=== PATIENT | female | born 1970 | race African-American/Black ===

== ENCOUNTER 2019-06-22 13:27 | Emergency (ER) | payer BC, SELFPAY ==
--- NOTE | 2019-06-22 13:33 | ED.LOWEXIN ---
HPI - Extremity Injury (Lower) General Chief Complaint: Recheck/Abnormal Lab/Rx Stated Complaint: post op complications Time Seen by Provider: 06/22/19 13:30 Source: patient and RN notes reviewed Mode of arrival: EMS Limitations: language barrier (Non-verba;) History of Present Illness HPI Narrative: Pt is a 48 y/o female presenting to the ED c/o bleeding from stump. EMS report they received a call from the pt's halfway residence stating the pt's stump post a right above knee amputation had uncontrolled bleeding. EMS state the halfway is unaware of who or where the pt had the surgery or how long ago it was. HPI is limited due to pt being non-verbal. All information provided by EMS. Onset (ago): unknown Place: home Other symptoms: none Related Data Allergies Allergy/AdvReac Type Severity Reaction Status Date / Time No Known Allergies Allergy Verified 06/22/19 13:41 Review of Systems Review of Systems: Narrative: ROS is limited due to pt being non-verbal. All systems reviewed & are unremarkable except as noted in HPI and below Hematologic/Lymphatic: Hematologic/Lymphatic: Reports other (Bleeding from RLE stump) PMFSH Past Medical History Medical History No significant past medical history Surgical History Surgical History History of right above knee amputation Social History Social History Smoking status: Unknown if ever smoked Gender identity (if verbalized by the patient): Female Exam Const: General: no acute distress, alert and ill appearing (Chronically) Nutritional Appearance: well nourished HENMT: Mouth: Yes lip normal Eyes: Conjunctivae: conjunctivae normal Resp: Effort & Inspection: normal respiratory effort Auscultation: clear to auscultation bilaterally Cardio: Rate: regular rate Rhythm: regular rhythm Skin: General skin exam: normal color Other: Warm; Dry; Healing surgical wound to rt above knee amputation with 2 small areas of wound dehiscence with minimal serous drainage ? no active bleeding Neuro: General: moves all extremities Speech: Abnormal speech present (Non-verbal) Extrem: General: full ROM Psych: Mental Status: mental status grossly normal Course Vital Signs Vital signs: Vital Signs Temperature 36.3 C L 06/22/19 13:35 Pulse Rate 107 H 06/22/19 13:35 Respiratory Rate 18 06/22/19 13:35 Blood Pressure 168/100 H 06/22/19 13:35 Pulse Oximetry 100 06/22/19 13:35 Temperature 36.3 C L 06/22/19 13:35 Pulse Rate 107 H 06/22/19 13:35 Respiratory Rate 18 06/22/19 13:35 Blood Pressure 168/100 H 06/22/19 13:35 Pulse Oximetry 100 06/22/19 13:35 MDM - Extremity Injury (Lower) MDM Narrative Medical decision making narrative: Sent from halfway for bleeding wound. No bleeding on arrival. Her surgeon is located at [facility]. Medical Records Attestation: I reviewed the patient's medical records. Lab Data Attestation: I reviewed the patient's lab results. Discharge Plan Discharge Clinical Impression: Dehiscence of wound Patient Disposition: [place] Alf/Asst Living Condition: Stable Instructions: Antibiotic Form, Wound Dehiscence (ED) Follow-up/Referrals: Chinyere Keller MD [Primary Care Provider] -
[2019-06-22 13:35] VITALS: BP 168/100; PULSE 107; RESP 18; TEMP 36.3; O2SAT 100
--- NOTE | 2019-06-22 15:52 | PC.NURSE ---
[facility] declined return trip to [facility]-way [facility] accepted return to [facility]-way ETA 1hr / Trip #[id number]
[2019-06-22 17:14] VITALS: BP 178/93; PULSE 88; RESP 18; O2SAT 100
--- NOTE | 2019-06-22 17:14 | PC.NURSE ---
[facility].
== END 2019-06-22 17:16 ==
PROVIDERS: Emergency Provider Emergency Medicine; PCP Family Medicine
DX: T87.81 Dehiscence of amputation stump (principal); Z89.611 Acquired absence of right leg above knee
CPT/HCPCS: 99281

== ENCOUNTER 2021-08-26 21:17 | Emergency (ER) | payer BC, SELFPAY ==
--- NOTE | ~2021-08-26 | CT_ITS ---
EXAMINATION: CT brain wo con INDICATION: Patient found unresponsive, altered mental status COMPARISON: None TECHNIQUE: Standard unenhanced head CT. The dose-length product (DLP) was 920.82 mGy-cm. The mA was a djusted according to patient size. Iterative reconstruction technique was employed. FINDINGS: There is a large area of encephalomalacia in the left frontal lobe. Smaller areas of enceph alomalacia are seen in the right periventricular frontal lobe as well as in the inferior frontal lobe s. No suspicious mass or intracranial hemorrhage are identified. The ventricles are normal. There is no abnormal mass effect or midline shift. The nolen-white matter differentiation is normal. The basal cisterns are patent. The orbits are normal. The paranasal sinuses, mastoids and calvarium are normal. IMPRESSION: 1. Areas of prior infarction without acute intracranial abnormality. Reviewed, dictated and finalized at location F.
[2021-08-26 21:20] VITALS: BP 153/101; PULSE 107; RESP 26; TEMP 36.1; O2SAT 100
[2021-08-26 21:28] VITALS: RESP 26
--- NOTE | 2021-08-26 21:29 | ECG_ITS ---
Measurements Intervals [place] Rate: 106 P: 71 CT: 152 QRS: 17 QRSD: 134 T: 140 QT: 372 QTc: 496 Interpretive Statements SINUS TACHYCARDIA POSSIBLE LEFT ATRIAL ENLARGEMENT [-0.1mV P-WAVE IN V1/V2] INTRAVENTRICULAR CONDUCTION DELAY(INCOMPLETE LEFT BUNDLE BRANCH BLOCK) ABNORMAL ECG NO PREVIOUS ECG AVAILABLE FOR COMPARISON Electronically Signed On 08-27-2021 15:04:16 CDT by Angel Winkler M.D.
--- NOTE | 2021-08-26 21:30 | ED.AMS ---
HPI - Altered Mental Status General Chief Complaint: Altered Mental Status Stated Complaint: OD Time Seen by Provider: 08/26/21 21:29 Source: EMS Mode of arrival: EMS Limitations: altered mental status History of Present Illness HPI narrative: Patient is a 50-year-old female brought in by EMS due to altered mental status, decreased responsiveness. According to EMS patient went out for a smoke accompanied by custodial staff member, was brought back and few moments later she was found unresponsive. When EMS arrived patient was unresponsive with pinpoint pupils, was given Narcan 2 mg IV, which reversed her symptoms, patient now alert awake and oriented x2 which is her baseline. EMS states that the nurse who was taking care of the patient told them that patient was not given any medication after she went out for smoke, but patient disputes this, told EMS that the particular nurse did give her medication. Possible patient was given the wrong medication since EMS states that the patient has not been on any opioids or pain medication, nurse was being defensive and not fully cooperative when they arrived. Patient is alert and oriented x2 upon arrival to the emergency room and has no complaints at this time. Related Data Home Medications Medication Instructions Recorded Confirmed Calcium-Vitamin D 600 mg PO DAILY 08/26/21 08/26/21 Lasix 40 mg PO DAILY 08/26/21 08/26/21 Lipitor 80 mg PO HS 08/26/21 08/26/21 Tylenol 650 mg PO PRN 08/26/21 08/26/21 Vitamin D2 50,000 unit PO WEEKLY 08/26/21 08/26/21 aspirin 81 mg PO DAILY 08/26/21 08/26/21 benzonatate 200 mg PO PRN 08/26/21 08/26/21 clonidine 0.2 mg PO TID 08/26/21 08/26/21 ferrous sulfate 325 mg PO EVERY OTHER DAY 08/26/21 08/26/21 ipratropium-albuterol 0.5 mg INHALATION PRN 08/26/21 08/26/21 isosorbide mononitrate 30 mg PO DAILY 08/26/21 08/26/21 labetalol 200 mg PO BID 08/26/21 08/26/21 losartan-hydrochlorothiazide 100 mg PO DAILY 08/26/21 08/26/21 nifedipine 60 mg PO HS 08/26/21 08/26/21 phenytoin 200 mg PO DAILY 08/26/21 08/26/21 Allergies Allergy/AdvReac Type Severity Reaction Status Date / Time No Known Allergies Allergy Verified 08/26/21 21:34 Review of Systems Review of Systems: All systems reviewed & are unremarkable except as noted in HPI and below Constitutional: Constitutional: Denies body ache(s), Denies chills, Denies excessive sweating, Denies fatigue, Denies fever(s), Denies headache(s), Denies lethargy, Denies malaise, Denies weakness and Denies weight loss Eyes: Eyes: Denies blurry vision, Denies change in vision and Denies loss of vision ENT: Denies dizziness, Denies ear discharge, Denies headache(s), Denies lip swelling, Denies epistaxis, Denies nasal congestion, Denies neck pain, Denies throat swelling and Denies tongue swelling Cardiovascular: Cardiovascular: Denies chest pain, Denies chest pain at rest, Denies chest pain with activity, Denies diaphoresis, Denies rapid heart rate, Denies edema, Denies irregular heart rhythm, Denies lightheadedness, Denies palpitations, Denies dyspnea and Denies dyspnea on exertion Respiratory: Respiratory: Denies chest congestion, Denies cough, Denies hemoptysis, Denies dyspnea and Denies dyspnea on exertion Gastrointestinal: Gastrointestinal: Denies abdominal pain, Denies melena, Denies hematochezia, Denies diarrhea, Denies nausea, Denies vomiting and Denies hematemesis Musculoskeletal: Musculoskeletal: Denies abnormal gait, Denies deformity, Denies joint swelling, Denies limited range of motion, Denies neck pain and Denies numbness Neurologic: Denies Abnormal speech present, Denies dizziness, Denies headache(s), Denies focal weakness, Denies loss of vision, Denies numbness, Denies Other visual disturbances, Denies Sensory deficit (Neuro) and Denies weakness Psychiatric: Psychiatric: Denies confusion, Denies depression, Denies auditory hallucinations, Denies homicidal ideation and Denies suicidal ideation Endocrine: Endocrine: Kar
[2021-08-26 21:41] LABS: Basophils Absolute Auto 0.1 K/mm3 (0.0-0.1); Basophils Percent Auto 0.5 % (0.2-1.2); Eosinophils Absolute Auto 0.3 K/mm3 (0-0.3); Eosinophils Percent Auto 3.3 % (0-4.4); Hemoglobin 10.3 g/dL (12.0-15.0); Immature Granulocyte Absolute 0.06 K/mm3 (0.00-0.031); Immature Granulocyte Percent A 0.6 % (0-0.5); Lymphocytes Absolute Auto 2.76 K/mm3 (0.9-3.2); Lymphocytes Percent Auto 27.8 % (18.3-44.2); Mean Corpuscular HGB Conc 31.2 g/dl (32-36); Mean Corpuscular Hemoglobin 27.8 pg (26-34); Mean Corpuscular Volume 88.9 fl (80-100); Mean Platelet Volume 10.6 fl (7.4-10.4); Monocytes Absolute Auto 0.7 K/mm3 (0.1-0.6); Monocytes Percent Auto 7.3 % (2.6-8.5); Neutrophils Percent Auto 60.5 % (45.5-73.1); Platelet Count Result 229 k/mm3 (150-375); Red Blood Count 3.71 M/mm3 (4.2-5.4); Red Cell Distribution Width 16.3 % (11.5-14.5); White Blood Count 9.9 K/mm3 (4.5-10.0)
[2021-08-26 21:55] LABS: Alanine Aminotransferase 18 U/L (4-35); Albumin Level 3.7 g/dL (3.5-5.1); Alkaline Phosphatase 110 U/L (38-126); Anion Gap 6 mmol/L (8-16); Aspartate Amino Transferase 31 U/L (14-36); Bilirubin,Total 0.2 mg/dL (0.2-1.3); Blood Urea Nitrogen 32 mg/dL (7-17); Calcium 8.4 mg/dL (8.4-10.2); Carbon Dioxide 27 mmol/L (22-30); Chloride 105 mmol/L (98-107); Estimated Glomerular Filt Rate 40; Glucose 124 mg/dL (65-110); Potassium 3.9 mmol/L (3.4-5.0); Sodium 138 mmol/L (137-145)
[2021-08-26] MEDS: SODIUM CHLORIDE 0.9% IV 1,000 ML 999 ML IV CONT (21:58)
[2021-08-26 22:10] VITALS: BP 175/91; PULSE 100; RESP 22; O2SAT 100
[2021-08-26 22:16] VITALS: BP 174/100; PULSE 108; RESP 25; O2SAT 98
[2021-08-26 22:17] VITALS: BP 150/101; PULSE 106; RESP 20; O2SAT 100
[2021-08-26 22:50] LABS: Add Urine Microscopic? YES; Appearance Urine Clear (Clear); Bacteria Urine 3+ /hpf; Bilirubin Urine Negative (Negative); Blood Urine Negative (Negative); Color Urine Yellow (Yellow); Glucose Urine UA Negative (Negative); Ketones Urine Negative (Negative); Leukocyte Esterase Ur Negative LEU/UL (Negative); Mucus Urine Rare /lpf; Nitrate Urine Positive (Negative); Protein Urine 2+ mg/dL (Negative); Specific Grav Ur 1.017 (1.001-1.035); Squamous Epithelial Cell Urine Occasional /hpf (Few); Urobilinogen Urine Negative mg/dL (<2.0); WBC Urine 0-3 /hpf
[2021-08-26 22:52] LABS: Amphetamine Screen Urine Negative (Negative); Barbiturate Screen Urine Negative (Negative); Benzodiazepines Screen Urine Negative (Negative); Cannabinoid Screen Urine Negative (Negative); Cocaine Screen Urine Negative (Negative); Methadone Screen Urine Negative (Negative); Opiate Screen Urine Negative (Negative); Phencyclidine Screen Urine Negative (Negative)
[2021-08-27 01:11] VITALS: PULSE 111; RESP 18
[2021-08-27 01:15] VITALS: PULSE 114; RESP 25
[2021-08-27 01:42] VITALS: BP 164/97; PULSE 108; RESP 16; O2SAT 95
--- NOTE | 2021-08-27 02:11 | PC.NURSE ---
Pt had episode of anxiety with hyperventilation. Pt provided an emesis bag that she breathed into and was coached with deep calming breaths. Pt tolerated well. Pt HR had increase but now decreased to normal. Oxygen maintained through episode.
[2021-08-27 02:15] VITALS: PULSE 104; RESP 16; O2SAT 93
[2021-08-27 04:00] VITALS: BP 160/97; PULSE 108; RESP 16; O2SAT 96
[2021-08-27 05:55] VITALS: BP 154/89; PULSE 110; RESP 18; O2SAT 97
--- NOTE | 2021-08-27 05:55 | PC.NURSE ---
Pts bedding change. Pt was incontinent of urine. Pt resting comfortably no needs at this time. Waiting for EMS estimated time of 0730.
--- NOTE | 2021-08-27 06:55 | PC.NURSE ---
Pt resting comfortably. Pt watching tv. Pt waiting for EMS transport.
== END 2021-08-27 05:00 ==
PROVIDERS: Emergency Provider Emergency Medicine; PCP Internal Medicine
DX: R41.82 Altered mental status, unspecified (principal); I10 Essential (primary) hypertension; E11.9 Type 2 diabetes mellitus without complications; Z86.73 Personal history of transient ischemic attack (TIA), and cerebral infarction without residual deficits; Z89.511 Acquired absence of right leg below knee; F17.200 Nicotine dependence, unspecified, uncomplicated; R00.0 Tachycardia, unspecified; R94.31 Abnormal electrocardiogram [ECG] [EKG]; Z79.82 Long term (current) use of aspirin
CPT/HCPCS: 36415; 70450; 80053; 80307; 81001; 85025; 93005; 96360; 96361; 99284; J7030

== ENCOUNTER 2021-10-30 06:38 | Inpatient (IN) | payer BC, SELFPAY ==
[2021-10-30] VITALS (41 sets, daily range): BP systolic 139–214; BP diastolic 78–113; PULSE 78–112; RESP 14–35; TEMP 36.2–36.6; O2SAT 93–100; BMI 66.1
--- NOTE | ~2021-10-30 | XR_ITS ---
EXAMINATION: XR chest 1V portable INDICATION: Respiratory distress TECHNIQUE: Portable AP chest at 0806 hours COMPARISON: None available FINDINGS: There are diffuse opacities throughout all lung zones relative sparing of the left lung ape x. Small pleural effusions are suggested. There is no pneumothorax. Cardiomegaly is noted. IMPRESSION: 1. Diffuse lung disease, with relative sparing of the left lung apex consistent with pneumonia and/or pulmonary edema. 2. Cardiomegaly. 3. Small pleural effusions. Reviewed, dictated and finalized at location A.
--- NOTE | 2021-10-30 06:42 | ECG_ITS ---
Measurements Intervals [place] Rate: 111 P: 63 FL: 136 QRS: 3 QRSD: 129 T: 149 QT: 352 QTc: 479 Interpretive Statements SINUS TACHYCARDIA POSSIBLE LEFT ATRIAL ENLARGEMENT [-0.1mV P WAVE IN V1/V2] LEFT VENTRICULAR HYPERTROPHY AND ST-T CHANGE [VOLTAGE CRITERIA PLUS ST/T ABNORMALITY] INCOMPLETE LEFT BUNDLE BRANCH BLOCK COMPARED TO ECG 08/26/2021 21:36:55 NO DIFFERENCE Electronically Signed On 10-31-2021 7:00:48 CDT by Angel Winkler M.D.
--- NOTE | 2021-10-30 06:44 | ED.SOB ---
HPI - SOB/Dyspnea General Chief Complaint: Shortness of Breath/Dyspnea <Mary Bauer MD - Last Filed: 10/30/21 07:14> Stated Complaint: Resp Distress <Mary Bauer MD - Last Filed: 10/30/21 07:14> Time Seen by Provider: 10/30/21 06:47 <Mary Bauer MD - Last Filed: 10/30/21 07:14> History of Present Illness HPI Narrative: Patient is a 51-year-old female with a history of COPD, acid reflux with esophagitis, chronic kidney disease, anemia, hypertension, congestive heart failure, presenting to the emergency department in respiratory failure on CPAP. Patient awakened dyspneic this morning, the time of EMS arrival she was hypoxic, and full on respiratory distress and failure, placed on CPAP and given a DuoNeb treatment in route. At the time of arrival, patient is fatigued appearing, awake, alert, currently protecting her airway. History is limited secondary to acuity of condition. <Mary Bauer MD - Last Filed: 10/30/21 07:14> Related Data Home Medications: Home Medications Medication Instructions Recorded Confirmed acetaminophen 325 mg tablet 325 mg PO Q6H PRN Pain (Scale 08/26/21 10/30/21 (Tylenol) Score 1-3) aspirin 81 mg chewable tablet 81 mg PO DAILY 08/26/21 10/30/21 (Aspirin Childrens) atorvastatin 80 mg tablet (Lipitor) 80 mg PO HS 08/26/21 10/30/21 benzonatate 200 mg capsule 200 mg PO TID PRN Cough 08/26/21 10/30/21 calcium carb-vit D3-minerals 600 2 tablet PO DAILY 08/26/21 10/30/21 mg calcium-400 unit tablet clonidine HCl 0.2 mg tablet 0.2 mg PO TID 08/26/21 10/30/21 ergocalciferol (vitamin D2) 1,250 50,000 unit PO WEEKLY 08/26/21 10/30/21 mcg (50,000 unit) capsule (Vitamin D2) ferrous sulfate 325 mg (65 mg 325 mg PO EVERY OTHER DAY 08/26/21 10/30/21 iron) tablet furosemide 40 mg tablet (Lasix) 40 mg PO DAILY 08/26/21 10/30/21 ipratropium 0.5 mg-albuterol 3 mg 0.5 mg inhalation BID PRN 08/26/21 10/30/21 (2.5 mg base)/3 mL nebulization Shortness Of Breath Or Wheezing soln isosorbide mononitrate 30 mg 30 mg PO DAILY 08/26/21 10/30/21 tablet,extended release 24 hr labetalol 200 mg tablet 200 mg PO Q12H 08/26/21 10/30/21 losartan 100 1 tablet PO DAILY 08/26/21 10/30/21 mg-hydrochlorothiazide 12.5 mg tablet nifedipine 60 mg tablet,extended 60 mg PO HS 08/26/21 10/30/21 release phenytoin 100 mg/4 mL oral 200 mg PO DAILY 08/26/21 10/30/21 suspension escitalopram oxalate 10 mg tablet 1 tablet PO DAILY 10/30/21 10/30/21 phenytoin 100 mg/4 mL oral 200 mg PO TID 10/30/21 10/30/21 suspension potassium chloride 10 mEq 10 meq PO DAILY 10/30/21 10/30/21 capsule,extended release spironolactone 25 mg tablet 1 tablet PO DAILY 10/30/21 10/30/21 <Mary Bauer MD - Last Filed: 10/30/21 07:14> Allergies/Adverse Reactions: Allergies Allergy/AdvReac Type Severity Reaction Status Date / Time No Known Allergies Allergy Verified 09/21/21 14:37 <Mary Bauer MD - Last Filed: 10/30/21 07:14> Review of Systems Review of Systems: Unable to be obtained secondary to acuity of condition <Mary Bauer MD - Last Filed: 10/30/21 07:14> [facility] Past Medical History Medical History: Medical History (Updated 10/30/21 @ 16:15 by Sanket Henning MD) Asthma-COPD overlap syndrome Cerebrovascular accident Congestive heart failure Gastroesophageal reflux disease Hyperlipidemia Hypertension Intellectual disability Iron deficiency anemia Vitamin D deficiency <Mary Bauer MD - Last Filed: 10/30/21 07:14> Surgical History Surgical History: Surgical History History of right above knee amputation <Mary Bauer MD - Last Filed: 10/30/21 07:14> Family History Family History: Family History Father Congestive heart failure Hypertension Mother Congestive heart failure Hypertension <Ka
[2021-10-30 06:53] LABS: Glucose Point of Care 157 mg/dl (65-105)
[2021-10-30] MEDS: IPRATROPIUM BR 0.02% INH SOLN 0.5 MG/2.5 ML VIAL 2 MG INHALATION (06:57)
[2021-10-30] MEDS: ALBUTEROL SULFATE NEB 2.5 MG/3 ML INH 20 MG INHALATION (06:57)
[2021-10-30] MEDS: methylPREDNISolone SOD SUCC 125 MG VIAL IV PUSH (07:07)
[2021-10-30] MEDS: MAGNESIUM SULF 2 GM/WATER 50ML 2 GM/50 ML BAG IVPB (07:07)
[2021-10-30] MEDS: SODIUM CHLORIDE 0.9% IV 500 ML 999 ML IV CONT (07:08)
[2021-10-30 07:21] LABS: Fractional Inspired Oxygen 80 %; HCO3 ABG 29.5 mEq/l (22.0-26.0); Oxygen Content ABG 15.1 %vol (16.0-22.0); Oxygen Saturation ABG 98.9 % (95.0-100.0); Oxyhemoglobin 97.7 % THb (90.0-100.0); PCO2 ABG 48.7 mmHg (35.0-45.0); PO2 ABG 148.3 mmHg (80.0-100.0); PO2 FiO2 Ratio Arterial Blood 1.85 %; Total Hemoglobin 10.8 g/dL (12.0-18.0)
[2021-10-30 07:22] LABS: Device BIPAP; Modified Allen's Test Pass; Site Drawn LEFT RADIAL
[2021-10-30 07:23] LABS: Expiratory Pressure 8 cmH2O; Inspiratory Pressure 16 cmH2O
[2021-10-30 07:23] LABS: Lactic Acid Reflex 1.1 mmol/L (0.7-2.0)
[2021-10-30 07:24] LABS: Alanine Aminotransferase 29 U/L (6-35); Albumin Level 3.9 g/dL (3.5-5.1); Alkaline Phosphatase 140 U/L (38-126); Anion Gap 6 mmol/L (8-16); Aspartate Amino Transferase 34 U/L (14-36); Bilirubin,Total 0.3 mg/dL (0.2-1.3); Blood Urea Nitrogen 28 mg/dL (7-17); Calcium 8.6 mg/dL (8.4-10.2); Carbon Dioxide 30 mmol/L (22-30); Chloride 107 mmol/L (98-107); Estimated Glomerular Filt Rate 48; Glucose 114 mg/dL (65-110); Potassium 4.3 mmol/L (3.4-5.0); Sodium 143 mmol/L (137-145)
[2021-10-30 07:33] LABS: Basophils Percent Auto 0.3 % (0.2-1.2); Eosinophils Absolute Auto 0.1 K/mm3 (0-0.3); Eosinophils Percent Auto 1.2 % (0-4.4); Immature Granulocyte Absolute 0.05 K/mm3 (0.00-0.031); Immature Granulocyte Percent A 0.5 % (0-0.5); Lymphocytes Absolute Auto 1.14 K/mm3 (0.9-3.2); Lymphocytes Percent Auto 11.1 % (18.3-44.2); Mean Corpuscular HGB Conc 30.3 g/dl (32-36); Mean Corpuscular Hemoglobin 27.2 pg (26-34); Mean Corpuscular Volume 89.9 fl (80-100); Mean Platelet Volume 11.3 fl (7.4-10.4); Monocytes Absolute Auto 0.5 K/mm3 (0.1-0.6); Monocytes Percent Auto 5.2 % (2.6-8.5); Neutrophils Absolute Auto 8.4 K/mm3 (1.3-6.7); Neutrophils Percent Auto 81.7 % (45.5-73.1); Platelet Count Result 228 k/mm3 (150-375); Red Blood Count 3.67 M/mm3 (4.2-5.4); Red Cell Distribution Width 17.2 % (11.5-14.5); White Blood Count 10.3 K/mm3 (4.5-10.0)
[2021-10-30 07:43] LABS: NT Pro B Type Natriuretic Pept 8600 pg/mL (5-100)
[2021-10-30 07:52] LABS: SARS-CoV-2 RNA PCR Negative
[2021-10-30 08:02] LABS: INR 1.2; Prothrombin Time 15.1 Seconds (11.1-14.7)
[2021-10-30 08:03] LABS: Partial Thromboplastin Time 32.6 SECONDS (22.3-36.8)
[2021-10-30] MEDS: NITROGLYCERIN OINTMENT 1 INCH DOSE 2 INCH TRANSDERM (08:39)
[2021-10-30] MEDS: FUROSEMIDE INJ 40 MG/4 ML VIAL IV PUSH ×2 (08:40→20:28)
[2021-10-30 08:42] LABS: Appearance Urine Clear (Clear); Bilirubin Urine Negative (Negative); Blood Urine Trace-lysed (Negative); Color Urine Yellow (Yellow); Glucose Urine UA Negative (Negative); Ketones Urine Negative (Negative); Leukocyte Esterase Ur Negative LEU/UL (Negative); Nitrate Urine Positive (Negative); Protein Urine 3+ mg/dL (Negative); Specific Grav Ur 1.025 (1.001-1.035)
[2021-10-30 08:47] LABS: Bacteria Urine 1+ /hpf; Mucus Urine Rare /lpf; Squamous Epithelial Cell Urine Occasional /hpf (Few); WBC Urine 0-3 /hpf
[2021-10-30 08:56] LABS: Add Urine Microscopic? YES
[2021-10-30 09:07] LABS: Influenza A QL RT-PCR Negative (Negative); Influenza B QL RT-PCR Negative (Negative)
[2021-10-30] MEDS: hydrALAZINE HCL 20 MG/ML VIAL 10 MG IV PUSH (09:59)
[2021-10-30] MEDS: ENOXAPARIN 100 MG/ML SYRINGE SUB-Q ×2 (11:00→20:26)
[2021-10-30] MEDS: ENOXAPARIN 60 MG/0.6 ML SYRINGE 55 MG SUB-Q ×2 (11:00→20:27)
--- NOTE | 2021-10-30 12:38 | ADMGEN ---
This patient, Mirela Preston, was admitted to IMU Room 231-01 at 1237. Patient/family oriented to hospital policies and general routines including ID bracelet, bed and alarms, visiting hours, pain management, procedures, bathroom and other care routines, personal items, smoking policy, room service/diet, and visiting hours. Information on how to activate the Rapid Response Team has been discussed. Patient/Family are encouraged to report perceived risks to care and to ask questions if they do not understand what they are told or what they should do.
--- NOTE | 2021-10-30 13:00 | PM.IMHP ---
H&P: HPI History of Present Illness Date/Time: 10/30/21 13:00 Chief Complaint: Shortness of breath. Narrative: This is a 51-year-old female with reported history of stroke, hypertension, diabetes, chronic kidney disease, anemia, congestive heart failure, asthma/COPD overlap, and chronic respiratory failure on 2 L nasal cannula who presented to the emergency department via EMS from [facility] with complaints of shortness of breath. She has underlying intellectual disability and can not provide some history however some of the following is supplemented via a review of her electronic medical records as well as discussions with her aunt, was also her power of personal injury attorney. She was in her usual state of health when she went to bed last night. She was wakened from sleep this morning with shortness of breath and staff had initially put her on 2 L nasal cannula though unfortunately she continued to become increasingly short of breath and emergency services were contacted. On EMS arrival her SpO2 was 70% on room air and she was placed on a CPAP in given a DuoNeb. Chest x-ray done on arrival showed diffuse lung disease with relative sparing of the left apex consistent with pneumonia and/or pulmonary edema and she is being admitted in this setting. ProBNP was elevated 8600. Influenza A and B and SARS-CoV-2 by PCR were all negative. She was transitioned to BiPAP briefly which has since been removed for her to eat lunch. At the time my evaluation she is resting and watching television. She continues to feel somewhat short of breath though that does not seem necessarily unusual. She is not complaining of any pain. No fever, cough, chest pain, pleuritic pain, nausea, vomiting, or diarrhea. Review of Systems Review of Systems: 12 systems were reviewed and are negative. [facility] Past Medical History Medical History (Updated 10/30/21 @ 15:55 by Julita Rosas PA-C) Asthma-COPD overlap syndrome Cerebrovascular accident Congestive heart failure Gastroesophageal reflux disease Hyperlipidemia Hypertension Intellectual disability Iron deficiency anemia Vitamin D deficiency Surgical History Surgical History History of right above knee amputation Family History Family History Father Congestive heart failure Hypertension Mother Congestive heart failure Hypertension Social History Social History (Updated 10/30/21 @ 15:41 by Julita Rosas PA-C) Social History: Surrogate decision maker: Laxmi Marrero, aunt. Code status: Full code. Smoking packs per day: 1 Smoking cigarettes per day: 20.0 Years smoked: 20 Smoking pack-years: 20.00 Smoking status: Former smoker Alcohol intake: never Substance use: never Additional living arrangements comments: Resident at [facility]. Additional occupation/education comments: Disabled. Spiritual care concerns: No Meds Home Medications and Allergies Home Medications Medication Instructions Recorded Confirmed Type acetaminophen 325 mg tablet 325 mg PO Q6H PRN Pain (Scale 08/26/21 10/30/21 History (Tylenol) Score 1-3) aspirin 81 mg chewable tablet 81 mg PO DAILY 08/26/21 10/30/21 History (Aspirin Childrens) atorvastatin 80 mg tablet (Lipitor) 80 mg PO HS 08/26/21 10/30/21 History benzonatate 200 mg capsule 200 mg PO TID PRN Cough 08/26/21 10/30/21 History calcium carb-vit D3-minerals 600 2 tablet PO DAILY 08/26/21 10/30/21 History mg calcium-400 unit tablet clonidine HCl 0.2 mg tablet 0.2 mg PO TID 08/26/21 10/30/21 History ergocalciferol (vitamin D2) 1,250 50,000 unit PO WEEKLY 08/26/21 10/30/21 History mcg (50,000 unit) capsule (Vitamin D2) ferrous sulfate 325 mg (65 mg 325 mg PO EVERY OTHER DAY 08/26/21 10/30/21 History iron) tablet furosemide 40 mg tablet (Lasix) 40 mg PO DAILY 08/26/21 10/30/21
[2021-10-30 17:09] LABS: Hemoglobin A1C 5.7 % (<5.7)
[2021-10-30] MEDS: cloNIDine HCL 0.2 MG TABLET PO (17:50)
[2021-10-30 18:43] LABS: Phenytoin Dilantin 12 ug/mL (10-20)
[2021-10-30 18:59] LABS: Thyroid Stimulating Hormone Reflex 0.884 uIU/mL (0.465-4.68)
[2021-10-30] MEDS: ALBUTEROL SULFATE NEB 2.5 MG/3 ML INH 5 MG INHALATION (19:11)
[2021-10-30] MEDS: LABETALOL HCL 100 MG TABLET 200 MG PO (20:26)
[2021-10-30] MEDS: NIFEdipine 30 MG TAB.ER.24 60 MG PO (20:26)
[2021-10-30] MEDS: ATORVASTATIN 40 MG TABLET 80 MG PO (20:26)
--- NOTE | 2021-10-30 23:54 | PCRTNOTE ---
U/A to perform apnea link, pt in distress, tachypneic, when off BIPAP
[2021-10-31] VITALS (28 sets, daily range): BP systolic 126–155; BP diastolic 81–92; PULSE 81–98; RESP 18–28; TEMP 36.1–36.9; O2SAT 97–100
[2021-10-31] MEDS: ALBUTEROL SULFATE NEB 2.5 MG/3 ML INH 5 MG INHALATION ×4 (02:54→20:02)
[2021-10-31 05:35] LABS: Hematocrit 32.5 % (37.0-47.0); Hemoglobin 9.4 g/dL (12.0-15.0); Mean Corpuscular HGB Conc 28.9 g/dl (32-36); Mean Corpuscular Hemoglobin 27.2 pg (26-34); Mean Corpuscular Volume 93.9 fl (80-100); Mean Platelet Volume 11.4 fl (7.4-10.4); Platelet Count Result 185 k/mm3 (150-375); Red Blood Count 3.46 M/mm3 (4.2-5.4); Red Cell Distribution Width 17.3 % (11.5-14.5); White Blood Count 9.2 K/mm3 (4.5-10.0)
[2021-10-31 05:45] LABS: Anion Gap 5 mmol/L (8-16); Blood Urea Nitrogen 37 mg/dL (7-17); Calcium 8.1 mg/dL (8.4-10.2); Carbon Dioxide 32 mmol/L (22-30); Chloride 103 mmol/L (98-107); Estimated CRCL calculation 48 ml/min; Estimated Glomerular Filt Rate 36; Glucose 96 mg/dL (65-110); Magnesium 2.4 mg/dL (1.6-2.3); Potassium 4.2 mmol/L (3.4-5.0); Sodium 140 mmol/L (137-145)
[2021-10-31] MEDS: ASPIRIN 81 MG CHEWABLE TABLET PO (09:31)
[2021-10-31] MEDS: ISOSORBIDE MONONITRATE 30 MG TAB.ER.24H PO (09:32)
[2021-10-31] MEDS: POTASSIUM CHLORIDE 10 MEQ TABLET.ER PO (09:32)
[2021-10-31] MEDS: ESCITALOPRAM OXALATE 10 MG TABLET PO (09:32)
[2021-10-31] MEDS: hydroCHLOROthiazide 12.5 MG CAPSULE PO (09:32)
[2021-10-31] MEDS: predniSONE 20 MG TABLET 40 MG PO (09:33)
--- NOTE | 2021-10-31 09:33 | PM.CNCAR ---
Assessment and Plan Assessment and plan (1) Acute exacerbation of congestive heart failure: Code(s): I50.9 - Heart failure, unspecified Status: Acute Plan This is a 51-year-old black female who presents with severe hypoxemia. In that setting she has a elevated troponin level the troponins are flat and there is no chest pain event nor any new changes in her electrocardiogram. Her incomplete left bundle branch block is a chronic finding. She has not responded very well to 40 mg q.12 of Lasix I am going to give her 80 mg this morning. The patient's substrate is unknown to us she obviously is being treated with a very aggressive antihypertensive regimen. We will obtain an echocardiogram when the vp legal affairs is R back got tomorrow and leave further recommendations. I do not anticipate recommending catheterization to investigate this elevated troponin given her massive obesity and lack of ischemic symptoms. Angel Winkler MD [facility] History of Present Illness History of Present Illness Consult date/time: 10/31/21 09:33 Reason For Visit: COPD/CHF/hypoxia/NSTEMiI Narrative: This is a 51-year-old woman who I am seeing at the request of the hospitalist because of findings consistent with congestive heart failure and elevated troponin level. The patient is incapable of providing any history to me she is a lady that is institutionalized apparently with significant cognitive deficit. She was brought here yesterday from the her residence where she resides at the [facility] because of hypoxemia. Apparently she was found to be in respiratory distress had oxygen saturation in the 70s and was brought to the emergency room for further evaluation. She denies having any chest pain yesterday or since the admission to the hospital. She had an electrocardiogram done in the emergency room which showed sinus tachycardia with an incomplete left bundle branch block. The tracing looks no different than prior tracing in her chart here. The patient's troponin levels are significantly elevated but are flat at 1.4-1.5. In this setting she is being seen in consultation. She has severe hypertension and is on an aggressive multi-drug blood pressure regimen. She according to the chart is known to have history of congestive heart failure the details of which are unknown she does not receive any of her care at [facility]. She was placed on a BiPAP noninvasive ventilator yesterday and admitted to the IMU. She stabilized with this and is now on 4 L of nasal cannula oxygen. The patient is able to answer questions by nodding her head in the affirmative or negative but not able to provide any other history. She is a previous amputee of the right lower extremity above the knee the nurses indicate the family said that was done in the recent years because of a gangrenous right lower extremity. We have no idea where that procedure was done or any evaluation that might have occurred at that time. This lady is massively obese with a BMI of 66 and that is with the absence of a right lower extremity. Chest x-ray on admission showed diffuse congestion sparing the left upper lung field. Her medical regimen for her hypertension includes clonidine, isosorbide, labetalol, losartan, and nifedipine as well as spironolactone. Review of Systems Review of Systems: ROS unobtainable: Yes unobtainable due to mental status PMFSH Past Medical History Medical History (Updated 10/30/21 @ 16:15 by Sanket Henning MD) Asthma-COPD overlap syndrome Cerebrovascular accident Congestive heart failure Gastroesophageal reflux disease Hyperlipidemia Hypertension Intellectual disability Iron deficiency anemia Vitamin D deficiency Surgical History Surgical History History of right above knee amputation Family History Family History Father Treyti
[2021-10-31] MEDS: cloNIDine HCL 0.2 MG TABLET PO ×3 (09:34→18:21)
[2021-10-31] MEDS: SPIRONOLACTONE 25 MG TABLET PO (09:35)
[2021-10-31] MEDS: ENOXAPARIN 100 MG/ML SYRINGE SUB-Q ×2 (09:35→21:22)
[2021-10-31] MEDS: FERROUS SULFATE 324 MG TABLET PO (09:35)
[2021-10-31] MEDS: ENOXAPARIN 60 MG/0.6 ML SYRINGE 55 MG SUB-Q ×2 (09:35→21:23)
[2021-10-31] MEDS: LABETALOL HCL 100 MG TABLET 200 MG PO ×2 (09:36→21:23)
[2021-10-31] MEDS: FUROSEMIDE INJ 40 MG/4 ML VIAL IV PUSH ×3 (09:37→21:22)
--- NOTE | 2021-10-31 11:43 | PC.NURSE ---
Called Dr. Romano with 5 beat run of V-tach. No new orders at this time.
[2021-10-31] MEDS: LOSARTAN POTASSIUM 100 MG TABLET PO (12:53)
--- NOTE | 2021-10-31 13:18 | PC.NURSE ---
Patient was witnessed putting multiple forks full of food into her mouth at one time, then coughing while trying to swallow everything. Patient healthcare insurance sales agent has been advised to sit with patient while she eats and remind her to slow down and take one bite at a time.
--- NOTE | 2021-10-31 16:05 | PM.IMPN ---
Progress Note: A&P Assessment and Plan (1) Acute and chronic respiratory failure: Code(s): J96.20 - Acute and chronic respiratory failure, unspecified whether with hypoxia or hypercapnia Status: Acute Assessment and Plan: Patient's SpO2 was reportedly 70% on room air on EMS arrival this morning. She was placed on CPAP, subsequent BiPAP, and she is now on high-flow nasal cannula. She is awake, alert, and oriented and has just finished her lunch. Hypoxia today is likely due to pulmonary edema in addition to mild COPD exacerbation. Pneumonia seems unlikely. Continue to wean oxygen as tolerated. I suspect that she has chronic respiratory failure related to her asthma/COPD overlap syndrome and probable underlying obstructive sleep apnea and obesity hypoventilation syndrome. Apnea link ordered for tonight. 10/31/2021 Interval history: morbidly obese female with BMI of 65 presented with shortness of breath secondary to multifactorial congestive heart failure being treated with Lasix IV, COPD being treated steroid and bronchodilator, hypoventilation due to morbid obesity, and history of chronic respiratory failure on 2 L nasal cannula, patient was placed BiPAP briefly, patient clinical symptoms have improved, currently patient on nasal cannula requiring 6 L of oxygen, patient also has elevated tropes patient seen by upper cutter did not suspect acute coronary syndrome or rupture of the plaque rather type 2 myocardial infarction secondary to hypoxia. patient remains clinically stable will have PT OT evaluate the patient and further recommendation to follow. (2) Acute exacerbation of congestive heart failure: Code(s): I50.9 - Heart failure, unspecified Status: Acute Assessment and Plan: Type unknown, echocardiogram pending. History seems consistent with flash pulmonary edema. Continue IV diuresis with Lasix 40 mg b.i.d. with close monitoring of I/O, daily weights, and renal function. (3) Acute non-ST elevation myocardial infarction (NSTEMI): Code(s): I21.4 - Non-ST elevation (NSTEMI) myocardial infarction Status: Acute Assessment and Plan: She is not having any chest pain whatsoever. EKG was reviewed and shows some nonspecific T-wave changes and evidence of LVH. Likely these are elevated in the setting of hypertensive urgency, hypoxia, and congestive heart failure. She was started on enoxaparin 1 milligram/kilogram b.i.d. in the emergency department and we will continue with that for now. Echocardiogram has been ordered for further evaluation. Dr. Winkler was consulted by the ED physician and his input is appreciated. (4) Asthma-COPD overlap syndrome: Code(s): J44.9 - Chronic obstructive pulmonary disease, unspecified Status: Acute Assessment and Plan: Probable mild COPD exacerbation. She was given magnesium and Solu-Medrol in the emergency department. Continue scheduled updrafts at this time. Will start a short course of prednisone tomorrow morning. No indication for antibiotics at this time. (5) Chronic kidney disease: Code(s): N18.9 - Chronic kidney disease, unspecified Status: Acute Assessment and Plan: Creatinine is stable on review of previous labs and this will be monitored closely while diuresing. (6) Hypertensive urgency: Code(s): I16.0 - Hypertensive urgency Status: Acute Assessment and Plan: Blood pressure was as high as 214/108 in the emergency department, this may very well have precipitated her flash pulmonary edema. She was started on nitro paste in the ER and her blood pressures have improved. It looks like she was also given hydralazine. I expect her blood pressures to continue to improve with diuresis thus will discontinue nitroglycerin paste an resume her antihypertensives. Continue to monitor closely. Subjective Date/time seen: 10/31/21 16:05 This is a 51-year-old female with reported history of stroke,
[2021-10-31] MEDS: NIFEdipine 30 MG TAB.ER.24 60 MG PO (21:23)
[2021-10-31] MEDS: ATORVASTATIN 40 MG TABLET 80 MG PO (21:24)
[2021-11-01] VITALS (21 sets, daily range): BP systolic 127–173; BP diastolic 63–90; PULSE 77–97; RESP 18–24; TEMP 36.4–37; O2SAT 91–100
[2021-11-01] MEDS: ALBUTEROL SULFATE NEB 2.5 MG/3 ML INH 5 MG INHALATION ×3 (02:18→21:21)
--- NOTE | 2021-11-01 02:42 | PCRCNOTE ---
ApneaLink: Patient still tachypneic and requiring a high oxygen level to maintain stability. [facility] is holding ApneaLink for tonight until patient gets closer to her baseline. Need to clarify if the patient is already on CPAP at night because she states she wears a mask when she sleeps. Is there a need for an ApneaLink if the patient is already diagnosed with CHACE and on CPAP? Clarification needed.
[2021-11-01] MEDS: IPRATROPIUM BR 0.02% INH SOLN 0.5 MG/2.5 ML VIAL (08:22)
[2021-11-01] MEDS: ENOXAPARIN 60 MG/0.6 ML SYRINGE 55 MG SUB-Q ×2 (08:41→20:43)
[2021-11-01] MEDS: ISOSORBIDE MONONITRATE 30 MG TAB.ER.24H PO (08:41)
[2021-11-01] MEDS: cloNIDine HCL 0.2 MG TABLET PO ×3 (08:41→17:15)
[2021-11-01] MEDS: LABETALOL HCL 100 MG TABLET 200 MG PO ×2 (08:41→20:44)
[2021-11-01] MEDS: hydroCHLOROthiazide 12.5 MG CAPSULE PO (08:41)
[2021-11-01] MEDS: FUROSEMIDE INJ 40 MG/4 ML VIAL IV PUSH ×2 (08:41→20:42)
[2021-11-01] MEDS: SPIRONOLACTONE 25 MG TABLET PO (08:42)
[2021-11-01] MEDS: POTASSIUM CHLORIDE 10 MEQ TABLET.ER PO (08:42)
[2021-11-01] MEDS: predniSONE 20 MG TABLET 40 MG PO (08:42)
[2021-11-01] MEDS: ESCITALOPRAM OXALATE 10 MG TABLET PO (08:42)
[2021-11-01] MEDS: ASPIRIN 81 MG CHEWABLE TABLET PO (08:42)
[2021-11-01] MEDS: ENOXAPARIN 100 MG/ML SYRINGE SUB-Q ×2 (08:42→20:43)
--- NOTE | 2021-11-01 09:38 | PCSTNOTE ---
Please refer to the Bedside Swallow Evaluation in the EMR. Please note, silent aspiration cannot be ruled out at bedside.
[2021-11-01] MEDS: LOSARTAN POTASSIUM 100 MG TABLET PO (10:01)
[2021-11-01] MEDS: PERFLUTREN LIPID MICROSPHERES 1.5 ML VIAL DILUTED TO 10 ML TOTAL VOLUME IV PUSH (10:06)
--- NOTE | 2021-11-01 10:07 | IVDEFINITY ---
Prior to administration of IV Definity the patient was educated on the risks and benefits of the imaging enhancing agent including potential adverse side effects. The patient verbalized understanding. Allergies were verified. No exclusion criteria were identified and at least one of the following inclusion criteria were met: 1) physician request, 2) patient technically difficult to image (per the [place] [employer] guidelines of two or more segments not discernable within the apical view), or 3) questionable left ventricular function. ?
--- NOTE | 2021-11-01 10:29 | PCOTNOTE ---
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 Spoke with MD Dr. Romano, who is agreeable to discharge without evaluation due to patient being at baseline level. Discharging OT evaluation at this time. Care coordination updated.
--- NOTE | 2021-11-01 10:33 | PCPTNOTE ---
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 Spoke with MD Dr. Romano, who is agreeable to discharge without evaluation due to patient being at baseline level. Discharging OT evaluation at this time. Care coordination updated.
--- NOTE | 2021-11-01 10:38 | PCCARD ---
Bubble study not available at time of echo. Pt informed we may be back for additional images per industrial welder request. Elmo
--- NOTE | 2021-11-01 11:18 | PM.PNCARD ---
Progress Note: A&P Assessment and Plan (1) Acute exacerbation of congestive heart failure: Code(s): I50.9 - Heart failure, unspecified Status: Acute Assessment and Plan: Presented with hypoxia and signs of CHF. She is being diuresed. Improving. Continue IV furosemide for now. (2) Elevated troponin: Code(s): R77.8 - Other specified abnormalities of plasma proteins Status: Acute Assessment and Plan: Elevated but essentially flat. EKG showing sinus tachycardia with incomplete left bundle branch block. She is not capable of giving any history of chest pain but does deny chest pain today when asked. No plans to pursue an ischemic evaluation at this point. Subjective Date/time seen: 11/01/21 11:18 Cardiology follow up for CHF, elevated troponin Breathing is better today. She denies any chest pain. Review of Systems Review of Systems: ROS unobtainable: Yes unobtainable due to mental status Exam Const: General: no acute distress Nutritional Appearance: obese HENMT: Mouth: Yes moist mucous membranes Eyes: Sclera: sclerae normal Neck: Neck: supple Resp: Auscultation: rhonchi (anteriorally. Unable to assess posterior lung daniels ) Cardio: Rate: regular rate Rhythm: regular rhythm Heart sounds: no murmurs GI: Auscultation: normal bowel sounds Skin: General skin exam: normal color Neuro: Cognition (Neuro): abnormal cognition Extrem: Right lower extremity: lower leg (AKA ) Psych: Mental Status: mental status grossly abnormal Objective Data Vital Signs Vital Signs: Vital Signs - 24 hr 10/31/21 12:00 10/31/21 12:00 10/31/21 12:00 Temperature 36.8 C Pulse Rate 83 86 Respiratory Rate 24 H Blood Pressure 126/83 Pulse Oximetry 100 100 Oxygen Delivery High Flow Nasal Cannula Oxygen Flow Rate 6 Fraction of Inspired Oxygen 10/31/21 13:47 10/31/21 13:56 10/31/21 14:00 Temperature Pulse Rate 92 88 91 Respiratory Rate 28 H Blood Pressure Pulse Oximetry Oxygen Delivery Oxygen Flow Rate Fraction of Inspired Oxygen 10/31/21 16:00 10/31/21 16:00 10/31/21 16:00 Temperature 36.9 C Pulse Rate 88 87 Respiratory Rate 24 H Blood Pressure 155/92 H Pulse Oximetry 100 100 Oxygen Delivery High Flow Nasal Cannula Oxygen Flow Rate 6 Fraction of Inspired Oxygen 10/31/21 18:00 10/31/21 20:00 10/31/21 20:04 Temperature 36.6 C Pulse Rate 93 90 90 Respiratory Rate 18 24 H Blood Pressure 138/90 Pulse Oximetry 97 99 Oxygen Delivery High Flow Nasal Cannula Oxygen Flow Rate 5 Fraction of Inspired Oxygen 10/31/21 20:04 10/31/21 20:15 10/31/21 21:23 Temperature Pulse Rate 90 90 88 Respiratory Rate 24 H 24 H Blood Pressure Pulse Oximetry Oxygen Delivery Oxygen Flow Rate Fraction of Inspired Oxygen 10/31/21 20:00 10/31/21 20:00 10/31/21 22:00 Temperature Pulse Rate 92 89 Respiratory Rate Blood Pressure Pulse Oximetry 100 Oxygen Delivery High Flow Nasal Cannula Oxygen Flow Rate 5 Fraction of Inspired Oxygen 10/31/21 23:58 11/01/21 00:00 11/01/21 00:00 Temperature 36.7 C Pulse Rate 81 82 Respiratory Rate 18 Blood Pressure 137/89 Pulse Oximetry 100 100 Oxygen Delivery BiPAP Oxygen Flow Rate Fraction of Inspired Oxygen 50 10/31/21 23:40 11/01/21 02:00 11/01/21 02:22 Temperature Pulse Rate 82 77 80 Respiratory Rate 22 H 22 H Blood Pressure Pulse Oximetry 97 100 Oxygen Delivery BiPAP BiPAP Oxygen Flow Rate Fraction of Inspired Oxygen 11/01/21 02:22 11/01/21 02:42 11/01/21 04:00 Temperature 36.5 C Pulse Rate 80 80 82 Respiratory Rate 22 H 22 H 20 Blood Pressure 155/89 H Pulse Oximetry 95 Oxygen Delivery Oxygen Flow Rate Fraction of Inspired Oxygen 11/01/21 04:00 11/01/21 04:00 11/01/21 05:30 Temperature Pulse Rate 84 88 Respiratory Rate Blood Pressure Pulse
--- NOTE | 2021-11-01 15:37 | PM.IMPN ---
Progress Note: A&P Assessment and Plan (1) Acute and chronic respiratory failure: Code(s): J96.20 - Acute and chronic respiratory failure, unspecified whether with hypoxia or hypercapnia Status: Acute Assessment and Plan: Patient's SpO2 was reportedly 70% on room air on EMS arrival this morning. She was placed on CPAP, subsequent BiPAP, and she is now on high-flow nasal cannula. She is awake, alert, and oriented and has just finished her lunch. Hypoxia today is likely due to pulmonary edema in addition to mild COPD exacerbation. Pneumonia seems unlikely. Continue to wean oxygen as tolerated. I suspect that she has chronic respiratory failure related to her asthma/COPD overlap syndrome and probable underlying obstructive sleep apnea and obesity hypoventilation syndrome. Apnea link ordered for tonight. 10/31/2021 Interval history: morbidly obese female with BMI of 65 presented with shortness of breath secondary to multifactorial congestive heart failure being treated with Lasix IV, COPD being treated steroid and bronchodilator, hypoventilation due to morbid obesity, and history of chronic respiratory failure on 2 L nasal cannula, patient was placed BiPAP briefly, patient clinical symptoms have improved, currently patient on nasal cannula requiring 6 L of oxygen, patient also has elevated tropes patient seen by counseling psychologist did not suspect acute coronary syndrome or rupture of the plaque rather type 2 myocardial infarction secondary to hypoxia. patient remains clinically stable will have PT OT evaluate the patient and further recommendation to follow. 11/01/2021 Interval history: morbidly obese female with BMI of 65 presented with shortness of breath secondary to multifactorial congestive heart failure being treated with Lasix IV, COPD being treated steroid and bronchodilator, hypoventilation due to morbid obesity, and history of chronic respiratory failure on 2 L nasal cannula, patient was placed BiPAP briefly, patient clinical symptoms have improved, currently patient on nasal cannula was requiring 6 L of oxygen, and today requiring 5L will wean patient off high flow oxygen, patient also has elevated tropes patient seen by counseling psychologist did not suspect acute coronary syndrome or rupture of the plaque rather type 2 myocardial infarction secondary to hypoxia. patient remains clinically stable, patient was seen PT OT to evaluate, the patient is bed bound and at her baseline for ADL, and further recommendation to follow. family present in the room and gave updates, (2) Acute exacerbation of congestive heart failure: Code(s): I50.9 - Heart failure, unspecified Status: Acute Assessment and Plan: Type unknown, echocardiogram pending. History seems consistent with flash pulmonary edema. Continue IV diuresis with Lasix 40 mg b.i.d. with close monitoring of I/O, daily weights, and renal function. (3) Acute non-ST elevation myocardial infarction (NSTEMI): Code(s): I21.4 - Non-ST elevation (NSTEMI) myocardial infarction Status: Acute Assessment and Plan: She is not having any chest pain whatsoever. EKG was reviewed and shows some nonspecific T-wave changes and evidence of LVH. Likely these are elevated in the setting of hypertensive urgency, hypoxia, and congestive heart failure. She was started on enoxaparin 1 milligram/kilogram b.i.d. in the emergency department and we will continue with that for now. Echocardiogram has been ordered for further evaluation. Dr. Winkler was consulted by the ED physician and his input is appreciated. (4) Asthma-COPD overlap syndrome: Code(s): J44.9 - Chronic obstructive pulmonary disease, unspecified Status: Acute Assessment and Plan: Probable mild COPD exacerbation. She was given magnesium and Solu-Medrol in the emergency department. Continue scheduled updrafts at this time. Will start a short course of prednisone tomorrow morning. No indication f
--- NOTE | 2021-11-01 15:59 | ECHO_ITS ---
Patient Info Name: Mirela Preston Age: 51 years : 1970 Gender: Female Ht: 60 in Wt: 338 lbs BSA: 2.67 m2 HR: 90 bpm BP: 155 / 89 mmHg Heart Rhythm: Sinus Rhythm Exam Date: 11/01/2021 9:57 AM Exam Location: [facility] Patient Status: Inpatient Admit Date: 10/30/2021 Staff Ordering Physician: Julita Rosas PA-C [employer] Specialist: Juan Francisco Prasad RDCS, RT Attending Provider: April Maurice DO Exam Type: CA echo dop color flow w con Study Info Complete two-dimensional, color flow and Doppler transthoracic echocardiogram is performed with contrast to opacify the left ventricle and to improve the deliniation of the left ventricle endocardial borders. Summary 1. Technically difficult examination requiring definity contrast injection to visualize the heart. 2. Left ventricular hypertrophy with moderate left ventricular dilation and significant systolic dysfunction. 3. Mild right ventricular enlargement. 4. Biatrial dilation. 5. Trivial amount of mitral regurgitation. Left Ventricle Left ventricular chamber dimension is moderately enlarged. Left ventricular systolic function is severely reduced, estimated at 25-30%. There is moderate concentric increased left ventricular wall thickness. The left ventricular diastolic function is grade I diastolic dysfunction. Right Ventricle Right ventricular chamber dimension is mildly enlarged. Left Atria Left atrial chamber dimension is moderately enlarged. Right Atria Right atrial chamber dimension is mildly enlarged. Aortic Valve The aortic valve is normal. Pulmonic Valve The pulmonic valve is not well visualized. Mitral Valve The mitral valve has normal leaflets. There is trace mitral valve regurgitation. Tricuspid Valve The tricuspid valve leaflets are not well visualized. There is mild tricuspid valve regurgitation. Pericardium/Pleural The pericardium appears normal. Aorta The aortic root size at the sinus of Valsalva is normal. Left Ventricular Outflow Tract Name Value Normal LVOT 2D LVOT Diameter 2.23 cm LVOT Doppler LVOT Peak Gradient 2 mmHg LVOT Mean Gradient 1 mmHg LVOT VTI 10.31 cm LVOT VTI/AV VTI Ratio 0.49 LVOT Stroke Volume 40.12 ml LVOT CO 3.68 l/min LVOT CI 1.38 L/min/m2 Mitral Valve Name Value Normal MV Doppler MV Peak Gradient 1 mmHg MV Mean Gradient 0 mmHg MV Decel Duval 514.17 cm/s2 MV PHT 0 s MV Area (PHT) 4.11 cm2 4.00-5.00 MV Area (Cont Eq VTI) 5.36 cm2 MV Regurgitation Doppler
[2021-11-01] MEDS: ACETAMINOPHEN 325 MG TABLET PO (20:41)
[2021-11-01] MEDS: ATORVASTATIN 40 MG TABLET 80 MG PO (20:43)
[2021-11-01] MEDS: NIFEdipine 30 MG TAB.ER.24 60 MG PO (20:45)
[2021-11-01] MEDS: HYDROcodone/acetaminophen (*CRX) 5-325 MG TABLET 1 TAB PO (22:03)
[2021-11-02 05:00] VITALS: BP 162/74; PULSE 102; RESP 20; TEMP 36.6; O2SAT 94
[2021-11-02] MEDS: hydroCHLOROthiazide 12.5 MG CAPSULE PO (09:25)
[2021-11-02] MEDS: ASPIRIN 81 MG CHEWABLE TABLET PO (09:26)
[2021-11-02] MEDS: ISOSORBIDE MONONITRATE 30 MG TAB.ER.24H PO (09:26)
[2021-11-02] MEDS: FERROUS SULFATE 324 MG TABLET PO (09:27)
[2021-11-02] MEDS: ESCITALOPRAM OXALATE 10 MG TABLET PO (09:28)
[2021-11-02] MEDS: predniSONE 20 MG TABLET 40 MG PO (09:28)
[2021-11-02] MEDS: SPIRONOLACTONE 25 MG TABLET PO (09:29)
[2021-11-02] MEDS: POTASSIUM CHLORIDE 10 MEQ TABLET.ER PO (09:29)
[2021-11-02 09:30] VITALS: PULSE 92
[2021-11-02] MEDS: cloNIDine HCL 0.2 MG TABLET PO ×2 (09:30→12:14)
[2021-11-02] MEDS: LABETALOL HCL 100 MG TABLET 200 MG PO (09:30)
[2021-11-02] MEDS: LOSARTAN POTASSIUM 100 MG TABLET PO (09:33)
--- NOTE | 2021-11-02 09:34 | PM.PNCARD ---
Progress Note: A&P Assessment and Plan (1) Acute exacerbation of congestive heart failure: Code(s): I50.9 - Heart failure, unspecified Status: Acute Assessment and Plan: Presented with hypoxia and signs of CHF. She has been diuresed and has improved. Now on room air. Resume home dose of furosemide. Plan per hospitalist is for discharge today. (2) Elevated troponin: Code(s): R77.8 - Other specified abnormalities of plasma proteins Status: Acute Assessment and Plan: Elevated but essentially flat. EKG showing sinus tachycardia with incomplete left bundle branch block. She is not capable of giving any history of chest pain but does deny chest pain today when asked. Probably related to hypoxia and hytertension. No plans to pursue an ischemic evaluation at this point. Subjective Date/time seen: 11/02/21 09:34 Cardiology follow up for CHF, elevated troponin No major changes. She states she is feeling better. No chest pain or shortness of breath. Review of Systems Review of Systems: ROS unobtainable: Yes unobtainable due to mental status Exam Const: General: no acute distress Nutritional Appearance: obese Other: Lying in bed sitting upright. HENMT: Mouth: Yes moist mucous membranes Eyes: Sclera: sclerae normal Neck: Neck: supple Other: Carotid pulses are intact. Impossible to assess venous distention given her body habitus. Resp: Auscultation: rhonchi (anteriorally. Unable to assess posterior lung daniels ) Cardio: Rate: regular rate Rhythm: regular rhythm Heart sounds: no murmurs GI: Auscultation: normal bowel sounds Skin: General skin exam: normal color Neuro: Cognition (Neuro): abnormal cognition Other: Patient is alert and responsive but otherwise not able to provide history Extrem: Right lower extremity: lower leg (AKA ) Other: Status post right AKA. No significant edema on the left leg reduced pulses in the left foot Psych: Mental Status: mental status grossly abnormal Objective Data Vital Signs Vital Signs: Vital Signs - 24 hr 11/01/21 10:00 11/01/21 12:00 11/01/21 12:00 Temperature Pulse Rate 94 88 Respiratory Rate Blood Pressure Pulse Oximetry 95 Oxygen Delivery High Flow Nasal Cannula Oxygen Flow Rate 2 Fraction of Inspired Oxygen 11/01/21 12:00 11/01/21 14:00 11/01/21 14:57 Temperature 36.9 C Pulse Rate 88 87 Respiratory Rate 22 H Blood Pressure 127/63 Pulse Oximetry 98 99 Oxygen Delivery High Flow Nasal Cannula Oxygen Flow Rate 5 Fraction of Inspired Oxygen 11/01/21 16:00 11/01/21 17:01 11/01/21 20:00 Temperature 37.0 C 36.6 C Pulse Rate 89 97 Respiratory Rate 24 H 20 Blood Pressure 151/81 H 160/90 H Pulse Oximetry 96 93 91 Oxygen Delivery Room Air Oxygen Flow Rate Fraction of Inspired Oxygen 11/01/21 20:44 11/01/21 20:00 11/01/21 21:21 Temperature Pulse Rate 88 88 81 Respiratory Rate 20 22 H Blood Pressure Pulse Oximetry 96 Oxygen Delivery Nasal Cannula Oxygen Flow Rate 2 Fraction of Inspired Oxygen 11/01/21 21:27 11/01/21 21:28 11/01/21 21:53 Temperature Pulse Rate 81 83 88 Respiratory Rate 18 Blood Pressure 173/68 H Pulse Oximetry 96 99 Oxygen Delivery High Flow Nasal Cannula Oxygen Flow Rate 2 Fraction of Inspired Oxygen 11/01/21 22:45 11/01/21 23:45 11/02/21 04:54 Temperature Pulse Rate Respiratory Rate Blood Pressure Pulse Oximetry 93 93 Oxygen Delivery Room Air Room Air Oxygen Flow Rate Fraction of Inspired Oxygen 11/01/21 22:45 11/02/21 05:00 Temperature 36.6 C Pulse Rate 102 H Respiratory Rate 20 Blood Pressure 162/74 H Pulse Oximetry 94 94 Oxygen Delivery Oxygen Flow Rate Fraction of Inspired Oxygen 21 Intake/Output Intake/Output: Intake & Output 10/30/21 10/31/21 11/01/21 11/02/21 23:59 23:59 23:59 23:59 Intake Total 1830 1780 1480 150 Outp
[2021-11-02] MEDS: FUROSEMIDE INJ 40 MG/4 ML VIAL IV PUSH (09:36)
[2021-11-02] MEDS: ENOXAPARIN 40 MG/0.4 ML SYRINGE SUB-Q (11:16)
[2021-11-02 11:41] LABS: EDCOVIDSCREEN Negative (Negative)
[2021-11-02 12:00] VITALS: BP 186/92; PULSE 85; RESP 20; TEMP 37; O2SAT 99
--- NOTE | 2021-11-02 12:19 | PM.DS ---
DS: Admitting Diagnosis Discharge Date 11/02/2021 Admitting Diagnosis shortness of breath DS: Discharge Diagnosis Discharge Diagnosis (1) Acute and chronic respiratory failure: Code(s): J96.20 - Acute and chronic respiratory failure, unspecified whether with hypoxia or hypercapnia Status: Acute Assessment and Plan: Patient's SpO2 was reportedly 70% on room air on EMS arrival this morning. She was placed on CPAP, subsequent BiPAP, and she is now on high-flow nasal cannula. She is awake, alert, and oriented and has just finished her lunch. Hypoxia today is likely due to pulmonary edema in addition to mild COPD exacerbation. Pneumonia seems unlikely. Continue to wean oxygen as tolerated. I suspect that she has chronic respiratory failure related to her asthma/COPD overlap syndrome and probable underlying obstructive sleep apnea and obesity hypoventilation syndrome. Apnea link ordered for tonight. 10/31/2021 Interval history: morbidly obese female with BMI of 65 presented with shortness of breath secondary to multifactorial congestive heart failure being treated with Lasix IV, COPD being treated steroid and bronchodilator, hypoventilation due to morbid obesity, and history of chronic respiratory failure on 2 L nasal cannula, patient was placed BiPAP briefly, patient clinical symptoms have improved, currently patient on nasal cannula requiring 6 L of oxygen, patient also has elevated tropes patient seen by catalyst recovery operator did not suspect acute coronary syndrome or rupture of the plaque rather type 2 myocardial infarction secondary to hypoxia. patient remains clinically stable will have PT OT evaluate the patient and further recommendation to follow. 11/01/2021 Interval history: morbidly obese female with BMI of 65 presented with shortness of breath secondary to multifactorial congestive heart failure being treated with Lasix IV, COPD being treated steroid and bronchodilator, hypoventilation due to morbid obesity, and history of chronic respiratory failure on 2 L nasal cannula, patient was placed BiPAP briefly, patient clinical symptoms have improved, currently patient on nasal cannula was requiring 6 L of oxygen, and today requiring 5L will wean patient off high flow oxygen, patient also has elevated tropes patient seen by catalyst recovery operator did not suspect acute coronary syndrome or rupture of the plaque rather type 2 myocardial infarction secondary to hypoxia. patient remains clinically stable, patient was seen PT OT to evaluate, the patient is bed bound and at her baseline for ADL, and further recommendation to follow. family present in the room and gave updates, (2) Acute exacerbation of congestive heart failure: Code(s): I50.9 - Heart failure, unspecified Status: Acute Assessment and Plan: Type unknown, echocardiogram pending. History seems consistent with flash pulmonary edema. Continue IV diuresis with Lasix 40 mg b.i.d. with close monitoring of I/O, daily weights, and renal function. (3) Acute non-ST elevation myocardial infarction (NSTEMI): Code(s): I21.4 - Non-ST elevation (NSTEMI) myocardial infarction Status: Acute Assessment and Plan: She is not having any chest pain whatsoever. EKG was reviewed and shows some nonspecific T-wave changes and evidence of LVH. Likely these are elevated in the setting of hypertensive urgency, hypoxia, and congestive heart failure. She was started on enoxaparin 1 milligram/kilogram b.i.d. in the emergency department and we will continue with that for now. Echocardiogram has been ordered for further evaluation. Dr. Winkler was consulted by the ED physician and his input is appreciated. (4) Asthma-COPD overlap syndrome: Code(s): J44.9 - Chronic obstructive pulmonary disease, unspecified Status: Acute Assessment and Plan: Probable mild COPD exacerbation. She was given magnesium and Solu-Medrol in the emergency department. Continue sched
[2021-11-02] MEDS: ALBUTEROL SULFATE NEB 2.5 MG/3 ML INH 5 MG INHALATION (14:05)
[2021-11-02 14:06] VITALS: PULSE 90; RESP 12
== END 2021-11-02 14:30 | DRG 194 ==
LOC: ANHED 10:35 → ANHIMU 11:57
PROVIDERS: Emergency Medicine; Physician Assistant; Admitting Provider Student in an Organized Health Care Education/Training Program; Emergency Provider Emergency Medicine; PCP Internal Medicine; Visit Provider Family Medicine
DX: I13.0 Hypertensive heart and chronic kidney disease with heart failure and stage 1 through stage 4 chronic kidney disease, or unspecified chronic kidney disease (principal); I50.23 Acute on chronic systolic (congestive) heart failure; N18.9 Chronic kidney disease, unspecified; I16.0 Hypertensive urgency; Z87.891 Personal history of nicotine dependence; E78.5 Hyperlipidemia, unspecified; K21.9 Gastro-esophageal reflux disease without esophagitis; E55.9 Vitamin D deficiency, unspecified; Z86.73 Personal history of transient ischemic attack (TIA), and cerebral infarction without residual deficits; Z79.899 Other long term (current) drug therapy; R77.8 Other specified abnormalities of plasma proteins; Z82.49 Family history of ischemic heart disease and other diseases of the circulatory system; Z79.82 Long term (current) use of aspirin; E66.01 Morbid (severe) obesity due to excess calories; Z68.44 Body mass index [BMI] 60.0-69.9, adult; J44.1 Chronic obstructive pulmonary disease with (acute) exacerbation; I21.A1 Myocardial infarction type 2; J96.21 Acute and chronic respiratory failure with hypoxia
CPT/HCPCS: 36415; 36600; 51702; 71045; 80048; 80053; 80185; 81001; 82805; 82948; 83036; 83605; 83735; 83880; 84443; 84484; 85025; 85027; 85610; 85730; 87040; 87426; 87502; 92610; 93005; 94002; 94003; 94640; 94762; 96361; 96365; 96367; 96372; 96375; 99285; A9270; C8929; C9803; G0379; J0360; J0456; J0696; J1650; J1940; J2930; J3475; J7040; J7512; Q9957; U0003; U0005

== ENCOUNTER 2021-11-22 15:07 | Inpatient (IN) | payer BC, SELFPAY ==
[2021-11-22] VITALS (78 sets, daily range): BP systolic 141–206; BP diastolic 83–143; PULSE 89–115; RESP 11–42; TEMP 36.6–38.4; O2SAT 95–100
--- NOTE | ~2021-11-22 | XR_ITS ---
EXAMINATION: XR chest 2V DATE: 11/26/2021 15:25 INDICATION: Shortness of breath. TECHNIQUE: Frontal and lateral views of the chest were obtained. COMPARISON: Chest single view 11/24/2021 FINDINGS: Sensitivity is decreased by obesity. There are airspace opacities in left lower lobe. There is elevation of right hemidiaphragm. No pleural effusion or pneumothorax. Cardiomegaly is noted. IMPRESSION: 1. Left lower lobe airspace opacities, consistent with atelectasis versus pneumonia. 2. Persistent elevation of right hemidiaphragm. 3. Cardiomegaly. Reviewed, dictated and finalized at location A. IMPRESSION: 1. Left lower lobe airspace opacities, consistent with atelectasis versus pneum onia. 2. Persistent elevation of right hemidiaphragm. 3. Cardiomegaly.
--- NOTE | ~2021-11-22 | XR_ITS ---
EXAMINATION: XR chest 1V portable DATE: 11/24/2021 06:08 INDICATION: Congestive heart failure TECHNIQUE: frontal view of the chest was obtained. COMPARISON: Chest radiograph dated 11/22/2021 FINDINGS: Similar extent but significant decrease in density of diffuse bilateral airspace opacities relatively sparing the apices. No pneumothorax or definitive pleural effusion. Cardiomegaly. IMPRESSION: 1. Decrease in diffuse bilateral lung disease which given the relatively short interval would favor c ongestive heart failure and pulmonary edema over pneumonia. 2. Cardiomegaly. Reviewed, dictated and finalized at location A. IMPRESSION: 1. Decrease in diffuse bilateral lung disease which given the relatively short interval would favor congestive heart failure and pulmonary edema over pneumoni a. 2. Cardiomegaly.
--- NOTE | ~2021-11-22 | XR_ITS ---
EXAMINATION: XR chest 1V portable Exam Date/Time: 11/22/2021 15:55 CDT HISTORY: SOB. HX HTN, CHF, COPD Comparison: 10/30/2021. RESULT: Lines, tubes, and devices: None. Lungs and pleura: Diffuse patchy bilateral airspace disease, more pronounced on the right. Cardiomediastinal silhouette: Stable cardiomegaly. Other: No acute osseous or upper abdominal finding. IMPRESSION: Findings likely reflect heart failure. Pulmonary infection not excluded. Reviewed, dictated and finalized at location K.
--- NOTE | ~2021-11-22 | US_ITS ---
US abdomen limited INDICATION: Elevated liver function tests. PROCEDURE: Realtime right upper abdominal ultrasound. COMPARISON: No prior studies for comparison. FINDINGS: The pancreas is normal without focal mass or pancreatic ductal dilation. Liver echotexture is normal without focal mass or intrahepatic biliary dilatation. There is normal directional flow i n the portal vein. There are gallstones. Gallbladder is contracted. Common bile duct measures 3.5 mm. No sonographic M urphy's sign. IMPRESSION: 1: Cholelithiasis. Reviewed, dictated and finalized at location A. IMPRESSION: 1: Cholelithiasis.
--- NOTE | 2021-11-22 15:11 | ECG_ITS ---
Measurements Intervals [place] [facility] Rate: 116 P: 57 WY: 162 QRS: -15 QRSD: 126 T: 116 QT: 342 QTc: 476 Interpretive Statements SINUS TACHYCARDIA LEFT ATRIAL ENLARGEMENT INCOMPLETE LEFT BUNDLE BRANCH BLOCK BORDERLINE R WAVE PROGRESSION, ANTERIOR LEADS LEFT VENTRICULAR HYPERTROPHY AND ST-T CHANGE ABNORMAL ECG Electronically Signed On 11-22-2021 18:48:43 CDT by Yasir Thomas D.O.
--- NOTE | 2021-11-22 15:28 | ED.SOB ---
HPI - SOB/Dyspnea General Chief Complaint: Shortness of Breath/Dyspnea Stated Complaint: resp distress Time Seen by Provider: 11/22/21 15:20 Source: patient and EMS Mode of arrival: EMS Limitations: no limitations History of Present Illness HPI Narrative: 51 years old -[place] female, morbidly obese brought to the emergency room by ambulance from shelter because of audible wheezing started around 2 PM today basically 1-1/2-hour prior to arrival to the emergency room. Patient vomited once this morning at 8:30 AM after eating. Did not show any respiratory symptoms at that time. Patient was in our emergency room 2 to 3 weeks ago with a similar symptom and diagnosis of CHF and COPD. Patient on chronic 2 L oxygen by nasal cannula, full code. Related Data Home Medications Medication Instructions Recorded Confirmed acetaminophen 325 mg tablet 325 mg PO Q6H PRN Pain (Scale 08/26/21 10/30/21 (Tylenol) Score 1-3) aspirin 81 mg chewable tablet 81 mg PO DAILY 08/26/21 10/30/21 (Aspirin Childrens) atorvastatin 80 mg tablet (Lipitor) 80 mg PO HS 08/26/21 10/30/21 benzonatate 200 mg capsule 200 mg PO TID PRN Cough 08/26/21 10/30/21 calcium carb-vit D3-minerals 600 2 tablet PO DAILY 08/26/21 10/30/21 mg calcium-400 unit tablet clonidine HCl 0.2 mg tablet 0.2 mg PO TID 08/26/21 10/30/21 ergocalciferol (vitamin D2) 1,250 50,000 unit PO WEEKLY 08/26/21 10/30/21 mcg (50,000 unit) capsule (Vitamin D2) ferrous sulfate 325 mg (65 mg 325 mg PO EVERY OTHER DAY 08/26/21 10/30/21 iron) tablet furosemide 40 mg tablet (Lasix) 40 mg PO DAILY 08/26/21 10/30/21 ipratropium 0.5 mg-albuterol 3 mg 0.5 mg inhalation BID PRN 08/26/21 10/30/21 (2.5 mg base)/3 mL nebulization Shortness Of Breath Or Wheezing soln isosorbide mononitrate 30 mg 30 mg PO DAILY 08/26/21 10/30/21 tablet,extended release 24 hr labetalol 200 mg tablet 200 mg PO Q12H 08/26/21 10/30/21 losartan 100 1 tablet PO DAILY 08/26/21 10/30/21 mg-hydrochlorothiazide 12.5 mg tablet nifedipine 60 mg tablet,extended 60 mg PO HS 08/26/21 10/30/21 release phenytoin 100 mg/4 mL oral 200 mg PO DAILY 08/26/21 10/30/21 suspension escitalopram oxalate 10 mg tablet 1 tablet PO DAILY 10/30/21 10/30/21 phenytoin 100 mg/4 mL oral 200 mg PO QPM 10/30/21 10/30/21 suspension potassium chloride 10 mEq 10 meq PO DAILY 10/30/21 10/30/21 capsule,extended release spironolactone 25 mg tablet 1 tablet PO DAILY 10/30/21 10/30/21 Allergies Allergy/AdvReac Type Severity Reaction Status Date / Time No Known Allergies Allergy Verified 11/22/21 16:08 Review of Systems Review of Systems: All systems reviewed & are unremarkable except as noted in HPI and below PMFSH Past Medical History Medical History Asthma-COPD overlap syndrome Cerebrovascular accident Congestive heart failure Gastroesophageal reflux disease Hyperlipidemia Hypertension Intellectual disability Iron deficiency anemia Vitamin D deficiency Surgical History Surgical History History of right above knee amputation Family History Family History Father Congestive heart failure Hypertension Mother Congestive heart failure Hypertension Social History Social History Social History: Surrogate decision maker: Laxmi Marrero, aunt. Code status: Full code. Smoking packs per day: 1 Smoking cigarettes per day: 20.0 Years smoked: 20 Smoking pack-years: 20.00 Smoking status: Former smoker Alcohol intake: never Substance use: never Additional living arrangements comments: Resident at [facility]. Additional occupation/education comments: Disabled. Spiritual care concerns: No Exam Narrative: General appearance: Well-developed, well-jose
[2021-11-22 15:32] LABS: Basophils Absolute Auto 0.1 K/mm3 (0.0-0.1); Basophils Percent Auto 0.5 % (0.2-1.2); Eosinophils Absolute Auto 0.1 K/mm3 (0-0.3); Eosinophils Percent Auto 0.5 % (0-4.4); Hematocrit 36.1 % (37.0-47.0); Hemoglobin 10.5 g/dL (12.0-15.0); Immature Granulocyte Absolute 0.08 K/mm3 (0.00-0.031); Immature Granulocyte Percent A 0.6 % (0-0.5); Lymphocytes Absolute Auto 2.52 K/mm3 (0.9-3.2); Mean Corpuscular HGB Conc 29.1 g/dl (32-36); Mean Corpuscular Hemoglobin 27.2 pg (26-34); Mean Corpuscular Volume 93.5 fl (80-100); Monocytes Absolute Auto 1.1 K/mm3 (0.1-0.6); Monocytes Percent Auto 8.1 % (2.6-8.5); Neutrophils Absolute Auto 9.5 K/mm3 (1.3-6.7); Neutrophils Percent Auto 71.3 % (45.5-73.1); Nucleated Red Blood Cells Perc 0.3 % (0.0-0.2); Platelet Count Result 251 k/mm3 (150-375); Red Blood Count 3.86 M/mm3 (4.2-5.4); Red Cell Distribution Width 17.8 % (11.5-14.5); White Blood Count 13.3 K/mm3 (4.5-10.0)
[2021-11-22 15:33] LABS: Alveolar/Arterial O2 Gradient 155.6 mmHg; Base Excess ABG 4.2 mEq/l (+/-2.0); Fractional Inspired Oxygen 40 %; HCO3 ABG 28.7 mEq/l (22.0-26.0); Oxygen Content ABG 15.3 %vol (16.0-22.0); Oxygen Saturation ABG 96.2 % (95.0-100.0); Oxyhemoglobin 94.1 % THb (90.0-100.0); PCO2 ABG 42.9 mmHg (35.0-45.0); PO2 ABG 80.3 mmHg (80.0-100.0); PO2 FiO2 Ratio Arterial Blood 2.01 %; Total Hemoglobin 11.5 g/dL (12.0-18.0); pH ABG 7.444 (7.350-7.450)
[2021-11-22 15:34] LABS: Device NON-INVASIVE VENT; Modified Allen's Test Pass; Site Drawn RIGHT RADIAL
[2021-11-22 15:35] LABS: Non-Invasive Expiratory Pressure 6 CMH2O; Non-Invasive Inspiratory Pressure 12 CMH2O; Non-Invasive Vent Rate 16 /MIN
[2021-11-22 15:41] LABS: Lactic Acid Reflex 1.1 mmol/L (0.7-2.0)
[2021-11-22 15:43] LABS: Alanine Aminotransferase 36 U/L (6-35); Albumin Level 4.2 g/dL (3.5-5.1); Alkaline Phosphatase 136 U/L (38-126); Anion Gap 6 mmol/L (8-16); Aspartate Amino Transferase 47 U/L (14-36); Bilirubin,Total 0.4 mg/dL (0.2-1.3); Blood Urea Nitrogen 33 mg/dL (7-17); Calcium 8.7 mg/dL (8.4-10.2); Carbon Dioxide 28 mmol/L (22-30); Chloride 111 mmol/L (98-107); Estimated CRCL calculation 51 ml/min; Estimated Glomerular Filt Rate 36; Glucose 120 mg/dL (65-110); Potassium 4.2 mmol/L (3.4-5.0); Sodium 145 mmol/L (137-145)
[2021-11-22 15:46] LABS: Anisocytosis 1+ (NORMAL); Hypochromasia 1+ (NORMAL); Platelet Estimate Adequate (Adequate)
[2021-11-22 15:47] LABS: INR 1.3; Prothrombin Time 15.2 Seconds (11.1-14.7)
[2021-11-22 15:48] LABS: Partial Thromboplastin Time 30.8 SECONDS (22.3-36.8)
[2021-11-22 16:03] LABS: NT Pro B Type Natriuretic Pept 14500 pg/mL (5-100)
[2021-11-22] MEDS: FUROSEMIDE INJ 100 MG/10 ML VIAL 80 MG IV PUSH (16:44)
[2021-11-22] MEDS: NITROGLYCERIN OINTMENT 1 INCH DOSE TRANSDERM ×2 (16:45→17:54)
[2021-11-22] MEDS: FUROSEMIDE INJ 40 MG/4 ML VIAL IV PUSH (17:54)
--- NOTE | 2021-11-22 19:15 | PM.IMHP ---
H&P: HPI History of Present Illness Date/Time: 11/22/21 19:15 <Julita Rosas PA-C - Last Filed: 11/22/21 23:58> Chief Complaint: Shortness of breath. <Julita Rosas PA-C - Last Filed: 11/22/21 23:58> Narrative: This is a 51-year-old female with history of stroke, hypertension, diabetes, chronic kidney disease, anemia, congestive heart failure, asthma/COPD overlap, and chronic respiratory failure on 2 L nasal cannula who presented to the emergency department via EMS from [facility] for evaluation of shortness of breath. At the time my evaluation she is on BiPAP and has difficulties communicating through the mask and as such some of the following is obtained via a review of her electronic medical records. She is known to myself and the hospitalist service from an admission on 10/30/2021 in which she was treated for acute respiratory failure related to congestive heart failure exacerbation from suspected flash pulmonary edema after presenting with similar symptoms. She apparently was in her usual state of health when she woke this morning and she had breakfast though had 1 episode of emesis thereafter. According to staff at her facility, there were no concerns for aspiration at that time. When staff members were getting her ready for lunch, they noticed that she seemed to be short of breath and she had audible wheezing. She seem to be in quite a bit of respiratory distress on arrival to the ER and she was immediately started on BiPAP though her ABG looked pretty good. Her proBNP was markedly elevated, twice that of what it was last month when she was admitted to the hospital, and her blood pressures have been as high as 206/132. Chest x-ray today showed findings consistent with congestive heart failure and she is being admitted in this setting. At the time my evaluation she is resting comfortably on the BiPAP and does not appear in distress. She denies recent cold and flu symptoms, chest pain, pleuritic pain, abdominal pain, and current nausea. <Julita Rosas PA-C - Last Filed: 11/22/21 23:58> Review of Systems Review of Systems: Review of systems was attempted but is quite limited as she is having difficulties speaking through the BiPAP mask. She did deny those things as listed in HPI. Some question she did not answer. <Julita Rosas PA-C - Last Filed: 11/22/21 23:58> [facility] Past Medical History Medical History: Medical History (Updated 11/27/21 @ 13:04 by Pete Gould DO) Asthma-COPD overlap syndrome Cerebrovascular accident Congestive heart failure Echocardiogram in October 2021 showed left ventricular hypertrophy with moderate left ventricular dilation and significant systolic dysfunction with an EF estimated 25 to 30%, grade 1 diastolic dysfunction, and mild right ventricular enlargement with biatrial dilation. Gastroesophageal reflux disease Hyperlipidemia Hypertension Intellectual disability Iron deficiency anemia Vitamin D deficiency <Julita Rosas PA-C - Last Filed: 11/22/21 23:58> Surgical History Surgical History: Surgical History History of right above knee amputation <Julita Rosas PA-C - Last Filed: 11/22/21 23:58> Family History Family History: Family History Father Congestive heart failure Hypertension Mother Congestive heart failure Hypertension <Julita Rosas PA-C - Last Filed: 11/22/21 23:58> Social History Social History: Social History Social History: Surrogate decision maker: Laxmi Marrero, aunt. Code status: Full code. Smoking packs per day: 1 Smoking cigarettes per day: 20.0 Years smoked: 20 Smoking pack-years: 20.00 Smoking status: Former smoker Alcohol intake: unknown Substance use: unknown Substance use type:
[2021-11-22 19:19] LABS: SARS-CoV-2 RNA PCR Negative
[2021-11-22 20:45] LABS: Alveolar/Arterial O2 Gradient 83.5 mmHg; Base Excess ABG 3.4 mEq/l (+/-2.0); Fractional Inspired Oxygen 32 %; HCO3 ABG 28.2 mEq/l (22.0-26.0); Oxygen Content ABG 15.3 %vol (16.0-22.0); Oxygen Saturation ABG 97.3 % (95.0-100.0); Oxyhemoglobin 95.3 % THb (90.0-100.0); PCO2 ABG 43.8 mmHg (35.0-45.0); PO2 ABG 93.4 mmHg (80.0-100.0); PO2 FiO2 Ratio Arterial Blood 2.92 %; Total Hemoglobin 11.3 g/dL (12.0-18.0); pH ABG 7.427 (7.350-7.450)
[2021-11-22 20:46] LABS: Modified Allen's Test Pass; Site Drawn RIGHT RADIAL
[2021-11-22 20:47] LABS: Device NON-INVASIVE VENT; Non-Invasive Expiratory Pressure 6 CMH2O; Non-Invasive Inspiratory Pressure 12 CMH2O; Non-Invasive Vent Rate 18 /MIN
--- NOTE | 2021-11-22 23:21 | ADMGEN ---
This patient, Mirela Preston, was admitted to IMU Room 203-01. Patient/family oriented to hospital policies and general routines including ID bracelet, bed and alarms, visiting hours, pain management, procedures, bathroom and other care routines, personal items, smoking policy, room service/diet, and visiting hours. Information on how to activate the Rapid Response Team has been discussed. Patient/Family are encouraged to report perceived risks to care and to ask questions if they do not understand what they are told or what they should do.
[2021-11-23] VITALS (19 sets, daily range): BP systolic 103–146; BP diastolic 55–84; PULSE 73–105; RESP 19–42; TEMP 36.2–36.7; O2SAT 92–100; BMI 53.8
[2021-11-23 01:21] LABS: Troponin I 0.947 ng/mL (0.000-0.034)
[2021-11-23] MEDS: NITROGLYCERIN OINTMENT 1 INCH DOSE TRANSDERM ×3 (01:57→17:03)
[2021-11-23 03:12] LABS: Appearance Urine Clear (Clear); Bilirubin Urine Negative (Negative); Blood Urine 2+ (Negative); Color Urine Yellow (Yellow); Glucose Urine UA Negative (Negative); Ketones Urine Negative (Negative); Leukocyte Esterase Ur Negative LEU/UL (Negative); Nitrate Urine Negative (Negative); Protein Urine 3+ mg/dL (Negative); Specific Grav Ur 1.025 (1.001-1.035); Urobilinogen Urine 0.2 mg/dL (<2.0)
[2021-11-23 03:17] LABS: Bacteria Urine Trace /hpf; Mucus Urine Rare /lpf; Squamous Epithelial Cell Urine Rare /hpf (Few); WBC Urine 0-3 /hpf
[2021-11-23 03:26] LABS: Add Urine Microscopic? YES
[2021-11-23 05:00] LABS: Basophils Absolute Auto 0.1 K/mm3 (0.0-0.1); Basophils Percent Auto 0.6 % (0.2-1.2); Eosinophils Absolute Auto 0.1 K/mm3 (0-0.3); Eosinophils Percent Auto 1.1 % (0-4.4); Hematocrit 32.2 % (37.0-47.0); Hemoglobin 9.4 g/dL (12.0-15.0); Immature Granulocyte Absolute 0.09 K/mm3 (0.00-0.031); Immature Granulocyte Percent A 0.8 % (0-0.5); Lymphocytes Absolute Auto 1.73 K/mm3 (0.9-3.2); Lymphocytes Percent Auto 16.1 % (18.3-44.2); Mean Corpuscular HGB Conc 29.2 g/dl (32-36); Mean Corpuscular Hemoglobin 26.7 pg (26-34); Mean Corpuscular Volume 91.5 fl (80-100); Mean Platelet Volume 11.2 fl (7.4-10.4); Monocytes Absolute Auto 0.9 K/mm3 (0.1-0.6); Monocytes Percent Auto 8.5 % (2.6-8.5); Neutrophils Absolute Auto 7.9 K/mm3 (1.3-6.7); Neutrophils Percent Auto 72.9 % (45.5-73.1); Platelet Count Result 198 k/mm3 (150-375); Red Blood Count 3.52 M/mm3 (4.2-5.4); Red Cell Distribution Width 17.5 % (11.5-14.5); White Blood Count 10.8 K/mm3 (4.5-10.0)
[2021-11-23 05:16] LABS: Alanine Aminotransferase 43 U/L (6-35); Albumin Level 3.8 g/dL (3.5-5.1); Alkaline Phosphatase 113 U/L (38-126); Anion Gap 6 mmol/L (8-16); Aspartate Amino Transferase 49 U/L (14-36); Bilirubin,Total 0.4 mg/dL (0.2-1.3); Blood Urea Nitrogen 39 mg/dL (7-17); CRP 7.4 mg/dL (<1.0); Calcium 8.2 mg/dL (8.4-10.2); Carbon Dioxide 30 mmol/L (22-30); Chloride 110 mmol/L (98-107); Estimated CRCL calculation 49 ml/min; Estimated Glomerular Filt Rate 34; Glucose 122 mg/dL (65-110); Potassium 3.7 mmol/L (3.4-5.0); Sodium 146 mmol/L (137-145)
[2021-11-23] MEDS: SPIRONOLACTONE 25 MG TABLET PO (09:10)
[2021-11-23] MEDS: ISOSORBIDE MONONITRATE 30 MG TAB.ER.24H PO (09:11)
[2021-11-23] MEDS: POTASSIUM CHLORIDE 10 MEQ TABLET.ER PO (09:11)
[2021-11-23] MEDS: LOSARTAN POTASSIUM 100 MG TABLET PO (09:11)
[2021-11-23] MEDS: hydroCHLOROthiazide 12.5 MG CAPSULE PO (09:11)
[2021-11-23] MEDS: cloNIDine HCL 0.2 MG TABLET PO ×3 (09:11→17:03)
[2021-11-23] MEDS: ESCITALOPRAM OXALATE 10 MG TABLET PO (09:11)
[2021-11-23] MEDS: ENOXAPARIN 40 MG/0.4 ML SYRINGE SUB-Q (09:11)
[2021-11-23] MEDS: ASPIRIN 81 MG CHEWABLE TABLET PO (09:11)
[2021-11-23] MEDS: LABETALOL HCL 100 MG TABLET 200 MG PO ×2 (09:11→21:11)
[2021-11-23] MEDS: FUROSEMIDE INJ 40 MG/4 ML VIAL IV PUSH ×2 (09:12→21:11)
[2021-11-23] MEDS: FERROUS SULFATE 324 MG TABLET PO (09:12)
--- NOTE | 2021-11-23 11:13 | PM.IMPN ---
Progress Note: A&P Assessment and Plan (1) Acute exacerbation of congestive heart failure: Code(s): I50.9 - Heart failure, unspecified Status: Acute Assessment and Plan: Acute on chronic systolic congestive heart failure exacerbation likely precipitated by flash pulmonary edema from hypertensive urgency. Continue furosemide IV for diuresis with Lasix 40 mg b.i.d. and BiPAP as needed. Nitroglycerin paste was placed in the ER. Continue spironolactone, beta-josé, and ARB. Continue to monitor urine output. She has a catheter in place Repeat chest x-ray in the morning (2) Elevated troponin: Code(s): R77.8 - Other specified abnormalities of plasma proteins Status: Acute Assessment and Plan: Troponins are once again elevated but have remained flat and trending downwards. She is denying chest pain at this time. Likely due [place] [id number] (3) Hypertensive urgency: Code(s): I16.0 - Hypertensive urgency Status: Acute Assessment and Plan: Blood pressures have improved significantly with nitropaste and furosemide. Continue antihypertensives and monitor closely. (4) Pulmonary infiltrates: Code(s): R91.8 - Other nonspecific abnormal finding of lung field Status: Acute Assessment and Plan: Most likely related to pulmonary edema. Due to elevated white blood cell count started on azithromycin and ceftriaxone for possible pneumonia which is continued. She also had a spike of fever 11/22/2021. Pancultured continue to follow cultures (5) Chronic kidney disease: Code(s): N18.9 - Chronic kidney disease, unspecified Status: Acute Assessment and Plan: Creatinine is stable on review of previous labs and will be monitored while diuresing. (6) Asthma-COPD overlap syndrome: Code(s): J44.9 - Chronic obstructive pulmonary disease, unspecified Status: Acute Assessment and Plan: No significant wheezing RA exacerbation Continue bronchodilators as ordered (7) Acute and chronic respiratory failure with hypoxia: Code(s): J96.21 - Acute and chronic respiratory failure with hypoxia Status: Acute Assessment and Plan: On home oxygen 2 L via nasal cannula. Acute Secondary to flash pulmonary edema. Continue BiPAP as needed, wean oxygen as tolerated. Will keep BiPAP p.r.n. for now Continue to monitor oxygen saturation Subjective Date/time seen: 11/23/21 11:13 Interval history: HPI:This is a 51-year-old female with history of stroke, hypertension, diabetes, chronic kidney disease, anemia, congestive heart failure, asthma/COPD overlap, and chronic respiratory failure on 2 L nasal cannula who presented to the emergency department via EMS from [facility] for evaluation of shortness of breath. At the time my evaluation she is on BiPAP and has difficulties communicating through the mask and as such some of the following is obtained via a review of her electronic medical records. She is known to myself and the hospitalist service from an admission on 10/30/2021 in which she was treated for acute respiratory failure related to congestive heart failure exacerbation from suspected flash pulmonary edema after presenting with similar symptoms. She apparently was in her usual state of health when she woke this morning and she had breakfast though had 1 episode of emesis thereafter. According to staff at her facility, there were no concerns for aspiration at that time. When staff members were getting her ready for lunch, they noticed that she seemed to be short of breath and she had audible wheezing. She seem to be in quite a bit of respiratory distress on arrival to the ER and she was immediately started on BiPAP though her ABG looked pretty good. Her proBNP was markedly elevated, twice that of what it was last month when she was admitted to the hospital, and her blood pressures have been as high
[2021-11-23] MEDS: NIFEdipine 30 MG TAB.ER.24 60 MG PO (21:11)
[2021-11-23] MEDS: ATORVASTATIN 40 MG TABLET 80 MG PO (21:11)
[2021-11-24] VITALS (20 sets, daily range): BP systolic 124–156; BP diastolic 62–87; PULSE 74–99; RESP 20–26; TEMP 36.1–36.8; O2SAT 20–100
[2021-11-24] MEDS: NITROGLYCERIN OINTMENT 1 INCH DOSE TRANSDERM ×2 (00:48→06:12)
[2021-11-24 05:11] LABS: Basophils Absolute Auto 0.1 K/mm3 (0.0-0.1); Basophils Percent Auto 0.5 % (0.2-1.2); Eosinophils Absolute Auto 0.4 K/mm3 (0-0.3); Eosinophils Percent Auto 4.3 % (0-4.4); Hematocrit 33.7 % (37.0-47.0); Hemoglobin 10.3 g/dL (12.0-15.0); Immature Granulocyte Absolute 0.06 K/mm3 (0.00-0.031); Immature Granulocyte Percent A 0.6 % (0-0.5); Lymphocytes Absolute Auto 2.13 K/mm3 (0.9-3.2); Lymphocytes Percent Auto 23.1 % (18.3-44.2); Mean Corpuscular HGB Conc 30.6 g/dl (32-36); Mean Corpuscular Volume 88.2 fl (80-100); Mean Platelet Volume 10.3 fl (7.4-10.4); Monocytes Absolute Auto 0.7 K/mm3 (0.1-0.6); Monocytes Percent Auto 7.7 % (2.6-8.5); Neutrophils Absolute Auto 5.9 K/mm3 (1.3-6.7); Neutrophils Percent Auto 63.8 % (45.5-73.1); Platelet Count Result 217 k/mm3 (150-375); Red Blood Count 3.82 M/mm3 (4.2-5.4); Red Cell Distribution Width 17.4 % (11.5-14.5); White Blood Count 9.2 K/mm3 (4.5-10.0)
[2021-11-24 05:30] LABS: Alanine Aminotransferase 88 U/L (6-35); Albumin Level 3.6 g/dL (3.5-5.1); Alkaline Phosphatase 111 U/L (38-126); Anion Gap 6 mmol/L (8-16); Aspartate Amino Transferase 67 U/L (14-36); Bilirubin,Total 0.4 mg/dL (0.2-1.3); Blood Urea Nitrogen 42 mg/dL (7-17); Calcium 8.5 mg/dL (8.4-10.2); Carbon Dioxide 32 mmol/L (22-30); Chloride 102 mmol/L (98-107); Estimated CRCL calculation 46 ml/min; Estimated Glomerular Filt Rate 32; Glucose 99 mg/dL (65-110); Magnesium 1.9 mg/dL (1.6-2.3); Potassium 3.6 mmol/L (3.4-5.0); Sodium 140 mmol/L (137-145)
--- NOTE | 2021-11-24 07:54 | PM.IMPN ---
Progress Note: A&P Assessment and Plan (1) Acute exacerbation of congestive heart failure: Code(s): I50.9 - Heart failure, unspecified Status: Acute Assessment and Plan: Acute on chronic systolic congestive heart failure exacerbation likely precipitated by flash pulmonary edema from hypertensive urgency. Continue furosemide IV for diuresis with Lasix 40 mg b.i.d. and BiPAP as needed. Nitroglycerin paste was placed in the ER. Continue spironolactone, beta-josé, and ARB. Continue to monitor urine output. She has a catheter in place 11/24: Repeat chest x-ray shows improvement, pneumonia less likely, will check procalcitonin, if this is negative, discontinue antibiotics and monitor symptoms off antibiotics, will consult Cardiology. Heart failure appears clinically improved in addition chest x-ray, however, creatinine, BUN as well as LFTs are elevated from yesterday suggesting hypoperfusion versus fluid congestion due to continued heart failure, will decrease diuresis dose today and reassess fluid status and symptoms tomorrow. (2) Elevated troponin: Code(s): R77.8 - Other specified abnormalities of plasma proteins Status: Acute Assessment and Plan: Troponins are once again elevated but have remained flat and trending downwards. She is denying chest pain at this time. Likely due [place] [address] 11/24: Consult cardiology, suspect elevated troponin secondary to heart failure exacerbation as opposed to NSTEMI, continue to monitor telemetry. Recheck troponin today. Will discontinue nitropaste today and assess symptoms. (3) Hypertensive urgency: Code(s): I16.0 - Hypertensive urgency Status: Acute Assessment and Plan: Blood pressures have improved significantly with nitropaste and furosemide. Continue antihypertensives and monitor closely. (4) Pulmonary infiltrates: Code(s): R91.8 - Other nonspecific abnormal finding of lung field Status: Acute Assessment and Plan: Most likely related to pulmonary edema. Due to elevated white blood cell count started on azithromycin and ceftriaxone for possible pneumonia which is continued. She also had a spike of fever 11/22/2021. Pancultured continue to follow cultures 11/24: Unsure if patient had pneumonia, chest x-ray improved rapidly as well as symptoms with diuresis, will check procalcitonin, Continue antibiotics for now since patient did have fevers although unsure if patient had pneumonia, Legionella and pneumococcal ab pending (5) Chronic kidney disease: Code(s): N18.9 - Chronic kidney disease, unspecified Status: Acute Assessment and Plan: Creatinine is stable on review of previous labs and will be monitored while diuresing. 11/24: Creatinine and BUN elevated a bit today, will decrease diuretic dose and recheck tomorrow (6) Asthma-COPD overlap syndrome: Code(s): J44.9 - Chronic obstructive pulmonary disease, unspecified Status: Acute Assessment and Plan: No significant wheezing Continue bronchodilators as ordered 11/24: Continue breathing treatments, no steroids were started, continue to monitor off steroids, suspect most of symptoms are secondary to heart failure exacerbation (7) Acute and chronic respiratory failure with hypoxia: Code(s): J96.21 - Acute and chronic respiratory failure with hypoxia Status: Acute Assessment and Plan: likely secondary to flash pulmonary edema upon admission, significantly improved, was able to be weaned off BiPAP during the day, still using nocturnally 11/24: will check ApneaLink tonight Subjective Date/time seen: 11/24/21 07:54 Interval history: Patient is sitting up watching TV, on 2 L nasal cannula. No complaints. No overnight events noted.? No chest pain or shortness of breath.? No nausea, vomiting or diarrhea.? No fevers or chills. Review of Systems Review of Systems:
[2021-11-24 08:56] LABS: Troponin I 0.342 ng/mL (0.000-0.034)
[2021-11-24] MEDS: POTASSIUM CHLORIDE 10 MEQ TABLET.ER PO (09:12)
[2021-11-24] MEDS: hydroCHLOROthiazide 12.5 MG CAPSULE PO (09:12)
[2021-11-24] MEDS: cloNIDine HCL 0.2 MG TABLET PO ×3 (09:12→17:38)
[2021-11-24] MEDS: ASPIRIN 81 MG CHEWABLE TABLET PO (09:12)
[2021-11-24] MEDS: ESCITALOPRAM OXALATE 10 MG TABLET PO (09:13)
[2021-11-24] MEDS: SPIRONOLACTONE 25 MG TABLET PO (09:13)
[2021-11-24] MEDS: LABETALOL HCL 100 MG TABLET 200 MG PO (09:13)
[2021-11-24] MEDS: ISOSORBIDE MONONITRATE 30 MG TAB.ER.24H PO (09:13)
[2021-11-24] MEDS: LOSARTAN POTASSIUM 100 MG TABLET PO (09:13)
[2021-11-24] MEDS: ENOXAPARIN 40 MG/0.4 ML SYRINGE SUB-Q (09:14)
[2021-11-24 09:16] LABS: Procalcitonin 0.4 ng/mL
--- NOTE | 2021-11-24 10:59 | PM.CNCAR ---
Assessment and Plan Assessment and plan (1) Acute and chronic respiratory failure with hypoxia: Code(s): J96.21 - Acute and chronic respiratory failure with hypoxia Status: Acute Plan This is a 51-year-old lady with longstanding hypertension massive obesity and a previous high amputee. She enters the hospital with recurrent shortness of breath. Recent echocardiogram demonstrates significant left ventricular systolic dysfunction. Agree with diuresis I am also going to transition her beta-josé to carvedilol and her losartan to Entresto given the findings of her recent echocardiogram. We will follow her with you during this hospitalization once again as I mentioned during last recent consult I do not plan to recommend invasive evaluation in this situation. Angel Winkler MD [facility] History of Present Illness History of Present Illness Consult date/time: 11/24/21 10:59 Consult reason: shortness of breath Reason For Visit: CHF, acute respiratory failure, elevated troponin, Narrative: This is a 51-year-old woman I am seeing this morning at the request of the hospitalist for assistance with evaluation and management of dyspnea and with evidence of decompensated congestive heart failure. The patient is known to me from a recent admission here a couple of weeks ago where she came in with some shortness of breath. Patient was unknown to me prior to that occurrence and had evidence of some mild up pulmonary congestion and she has responded well to diuresis. She has also history of longstanding severe hypertension and is a group home resident at the [facility]. She was discharged after a couple of days in the hospital feeling better with diuresis. Echocardiogram at that time demonstrated left ventricular enlargement with a ejection fraction of about 25-30%. She had some in notes in the chart that she had a history of congestive heart failure with cardiology follow-up elsewhere but we have no records of or information about that. The patient states today that she does not see a vp corporate development elsewhere at this time. She can not remember having previous cardiac evaluations performed. She feels better this morning with less problematic shortness of breath she has a hard time and answering further questions about the onset of the recurrent dyspnea. He says she not having any chest pain. Her medical regimen at this time consists of aspirin, atorvastatin, clonidine 0.2 mg t.i.d., furosemide 40 mg daily, isosorbide 30 mg daily, labetalol 200 mg q.12 hours, losartan 100 mg daily, nifedipine 60 mg daily and spironolactone. Her laboratory data shows a creatinine of 1.8 which is at her baseline from recent hospitalization. 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 There is no right lower extremity edema. Review of Systems Review of Systems: ROS unobtainable: Yes unobtainable due to mental status PMFSH Past Medical History Medical History (Updated 11/22/21 @ 23:52 by Julita Rosas PA-C) Asthma-COPD overlap syndrome Cerebrovascular accident Congestive heart failure Echocardiogram in October 2021 showed left ventricular hypertrophy with moderate left ventricular dilation and significant systolic dysfunction with an EF estimated 25 to 30%, grade 1 diastolic dysfunction, and mild right ventricular enlargement with biatrial dilation. Gastroesophageal reflux disease Hyperlipidemia Hypertension Intellectual disability Iron deficiency anemia Vitamin D deficiency Surgical History Surgical History History of right above knee amputation Family History Family History Father Congestive heart failure Hypertension Mother Congestive heart failure Hypertension Social History Social History (Reviewed 11/22/21 @ 17:3
[2021-11-24] MEDS: FUROSEMIDE INJ 40 MG/4 ML VIAL IV PUSH (11:33)
[2021-11-24] MEDS: SACUBITRIL/VALSARTAN 49-51 MG TABLET 1 TABLET PO (20:23)
[2021-11-24] MEDS: NIFEdipine 30 MG TAB.ER.24 60 MG PO (20:23)
[2021-11-24] MEDS: carvediloL 25 MG TABLET PO (20:23)
[2021-11-24] MEDS: ATORVASTATIN 40 MG TABLET 80 MG PO (23:16)
[2021-11-25] VITALS (16 sets, daily range): BP systolic 109–145; BP diastolic 46–80; PULSE 80–96; RESP 18–26; TEMP 36.1–36.7; O2SAT 96–100
[2021-11-25 05:04] LABS: Basophils Percent Auto 0.4 % (0.2-1.2); Eosinophils Absolute Auto 0.5 K/mm3 (0-0.3); Eosinophils Percent Auto 4.7 % (0-4.4); Hematocrit 34.1 % (37.0-47.0); Hemoglobin 10.2 g/dL (12.0-15.0); Immature Granulocyte Absolute 0.05 K/mm3 (0.00-0.031); Immature Granulocyte Percent A 0.5 % (0-0.5); Lymphocytes Absolute Auto 2.02 K/mm3 (0.9-3.2); Lymphocytes Percent Auto 21.2 % (18.3-44.2); Mean Corpuscular HGB Conc 29.9 g/dl (32-36); Mean Corpuscular Hemoglobin 26.6 pg (26-34); Mean Platelet Volume 10.9 fl (7.4-10.4); Monocytes Absolute Auto 0.9 K/mm3 (0.1-0.6); Monocytes Percent Auto 8.9 % (2.6-8.5); Neutrophils Absolute Auto 6.1 K/mm3 (1.3-6.7); Neutrophils Percent Auto 64.3 % (45.5-73.1); Platelet Count Result 236 k/mm3 (150-375); Red Blood Count 3.83 M/mm3 (4.2-5.4); White Blood Count 9.5 K/mm3 (4.5-10.0)
[2021-11-25 05:21] LABS: Alanine Aminotransferase 90 U/L (6-35); Albumin Level 3.5 g/dL (3.5-5.1); Alkaline Phosphatase 118 U/L (38-126); Anion Gap 4 mmol/L (8-16); Aspartate Amino Transferase 54 U/L (14-36); Bilirubin,Total 0.2 mg/dL (0.2-1.3); Blood Urea Nitrogen 38 mg/dL (7-17); Calcium 8.6 mg/dL (8.4-10.2); Carbon Dioxide 33 mmol/L (22-30); Chloride 101 mmol/L (98-107); Estimated CRCL calculation 51 ml/min; Estimated Glomerular Filt Rate 36; Glucose 105 mg/dL (65-110); Potassium 3.8 mmol/L (3.4-5.0); Sodium 138 mmol/L (137-145)
--- NOTE | 2021-11-25 05:42 | PCRCNOTE ---
PT UNCOMPLIANT WITH BIPAP. PT WAS ON 32% BIPAP FROM START OF STUDY UNTIL 29. PT WAS PLACED ON 2L NC (28% FI02) VIA RN AT 29. PT WAS ON 2L NC FROM [id number]. RT PLACED PT BACK ON 32% BIPAP AT 144 AND PT WORE 32% FROM [id number]. PT WAS PLACED BACK ON 2L NC (28% FI02) VIA RN AT 329. STUDY MAY NEED TO BE REPEATED ON 11/25 WITH NASAL CANNULA ONLY DUE TO PT BEING UNCOMPLIANT WITH BIPAP USAGE.
[2021-11-25] MEDS: SACUBITRIL/VALSARTAN 49-51 MG TABLET 1 TABLET PO ×2 (09:11→20:08)
[2021-11-25] MEDS: POTASSIUM CHLORIDE 10 MEQ TABLET.ER PO (09:11)
[2021-11-25] MEDS: ASPIRIN 81 MG CHEWABLE TABLET PO (09:12)
[2021-11-25] MEDS: ISOSORBIDE MONONITRATE 30 MG TAB.ER.24H PO (09:12)
[2021-11-25] MEDS: carvediloL 25 MG TABLET PO ×2 (09:13→20:08)
[2021-11-25] MEDS: SPIRONOLACTONE 25 MG TABLET PO (09:13)
[2021-11-25] MEDS: ENOXAPARIN 40 MG/0.4 ML SYRINGE SUB-Q (09:13)
[2021-11-25] MEDS: cloNIDine HCL 0.2 MG TABLET PO ×3 (09:13→17:21)
[2021-11-25] MEDS: ESCITALOPRAM OXALATE 10 MG TABLET PO (09:13)
[2021-11-25] MEDS: FUROSEMIDE INJ 40 MG/4 ML VIAL IV PUSH (09:13)
[2021-11-25] MEDS: FERROUS SULFATE 324 MG TABLET PO (09:14)
[2021-11-25] MEDS: hydroCHLOROthiazide 12.5 MG CAPSULE PO (09:14)
--- NOTE | 2021-11-25 09:47 | PM.PNCARD ---
Progress Note: A&P Assessment and Plan (1) Acute and chronic respiratory failure with hypoxia: Code(s): J96.21 - Acute and chronic respiratory failure with hypoxia Status: Acute Assessment and Plan: Significant LV dysfunction with EF 25 - 30% by recent echo. Continue diuresis with IV furosemide GDMT with Entresto, coreg, sprionolactone Can consider SGLT2 inhibitor but would be cautious given risk for perineal infections Invasive ischemic evaluation not recommended OK to transfer from IMU Will continue to follow with you Subjective Date/time seen: 11/25/21 09:47 cardiology follow-up for CHF No acute events overnight. Does not have any complaints of chest pain, shortness of breath. Moving out of IMU today. Review of Systems Review of Systems: ROS unobtainable: Yes unobtainable due to mental status Exam Const: Other: Morbidly obese black female supine in bed. Comfortable, no distress. HENMT: Mouth: Yes moist mucous membranes Eyes: Sclera: sclerae normal Pupils: Equal, round and reactive pupils present Neck: Neck: supple Other: Unable to assess JVD given her body habitus. Resp: Effort & Inspection: normal respiratory effort Auscultation: clear to auscultation bilaterally and diminished lung sounds Cardio: Rate: regular rate Rhythm: regular rhythm Heart sounds: Other heart sounds present (distant heart sounds ) GI: Auscultation: normal bowel sounds Skin: Other: warm and dry Neuro: Cranial nerves: Yes Equal, round and reactive pupils present Other: Responsive and alert Extrem: Other: No edema in the remaining lower extremity Objective Data Vital Signs Vital Signs: Vital Signs - 24 hr 11/24/21 10:00 11/24/21 12:00 11/24/21 12:00 Temperature 36.1 C L Pulse Rate 90 92 87 Respiratory Rate 20 Blood Pressure 144/84 H Pulse Oximetry 20 L Oxygen Delivery Oxygen Flow Rate Fraction of Inspired Oxygen 11/24/21 14:00 11/24/21 16:00 11/24/21 16:00 Temperature 36.3 C L Pulse Rate 85 87 89 Respiratory Rate 24 H Blood Pressure 156/85 H Pulse Oximetry 100 Oxygen Delivery Oxygen Flow Rate Fraction of Inspired Oxygen 11/24/21 18:54 11/24/21 19:53 11/24/21 20:23 Temperature 36.4 C Pulse Rate 86 94 74 Respiratory Rate 22 H Blood Pressure 145/71 H Pulse Oximetry 100 Oxygen Delivery Oxygen Flow Rate Fraction of Inspired Oxygen 11/24/21 20:00 11/24/21 20:00 11/24/21 21:35 Temperature Pulse Rate 98 74 99 Respiratory Rate 22 H Blood Pressure Pulse Oximetry 100 Oxygen Delivery Nasal Cannula Oxygen Flow Rate 2 Fraction of Inspired Oxygen 32 11/24/21 22:52 11/24/21 22:53 11/24/21 23:48 Temperature 36.6 C Pulse Rate 87 85 Respiratory Rate 26 H 20 Blood Pressure 132/78 Pulse Oximetry 100 100 100 Oxygen Delivery BiPAP BiPAP Oxygen Flow Rate Fraction of Inspired Oxygen 32 11/25/21 00:00 11/25/21 00:00 11/25/21 01:46 Temperature Pulse Rate 89 85 84 Respiratory Rate 20 24 H Blood Pressure Pulse Oximetry 100 100 Oxygen Delivery Nasal Cannula BiPAP Oxygen Flow Rate 2 Fraction of Inspired Oxygen 32 11/25/21 02:00 11/25/21 04:00 11/25/21 04:00 Temperature 36.7 C Pulse Rate 90 80 96 Respiratory Rate 18 Blood Pressure 138/66 Pulse Oximetry 96 Oxygen Delivery Oxygen Flow Rate Fraction of Inspired Oxygen 11/25/21 04:00 11/25/21 06:00 11/25/21 07:54 Temperature 36.1 C L Pulse Rate 80 85 84 Respiratory Rate 18 24 H Blood Pressure 145/80 H Pulse Oximetry 96 100 Oxygen Delivery Nasal Cannula Oxygen Flow Rate 2 Fraction of Inspired Oxygen 32 11/25/21 09:13 Temperature Pulse Rate 88 Respiratory Rate Blood Pressure Pulse Oximetry Oxygen Delivery Oxygen Flow Rate Fraction of Inspired Oxygen Intake/Output Intake/Output: Intake & Output 11/22/21 11/23/21 11/24/21 11/25/21 23:59 23:59 23:59 23:5
--- NOTE | 2021-11-25 09:55 | PM.IMPN ---
Progress Note: A&P Assessment and Plan (1) Acute exacerbation of congestive heart failure: Code(s): I50.9 - Heart failure, unspecified Status: Acute Assessment and Plan: Acute on chronic systolic congestive heart failure exacerbation likely precipitated by flash pulmonary edema from hypertensive urgency. Continue furosemide IV for diuresis with Lasix 40 mg b.i.d. and BiPAP as needed. Nitroglycerin paste was placed in the ER. Continue spironolactone, beta-josé, and ARB. Continue to monitor urine output. She has a catheter in place 11/24: Repeat chest x-ray shows improvement, pneumonia less likely, will check procalcitonin, if this is negative, discontinue antibiotics and monitor symptoms off antibiotics, will consult Cardiology. Heart failure appears clinically improved in addition chest x-ray, however, creatinine, BUN as well as LFTs are elevated from yesterday suggesting hypoperfusion versus fluid congestion due to continued heart failure, will decrease diuresis dose today and reassess fluid status and symptoms tomorrow. 11/25: Creatinine improved, symptoms about the same or slightly better than yesterday, will put patient back on home oral diuresis, LFTs improving, but slowly, will check hepatitis panel and liver ultrasound (2) Elevated troponin: Code(s): R77.8 - Other specified abnormalities of plasma proteins Status: Acute Assessment and Plan: Troponins are once again elevated but have remained flat and trending downwards. She is denying chest pain at this time. Likely due to [place] [id number] 11/24: Consult cardiology, suspect elevated troponin secondary to heart failure exacerbation as opposed to NSTEMI, continue to monitor telemetry. Recheck troponin today. Will discontinue nitropaste today and assess symptoms. 11/25: Asymptomatic off nitro paste, troponin improved, Cardiology recommended carvedilol and Entresto (3) Hypertensive urgency: Code(s): I16.0 - Hypertensive urgency Status: Acute Assessment and Plan: Blood pressures have improved significantly with nitropaste and furosemide. Continue antihypertensives and monitor closely. (4) Pulmonary infiltrates: Code(s): R91.8 - Other nonspecific abnormal finding of lung field Status: Acute Assessment and Plan: Most likely related to pulmonary edema. Due to elevated white blood cell count started on azithromycin and ceftriaxone for possible pneumonia which is continued. She also had a spike of fever 11/22/2021. Pancultured continue to follow cultures 11/24: Unsure if patient had pneumonia, chest x-ray improved rapidly as well as symptoms with diuresis, will check procalcitonin, Continue antibiotics for now since patient did have fevers although unsure if patient had pneumonia, Legionella and pneumococcal ab pending 11/25: Procalcitonin was low, antibodies still pending, will discontinue antibiotics tomorrow after a 5 day course (5) Chronic kidney disease: Code(s): N18.9 - Chronic kidney disease, unspecified Status: Acute Assessment and Plan: Creatinine is stable on review of previous labs and will be monitored while diuresing. 11/24: Creatinine and BUN elevated a bit today, will decrease diuretic dose and recheck tomorrow 11/25: Creatinine BUN decreased today, symptoms remained stable, will transition to oral diuresis (6) Asthma-COPD overlap syndrome: Code(s): J44.9 - Chronic obstructive pulmonary disease, unspecified Status: Acute Assessment and Plan: No significant wheezing Continue bronchodilators as ordered 11/24: Continue breathing treatments, no steroids were started, continue to monitor off steroids, suspect most of symptoms are secondary to heart failure exacerbation 11/25: Continue current management, symptoms stable (7) Acute and chronic respiratory failure with hypoxia: Code(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
[2021-11-25 10:56] LABS: Hepatitis B Surface Antigen Negative (Negative)
[2021-11-25 11:01] LABS: HAV RESULT Negative (Negative); Hepatitis B Core IgM Result Negative (Negative)
[2021-11-25 11:13] LABS: Hepatitis C Virus Antibody Negative (Negative)
--- NOTE | 2021-11-25 17:55 | PC.NURSE ---
pt transferred to room 306 via bed accompanied by staff-O2 at 2l/nc- report given to Germania RN- belongings sent with pt - BiPAP machine sent with pt
--- NOTE | 2021-11-25 18:16 | ADMGEN ---
This patient, Mirela Preston, was admitted to [facility] Surg Room 306-01 from IMU at 1740. Patient/family oriented to hospital policies and general routines including ID bracelet, bed and alarms, visiting hours, pain management, procedures, bathroom and other care routines, personal items, smoking policy, room service/diet, and visiting hours. Information on how to activate the Rapid Response Team has been discussed. Patient/Family are encouraged to report perceived risks to care and to ask questions if they do not understand what they are told or what they should do.
[2021-11-25] MEDS: NIFEdipine 30 MG TAB.ER.24 60 MG PO (20:08)
[2021-11-25] MEDS: ATORVASTATIN 40 MG TABLET 80 MG PO (20:08)
[2021-11-25 22:39] LABS: Pneumococcal Antigen Urine Not Detected (Not Detected)
[2021-11-26] VITALS (8 sets, daily range): BP systolic 117–135; BP diastolic 71; PULSE 74–90; RESP 16–18; TEMP 36.1–36.3; O2SAT 96–100
[2021-11-26 06:26] LABS: Basophils Percent Auto 0.5 % (0.2-1.2); Eosinophils Absolute Auto 0.4 K/mm3 (0-0.3); Eosinophils Percent Auto 5.1 % (0-4.4); Hematocrit 33.2 % (37.0-47.0); Hemoglobin 10.4 g/dL (12.0-15.0); Immature Granulocyte Absolute 0.04 K/mm3 (0.00-0.031); Immature Granulocyte Percent A 0.5 % (0-0.5); Lymphocytes Absolute Auto 2.11 K/mm3 (0.9-3.2); Lymphocytes Percent Auto 25.4 % (18.3-44.2); Mean Corpuscular HGB Conc 31.3 g/dl (32-36); Mean Corpuscular Hemoglobin 27.4 pg (26-34); Mean Corpuscular Volume 87.6 fl (80-100); Monocytes Absolute Auto 0.8 K/mm3 (0.1-0.6); Monocytes Percent Auto 10.1 % (2.6-8.5); Neutrophils Absolute Auto 4.9 K/mm3 (1.3-6.7); Neutrophils Percent Auto 58.4 % (45.5-73.1); Platelet Count Result 241 k/mm3 (150-375); Red Blood Count 3.79 M/mm3 (4.2-5.4); Red Cell Distribution Width 16.7 % (11.5-14.5); White Blood Count 8.3 K/mm3 (4.5-10.0)
[2021-11-26 06:44] LABS: Alanine Aminotransferase 63 U/L (6-35); Albumin Level 3.4 g/dL (3.5-5.1); Alkaline Phosphatase 111 U/L (38-126); Anion Gap 5 mmol/L (8-16); Aspartate Amino Transferase 35 U/L (14-36); Bilirubin,Total 0.3 mg/dL (0.2-1.3); Blood Urea Nitrogen 38 mg/dL (7-17); Calcium 8.6 mg/dL (8.4-10.2); Carbon Dioxide 31 mmol/L (22-30); Chloride 102 mmol/L (98-107); Estimated CRCL calculation 61 ml/min; Estimated Glomerular Filt Rate 45; Glucose 99 mg/dL (65-110); Potassium 3.9 mmol/L (3.4-5.0); Sodium 138 mmol/L (137-145)
--- NOTE | 2021-11-26 08:09 | PM.PNCARD ---
Progress Note: A&P Assessment and Plan (1) Acute and chronic respiratory failure with hypoxia: Code(s): J96.21 - Acute and chronic respiratory failure with hypoxia Status: Acute Assessment and Plan: Significant LV dysfunction with EF 25 - 30% by recent echo. Continue diuresis with IV furosemide GDMT with Entresto, coreg, sprionolactone Can consider SGLT2 inhibitor but would be cautious given risk for perineal infections Invasive ischemic evaluation not recommended Will follow on an as needed basis. Please do not hesitate to call with any questions. Subjective Date/time seen: 11/26/21 08:09 Cardiology follow up for CHF No acute events overnight. Feels fine this morning with no complaints. Denies shortness of breath. Review of Systems Review of Systems: ROS unobtainable: Yes unobtainable due to mental status Exam Const: Other: Morbidly obese black female supine in bed. Comfortable, no distress. HENMT: Mouth: Yes moist mucous membranes Eyes: Sclera: sclerae normal Pupils: Equal, round and reactive pupils present Neck: Neck: supple Other: Unable to assess JVD given her body habitus. Resp: Effort & Inspection: normal respiratory effort Auscultation: clear to auscultation bilaterally and diminished lung sounds Other: Breath sounds are markedly diminished in both lung daniels because of the obesity I do not hear any obvious wheezing or rales at this time Cardio: Rate: regular rate Rhythm: regular rhythm Heart sounds: Other heart sounds present (distant heart sounds ) Other: First and second heart sounds are normal but distant because of her size no audible murmur or gallop at this time GI: Auscultation: normal bowel sounds Skin: Other: warm and dry Neuro: Cranial nerves: Yes Equal, round and reactive pupils present Other: Responsive and alert Extrem: Other: No edema in the remaining lower extremity Objective Data Vital Signs Vital Signs: Vital Signs - 24 hr 11/25/21 09:13 11/25/21 08:50 11/25/21 08:50 Temperature Pulse Rate 88 87 Respiratory Rate Blood Pressure Pulse Oximetry 98 Oxygen Delivery Nasal Cannula Oxygen Flow Rate 2 11/25/21 10:00 11/25/21 11:57 11/25/21 12:00 Temperature 36.3 C L Pulse Rate 85 80 88 Respiratory Rate 26 H Blood Pressure 138/66 Pulse Oximetry 100 Oxygen Delivery Oxygen Flow Rate 11/25/21 16:00 11/25/21 20:08 11/25/21 20:00 Temperature 36.2 C L Pulse Rate 85 85 Respiratory Rate 24 H Blood Pressure 109/46 L Pulse Oximetry 99 98 Oxygen Delivery Nasal Cannula Oxygen Flow Rate 2 11/25/21 22:00 11/25/21 23:09 Temperature 36.1 C L Pulse Rate 92 Respiratory Rate 20 Blood Pressure 115/67 Pulse Oximetry 100 98 Oxygen Delivery Nasal Cannula Oxygen Flow Rate 2 Intake/Output Intake/Output: Intake & Output 11/23/21 11/24/21 11/25/21 11/26/21 23:59 23:59 23:59 23:59 Intake Total 2790 2090 1900 250 Output Total 1450 2100 2100 800 Balance 3368 -95 -200 -264 Meds/Results Medications: Active Medications Generic Name Dose Route Start Last Admin Trade Name Freq PRN Reason Stop Dose Admin Albuterol 2.5 mg 11/23/21 00:11 Albuterol Sulfate Neb 2.5 Mg/0.5 Ml Inh INHALATION BID PRN Shortness Of Breath Or Wheezing Aspirin 81 mg 11/23/21 08:00 11/25/21 09:12 Aspirin 81 Mg Chewable Tablet PO 81 mg DAILY@0800 TYRELL Administration Atorvastatin Calcium 80 mg 11/23/21 21:00 11/25/21 20:08 Atorvastatin 40 Mg Tablet PO 80 mg HS TYRELL Administration Calcium Carbonate 1,000 mg 11/23/21 09:00 11/25/21 09:12 Calcium/Vitamin D 500 Mg Tablet PO 1,000 mg QAM TYRELL Administration Carvedilol 25 mg 11/24/21 21:00 11/25/21 20:08 Carvedilol 25 Mg Tablet PO 25 mg Q12HR TYRELL Administration Clonidine HCl 0.2 mg 11/23/21 09:00 11/25/21 17:21 Clonidine Hcl 0.2 Mg Tablet PO 0.2 mg TID TYRELL Administration Enoxapari
[2021-11-26] MEDS: SPIRONOLACTONE 25 MG TABLET PO (09:23)
[2021-11-26] MEDS: ENOXAPARIN 40 MG/0.4 ML SYRINGE SUB-Q (09:23)
[2021-11-26] MEDS: carvediloL 25 MG TABLET PO ×2 (09:23→20:44)
[2021-11-26] MEDS: ASPIRIN 81 MG CHEWABLE TABLET PO (09:23)
[2021-11-26] MEDS: cloNIDine HCL 0.2 MG TABLET PO ×3 (09:23→16:59)
[2021-11-26] MEDS: POTASSIUM CHLORIDE 10 MEQ TABLET.ER PO (09:23)
[2021-11-26] MEDS: SACUBITRIL/VALSARTAN 49-51 MG TABLET 1 TABLET PO ×2 (09:24→20:44)
[2021-11-26] MEDS: TOLNAFTATE 1% POWDER 45 GM BTL 1 APPLIC TOPICAL (09:24)
[2021-11-26] MEDS: FUROSEMIDE INJ 40 MG/4 ML VIAL IV PUSH (09:24)
[2021-11-26] MEDS: ISOSORBIDE MONONITRATE 30 MG TAB.ER.24H PO (09:24)
[2021-11-26] MEDS: ESCITALOPRAM OXALATE 10 MG TABLET PO (09:24)
[2021-11-26] MEDS: hydroCHLOROthiazide 12.5 MG CAPSULE PO (09:24)
--- NOTE | 2021-11-26 14:44 | PM.IMPN ---
Progress Note: A&P Assessment and Plan (1) Acute exacerbation of congestive heart failure: Code(s): I50.9 - Heart failure, unspecified Status: Acute Assessment and Plan: Acute on chronic systolic congestive heart failure exacerbation likely precipitated by flash pulmonary edema from hypertensive urgency. Continue furosemide IV for diuresis with Lasix 40 mg b.i.d. and BiPAP as needed. Nitroglycerin paste was placed in the ER. Continue spironolactone, beta-josé, and ARB. Continue to monitor urine output. She has a catheter in place 11/24: Repeat chest x-ray shows improvement, pneumonia less likely, will check procalcitonin, if this is negative, discontinue antibiotics and monitor symptoms off antibiotics, will consult Cardiology. Heart failure appears clinically improved in addition chest x-ray, however, creatinine, BUN as well as LFTs are elevated from yesterday suggesting hypoperfusion versus fluid congestion due to continued heart failure, will decrease diuresis dose today and reassess fluid status and symptoms tomorrow. 11/25: Creatinine improved, symptoms about the same or slightly better than yesterday, will put patient back on home oral diuresis, LFTs improving, but slowly, will check hepatitis panel and liver ultrasound 11/26: Check BNP and chest x-ray, consult gen surgery for cholelithiasis with elevated LFTs noted on US yesterday, hepatitis panel pending, LFTs improving (2) Elevated troponin: Code(s): R77.8 - Other specified abnormalities of plasma proteins Status: Acute Assessment and Plan: Troponins are once again elevated but have remained flat and trending downwards. She is denying chest pain at this time. Likely due to [place] [id number] 11/24: Consult cardiology, suspect elevated troponin secondary to heart failure exacerbation as opposed to NSTEMI, continue to monitor telemetry. Recheck troponin today. Will discontinue nitropaste today and assess symptoms. 11/25: Asymptomatic off nitro paste, troponin improved, Cardiology recommended carvedilol and Entresto (3) Hypertensive urgency: Code(s): I16.0 - Hypertensive urgency Status: Acute Assessment and Plan: Blood pressures have improved significantly with nitropaste and furosemide. Continue antihypertensives and monitor closely. (4) Pulmonary infiltrates: Code(s): R91.8 - Other nonspecific abnormal finding of lung field Status: Acute Assessment and Plan: Most likely related to pulmonary edema. Due to elevated white blood cell count started on azithromycin and ceftriaxone for possible pneumonia which is continued. She also had a spike of fever 11/22/2021. Pancultured continue to follow cultures 11/24: Unsure if patient had pneumonia, chest x-ray improved rapidly as well as symptoms with diuresis, will check procalcitonin, Continue antibiotics for now since patient did have fevers although unsure if patient had pneumonia, Legionella and pneumococcal ab pending 11/25: Procalcitonin was low, antibodies still pending, will discontinue antibiotics tomorrow after a 5 day course 11/26: abx d/c today (5) Chronic kidney disease: Code(s): N18.9 - Chronic kidney disease, unspecified Status: Acute Assessment and Plan: Creatinine is stable on review of previous labs and will be monitored while diuresing. 11/24: Creatinine and BUN elevated a bit today, will decrease diuretic dose and recheck tomorrow 11/25: Creatinine BUN decreased today, symptoms remained stable, will transition to oral diuresis 11/26: creat improved with decreased diuresis, recheck tomorrow (6) Asthma-COPD overlap syndrome: Code(s): J44.9 - Chronic obstructive pulmonary disease, unspecified Status: Acute Assessment and Plan: No significant wheezing Continue bronchodilators as ordered 11/24: Continue breathing treatments, no steroids were started, continue to m
[2021-11-26 17:07] LABS: NT Pro B Type Natriuretic Pept 1560 pg/mL (5-100)
[2021-11-26] MEDS: ATORVASTATIN 40 MG TABLET 80 MG PO (20:44)
[2021-11-26] MEDS: NIFEdipine 30 MG TAB.ER.24 60 MG PO (20:44)
[2021-11-27] VITALS (7 sets, daily range): BP systolic 90–141; BP diastolic 66–73; PULSE 75–89; RESP 16–20; TEMP 35.6–36.1; O2SAT 95–100
[2021-11-27 04:02] LABS: Legionella pneumophila Ag Ur Not Detected (Not Detected)
[2021-11-27 06:23] LABS: Basophils Absolute Auto 0.1 K/mm3 (0.0-0.1); Basophils Percent Auto 0.7 % (0.2-1.2); Eosinophils Absolute Auto 0.4 K/mm3 (0-0.3); Eosinophils Percent Auto 5.5 % (0-4.4); Hematocrit 36.6 % (37.0-47.0); Hemoglobin 10.8 g/dL (12.0-15.0); Immature Granulocyte Absolute 0.02 K/mm3 (0.00-0.031); Immature Granulocyte Percent A 0.3 % (0-0.5); Lymphocytes Absolute Auto 2.12 K/mm3 (0.9-3.2); Lymphocytes Percent Auto 30.8 % (18.3-44.2); Mean Corpuscular HGB Conc 29.5 g/dl (32-36); Mean Corpuscular Hemoglobin 26.5 pg (26-34); Mean Corpuscular Volume 89.7 fl (80-100); Monocytes Absolute Auto 0.7 K/mm3 (0.1-0.6); Monocytes Percent Auto 9.7 % (2.6-8.5); Neutrophils Absolute Auto 3.6 K/mm3 (1.3-6.7); Platelet Count Result 247 k/mm3 (150-375); Red Blood Count 4.08 M/mm3 (4.2-5.4); Red Cell Distribution Width 16.6 % (11.5-14.5); White Blood Count 6.9 K/mm3 (4.5-10.0)
[2021-11-27 06:30] LABS: Alanine Aminotransferase 54 U/L (6-35); Albumin Level 3.7 g/dL (3.5-5.1); Alkaline Phosphatase 127 U/L (38-126); Anion Gap 4 mmol/L (8-16); Aspartate Amino Transferase 31 U/L (14-36); Bilirubin,Total 0.2 mg/dL (0.2-1.3); Blood Urea Nitrogen 32 mg/dL (7-17); Calcium 8.6 mg/dL (8.4-10.2); Carbon Dioxide 34 mmol/L (22-30); Chloride 102 mmol/L (98-107); Estimated CRCL calculation 61 ml/min; Estimated Glomerular Filt Rate 45; Glucose 99 mg/dL (65-110); Potassium 4.1 mmol/L (3.4-5.0); Sodium 140 mmol/L (137-145)
--- NOTE | 2021-11-27 08:20 | PM.DS ---
DS: Admitting Diagnosis Discharge Date November 28, 2021 Admitting Diagnosis shortness of breath DS: Discharge Diagnosis Discharge Diagnosis (1) Acute exacerbation of congestive heart failure: Code(s): I50.9 - Heart failure, unspecified Status: Acute Assessment and Plan: Acute on chronic systolic congestive heart failure exacerbation likely precipitated by flash pulmonary edema from hypertensive urgency. Continue furosemide IV for diuresis with Lasix 40 mg b.i.d. and BiPAP as needed. Nitroglycerin paste was placed in the ER. Continue spironolactone, beta-josé, and ARB. Continue to monitor urine output. She has a catheter in place 11/24: Repeat chest x-ray shows improvement, pneumonia less likely, will check procalcitonin, if this is negative, discontinue antibiotics and monitor symptoms off antibiotics, will consult Cardiology. Heart failure appears clinically improved in addition chest x-ray, however, creatinine, BUN as well as LFTs are elevated from yesterday suggesting hypoperfusion versus fluid congestion due to continued heart failure, will decrease diuresis dose today and reassess fluid status and symptoms tomorrow. 11/25: Creatinine improved, symptoms about the same or slightly better than yesterday, will put patient back on home oral diuresis, LFTs improving, but slowly, will check hepatitis panel and liver ultrasound 11/26: Check BNP and chest x-ray, consult gen surgery for cholelithiasis with elevated LFTs noted on US yesterday, hepatitis panel pending, LFTs improving 11/27: General surgery consult recommended no surgical intervention due to patient's high risk for mortality with congestive heart failure and comorbidities. Patient also was essentially asymptomatic of her cholelithiasis. (2) Elevated troponin: Code(s): R77.8 - Other specified abnormalities of plasma proteins Status: Acute Assessment and Plan: Troponins are once again elevated but have remained flat and trending downwards. She is denying chest pain at this time. Likely due to [place] [id number] 11/24: Consult cardiology, suspect elevated troponin secondary to heart failure exacerbation as opposed to NSTEMI, continue to monitor telemetry. Recheck troponin today. Will discontinue nitropaste today and assess symptoms. 11/25: Asymptomatic off nitro paste, troponin improved, Cardiology recommended carvedilol and Entresto (3) Hypertensive urgency: Code(s): I16.0 - Hypertensive urgency Status: Acute Assessment and Plan: Blood pressures have improved significantly with nitropaste and furosemide. Continue antihypertensives and monitor closely. (4) Pulmonary infiltrates: Code(s): R91.8 - Other nonspecific abnormal finding of lung field Status: Acute Assessment and Plan: Most likely related to pulmonary edema. Due to elevated white blood cell count started on azithromycin and ceftriaxone for possible pneumonia which is continued. She also had a spike of fever 11/22/2021. Pancultured continue to follow cultures 11/24: Unsure if patient had pneumonia, chest x-ray improved rapidly as well as symptoms with diuresis, will check procalcitonin, Continue antibiotics for now since patient did have fevers although unsure if patient had pneumonia, Legionella and pneumococcal ab pending 11/25: Procalcitonin was low, antibodies still pending, will discontinue antibiotics tomorrow after a 5 day course 11/26: abx d/c today (5) Chronic kidney disease: Code(s): N18.9 - Chronic kidney disease, unspecified Status: Acute Assessment and Plan: Creatinine is stable on review of previous labs and will be monitored while diuresing. 11/24: Creatinine and BUN elevated a bit today, will decrease diuretic dose and recheck tomorrow 11/25: Creatinine BUN decreased today, symptoms remained stable, will transition to oral diuresis 11/26: creat improved with decrease
[2021-11-27] MEDS: ASPIRIN 81 MG CHEWABLE TABLET PO (08:32)
[2021-11-27] MEDS: FUROSEMIDE 40 MG TABLET PO (08:32)
[2021-11-27] MEDS: ISOSORBIDE MONONITRATE 30 MG TAB.ER.24H PO (08:32)
[2021-11-27] MEDS: ESCITALOPRAM OXALATE 10 MG TABLET PO (08:32)
[2021-11-27] MEDS: hydroCHLOROthiazide 12.5 MG CAPSULE PO (08:32)
[2021-11-27] MEDS: ENOXAPARIN 40 MG/0.4 ML SYRINGE SUB-Q (08:32)
[2021-11-27] MEDS: POTASSIUM CHLORIDE 10 MEQ TABLET.ER PO (08:32)
[2021-11-27] MEDS: cloNIDine HCL 0.2 MG TABLET PO ×3 (08:32→17:31)
[2021-11-27] MEDS: carvediloL 25 MG TABLET PO ×2 (08:32→20:34)
[2021-11-27] MEDS: SACUBITRIL/VALSARTAN 49-51 MG TABLET 1 TABLET PO ×2 (08:32→20:34)
[2021-11-27] MEDS: SPIRONOLACTONE 25 MG TABLET PO (08:33)
[2021-11-27] MEDS: FERROUS SULFATE 324 MG TABLET PO (08:33)
--- NOTE | 2021-11-27 11:47 | P.PNIM_ITS ---
Progress Note: A&P Assessment and Plan (1) Acute exacerbation of congestive heart failure: Code(s): I50.9 - Heart failure, unspecified Status: Acute Assessment and Plan: Acute on chronic systolic congestive heart failure exacerbation likely precipitated by flash pulmonary edema from hypertensive urgency. Continue furosemide IV for diuresis with Lasix 40 mg b.i.d. and BiPAP as needed. Nitroglycerin paste was placed in the ER. Continue spironolactone, beta-josé, and ARB. Continue to monitor urine output. She has a catheter in place 11/24: Repeat chest x-ray shows improvement, pneumonia less likely, will check procalcitonin, if this is negative, discontinue antibiotics and monitor symptoms off antibiotics, will consult Cardiology. Heart failure appears clinically improved in addition chest x-ray, however, creatinine, BUN as well as LFTs are elevated from yesterday suggesting hypoperfusion versus fluid congestion due to continued heart failure, will decrease diuresis dose today and reassess fluid status and symptoms tomorrow. 11/25: Creatinine improved, symptoms about the same or slightly better than yesterday, will put patient back on home oral diuresis, LFTs improving, but slowly, will check hepatitis panel and liver ultrasound 11/26: Check BNP and chest x-ray, consult gen surgery for cholelithiasis with elevated LFTs noted on US yesterday, hepatitis panel pending, LFTs improving 11/27: surgery c/s pending (2) Elevated troponin: Code(s): R77.8 - Other specified abnormalities of plasma proteins Status: Acute Assessment and Plan: Troponins are once again elevated but have remained flat and trending downwards. She is denying chest pain at this time. Likely due to [place] [address] 11/24: Consult cardiology, suspect elevated troponin secondary to heart failure exacerbation as opposed to NSTEMI, continue to monitor telemetry. Recheck troponin today. Will discontinue nitropaste today and assess symptoms. 11/25: Asymptomatic off nitro paste, troponin improved, Cardiology recommended carvedilol and Entresto (3) Hypertensive urgency: Code(s): I16.0 - Hypertensive urgency Status: Acute Assessment and Plan: Blood pressures have improved significantly with nitropaste and furosemide. Continue antihypertensives and monitor closely. (4) Pulmonary infiltrates: Code(s): R91.8 - Other nonspecific abnormal finding of lung field Status: Acute Assessment and Plan: Most likely related to pulmonary edema. Due to elevated white blood cell count started on azithromycin and ceftriaxone for possible pneumonia which is continued. She also had a spike of fever 11/22/2021. Pancultured continue to follow cultures 11/24: Unsure if patient had pneumonia, chest x-ray improved rapidly as well a s symptoms with diuresis, will check procalcitonin, Continue antibiotics for now since patient did have fevers although unsure if patient had pneumonia, Legionella and pneumococcal ab pending 11/25: Procalcitonin was low, antibodies still pending, will discontinue antibiotics tomorrow after a 5 day course 11/26: abx d/c today (5) Chronic kidney disease: Code(s): N18.9 - Chronic kidney disease, unspecified Status: Acute Assessment and Plan: Creatinine is stable on review of previous labs and will be monitored while diuresing. 11/24: Creatinine and BUN elevated a bit today, will decrease diuretic dose and recheck tomorrow 11/25: Creatinine BUN decreased today, symptoms remained stable, will transition to oral diures
--- NOTE | 2021-11-27 12:55 | PM.CNGS ---
Assessment and Plan Assessment and plan (1) Calculus of gallbladder: Code(s): K80.20 - Calculus of gallbladder without cholecystitis without obstruction Status: Acute Assessment and Plan: I have reviewed the ultrasound and discussed the findings with the patient. This ultrasound was done for elevated liver enzymes and patient has absolutely no abdominal symptoms. This is likely an incidental finding and due to patient's severe comorbidities, I would not recommend surgery unless it was life for . Would recommend continuing to monitor for any symptoms such as pain after eating heavier meals. She may always follow up as an outpatient if she is developing any potential gallbladder symptoms. Any surgical of intervention would be extremely high risk for mortality given patient's congestive heart failure and other comorbidities. (2) Elevated liver transaminase level: Code(s): R74.01 - Elevation of levels of liver transaminase levels Status: Acute (3) Acute and chronic respiratory failure with hypoxia: Code(s): J96.21 - Acute and chronic respiratory failure with hypoxia Status: Acute (4) Acute exacerbation of congestive heart failure: Code(s): I50.9 - Heart failure, unspecified Status: Acute (5) BMI 50.0-59.9, adult: Code(s): Z68.43 - Body mass index [BMI] 50.0-59.9, adult Status: Acute History of Present Illness Consult details Consult date: 11/27/21 Reason for consult: gallstones Requesting physician: April Maurice DO Narrative: This is a 51-year-old woman who I am asked to see for gallstones. She has been hospitalized since 11/22/2021. She presented to the emergency department via EMS with shortness of breath. She was admitted with acute exacerbation of congestive heart failure, elevated troponins, hypertension, pulmonary edema, and chronic kidney disease. She had slightly elevated transaminases on admission. Ultrasound was obtained on 11/26/2021 for the elevated liver enzymes and this showed cholelithiasis with a normal sized common bile duct at 3.5 mm. Patient reports no abdominal pain. She has no intolerance is to any certain types of foods. This was purely an incidental finding. Review of Systems Review of Systems: All systems reviewed & are unremarkable except as noted in HPI and below Constitutional: Constitutional: Denies chills and Denies fever(s) Eyes: Eyes: Denies change in vision ENT: Denies hearing loss, Denies neck pain and Denies sore throat Cardiovascular: Cardiovascular: Denies chest pain and Denies dyspnea Respiratory: Respiratory: Denies cough, Denies dyspnea and Denies wheezing Gastrointestinal: Gastrointestinal: Reports as per HPI, Denies abdominal pain, Denies nausea and Denies vomiting Genitourinary: Genitourinary: Denies hematuria and Denies dysuria Musculoskeletal: Musculoskeletal: Denies arthralgias, Denies joint swelling and Denies neck pain Allergic/Immunologic: Allergic/Immunologic: Denies wheezing [facility] Past Medical History Medical History (Updated 11/27/21 @ 13:04 by Pete Gould, DO) Asthma-COPD overlap syndrome Cerebrovascular accident Congestive heart failure Echocardiogram in October 2021 showed left ventricular hypertrophy with moderate left ventricular dilation and significant systolic dysfunction with an EF estimated 25 to 30%, grade 1 diastolic dysfunction, and mild right ventricular enlargement with biatrial dilation. Gastroesophageal reflux disease Hyperlipidemia Hypertension Intellectual disability Iron deficiency anemia Vitamin D deficiency Surgical History Surgical History History of right above knee amputation Family History Family History Father Congestive heart failure Hypertension Mother Congestive heart failure Hypertension Social History Social History (
[2021-11-27] MEDS: NIFEdipine 30 MG TAB.ER.24 60 MG PO (20:34)
[2021-11-27] MEDS: ATORVASTATIN 40 MG TABLET 80 MG PO (20:34)
[2021-11-28 06:00] VITALS: BP 156/84; PULSE 74; RESP 16; TEMP 36.8; O2SAT 100
[2021-11-28 06:28] LABS: Basophils Percent Auto 0.5 % (0.2-1.2); Eosinophils Absolute Auto 0.3 K/mm3 (0-0.3); Eosinophils Percent Auto 4.4 % (0-4.4); Hematocrit 34.1 % (37.0-47.0); Hemoglobin 10.2 g/dL (12.0-15.0); Immature Granulocyte Absolute 0.03 K/mm3 (0.00-0.031); Immature Granulocyte Percent A 0.4 % (0-0.5); Lymphocytes Absolute Auto 2.12 K/mm3 (0.9-3.2); Lymphocytes Percent Auto 27.7 % (18.3-44.2); Mean Corpuscular HGB Conc 29.9 g/dl (32-36); Mean Corpuscular Hemoglobin 26.6 pg (26-34); Monocytes Absolute Auto 0.7 K/mm3 (0.1-0.6); Monocytes Percent Auto 9.1 % (2.6-8.5); Neutrophils Absolute Auto 4.4 K/mm3 (1.3-6.7); Neutrophils Percent Auto 57.9 % (45.5-73.1); Platelet Count Result 226 k/mm3 (150-375); Red Blood Count 3.83 M/mm3 (4.2-5.4); Red Cell Distribution Width 16.5 % (11.5-14.5); White Blood Count 7.7 K/mm3 (4.5-10.0)
[2021-11-28 06:37] LABS: Alanine Aminotransferase 46 U/L (6-35); Albumin Level 3.7 g/dL (3.5-5.1); Alkaline Phosphatase 133 U/L (38-126); Anion Gap 5 mmol/L (8-16); Aspartate Amino Transferase 30 U/L (14-36); Bilirubin,Total 0.3 mg/dL (0.2-1.3); Blood Urea Nitrogen 27 mg/dL (7-17); Calcium 8.8 mg/dL (8.4-10.2); Carbon Dioxide 36 mmol/L (22-30); Chloride 99 mmol/L (98-107); Estimated CRCL calculation 65 ml/min; Estimated Glomerular Filt Rate 48; Glucose 95 mg/dL (65-110); Potassium 3.8 mmol/L (3.4-5.0); Sodium 140 mmol/L (137-145)
[2021-11-28 08:42] VITALS: PULSE 88
[2021-11-28] MEDS: ESCITALOPRAM OXALATE 10 MG TABLET PO (08:42)
[2021-11-28] MEDS: cloNIDine HCL 0.2 MG TABLET PO ×2 (08:42→11:59)
[2021-11-28] MEDS: ISOSORBIDE MONONITRATE 30 MG TAB.ER.24H PO (08:42)
[2021-11-28] MEDS: carvediloL 25 MG TABLET PO (08:42)
[2021-11-28] MEDS: SPIRONOLACTONE 25 MG TABLET PO (08:42)
[2021-11-28] MEDS: ENOXAPARIN 40 MG/0.4 ML SYRINGE SUB-Q (08:42)
[2021-11-28] MEDS: ASPIRIN 81 MG CHEWABLE TABLET PO (08:42)
[2021-11-28] MEDS: hydroCHLOROthiazide 12.5 MG CAPSULE PO (08:43)
[2021-11-28] MEDS: POTASSIUM CHLORIDE 10 MEQ TABLET.ER PO (08:43)
[2021-11-28] MEDS: FUROSEMIDE 40 MG TABLET PO (08:43)
[2021-11-28] MEDS: SACUBITRIL/VALSARTAN 49-51 MG TABLET 1 TABLET PO (08:43)
[2021-11-28 09:00] VITALS: O2SAT 100
[2021-11-28 09:02] VITALS: O2SAT 96
[2021-11-28 10:43] LABS: EDCOVIDSCREEN Negative (Negative)
--- NOTE | 2021-11-28 11:09 | PC.NURSE ---
call placed to facility- [facility] for report. the nurse receiving report stated that pt did not have a freeman cath in place at senior living and request if i can get it removed before arriving at facility. call placed to provider, provider stated if pt did not have one at facility to go ahead and remove freeman and make sure pt voids prior to leaving hospital.
== END 2021-11-28 14:20 | DRG 194 ==
LOC: ANHED 16:50 → ANHIMU 20:00 → ANH3MEDSUR 11-25 17:45
PROVIDERS: Internal Medicine; Physician Assistant; Admitting Provider Family Medicine; Emergency Provider Emergency Medicine; PCP Internal Medicine; Visit Provider Student in an Organized Health Care Education/Training Program
DX: I13.0 Hypertensive heart and chronic kidney disease with heart failure and stage 1 through stage 4 chronic kidney disease, or unspecified chronic kidney disease (principal); I50.23 Acute on chronic systolic (congestive) heart failure; J96.21 Acute and chronic respiratory failure with hypoxia; I16.0 Hypertensive urgency; E11.22 Type 2 diabetes mellitus with diabetic chronic kidney disease; N18.9 Chronic kidney disease, unspecified; R91.8 Other nonspecific abnormal finding of lung field; J44.9 Chronic obstructive pulmonary disease, unspecified; K21.9 Gastro-esophageal reflux disease without esophagitis; E78.5 Hyperlipidemia, unspecified; D50.9 Iron deficiency anemia, unspecified; E55.9 Vitamin D deficiency, unspecified; E66.01 Morbid (severe) obesity due to excess calories; Z68.43 Body mass index [BMI] 50.0-59.9, adult; Z86.73 Personal history of transient ischemic attack (TIA), and cerebral infarction without residual deficits; Z89.611 Acquired absence of right leg above knee; Z87.891 Personal history of nicotine dependence
CPT/HCPCS: 36415; 36600; 71045; 71046; 76705; 80048; 80053; 80074; 80076; 81001; 82805; 82948; 83605; 83735; 83880; 84145; 84484; 85025; 85610; 85730; 86140; 87040; 87426; 87449; 87899; 93005; 94002; 94003; 94660; 94762; 96374; 99285; A9270; C9803; J0456; J0696; J1650; J1940; U0003; U0005

== ENCOUNTER 2023-04-15 09:41 | Inpatient (IN) | payer BC, SELFPAY ==
[2023-04-15] VITALS (30 sets, daily range): BP systolic 129–199; BP diastolic 82–122; PULSE 65–141; RESP 13–34; TEMP 36.4–38.1; O2SAT 80–100; BMI 47.5
--- NOTE | ~2023-04-15 | XR_ITS ---
XR chest 1V portable 04/23/2023 10:35 Indication: Respiratory failure Procedure: AP portable chest Comparison: Comparison to multiple prior studies sequentially, with oldest reviewed study dated 04/07. Findings: Cardiomegaly. Central line tip near the cavoatrial junction. Bilateral airspace disease may represent edema or pneumonia. No pleural effusion or pneumothorax. Impression: 1: Bilateral airspace disease may represent edema or pneumonia. 2: Cardiomegaly. Reviewed, dictated and finalized at location A. RANCE AND BENEFITS CLERK Impression: 1: Bilateral airspace disease may represent edema or pneumonia. 2: Cardiomegaly.
--- NOTE | ~2023-04-15 | XR_ITS ---
EXAMINATION: XR chest 1V portable 04/30/2023 13:22 INDICATION: Evaluate pulmonary edema. PROCEDURE: AP portable chest COMPARISON: Comparison to multiple prior studies sequentially, with oldest reviewed study dated 04/07. FINDINGS: The lungs are clear. Interval resolution of edema. The cardiomediastinal silhouette is enla rged. There are no pleural effusions. There is no pneumothorax suspected. IMPRESSION: 1: NO ACUTE CARDIOPULMONARY DISEASE. Reviewed, dictated and finalized at location A. BUCKER
--- NOTE | ~2023-04-15 | XR_ITS ---
Portable chest x-ray Comparison: 04/19/2023 Clinical History: Respiratory failure Findings: Endotracheal tube, NG tube, and right IJ line are in place. Stable left lower lobe consoli dation and small left pleural effusion. Cardiomediastinal silhouette is stable. Bones and soft tissu es are unremarkable. Impression: Small left pleural effusion with left lower lobe atelectasis versus pneumonia. Support tubes, as above. Reviewed, dictated and finalized at location . FACTURING RECRUITER Impression: Small left pleural effusion with left lower lobe atelectasis versus pneumonia. Support tubes, as above.
--- NOTE | ~2023-04-15 | XR_ITS ---
EXAMINATION: XR chest 1V portable INDICATION: Increasing shortness of breath TECHNIQUE: Portable AP chest at 1557 hours COMPARISON: 04/23/2023 FINDINGS: A right internal jugular catheter ends with its tip in the proximal right atrium. Cardiomeg shruthi is noted. There are persistent but decreased bilateral interstitial opacities. No pleural effusio n or pneumothorax. IMPRESSION: 1. Cardiomegaly with improving pulmonary edema and/or pneumonia. Reviewed, dictated and finalized at location L. STANT IMPORT MANAGER
--- NOTE | ~2023-04-15 | XR_ITS ---
Portable chest x-ray Comparison: 04/16/2023 Clinical History: Respiratory failure Findings: Endotracheal tube, NG tube, and right IJ line remain in place. There is small to moderate left pleural effusion with probable left lower lobe consolidation. There is mild haziness in the aera melania lungs. Cardiomediastinal silhouette is stable. Bones and soft tissues are unremarkable. Impression: [id number] left pleural effusion with probable left lower lobe atelectasis. Coracoclavicular p neumonia. Mild probable background pulmonary edema pattern. Support tubes, as above. Reviewed, dictated and finalized at location . OWS ADMIN Impression: [id number] left pleural effusion with probable left lower lobe atelectas is. Coracoclavicular pneumonia. Mild probable background pulmonary edema pattern. Support tubes, as above.
--- NOTE | ~2023-04-15 | CT_ITS ---
EXAMINATION: CT brain wo con INDICATION: Seizure COMPARISON: 08/26/2021 TECHNIQUE: Standard unenhanced head CT. The dose-length product (DLP) was 1210.67 mGy-cm. The mA was adjusted according to patient size. Iterative reconstruction technique was employed. FINDINGS: No intracranial hemorrhage, acute infarction, or abnormal mass lesion. Again noted is a lar ge area of encephalomalacia in the left frontal lobe with small areas of encephalomalacia seen in the right periventricular frontal lobe and inferiorly in the frontal lobes. The ventricles are normal. N o abnormal mass effect or midline shift. The basal cisterns are patent. The orbits are normal. There is mild mucosal thickening of the paranasal sinuses. IMPRESSION: 1. Areas of prior infarction without acute intracranial abnormality. Reviewed, dictated and finalized at location F. EM ADMINISTRATION ADVISOR
--- NOTE | ~2023-04-15 | XR_ITS ---
Portable chest x-ray Comparison: 04/18/2023 Clinical History: Respiratory failure Findings: Endotracheal tube, NG tube, and right IJ line are in place. Small left pleural effusion pr esent with left basilar consolidation. Minimal haziness right lung base present. Cardiomediastinal s ilhouette is stable. Bones and soft tissues are unremarkable. Impression: No interval change. Stable support tubes. Small left pleural effusion with left basilar pulmonary edema/atelectasis versus pneumonia. Minimal pulmonary edema versus pneumonia the right lung base. Reviewed, dictated and finalized at location M. CTOR INBOUND SALES Impression: No interval change. Stable support tubes. Small left pleural effusion with left basilar pulmonary edema/atelectasis versu s pneumonia. Minimal pulmonary edema versus pneumonia the right lung base.
--- NOTE | ~2023-04-15 | XR_ITS ---
EXAMINATION: XR abdomen gastric tube insert INDICATION: OG tube placement TECHNIQUE: Portable AP KUB-[id number] at 1010 hours COMPARISON: None available FINDINGS: The OG tube is in the stomach. The bowel gas pattern is nonspecific. There are airspace opa cities of the visualized lung bases. IMPRESSION: 1. OG tube in the stomach. Reviewed, dictated and finalized at location F. HBORHOOD AIDE IMPRESSION: 1. OG tube in the stomach.
--- NOTE | ~2023-04-15 | XR_ITS ---
EXAMINATION: XR chest 1V portable INDICATION: Central line insertion TECHNIQUE: Portable AP chest at 0238 hours COMPARISON: 04/15/2023 FINDINGS: The endotracheal tube ends approximately 8 mm above the deepti. The nasogastric tube is fol lowed as far as the stomach. Its tip is beyond the inferior margin of the radiograph. A right interna l jugular central venous catheter is been inserted which ends with its tip in the proximal right atri um. No pleural effusion or pneumothorax. There are persistent opacities throughout the right lung wit h slight improvement. Airspace opacities in the left mid and lower lung zones are not significantly c hanged. The cardiomediastinal silhouette is stable. IMPRESSION: 1. Right internal jugular central venous catheter ending with its tip in the proximal right atrium. N o pneumothorax. 2. Diffuse lung disease throughout the right lung and in the left mid and lower lung zones with sligh t improvement on the right, consistent with pulmonary edema and/or pneumonia. 3. Endotracheal tube remains within 1 cm of the deepti. Consider repositioning. Reviewed, dictated and finalized at location F. NT CUTTER IMPRESSION: 1. Right internal jugular central venous catheter ending with its tip in the pr oximal right atrium. No pneumothorax. 2. Diffuse lung disease throughout the right lung and in the left mid and lower lung zones with slight improvement on the right, consistent with pulmonary lizeth ma and/or pneumonia. 3. Endotracheal tube remains within 1 cm of the deepti. Consider repositioning.
--- NOTE | ~2023-04-15 | XR_ITS ---
EXAMINATION: XR chest ET placement INDICATION: Respiratory distress TECHNIQUE: Portable AP chest at 1007 hours COMPARISON: 11/26/2021 FINDINGS: The endotracheal tube ends 6 mm above the deepti. There are airspace opacities throughout t he right lung and in the left mid and lower lung zones. No pleural effusion or pneumothorax. The card iomediastinal silhouette is stable. IMPRESSION: 1. Endotracheal tube 6 mm above the deepti. Consider repositioning. 2. Diffuse lung disease throughout the right lung and in the left mid and lower lung zones, consisten t with pulmonary edema Cherise/or pneumonia. Reviewed, dictated and finalized at location F. DEVELOPMENT MANAGER IMPRESSION: 1. Endotracheal tube 6 mm above the deepti. Consider repositioning. 2. Diffuse lung disease throughout the right lung and in the left mid and lower lung zones, consistent with pulmonary edema Cherise/or pneumonia.
--- NOTE | ~2023-04-15 | XR_ITS ---
Portable chest x-ray Comparison: 04/17/2023 Clinical History: Respiratory failure Findings: Endotracheal tube, NG tube, and right IJ line are in satisfactory positions. Small left pl eural effusion present. There is retrocardiac airspace disease, with minimal haziness right lung base . Cardiomediastinal silhouette is stable. Bones and soft tissues are unremarkable. Impression: Small left pleural effusion with left lower lobe atelectasis and/or pneumonia. Correlate clinically. Minimal haziness right lung base, which could reflect additional minimal pulmonary edema versus pneum onia. Reviewed, dictated and finalized at [facility] [place]. RAL ROAD SUPERVISOR Impression: Small left pleural effusion with left lower lobe atelectasis and/or pneumonia. Correlate clinically. Minimal haziness right lung base, which could reflect additional minimal pulmon gene edema versus pneumonia.
--- NOTE | ~2023-04-15 | XR_ITS ---
EXAMINATION: XR chest ET placement INDICATION: Reintubation TECHNIQUE: Portable AP chest at 1143 hours COMPARISON: 0238 hours FINDINGS: The endotracheal tube ends approximately 2.8 cm above the deepti. The nasogastric tube is f ollowed as far as the stomach. Its tip is beyond the inferior margin of the radiograph. A right inter nal jugular central venous catheter ends with its tip in the proximal right atrium. No pleural effusi on or pneumothorax. Airspace opacities throughout the right lung persist but have improved. There are stable airspace opacities of the left mid and lower lung zones. Cardiomegaly is noted. IMPRESSION: 1. Endotracheal tube approximately 2.8 cm above the deepti. 2. Diffuse lung disease with improvement in the right lung, consistent with pulmonary edema and/or pn eumonia. Reviewed, dictated and finalized at location F. HALMIC LENS INSPECTOR IMPRESSION: 1. Endotracheal tube approximately 2.8 cm above the deepti. 2. Diffuse lung disease with improvement in the right lung, consistent with pul monary edema and/or pneumonia.
--- NOTE | ~2023-04-15 | US_ITS ---
EXAMINATION: US renal BI DATE: 04/16/2023 12:16 INDICATION: ARMIN TECHNIQUE: Multiple grayscale and Doppler ultrasound images of the kidneys were obtained. COMPARISON: None. FINDINGS: The right kidney measures 9.8 x 5.0 x 5.9 cm. The left kidney is incompletely visualized, superior po le not seen, and therefore not measured. The kidneys demonstrate increased parenchymal echogenicity. There is no hydronephrosis. The bladder is normal. IMPRESSION: Incomplete visualization of the left kidney. Findings suggestive of medical renal disease. Reviewed, dictated and finalized at location K. SLOT TECHNICIAN IMPRESSION: Incomplete visualization of the left kidney. Findings suggestive of medical lissa al disease.
--- NOTE | 2023-04-15 09:43 | PC.NURSE ---
Pt had active sz during EDP assessment, gave VORB for 5 VERSED, dc'd due to pt not actively seizing at this time. Setting up for intubation at this time.
--- NOTE | 2023-04-15 09:49 | ECG_ITS ---
Measurements Intervals [place] Rate: 120 P: 81 AK: 180 QRS: 22 QRSD: 148 T: 32 QT: 356 QTc: 504 Interpretive Statements SINUS TACHYCARDIA INTRAVENTRICULAR CONDUCTION DELAY Electronically Signed On 04-16-2023 10:20:33 PATTERNMAKER [employer] by Stas Singh M.D.
--- NOTE | 2023-04-15 09:54 | PC.NURSE ---
Nitro paste ordered per EDP Dr Vincent and applied as ordered. 20 Etomidate and 100 ROCC pulled up as requested by EDP Dr Vincent to use IVP on pt for intubation.
--- NOTE | 2023-04-15 09:57 | PC.NURSE ---
Pt given 20 Etomidate, [address] Vincent who is intubating pt.
[2023-04-15] MEDS: NITROGLYCERIN OINTMENT 1 INCH DOSE 0.5 INCH TRANSDERM (09:59)
--- NOTE | 2023-04-15 09:59 | PC.NURSE ---
Pt intubated with +color change, equal breath sounds, 24 at the lips, tube size 8.0
[2023-04-15] MEDS: MIDAZOLAM 100MG/NS 100ML(*CRX) 100 MG/100 ML BAG IV CONT ×2 (10:10→15:00)
[2023-04-15] MEDS: FENTANYL 2,500MCG/NS250ML(*CRX 2,500 MCG/250 ML BAG IV CONT (10:11)
--- NOTE | 2023-04-15 10:17 | ED.SOB ---
HPI - SOB/Dyspnea General Chief Complaint: Shortness of Breath/Dyspnea Stated Complaint: resp distress, COVID+ History of Present Illness HPI Narrative: HPI limited due to patient's acuity of symptoms This is a 52-year-old female, with history of COPD, CHF and recent COVID diagnosis 2 days ago, brought in by EMS for dyspnea. EMS reports they were called to the patient's alf for shortness of breath. On arrival the patient appeared to be in respiratory distress with O2 sats in the low 80s on room air. She was placed on a CPAP with only moderate improvement to the high 80s. Related Data Home Medications Medication Instructions Recorded Confirmed acetaminophen 325 mg tablet 650 mg PO Q6H PRN Pain (Scale 08/26/21 04/15/23 (Tylenol) Score 1-3) aspirin 81 mg chewable tablet 81 mg PO DAILY 08/26/21 04/15/23 (Aspirin Childrens) atorvastatin 80 mg tablet (Lipitor) 80 mg PO HS 08/26/21 04/15/23 benzonatate 200 mg capsule 200 mg PO Q8H PRN Cough 08/26/21 04/15/23 calcium carb-vit D3-minerals 600 2 tablet PO DAILY 08/26/21 04/15/23 mg calcium-400 unit tablet clonidine HCl 0.2 mg tablet 0.2 mg PO TID 08/26/21 04/15/23 ergocalciferol (vitamin D2) 1,250 50,000 unit PO WEEKLY 08/26/21 04/15/23 mcg (50,000 unit) capsule (Vitamin D2) ferrous sulfate 325 mg (65 mg 325 mg PO BID 08/26/21 04/15/23 iron) tablet furosemide 40 mg tablet (Lasix) 40 mg PO DAILY 08/26/21 04/15/23 ipratropium 0.5 mg-albuterol 3 mg 0.5 mg inhalation BID PRN 08/26/21 04/15/23 (2.5 mg base)/3 mL nebulization Shortness Of Breath Or Wheezing soln isosorbide mononitrate 30 mg 30 mg PO DAILY 08/26/21 04/15/23 tablet,extended release 24 hr losartan 100 1 tablet PO DAILY 08/26/21 04/15/23 mg-hydrochlorothiazide 12.5 mg tablet nifedipine 60 mg tablet,extended 60 mg PO HS 08/26/21 04/15/23 release phenytoin 100 mg/4 mL oral 200 mg PO DAILY 08/26/21 04/15/23 suspension escitalopram oxalate 10 mg tablet 1 tablet PO DAILY 10/30/21 04/15/23 phenytoin 100 mg/4 mL oral 200 mg PO QPM 10/30/21 04/15/23 suspension potassium chloride 10 mEq 10 meq PO DAILY 10/30/21 04/15/23 capsule,extended release spironolactone 25 mg tablet 1 tablet PO DAILY 10/30/21 04/15/23 nystatin 100,000 unit/gram topical 1 applic topical PRN PRN Rash 11/22/21 04/15/23 powder labetalol 200 mg tablet 200 mg PO BID 04/15/23 04/15/23 Allergies Allergy/AdvReac Type Severity Reaction Status Date / Time No Known Allergies Allergy Verified 11/22/21 16:08 Review of Systems Review of Systems: Unable to review systems, patient unresponsive [facility] Past Medical History Medical History Asthma-COPD overlap syndrome Cerebrovascular accident Congestive heart failure Echocardiogram in October 2021 showed left ventricular hypertrophy with moderate left ventricular dilation and significant systolic dysfunction with an EF estimated 25 to 30%, grade 1 diastolic dysfunction, and mild right ventricular enlargement with biatrial dilation. Gastroesophageal reflux disease Hyperlipidemia Hypertension Intellectual disability Iron deficiency anemia Vitamin D deficiency Surgical History Surgical History History of right above knee amputation Family History Family History Father Congestive heart failure Hypertension Mother Congestive heart failure Hypertension Social History Social History Social History: Surrogate decision maker: Laxmi Marrero, aunt. Code status: Full code. Smoking packs per day: 1 Smoking cigarettes per day: 20.0 Years smoked: 20 Smoking pack-years: 20.00 Smoking status: Former smoker Alcohol intake: unknown Substance use: unknown Substance use type: does not use Additional living arrangements comment
[2023-04-15 10:19] LABS: Hematocrit 35.6 % (37.0-47.0); Hemoglobin 10.4 g/dL (12.0-15.0); Mean Corpuscular HGB Conc 29.2 g/dl (32-36); Mean Corpuscular Hemoglobin 28.6 pg (26-34); Mean Corpuscular Volume 97.8 fl (80-100); Mean Platelet Volume 12.1 fl (7.4-10.4); Platelet Count Result 249 k/mm3 (150-375); Red Blood Count 3.64 M/mm3 (4.2-5.4); Red Cell Distribution Width 14.7 % (11.5-14.5); White Blood Count 16.8 K/mm3 (4.5-10.0)
[2023-04-15 10:38] LABS: Alanine Aminotransferase 24 U/L (6-35); Albumin Level 4.3 g/dL (3.5-5.1); Alkaline Phosphatase 183 U/L (38-126); Anion Gap 11 mmol/L (8-16); Aspartate Amino Transferase 25 U/L (14-36); Bilirubin,Total 0.4 mg/dL (0.2-1.3); Blood Urea Nitrogen 43 mg/dL (7-17); Carbon Dioxide 22 mmol/L (22-30); Chloride 111 mmol/L (98-107); Estimated Glomerular Filt Rate 18; Glucose 277 mg/dL (65-110); Potassium 5.7 mmol/L (3.4-5.0); Sodium 144 mmol/L (137-145)
[2023-04-15 10:40] LABS: CRP 2.9 mg/dL (<1.0); Lipase 379 U/L (23-300)
[2023-04-15 10:47] LABS: Basophils Absolute Manual 0.33 K/mm3 (0.0-0.1); Basophils Percent Manual 2 % (0-1); Eosinophils Percent Manual 3 % (0-4); Lymphocytes Absolute Manual 7.72 K/mm3 (1.1-4.5); Monocytes Absolute Manual 1.84 K/mm3 (0.1-0.90); Monocytes Percent Manual 11 % (3-9); Neutrophils Percent Manual 38 % (46-73); Platelet Estimate Adequate (Adequate); Schistocytes None Seen (NORMAL); Total Cells Counted 100
[2023-04-15 10:55] LABS: Lactic Acid Reflex 2.3 mmol/L (0.7-2.0)
[2023-04-15 11:00] LABS: NT Pro B Type Natriuretic Pept 6500 pg/mL (19.9-100); Troponin I 0.038 ng/mL (0.000-0.034)
[2023-04-15 11:04] LABS: INR 1.2; Prothrombin Time 16.1 Seconds (11.1-14.7)
[2023-04-15 11:05] LABS: Partial Thromboplastin Time 35.3 SECONDS (22.3-36.8)
[2023-04-15 11:16] LABS: Alveolar/Arterial O2 Gradient 579.7 mmHg; Base Excess ABG -4.6 mEq/l (+/-2.0); Carboxyhemoglobin 0.3 % THb (0-2.0); Fractional Inspired Oxygen 100 %; HCO3 ABG 23.1 mEq/l (22.0-26.0); Methemoglobin ABG 0.3 %THb (0-1.5); Oxygen Content ABG 13.6 %vol (16.0-22.0); Oxygen Saturation ABG 93.2 % (95.0-100.0); Oxyhemoglobin 92.3 % THb (90.0-100.0); PCO2 ABG 55.1 mmHg (35.0-45.0); PO2 ABG 78.2 mmHg (80.0-100.0); PO2 FiO2 Ratio Arterial Blood 0.78 %; Reduced Hemoglobin 7.1 %THb (0-5.0); Total Hemoglobin 10.4 g/dL (12.0-18.0)
[2023-04-15 11:17] LABS: Arterial Blood Gas PEEP 7 cmH2O; Arterial Blood Gas Tidal Volume 450 ml; Arterial Blood Gas Vent Mode CMV; Arterial Blood Gas Ventilator rate 20 /MIN; Device VENTILATOR; Modified Allen's Test Pass; Site Drawn RIGHT RADIAL
[2023-04-15] MEDS: FUROSEMIDE INJ 40 MG/4 ML VIAL IV PUSH (11:49)
[2023-04-15] MEDS: fentaNYL CITRATE INJ (*CRX) 100 MCG/2 ML VIAL (11:49)
[2023-04-15] MEDS: MIDAZOLAM HCL (*CRX) 2 MG/2 ML VIAL (11:49)
[2023-04-15] MEDS: AZITHROMYCIN 500 MG/NS 250 ML 500 MG/250 ML BAG 250 MG IVPB (11:50)
--- NOTE | 2023-04-15 11:51 | PC.NURSE ---
0.5 inch nitro paste removed per VORB EDP Dr Vincent due to BP 133/84 at this time.
--- NOTE | 2023-04-15 12:51 | WPDCNINT ---
Assessment and Plan Assessment and plan (1) Acute and chronic respiratory failure with hypoxia: Code(s): J96.21 - Acute and chronic respiratory failure with hypoxia Status: Acute Assessment and Plan: Acute on chronic multifactorial Respiratory failure secondary to congestive heart failure, COPD, , possible community-acquired pneumonia COVID-19 pneumonia Patient now intubated and sedated and on mechanical ventilation Continue full mechanical ventilation support to prevent hypoxemia/hypercarbia and end organ damage. Chest x-ray reviewed. Chest CT pending ABG reviewed. Increase PEEP to 12. Adjusted the IE ratio to bring the peak pressures down FiO2 decreased to 75% Dexamethasone, bronchodilators, empiric antibiotics for community-acquired pneumonia Patient received a dose of Lasix in the ER. Further diuretics depends on hemodynamics and response (2) Acute exacerbation of congestive heart failure: Code(s): I50.9 - Heart failure, unspecified Status: Acute Assessment and Plan: Most recent echo 10/27 showed EF of 25-30% and diastolic dysfunction Will repeat echo (3) AMS (altered mental status): Qualifiers: Altered mental status type: somnolence Qualified Code(s): R40.0 - Somnolence Code(s): R41.82 - Altered mental status, unspecified Status: Acute Assessment and Plan: Secondary to hypoxia seizure Head CT shows old infarctions Check TSH and ammonia Now sedated and intubated (4) Acute exacerbation of chronic obstructive airways disease: Code(s): J44.1 - Chronic obstructive pulmonary disease with (acute) exacerbation Status: Acute Assessment and Plan: See above (5) Pneumonia: Code(s): J18.9 - Pneumonia, unspecified organism Status: Acute Assessment and Plan: See above (6) COVID-19: Code(s): U07.1 - COVID-19 Status: Acute Assessment and Plan: Tested positive for COVID-19 although respiratory failure appears multifactorial with most likely component of CHF COPD Dexamethasone and remdesivir Isolation (7) Acute on chronic renal failure: Code(s): N17.9 - Acute kidney failure, unspecified; N18.9 - Chronic kidney disease, unspecified Status: Acute Assessment and Plan: Patient appears to have chronic kidney disease and creatinine is now elevated. Multifactorial Check renal ultrasound Check CK and urine electrolytes Will give a small fluid bolus and maintain mean arterial pressure. Monitor urine output electrolytes and creatinine At risk for needing VETERINARY LABORATORY DIAGNOSTICIAN (8) Hyperkalemia: Code(s): E87.5 - Hyperkalemia Status: Acute Assessment and Plan: Secondary to ARMIN, supplemental potassium, Aldactone and acidosis DC potassium and Aldactone Adjusted went to treat for acidosis. repeat BMP ordered Plan DVT prophylaxis -Lovenox Stress ulcer prophylaxis -PPI Nutrition - NPO Code Status - Full Code Total Critical Care Time - 40 minutes Due to a high probability of clinically significant, life threatening deterioration, the patient required my highest level of preparedness to intervene emergently and I personally spent this critical care time directly and personally managing the patient. This critical care time included obtaining a history; examining the patient; pulse oximetry; ordering and review of studies; arranging urgent treatment with development of a management plan; evaluation of patient's response to treatment; frequent reassessment; and discussions with other providers. It was exclusive of separately billable procedures and treating other patients and teaching time. Please see Assessment and Plan section and the rest of the note for further information on patient assessment and treatment Instructional Systems Design Consultant Consult Note Consult date: 04/16/23 Reason for consult: Acute respiratory failure HPI: Mirela Preston is a 52 year old female with past medical history of COPD, CHF and rece
--- NOTE | 2023-04-15 13:22 | PC.NURSE ---
BS 110
[2023-04-15 13:25] LABS: Glucose Point of Care 110 mg/dl (65-105)
[2023-04-15 13:31] LABS: Anion Gap 6 mmol/L (8-16); Blood Urea Nitrogen 45 mg/dL (7-17); Calcium 8.2 mg/dL (8.4-10.2); Carbon Dioxide 23 mmol/L (22-30); Chloride 115 mmol/L (98-107); Creatine Kinase 152 U/L (30-135); Estimated CRCL calculation 30 ml/min; Estimated Glomerular Filt Rate 18; Glucose 131 mg/dL (65-110); Potassium 4.9 mmol/L (3.4-5.0); Sodium 144 mmol/L (137-145)
[2023-04-15 13:39] LABS: Creatinine Urine 96.2 mg/dL
[2023-04-15 13:41] LABS: Reflex Lactic Acid Yes or No Add Lactic
[2023-04-15 13:45] LABS: Alveolar/Arterial O2 Gradient 492.9 mmHg; Arterial Blood Gas Vent Mode CMV; Arterial Blood Gas Ventilator rate 24 /MIN; Base Excess ABG -1.7 mEq/l (+/-2.0); Device VENTILATOR; Fractional Inspired Oxygen 90 %; HCO3 ABG 23.9 mEq/l (22.0-26.0); Modified Allen's Test Pass; Oxygen Content ABG 14.2 %vol (16.0-22.0); Oxygen Saturation ABG 97.5 % (95.0-100.0); Oxyhemoglobin 96.6 % THb (90.0-100.0); PCO2 ABG 44.2 mmHg (35.0-45.0); PO2 ABG 103.5 mmHg (80.0-100.0); PO2 FiO2 Ratio Arterial Blood 1.15 %; Site Drawn RIGHT RADIAL; Total Hemoglobin 10.3 g/dL (12.0-18.0); pH ABG 7.351 (7.350-7.450)
[2023-04-15 13:46] LABS: Arterial Blood Gas PEEP 7 cmH2O; Arterial Blood Gas Tidal Volume 450 ml
[2023-04-15 14:03] LABS: Procalcitonin 0.3 ng/mL
--- NOTE | 2023-04-15 14:14 | ECG_ITS ---
Measurements Intervals [place] Rate: 133 P: 63 VA: 199 QRS: 35 QRSD: 155 T: 73 QT: 335 QTc: 498 Interpretive Statements SINUS TACHYCARDIA, POSSIBLE ATRIAL FLUTTER INTRAVENTRICULAR CONDUCTION DELAY Electronically Signed On 04-16-2023 10:21:48 MAINTENANCE DIRECTOR by Stas Singh M.D.
[2023-04-15 14:47] LABS: Influenza A QL RT-PCR Negative (Negative); Influenza B QL RT-PCR Negative (Negative); RSV RNA, RT-PCR Negative (Negative); SARS-CoV-2 RNA PCR Positive (Negative)
[2023-04-15 14:58] LABS: Lactic Acid 1.2 mmol/L (0.7-2.0)
[2023-04-15] MEDS: FENTANYL 2,500MCG/NS250ML(*CRX 2,500 MCG/250 ML BAG 7.5 MCG IV CONT (15:00)
--- NOTE | 2023-04-15 15:00 | ADMGEN ---
This patient, Mirela Preston, was admitted to Intensive Care Unit-1. Patient/family oriented to hospital policies and general routines including ID bracelet, bed and alarms, visiting hours, pain management, procedures, bathroom and other care routines, personal items, smoking policy, room service/diet, and visiting hours. Information on how to activate the Rapid Response Team has been discussed. Patient/Family are encouraged to report perceived risks to care and to ask questions if they do not understand what they are told or what they should do.
[2023-04-15] MEDS: REMDESIVIR 200 MG/NS 250 ML 200 MG/250 ML BAG 250 MG IVPB (15:27)
--- NOTE | 2023-04-15 16:13 | ADMGEN ---
This patient, Mirela Preston, was admitted to Intensive Care Unit-1 at 1500. Patient/family oriented to hospital policies and general routines including ID bracelet, bed and alarms, visiting hours, pain management, procedures, bathroom and other care routines, personal items, smoking policy, room service/diet, and visiting hours. Information on how to activate the Rapid Response Team has been discussed. Patient/Family are encouraged to report perceived risks to care and to ask questions if they do not understand what they are told or what they should do.
--- NOTE | 2023-04-15 16:52 | PM.IMHP ---
H&P: HPI History of Present Illness Date/Time: 04/15/23 16:52 Chief Complaint: COVID, Respiratory Distress Narrative: 52 y/o F presented here with respiratory distress and COVID+ with PMH of asthma/COPD, CHF, seizures, GERD, HLD, HTN, CAROLYNN, and vitamin D deficiency. Patient presented here from [facility] for hypoxia, low 80's on RA. Patient tested positive for COVID on 04/13. While awaiting EMS, facility provided patient with neb. After arrival, EMS placed patient on CPAP in route to the ED without much improvement, arrived with sat of 80%. Shortly after arrival, patient had seizure that lasted approximately 45 seconds, broke without pharmacological intervention. Patient was then intubated for airway protection and hypoxia. Workup revealed ARMIN of 3.3 (baseline 1.4), BNP 6500, lactate 2.3, and blood gas showed acidosis and hypoxia. CXR showed pulmonary edema v PNA. Review of Systems Review of Systems: ROS unobtainable: Yes unobtainable due to endotracheal tube PMFSH Past Medical History Medical History Asthma-COPD overlap syndrome Cerebrovascular accident Chronic kidney disease Congestive heart failure Echocardiogram in October 2021 showed left ventricular hypertrophy with moderate left ventricular dilation and significant systolic dysfunction with an EF estimated 25 to 30%, grade 1 diastolic dysfunction, and mild right ventricular enlargement with biatrial dilation. Gastroesophageal reflux disease Hyperlipidemia Hypertension Intellectual disability Iron deficiency anemia Seizure Vitamin D deficiency Surgical History Surgical History History of right above knee amputation Family History Family History Father Congestive heart failure Hypertension Mother Congestive heart failure Hypertension Social History Social History Social History: Surrogate decision maker: Laxmi Marrero, aunt. Code status: Full code. Smoking packs per day: 1 Smoking cigarettes per day: 20.0 Years smoked: 20 Smoking pack-years: 20.00 Smoking status: Former smoker Alcohol intake: unknown Substance use: unknown Substance use type: does not use Additional living arrangements comments: Resident at [facility]. Additional occupation/education comments: Disabled. Spiritual care concerns: No Meds Home Medications and Allergies Home Medications Medication Instructions Recorded Confirmed Type acetaminophen 325 mg tablet 650 mg PO Q6H PRN Pain (Scale 08/26/21 04/15/23 History (Tylenol) Score 1-3) aspirin 81 mg chewable tablet 81 mg PO DAILY 08/26/21 04/15/23 History (Aspirin Childrens) atorvastatin 80 mg tablet (Lipitor) 80 mg PO HS 08/26/21 04/15/23 History benzonatate 200 mg capsule 200 mg PO Q8H PRN Cough 08/26/21 04/15/23 History calcium carb-vit D3-minerals 600 2 tablet PO DAILY 08/26/21 04/15/23 History mg calcium-400 unit tablet clonidine HCl 0.2 mg tablet 0.2 mg PO TID 08/26/21 04/15/23 History ergocalciferol (vitamin D2) 1,250 50,000 unit PO WEEKLY 08/26/21 04/15/23 History mcg (50,000 unit) capsule (Vitamin D2) ferrous sulfate 325 mg (65 mg 325 mg PO BID 08/26/21 04/15/23 History iron) tablet furosemide 40 mg tablet (Lasix) 40 mg PO DAILY 08/26/21 04/15/23 History ipratropium 0.5 mg-albuterol 3 mg 0.5 mg inhalation BID PRN 08/26/21 04/15/23 History (2.5 mg base)/3 mL nebulization Shortness Of Breath Or Wheezing soln isosorbide mononitrate 30 mg 30 mg PO DAILY 08/26/21 04/15/23 History tablet,extended release 24 hr losartan 100 1 tablet PO DAILY 08/26/21 04/15/23 History mg-hydrochlorothiazide 12.5 mg tablet nifedipine 60 mg tablet,extended 60 mg PO HS 08/26/21 04/15/23 History release phenytoin 100 mg/4
[2023-04-15] MEDS: DOXYCYCLINE 100 MG/NS 100 ML 100 MG/100 ML BAG IVPB (18:02)
[2023-04-15 18:18] LABS: Glucose Point of Care 76 mg/dl (65-105)
[2023-04-15] MEDS: cefTRIAXone 2 GM/NS 100 ML 2 GM/100 ML BAG IVPB (20:04)
[2023-04-15] MEDS: MINERAL OIL/WHITE PETROLATUM OINTMENT 1 APPLIC EACH EYE (20:04)
[2023-04-15 21:25] LABS: Glucose Point of Care 92 mg/dl (65-105)
[2023-04-15] MEDS: HEPARIN SOD/D5W 100 UNITS/ML 25,000 UNITS/250 ML BAG 10 UNITS IV CONT (22:29)
[2023-04-16] VITALS (34 sets, daily range): BP systolic 108–152; BP diastolic 70–119; PULSE 83–159; RESP 18–35; TEMP 37.4–38.7; O2SAT 95–100
[2023-04-16] MEDS: SODIUM CHLORIDE 0.9% IV 250 ML 999 ML IV CONT (00:05)
--- NOTE | 2023-04-16 00:08 | PC.NURSE ---
The patient was moving around and somewhat thrashing a few of the times I woke her up doing procedures in the room, or giving meds. As such the sedation was increased. Unfortunately she also appears to have moved her BP cuff and we have not been able to obtain consistent BPs since, despite moving the cuff around, trying new cuffs/sizes, and checking different sites. The patient's upper arms are too large for a large BP cuff and the forearms and calf are not giving consistent results (Some read abnormally low, some don't give readings at all.) Throughout the patient has not been hard to arouse and will squeeze hands appropriately. She also has a palpable pulse on radials and posterior tibial. The monitor was then reset, and the most recent BP was 133/101. Due to trouble obtaining BP, it has been decided we would start an arterial line. Both the patients contacts have been called to obtain consent without success. Will try again, but will proceed with emergent consent if necessary.
[2023-04-16] MEDS: MIDAZOLAM HCL (*CRX) 2 MG/2 ML VIAL 4 MG (01:09)
[2023-04-16] MEDS: MIDAZOLAM HCL (*CRX) 10 MG/2 ML VIAL 4 MG IV PUSH (01:42)
[2023-04-16] MEDS: fentaNYL CITRATE INJ (*CRX) 100 MCG/2 ML VIAL 150 MCG IV PUSH (02:17)
[2023-04-16] MEDS: DOXYCYCLINE 100 MG/NS 100 ML 100 MG/100 ML BAG IVPB ×2 (04:33→16:23)
[2023-04-16 04:54] LABS: Basophils Percent Auto 0.2 % (0.2-1.2); Eosinophils Absolute Auto 0.1 K/mm3 (0-0.3); Eosinophils Percent Auto 0.7 % (0-4.4); Hematocrit 23.5 % (37.0-47.0); Hemoglobin 7.1 g/dL (12.0-15.0); Immature Granulocyte Absolute 0.06 K/mm3 (0.00-0.031); Immature Granulocyte Percent A 0.7 % (0-0.5); Lymphocytes Absolute Auto 1.34 K/mm3 (0.9-3.2); Lymphocytes Percent Auto 14.7 % (18.3-44.2); Mean Corpuscular HGB Conc 30.2 g/dl (32-36); Mean Corpuscular Hemoglobin 28.7 pg (26-34); Mean Corpuscular Volume 95.1 fl (80-100); Mean Platelet Volume 10.4 fl (7.4-10.4); Monocytes Absolute Auto 0.6 K/mm3 (0.1-0.6); Monocytes Percent Auto 6.5 % (2.6-8.5); Neutrophils Percent Auto 77.2 % (45.5-73.1); Platelet Count Result 136 k/mm3 (150-375); Red Blood Count 2.47 M/mm3 (4.2-5.4); Red Cell Distribution Width 14.8 % (11.5-14.5); White Blood Count 9.1 K/mm3 (4.5-10.0)
[2023-04-16 05:09] LABS: Alanine Aminotransferase 16 U/L (6-35); Albumin Level 2.8 g/dL (3.5-5.1); Alkaline Phosphatase 113 U/L (38-126); Anion Gap 6 mmol/L (8-16); Aspartate Amino Transferase 26 U/L (14-36); Bilirubin,Total 0.3 mg/dL (0.2-1.3); Blood Urea Nitrogen 42 mg/dL (7-17); Calcium 7.2 mg/dL (8.4-10.2); Carbon Dioxide 20 mmol/L (22-30); Chloride 119 mmol/L (98-107); Estimated CRCL calculation 32 ml/min; Estimated Glomerular Filt Rate 19; Glucose 82 mg/dL (65-110); Magnesium 1.7 mg/dL (1.6-2.3); Partial Thromboplastin Time 62.7 SECONDS (22.3-36.8); Potassium 4.1 mmol/L (3.4-5.0); Sodium 145 mmol/L (137-145)
[2023-04-16] MEDS: HEPARIN SODIUM 5,000 UNITS/ML VIAL 4000 UNITS IV PUSH (05:26)
[2023-04-16 05:34] LABS: Base Excess ABG 1.2 mEq/l (+/-2.0); HCO3 ABG 23.5 mEq/l (22.0-26.0); PCO2 ABG 39.3 mmHg (35.0-45.0); PO2 ABG 126.5 mmHg (80.0-100.0); pH ABG 7.395 (7.350-7.450)
[2023-04-16 05:35] LABS: Oxygen Saturation ABG 98.5 % (95.0-100.0); Total Hemoglobin 10.6 g/dL (12.0-18.0)
[2023-04-16 05:36] LABS: Alveolar/Arterial O2 Gradient 258.1 mmHg; Carboxyhemoglobin 0.2 % THb (0-2.0); Methemoglobin ABG 0.3 %THb (0-1.5); Oxygen Content ABG 14.7 %vol (16.0-22.0); Oxyhemoglobin 97.1 % THb (90.0-100.0)
[2023-04-16 05:37] LABS: Device VENTILATOR; Fractional Inspired Oxygen 60 %; Modified Allen's Test Pass; PO2 FiO2 Ratio Arterial Blood 2.11 %; Reduced Hemoglobin 2.4 %THb (0-5.0); Site Drawn RIGHT RADIAL
[2023-04-16 05:38] LABS: Arterial Blood Gas Ventilator rate 20 /MIN
[2023-04-16 05:39] LABS: Arterial Blood Gas PEEP 7 cmH2O; Arterial Blood Gas Tidal Volume 450 ml; Arterial Blood Gas Vent Mode CMV
--- NOTE | 2023-04-16 05:56 | P.PCNBED_ITS ---
Procedures Central Line Placement Right IJ: Central Line Date: 04/16/23 Central Line Time: 02:20 Consent: I have discussed with the patient and/or surrogate, the non-emergent placement of a central venous catheter, including its clinical necessity/indication and associated potential risks and complications. The patient and/or surrogate understand(s) and acknowledge(s) the need to proceed with central venous catheter insertion as an important element of the patient's clinical management. Time Out Performed: Yes Patient Position: trendelenburg Patient placed on monitor/pulse ox: Yes Central line prep: 2% Chlorhexidine scrub Central line lumen inserted: triple [place]: 15 Length (cm): 15 Post Procedure: sutured in place, good blood return, all ports aspirated, flushed, capped, transparent dressing, hemostatic product, antimicrobial product, securement product and aseptic technique maintained throughout procedure Post procedure x-ray: tip of catheter in good position and no pneumothorax seen Patient tolerated procedure: well and no complications
--- NOTE | 2023-04-16 08:00 | ECG_ITS ---
Measurements Intervals [place] Rate: 106 P: 79 MA: 184 QRS: 8 QRSD: 133 T: 168 QT: 353 QTc: 471 Interpretive Statements SINUS TACHYCARDIA INTRAVENTRICULAR CONDUCTION DELAY [130+ ms QRS DURATION], LATERAL T-WAVE ABNORMALITY, CONSIDER ISCHEMIA ABNORMAL ECG Electronically Signed On 04-17-2023 12:37:53 BRIDGE WORKER by Norris Silverio M.D.
[2023-04-16] MEDS: MINERAL OIL/WHITE PETROLATUM OINTMENT 1 APPLIC EACH EYE ×2 (08:04→20:14)
[2023-04-16] MEDS: ATORVASTATIN 40 MG TABLET 80 MG FEED TUBE (08:07)
[2023-04-16] MEDS: PANTOPRAZOLE SODIUM IV 40 MG VIAL IV PUSH ×2 (08:07→20:12)
[2023-04-16] MEDS: ASPIRIN 81 MG CHEWABLE TABLET FEED TUBE (08:08)
[2023-04-16 08:36] LABS: Glucose Point of Care 91 mg/dl (65-105)
--- NOTE | 2023-04-16 08:43 | PM.IMPN ---
Progress Note: A&P Assessment and Plan (1) Acute and chronic respiratory failure with hypoxia: Code(s): J96.21 - Acute and chronic respiratory failure with hypoxia Status: Acute Assessment and Plan: Intubated and sedated. Will continue with vent support and Covid treatment. Monitor labs and cultures (2) Sepsis: Qualifiers: Sepsis type: sepsis due to unspecified organism Sepsis acute organ dysfunction status: with acute organ dysfunction Severe sepsis acute organ dysfunction type: acute renal failure Acute renal failure type: unspecified Code(s): A41.9 - Sepsis, unspecified organism Status: Acute Assessment and Plan: Meets SIRS criteria - temp 100.6F, tachy, tachypneic, with PNA as source, lactic acidosis, and evidence of organ dysfunction (ARMIN). Lactic 2.3 -> 1.2. Blood cultures drawn and pending. Suspect PNA as source (CAP v COVID). Atb started. Monitor labs and cultures, continue current treatment. (3) Elevated troponin: Code(s): R77.8 - Other specified abnormalities of plasma proteins Status: Acute Assessment and Plan: Suspect this is secondary to CHF exacerbation and ARMIN. Continue to trend troponin. Repeat EKG obtained. (4) COVID-19: Code(s): U07.1 - COVID-19 Status: Acute Assessment and Plan: Symptom onset - unknown tested positive for COVID on - 04/13 complicating comorbidities - COPD/asthma, CHF with current exacerbation intubated and sedated, trend ABGs CXR: diffuse lung disease throughout the right lung and in the left mid and lower lung zones, consistent with pulmonary edema and/or pneumonia. ESR ordered; CRP - 2.9 Continue Remdisivir and sterioids. (5) Pneumonia: Code(s): J18.9 - Pneumonia, unspecified organism Status: Acute Assessment and Plan: started on azithromycin, ceftriaxone, and doxycycline IVPB. Monitor labs and cultures. (6) Acute exacerbation of CHF (congestive heart failure): Qualifiers: Heart failure type: unspecified Qualified Code(s): I50.9 - Heart failure, unspecified Code(s): I50.9 - Heart failure, unspecified Status: Acute Assessment and Plan: Monitor I and O Trial of diuresis, currently has 350 of output. Monitor I&Os. Monitor renal function. Update echo. Previously (11/01/21) showed LV hypertrophy with moderate LV dilation and significant systolic dysfunction, mild RV enlargement, biatrial dilation, trivial MR. (7) AMS (altered mental status): Qualifiers: Altered mental status type: somnolence Qualified Code(s): R40.0 - Somnolence Code(s): R41.82 - Altered mental status, unspecified Status: Acute Assessment and Plan: Suspect secondary to seizure activity. Head CT obtained and showed old infarctions no acute intracranial abnormalities. (8) Seizure: Code(s): R56.9 - Unspecified convulsions Status: Acute Assessment and Plan: Continue phenytoin. Seizure precautions. (9) Acute kidney injury superimposed on CKD: Code(s): N17.9 - Acute kidney failure, unspecified; N18.9 - Chronic kidney disease, unspecified Status: Acute Assessment and Plan: Likely secondary to current infection and CHF exacerbation. Renal ultrasound ordered. Assess CK and urine electrolytes. Monitor labs and I and O. (10) Hyperkalemia: Code(s): E87.5 - Hyperkalemia Status: Acute Assessment and Plan: Suspect this is secondary to ARMIN superimposed on CKD. Will hold potassium and aldactone. Monitor K. (11) Anemia: Code(s): D64.9 - Anemia, unspecified Status: Acute Assessment and Plan: HGB 7.1, monitor closely. transfuse as needed. Plan Plan is to continue with vent support, transfuse blood as need. monitor hgb. Diet: NPO GI Prophylaxis: PPI DVT Prophylaxis: Heparin gtt Lines: pIV Code Status: Full Code, paperwork in chart. Subj
[2023-04-16 09:48] LABS: Hematocrit 30.4 % (37.0-47.0); Mean Corpuscular HGB Conc 29.6 g/dl (32-36); Mean Corpuscular Hemoglobin 29.2 pg (26-34); Mean Corpuscular Volume 98.7 fl (80-100); Mean Platelet Volume 11.7 fl (7.4-10.4); Platelet Count Result 220 k/mm3 (150-375); Red Blood Count 3.08 M/mm3 (4.2-5.4); Red Cell Distribution Width 15.2 % (11.5-14.5); White Blood Count 16.7 K/mm3 (4.5-10.0)
[2023-04-16] MEDS: MIDAZOLAM 100MG/NS 100ML(*CRX) 100 MG/100 ML BAG IV CONT (10:00)
[2023-04-16] MEDS: MAGNESIUM SULF 2 GM/WATER 50ML 2 GM/50 ML BAG IVPB (10:13)
[2023-04-16] MEDS: CALCIUM GLUC 2,000 MG/NS 100ML 2,000 MG/100 ML BAG 100 MG IVPB (10:13)
[2023-04-16] MEDS: BARICITINIB 1 MG TABLET FEED TUBE (10:26)
--- NOTE | 2023-04-16 10:54 | PM.CNCAR ---
Assessment and Plan Assessment and plan (1) Non-ST elevation (NSTEMI) myocardial infarction: Code(s): I21.4 - Non-ST elevation (NSTEMI) myocardial infarction Status: Acute Assessment and Plan: 52-year-old female with CHF with reduced ejection fraction (LVEF 25-30% from 11/01/2022 echo), CKD, COPD/asthma, seizure disorder, morbid obesity. Patient admitted to [facility] on 04/15/2023 with hypoxemic and hypercarbic respiratory failure. EKG shows sinus tachycardia. Troponins elevated which are trending downwards. -continue antiplatelet treatment; anticoagulation with unfractionated heparin. -beta-josé, statin. -repeat echocardiogram with Doppler. -ischemic workup once renal function improves, infection resolves and clinically stable. -management of respiratory failure and COVID-19 infection as per welding robot operator. -monitor electrolytes and renal function. -monitor on telemetry History of Present Illness History of Present Illness Consult date/time: 04/16/23 10:54 Requesting physician: Shon Carroll MD Reason For Visit: Respiratory Failure/COVID Narrative: DATE OF CONSULT: 04/16/2023 REASON FOR CONSULT: Troponin elevation REQUESTING PHYSICIAN:MD Carly CHIEF COMPLAINT: Shortness of breath HPI: 52-year-old female with CHF with reduced ejection fraction (LVEF 25-30% from 11/01/2022 echo), CKD, COPD/asthma, seizure disorder, morbid obesity. Patient admitted to [facility] on 04/15/2023 with shortness of breath. Patient is COVID positive, and was found to be hypoxemic with O2 sats in 80s. Patient apparently had be seizures. She was intubated in the ER and admitted ICU. EKG on presentation on my personal interpretation showed sinus tachycardia, IVCD. Troponins elevated, peak troponin 3.5, which is trending downwards. NTproBNP elevated at 6500. At the time of evaluation, patient was intubated and sedated. On telemetry, she is in sinus tachycardia. Patient is on unfractionated heparin. Echo from 11/01/2022 showed severe LV systolic dysfunction, EF 25-30%. Review of Systems Review of Systems: Review of systems as per HPI, all other review of systems unobtainable as patient is sedated and intubated. She presented with worsening shortness of breath, and was intubated in the ER. She also had seizures. No documented chest pain. [facility] Past Medical History Medical History Asthma-COPD overlap syndrome Cerebrovascular accident Chronic kidney disease Congestive heart failure Echocardiogram in October 2021 showed left ventricular hypertrophy with moderate left ventricular dilation and significant systolic dysfunction with an EF estimated 25 to 30%, grade 1 diastolic dysfunction, and mild right ventricular enlargement with biatrial dilation. Gastroesophageal reflux disease Hyperlipidemia Hypertension Intellectual disability Iron deficiency anemia Seizure Vitamin D deficiency Surgical History Surgical History History of right above knee amputation Family History Family History Father Congestive heart failure Hypertension Mother Congestive heart failure Hypertension Social History Social History Social History: Surrogate decision maker: Laxmi Marrero, aunt. Code status: Full code. Smoking packs per day: 1 Smoking cigarettes per day: 20.0 Years smoked: 20 Smoking pack-years: 20.00 Smoking status: Former smoker Alcohol intake: unknown Substance use: unknown Substance use type: does not use Additional living arrangements comments: Resident at [facility]. Additional occupation/education comments: Disabled. Spiritual care concerns: No Meds Home Medications and Allergies Home Medications Medication Instructions Recorded C
[2023-04-16 10:58] LABS: Partial Thromboplastin Time 97.5 SECONDS (22.3-36.8)
[2023-04-16] MEDS: PROPOFOL IV EMULSION 100 ML 18.3 MG IV CONT ×3 (11:30→22:05)
[2023-04-16] MEDS: MIDAZOLAM HCL (*CRX) 2 MG/2 ML VIAL 4 MG IV PUSH (11:30)
[2023-04-16] MEDS: ROCURONIUM BROMIDE 50 MG/5 ML VIAL IV PUSH (11:30)
--- NOTE | 2023-04-16 11:49 | WPDINTPN ---
Progress Note: A&P Assessment and Plan (1) Acute and chronic respiratory failure with hypoxia: Code(s): J96.21 - Acute and chronic respiratory failure with hypoxia Status: Acute Assessment and Plan: Acute on chronic multifactorial Respiratory failure secondary to congestive heart failure, COPD, possible community-acquired pneumonia COVID-19 pneumonia Patient now intubated and sedated and on mechanical ventilation Continue full mechanical ventilation support to prevent hypoxemia/hypercarbia and end organ damage. Chest x-ray reviewed. Withdraw ET tube by [address] pending ABG reviewed. Increase PEEP to 10. Wean down FiO2 Continue dexamethasone, bronchodilators, empiric antibiotics for community-acquired pneumonia Continue diuretics (2) Acute exacerbation of congestive heart failure: Code(s): I50.9 - Heart failure, unspecified Status: Acute Assessment and Plan: Most recent echo 10/27 showed EF of 25-30% and diastolic dysfunction Repeat echo ordered (3) AMS (altered mental status): Qualifiers: Altered mental status type: somnolence Qualified Code(s): R40.0 - Somnolence Code(s): R41.82 - Altered mental status, unspecified Status: Acute Assessment and Plan: Secondary to hypoxia seizure Head CT shows old infarctions Check TSH and ammonia Now sedated and intubated (4) Acute exacerbation of chronic obstructive airways disease: Code(s): J44.1 - Chronic obstructive pulmonary disease with (acute) exacerbation Status: Acute Assessment and Plan: See above (5) Pneumonia: Code(s): J18.9 - Pneumonia, unspecified organism Status: Acute Assessment and Plan: See above (6) COVID-19: Code(s): U07.1 - COVID-19 Status: Acute Assessment and Plan: Tested positive for COVID-19 although respiratory failure appears multifactorial with most likely component of CHF COPD Continue dexamethasone Patient was also started on Versed and able on admission Isolation (7) Acute on chronic renal failure: Code(s): N17.9 - Acute kidney failure, unspecified; N18.9 - Chronic kidney disease, unspecified Status: Acute Assessment and Plan: Patient appears to have chronic kidney disease and creatinine is now elevated. Multifactorial Check renal ultrasound Unremarkable cK and urine electrolytes Creatinine improved to 3.1 Will give Lasix Monitor urine output electrolytes and creatinine At risk for needing HOT STRIP MILL INSPECTOR (8) Hyperkalemia: Code(s): E87.5 - Hyperkalemia Status: Acute Assessment and Plan: Secondary to ARMIN, supplemental potassium, Aldactone and acidosis Discontinued potassium and Aldactone Potassium level improved (9) Non-ST elevation (NSTEMI) myocardial infarction: Code(s): I21.4 - Non-ST elevation (NSTEMI) myocardial infarction Status: Acute Assessment and Plan: Patient has chronically elevated troponin levels were elevated on last to admission. Patient was evaluated by Cardiology but no ischemic workup was recommended at that time. She does have cardiomyopathy. Troponins again elevated. Patient was started on heparin drip and aspirin. Echo has been ordered. EKG does not show any ST elevation. Patient was evaluated by Cardiology this morning and recommend conservative management at this time which will be continued. Continue statin, beta-josé Plan DVT prophylaxis -Lovenox Stress ulcer prophylaxis -PPI Nutrition -start tube feeds Code Status - Full Code Total Critical Care Time - 40 minutes Due to a high probability of clinically significant, life threatening deterioration, the patient required my highest level of preparedness to intervene emergently and I personally spent this critical care time directly and personally managing the patient. This critical care time included obtaining a history; examining the patient; pulse oximetry; ordering and review of studies;
[2023-04-16 12:03] LABS: Glucose Point of Care 133 mg/dl (65-105)
[2023-04-16] MEDS: FUROSEMIDE INJ 100 MG/10 ML VIAL 80 MG IV PUSH (12:14)
[2023-04-16] MEDS: ACETAMINOPHEN ELIXIR 325 MG/10.15 ML UDC 650 MG (12:14)
--- NOTE | 2023-04-16 12:39 | PC.NURSE ---
Attempted to update family via telephone without success.
--- NOTE | 2023-04-16 14:05 | PC.NURSE ---
Updated daughter, Zena, on plan of care and patient status.
[2023-04-16] MEDS: FENTANYL 2,500MCG/NS250ML(*CRX 2,500 MCG/250 ML BAG 7.5 MCG IV CONT (14:44)
[2023-04-16] MEDS: CENTRAL LINE FLUSH 10 ML IV PUSH ×2 (14:49→20:14)
[2023-04-16 17:04] LABS: Triglycerides 109 mg/dL (<150)
[2023-04-16 17:06] LABS: Partial Thromboplastin Time 87.9 SECONDS (22.3-36.8)
[2023-04-16 17:40] LABS: Ammonia < 9 umol/L (9-30)
[2023-04-16 19:50] LABS: Thyroid Stimulating Hormone Reflex 0.524 uIU/mL (0.465-4.68)
[2023-04-16] MEDS: cefTRIAXone 2 GM/NS 100 ML 2 GM/100 ML BAG IVPB (20:12)
[2023-04-16] MEDS: HEPARIN SOD/D5W 100 UNITS/ML 25,000 UNITS/250 ML BAG 12 UNITS IV CONT (20:13)
[2023-04-16] MEDS: carvediloL 6.25 MG TABLET FEED TUBE (20:13)
[2023-04-17] VITALS (30 sets, daily range): BP systolic 115–151; BP diastolic 57–96; PULSE 77–101; RESP 20–21; TEMP 37.6–38.7; O2SAT 96–100; BMI 48.4
--- NOTE | 2023-04-17 | ECHO_ITS ---
Patient Info Name: Mirela Preston Age: 52 years : 1970 Gender: Female Ht: 70 in Wt: 334 lbs BSA: 2.81 m2 HR: 98 bpm BP: 151 / 88 mmHg Heart Rhythm: Sinus Rhythm Technical Quality: Poor Exam Date: 04/17/2023 1:20 PM Exam Location: Echo Lab Patient Status: Inpatient Admit Date: 04/15/2023 Staff Ordering Physician: Shon Carroll MD Sales Support Technician: Hazel He RDCS Attending Provider: Nash Chiu MD Exam Type: CA echo dop color flow w con Study Info Indications - CHF Complete two-dimensional, color flow and Doppler transthoracic echocardiogram is performed with contrast to opacify the left ventricle and to improve the deliniation of the left ventricle endocardial borders. Contrast/Agitated Saline Contrast/Ag. Saline: Definity Amount: 3.00 ml Administered By: Hazel He RDCS Existing IV Access: Yes IV Access Condition: patent with no signs of infiltration Summary 1. Technically difficult exam because of obesity/definity contrast injected to improve visualization. 2. Left ventricular dilation with severe global systolic dysfunction ejection fraction of 30%. 3. Diastolic noncompliance. 4. Left atrial enlarged. 5. No obvious valve dysfunction although quality of the exam is very challenging. Left Ventricle Left ventricular chamber dimension is moderately enlarged. Left ventricular systolic function is severely reduced, estimated at 25-30%. There is moderate concentric increased left ventricular wall thickness. The left ventricular diastolic function is grade I diastolic dysfunction. Right Ventricle Right ventricular chamber dimension is not well visualized. Left Atria Left atrial chamber dimension is moderately enlarged. Right Atria Right atrial chamber dimension is not well visualized. Aortic Valve The aortic valve is normal. Pulmonic Valve The pulmonic valve is not well visualized. Mitral Valve The mitral valve has normal leaflets. Tricuspid Valve The tricuspid valve leaflets are not well visualized. Pericardium/Pleural The pericardium appears normal. Aorta The aortic root size at the sinus of Valsalva is normal. Left Ventricular Outflow Tract Name Value Normal LVOT 2D LVOT Diameter 2.22 cm LVOT Doppler LVOT Peak Gradient 2 mmHg LVOT Mean Gradient 1 mmHg LVOT VTI 7.80 cm LVOT VTI/AV VTI Ratio 0.39 LVOT Stroke Volume 30.13 ml LVOT CO 2.70 l/min LVOT CI 0.96 L/min/m2 Pulmonic Valve Name Value Normal RVOT Doppler RVOT Peak Gradient 2 mmHg PV Doppler PV Peak Gradient 4 mmHg Mitral Valve
[2023-04-17 00:37] LABS: Glucose Point of Care 108 mg/dl (65-105)
[2023-04-17] MEDS: ACETAMINOPHEN 650 MG SUPPOSITORY RECTAL (03:08)
[2023-04-17] MEDS: PROPOFOL IV EMULSION 100 ML 18.3 MG IV CONT ×5 (03:31→23:15)
[2023-04-17] MEDS: DOXYCYCLINE 100 MG/NS 100 ML 100 MG/100 ML BAG IVPB ×2 (04:52→15:37)
[2023-04-17 05:25] LABS: Alveolar/Arterial O2 Gradient 172.9 mmHg; Base Excess ABG -3.5 mEq/l (+/-2.0); Carboxyhemoglobin 0.3 % THb (0-2.0); Fractional Inspired Oxygen 50 %; Methemoglobin ABG 0.1 %THb (0-1.5); Oxygen Content ABG 18.8 %vol (16.0-22.0); Oxygen Saturation ABG 98.8 % (95.0-100.0); Oxyhemoglobin 97.6 % THb (90.0-100.0); PCO2 ABG 36.4 mmHg (35.0-45.0); PO2 ABG 142.7 mmHg (80.0-100.0); PO2 FiO2 Ratio Arterial Blood 2.85 %; Total Hemoglobin 13.5 g/dL (12.0-18.0)
[2023-04-17 05:26] LABS: Arterial Blood Gas PEEP 10 cmH2O; Arterial Blood Gas Tidal Volume 450 ml; Arterial Blood Gas Vent Mode CMV; Arterial Blood Gas Ventilator rate 20 /MIN; Device VENTILATOR; Modified Allen's Test Pass; Site Drawn RIGHT RADIAL
[2023-04-17 05:37] LABS: Glucose Point of Care 97 mg/dl (65-105)
[2023-04-17] MEDS: CENTRAL LINE FLUSH 10 ML IV PUSH ×3 (06:11→19:49)
[2023-04-17 06:26] LABS: Alanine Aminotransferase 16 U/L (6-35); Albumin Level 3.2 g/dL (3.5-5.1); Alkaline Phosphatase 119 U/L (38-126); Anion Gap 9 mmol/L (8-16); Aspartate Amino Transferase 29 U/L (14-36); Bilirubin,Total 0.3 mg/dL (0.2-1.3); Blood Urea Nitrogen 62 mg/dL (7-17); Calcium 8.9 mg/dL (8.4-10.2); Carbon Dioxide 22 mmol/L (22-30); Chloride 112 mmol/L (98-107); Estimated CRCL calculation 21 ml/min; Estimated Glomerular Filt Rate 12; Glucose 109 mg/dL (65-110); Magnesium 2.3 mg/dL (1.6-2.3); Potassium 4.5 mmol/L (3.4-5.0); Sodium 143 mmol/L (137-145)
[2023-04-17] MEDS: ATORVASTATIN 40 MG TABLET 80 MG FEED TUBE (08:16)
[2023-04-17] MEDS: ASPIRIN 81 MG CHEWABLE TABLET FEED TUBE (08:17)
[2023-04-17] MEDS: carvediloL 6.25 MG TABLET FEED TUBE ×2 (08:17→19:49)
[2023-04-17] MEDS: MINERAL OIL/WHITE PETROLATUM OINTMENT 1 APPLIC EACH EYE ×2 (08:18→19:49)
[2023-04-17] MEDS: PANTOPRAZOLE SODIUM IV 40 MG VIAL IV PUSH ×2 (08:19→19:48)
--- NOTE | 2023-04-17 10:30 | P.CONNP_ITS ---
Assessment and Plan Assessment and plan (1) ARMIN (acute kidney injury): Code(s): N17.9 - Acute kidney failure, unspecified <Alfreda Corral MD - Last Filed: 04/30/23 12:46> Status: Acute <Alfreda Corral MD - Last Filed: 04/30/23 12:46> Assessment and Plan: * suspect ATN due to infection (COVID + pneumonia) and CHF exacerbation * evaluation noted: * renal ultrasound with medical renal disease (incomplete visualization of saul kidney) * CPK okay * UA with blood and protein along with granular casts * urine electrolytes pending * at risk for [employer]/dialysis * follow repeat labs and UOP <Alfreda Corral MD - Last Filed: 04/30/23 12:46> (2) Stage 3a chronic kidney disease: Code(s): N18.31 - Chronic kidney disease, stage 3a <Alfreda Corral MD - Last Filed: 04/30/23 12:46> Status: Chronic <Alfreda Corral MD - Last Filed: 04/30/23 12:46> Assessment and Plan: * creatinine was running around 1.4 - 1.5mg/dl in November 2021 * presumably secondary to hypertension and vascular disease * there may be a component of CKD progression since last admission... <Alfreda Corral MD - Last Filed: 04/30/23 12:46> (3) Acute and chronic respiratory failure with hypoxia: Code(s): J96.21 - Acute and chronic respiratory failure with hypoxia <Alfreda Corral MD - Last Filed: 04/30/23 12:46> Status: Acute <Alfreda Corral MD - Last Filed: 04/30/23 12:46> Assessment and Plan: * due to congestive heart failure, COPD, possible pneumonia, and COVID-19 pneumonia * intubated and on mechanical ventilation * on dexamethasone, bronchodilators, and antibiotics * continue current therapy * ventilator weaning as tolerated <Alfreda Corral MD - Last Filed: 04/30/23 12:46> (4) Pneumonia: Code(s): J18.9 - Pneumonia, unspecified organism <Alfreda Corral MD - Last Filed: 04/30/23 12:46> Status: Acute <Alfreda Corral MD - Last Filed: 04/30/23 12:46> Assessment and Plan: * suggestive by admission imaging * on antibiotics * follow culture data * continue supportive care <Alfreda Corral MD - Last Filed: 04/30/23 12:46> (5) Acute exacerbation of congestive heart failure: Code(s): I50.9 - Heart failure, unspecified <Alfreda Corral MD - Last Filed: 04/30/23 12:46> Status: Acute <Alfreda Corral MD - Last Filed: 04/30/23 12:46> Assessment and Plan: * last echo 10/27 showed EF of 25-30% and diastolic dysfunction * volume overload on presentation * resume diuretics as able <Alfreda Corral MD - Last Filed: 04/30/23 12:46> (6) AMS (altered mental status): Qualifiers: Altered mental status type: somnolence Qualified Code(s): R40.0 - Somnolence <Alfreda Corral MD - Last Filed: 04/30/23 12:46> Code(s): R41.82 - Altered mental status, unspecified <Alfreda Corral MD - Last Filed: 04/30/23 12:46> Status: Acute <Alfreda Corral MD - Last Filed: 04/30/23 12:46> Assessment and Plan: * secondary to seizure likely precipirated by hypoxia * Head CT shows old infarctions * reassess when off ventilator <Alfreda Corral MD - Last Filed: 04/30/23 12:46> (7) COVID-19: Code(s): U07.1 - COVID-19 <Alfreda Corral MD - Last Filed: 04/30/23 12:46> Status: Acute <Alfreda Corral MD - Last Filed: 04/30/23 12:46> Assessment and Plan: * noted COVID-19 positivity in ER * however, respiratory failure appears multifactorial with most likely com
--- NOTE | 2023-04-17 10:30 | PM.CNNEP ---
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 <Alfreda Corral MD - Last Filed: 04/30/23 12:46> (3) Acute and chronic respiratory failure with hypoxia: Code(s): J96.21 - Acute and chronic respiratory failure with hypoxia <Alfreda Corral MD - Last Filed: 04/30/23 12:46> Status: Acute <Alfreda Corral MD - Last Filed: 04/30/23 12:46> Assessment and Plan: due to congestive heart failure, COPD, possible pneumonia, and COVID-19 pneumonia intubated and on mechanical ventilation on dexamethasone, bronchodilators, and antibiotics continue current therapy ventilator weaning as tolerated <Alfreda Corral MD - Last Filed: 04/30/23 12:46> (4) Pneumonia: Code(s): J18.9 - Pneumonia, unspecified organism <Alfreda Corral MD - Last Filed: 04/30/23 12:46> Status: Acute <Alfreda Corral MD - Last Filed: 04/30/23 12:46> Assessment and Plan: suggestive by admission imaging on antibiotics follow culture data continue supportive care <Alfreda Corral MD - Last Filed: 04/30/23 12:46> (5) Acute exacerbation of congestive heart failure: Code(s): I50.9 - Heart failure, unspecified <Alfreda Corral MD - Last Filed: 04/30/23 12:46> Status: Acute <Alfreda Corral MD - Last Filed: 04/30/23 12:46> Assessment and Plan: last echo 10/27 showed EF of 25-30% and diastolic dysfunction volume overload on presentation resume diuretics as able <Alfreda Corral MD - Last Filed: 04/30/23 12:46> (6) AMS (altered mental status): Qualifiers: Altered mental status type: somnolence Qualified Code(s): R40.0 - Somnolence <Alfreda Corral MD - Last Filed: 04/30/23 12:46> Code(s): R41.82 - Altered mental status, unspecified <Alfreda Corral MD - Last Filed: 04/30/23 12:46> Status: Acute <Alfreda Corral MD - Last Filed: 04/30/23 12:46> Assessment and Plan: secondary to seizure likely precipirated by hypoxia Head CT shows old infarctions reassess when off ventilator <Alfreda Corral MD - Last Filed: 04/30/23 12:46> (7) COVID-19: Code(s): U07.1 - COVID-19 <Alfreda Corral MD - Last Filed: 04/30/23 12:46> Status: Acute <Alfreda Corral MD - Last Filed: 04/30/23 12:46> Assessment and Plan: noted COVID-19 positivity in ER however, respiratory failure appears multifactorial with most likely component of CHF COPD on dexamethasone and remdesivir in I=isolation I will continue follow patient with you while she remains hospitalized make further recommendations as needed. Thank you for allowing me to participate in the care of this patient. <Alfreda Corral MD - Last Filed: 04/30/23 12:46> History of Present Illness Reason for Consult Consult date:
--- NOTE | 2023-04-17 11:31 | PM.PNCARD ---
Progress Note: A&P Assessment and Plan (1) Non-ST elevation (NSTEMI) myocardial infarction: Code(s): I21.4 - Non-ST elevation (NSTEMI) myocardial infarction Status: Acute Plan 52-year-old lady with known to have LV systolic dysfunction unfortunately with massive obesity and acute respiratory failure probably related to an infectious cause. She is COVID positive. She is continues to be febrile in the ICU. Troponin rise is indicative of a type 2 infarction in this setting and aggressive supportive care is indicated. As I have dictated in previous notes in this patient there is no plan to bring her for a coronary angiogram. Her massive obesity/body habitus precludes reasonable attempt at angiography. Now she is also dealing with acute kidney injury and an angiogram in the setting of a type 2 infarction is inappropriate even if she was of normal body habitus Angel Winkler MD [facility] Subjective Date/time seen: In date of service: 04/17/23 11:31 Interval history: Follow-up visit in this 52-year-old lady with: Troponin elevation with clinical diagnosis of non ST elevation OR. This is probably a type 2 infarction related to marked hypoxemia and respiratory failure rather than acute coronary plaque rupture. She is known to have LV systolic dysfunction and has been on appropriate medical therapy for that. Patient is currently intubated on ventilator support and has severe acute kidney injury. Patient is intubated sedated on mechanical ventilator support. Exam Const: Other: Massively obese black female right lower extremity high amputee . Sedated on ventilator support HENMT: Mouth: Yes moist mucous membranes Eyes: Sclera: sclerae normal Neck: Other: Unable to assess venous distention given her body habitus Resp: Other: Coarse breath sounds throughout both lung daniels Cardio: Rate: regular rate Rhythm: regular rhythm Other: Very difficult exam given obesity and loud breath sounds GI: GI Palp: Yes Soft to palpation Other: Massively obese/bowel sounds are intact Skin: General skin exam: normal color Neuro: Other: Sedated Extrem: Other: No edema in the left lower extremity, warm and adequately perfused Objective Data Vital Signs Vital Signs: Vital Signs - 24 hr 04/16/23 12:14 04/16/23 12:00 04/16/23 12:00 Temperature 38.7 C H Pulse Rate 119 H 119 H Respiratory Rate 20 20 Blood Pressure Pulse Oximetry Oxygen Delivery Fraction of Inspired Oxygen 04/16/23 12:00 04/16/23 12:00 04/16/23 12:00 Temperature 38.6 C H Pulse Rate 119 H 125 H 120 H Respiratory Rate 20 20 Blood Pressure 125/89 Pulse Oximetry 98 Oxygen Delivery Fraction of Inspired Oxygen 04/16/23 12:00 04/16/23 13:14 04/16/23 13:40 Temperature 38.2 C H Pulse Rate 88 Respiratory Rate Blood Pressure Pulse Oximetry 98 98 Oxygen Delivery Mechanical Ventilation Mechanical Ventilation Fraction of Inspired Oxygen 50 50 04/16/23 14:00 04/16/23 14:44 04/16/23 14:00 Temperature Pulse Rate 87 86 86 Respiratory Rate 20 20 20 Blood Pressure Pulse Oximetry Oxygen Delivery Fraction of Inspired Oxygen 04/16/23 14:00 04/16/23 14:00 04/16/23 16:15 Temperature 37.9 C H Pulse Rate 86 89 86 Respiratory Rate 20 Blood Pressure 109/78 Pulse Oximetry 98 99 Oxygen Delivery Mechanical Ventilation Fraction of Inspired Oxygen 50 04/16/23 16:22 04/16/23 16:22 04/16/23 16:00 Temperature 37.7 C H Pulse Rate 85 85 84 Respiratory Rate 20 20 20 Blood Pressure 121/79 Pulse Oximetry 99 Oxygen Delivery Fraction of Inspired Oxygen 04/16/23 16:00 04/16/23 16:00 04/16/23 16:00 Temperature Pulse Rate 84 84 Respiratory Rate 20 20 Blood Pressure Pulse Oximetry 98 Oxygen Delivery Mechanical Ventilation Fraction of Inspired Oxygen 50 04/16/23 18:00 04/16/23 16:00 04/16/23 18:00 Te
--- NOTE | 2023-04-17 11:44 | WPDINTPN ---
Progress Note: A&P Assessment and Plan (1) Acute and chronic respiratory failure with hypoxia: Code(s): J96.21 - Acute and chronic respiratory failure with hypoxia Status: Acute Assessment and Plan: Acute on chronic multifactorial Respiratory failure secondary to congestive heart failure, COPD, possible community-acquired pneumonia COVID-19 pneumonia Patient now intubated and sedated and on mechanical ventilation Continue full mechanical ventilation support to prevent hypoxemia/hypercarbia and end organ damage. Chest x-ray reviewed. Chest CT was ordered but patient is too big to fit in our CT scanner ABG reviewed. Decrease PEEP to 8 wean down FiO2 Continue dexamethasone, bronchodilators, empiric antibiotics for community-acquired pneumonia (2) Acute exacerbation of congestive heart failure: Code(s): I50.9 - Heart failure, unspecified Status: Acute Assessment and Plan: Most recent echo 10/27 showed EF of 25-30% and diastolic dysfunction Repeat echo ordered (3) AMS (altered mental status): Qualifiers: Altered mental status type: somnolence Qualified Code(s): R40.0 - Somnolence Code(s): R41.82 - Altered mental status, unspecified Status: Acute Assessment and Plan: Secondary to hypoxia seizure Head CT shows old infarctions Normal tSH and ammonia Now sedated and intubated (4) Acute exacerbation of chronic obstructive airways disease: Code(s): J44.1 - Chronic obstructive pulmonary disease with (acute) exacerbation Status: Acute Assessment and Plan: See above (5) Pneumonia: Code(s): J18.9 - Pneumonia, unspecified organism Status: Acute Assessment and Plan: See above (6) COVID-19: Code(s): U07.1 - COVID-19 Status: Acute Assessment and Plan: Tested positive for COVID-19 although respiratory failure appears multifactorial with most likely component of CHF COPD Continue dexamethasone Isolation (7) Acute on chronic renal failure: Code(s): N17.9 - Acute kidney failure, unspecified; N18.9 - Chronic kidney disease, unspecified Status: Acute Assessment and Plan: Patient appears to have chronic kidney disease and creatinine is now elevated. Multifactorial Renal ultrasound showedIncomplete visualization of the left kidney. Findings suggestive of medical renal disease. Unremarkable cK and urine electrolytes Creatinine worsened to 4.8 Hold diuretics Monitor urine output electrolytes and creatinine At risk for needing LEARNING DESIGNER (8) Hyperkalemia: Code(s): E87.5 - Hyperkalemia Status: Acute Assessment and Plan: Secondary to ARMIN, supplemental potassium, Aldactone and acidosis Discontinued potassium and Aldactone Potassium level improved (9) Non-ST elevation (NSTEMI) myocardial infarction: Code(s): I21.4 - Non-ST elevation (NSTEMI) myocardial infarction Status: Acute Assessment and Plan: Patient has chronically elevated troponin levels were elevated on last to admission. Patient was evaluated by Cardiology but no ischemic workup was recommended at that time. She does have cardiomyopathy. Troponins again elevated. Patient was started on heparin drip and aspirin. Echo has been ordered and is pending. EKG does not show any ST elevation. Patient was evaluated by Cardiology this morning and recommend conservative management at this time which will be continued. Continue statin, beta-josé Plan DVT prophylaxis -Lovenox Stress ulcer prophylaxis -PPI Nutrition -continue tube feeds Code Status - Full Code I spoke to patient's SU Mazariegos who is patient's aunt. She told me the patient has been in long term for last 10 years after of her mother. She has had multiple strokes which led to her admission to long term in the 1st place. She has had poorly controlled hypertension. She is aware the patient has COVID. She told me the patient has 2 children which sh
[2023-04-17] MEDS: MIDAZOLAM 100MG/NS 100ML(*CRX) 100 MG/100 ML BAG IV CONT (11:51)
[2023-04-17 12:13] LABS: Glucose Point of Care 120 mg/dl (65-105)
[2023-04-17] MEDS: ALBUMIN HUMAN 25% 25 GM/100 ML 100 ML IVPB ×2 (13:09→18:13)
[2023-04-17] MEDS: PERFLUTREN LIPID MICROSPHERES 1.5 ML VIAL DILUTED TO 10 ML TOTAL VOLUME IV PUSH (13:45)
--- NOTE | 2023-04-17 14:27 | IVDEFINITY ---
Prior to administration of IV Definity the patient was educated on the risks and benefits of the imaging enhancing agent including potential adverse side effects. The patient verbalized understanding. Allergies were verified. No exclusion criteria were identified and at least one of the following inclusion criteria were met: 1) physician request, 2) patient technically difficult to image (per the [place] [employer] guidelines of two or more segments not discernable within the apical view), or 3) questionable left ventricular function. ?
[2023-04-17] MEDS: HEPARIN SOD/D5W 100 UNITS/ML 25,000 UNITS/250 ML BAG 12 UNITS IV CONT (18:10)
[2023-04-17 18:24] LABS: Glucose Point of Care 100 mg/dl (65-105)
[2023-04-17] MEDS: cefTRIAXone 2 GM/NS 100 ML 2 GM/100 ML BAG IVPB (19:50)
[2023-04-18] VITALS (38 sets, daily range): BP systolic 135–152; BP diastolic 64–106; PULSE 76–106; RESP 20–30; TEMP 37.4–38.2; O2SAT 94–100
[2023-04-18] MEDS: FENTANYL 2,500MCG/NS250ML(*CRX 2,500 MCG/250 ML BAG 7.5 MCG IV CONT (00:52)
[2023-04-18] MEDS: ALBUMIN HUMAN 25% 25 GM/100 ML 100 ML IVPB ×2 (00:58→05:32)
[2023-04-18 01:11] LABS: Glucose Point of Care 105 mg/dl (65-105)
[2023-04-18] MEDS: PROPOFOL IV EMULSION 100 ML 18.3 MG IV CONT ×4 (04:35→18:49)
[2023-04-18] MEDS: DOXYCYCLINE 100 MG/NS 100 ML 100 MG/100 ML BAG IVPB ×2 (04:37→16:20)
[2023-04-18 05:51] LABS: Alveolar/Arterial O2 Gradient 120.7 mmHg; Base Excess ABG -4.2 mEq/l (+/-2.0); Carboxyhemoglobin 0.3 % THb (0-2.0); Fractional Inspired Oxygen 40 %; HCO3 ABG 19.8 mEq/l (22.0-26.0); Methemoglobin ABG 0.3 %THb (0-1.5); Oxygen Content ABG 10.1 %vol (16.0-22.0); Oxygen Saturation ABG 98.6 % (95.0-100.0); Oxyhemoglobin 97.1 % THb (90.0-100.0); PCO2 ABG 31.4 mmHg (35.0-45.0); PO2 ABG 128.4 mmHg (80.0-100.0); PO2 FiO2 Ratio Arterial Blood 3.21 %; Reduced Hemoglobin 2.3 %THb (0-5.0); pH ABG 7.417 (7.350-7.450)
[2023-04-18 05:52] LABS: Arterial Blood Gas Vent Mode CMV; Arterial Blood Gas Ventilator rate 20 /MIN; Device VENTILATOR; Modified Allen's Test Unable to perform; Site Drawn RIGHT RADIAL; Total Hemoglobin 7.2 g/dL (12.0-18.0)
[2023-04-18 05:53] LABS: Arterial Blood Gas PEEP 8 cmH2O; Arterial Blood Gas Tidal Volume 450 ml
[2023-04-18 06:01] LABS: Basophils Percent Auto 0.3 % (0.2-1.2); Eosinophils Absolute Auto 0.2 K/mm3 (0-0.3); Hematocrit 21.2 % (37.0-47.0); Immature Granulocyte Absolute 0.06 K/mm3 (0.00-0.031); Immature Granulocyte Percent A 0.9 % (0-0.5); Lymphocytes Absolute Auto 1.75 K/mm3 (0.9-3.2); Lymphocytes Percent Auto 27.3 % (18.3-44.2); Mean Corpuscular HGB Conc 29.7 g/dl (32-36); Mean Corpuscular Hemoglobin 28.6 pg (26-34); Mean Corpuscular Volume 96.4 fl (80-100); Mean Platelet Volume 11.7 fl (7.4-10.4); Monocytes Absolute Auto 0.5 K/mm3 (0.1-0.6); Monocytes Percent Auto 7.2 % (2.6-8.5); Neutrophils Absolute Auto 3.9 K/mm3 (1.3-6.7); Neutrophils Percent Auto 61.3 % (45.5-73.1); Platelet Count Result 134 k/mm3 (150-375); Red Cell Distribution Width 15.4 % (11.5-14.5); White Blood Count 6.4 K/mm3 (4.5-10.0)
[2023-04-18 06:18] LABS: Alanine Aminotransferase 14 U/L (6-35); Albumin Level 3.7 g/dL (3.5-5.1); Alkaline Phosphatase 92 U/L (38-126); Anion Gap 12 mmol/L (8-16); Aspartate Amino Transferase 30 U/L (14-36); Bilirubin,Total 0.3 mg/dL (0.2-1.3); Blood Urea Nitrogen 73 mg/dL (7-17); Calcium 8.9 mg/dL (8.4-10.2); Carbon Dioxide 19 mmol/L (22-30); Chloride 113 mmol/L (98-107); Estimated CRCL calculation 19 ml/min; Estimated Glomerular Filt Rate 10; Glucose 79 mg/dL (65-110); Magnesium 2.3 mg/dL (1.6-2.3); Potassium 4.2 mmol/L (3.4-5.0); Sodium 144 mmol/L (137-145)
[2023-04-18] MEDS: CENTRAL LINE FLUSH 10 ML IV PUSH ×3 (06:21→21:07)
[2023-04-18 06:46] LABS: Hemoglobin 6.3 g/dL (12.0-15.0)
[2023-04-18 06:49] LABS: Triglycerides 180 mg/dL (<150)
[2023-04-18] MEDS: ASPIRIN 81 MG CHEWABLE TABLET FEED TUBE (07:46)
[2023-04-18] MEDS: PANTOPRAZOLE SODIUM IV 40 MG VIAL IV PUSH ×2 (07:46→21:06)
[2023-04-18] MEDS: ATORVASTATIN 40 MG TABLET 80 MG FEED TUBE (07:47)
[2023-04-18] MEDS: carvediloL 6.25 MG TABLET FEED TUBE ×2 (07:48→21:05)
[2023-04-18] MEDS: MINERAL OIL/WHITE PETROLATUM OINTMENT 1 APPLIC EACH EYE ×2 (08:06→21:06)
--- NOTE | 2023-04-18 10:59 | P.PNNP_ITS ---
Progress Note: A&P Assessment and Plan (1) ARMIN (acute kidney injury): Code(s): N17.9 - Acute kidney failure, unspecified Status: Acute Assessment and Plan: * slow rise noted in BUN and creatinine * suspect ATN due to infection (COVID + pneumonia) and CHF exacerbation * evaluation noted: * renal ultrasound with medical renal disease (incomplete visualization of saul kidney) * CPK okay * UA with blood and protein along with granular casts * urine electrolytes never done * responsive to diuretic therapy - use PRN * follow repeat labs and UOP (2) Stage 3a chronic kidney disease: Code(s): N18.31 - Chronic kidney disease, stage 3a Status: Chronic Assessment and Plan: * creatinine was running around 1.4 - 1.5mg/dl in November 2021 * presumably secondary to hypertension and vascular disease as well as CHF * there may be a component of CKD progression since last admission... (3) Acute and chronic respiratory failure with hypoxia: Code(s): J96.21 - Acute and chronic respiratory failure with hypoxia Status: Acute Assessment and Plan: * due to congestive heart failure, COPD, possible pneumonia, and COVID-19 pneumonia * intubated and on mechanical ventilation * continue current therapy - steroids/bronchodilators/antibiotics * weaning when more stable * unable to do CT imaging due to body habitus (4) Pneumonia: Code(s): J18.9 - Pneumonia, unspecified organism Status: Acute Assessment and Plan: * suggestive by admission imaging * on antibiotics * follow culture data * continue supportive care (5) Acute exacerbation of congestive heart failure: Code(s): I50.9 - Heart failure, unspecified Status: Acute Assessment and Plan: * last echo 10/27 showed EF of 25-30% and diastolic dysfunction * volume overload on presentation * diuretics on hold due to #1 -- however, may need to resume * follow volume status closely (6) AMS (altered mental status): Qualifiers: Altered mental status type: somnolence Qualified Code(s): R40.0 - Somnolence Code(s): R41.82 - Altered mental status, unspecified Status: Acute Assessment and Plan: * secondary to seizure likely precipirated by hypoxia * however, based on discussion with family, she appears at baseline * Head CT shows old infarctions * follow mentation (7) Non-ST elevation (NSTEMI) myocardial infarction: Code(s): I21.4 - Non-ST elevation (NSTEMI) myocardial infarction Status: Acute Assessment and Plan: * chronically elevated troponins * Cardiology recommendations noted * known cardiomyopathy by last echo * conservative therapy (8) Anemia: Code(s): D64.9 - Anemia, unspecified Status: Acute Assessment and Plan: * as noted by AM labs * PRBC transfusion per protocol * heparin discontinued * empiric PPI * related to ARMIN, CKD, and acute illness(?) * follow trend of H/H (9) COVID-19: Code(s): U07.1 - COVID-19 Status: Acute Assessment and Plan: * noted COVID-19 positivity in ER * however, respiratory failure appears multifactorial with most likely component of CHF + COPD * on dexamethasone and remdesivir per protocol Will continue to follow. Subjective Date/time seen: 04/18/23 10:09 Interval history: Follow-up for acute kidney injury/acute renal failure on chronic kidney disease. Remains intubated/sedated and on mechanical ventilation; off
--- NOTE | 2023-04-18 10:59 | PM.PNNEP ---
Progress Note: A&P Assessment and Plan (1) ARMIN (acute kidney injury): Code(s): N17.9 - Acute kidney failure, unspecified Status: Acute Assessment and Plan: slow rise noted in BUN and creatinine suspect ATN due to infection (COVID + pneumonia) and CHF exacerbation evaluation noted: renal ultrasound with medical renal disease (incomplete visualization of saul kidney) CPK okay UA with blood and protein along with granular casts urine electrolytes never done responsive to diuretic therapy - use PRN follow repeat labs and UOP (2) Stage 3a chronic kidney disease: Code(s): N18.31 - Chronic kidney disease, stage 3a Status: Chronic Assessment and Plan: creatinine was running around 1.4 - 1.5mg/dl in November 2021 presumably secondary to hypertension and vascular disease as well as CHF there may be a component of CKD progression since last admission... (3) Acute and chronic respiratory failure with hypoxia: Code(s): J96.21 - Acute and chronic respiratory failure with hypoxia Status: Acute Assessment and Plan: due to congestive heart failure, COPD, possible pneumonia, and COVID-19 pneumonia intubated and on mechanical ventilation continue current therapy - steroids/bronchodilators/antibiotics weaning when more stable unable to do CT imaging due to body habitus (4) Pneumonia: Code(s): J18.9 - Pneumonia, unspecified organism Status: Acute Assessment and Plan: suggestive by admission imaging on antibiotics follow culture data continue supportive care (5) Acute exacerbation of congestive heart failure: Code(s): I50.9 - Heart failure, unspecified Status: Acute Assessment and Plan: last echo 10/27 showed EF of 25-30% and diastolic dysfunction volume overload on presentation diuretics on hold due to #1 -- however, may need to resume follow volume status closely (6) AMS (altered mental status): Qualifiers: Altered mental status type: somnolence Qualified Code(s): R40.0 - Somnolence Code(s): R41.82 - Altered mental status, unspecified Status: Acute Assessment and Plan: secondary to seizure likely precipirated by hypoxia however, based on discussion with family, she appears at baseline Head CT shows old infarctions follow mentation (7) Non-ST elevation (NSTEMI) myocardial infarction: Code(s): I21.4 - Non-ST elevation (NSTEMI) myocardial infarction Status: Acute Assessment and Plan: chronically elevated troponins Cardiology recommendations noted known cardiomyopathy by last echo conservative therapy (8) Anemia: Code(s): D64.9 - Anemia, unspecified Status: Acute Assessment and Plan: as noted by AM labs PRBC transfusion per protocol heparin discontinued empiric PPI related to ARMIN, CKD, and acute illness(?) follow trend of H/H (9) COVID-19: Code(s): U07.1 - COVID-19 Status: Acute Assessment and Plan: noted COVID-19 positivity in ER however, respiratory failure appears multifactorial with most likely component of CHF + COPD on dexamethasone and remdesivir per protocol Will continue to follow. Subjective Date/time seen: 04/18/23 10:09 Interval history: Follow-up for acute kidney injury/acute renal failure on chronic kidney disease. Remains intubated/sedated and on mechanical ventilation; off vasopressor support and stable if not better urine output although renal function/creatinine worse; no other issues/events overnight or earlier this morning. Exam Narrative: General: Large female in NAD Heart: normal S1 and S2; no rub Lungs: coarase breath sounds throughout Abdomen: soft, nontender, nondistended, positive bowel sounds Extremities: no cyanosis or clubbing; no edema; s/p right AKA Skin: warm and dry Objective Data Vital Signs Vital Signs: Vital Signs
--- NOTE | 2023-04-18 11:08 | WPDINTPN ---
Progress Note: A&P Assessment and Plan (1) Acute and chronic respiratory failure with hypoxia: Code(s): J96.21 - Acute and chronic respiratory failure with hypoxia Status: Acute Assessment and Plan: Acute on chronic multifactorial Respiratory failure secondary to congestive heart failure, COPD, possible community-acquired pneumonia COVID-19 pneumonia Patient now intubated and sedated and on mechanical ventilation Continue full mechanical ventilation support to prevent hypoxemia/hypercarbia and end organ damage. Chest x-ray reviewed. Chest CT was ordered but patient is too big to fit in our CT scanner ABG reviewed. FiO2 is 40% peep is at 8 Continue dexamethasone, bronchodilators, empiric antibiotics for community-acquired pneumonia Do sedation holiday and evaluate for weaning trial (2) Acute exacerbation of congestive heart failure: Code(s): I50.9 - Heart failure, unspecified Status: Acute Assessment and Plan: Most recent echo 10/27 showed EF of 25-30% and diastolic dysfunction Repeat echo ordered (3) AMS (altered mental status): Qualifiers: Altered mental status type: somnolence Qualified Code(s): R40.0 - Somnolence Code(s): R41.82 - Altered mental status, unspecified Status: Acute Assessment and Plan: Secondary to hypoxia seizure Head CT shows old infarctions Normal tSH and ammonia Now sedated and intubated (4) Acute exacerbation of chronic obstructive airways disease: Code(s): J44.1 - Chronic obstructive pulmonary disease with (acute) exacerbation Status: Acute Assessment and Plan: See above (5) Pneumonia: Code(s): J18.9 - Pneumonia, unspecified organism Status: Acute Assessment and Plan: See above (6) COVID-19: Code(s): U07.1 - COVID-19 Status: Acute Assessment and Plan: Tested positive for COVID-19 although respiratory failure appears multifactorial with most likely component of CHF COPD Continue dexamethasone Isolation (7) Acute on chronic renal failure: Code(s): N17.9 - Acute kidney failure, unspecified; N18.9 - Chronic kidney disease, unspecified Status: Acute Assessment and Plan: Patient appears to have chronic kidney disease and creatinine is now elevated. Multifactorial Renal ultrasound showedIncomplete visualization of the left kidney. Findings suggestive of medical renal disease. Unremarkable cK and urine electrolytes Creatinine worsened to 5.4 Hold diuretics Monitor urine output electrolytes and creatinine At risk for needing CERTIFIED MEDICAL CODER Nephrology consulted (8) Hyperkalemia: Code(s): E87.5 - Hyperkalemia Status: Acute Assessment and Plan: Secondary to ARMIN, supplemental potassium, Aldactone and acidosis Discontinued potassium and Aldactone Potassium level improved (9) Non-ST elevation (NSTEMI) myocardial infarction: Code(s): I21.4 - Non-ST elevation (NSTEMI) myocardial infarction Status: Acute Assessment and Plan: Patient has chronically elevated troponin levels were elevated on last to admission. Patient was evaluated by Cardiology but no ischemic workup was recommended at that time. She does have cardiomyopathy. Troponins again elevated. Patient was started on heparin drip and aspirin. Echo has been ordered and is pending. EKG does not show any ST elevation. Patient was evaluated by Cardiology this morning and recommend conservative management at this time which will be continued. Continue statin, beta-josé Heparin has been discontinued (10) Anemia: Code(s): D64.9 - Anemia, unspecified Status: Acute Assessment and Plan: Patient's hemoglobin has been gradually trending down. It was 6.3 this morning Patient was transfuse 1 unit of PRBC. Heparin was discontinued The no obvious signs of bleeding. Patient is too big to fit in CT scanner to evaluate for any intra-abdominal or retroperitoneal hemorrhage. No
--- NOTE | 2023-04-18 11:18 | PCNFU ---
Nutrition Follow-Up Complete: Increased protein needs related to mechanical ventilation as evidenced by need for full tube feeding goal: Meet estimated protein energy needs Patient is progressing towards goal. We will continue current goal. Pt current nutrition is Nepro at 40 ml/hr. Last recorded weight is 154 kg, stable Bowel Motility:+BM reported 04/16 Labs Reviewed:TG 180,BUN 73, Cr 5.4,GFR 10 Meds Noted:Protonix, Fentanyl, Decadron, Propofol at 20 lpti=682 kcals. Skin:WNL Additional Notes:Patient remains on mechanical vent. Tube feedings continue to at 40 ml/hr. Propofol at 20 mcgs providing an additional 483 kcals. Total Nutrition at this time: 2067 kcals/71 gms protein/639 ml water. Flush 30 ml q 4hours. Recommend adding protein modular of Prosource once daily, providing an additional 20 gms protein. Monitoring meds, tube feeding tolerance, labs, output, weights, plan of care Follow daily in ICU rounds, reassess Monday and Monday
[2023-04-18] MEDS: SODIUM CHLORIDE 0.9% IV 250 ML 30 ML IV CONT (11:22)
[2023-04-18 12:05] LABS: Glucose Point of Care 110 mg/dl (65-105)
[2023-04-18 15:07] LABS: Hematocrit 24.5 % (37.0-47.0); Hemoglobin 7.3 g/dL (12.0-15.0); Mean Corpuscular HGB Conc 29.8 g/dl (32-36); Mean Corpuscular Hemoglobin 28.6 pg (26-34); Mean Corpuscular Volume 96.1 fl (80-100); Mean Platelet Volume 11.6 fl (7.4-10.4); Platelet Count Result 146 k/mm3 (150-375); Red Blood Count 2.55 M/mm3 (4.2-5.4); Red Cell Distribution Width 15.1 % (11.5-14.5); White Blood Count 7.5 K/mm3 (4.5-10.0)
[2023-04-18 16:55] LABS: Glucose Point of Care 101 mg/dl (65-105)
[2023-04-18 18:20] LABS: Glucose Point of Care 100 mg/dl (65-105)
[2023-04-18 18:48] LABS: Hemoglobin 7.3 g/dL (12.0-15.0); Mean Corpuscular HGB Conc 30.4 g/dl (32-36); Mean Corpuscular Hemoglobin 29.1 pg (26-34); Mean Corpuscular Volume 95.6 fl (80-100); Mean Platelet Volume 11.3 fl (7.4-10.4); Platelet Count Result 143 k/mm3 (150-375); Red Blood Count 2.51 M/mm3 (4.2-5.4); Red Cell Distribution Width 15.4 % (11.5-14.5); White Blood Count 7.9 K/mm3 (4.5-10.0)
[2023-04-18] MEDS: cefTRIAXone 2 GM/NS 100 ML 2 GM/100 ML BAG IVPB (21:05)
[2023-04-18 22:06] LABS: Pneumococcal Antigen Urine Not Detected (Not Detected)
[2023-04-19] VITALS (43 sets, daily range): BP systolic 134–155; BP diastolic 75–95; PULSE 82–107; RESP 20–32; TEMP 37.7–38.4; O2SAT 93–99
[2023-04-19] MEDS: PROPOFOL IV EMULSION 100 ML 22.88 MG IV CONT ×4 (00:28→12:30)
[2023-04-19 00:49] LABS: Glucose Point of Care 87 mg/dl (65-105)
[2023-04-19 01:02] LABS: Hematocrit 24.8 % (37.0-47.0); Hemoglobin 7.5 g/dL (12.0-15.0); Mean Corpuscular HGB Conc 30.2 g/dl (32-36); Mean Corpuscular Hemoglobin 29.1 pg (26-34); Mean Corpuscular Volume 96.1 fl (80-100); Mean Platelet Volume 10.8 fl (7.4-10.4); Platelet Count Result 144 k/mm3 (150-375); Red Blood Count 2.58 M/mm3 (4.2-5.4); Red Cell Distribution Width 15.7 % (11.5-14.5); White Blood Count 9.2 K/mm3 (4.5-10.0)
[2023-04-19 03:21] LABS: Legionella pneumophila Ag Ur Not Detected (Not Detected)
[2023-04-19] MEDS: DOXYCYCLINE 100 MG/NS 100 ML 100 MG/100 ML BAG IVPB ×2 (04:16→15:16)
[2023-04-19] MEDS: FENTANYL 2,500MCG/NS250ML(*CRX 2,500 MCG/250 ML BAG 7.5 MCG IV CONT (04:18)
[2023-04-19 05:14] LABS: Alveolar/Arterial O2 Gradient 160.3 mmHg; Base Excess ABG -6.1 mEq/l (+/-2.0); Carboxyhemoglobin 0.5 % THb (0-2.0); Fractional Inspired Oxygen 40 %; HCO3 ABG 19.2 mEq/l (22.0-26.0); Methemoglobin ABG 0.2 %THb (0-1.5); Oxygen Content ABG 12.2 %vol (16.0-22.0); Oxygen Saturation ABG 95.5 % (95.0-100.0); Oxyhemoglobin 93.7 % THb (90.0-100.0); PCO2 ABG 37.1 mmHg (35.0-45.0); PO2 ABG 82.2 mmHg (80.0-100.0); PO2 FiO2 Ratio Arterial Blood 2.05 %; Reduced Hemoglobin 5.6 %THb (0-5.0); Total Hemoglobin 9.2 g/dL (12.0-18.0); pH ABG 7.332 (7.350-7.450)
[2023-04-19 05:15] LABS: Arterial Blood Gas PEEP 8 cmH2O; Arterial Blood Gas Tidal Volume 450 ml; Arterial Blood Gas Vent Mode CMV; Arterial Blood Gas Ventilator rate 20 /MIN; Device VENTILATOR; Modified Allen's Test Pass; Site Drawn RIGHT RADIAL
[2023-04-19 05:55] LABS: Hematocrit 25.2 % (37.0-47.0); Hemoglobin 7.6 g/dL (12.0-15.0); Mean Corpuscular HGB Conc 30.2 g/dl (32-36); Mean Corpuscular Hemoglobin 29.2 pg (26-34); Mean Corpuscular Volume 96.9 fl (80-100); Mean Platelet Volume 11.1 fl (7.4-10.4); Platelet Count Result 148 k/mm3 (150-375); Red Cell Distribution Width 15.3 % (11.5-14.5); White Blood Count 9.5 K/mm3 (4.5-10.0)
[2023-04-19 06:04] LABS: Alanine Aminotransferase 19 U/L (6-35); Albumin Level 3.8 g/dL (3.5-5.1); Alkaline Phosphatase 91 U/L (38-126); Anion Gap 12 mmol/L (8-16); Aspartate Amino Transferase 47 U/L (14-36); Bilirubin,Total 0.3 mg/dL (0.2-1.3); Blood Urea Nitrogen 81 mg/dL (7-17); Calcium 8.9 mg/dL (8.4-10.2); Carbon Dioxide 18 mmol/L (22-30); Chloride 114 mmol/L (98-107); Estimated CRCL calculation 17 ml/min; Estimated Glomerular Filt Rate 9; Glucose 108 mg/dL (65-110); Magnesium 2.2 mg/dL (1.6-2.3); Partial Thromboplastin Time 39.6 SECONDS (22.3-36.8); Potassium 4.6 mmol/L (3.4-5.0); Sodium 144 mmol/L (137-145)
[2023-04-19] MEDS: CENTRAL LINE FLUSH 10 ML IV PUSH ×3 (06:56→21:04)
[2023-04-19] MEDS: ATORVASTATIN 40 MG TABLET 80 MG FEED TUBE (07:48)
[2023-04-19] MEDS: PANTOPRAZOLE SODIUM IV 40 MG VIAL IV PUSH ×2 (07:48→21:02)
[2023-04-19] MEDS: carvediloL 6.25 MG TABLET FEED TUBE ×2 (08:01→21:02)
[2023-04-19] MEDS: ASPIRIN 81 MG CHEWABLE TABLET FEED TUBE (08:02)
--- NOTE | 2023-04-19 09:08 | WPDINTPN ---
Progress Note: A&P Assessment and Plan (1) Acute and chronic respiratory failure with hypoxia: Code(s): J96.21 - Acute and chronic respiratory failure with hypoxia Status: Acute Assessment and Plan: Acute on chronic multifactorial Respiratory failure secondary to congestive heart failure, COPD, possible community-acquired pneumonia COVID-19 pneumonia Patient now intubated and sedated and on mechanical ventilation Continue full mechanical ventilation support to prevent hypoxemia/hypercarbia and end organ damage. Chest x-ray reviewed. Chest CT was ordered but patient is too big to fit in our CT scanner ABG reviewed. FiO2 is 40% peep is at 8 Continue dexamethasone, bronchodilators, empiric antibiotics for community-acquired pneumonia on holding sedation patient became tachypneic and asynchronous with the ventilator. I tried PSV but patient's RSBI was very high and patient was needing pressure support of 20 to get adequate tidal volumes (2) Acute exacerbation of congestive heart failure: Code(s): I50.9 - Heart failure, unspecified Status: Acute Assessment and Plan: Most recent echo 10/27 showed EF of 25-30% and diastolic dysfunction echo Summary ? 1. Technically difficult exam because of obesity/definity contrast injectedto improve visualization. ? 2. Left ventricular dilation with severe global systolic dysfunction ejection fraction of 30%. ? 3. Diastolic noncompliance. ? 4. Left atrial enlarged. ? 5. No obvious valve dysfunction although quality of the exam is very challenging. (3) Sepsis: Qualifiers: Acute renal failure type: unspecified Sepsis acute organ dysfunction status: with acute organ dysfunction Sepsis type: sepsis due to unspecified organism Severe sepsis acute organ dysfunction type: acute renal failure Code(s): A41.9 - Sepsis, unspecified organism Status: Acute Assessment and Plan: patient currently Rocephin and doxycycline for community-acquired pneumonia febrile overnight I will send repeat blood sputum cultures. replace Pastor. Check UA and urine culture from hemodynamically stable (4) AMS (altered mental status): Qualifiers: Altered mental status type: somnolence Qualified Code(s): R40.0 - Somnolence Code(s): R41.82 - Altered mental status, unspecified Status: Acute Assessment and Plan: Secondary to hypoxia seizure Head CT shows old infarctions Normal tSH and ammonia Now sedated and intubated (5) Acute exacerbation of chronic obstructive airways disease: Code(s): J44.1 - Chronic obstructive pulmonary disease with (acute) exacerbation Status: Acute Assessment and Plan: See above (6) Pneumonia: Code(s): J18.9 - Pneumonia, unspecified organism Status: Acute Assessment and Plan: See above (7) COVID-19: Code(s): U07.1 - COVID-19 Status: Acute Assessment and Plan: Tested positive for COVID-19 although respiratory failure appears multifactorial with most likely component of CHF COPD Continue dexamethasone Isolation (8) Acute on chronic renal failure: Code(s): N17.9 - Acute kidney failure, unspecified; N18.9 - Chronic kidney disease, unspecified Status: Acute Assessment and Plan: Patient appears to have chronic kidney disease and creatinine is now elevated. Multifactorial Renal ultrasound showedIncomplete visualization of the left kidney. Findings suggestive of medical renal disease. Unremarkable cK and urine electrolytes Creatinine worsened BUN 81 she still producing decent amount of urine holding diuretics Monitor urine output electrolytes and creatinine At risk for needing PATIENT ATTENDANT Nephrology consulted (9) Hyperkalemia: Code(s): E87.5 - Hyperkalemia Status: Acute Assessment and Plan: Secondary to ARMIN, supplemental potassium, Aldactone and acidosis Discontinued potassium and Aldactone Potassium level improved
[2023-04-19] MEDS: ACETAMINOPHEN 650 MG SUPPOSITORY RECTAL (09:57)
[2023-04-19 10:49] LABS: Add Urine Microscopic? YES; Amorphous Sediment Urine Present; Appearance Urine Turbid (Clear); Bacteria Urine None Seen /hpf; Bilirubin Urine Negative (Negative); Blood Urine 2+ (Negative); Color Urine Yellow (Yellow); Glucose Urine UA Negative (Negative); Granular Casts Urine Present /lpf; Ketones Urine Negative (Negative); Leukocyte Esterase Ur Trace LEU/UL (Negative); Need Manual Microscopic Reviewed; Nitrate Urine Negative (Negative); Non Pathogenic Casts >20; Protein Urine 3+ mg/dL (Negative); Specific Grav Ur 1.013 (1.001-1.035); Squamous Epithelial Cell Urine Moderate /hpf (Few); Urobilinogen Urine 0.2 mg/dL (<2.0)
--- NOTE | 2023-04-19 10:49 | PCFNICU ---
ICU Rounding Note: Pt current nutrition is Nepro at 40 ml/hr. Last recorded weight is 154 kg, up from 153.1 kg on admit. Bowel Motility:+Bm reported 04/19 Labs Reviewed:GFR 9, BUN 81,Cr 5.9, Hct 25.2,Hgb 7.6 Meds Noted:Propofol 25 ztez=262 kcals,Precedex, Protonix Skin: WNL Additional Notes:Patient remains on mechanical vent and tube feedings of Nepro at 40 ml/hr and tolerating. Total Nutrition with propofol infusion: 1827 kcals/71 gms protein/639 ml water. Flush 30 ml q 4 hours. Agree with diet orders at this time. Following daily in ICU rounds. Monitoring meds, tube feeding tolerance, labs, output, weights, plan of care and reassessing every Monday and Monday.
--- NOTE | 2023-04-19 12:02 | PM.PNNEP ---
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 (3) Acute and chronic respiratory failure with hypoxia: Code(s): J96.21 - Acute and chronic respiratory failure with hypoxia Status: Acute Assessment and Plan: due to congestive heart failure, COPD, possible pneumonia, and COVID-19 pneumonia intubated and on mechanical ventilation continue current therapy - steroids/bronchodilators/antibiotics weaning when more stable unable to do CT imaging due to body habitus (4) Pneumonia: Code(s): J18.9 - Pneumonia, unspecified organism Status: Acute Assessment and Plan: suggestive by admission imaging on antibiotics follow culture data continue supportive care (5) Acute exacerbation of congestive heart failure: Code(s): I50.9 - Heart failure, unspecified Status: Acute Assessment and Plan: last echo 10/27 showed EF of 25-30% and diastolic dysfunction most recent echo with EF ~ 30% as well volume overload on presentation diuretics on hold due to #1 -- however, may need to resume given CXR findings follow volume status closely (6) AMS (altered mental status): Qualifiers: Altered mental status type: somnolence Qualified Code(s): R40.0 - Somnolence Code(s): R41.82 - Altered mental status, unspecified Status: Acute Assessment and Plan: secondary to seizure likely precipirated by hypoxia however, based on discussion with family, she appears at baseline Head CT shows old infarctions reassess mentation onec off ventilator (7) Non-ST elevation (NSTEMI) myocardial infarction: Code(s): I21.4 - Non-ST elevation (NSTEMI) myocardial infarction Status: Acute Assessment and Plan: chronically elevated troponins Cardiology recommendations noted known cardiomyopathy by last and recent echo conservative therapy (8) Anemia: Code(s): D64.9 - Anemia, unspecified Status: Acute Assessment and Plan: PRBC transfusion per protocol heparin discontinued empiric PPI related to ARMIN, CKD, and acute illness(?) follow trend of H/H consider empiric ANA use (9) COVID-19: Code(s): U07.1 - COVID-19 Status: Acute Assessment and Plan: noted COVID-19 positivity in ER however, respiratory failure appears multifactorial with most likely component of CHF + COPD on dexamethasone and remdesivir per protocol Will continue to follow. Subjective Date/time seen: 04/19/23 12:02 Interval history: Follow-up for acute kidney injury/acute renal failure on chronic kidney disease. No real significant change - remains intubated/sedated and on mechanical ventilation; hemodynamially stable off vasopressor therapy; renal function/creatinine a bit worse but with reasonable urine output; febrile since this morning. Exam Narrative: General: Large female intubated/sedated and on mechanical ventilation Heart: normal S1 and S2; no rub Lungs: coarse b
--- NOTE | 2023-04-19 12:02 | P.PNNP_ITS ---
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 (3) Acute and chronic respiratory failure with hypoxia: Code(s): J96.21 - Acute and chronic respiratory failure with hypoxia Status: Acute Assessment and Plan: * due to congestive heart failure, COPD, possible pneumonia, and COVID-19 pneumonia * intubated and on mechanical ventilation * continue current therapy - steroids/bronchodilators/antibiotics * weaning when more stable * unable to do CT imaging due to body habitus (4) Pneumonia: Code(s): J18.9 - Pneumonia, unspecified organism Status: Acute Assessment and Plan: * suggestive by admission imaging * on antibiotics * follow culture data * continue supportive care (5) Acute exacerbation of congestive heart failure: Code(s): I50.9 - Heart failure, unspecified Status: Acute Assessment and Plan: * last echo 10/27 showed EF of 25-30% and diastolic dysfunction * most recent echo with EF ~ 30% as well * volume overload on presentation * diuretics on hold due to #1 -- however, may need to resume given CXR findings * follow volume status closely (6) AMS (altered mental status): Qualifiers: Altered mental status type: somnolence Qualified Code(s): R40.0 - Somnolence Code(s): R41.82 - Altered mental status, unspecified Status: Acute Assessment and Plan: * secondary to seizure likely precipirated by hypoxia * however, based on discussion with family, she appears at baseline * Head CT shows old infarctions * reassess mentation onec off ventilator (7) Non-ST elevation (NSTEMI) myocardial infarction: Code(s): I21.4 - Non-ST elevation (NSTEMI) myocardial infarction Status: Acute Assessment and Plan: * chronically elevated troponins * Cardiology recommendations noted * known cardiomyopathy by last and recent echo * conservative therapy (8) Anemia: Code(s): D64.9 - Anemia, unspecified Status: Acute Assessment and Plan: * PRBC transfusion per protocol * heparin discontinued * empiric PPI * related to ARMIN, CKD, and acute illness(?) * follow trend of H/H * consider empiric ANA use (9) COVID-19: Code(s): U07.1 - COVID-19 Status: Acute Assessment and Plan: * noted COVID-19 positivity in ER * however, respiratory failure appears multifactorial with most likely component of CHF + COPD * on dexamethasone and remdesivir per protocol Will continue to follow. Subjective Date/time seen: 04/19/23
[2023-04-19 12:10] LABS: Glucose Point of Care 133 mg/dl (65-105)
[2023-04-19] MEDS: ACETAMINOPHEN ELIXIR 325 MG/10.15 ML UDC 650 MG FEED TUBE ×2 (15:15→21:03)
[2023-04-19] MEDS: MINERAL OIL/WHITE PETROLATUM OINTMENT 1 APPLIC EACH EYE ×2 (15:28→21:02)
[2023-04-19] MEDS: CENTRAL LINE FLUSH 20 ML IV PUSH (15:29)
[2023-04-19] MEDS: PROPOFOL IV EMULSION 100 ML 27.45 MG IV CONT ×3 (16:15→22:17)
[2023-04-19 18:07] LABS: Glucose Point of Care 101 mg/dl (65-105)
--- NOTE | 2023-04-19 18:24 | PC.NURSE ---
Preliminary report called from OR. Pt received 2 units of PRBCs. Will continue to monitor
[2023-04-19] MEDS: cefTRIAXone 2 GM/NS 100 ML 2 GM/100 ML BAG IVPB (21:02)
[2023-04-20] VITALS (29 sets, daily range): BP systolic 112–146; BP diastolic 71–106; PULSE 74–89; RESP 20–24; TEMP 37.1–38.4; O2SAT 94–100
[2023-04-20 00:19] LABS: Glucose Point of Care 104 mg/dl (65-105)
[2023-04-20] MEDS: PROPOFOL IV EMULSION 100 ML 27.45 MG IV CONT (01:58)
[2023-04-20 04:42] LABS: Alveolar/Arterial O2 Gradient 84.6 mmHg; Base Excess ABG -6.3 mEq/l (+/-2.0); Carboxyhemoglobin 0.3 % THb (0-2.0); Fractional Inspired Oxygen 30 %; HCO3 ABG 18.2 mEq/l (22.0-26.0); Methemoglobin ABG 0.1 %THb (0-1.5); Oxygen Content ABG 11.1 %vol (16.0-22.0); Oxygen Saturation ABG 96.9 % (95.0-100.0); Oxyhemoglobin 95.3 % THb (90.0-100.0); PCO2 ABG 32.2 mmHg (35.0-45.0); PO2 ABG 91.5 mmHg (80.0-100.0); PO2 FiO2 Ratio Arterial Blood 3.05 %; Reduced Hemoglobin 4.3 %THb (0-5.0); Total Hemoglobin 8.2 g/dL (12.0-18.0); pH ABG 7.371 (7.350-7.450)
[2023-04-20 04:44] LABS: Arterial Blood Gas PEEP 8 cmH2O; Arterial Blood Gas Tidal Volume 450 ml; Arterial Blood Gas Vent Mode CMV; Arterial Blood Gas Ventilator rate 20 /MIN; Device VENTILATOR; Modified Allen's Test Pass; Site Drawn RIGHT RADIAL
[2023-04-20] MEDS: CENTRAL LINE FLUSH 10 ML IV PUSH ×3 (05:27→20:12)
[2023-04-20] MEDS: PROPOFOL IV EMULSION 100 ML 22.88 MG IV CONT (05:36)
[2023-04-20 05:51] LABS: Hemoglobin 7.6 g/dL (12.0-15.0); Mean Corpuscular HGB Conc 30.4 g/dl (32-36); Mean Corpuscular Hemoglobin 29.3 pg (26-34); Mean Corpuscular Volume 96.5 fl (80-100); Mean Platelet Volume 11.1 fl (7.4-10.4); Platelet Count Result 151 k/mm3 (150-375); Red Blood Count 2.59 M/mm3 (4.2-5.4); Red Cell Distribution Width 15.2 % (11.5-14.5)
[2023-04-20 06:25] LABS: Alanine Aminotransferase 22 U/L (6-35); Albumin Level 3.5 g/dL (3.5-5.1); Alkaline Phosphatase 91 U/L (38-126); Anion Gap 13 mmol/L (8-16); Aspartate Amino Transferase 51 U/L (14-36); Bilirubin,Total 0.3 mg/dL (0.2-1.3); Blood Urea Nitrogen 94 mg/dL (7-17); Calcium 8.9 mg/dL (8.4-10.2); Carbon Dioxide 18 mmol/L (22-30); Chloride 115 mmol/L (98-107); Estimated CRCL calculation 17 ml/min; Estimated Glomerular Filt Rate 9; Glucose 99 mg/dL (65-110); Magnesium 2.4 mg/dL (1.6-2.3); Potassium 4.4 mmol/L (3.4-5.0); Sodium 146 mmol/L (137-145)
[2023-04-20] MEDS: ASPIRIN 81 MG CHEWABLE TABLET FEED TUBE (07:59)
[2023-04-20] MEDS: carvediloL 6.25 MG TABLET FEED TUBE ×2 (07:59→20:11)
[2023-04-20] MEDS: ATORVASTATIN 40 MG TABLET 80 MG FEED TUBE (08:00)
[2023-04-20] MEDS: PANTOPRAZOLE SODIUM IV 40 MG VIAL IV PUSH ×2 (08:02→20:11)
[2023-04-20] MEDS: MINERAL OIL/WHITE PETROLATUM OINTMENT 1 APPLIC EACH EYE ×2 (08:26→20:12)
[2023-04-20 10:16] LABS: Triglycerides 234 mg/dL (<150)
[2023-04-20] MEDS: dexmedeTOMIDine 400 MCG/100 ML 400 MCG/100 ML BAG 7.7 MCG IV CONT (10:28)
[2023-04-20] MEDS: PROPOFOL IV EMULSION 100 ML 13.73 MG IV CONT (10:32)
[2023-04-20] MEDS: TOLNAFTATE 1% POWDER 45 GM BTL 1 APPLIC TOPICAL ×2 (10:41→20:12)
--- NOTE | 2023-04-20 10:51 | PCFNICU ---
ICU Rounding Note: Pt current nutrition is Nepro at 40 ml/hr. Last recorded weight is 153.7 kg, stable Bowel Motility:+BM reported 04/19 Labs Reviewed:Cr 6.0,BUN 94, GFR 9, NA 146 Meds Noted:Decadron,Precedex, Coreg, Protonix Skin: WNL Additional Notes: Patient remains on mechanical vent and tube feedings Nepro at 40 ml/hr. tube feedings are being tolerating per nursing. Flush 30 ml q 4 hours. Will monitor Na level for possible increased needs in water flush, up 146 today. Propofol is on hold. Renal Labs elevated, nephrology has been consulted. Agree with diet orders. Following daily in ICU rounds. Monitoring meds, tube feeding tolerance, labs, output, weights, plan of care every Monday and Monday.
--- NOTE | 2023-04-20 11:17 | P.CDI_ITS ---
CDI Query Clarification Request Documented history of CHF. CHF noted in the assessment and plan. Elevated BNP on 04/15/23 lab work. Pulmonary edema noted on the 04/16/23 chest xray. Lasix and Entresto listed as home medications. Acute on chronic multifactorial Respiratory failure secondary to congestive heart failure, COPD, possible community-acquired pneumonia COVID-19 pneumonia Please specify type and acuity of heart failure if known. * Acute * Chronic * Acute on Chronic * Unknown * Systolic * Diastolic * Combined Systolic and Diastolic * Unknown <Sue Ryan RN - Last Filed: 04/20/23 11:22> Clarified Diagnosis Clarified Diagnosis: Acute on chronic systolic congestive Heart failure <Shon Carroll MD - Last Filed: 04/20/23 12:21> Provider Comments Acute on chronic systolic congestive Heart failure <Shon Carroll MD - Last Filed: 04/20/23 12:21>
--- NOTE | 2023-04-20 11:48 | P.PNNP_ITS ---
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 (3) Acute and chronic respiratory failure with hypoxia: Code(s): J96.21 - Acute and chronic respiratory failure with hypoxia Status: Acute Assessment and Plan: * due to congestive heart failure, COPD, possible pneumonia, and COVID-19 pneumonia * intubated and on mechanical ventilation * continue current therapy - steroids/bronchodilators/antibiotics * weaning when more stable * unable to do CT imaging due to body habitus (4) Pneumonia: Code(s): J18.9 - Pneumonia, unspecified organism Status: Acute Assessment and Plan: * suggestive by admission imaging * on antibiotics * follow culture data * continue supportive care (5) Acute exacerbation of congestive heart failure: Code(s): I50.9 - Heart failure, unspecified Status: Acute Assessment and Plan: * last echo 10/27 showed EF of 25-30% and diastolic dysfunction * most recent echo with EF ~ 30% as well * volume overload on presentation * diuretics on hold due to #1 -- however, may need to resume given CXR findings * follow volume status closely (6) AMS (altered mental status): Qualifiers: Altered mental status type: somnolence Qualified Code(s): R40.0 - Somnolence Code(s): R41.82 - Altered mental status, unspecified Status: Acute Assessment and Plan: * secondary to seizure likely precipirated by hypoxia * however, based on discussion with family, she appears at baseline * Head CT shows old infarctions * reassess mentation onec off ventilator (7) Non-ST elevation (NSTEMI) myocardial infarction: Code(s): I21.4 - Non-ST elevation (NSTEMI) myocardial infarction Status: Acute Assessment and Plan: * chronically elevated troponins * Cardiology recommendations noted * known cardiomyopathy by last and recent echo * conservative therapy (8) Anemia: Code(s): D64.9 - Anemia, unspecified Status: Acute Assessment and Plan: * PRBC transfusion per protocol * heparin discontinued * empiric PPI * related to ARMIN, CKD, and acute illness(?) * follow trend of H/H * consider empiric ANA use (9) COVID-19: Code(s): U07.1 - COVID-19 Status: Acute Assessment and Plan: * noted COVID-19 positivity in ER * however, respiratory failure appears multifactorial with most likely component of CHF + COPD * on dexamethasone per protocol Will continue to follow. Subjective Date/time seen: 04/20/23 1
--- NOTE | 2023-04-20 11:48 | PM.PNNEP ---
Progress Note: A&P Assessment and Plan (1) ARMIN (acute kidney injury): Code(s): N17.9 - Acute kidney failure, unspecified Status: Acute Assessment and Plan: continue to fluctuate but making urine suspect ATN due to infection (COVID + pneumonia) and CHF exacerbation evaluation noted: renal ultrasound with medical renal disease (incomplete visualization of left kidney) CPK okay UA with blood and protein along with granular casts urine electrolytes never done remains at risk for SPECIMEN PROCESSOR/dialysis elevated BUN maybe partly related to steroid use possible peak/plateau of creatinine today (?) follow repeat labs and UOP (2) Stage 3a chronic kidney disease: Code(s): N18.31 - Chronic kidney disease, stage 3a Status: Chronic Assessment and Plan: creatinine was running around 1.4 - 1.5mg/dl in November 2021 presumably secondary to hypertension and vascular disease as well as CHF there may be a component of CKD progression since last admission... (3) Acute and chronic respiratory failure with hypoxia: Code(s): J96.21 - Acute and chronic respiratory failure with hypoxia Status: Acute Assessment and Plan: due to congestive heart failure, COPD, possible pneumonia, and COVID-19 pneumonia intubated and on mechanical ventilation continue current therapy - steroids/bronchodilators/antibiotics weaning when more stable unable to do CT imaging due to body habitus (4) Pneumonia: Code(s): J18.9 - Pneumonia, unspecified organism Status: Acute Assessment and Plan: suggestive by admission imaging on antibiotics follow culture data continue supportive care (5) Acute exacerbation of congestive heart failure: Code(s): I50.9 - Heart failure, unspecified Status: Acute Assessment and Plan: last echo 10/27 showed EF of 25-30% and diastolic dysfunction most recent echo with EF ~ 30% as well volume overload on presentation diuretics on hold due to #1 -- however, may need to resume given CXR findings follow volume status closely (6) AMS (altered mental status): Qualifiers: Altered mental status type: somnolence Qualified Code(s): R40.0 - Somnolence Code(s): R41.82 - Altered mental status, unspecified Status: Acute Assessment and Plan: secondary to seizure likely precipirated by hypoxia however, based on discussion with family, she appears at baseline Head CT shows old infarctions reassess mentation onec off ventilator (7) Non-ST elevation (NSTEMI) myocardial infarction: Code(s): I21.4 - Non-ST elevation (NSTEMI) myocardial infarction Status: Acute Assessment and Plan: chronically elevated troponins Cardiology recommendations noted known cardiomyopathy by last and recent echo conservative therapy (8) Anemia: Code(s): D64.9 - Anemia, unspecified Status: Acute Assessment and Plan: PRBC transfusion per protocol heparin discontinued empiric PPI related to ARMIN, CKD, and acute illness(?) follow trend of H/H consider empiric ANA use (9) COVID-19: Code(s): U07.1 - COVID-19 Status: Acute Assessment and Plan: noted COVID-19 positivity in ER however, respiratory failure appears multifactorial with most likely component of CHF + COPD on dexamethasone per protocol Will continue to follow. Subjective Date/time seen: 04/20/23 11:48 Interval history: Follow-up for acute kidney injury/acute renal failure on chronic kidney disease. Continues to make reasonable urine output although BUN/creatinine remains elevated; remains intubated/sedated and on mechanical ventilation; fevers overnight but afebrile since midnight/this AM; no other significan change. Exam Narrative: General: Large female intubated/sedated and on mechanical ventilation Heart: normal S1 and S2; no rub Lungs: coarse breath sounds
--- NOTE | 2023-04-20 12:21 | WPDINTPN ---
Progress Note: A&P Assessment and Plan (1) Acute and chronic respiratory failure with hypoxia: Code(s): J96.21 - Acute and chronic respiratory failure with hypoxia Status: Acute Assessment and Plan: Acute on chronic multifactorial Respiratory failure secondary to congestive heart failure, COPD, possible community-acquired pneumonia COVID-19 pneumonia Patient now intubated and sedated and on mechanical ventilation Continue full mechanical ventilation support to prevent hypoxemia/hypercarbia and end organ damage. Chest x-ray reviewed. Chest CT was ordered but patient is too big to fit in our CT scanner ABG reviewed. FiO2 is 30% peep is at 8 Continue dexamethasone, bronchodilators, empiric antibiotics for community-acquired pneumonia Sedation holiday was performed and patient was placed on PSV trial but patient quickly became tachypneic with low tidal volume with abdominal breathing and asynchrony with the ventilator. Patient had to be sedated and placed back on CMV. Will start patient on Precedex infusion and trial again to rule out anxiety component (2) Acute exacerbation of congestive heart failure: Code(s): I50.9 - Heart failure, unspecified Status: Acute Assessment and Plan: Most recent echo 10/27 showed EF of 25-30% and diastolic dysfunction echo Summary ? 1. Technically difficult exam because of obesity/definity contrast injectedto improve visualization. ? 2. Left ventricular dilation with severe global systolic dysfunction ejection fraction of 30%. ? 3. Diastolic noncompliance. ? 4. Left atrial enlarged. ? 5. No obvious valve dysfunction although quality of the exam is very challenging. (3) Sepsis: Qualifiers: Sepsis type: sepsis due to unspecified organism Sepsis acute organ dysfunction status: with acute organ dysfunction Severe sepsis acute organ dysfunction type: acute renal failure Acute renal failure type: unspecified Code(s): A41.9 - Sepsis, unspecified organism Status: Acute Assessment and Plan: patient currently Rocephin and doxycycline for community-acquired pneumonia febrile overnight 04/19 repeat blood sputum cultures. r Pastor replaced UA suggestive of UTI. Urine culture pending hemodynamically stable (4) AMS (altered mental status): Qualifiers: Altered mental status type: somnolence Qualified Code(s): R40.0 - Somnolence Code(s): R41.82 - Altered mental status, unspecified Status: Acute Assessment and Plan: Secondary to hypoxia seizure Head CT shows old infarctions Normal tSH and ammonia Now sedated and intubated. Follows commands intermittently on sedation holiday (5) Acute exacerbation of chronic obstructive airways disease: Code(s): J44.1 - Chronic obstructive pulmonary disease with (acute) exacerbation Status: Acute Assessment and Plan: See above (6) Pneumonia: Code(s): J18.9 - Pneumonia, unspecified organism Status: Acute Assessment and Plan: See above (7) COVID-19: Code(s): U07.1 - COVID-19 Status: Acute Assessment and Plan: Tested positive for COVID-19 although respiratory failure appears multifactorial with most likely component of CHF COPD Continue dexamethasone Isolation (8) Acute on chronic renal failure: Code(s): N17.9 - Acute kidney failure, unspecified; N18.9 - Chronic kidney disease, unspecified Status: Acute Assessment and Plan: Patient appears to have chronic kidney disease and creatinine is now elevated. Multifactorial Renal ultrasound showedIncomplete visualization of the left kidney. Findings suggestive of medical renal disease. Unremarkable cK and urine electrolytes Creatinine and BUN further increased but patient still producing decent amount of urine holding diuretics Monitor urine output electrolytes and creatinine. No indication for emergent dialysis at this time At risk for needing REGIONAL RECRUITER Nephrology
[2023-04-20 14:06] LABS: Glucose Point of Care 115 mg/dl (65-105)
[2023-04-20] MEDS: ACETAMINOPHEN ELIXIR 325 MG/10.15 ML UDC 650 MG FEED TUBE ×2 (17:10→23:32)
[2023-04-20] MEDS: dexmedeTOMIDine 400 MCG/100 ML 400 MCG/100 ML BAG 11.55 MCG IV CONT (19:08)
[2023-04-20 19:13] LABS: Glucose Point of Care 117 mg/dl (65-105)
[2023-04-20] MEDS: cefTRIAXone 2 GM/NS 100 ML 2 GM/100 ML BAG IVPB (20:04)
[2023-04-20 23:42] LABS: Glucose Point of Care 110 mg/dl (65-105)
[2023-04-21] VITALS (32 sets, daily range): BP systolic 148–167; BP diastolic 86–110; PULSE 75–107; RESP 21–33; TEMP 37.7–38.7; O2SAT 93–99
[2023-04-21] MEDS: dexmedeTOMIDine 400 MCG/100 ML 400 MCG/100 ML BAG 11.55 MCG IV CONT (03:49)
[2023-04-21] MEDS: ACETAMINOPHEN ELIXIR 325 MG/10.15 ML UDC 650 MG FEED TUBE (03:49)
[2023-04-21 05:33] LABS: Alveolar/Arterial O2 Gradient 97.8 mmHg; Base Excess ABG -6.3 mEq/l (+/-2.0); Carboxyhemoglobin 0.3 % THb (0-2.0); Fractional Inspired Oxygen 30 %; HCO3 ABG 18.7 mEq/l (22.0-26.0); Methemoglobin ABG 0.1 %THb (0-1.5); Oxygen Content ABG 16.5 %vol (16.0-22.0); Oxygen Saturation ABG 94.2 % (95.0-100.0); Oxyhemoglobin 93.5 % THb (90.0-100.0); PCO2 ABG 35.6 mmHg (35.0-45.0); PO2 ABG 74.3 mmHg (80.0-100.0); PO2 FiO2 Ratio Arterial Blood 2.48 %; Reduced Hemoglobin 6.1 %THb (0-5.0); Total Hemoglobin 12.5 g/dL (12.0-18.0); pH ABG 7.338 (7.350-7.450)
[2023-04-21] MEDS: CENTRAL LINE FLUSH 10 ML IV PUSH ×3 (06:03→20:28)
[2023-04-21 06:18] LABS: Basophils Percent Auto 0.4 % (0.2-1.2); Eosinophils Absolute Auto 0.3 K/mm3 (0-0.3); Eosinophils Percent Auto 3.5 % (0-4.4); Hematocrit 26.1 % (37.0-47.0); Hemoglobin 7.9 g/dL (12.0-15.0); Immature Granulocyte Absolute 0.08 K/mm3 (0.00-0.031); Lymphocytes Absolute Auto 1.92 K/mm3 (0.9-3.2); Lymphocytes Percent Auto 24.3 % (18.3-44.2); Mean Corpuscular HGB Conc 30.3 g/dl (32-36); Mean Corpuscular Hemoglobin 28.9 pg (26-34); Mean Corpuscular Volume 95.6 fl (80-100); Mean Platelet Volume 11.2 fl (7.4-10.4); Monocytes Absolute Auto 0.7 K/mm3 (0.1-0.6); Monocytes Percent Auto 9.2 % (2.6-8.5); Neutrophils Absolute Auto 4.9 K/mm3 (1.3-6.7); Neutrophils Percent Auto 61.6 % (45.5-73.1); Platelet Count Result 163 k/mm3 (150-375); Red Blood Count 2.73 M/mm3 (4.2-5.4); Red Cell Distribution Width 15.1 % (11.5-14.5); White Blood Count 7.9 K/mm3 (4.5-10.0)
[2023-04-21 06:28] LABS: Arterial Blood Gas PEEP 8 cmH2O; Arterial Blood Gas Vent Mode CMV; Arterial Blood Gas Ventilator rate 20 /MIN; Device VENTILATOR; Modified Allen's Test Pass; Site Drawn LEFT RADIAL
[2023-04-21 06:29] LABS: Arterial Blood Gas Tidal Volume 450 ml
[2023-04-21 06:32] LABS: Alanine Aminotransferase 23 U/L (6-35); Albumin Level 3.7 g/dL (3.5-5.1); Alkaline Phosphatase 88 U/L (38-126); Anion Gap 12 mmol/L (8-16); Aspartate Amino Transferase 43 U/L (14-36); Bilirubin,Total 0.3 mg/dL (0.2-1.3); Blood Urea Nitrogen 95 mg/dL (7-17); Carbon Dioxide 19 mmol/L (22-30); Chloride 116 mmol/L (98-107); Estimated CRCL calculation 17 ml/min; Estimated Glomerular Filt Rate 9; Glucose 136 mg/dL (65-110); Potassium 4.9 mmol/L (3.4-5.0); Sodium 147 mmol/L (137-145)
--- NOTE | 2023-04-21 09:00 | PM.PNNEP ---
Progress Note: A&P Assessment and Plan (1) ARMIN (acute kidney injury): Code(s): N17.9 - Acute kidney failure, unspecified Status: Acute Assessment and Plan: slight improvement noted (decrease in creatinine and BUN stable) suspect ATN due to infection (COVID + pneumonia) and CHF exacerbation evaluation noted: renal ultrasound with medical renal disease (incomplete visualization of left kidney) CPK okay UA with blood and protein along with granular casts urine electrolytes never done remains at risk for CHIN STRAP SEWER/dialysis elevated BUN maybe partly related to steroid use possible peak/plateau with creatinine of 6.0mg/dl (on 04/20) follow repeat labs and UOP (2) Stage 3a chronic kidney disease: Code(s): N18.31 - Chronic kidney disease, stage 3a Status: Chronic Assessment and Plan: creatinine was running around 1.4 - 1.5mg/dl in November 2021 presumably secondary to hypertension and vascular disease as well as CHF there may be a component of CKD progression since last admission... (3) Acute and chronic respiratory failure with hypoxia: Code(s): J96.21 - Acute and chronic respiratory failure with hypoxia Status: Acute Assessment and Plan: due to congestive heart failure, COPD, possible pneumonia, and COVID-19 pneumonia intubated and on mechanical ventilation continue current therapy - steroids/bronchodilators/antibiotics weaning when more stable unable to do CT imaging due to body habitus (4) Pneumonia: Code(s): J18.9 - Pneumonia, unspecified organism Status: Acute Assessment and Plan: suggestive by admission imaging on antibiotics follow culture data continue supportive care (5) Acute exacerbation of congestive heart failure: Code(s): I50.9 - Heart failure, unspecified Status: Acute Assessment and Plan: last echo 10/27 showed EF of 25-30% and diastolic dysfunction most recent echo with EF ~ 30% as well volume overload on presentation diuretics on hold due to #1 -- however, may need to resume given CXR findings follow volume status closely (6) AMS (altered mental status): Qualifiers: Altered mental status type: somnolence Qualified Code(s): R40.0 - Somnolence Code(s): R41.82 - Altered mental status, unspecified Status: Acute Assessment and Plan: secondary to seizure likely precipirated by hypoxia however, based on discussion with family, she appears at baseline Head CT shows old infarctions reassess mentation onec off ventilator (7) Non-ST elevation (NSTEMI) myocardial infarction: Code(s): I21.4 - Non-ST elevation (NSTEMI) myocardial infarction Status: Acute Assessment and Plan: chronically elevated troponins Cardiology recommendations noted known cardiomyopathy by last and recent echo conservative therapy (8) Anemia: Code(s): D64.9 - Anemia, unspecified Status: Acute Assessment and Plan: stable if not improving PRBC transfusion per protocol empiric PPI related to ARMIN, CKD, and acute illness(?) follow trend of H/H consider empiric ANA use if H/H drops firther (9) COVID-19: Code(s): U07.1 - COVID-19 Status: Acute Assessment and Plan: noted COVID-19 positivity in ER however, respiratory failure appears multifactorial with most likely component of CHF + COPD on dexamethasone per protocol Will continue to follow. Subjective Date/time seen: 04/21/23 09:00 Interval history: Follow-up for acute kidney injury/acute renal failure on chronic kidney disease. Slight improvement in creatinine by AM labs in association with increased in urine output noted; remains hemodynamically stable without the need for vasopressor therapy; continue to remain on ventilator support; febrile in the last 24 hours. Exam Narrative: General: Large female intubated/sedated and on me
--- NOTE | 2023-04-21 09:00 | P.PNNP_ITS ---
Progress Note: A&P Assessment and Plan (1) ARMIN (acute kidney injury): Code(s): N17.9 - Acute kidney failure, unspecified Status: Acute Assessment and Plan: * slight improvement noted (decrease in creatinine and BUN stable) * suspect ATN due to infection (COVID + pneumonia) and CHF exacerbation * evaluation noted: * renal ultrasound with medical renal disease (incomplete visualization of left kidney) * CPK okay * UA with blood and protein along with granular casts * urine electrolytes never done * remains at risk for RADIOLOGY TECH/dialysis * elevated BUN maybe partly related to steroid use * possible peak/plateau with creatinine of 6.0mg/dl (on 04/20) * follow repeat labs and UOP (2) Stage 3a chronic kidney disease: Code(s): N18.31 - Chronic kidney disease, stage 3a Status: Chronic Assessment and Plan: * creatinine was running around 1.4 - 1.5mg/dl in November 2021 * presumably secondary to hypertension and vascular disease as well as CHF * there may be a component of CKD progression since last admission... (3) Acute and chronic respiratory failure with hypoxia: Code(s): J96.21 - Acute and chronic respiratory failure with hypoxia Status: Acute Assessment and Plan: * due to congestive heart failure, COPD, possible pneumonia, and COVID-19 pneumonia * intubated and on mechanical ventilation * continue current therapy - steroids/bronchodilators/antibiotics * weaning when more stable * unable to do CT imaging due to body habitus (4) Pneumonia: Code(s): J18.9 - Pneumonia, unspecified organism Status: Acute Assessment and Plan: * suggestive by admission imaging * on antibiotics * follow culture data * continue supportive care (5) Acute exacerbation of congestive heart failure: Code(s): I50.9 - Heart failure, unspecified Status: Acute Assessment and Plan: * last echo 10/27 showed EF of 25-30% and diastolic dysfunction * most recent echo with EF ~ 30% as well * volume overload on presentation * diuretics on hold due to #1 -- however, may need to resume given CXR findings * follow volume status closely (6) AMS (altered mental status): Qualifiers: Altered mental status type: somnolence Qualified Code(s): R40.0 - Somnolence Code(s): R41.82 - Altered mental status, unspecified Status: Acute Assessment and Plan: * secondary to seizure likely precipirated by hypoxia * however, based on discussion with family, she appears at baseline * Head CT shows old infarctions * reassess mentation onec off ventilator (7) Non-ST elevation (NSTEMI) myocardial infarction: Code(s): I21.4 - Non-ST elevation (NSTEMI) myocardial infarction Status: Acute Assessment and Plan: * chronically elevated troponins * Cardiology recommendations noted * known cardiomyopathy by last and recent echo * conservative therapy (8) Anemia: Code(s): D64.9 - Anemia, unspecified Status: Acute Assessment and Plan: * stable if not improving * PRBC transfusion per protocol * empiric PPI * related to ARMIN, CKD, and acute illness(?) * follow trend of H/H * consider empiric ANA use if H/H drops firther (9) COVID-19: Code(s): U07.1 - COVID-19 Status: Acute Assessment and Plan: * noted COVID-19 positivity in ER * however, respiratory failure appears multifactorial with most likely component of CHF + COPD * on dexamethasone per protocol Will continue to follow.
[2023-04-21] MEDS: MINERAL OIL/WHITE PETROLATUM OINTMENT 1 APPLIC EACH EYE ×2 (09:40→20:23)
[2023-04-21] MEDS: ATORVASTATIN 40 MG TABLET 80 MG FEED TUBE (09:40)
[2023-04-21] MEDS: TOLNAFTATE 1% POWDER 45 GM BTL 1 APPLIC TOPICAL ×2 (09:40→20:28)
[2023-04-21] MEDS: ASPIRIN 81 MG CHEWABLE TABLET FEED TUBE (09:40)
[2023-04-21] MEDS: carvediloL 6.25 MG TABLET FEED TUBE (09:40)
[2023-04-21] MEDS: PANTOPRAZOLE SODIUM IV 40 MG VIAL IV PUSH ×2 (09:40→20:23)
--- NOTE | 2023-04-21 10:04 | WPDINTPN ---
Progress Note: A&P Assessment and Plan (1) Acute and chronic respiratory failure with hypoxia: Code(s): J96.21 - Acute and chronic respiratory failure with hypoxia Status: Acute Assessment and Plan: Acute on chronic multifactorial Respiratory failure secondary to congestive heart failure, COPD, possible community-acquired pneumonia COVID-19 pneumonia Patient now intubated and sedated and on mechanical ventilation Continue full mechanical ventilation support to prevent hypoxemia/hypercarbia and end organ damage. Chest x-ray reviewed. Chest CT was ordered but patient is too big to fit in our CT scanner ABG reviewed. FiO2 is 30% peep is at 8 Continue dexamethasone, bronchodilators, empiric antibiotics for community-acquired pneumonia 04/21 Sedation holiday was performed and patient was placed on PSV trial but patient quickly became tachypneic with low tidal volume with abdominal breathing and asynchrony with the ventilator. Pressure support during chauhan to 02/12 to get adequate tidal volume. Will continue as tolerated. Continue Precedex infusion (2) Acute exacerbation of congestive heart failure: Code(s): I50.9 - Heart failure, unspecified Status: Acute Assessment and Plan: Most recent echo 10/27 showed EF of 25-30% and diastolic dysfunction echo Summary ? 1. Technically difficult exam because of obesity/definity contrast injectedto improve visualization. ? 2. Left ventricular dilation with severe global systolic dysfunction ejection fraction of 30%. ? 3. Diastolic noncompliance. ? 4. Left atrial enlarged. ? 5. No obvious valve dysfunction although quality of the exam is very challenging. (3) Sepsis: Qualifiers: Sepsis type: sepsis due to unspecified organism Sepsis acute organ dysfunction status: with acute organ dysfunction Severe sepsis acute organ dysfunction type: acute renal failure Acute renal failure type: unspecified Code(s): A41.9 - Sepsis, unspecified organism Status: Acute Assessment and Plan: patient currently Rocephin and doxycycline for community-acquired pneumonia Continues to have fever but her WBC is normal 04/19 repeat blood urine sputum cultures have been negative. Pastor was replaced and UA suggestive of UTI. Hemodynamically stable (4) AMS (altered mental status): Qualifiers: Altered mental status type: somnolence Qualified Code(s): R40.0 - Somnolence Code(s): R41.82 - Altered mental status, unspecified Status: Acute Assessment and Plan: Secondary to hypoxia seizure Head CT shows old infarctions Normal tSH and ammonia Now sedated and intubated. Follows commands intermittently on Precedex (5) Acute exacerbation of chronic obstructive airways disease: Code(s): J44.1 - Chronic obstructive pulmonary disease with (acute) exacerbation Status: Acute Assessment and Plan: See above (6) Pneumonia: Code(s): J18.9 - Pneumonia, unspecified organism Status: Acute Assessment and Plan: See above (7) COVID-19: Code(s): U07.1 - COVID-19 Status: Acute Assessment and Plan: Tested positive for COVID-19 although respiratory failure appears multifactorial with most likely component of CHF COPD Continue dexamethasone Isolation (8) Acute on chronic renal failure: Code(s): N17.9 - Acute kidney failure, unspecified; N18.9 - Chronic kidney disease, unspecified Status: Acute Assessment and Plan: Patient appears to have chronic kidney disease and creatinine is now elevated. Multifactorial Renal ultrasound showedIncomplete visualization of the left kidney. Findings suggestive of medical renal disease. Unremarkable cK and urine electrolytes Creatinine appears to be marginally better and BUN stable. Urine output improved Monitor urine output electrolytes and creatinine. No indication for emergent dialysis at this time At risk for needing PROPERTIES SUPERVISOR Nephrology following
--- NOTE | 2023-04-21 10:45 | PCNFU ---
Nutrition Follow-Up Complete: Increased protein needs related to mechanical ventilation as evidenced by need for full tube feeding Goal: Meet estimated protein energy needs Patient will continue current goal. Pt current nutrition is Nepro at 40 ml/hr Last recorded weight is 153.6 kg, stable Bowel Motility:+Bm reported 04/21 Labs Reviewed:Glu 136, BUN 95, Cr 5.8, Na 147, Hct 26.1,Hgb 7.9 Meds Noted:Precedex, Protonix, Decadron. Skin: WNL Additional Notes: Patient remains on mechanical vent. Tube feedings are being tolerated of Nepro at 40 ml/hr. Total nutrition at this time 1584 kcals/71 gms protein/639 ml water. Meeting 94% kcal needs at 11 kcal/kg and 77% protein needs at 0.6-0.8 gm/kg. Patient renal labs remain elevated,no dialysis noted at this time. Flush increased to 150 ml q 4 hours, Na up to 147 today. Agree with diet orders. Monitoring meds, tube feeding tolerance, labs, output, weights, plan of care Follow daily in ICU rounds, reassess Monday and Monday
[2023-04-21 10:58] LABS: Alveolar/Arterial O2 Gradient 96.5 mmHg; Base Excess ABG -7.1 mEq/l (+/-2.0); Device VENTILATOR; Fractional Inspired Oxygen 30 %; HCO3 ABG 18.1 mEq/l (22.0-26.0); Modified Allen's Test Pass; Oxygen Content ABG 11.9 %vol (16.0-22.0); Oxygen Saturation ABG 94.6 % (95.0-100.0); Oxyhemoglobin 93.3 % THb (90.0-100.0); PCO2 ABG 34.8 mmHg (35.0-45.0); PO2 ABG 76.5 mmHg (80.0-100.0); PO2 FiO2 Ratio Arterial Blood 2.55 %; Site Drawn LEFT RADIAL; pH ABG 7.333 (7.350-7.450)
[2023-04-21 10:59] LABS: Arterial Blood Gas PEEP 8 cmH2O; Arterial Blood Gas Pressure Support 5 cmH2O; Arterial Blood Gas Vent Mode SPONTANEOUS
[2023-04-21] MEDS: racEPINEPHrine 2.25% NEBU SOLN 0.5 ML VIAL.NEB INHALATION (11:18)
[2023-04-21] MEDS: methylPREDNISolone SOD SUCC 125 MG VIAL 40 MG IV PUSH ×2 (11:25→17:32)
[2023-04-21 12:01] LABS: Glucose Point of Care 142 mg/dl (65-105)
[2023-04-21] MEDS: LABETALOL HCL INJ 100 MG/20 ML VIAL 20 MG IV PUSH ×2 (14:17→18:47)
--- NOTE | 2023-04-21 15:36 | PM.IMPN ---
Progress Note: A&P Assessment and Plan (1) Acute and chronic respiratory failure with hypoxia: Code(s): J96.21 - Acute and chronic respiratory failure with hypoxia Status: Acute Assessment and Plan: Acute on chronic multifactorial Respiratory failure secondary to congestive heart failure, COPD, possible community-acquired pneumonia COVID-19 pneumonia Patient intubated and sedated and on mechanical ventilation Chest x-ray reviewed. Chest CT was ordered but patient is too big to fit in our CT scanner Continue dexamethasone, bronchodilators, empiric antibiotics for community-acquired pneumonia 04/21 extubated to BiPAP per plastic block boiler reliner (2) Acute exacerbation of congestive heart failure: Code(s): I50.9 - Heart failure, unspecified Status: Acute Assessment and Plan: Most recent echo 10/27 showed EF of 25-30% and diastolic dysfunction echo Summary ? 1. Technically difficult exam because of obesity/definity contrast injectedto improve visualization. ? 2. Left ventricular dilation with severe global systolic dysfunction ejection fraction of 30%. ? 3. Diastolic noncompliance. ? 4. Left atrial enlarged. ? 5. No obvious valve dysfunction although quality of the exam is very challenging. (3) Sepsis: Qualifiers: Sepsis type: sepsis due to unspecified organism Sepsis acute organ dysfunction status: with acute organ dysfunction Severe sepsis acute organ dysfunction type: acute renal failure Acute renal failure type: unspecified Code(s): A41.9 - Sepsis, unspecified organism Status: Acute Assessment and Plan: patient currently Rocephin and doxycycline for community-acquired pneumonia Continues to have fever but her WBC is normal 04/19 repeat blood urine sputum cultures have been negative. Pastor was replaced and UA suggestive of UTI. Hemodynamically stable (4) AMS (altered mental status): Qualifiers: Altered mental status type: somnolence Qualified Code(s): R40.0 - Somnolence Code(s): R41.82 - Altered mental status, unspecified Status: Acute Assessment and Plan: Secondary to hypoxia seizure Head CT shows old infarctions Normal tSH and ammonia Remains on Precedex drip (5) Acute exacerbation of chronic obstructive airways disease: Code(s): J44.1 - Chronic obstructive pulmonary disease with (acute) exacerbation Status: Acute Assessment and Plan: See above (6) Pneumonia: Code(s): J18.9 - Pneumonia, unspecified organism Status: Acute Assessment and Plan: See above (7) COVID-19: Code(s): U07.1 - COVID-19 Status: Acute Assessment and Plan: Tested positive for COVID-19 although respiratory failure appears multifactorial with most likely component of CHF COPD Continue dexamethasone Isolation (8) Acute on chronic renal failure: Code(s): N17.9 - Acute kidney failure, unspecified; N18.9 - Chronic kidney disease, unspecified Status: Acute Assessment and Plan: Patient appears to have chronic kidney disease and creatinine is now elevated. Multifactorial Renal ultrasound showedIncomplete visualization of the left kidney. Findings suggestive of medical renal disease. Unremarkable cK and urine electrolytes Creatinine appears to be marginally better and BUN stable. Urine output improved Monitor urine output electrolytes and creatinine. No indication for emergent dialysis at this time At risk for needing INSPECTING MACHINE ADJUSTER Nephrology following and discussed with nephrology (9) Hyperkalemia: Code(s): E87.5 - Hyperkalemia Status: Acute Assessment and Plan: Secondary to ARMIN, supplemental potassium, Aldactone and acidosis Discontinued potassium and Aldactone Potassium level improved (10) Non-ST elevation (NSTEMI) myocardial infarction: Code(s): I21.4 - Non-ST elevation (NSTEMI) myocardial infarction Status: Acute Assessment and Plan: Patient has chronically
[2023-04-21 18:25] LABS: Glucose Point of Care 96 mg/dl (65-105)
[2023-04-21] MEDS: cefTRIAXone 2 GM/NS 100 ML 2 GM/100 ML BAG IVPB (20:27)
[2023-04-21] MEDS: PHENYTOIN SODIUM INJ 100 MG/2 ML VIAL (*BKC) 200 MG IV PUSH (21:27)
[2023-04-22] VITALS (23 sets, daily range): BP systolic 135–178; BP diastolic 96–138; PULSE 64–120; RESP 17–73; TEMP 36.8–37.5; O2SAT 96–100
[2023-04-22] MEDS: methylPREDNISolone SOD SUCC 125 MG VIAL 40 MG IV PUSH ×2 (01:06→06:07)
[2023-04-22 01:29] LABS: Glucose Point of Care 83 mg/dl (65-105)
[2023-04-22 06:10] LABS: Basophils Percent Auto 0.3 % (0.2-1.2); Eosinophils Absolute Auto 0.2 K/mm3 (0-0.3); Hematocrit 28.1 % (37.0-47.0); Hemoglobin 8.3 g/dL (12.0-15.0); Immature Granulocyte Absolute 0.16 K/mm3 (0.00-0.031); Immature Granulocyte Percent A 1.7 % (0-0.5); Lymphocytes Absolute Auto 1.76 K/mm3 (0.9-3.2); Lymphocytes Percent Auto 18.5 % (18.3-44.2); Mean Corpuscular HGB Conc 29.5 g/dl (32-36); Mean Corpuscular Hemoglobin 28.4 pg (26-34); Mean Corpuscular Volume 96.2 fl (80-100); Mean Platelet Volume 10.5 fl (7.4-10.4); Monocytes Absolute Auto 0.8 K/mm3 (0.1-0.6); Monocytes Percent Auto 8.5 % (2.6-8.5); Neutrophils Absolute Auto 6.6 K/mm3 (1.3-6.7); Platelet Count Result 196 k/mm3 (150-375); Red Blood Count 2.92 M/mm3 (4.2-5.4); Red Cell Distribution Width 14.7 % (11.5-14.5); White Blood Count 9.5 K/mm3 (4.5-10.0)
[2023-04-22] MEDS: CENTRAL LINE FLUSH 10 ML IV PUSH ×3 (06:15→22:43)
[2023-04-22 06:21] LABS: Alanine Aminotransferase 26 U/L (6-35); Albumin Level 3.8 g/dL (3.5-5.1); Alkaline Phosphatase 87 U/L (38-126); Anion Gap 11 mmol/L (8-16); Aspartate Amino Transferase 40 U/L (14-36); Bilirubin,Total 0.4 mg/dL (0.2-1.3); Blood Urea Nitrogen 100 mg/dL (7-17); Calcium 9.5 mg/dL (8.4-10.2); Carbon Dioxide 20 mmol/L (22-30); Chloride 117 mmol/L (98-107); Estimated CRCL calculation 20 ml/min; Estimated Glomerular Filt Rate 11; Glucose 95 mg/dL (65-110); Potassium 5.9 mmol/L (3.4-5.0); Sodium 148 mmol/L (137-145)
[2023-04-22 07:41] LABS: Hypochromasia 1+ (NORMAL); Platelet Estimate Adequate (Adequate); Schistocytes None Seen (NORMAL)
[2023-04-22] MEDS: PANTOPRAZOLE SODIUM IV 40 MG VIAL IV PUSH ×2 (08:25→22:42)
--- NOTE | 2023-04-22 09:17 | P.PNNP_ITS ---
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 (3) Acute and chronic respiratory failure with hypoxia: Code(s): J96.21 - Acute and chronic respiratory failure with hypoxia Status: Acute Assessment and Plan: * improving * due to congestive heart failure, COPD, possible pneumonia, and COVID-19 pneumonia * extubated on 04/21 * continue current therapy - steroids/bronchodilators/antibiotics * not opposed to trial of IV diuretics to maintain respiratory status * unable to do CT imaging due to body habitus (4) Pneumonia: Code(s): J18.9 - Pneumonia, unspecified organism Status: Acute Assessment and Plan: * suggestive by admission imaging * on antibiotics * follow culture data * continue supportive care (5) Acute exacerbation of congestive heart failure: Code(s): I50.9 - Heart failure, unspecified Status: Acute Assessment and Plan: * last echo 10/27 showed EF of 25-30% and diastolic dysfunction * most recent echo with EF ~ 30% as well * volume overload on presentation * diuretics initially on hold -- consider trial to help respiratory status * follow volume status closely (6) AMS (altered mental status): Qualifiers: Altered mental status type: somnolence Qualified Code(s): R40.0 - Somnolence Code(s): R41.82 - Altered mental status, unspecified Status: Acute Assessment and Plan: * secondary to seizure likely precipirated by hypoxia * however, based on discussion with family, she appears at baseline currently * Head CT shows on admission with old infarctions * follow trend (7) Non-ST elevation (NSTEMI) myocardial infarction: Code(s): I21.4 - Non-ST elevation (NSTEMI) myocardial infarction Status: Acute Assessment and Plan: * chronically elevated troponins * Cardiology recommendations noted * known cardiomyopathy by last and recent echo * conservative therapy (8) Anemia: Code(s): D64.9 - Anemia, unspecified Status: Acute Assessment and Plan: * stable if not improving * PRBC transfusion per protocol * empiric PPI * related to ARMIN, CKD, and acute illness(?) * follow trend of H/H * consider empiric ANA use if H/H drops firther (9) COVID-19: Code(s): U07.1 - COVID-19 Status: Acute Assessment and Plan: * noted COVID-19 positivity in ER * however, respiratory failure appears multifactorial with most likely comp
--- NOTE | 2023-04-22 09:17 | PM.PNNEP ---
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 (3) Acute and chronic respiratory failure with hypoxia: Code(s): J96.21 - Acute and chronic respiratory failure with hypoxia Status: Acute Assessment and Plan: improving due to congestive heart failure, COPD, possible pneumonia, and COVID-19 pneumonia extubated on 04/21 continue current therapy - steroids/bronchodilators/antibiotics not opposed to trial of IV diuretics to maintain respiratory status unable to do CT imaging due to body habitus (4) Pneumonia: Code(s): J18.9 - Pneumonia, unspecified organism Status: Acute Assessment and Plan: suggestive by admission imaging on antibiotics follow culture data continue supportive care (5) Acute exacerbation of congestive heart failure: Code(s): I50.9 - Heart failure, unspecified Status: Acute Assessment and Plan: last echo 10/27 showed EF of 25-30% and diastolic dysfunction most recent echo with EF ~ 30% as well volume overload on presentation diuretics initially on hold -- consider trial to help respiratory status follow volume status closely (6) AMS (altered mental status): Qualifiers: Altered mental status type: somnolence Qualified Code(s): R40.0 - Somnolence Code(s): R41.82 - Altered mental status, unspecified Status: Acute Assessment and Plan: secondary to seizure likely precipirated by hypoxia however, based on discussion with family, she appears at baseline currently Head CT shows on admission with old infarctions follow trend (7) Non-ST elevation (NSTEMI) myocardial infarction: Code(s): I21.4 - Non-ST elevation (NSTEMI) myocardial infarction Status: Acute Assessment and Plan: chronically elevated troponins Cardiology recommendations noted known cardiomyopathy by last and recent echo conservative therapy (8) Anemia: Code(s): D64.9 - Anemia, unspecified Status: Acute Assessment and Plan: stable if not improving PRBC transfusion per protocol empiric PPI related to ARMIN, CKD, and acute illness(?) follow trend of H/H consider empiric ANA use if H/H drops firther (9) COVID-19: Code(s): U07.1 - COVID-19 Status: Acute Assessment and Plan: noted COVID-19 positivity in ER however, respiratory failure appears multifactorial with most likely component of CHF + COPD on dexamethasone per protocol Will continue to follow. Subjective Date/time seen: 04/22/23 09:05 Interval history: Follow-up for acute kidney injury/acute renal failure on chronic kidney disease. Extubated yesterday after weaning trial but had issues with stridor and respiratory distress that improved with racemic epinephrine + solumedrol and use of BiPAP; on nasal canula at the time of my visit but seems a bit tachypneic so may need
[2023-04-22] MEDS: TOLNAFTATE 1% POWDER 45 GM BTL 1 APPLIC TOPICAL ×2 (09:30→22:43)
--- NOTE | 2023-04-22 09:35 | PC.NURSE ---
Patient restless, tachycardic and tachypneic. RT switched patient to BiPaP, Precedex gtt restarted per Dr. Carroll.
[2023-04-22] MEDS: FUROSEMIDE INJ 100 MG/10 ML VIAL 80 MG IV PUSH (09:41)
[2023-04-22] MEDS: DEXTROSE 5% IN WATER 500 ML 100 ML IV CONT (09:45)
[2023-04-22] MEDS: PHENYTOIN SODIUM INJ 100 MG/2 ML VIAL (*BKC) 200 MG IV PUSH ×2 (09:50→22:42)
[2023-04-22] MEDS: DEXTROSE 50% 25 GM/50 ML SYRINGE IV PUSH (10:04)
[2023-04-22] MEDS: INSULIN HUMAN REGULAR (*BKC) 100 UNITS/ML 10 UNITS IV PUSH (10:04)
[2023-04-22] MEDS: ALTEPLASE 2 MG VIAL (CATHFLO) IV PUSH (10:11)
[2023-04-22] MEDS: LABETALOL HCL INJ 100 MG/20 ML VIAL 20 MG IV PUSH (10:14)
[2023-04-22] MEDS: dexmedeTOMIDine 400 MCG/100 ML 400 MCG/100 ML BAG 11.55 MCG IV CONT ×2 (10:42→18:00)
--- NOTE | 2023-04-22 12:19 | WPDINTPN ---
Progress Note: A&P Assessment and Plan (1) Acute and chronic respiratory failure with hypoxia: Code(s): J96.21 - Acute and chronic respiratory failure with hypoxia Status: Acute Assessment and Plan: Acute on chronic multifactorial Respiratory failure secondary to congestive heart failure, COPD, possible community-acquired pneumonia COVID-19 pneumonia Patient now intubated and sedated and on mechanical ventilation Continue full mechanical ventilation support to prevent hypoxemia/hypercarbia and end organ damage. Chest x-ray reviewed. Chest CT was ordered but patient is too big to fit in our CT scanner ABG reviewed. FiO2 is 30% peep is at 8 Continue dexamethasone, bronchodilators, empiric antibiotics for community-acquired pneumonia 04/21 patient was extubated after weaning trial. She had stridor and was given racemic epi and Solu-Medrol. She later need BiPAP due to increased work of breathing and desaturation. She was taken off for few hours in the evening and then was later replaced on BiPAP at night 04/22 she was weaned off from BiPAP to nasal cannula this morning but later after few hours had to be placed back on due to tachypnea, wheeze work of breathing and desaturation. Continue BiPAP as needed and at night. Diuretics. She remains at risk of requiring re-intubation. Continue monitor closely. (2) Acute exacerbation of congestive heart failure: Code(s): I50.9 - Heart failure, unspecified Status: Acute Assessment and Plan: Most recent echo 10/27 showed EF of 25-30% and diastolic dysfunction echo Summary ? 1. Technically difficult exam because of obesity/definity contrast injectedto improve visualization. ? 2. Left ventricular dilation with severe global systolic dysfunction ejection fraction of 30%. ? 3. Diastolic noncompliance. ? 4. Left atrial enlarged. ? 5. No obvious valve dysfunction although quality of the exam is very challenging. (3) Sepsis: Qualifiers: Acute renal failure type: unspecified Sepsis acute organ dysfunction status: with acute organ dysfunction Sepsis type: sepsis due to unspecified organism Severe sepsis acute organ dysfunction type: acute renal failure Code(s): A41.9 - Sepsis, unspecified organism Status: Acute Assessment and Plan: patient currently Rocephin and doxycycline for community-acquired pneumonia Continues to have fever but her WBC is normal 04/19 repeat blood urine sputum cultures have been negative. Pastor was replaced and UA suggestive of UTI. Hemodynamically stable (4) AMS (altered mental status): Qualifiers: Altered mental status type: somnolence Qualified Code(s): R40.0 - Somnolence Code(s): R41.82 - Altered mental status, unspecified Status: Acute Assessment and Plan: Secondary to hypoxia seizure Head CT shows old infarctions Normal tSH and ammonia Now awake and partially oriented. P is to be close to baseline (5) Acute exacerbation of chronic obstructive airways disease: Code(s): J44.1 - Chronic obstructive pulmonary disease with (acute) exacerbation Status: Acute Assessment and Plan: See above (6) Pneumonia: Code(s): J18.9 - Pneumonia, unspecified organism Status: Acute Assessment and Plan: See above (7) COVID-19: Code(s): U07.1 - COVID-19 Status: Acute Assessment and Plan: Tested positive for COVID-19 although respiratory failure appears multifactorial with most likely component of CHF COPD Continue dexamethasone Isolation (8) Acute on chronic renal failure: Code(s): N17.9 - Acute kidney failure, unspecified; N18.9 - Chronic kidney disease, unspecified Status: Acute Assessment and Plan: Patient appears to have chronic kidney disease and creatinine is now elevated. Multifactorial Renal ultrasound showedIncomplete visualization of the left kidney. Findings suggestive of medical renal disease. Unremarka
--- NOTE | 2023-04-22 13:36 | PCSTNOTE ---
Order received for bedside swallowing evaluation. Patient on bipap and unable to be evaluated. Consulted with MD and nurse. Will remain on list for evaluation tomorrow.
[2023-04-22] MEDS: cefTRIAXone 2 GM/NS 100 ML 2 GM/100 ML BAG IVPB (22:41)
[2023-04-22] MEDS: MINERAL OIL/WHITE PETROLATUM OINTMENT 1 APPLIC EACH EYE (22:42)
[2023-04-22 22:54] LABS: Glucose Point of Care 79 mg/dl (65-105)
[2023-04-22 22:54] LABS: Glucose Point of Care 153 mg/dl (65-105)
[2023-04-22 23:27] LABS: Glucose Point of Care 89 mg/dl (65-105)
[2023-04-23] VITALS (26 sets, daily range): BP systolic 134–169; BP diastolic 91–117; PULSE 64–78; RESP 14–23; TEMP 36.9–37.6; O2SAT 99–100
[2023-04-23] MEDS: dexmedeTOMIDine 400 MCG/100 ML 400 MCG/100 ML BAG 11.55 MCG IV CONT ×2 (02:01→10:10)
[2023-04-23 06:06] LABS: Basophils Percent Auto 0.5 % (0.2-1.2); Eosinophils Absolute Auto 0.4 K/mm3 (0-0.3); Eosinophils Percent Auto 4.9 % (0-4.4); Hematocrit 28.7 % (37.0-47.0); Hemoglobin 8.5 g/dL (12.0-15.0); Immature Granulocyte Absolute 0.08 K/mm3 (0.00-0.031); Lymphocytes Absolute Auto 1.73 K/mm3 (0.9-3.2); Mean Corpuscular HGB Conc 29.6 g/dl (32-36); Mean Corpuscular Hemoglobin 28.6 pg (26-34); Mean Corpuscular Volume 96.6 fl (80-100); Mean Platelet Volume 11.2 fl (7.4-10.4); Monocytes Absolute Auto 0.7 K/mm3 (0.1-0.6); Neutrophils Absolute Auto 5.3 K/mm3 (1.3-6.7); Neutrophils Percent Auto 64.6 % (45.5-73.1); Platelet Count Result 207 k/mm3 (150-375); Red Blood Count 2.97 M/mm3 (4.2-5.4); Red Cell Distribution Width 14.2 % (11.5-14.5); White Blood Count 8.2 K/mm3 (4.5-10.0)
[2023-04-23 06:16] LABS: Alanine Aminotransferase 24 U/L (6-35); Albumin Level 3.7 g/dL (3.5-5.1); Alkaline Phosphatase 90 U/L (38-126); Anion Gap 12 mmol/L (8-16); Aspartate Amino Transferase 31 U/L (14-36); Bilirubin,Total 0.3 mg/dL (0.2-1.3); Blood Urea Nitrogen 110 mg/dL (7-17); Calcium 9.7 mg/dL (8.4-10.2); Carbon Dioxide 19 mmol/L (22-30); Chloride 116 mmol/L (98-107); Estimated CRCL calculation 18 ml/min; Estimated Glomerular Filt Rate 10; Glucose 117 mg/dL (65-110); Potassium 5.6 mmol/L (3.4-5.0); Sodium 147 mmol/L (137-145)
[2023-04-23] MEDS: CENTRAL LINE FLUSH 10 ML IV PUSH ×3 (06:53→20:45)
[2023-04-23] MEDS: cloNIDine HCL 0.1 MG TABLET PO ×3 (08:54→17:45)
[2023-04-23] MEDS: PANTOPRAZOLE SODIUM IV 40 MG VIAL IV PUSH ×2 (08:54→20:43)
[2023-04-23] MEDS: SODIUM BICARBONATE TAB 650 MG TABLET PO ×2 (08:54→17:45)
[2023-04-23] MEDS: ATORVASTATIN 40 MG TABLET 80 MG FEED TUBE (08:54)
[2023-04-23] MEDS: ASPIRIN 81 MG CHEWABLE TABLET FEED TUBE (08:54)
[2023-04-23] MEDS: carvediloL 6.25 MG TABLET FEED TUBE ×2 (08:55→20:43)
[2023-04-23] MEDS: PHENYTOIN SODIUM INJ 100 MG/2 ML VIAL (*BKC) 200 MG IV PUSH ×2 (08:56→20:55)
[2023-04-23] MEDS: TOLNAFTATE 1% POWDER 45 GM BTL 1 APPLIC TOPICAL ×2 (08:57→20:45)
[2023-04-23] MEDS: MINERAL OIL/WHITE PETROLATUM OINTMENT 1 APPLIC EACH EYE ×2 (09:20→20:44)
--- NOTE | 2023-04-23 10:03 | WPDINTPN ---
Progress Note: A&P Assessment and Plan (1) Acute and chronic respiratory failure with hypoxia: Code(s): J96.21 - Acute and chronic respiratory failure with hypoxia Status: Acute Assessment and Plan: Acute on chronic multifactorial Respiratory failure secondary to congestive heart failure, COPD, possible community-acquired pneumonia COVID-19 pneumonia Patient now intubated and sedated and on mechanical ventilation Continue full mechanical ventilation support to prevent hypoxemia/hypercarbia and end organ damage. Chest x-ray reviewed. Chest CT was ordered but patient is too big to fit in our CT scanner ABG reviewed. FiO2 is 30% peep is at 8 Continue dexamethasone, bronchodilators, empiric antibiotics for community-acquired pneumonia 04/21 patient was extubated after weaning trial. She had stridor and was given racemic epi and Solu-Medrol. She later need BiPAP due to increased work of breathing and desaturation. She was taken off for few hours in the evening and then was later replaced on BiPAP at night 04/22 she was weaned off from BiPAP to nasal cannula this morning but later after few hours had to be placed back on due to tachypnea, wheeze work of breathing and desaturation. Continue BiPAP as needed and at night. Diuretics. She remains at risk of requiring re-intubation. Continue monitor closely. 04/23 on BiPAP overnight. I will transition her back to nasal cannula 2 L this morning. She is doing well at this time. Continue monitor closely. Use BiPAP on p.r.n. basis and at night to transition her. She is morbidly obese which makes it difficult. (2) Acute exacerbation of congestive heart failure: Code(s): I50.9 - Heart failure, unspecified Status: Acute Assessment and Plan: Most recent echo 10/27 showed EF of 25-30% and diastolic dysfunction echo Summary ? 1. Technically difficult exam because of obesity/definity contrast injectedto improve visualization. ? 2. Left ventricular dilation with severe global systolic dysfunction ejection fraction of 30%. ? 3. Diastolic noncompliance. ? 4. Left atrial enlarged. ? 5. No obvious valve dysfunction although quality of the exam is very challenging. (3) Sepsis: Qualifiers: Sepsis type: sepsis due to unspecified organism Sepsis acute organ dysfunction status: with acute organ dysfunction Severe sepsis acute organ dysfunction type: acute renal failure Acute renal failure type: unspecified Code(s): A41.9 - Sepsis, unspecified organism Status: Acute Assessment and Plan: patient currently Rocephin and doxycycline for community-acquired pneumonia Continues to have fever but her WBC is normal / repeat blood urine sputum cultures have been negative. Pastor was replaced and UA suggestive of UTI. Hemodynamically stable (4) AMS (altered mental status): Qualifiers: Altered mental status type: somnolence Qualified Code(s): R40.0 - Somnolence Code(s): R41.82 - Altered mental status, unspecified Status: Acute Assessment and Plan: Secondary to hypoxia seizure Head CT shows old infarctions Normal tSH and ammonia Now awake and partially oriented. After discussion with patient's family appears that patient had speaks few words at long term and is not oriented baseline. Her mental status now appears close to her baseline (5) Acute exacerbation of chronic obstructive airways disease: Code(s): J44.1 - Chronic obstructive pulmonary disease with (acute) exacerbation Status: Acute Assessment and Plan: See above (6) Pneumonia: Code(s): J18.9 - Pneumonia, unspecified organism Status: Acute Assessment and Plan: See above (7) COVID-19: Code(s): U07.1 - COVID-19 Status: Acute Assessment and Plan: Tested positive for COVID-19 although respiratory failure appears multifactorial with most likely component of CHF COPD Continue dexamethasone Isolation (
--- NOTE | 2023-04-23 11:31 | PCSTNOTE ---
Bedside swallowing evaluation completed. Patient seen in ICU with head of bed elevated to achieve upright positioning in bed, with assistance of RN. Patient awake and attentive responding to yes/no questions inconsistently. No verbal communication initiated by patient. Modified oral peripheral examination reveals oral mechanism to be structurally within normal limits. Apparent bilateral labial and lingual weakness, unable to fully assess as patient is not following verbal commands completely or consistently. Trials of thin liquid (water) by spoon within functional limits. Trials of water by straw followed by coughing, throat clearing, and wet gurgly vocal quality indicating possible aspiration. Trials of mildly thickened liquids by spoon and cup and pureed consistency by spoon within normal limits other than mild generalized weakness and delay. No signs of aspiration with mildly thickened or pureed consistency. Solid consistency not trialed due to patient unable to follow directions for safety for choking risk with solids. Recommendations: pureed diet with mildly thickened liquids. Swallowing precaution recommendations include: no straws, position patient upright when eating or drinking, no thin liquids or water. Patient was unable to feed self during this evaluation, so staff assistance will be required when eating or drinking. Monitor patient closely for any signs of aspiration including coughing during or after eating or drinking. Please note that silent aspiration cannot be ruled out at bedside and can be evaluated with a modified barium swallow study. No further speech therapy is recommended for this patient. Thank you for this referral.
[2023-04-23] MEDS: SODIUM ZIRCONIUM CYCLOSILICATE 10 GM POWD.PACK PO ×2 (12:11→17:45)
[2023-04-23] MEDS: LABETALOL HCL INJ 100 MG/20 ML VIAL 20 MG IV PUSH ×2 (12:11→17:46)
[2023-04-23 12:48] LABS: Glucose Point of Care 130 mg/dl (65-105)
--- NOTE | 2023-04-23 13:45 | PM.PNNEP ---
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 (3) Hyperkalemia: Code(s): E87.5 - Hyperkalemia Status: Acute Assessment and Plan: presumably due to ARMIN, entresto, spironolactone, and K+ supplements on lokelaz on sodium bicarbonate as well (4) Acute and chronic respiratory failure with hypoxia: Code(s): J96.21 - Acute and chronic respiratory failure with hypoxia Status: Acute Assessment and Plan: resolving/improving due to congestive heart failure, COPD, possible pneumonia, and COVID-19 pneumonia extubated on 04/21 continue current therapy - steroids/bronchodilators/antibiotics not opposed to trial of IV diuretics to maintain respiratory status unable to do CT imaging due to body habitus (5) Hypernatremia: Code(s): E87.0 - Hyperosmolality and hypernatremia Status: Acute Assessment and Plan: due to free water deficit given issues with CHF, PRN runs of D5W IVFs follow repeat sodium levels (6) Pneumonia: Code(s): J18.9 - Pneumonia, unspecified organism Status: Acute Assessment and Plan: suggestive by admission imaging on antibiotics follow culture data continue supportive care (7) Acute exacerbation of congestive heart failure: Code(s): I50.9 - Heart failure, unspecified Status: Acute Assessment and Plan: last echo 10/27 showed EF of 25-30% and diastolic dysfunction most recent echo with EF ~ 30% as well volume overload on presentation diuretics initially on hold -- consider trial to help respiratory status follow volume status closely (8) AMS (altered mental status): Qualifiers: Altered mental status type: somnolence Qualified Code(s): R40.0 - Somnolence Code(s): R41.82 - Altered mental status, unspecified Status: Acute Assessment and Plan: secondary to seizure likely precipirated by hypoxia however, based on discussion with family, she appears at baseline currently Head CT shows on admission with old infarctions follow trend (9) Anemia: Code(s): D64.9 - Anemia, unspecified Status: Acute Assessment and Plan: stable if not improving PRBC transfusion per protocol empiric PPI related to ARMIN, CKD, and acute illness(?) follow trend of H/H consider empiric ANA use if H/H drops firther (10) COVID-19: Code(s): U07.1 - COVID-19 Status: Acute Assessment and Plan: noted COVID-19 positivity in ER however, respiratory failure appears multifactorial with most likely component of CHF + COPD on dexamethasone per protocol Will continue to follow. Subjective Date/time seen: 04/23/23 13:45 Interval history: Follow-up for acute kidney injury/acute renal failure on chronic kidney disease. Respiratory status remains relatively stable -- has required on/off BiPAP since extubat
--- NOTE | 2023-04-23 13:45 | P.PNNP_ITS ---
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 (3) Hyperkalemia: Code(s): E87.5 - Hyperkalemia Status: Acute Assessment and Plan: * presumably due to ARMIN, entresto, spironolactone, and K+ supplements * on lokelma * on sodium bicarbonate as well (4) Acute and chronic respiratory failure with hypoxia: Code(s): J96.21 - Acute and chronic respiratory failure with hypoxia Status: Acute Assessment and Plan: * resolving/improving * due to congestive heart failure, COPD, possible pneumonia, and COVID-19 pneumonia * extubated on 04/21 * continue current therapy - steroids/bronchodilators/antibiotics * not opposed to trial of IV diuretics to maintain respiratory status * unable to do CT imaging due to body habitus (5) Hypernatremia: Code(s): E87.0 - Hyperosmolality and hypernatremia Status: Acute Assessment and Plan: * due to free water deficit * given issues with CHF, PRN runs of D5W IVFs * follow repeat sodium levels (6) Pneumonia: Code(s): J18.9 - Pneumonia, unspecified organism Status: Acute Assessment and Plan: * suggestive by admission imaging * on antibiotics * follow culture data * continue supportive care (7) Acute exacerbation of congestive heart failure: Code(s): I50.9 - Heart failure, unspecified Status: Acute Assessment and Plan: * last echo 10/27 showed EF of 25-30% and diastolic dysfunction * most recent echo with EF ~ 30% as well * volume overload on presentation * diuretics initially on hold -- consider trial to help respiratory status * follow volume status closely (8) AMS (altered mental status): Qualifiers: Altered mental status type: somnolence Qualified Code(s): R40.0 - Somnolence Code(s): R41.82 - Altered mental status, unspecified Status: Acute Assessment and Plan: * secondary to seizure likely precipirated by hypoxia * however, based on discussion with family, she appears at baseline currently * Head CT shows on admission with old infarctions * follow trend (9) Anemia: Code(s): D64.9 - Anemia, unspecified Status: Acute Assessment and Plan: * stable if not improving * PRBC transfusion per protocol * empiric PPI * related to ARMIN, CKD, and acute illness(?) * follow trend of H/H * consider empiric ANA use if H/H drops firther (10) COVID-19: Code(s): U07.1
[2023-04-23 18:03] LABS: Glucose Point of Care 84 mg/dl (65-105)
[2023-04-23 18:03] LABS: Glucose Point of Care 68 mg/dl (65-105)
[2023-04-23] MEDS: cefTRIAXone 2 GM/NS 100 ML 2 GM/100 ML BAG IVPB (20:37)
[2023-04-23 23:47] LABS: Glucose Point of Care 75 mg/dl (65-105)
[2023-04-23 23:47] LABS: Glucose Point of Care 66 mg/dl (65-105)
[2023-04-24] VITALS (15 sets, daily range): BP systolic 131–147; BP diastolic 67–120; PULSE 64–88; RESP 16–21; TEMP 36.1–37.2; O2SAT 100
[2023-04-24 05:48] LABS: Alanine Aminotransferase 26 U/L (6-35); Albumin Level 3.7 g/dL (3.5-5.1); Alkaline Phosphatase 105 U/L (38-126); Anion Gap 12 mmol/L (8-16); Aspartate Amino Transferase 30 U/L (14-36); Bilirubin,Total 0.4 mg/dL (0.2-1.3); Blood Urea Nitrogen 108 mg/dL (7-17); Calcium 8.9 mg/dL (8.4-10.2); Carbon Dioxide 19 mmol/L (22-30); Chloride 118 mmol/L (98-107); Estimated CRCL calculation 19 ml/min; Estimated Glomerular Filt Rate 11; Glucose 89 mg/dL (65-110); Potassium 4.2 mmol/L (3.4-5.0); Sodium 149 mmol/L (137-145)
[2023-04-24 06:09] LABS: Hematocrit 28.5 % (37.0-47.0); Hemoglobin 8.6 g/dL (12.0-15.0); Mean Corpuscular HGB Conc 30.2 g/dl (32-36); Mean Corpuscular Hemoglobin 28.8 pg (26-34); Mean Corpuscular Volume 95.3 fl (80-100); Mean Platelet Volume 10.4 fl (7.4-10.4); Platelet Count Result 212 k/mm3 (150-375); Red Blood Count 2.99 M/mm3 (4.2-5.4); Red Cell Distribution Width 14.2 % (11.5-14.5); White Blood Count 10.3 K/mm3 (4.5-10.0)
[2023-04-24] MEDS: CENTRAL LINE FLUSH 10 ML IV PUSH ×3 (06:09→20:41)
[2023-04-24] MEDS: carvediloL 6.25 MG TABLET FEED TUBE ×2 (08:44→20:41)
[2023-04-24] MEDS: ASPIRIN 81 MG CHEWABLE TABLET FEED TUBE (08:44)
[2023-04-24] MEDS: SODIUM BICARBONATE TAB 650 MG TABLET 1300 MG PO ×2 (08:44→17:52)
[2023-04-24] MEDS: PANTOPRAZOLE SODIUM IV 40 MG VIAL IV PUSH ×2 (08:45→20:40)
[2023-04-24] MEDS: ATORVASTATIN 40 MG TABLET 80 MG FEED TUBE (08:45)
[2023-04-24] MEDS: cloNIDine HCL 0.1 MG TABLET PO ×3 (08:45→17:52)
[2023-04-24] MEDS: DEXTROSE 5% IN WATER 500 ML 100 ML IV CONT (09:02)
[2023-04-24] MEDS: TOLNAFTATE 1% POWDER 45 GM BTL 1 APPLIC TOPICAL (09:05)
--- NOTE | 2023-04-24 09:59 | PC.NURSE ---
This patient, Mirela Preston, was transferred to room 201 on 04/24/23 at 0950 via bed without issue. Personal belongings sent with patient. Report given to ANTELMO Javier. Appropriate documentation sent with patient.
--- NOTE | 2023-04-24 10:04 | PC.NURSE ---
[facility] updated on transfer. Informed that pt can now have visitors.
--- NOTE | 2023-04-24 10:18 | PCNFU ---
Nutrition Follow-Up Complete: Increased protein needs related to mechanical ventilation as evidenced by need for full tube feeding - Resolved Meet estimated protein energy needs - Extubated, able to meet needs PO Goal: Pt current nutrition is regular, Puree diet. Mildly thickened liquids Nutrition recommendation: Ensure Compact BID Last recorded weight is 148 kg. Bowel Motility: Last BM +1 04/22/23 Labs Reviewed: Hgb 8.6, Hct 28.5, Na 149, GFR 11, BUN 108, Cre 5.2 Meds Noted: Rocephin, dexamethasone, dilantin, protonix Skin: R AKA present Additional Notes: Pt was extubated and moved to IMU. Seen by speech, cleared for puree diet with mildly thickened liquids. RN reported good swallowing with no choking or coughing. Monitoring meds, tube feeding tolerance, labs, output, weights, plan of care Following every 5 days
--- NOTE | 2023-04-24 10:19 | WPDINTPN ---
Progress Note: A&P Assessment and Plan (1) Acute and chronic respiratory failure with hypoxia: Code(s): J96.21 - Acute and chronic respiratory failure with hypoxia Status: Acute Assessment and Plan: Acute on chronic multifactorial Respiratory failure secondary to congestive heart failure, COPD, possible community-acquired pneumonia COVID-19 pneumonia Patient now intubated and sedated and on mechanical ventilation Continue full mechanical ventilation support to prevent hypoxemia/hypercarbia and end organ damage. Chest x-ray reviewed. Chest CT was ordered but patient is too big to fit in our CT scanner ABG reviewed. FiO2 is 30% peep is at 8 Continue dexamethasone, bronchodilators, empiric antibiotics for community-acquired pneumonia 04/21 patient was extubated after weaning trial. She had stridor and was given racemic epi and Solu-Medrol. She later need BiPAP due to increased work of breathing and desaturation. She was taken off for few hours in the evening and then was later replaced on BiPAP at night 04/22 she was weaned off from BiPAP to nasal cannula this morning but later after few hours had to be placed back on due to tachypnea, wheeze work of breathing and desaturation. Continue BiPAP as needed and at night. Diuretics. She remains at risk of requiring re-intubation. Continue monitor closely. 04/23 on BiPAP overnight. I will transition her back to nasal cannula 2 L this morning. She is doing well at this time. Continue monitor closely. Use BiPAP on p.r.n. basis and at night to transition her. She is morbidly obese which makes it difficult. 04/24 wore BiPAP overnight and is on nasal cannula 2 L this morning and no respiratory distress maintaining a saturation. Will order continue incentive spirometry (2) Acute exacerbation of congestive heart failure: Code(s): I50.9 - Heart failure, unspecified Status: Acute Assessment and Plan: Most recent echo 10/27 showed EF of 25-30% and diastolic dysfunction echo Summary ? 1. Technically difficult exam because of obesity/definity contrast injectedto improve visualization. ? 2. Left ventricular dilation with severe global systolic dysfunction ejection fraction of 30%. ? 3. Diastolic noncompliance. ? 4. Left atrial enlarged. ? 5. No obvious valve dysfunction although quality of the exam is very challenging. (3) Sepsis: Qualifiers: Sepsis type: sepsis due to unspecified organism Sepsis acute organ dysfunction status: with acute organ dysfunction Severe sepsis acute organ dysfunction type: acute renal failure Acute renal failure type: unspecified Code(s): A41.9 - Sepsis, unspecified organism Status: Acute Assessment and Plan: patient currently Rocephin and doxycycline for community-acquired pneumonia Continues to have fever but her WBC is normal 04/19 repeat blood urine sputum cultures have been negative. Pastor was replaced and UA suggestive of UTI. Hemodynamically stable (4) AMS (altered mental status): Qualifiers: Altered mental status type: somnolence Qualified Code(s): R40.0 - Somnolence Code(s): R41.82 - Altered mental status, unspecified Status: Acute Assessment and Plan: Secondary to hypoxia seizure Head CT shows old infarctions Normal tSH and ammonia Now awake and partially oriented. After discussion with patient's family appears that patient had speaks few words at [facility] and is not oriented baseline. Her mental status now appears close to her baseline (5) Acute exacerbation of chronic obstructive airways disease: Code(s): J44.1 - Chronic obstructive pulmonary disease with (acute) exacerbation Status: Acute Assessment and Plan: See above (6) Pneumonia: Code(s): J18.9 - Pneumonia, unspecified organism Status: Acute Assessment and Plan: See above (7) COVID-19: Code(s): U07.1 - COVID-19 Status: Acute Assessment and P
[2023-04-24] MEDS: PHENYTOIN SODIUM INJ 100 MG/2 ML VIAL (*BKC) 200 MG IV PUSH ×2 (10:27→21:31)
--- NOTE | 2023-04-24 10:45 | P.PNNP_ITS ---
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 (3) Hyperkalemia: Code(s): E87.5 - Hyperkalemia Status: Acute Assessment and Plan: * improving * presumably due to ARMIN, entresto, spironolactone, and K+ supplements * on lokelma * on sodium bicarbonate as well (4) Hypernatremia: Code(s): E87.0 - Hyperosmolality and hypernatremia Status: Acute Assessment and Plan: * due to free water deficit * given issues with CHF, PRN runs of D5W IVFs * follow repeat sodium levels (5) Acute and chronic respiratory failure with hypoxia: Code(s): J96.21 - Acute and chronic respiratory failure with hypoxia Status: Acute Assessment and Plan: * resolving/improving * due to congestive heart failure, COPD, possible pneumonia, and COVID-19 pneumonia * extubated on 04/21 * PRN IV diuretics to maintain respiratory status * unable to do CT imaging due to body habitus (6) Pneumonia: Code(s): J18.9 - Pneumonia, unspecified organism Status: Acute Assessment and Plan: * suggestive by admission imaging * on antibiotics * follow culture data * continue supportive care (7) Acute exacerbation of congestive heart failure: Code(s): I50.9 - Heart failure, unspecified Status: Acute Assessment and Plan: * last echo 10/27 showed EF of 25-30% and diastolic dysfunction * most recent echo with EF ~ 30% as well * diuretics PRN * follow volume status closely (8) AMS (altered mental status): Qualifiers: Altered mental status type: somnolence Qualified Code(s): R40.0 - Somnolence Code(s): R41.82 - Altered mental status, unspecified Status: Acute Assessment and Plan: * secondary to seizure likely precipirated by hypoxia * however, based on discussion with family, she appears at baseline currently * Head CT shows on admission with old infarctions * follow trend (9) Anemia: Code(s): D64.9 - Anemia, unspecified Status: Acute Assessment and Plan: * stable if not improving * PRBC transfusion per protocol * empiric PPI * related to ARMIN, CKD, and acute illness(?) * follow trend of H/H * consider empiric ANA use if H/H drops firther (10) COVID-19: Code(s): U07.1 - COVID-19 Status: Acute Assessment and Plan: * noted COVID-19 positivity in ER * however, respiratory failure appears multifactorial with most likely component of CHF + COPD * on dexamethasone per protocol Will continue to follow
--- NOTE | 2023-04-24 10:45 | PM.PNNEP ---
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 (3) Hyperkalemia: Code(s): E87.5 - Hyperkalemia Status: Acute Assessment and Plan: improving presumably due to ARMIN, entresto, spironolactone, and K+ supplements on lokelnj on sodium bicarbonate as well (4) Hypernatremia: Code(s): E87.0 - Hyperosmolality and hypernatremia Status: Acute Assessment and Plan: due to free water deficit given issues with CHF, PRN runs of D5W IVFs follow repeat sodium levels (5) Acute and chronic respiratory failure with hypoxia: Code(s): J96.21 - Acute and chronic respiratory failure with hypoxia Status: Acute Assessment and Plan: resolving/improving due to congestive heart failure, COPD, possible pneumonia, and COVID-19 pneumonia extubated on 04/21 PRN IV diuretics to maintain respiratory status unable to do CT imaging due to body habitus (6) Pneumonia: Code(s): J18.9 - Pneumonia, unspecified organism Status: Acute Assessment and Plan: suggestive by admission imaging on antibiotics follow culture data continue supportive care (7) Acute exacerbation of congestive heart failure: Code(s): I50.9 - Heart failure, unspecified Status: Acute Assessment and Plan: last echo 10/27 showed EF of 25-30% and diastolic dysfunction most recent echo with EF ~ 30% as well diuretics PRN follow volume status closely (8) AMS (altered mental status): Qualifiers: Altered mental status type: somnolence Qualified Code(s): R40.0 - Somnolence Code(s): R41.82 - Altered mental status, unspecified Status: Acute Assessment and Plan: secondary to seizure likely precipirated by hypoxia however, based on discussion with family, she appears at baseline currently Head CT shows on admission with old infarctions follow trend (9) Anemia: Code(s): D64.9 - Anemia, unspecified Status: Acute Assessment and Plan: stable if not improving PRBC transfusion per protocol empiric PPI related to ARMIN, CKD, and acute illness(?) follow trend of H/H consider empiric ANA use if H/H drops firther (10) COVID-19: Code(s): U07.1 - COVID-19 Status: Acute Assessment and Plan: noted COVID-19 positivity in ER however, respiratory failure appears multifactorial with most likely component of CHF + COPD on dexamethasone per protocol Will continue to follow. Subjective Date/time seen: 04/24/23 10:45 Interval history: Follow-up for acute kidney injury/acute renal failure on chronic kidney disease. Transferred out of the ICU this morning; respiratory status remains stable on nasal cannula and use of BiPAP at night; renal function continues to improve with ongoing therapy and use of PRN diuretics; mentation seems at baseline; no apparent distress noted. Exam Narrative: General: Large female on NAD Heart: normal S1 and S2; no r
--- NOTE | 2023-04-24 12:14 | PC.NURSE ---
Called Dr. Corral, reported pt's potassium level, orders to hold lokelma
[2023-04-24 12:40] LABS: Glucose Point of Care 186 mg/dl (65-105)
--- NOTE | 2023-04-24 15:00 | PM.IMPN ---
Progress Note: A&P Assessment and Plan (1) Acute and chronic respiratory failure with hypoxia: Code(s): J96.21 - Acute and chronic respiratory failure with hypoxia Status: Acute Assessment and Plan: Acute on chronic multifactorial Respiratory failure secondary to congestive heart failure, COPD, possible community-acquired pneumonia COVID-19 pneumonia Patient was intubated and sedated and on mechanical ventilation Chest x-ray reviewed. Chest CT was ordered but patient is too big to fit in our CT scanner ABG reviewed. FiO2 is 30% peep is at 8 Continue dexamethasone, bronchodilators, empiric antibiotics for community-acquired pneumonia 04/21 patient extubated after weaning trial. She had stridor and was given racemic epi and Solu-Medrol. She later need BiPAP due to increased work of breathing and desaturation. She was taken off for few hours in the evening and then was later replaced on BiPAP at night 04/22 she was weaned off from BiPAP to nasal cannula this morning but later after few hours had to be placed back on due to tachypnea, wheeze work of breathing and desaturation. Continue BiPAP as needed and at night. Diuretics. She remains at risk of requiring re-intubation. Continue monitor closely. 04/23 on BiPAP overnight. Transitioned back to nasal cannula 2 L Continue monitor closely. Use BiPAP on p.r.n. basis and at night to transition her. She is morbidly obese which makes it difficult. 04/24 wore BiPAP overnight and is on nasal cannula 2 L this morning and no respiratory distress maintaining a saturation. On r continue incentive spirometry (2) Acute exacerbation of congestive heart failure: Code(s): I50.9 - Heart failure, unspecified Status: Acute Assessment and Plan: Most recent echo 10/27 showed EF of 25-30% and diastolic dysfunction echo Summary ? 1. Technically difficult exam because of obesity/definity contrast injectedto improve visualization. ? 2. Left ventricular dilation with severe global systolic dysfunction ejection fraction of 30%. ? 3. Diastolic noncompliance. ? 4. Left atrial enlarged. ? 5. No obvious valve dysfunction although quality of the exam is very challenging. (3) Sepsis: Qualifiers: Sepsis type: sepsis due to unspecified organism Sepsis acute organ dysfunction status: with acute organ dysfunction Severe sepsis acute organ dysfunction type: acute renal failure Acute renal failure type: unspecified Code(s): A41.9 - Sepsis, unspecified organism Status: Acute Assessment and Plan: patient currently Rocephin and doxycycline for community-acquired pneumonia repeat blood urine sputum cultures have been negative. Pastor was replaced and UA suggestive of UTI. Hemodynamically stable. 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 After discussion with patient's family appears that patient had speaks few words at [facility] and is not oriented baseline. Her mental status now appears close to her baseline (5) Acute exacerbation of chronic obstructive airways disease: Code(s): J44.1 - Chronic obstructive pulmonary disease with (acute) exacerbation Status: Acute Assessment and Plan: See above (6) Pneumonia: Code(s): J18.9 - Pneumonia, unspecified organism Status: Acute Assessment and Plan: See above (7) COVID-19: Code(s): U07.1 - COVID-19 Status: Acute Assessment and Plan: Tested positive for COVID-19 although respiratory failure appears multifactorial with most likely component of CHF COPD Continue dexamethasone Isolation (8) Acute on chronic re
[2023-04-24 17:08] LABS: Glucose Point of Care 94 mg/dl (65-105)
[2023-04-24 20:19] LABS: Glucose Point of Care 140 mg/dl (65-105)
[2023-04-24] MEDS: cefTRIAXone 2 GM/NS 100 ML 2 GM/100 ML BAG IVPB (20:42)
[2023-04-25] VITALS (21 sets, daily range): BP systolic 140–184; BP diastolic 76–94; PULSE 71–99; RESP 16–20; TEMP 35.7–36.4; O2SAT 96–100
[2023-04-25 03:47] LABS: Basophils Percent Auto 0.5 % (0.2-1.2); Eosinophils Absolute Auto 0.4 K/mm3 (0-0.3); Eosinophils Percent Auto 4.4 % (0-4.4); Hematocrit 27.4 % (37.0-47.0); Hemoglobin 8.1 g/dL (12.0-15.0); Immature Granulocyte Absolute 0.09 K/mm3 (0.00-0.031); Immature Granulocyte Percent A 1.1 % (0-0.5); Lymphocytes Absolute Auto 2.04 K/mm3 (0.9-3.2); Lymphocytes Percent Auto 25.5 % (18.3-44.2); Mean Corpuscular HGB Conc 29.6 g/dl (32-36); Mean Corpuscular Hemoglobin 28.3 pg (26-34); Mean Corpuscular Volume 95.8 fl (80-100); Mean Platelet Volume 10.8 fl (7.4-10.4); Monocytes Absolute Auto 0.6 K/mm3 (0.1-0.6); Monocytes Percent Auto 7.9 % (2.6-8.5); Neutrophils Absolute Auto 4.8 K/mm3 (1.3-6.7); Neutrophils Percent Auto 60.6 % (45.5-73.1); Platelet Count Result 208 k/mm3 (150-375); Red Blood Count 2.86 M/mm3 (4.2-5.4); Red Cell Distribution Width 14.1 % (11.5-14.5)
[2023-04-25 03:57] LABS: Potassium 4.2 mmol/L (3.4-5.0)
[2023-04-25 03:59] LABS: Alanine Aminotransferase 24 U/L (6-35); Albumin Level 3.5 g/dL (3.5-5.1); Alkaline Phosphatase 98 U/L (38-126); Anion Gap 11 mmol/L (8-16); Aspartate Amino Transferase 28 U/L (14-36); Bilirubin,Total 0.3 mg/dL (0.2-1.3); Blood Urea Nitrogen 104 mg/dL (7-17); Calcium 8.2 mg/dL (8.4-10.2); Carbon Dioxide 20 mmol/L (22-30); Chloride 117 mmol/L (98-107); Estimated CRCL calculation 23 ml/min; Estimated Glomerular Filt Rate 13; Glucose 87 mg/dL (65-110); Magnesium 2.4 mg/dL (1.6-2.3); Sodium 148 mmol/L (137-145)
[2023-04-25 04:11] LABS: Hypochromasia 2+ (NORMAL); Ovalocytes 1+ (NORMAL); Platelet Estimate Adequate (Adequate); Stomatocytes 1+ (NORMAL)
[2023-04-25 04:12] LABS: Schistocytes None Seen (NORMAL)
[2023-04-25 04:28] LABS: Alveolar/Arterial O2 Gradient 30.3 mmHg; Fractional Inspired Oxygen 30 %; HCO3 ABG 21.7 mEq/l (22.0-26.0); Oxygen Content ABG 13.3 %vol (16.0-22.0); Oxygen Saturation ABG 98.1 % (95.0-100.0); Oxyhemoglobin 96.7 % THb (90.0-100.0); PCO2 ABG 47.6 mmHg (35.0-45.0); PO2 ABG 127.7 mmHg (80.0-100.0); PO2 FiO2 Ratio Arterial Blood 4.26 %; Total Hemoglobin 9.6 g/dL (12.0-18.0)
[2023-04-25 04:29] LABS: pH ABG 7.277 (7.350-7.450)
[2023-04-25 04:30] LABS: Device NON-INVASIVE VENT; Modified Allen's Test Pass; Non-Invasive Expiratory Pressure 8 CMH2O; Non-Invasive Inspiratory Pressure 16 CMH2O; Non-Invasive Vent Rate 4 /MIN; Site Drawn RIGHT RADIAL
[2023-04-25] MEDS: CENTRAL LINE FLUSH 10 ML IV PUSH ×3 (05:53→20:34)
[2023-04-25] MEDS: ASPIRIN 81 MG CHEWABLE TABLET FEED TUBE (08:34)
[2023-04-25] MEDS: carvediloL 6.25 MG TABLET FEED TUBE ×2 (08:35→20:34)
[2023-04-25] MEDS: ATORVASTATIN 40 MG TABLET 80 MG FEED TUBE (08:35)
[2023-04-25] MEDS: cloNIDine HCL 0.1 MG TABLET PO ×3 (08:36→18:03)
[2023-04-25] MEDS: PANTOPRAZOLE SODIUM IV 40 MG VIAL IV PUSH ×2 (08:36→20:34)
[2023-04-25] MEDS: SODIUM BICARBONATE TAB 650 MG TABLET 1300 MG PO ×2 (08:37→18:04)
[2023-04-25] MEDS: PHENYTOIN SODIUM INJ 100 MG/2 ML VIAL (*BKC) 200 MG IV PUSH (08:37)
[2023-04-25] MEDS: TOLNAFTATE 1% POWDER 45 GM BTL 1 APPLIC TOPICAL ×2 (08:38→20:34)
[2023-04-25 09:07] LABS: Glucose Point of Care 99 mg/dl (65-105)
--- NOTE | 2023-04-25 09:08 | PM.PNNEP ---
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 (3) Hypernatremia: Code(s): E87.0 - Hyperosmolality and hypernatremia Status: Acute Assessment and Plan: due to free water deficit given issues with CHF, PRN runs of D5W IVFs to compensate follow repeat sodium levels (4) Acute and chronic respiratory failure with hypoxia: Code(s): J96.21 - Acute and chronic respiratory failure with hypoxia Status: Acute Assessment and Plan: resolving/improving due to congestive heart failure, COPD, possible pneumonia, and COVID-19 pneumonia extubated on 04/21 PRN IV diuretics to maintain respiratory status unable to do CT imaging due to body habitus (5) Pneumonia: Code(s): J18.9 - Pneumonia, unspecified organism Status: Acute Assessment and Plan: suggestive by admission imaging completed course of antibiotics culture data noted continue supportive care (6) Acute exacerbation of congestive heart failure: Code(s): I50.9 - Heart failure, unspecified Status: Acute Assessment and Plan: last echo 10/27 showed EF of 25-30% and diastolic dysfunction most recent echo with EF ~ 30% as well diuretics PRN follow volume status closely (7) AMS (altered mental status): Qualifiers: Altered mental status type: somnolence Qualified Code(s): R40.0 - Somnolence Code(s): R41.82 - Altered mental status, unspecified Status: Acute Assessment and Plan: secondary to seizure likely precipirated by hypoxia however, based on discussion with family, she appears at baseline currently Head CT shows on admission with old infarctions follow trend (8) Anemia: Code(s): D64.9 - Anemia, unspecified Status: Acute Assessment and Plan: stable if not improving PRBC transfusion per protocol empiric PPI related to ARMIN, CKD, and acute illness(?) follow trend of H/H consider empiric ANA use if H/H drops firther (9) COVID-19: Code(s): U07.1 - COVID-19 Status: Acute Assessment and Plan: noted COVID-19 positivity in ER however, respiratory failure appears multifactorial with most likely component of CHF + COPD on dexamethasone per protocol Will continue to follow. Subjective Date/time seen: 04/25/23 09:08 Interval history: Follow-up for acute kidney injury/acute renal failure on chronic kidney disease. Renal function continues to improve with supportive therapy with good urine output noted; respiratory status/breathing appears relatively stable as well (fluctuates between BiPAP and nasal cannula); no acute issues/events overnight or earlier this AM. Exam Narrative: General: Large female on NAD Heart: normal S1 and S2; no rub Lungs: coarse breath sounds Abdomen: soft, nontender, nondistended, positive bowel sounds Extremities: no cyanosis or clubbing; trace edema; s/p right AKA Skin: no nodules Objective Data Vital Signs
--- NOTE | 2023-04-25 09:08 | P.PNNP_ITS ---
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 (3) Hypernatremia: Code(s): E87.0 - Hyperosmolality and hypernatremia Status: Acute Assessment and Plan: * due to free water deficit * given issues with CHF, PRN runs of D5W IVFs to compensate * follow repeat sodium levels (4) Acute and chronic respiratory failure with hypoxia: Code(s): J96.21 - Acute and chronic respiratory failure with hypoxia Status: Acute Assessment and Plan: * resolving/improving * due to congestive heart failure, COPD, possible pneumonia, and COVID-19 pn eumonia * extubated on 04/21 * PRN IV diuretics to maintain respiratory status * unable to do CT imaging due to body habitus (5) Pneumonia: Code(s): J18.9 - Pneumonia, unspecified organism Status: Acute Assessment and Plan: * suggestive by admission imaging * completed course of antibiotics * culture data noted * continue supportive care (6) Acute exacerbation of congestive heart failure: Code(s): I50.9 - Heart failure, unspecified Status: Acute Assessment and Plan: * last echo 10/27 showed EF of 25-30% and diastolic dysfunction * most recent echo with EF ~ 30% as well * diuretics PRN * follow volume status closely (7) AMS (altered mental status): Qualifiers: Altered mental status type: somnolence Qualified Code(s): R40.0 - Somnolence Code(s): R41.82 - Altered mental status, unspecified Status: Acute Assessment and Plan: * secondary to seizure likely precipirated by hypoxia * however, based on discussion with family, she appears at baseline currently * Head CT shows on admission with old infarctions * follow trend (8) Anemia: Code(s): D64.9 - Anemia, unspecified Status: Acute Assessment and Plan: * stable if not improving * PRBC transfusion per protocol * empiric PPI * related to ARMIN, CKD, and acute illness(?) * follow trend of H/H * consider empiric ANA use if H/H drops firther (9) COVID-19: Code(s): U07.1 - COVID-19 Status: Acute Assessment and Plan: * noted COVID-19 positivity in ER * however, respiratory failure appears multifactorial with most likely component of CHF + COPD * on dexamethasone per protocol Will continue to follow. Subjective Date/time seen: 04/25/23 09:08 Interval history: Follow-up for acute kidney injury/acute renal failure on chronic kidney disease. Renal function continues to improve with supportive
[2023-04-25 10:20] LABS: Alveolar/Arterial O2 Gradient < 0.0 mmHg; Base Excess ABG -4.4 mEq/l (+/-2.0); Oxyhemoglobin 96.7 % THb (90.0-100.0); PCO2 ABG 46.4 mmHg (35.0-45.0); PO2 ABG 121.8 mmHg (80.0-100.0); PO2 FiO2 Ratio Arterial Blood 6.09 %; Total Hemoglobin 9.4 g/dL (12.0-18.0)
[2023-04-25 10:21] LABS: Device NASAL CANNULA; Fractional Inspired Oxygen 28 %; Modified Allen's Test Pass; Site Drawn RIGHT RADIAL; pH ABG 7.293 (7.350-7.450)
[2023-04-25 13:20] LABS: Glucose Point of Care 109 mg/dl (65-105)
[2023-04-25] MEDS: DEXTROSE 5% IN WATER 500 ML 100 ML IV CONT (14:05)
--- NOTE | 2023-04-25 16:11 | P.PNIM_ITS ---
Progress Note: A&P Assessment and Plan (1) Acute and chronic respiratory failure with hypoxia: Code(s): J96.21 - Acute and chronic respiratory failure with hypoxia Status: Acute Assessment and Plan: Acute on chronic multifactorial Respiratory failure secondary to congestive heart failure, COPD, possible community-acquired pneumonia COVID-19 pneumonia Patient was intubated and sedated and on mechanical ventilation Chest x-ray reviewed. Chest CT was ordered but patient is too big to fit in our CT scanner ABG reviewed. FiO2 is 30% peep is at 8 Continue dexamethasone, bronchodilators, empiric antibiotics for community- acquired pneumonia 04/21 patient extubated after weaning trial. She had stridor and was given racemic epi and Solu-Medrol. She later need BiPAP due to increased work of breathing and desaturation. She was taken off for few hours in the evening and then was later replaced on BiPAP at night 04/22 she was weaned off from BiPAP to nasal cannula this morning but later after few hours had to be placed back on due to tachypnea, wheeze work of breathing and desaturation. Continue BiPAP as needed and at night. Diuretics. She remains at risk of requiring re-intubation. Continue monitor closely. 04/23 on BiPAP overnight. Transitioned back to nasal cannula 2 L Continue monitor closely. Use BiPAP on p.r.n. basis and at night to transition her. She is morbidly obese which makes it difficult. 04/24 wore BiPAP overnight and is on nasal cannula 2 L this morning and no respiratory distress maintaining a saturation. On r continue incentive spirometry (2) Acute exacerbation of congestive heart failure: Code(s): I50.9 - Heart failure, unspecified Status: Acute Assessment and Plan: Most recent echo 10/27 showed EF of 25-30% and diastolic dysfunction echo Summary ? 1. Technically difficult exam because of obesity/definity contrast injectedto improve visualization. ? 2. Left ventricular dilation with severe global systolic dysfunction ejection fraction of 30%. ? 3. Diastolic noncompliance. ? 4. Left atrial enlarged. ? 5. No obvious valve dysfunction although quality of the exam is very challenging. (3) Sepsis: Qualifiers: Sepsis type: sepsis due to unspecified organism Sepsis acute organ dysfunction status: with acute organ dysfunction Severe sepsis acute organ dysfunction type: acute renal failure Acute renal failure type: unspecified Code(s): A41.9 - Sepsis, unspecified organism Status: Acute Assessment and Plan: patient currently Rocephin and doxycycline for community-acquired pneumonia repeat blood urine sputum cultures have been negative. Pastor was replaced and UA suggestive of UTI. Hemodynamically stable. 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 After discussion with patient's family appe ars that patient had speaks few words at long-term and is not oriented baseline. Her mental status now appears close to her baseline (5) Acute exacerbation of chronic obstructive airways disease: Code(s): J44.1 - Chronic obstructive pulmonary disease with (acute) exacerbation Status: Acute Assessment and Plan: See above (6) Pneumonia: Code(s): J18.9 - Pneumonia, unspecified organism Status: A
--- NOTE | 2023-04-25 16:27 | PC.NURSE ---
Spoke with patients Delilah BLUE, and updated her on patients status.
[2023-04-25] MEDS: PHENYTOIN SODIUM 100 MG EXTENDED RELEASE CAP 200 MG PO (18:03)
[2023-04-25 18:10] LABS: Glucose Point of Care 144 mg/dl (65-105)
[2023-04-25 21:36] LABS: Glucose Point of Care 107 mg/dl (65-105)
[2023-04-26] VITALS (27 sets, daily range): BP systolic 127–163; BP diastolic 66–89; PULSE 69–87; RESP 12–20; TEMP 36–36.5; O2SAT 98–100
[2023-04-26 00:21] LABS: Glucose Point of Care 88 mg/dl (65-105)
[2023-04-26] MEDS: DEXTROSE 5% 1,000 ML 1,000 ML 100 ML IVPB (00:24)
[2023-04-26] MEDS: DEXTROSE 10% 1,000 ML 100 ML IV CONT (04:39)
[2023-04-26] MEDS: CENTRAL LINE FLUSH 10 ML IV PUSH ×3 (04:39→21:14)
[2023-04-26 04:57] LABS: Basophils Percent Auto 0.5 % (0.2-1.2); Eosinophils Absolute Auto 0.4 K/mm3 (0-0.3); Eosinophils Percent Auto 5.2 % (0-4.4); Hematocrit 26.9 % (37.0-47.0); Immature Granulocyte Absolute 0.04 K/mm3 (0.00-0.031); Immature Granulocyte Percent A 0.5 % (0-0.5); Lymphocytes Absolute Auto 1.93 K/mm3 (0.9-3.2); Lymphocytes Percent Auto 26.2 % (18.3-44.2); Mean Corpuscular HGB Conc 29.7 g/dl (32-36); Mean Corpuscular Hemoglobin 28.9 pg (26-34); Mean Corpuscular Volume 97.1 fl (80-100); Mean Platelet Volume 10.9 fl (7.4-10.4); Monocytes Absolute Auto 0.5 K/mm3 (0.1-0.6); Monocytes Percent Auto 7.3 % (2.6-8.5); Neutrophils Absolute Auto 4.4 K/mm3 (1.3-6.7); Neutrophils Percent Auto 60.3 % (45.5-73.1); Platelet Count Result 195 k/mm3 (150-375); Red Blood Count 2.77 M/mm3 (4.2-5.4); Red Cell Distribution Width 13.8 % (11.5-14.5); White Blood Count 7.4 K/mm3 (4.5-10.0)
[2023-04-26 05:16] LABS: Alveolar/Arterial O2 Gradient 32.6 mmHg; Fractional Inspired Oxygen 30 %; HCO3 ABG 23.9 mEq/l (22.0-26.0); Oxygen Content ABG 12.5 %vol (16.0-22.0); Oxygen Saturation ABG 97.8 % (95.0-100.0); Oxyhemoglobin 96.6 % THb (90.0-100.0); PCO2 ABG 52.6 mmHg (35.0-45.0); PO2 ABG 119.5 mmHg (80.0-100.0); PO2 FiO2 Ratio Arterial Blood 3.98 %
[2023-04-26 05:17] LABS: Device NON-INVASIVE VENT; Modified Allen's Test Unable to perform; Site Drawn RIGHT RADIAL; pH ABG 7.275 (7.350-7.450)
[2023-04-26 05:18] LABS: Non-Invasive Inspiratory Pressure 16 CMH2O; Non-Invasive Vent Rate 4 /MIN
[2023-04-26 05:19] LABS: Non-Invasive Expiratory Pressure 8 CMH2O
[2023-04-26 05:26] LABS: Alanine Aminotransferase 23 U/L (6-35); Albumin Level 3.4 g/dL (3.5-5.1); Alkaline Phosphatase 92 U/L (38-126); Anion Gap 9 mmol/L (8-16); Aspartate Amino Transferase 29 U/L (14-36); Bilirubin,Total 0.3 mg/dL (0.2-1.3); Blood Urea Nitrogen 90 mg/dL (7-17); Carbon Dioxide 22 mmol/L (22-30); Chloride 113 mmol/L (98-107); Estimated CRCL calculation 23 ml/min; Estimated Glomerular Filt Rate 13; Glucose 91 mg/dL (65-110); Magnesium 2.4 mg/dL (1.6-2.3); Potassium 4.1 mmol/L (3.4-5.0); Sodium 144 mmol/L (137-145)
[2023-04-26 07:13] LABS: Glucose Point of Care 128 mg/dl (65-105)
--- NOTE | 2023-04-26 07:48 | PM.IMPN ---
Progress Note: A&P Assessment and Plan (1) Non-ST elevation (NSTEMI) myocardial infarction: Code(s): I21.4 - Non-ST elevation (NSTEMI) myocardial infarction Status: Acute (2) Anemia: Code(s): D64.9 - Anemia, unspecified Status: Acute (3) Sepsis: Qualifiers: Sepsis type: sepsis due to unspecified organism Sepsis acute organ dysfunction status: with acute organ dysfunction Severe sepsis acute organ dysfunction type: acute renal failure Acute renal failure type: unspecified Code(s): A41.9 - Sepsis, unspecified organism Status: Acute (4) Acute kidney injury superimposed on CKD: Code(s): N17.9 - Acute kidney failure, unspecified; N18.9 - Chronic kidney disease, unspecified Status: Acute (5) Seizure: Code(s): R56.9 - Unspecified convulsions Status: Acute Plan 52F w/ PMH asthma/COPD, HFpEF, seizures, GERD, HLD, HTN, CAROLYNN, vit D def presented with respiratory distress. Admitted for acute hypoxic hypercapnic respiratory failure on 04/15/23 This patient was admitted with acute hypoxic hypercapnic respiratory failure due to a number of possible causes. She has been treated for COVID and bacterial pneumonia and CHF. She continues to require BIPAP and remains hypercapnic. Consult pulmonology to assist with supervisor intermediates management. Have restarted scheduled duonebs today. ARMIN on CKD - nephrology to manage. Pt making acceptable urine. She may need dialysis in the near term, however her kidney function is stabilized now. Anemia is stable. Restert home dose iron. Reduce dose of protonix to qday Full code. Pt is guarded in IMU. SCD and protonix for prophylaxis. Subjective Date/time seen: 04/26/23 07:48 Interval history: patient is unwilling to participate with exam this morning. she opens her eyes then quickly closes them. she keeps her eyelids taut when I attempt to examine her pupils. Review of Systems Review of Systems: ROS unobtainable: Yes unobtainable due to mental status Exam Narrative: exam limited due to lack of participation Const: General: no acute distress Other: morbidly obese Resp: Auscultation: no crackles Cardio: Rate: regular rate Rhythm: regular rhythm Heart sounds: no gallops, no murmurs and no rubs Extrem: General: no edema Objective Data Vital Signs Vital Signs: Vital Signs - 24 hr 04/25/23 08:06 04/25/23 08:25 04/25/23 08:35 Temperature 97.6 F Pulse Rate 72 78 Respiratory Rate 18 Blood Pressure 184/86 H Pulse Oximetry 100 100 Oxygen Delivery Nasal Cannula Oxygen Flow Rate 2 Fraction of Inspired Oxygen 04/25/23 08:00 04/25/23 12:00 04/25/23 08:00 Temperature Pulse Rate 81 Respiratory Rate Blood Pressure Pulse Oximetry 100 100 Oxygen Delivery BiPAP Nasal Cannula Oxygen Flow Rate 1 Fraction of Inspired Oxygen 04/25/23 10:00 04/25/23 11:34 04/25/23 16:00 Temperature 96.9 F L 96.3 F L Pulse Rate 79 79 74 Respiratory Rate 20 20 Blood Pressure 153/94 H 150/80 H Pulse Oximetry 100 96 Oxygen Delivery Oxygen Flow Rate Fraction of Inspired Oxygen 04/25/23 16:00 04/25/23 12:00 04/25/23 14:00 Temperature Pulse Rate 78 80 Respiratory Rate Blood Pressure Pulse Oximetry 96 Oxygen Delivery Nasal Cannula Oxygen Flow Rate 1 Fraction of Inspired Oxygen 04/25/23 16:00 04/25/23 18:00 04/25/23 20:34 Temperature Pulse Rate 72 74 78 Respiratory Rate Blood Pressure Pulse Oximetry Oxygen Delivery Oxygen Flow Rate Fraction of Inspired Oxygen 04/25/23 20:00 04/25/23 20:00 04/25/23 20:00 Temperature 97.6 F Pulse Rate 82 77 Respiratory Rate 20 Blood Pressure 140/76 Pulse Oximetry 100 100 Oxygen Delivery Nasal Cannula Oxygen Flow Rate 1 Fraction of Inspired Oxygen 04/25/23 22:00 04/26/23 00:00 04/26/23 00:00 Temperature Pulse Rate 79 87 Respiratory Rate Blood Pressure
[2023-04-26] MEDS: ATORVASTATIN 40 MG TABLET 80 MG FEED TUBE (10:18)
[2023-04-26] MEDS: SODIUM BICARBONATE TAB 650 MG TABLET 1300 MG PO ×2 (10:18→17:39)
[2023-04-26] MEDS: cloNIDine HCL 0.1 MG TABLET PO ×3 (10:18→17:39)
[2023-04-26] MEDS: FERROUS SULFATE 325 MG TABLET DR PO ×2 (10:18→17:39)
[2023-04-26] MEDS: carvediloL 6.25 MG TABLET FEED TUBE ×2 (10:18→21:14)
[2023-04-26] MEDS: TOLNAFTATE 1% POWDER 45 GM BTL 1 APPLIC TOPICAL ×2 (10:19→21:14)
[2023-04-26] MEDS: PHENYTOIN SODIUM 100 MG EXTENDED RELEASE CAP 200 MG PO ×2 (10:19→17:39)
[2023-04-26] MEDS: ASPIRIN 81 MG CHEWABLE TABLET FEED TUBE (10:19)
[2023-04-26] MEDS: PANTOPRAZOLE 40 MG TABLET PO (10:19)
[2023-04-26] MEDS: ALBUTEROL SULFATE NEB 2.5 MG/3 ML INH INHALATION ×2 (10:56→20:11)
[2023-04-26] MEDS: IPRATROPIUM BR 0.02% INH SOLN 0.5 MG/2.5 ML VIAL INHALATION ×2 (10:57→20:11)
[2023-04-26 11:57] LABS: Glucose Point of Care 127 mg/dl (65-105)
--- NOTE | 2023-04-26 13:34 | PM.CNPUL ---
Assessment and Plan Assessment and plan (1) Acute and chronic respiratory failure with hypoxia: Code(s): J96.21 - Acute and chronic respiratory failure with hypoxia Status: Acute Assessment and Plan: She was intubated for multiple days due to acute on chronic hypercapnic hypoxemic respiratory failure tolerating extubation. She has COPD, only medications listed for this are nebulized albuterol and ipratropium. She lives in a facility, not clear is she uses additional medications for this condition. She is intellectually delayed, may have difficulty using inhalers. Using nebulized medications would be more effective. I would continue her short acting bronchodilators, wean O2, not adding additional imeds at thsi point. She needs to continue using PAP at night, with plans to discharge on this to her facility. (2) COVID-19: Code(s): U07.1 - COVID-19 Status: Acute Assessment and Plan: treated with dexamethasone, (3) Asthma-COPD overlap syndrome: Code(s): J44.9 - Chronic obstructive pulmonary disease, unspecified Status: Acute Assessment and Plan: History of Present Illness History of Present Illness Consult date: 04/26/23 Requesting physician: Haydee Sylvester MD Chief complaint: Respiratory Failure/COVID Narrative: NEW: Mirela Preston is a 52-year-old female with a history of stroke, COPD, CHF with preserved ejection fraction, seizure disorder, hypertension and iron deficiency anemia; admitted 11 days ago with acute hypoxemic respiratory failure and COVID. Decompensated congestive heart failure also contributed to her respiratory failure. She was intubated, Her initial chest x-ray 04/15/23 showed diffuse lung disease in the right lung and the mid and lower lungs on the left consistent with pneumonia or possibly pulmonary edema. Her her initial blood gas showed pH 7.24, pCO2 55, pO2 78 saturation 93% after intubation on CMV mode. The respiratory acidosis was quickly corrected by the ventilator, she was extubated. She is restarting her albuterol on ipratropium nebulized today. Her acute kidney injury is improving. She is restarting several of her home medications. She was too large for CT scan. She was treated with dexamethasone, bronchodilators and empiric antibiotics. She was extubated on 04/21 and then following day weaned off BiPAP to nasal cannula but had return to BiPAP due to increased work of breathing. She is using BiPAP at night now on 2 L of oxygen during the day. date 04/1504/26/23 pH 7.24 7.395 7.338 7.333 7.277 7.293 7.275 pCO2 55.1 39.3 35.6 34.8 47.6 46.4 52.6 pO2 78.2 126.5 74.3 76.5 127.7 121.8 119.5 HCO3 23.1 23.5 18.7 18.1 21.7 22 23.9 sat 93.2% 98.5% 94.2% 94.6% 98.1% 98% 97.8% O2 delivery vent vent vent vent vent bipap O2 rate IPAP EPAP 04/15/23 CXR: Endotracheal tube 6 mm above the deepti. Consider repositioning. Diffuse lung disease throughout the right lung and in the left mid and lower lung zones, consistent with pulmonary edema +/- r pneumonia. repeat CXR is improved 04/23/23 Bilateral airspace disease may represent edema or pneumonia. Cardiomegaly. Review of Systems Review of Systems: All systems reviewed & are unremarkable except as noted in HPI and below PMFSH Past Medical History Medical History Asthma-COPD overlap syndrome Cerebrovascular accident Chronic kidney disease Congestive heart failure Echocardiogram in October 2021 showed left ventricular hypertrophy with moderate left ventricular dilation and significant systolic dysfunction with an EF estimated 25 to 30%, grade 1 diastolic dysfunction, and mild right ventric
--- NOTE | 2023-04-26 13:47 | PM.PNNEP ---
Progress Note: A&P Assessment and Plan (1) ARMIN (acute kidney injury): Code(s): N17.9 - Acute kidney failure, unspecified Status: Acute Assessment and Plan: slow improvement noted suspect ATN due to infection (COVID + pneumonia) and CHF exacerbation evaluation noted: renal ultrasound with medical renal disease (incomplete visualization of saul kidney) CPK okay UA with blood and protein along with granular casts urine electrolytes never done responsive to diuretic therapy - use PRN follow repeat labs and UOP (2) Stage 3a chronic kidney disease: Code(s): N18.31 - Chronic kidney disease, stage 3a Status: Chronic Assessment and Plan: creatinine was running around 1.4 - 1.5mg/dl in November 2021 presumably secondary to hypertension and vascular disease as well as CHF there may be a component of CKD progression since last admission... (3) Acute and chronic respiratory failure with hypoxia: Code(s): J96.21 - Acute and chronic respiratory failure with hypoxia Status: Acute Assessment and Plan: resolving extubated BiPAP use PRN due to congestive heart failure, COPD, possible pneumonia, and COVID-19 pneumonia Pulmonary following continue current therapy (4) Pneumonia: Code(s): J18.9 - Pneumonia, unspecified organism Status: Acute Assessment and Plan: suggestive by admission imaging completed course of antibiotics culture data noted continue supportive care (5) Acute exacerbation of congestive heart failure: Code(s): I50.9 - Heart failure, unspecified Status: Acute Assessment and Plan: last echo 10/27 showed EF of 25-30% and diastolic dysfunction volume overload on presentation aggressive diuresis when in ICU resume diuretics as able/PRN (6) AMS (altered mental status): Qualifiers: Altered mental status type: somnolence Qualified Code(s): R40.0 - Somnolence Code(s): R41.82 - Altered mental status, unspecified Status: Acute Assessment and Plan: secondary to seizure likely precipirated by hypoxia however, based on discussion with family, she appears at baseline Head CT shows old infarctions follow mentation (7) COVID-19: Code(s): U07.1 - COVID-19 Status: Acute Assessment and Plan: noted COVID-19 positivity in ER however, respiratory failure appears multifactorial with most likely component of CHF COPD s/p dexamethasone and remdesivir Will continue to follow. Subjective Date/time seen: 04/26/23 13:47 Interval history: Follow-up on acute kidney injury/acute renal failure on chronic kidney disease. Respiratory status seems relatively stable at the time of my visit; has been using BiPAP therapy intermittently; renal function continues to slowly improve with good urine output noted without diuretic therapy; no issues overnight or earlier this morning. Exam Narrative: General: Large female in NAD Heart: normal S1 and S2; no rub Lungs: coarase breath sounds throughout Abdomen: soft, nontender, nondistended, positive bowel sounds Extremities: no cyanosis or clubbing; no edema; s/p right AKA Skin: warm and dry Objective Data Vital Signs Vital Signs: Vital Signs Temp Pulse Resp BP Pulse Ox O2 Del Method O2 Flow Rate 04/26/23 12:00 99 Room Air 04/26/23 11:27 97.0 F L 72 18 163/89 H 99 04/26/23 11:08 74 20 04/26/23 10:58 99 Room Air 04/26/23 10:49 79 20 04/26/23 10:18 81 04/26/23 07:56 96.8 F L 69 12 154/82 H 100 04/26/23 06:16 97.3 F L 76 20 143/75 H 100 04/26/23 05:55 71 04/26/23 05:38 70 15 98 BiPAP 04/26/23 04:00 99 BiPAP 04/26/23 04:00 71 04/26/23 02:45 74 16 99 BiPAP 04/26/23 02:00 75 04/25/23 23:35 78 16 98 BiPAP 04/26/23 00:00 97.1 F L 80 20 139/66 100 04/26/23
--- NOTE | 2023-04-26 13:47 | P.PNNP_ITS ---
Progress Note: A&P Assessment and Plan (1) ARMIN (acute kidney injury): Code(s): N17.9 - Acute kidney failure, unspecified Status: Acute Assessment and Plan: * slow improvement noted * suspect ATN due to infection (COVID + pneumonia) and CHF exacerbation * evaluation noted: * renal ultrasound with medical renal disease (incomplete visualization of saul kidney) * CPK okay * UA with blood and protein along with granular casts * urine electrolytes never done * responsive to diuretic therapy - use PRN * follow repeat labs and UOP (2) Stage 3a chronic kidney disease: Code(s): N18.31 - Chronic kidney disease, stage 3a Status: Chronic Assessment and Plan: * creatinine was running around 1.4 - 1.5mg/dl in November 2021 * presumably secondary to hypertension and vascular disease as well as CHF * there may be a component of CKD progression since last admission... (3) Acute and chronic respiratory failure with hypoxia: Code(s): J96.21 - Acute and chronic respiratory failure with hypoxia Status: Acute Assessment and Plan: * resolving * extubated * BiPAP use PRN * due to congestive heart failure, COPD, possible pneumonia, and COVID-19 pneumonia * Pulmonary following * continue current therapy (4) Pneumonia: Code(s): J18.9 - Pneumonia, unspecified organism Status: Acute Assessment and Plan: * suggestive by admission imaging * completed course of antibiotics * culture data noted * continue supportive care (5) Acute exacerbation of congestive heart failure: Code(s): I50.9 - Heart failure, unspecified Status: Acute Assessment and Plan: * last echo 10/27 showed EF of 25-30% and diastolic dysfunction * volume overload on presentation * aggressive diuresis when in ICU * resume diuretics as able/PRN (6) AMS (altered mental status): Qualifiers: Altered mental status type: somnolence Qualified Code(s): R40.0 - Somnolence Code(s): R41.82 - Altered mental status, unspecified Status: Acute Assessment and Plan: * secondary to seizure likely precipirated by hypoxia * however, based on discussion with family, she appears at baseline * Head CT shows old infarctions * follow mentation (7) COVID-19: Code(s): U07.1 - COVID-19 Status: Acute Assessment and Plan: * noted COVID-19 positivity in ER * however, respiratory failure appears multifactorial with most likely component of CHF COPD * s/p dexamethasone and remdesivir Will continue to follow. Subjective Date/time seen: 04/26/23 13:47 Interval history: Follow-up on acute kidney injury/acute renal failure on chronic kidney disease. Respiratory status seems relatively stable at the time of my visit; has been using BiPAP therapy intermittently; renal function continues to slowly improve with good urine output noted without diuretic therapy; no issues overnight or earlier this morning. Exam Narrative: General: Large female in NAD Heart: normal S1 and S2; no rub Lungs: coarase breath sounds throughout Abdomen: soft, nontender, nondistended, positive bowel sounds Extremities: no cyanosis or clubbing; no edema; s/p right AKA Skin: warm and dry Objective Data Vital Signs Vital Signs: Vital Signs Temp Pulse Resp BP Pulse Ox O2 Del Method
[2023-04-26 16:32] LABS: Glucose Point of Care 221 mg/dl (65-105)
[2023-04-26 21:09] LABS: Glucose Point of Care 115 mg/dl (65-105)
[2023-04-27] VITALS (18 sets, daily range): BP systolic 146–159; BP diastolic 80–106; PULSE 77–99; RESP 16–24; TEMP 36.1–37.3; O2SAT 96–100
--- NOTE | 2023-04-27 03:59 | PCRCNOTE ---
0200 tx on 04/27/2023 was not given due to pt being on apnea link study overnight
[2023-04-27] MEDS: CENTRAL LINE FLUSH 10 ML IV PUSH ×3 (05:17→22:00)
[2023-04-27 06:05] LABS: Basophils Percent Auto 0.5 % (0.2-1.2); Eosinophils Absolute Auto 0.3 K/mm3 (0-0.3); Eosinophils Percent Auto 4.2 % (0-4.4); Hematocrit 26.5 % (37.0-47.0); Hemoglobin 7.9 g/dL (12.0-15.0); Immature Granulocyte Absolute 0.04 K/mm3 (0.00-0.031); Immature Granulocyte Percent A 0.5 % (0-0.5); Lymphocytes Absolute Auto 1.49 K/mm3 (0.9-3.2); Lymphocytes Percent Auto 18.5 % (18.3-44.2); Mean Corpuscular HGB Conc 29.8 g/dl (32-36); Mean Corpuscular Hemoglobin 28.4 pg (26-34); Mean Corpuscular Volume 95.3 fl (80-100); Mean Platelet Volume 10.6 fl (7.4-10.4); Monocytes Absolute Auto 0.6 K/mm3 (0.1-0.6); Neutrophils Absolute Auto 5.6 K/mm3 (1.3-6.7); Neutrophils Percent Auto 69.3 % (45.5-73.1); Platelet Count Result 197 k/mm3 (150-375); Red Blood Count 2.78 M/mm3 (4.2-5.4); Red Cell Distribution Width 13.7 % (11.5-14.5)
[2023-04-27 06:18] LABS: Alanine Aminotransferase 24 U/L (6-35); Albumin Level 3.4 g/dL (3.5-5.1); Alkaline Phosphatase 100 U/L (38-126); Anion Gap 8 mmol/L (8-16); Aspartate Amino Transferase 26 U/L (14-36); Bilirubin,Total 0.3 mg/dL (0.2-1.3); Blood Urea Nitrogen 78 mg/dL (7-17); Calcium 7.6 mg/dL (8.4-10.2); Carbon Dioxide 23 mmol/L (22-30); Chloride 112 mmol/L (98-107); Estimated CRCL calculation 26 ml/min; Estimated Glomerular Filt Rate 16; Glucose 98 mg/dL (65-110); Magnesium 2.2 mg/dL (1.6-2.3); Potassium 4.2 mmol/L (3.4-5.0); Sodium 143 mmol/L (137-145)
[2023-04-27] MEDS: IPRATROPIUM BR 0.02% INH SOLN 0.5 MG/2.5 ML VIAL INHALATION ×3 (07:51→20:37)
[2023-04-27] MEDS: ALBUTEROL SULFATE NEB 2.5 MG/3 ML INH INHALATION ×3 (07:51→20:37)
[2023-04-27] MEDS: carvediloL 6.25 MG TABLET FEED TUBE ×2 (08:23→20:37)
[2023-04-27] MEDS: PHENYTOIN SODIUM 100 MG EXTENDED RELEASE CAP 200 MG PO ×2 (08:23→17:12)
[2023-04-27] MEDS: ATORVASTATIN 40 MG TABLET 80 MG FEED TUBE (08:23)
[2023-04-27] MEDS: cloNIDine HCL 0.1 MG TABLET PO ×3 (08:24→17:13)
[2023-04-27] MEDS: TOLNAFTATE 1% POWDER 45 GM BTL 1 APPLIC TOPICAL ×2 (08:24→22:00)
[2023-04-27] MEDS: ASPIRIN 81 MG CHEWABLE TABLET FEED TUBE (08:24)
[2023-04-27] MEDS: FERROUS SULFATE 325 MG TABLET DR PO ×2 (08:24→17:13)
[2023-04-27] MEDS: PANTOPRAZOLE 40 MG TABLET PO (08:24)
[2023-04-27 08:26] LABS: Glucose Point of Care 119 mg/dl (65-105)
[2023-04-27] MEDS: SODIUM BICARBONATE TAB 650 MG TABLET 1300 MG PO (08:29)
--- NOTE | 2023-04-27 09:14 | PCNFU ---
Nutrition Follow-Up Complete: Increased protein needs related to mechanical ventilation as evidenced by need for full tube feeding Goal:Meet estimated protein energy needs Pt progressing towards goal. Continue with same goal Pt current nutrition is Pureed, mildly thick liquids, Ensure compact BID in place, also receiving nutrition ice cream cups. N utrition recommendation: Continue with current plan of care. Last recorded weight is 146 kg. Bowel Motility: +BM 04/24 Labs Reviewed: Hgb:7.9, HCT:26.5, Alb:3.4, GFR:16, BUN:78, Cr:3.7 Meds Noted: Protonix Skin: R AKA, no skin issues noted Additional Notes: Pt continues on a pureed diet, mildly thick liquids, intake is good overall at 50-100% of meals. Supplements in place. Continue to encourage po intake of meals and supplements. Monitoring intake, labs, output, weights, plan of care Follow up in 5 days.
--- NOTE | 2023-04-27 11:32 | PM.IMPN ---
Progress Note: A&P Assessment and Plan (1) Anemia: Code(s): D64.9 - Anemia, unspecified Status: Acute (2) Sepsis: Qualifiers: Sepsis type: sepsis due to unspecified organism Sepsis acute organ dysfunction status: with acute organ dysfunction Severe sepsis acute organ dysfunction type: acute renal failure Acute renal failure type: unspecified Code(s): A41.9 - Sepsis, unspecified organism Status: Acute (3) Acute kidney injury superimposed on CKD: Code(s): N17.9 - Acute kidney failure, unspecified; N18.9 - Chronic kidney disease, unspecified Status: Acute (4) COVID-19: Code(s): U07.1 - COVID-19 Status: Acute (5) Pneumonia: Code(s): J18.9 - Pneumonia, unspecified organism Status: Acute Plan fortunately the patient is now off of BIPAP. continue nebs for now and appreciate pulmonology recs. we appreciate their assistance. she is now back to her baseline mental status and usual condition. d/c TLC, order PT/OT and begin d/c planning back to care home. creatinine slightly improved. cont to appreciate nephrology recs. full code lovenox for DVT prophylaxis Subjective Date/time seen: 04/27/23 11:32 Interval history: naoe. pt follows commands, appears to nod along with conversation, and shakes her head when i ask if there is any symptoms. she appears content. Review of Systems Review of Systems: All systems reviewed & are unremarkable except as noted in HPI and below Exam Const: General: comfortable and no acute distress Other: non verbal Eyes: Pupils: Equal, round and reactive pupils present Neck: Neck: supple Resp: Effort & Inspection: normal respiratory effort Auscultation: clear to auscultation bilaterally, no crackles, no rales and no rhonchi Cardio: Rate: regular rate Rhythm: regular rhythm Heart sounds: no gallops, no murmurs and no rubs GI: GI Palp: Yes Soft to palpation and No Tenderness to palpation present (GI) Extrem: General: no edema Objective Data Vital Signs Vital Signs: Vital Signs - 24 hr 04/26/23 12:00 04/26/23 16:19 04/26/23 16:00 Temperature 97.7 F Pulse Rate 78 Respiratory Rate 18 Blood Pressure 147/84 H Pulse Oximetry 99 100 Oxygen Delivery Room Air Room Air 04/26/23 12:00 04/26/23 14:00 04/26/23 16:00 Temperature Pulse Rate 77 80 80 Respiratory Rate Blood Pressure Pulse Oximetry Oxygen Delivery 04/26/23 18:00 04/26/23 19:52 04/26/23 20:11 Temperature 97 F L Pulse Rate 80 79 87 Respiratory Rate 20 20 Blood Pressure 137/73 Pulse Oximetry 100 Oxygen Delivery 04/26/23 20:14 04/26/23 20:20 04/26/23 21:14 Temperature Pulse Rate 75 85 Respiratory Rate 20 Blood Pressure Pulse Oximetry 98 Oxygen Delivery Room Air 04/26/23 20:00 04/26/23 20:00 04/26/23 23:53 Temperature 97.4 F L Pulse Rate 86 78 Respiratory Rate 20 Blood Pressure 127/85 Pulse Oximetry 99 98 Oxygen Delivery Room Air 04/27/23 00:00 04/27/23 00:00 04/27/23 03:35 Temperature Pulse Rate 87 Respiratory Rate Blood Pressure Pulse Oximetry 98 98 Oxygen Delivery Room Air Room Air 04/27/23 04:00 04/27/23 04:00 04/27/23 07:53 Temperature 96.9 F L Pulse Rate 92 77 Respiratory Rate 18 Blood Pressure 150/83 H Pulse Oximetry 100 Oxygen Delivery Room Air 04/27/23 07:53 04/27/23 07:53 04/27/23 08:03 Temperature Pulse Rate 87 87 80 Respiratory Rate 22 H 22 H Blood Pressure Pulse Oximetry 97 Oxygen Delivery Room Air 04/27/23 08:23 04/27/23 08:00 04/27/23 08:00 Temperature 97.7 F Pulse Rate 93 89 Respiratory Rate 16 Blood Pressure 146/80 H Pulse Oximetry 97 100 Oxygen Delivery Room Air 04/27/23 08:00 04/27/23 10:00 Temperature Pulse Rate 77 95 Respiratory Rate Blood Pressure Pulse Oximetry Oxygen Delivery Intake/Output Intake/Output: Intake & Output
[2023-04-27 11:39] LABS: Glucose Point of Care 119 mg/dl (65-105)
--- NOTE | 2023-04-27 14:11 | PC.NURSE ---
Updated Delilah HORTON, on patient condition
--- NOTE | 2023-04-27 15:24 | P.PNNP_ITS ---
Progress Note: A&P Assessment and Plan (1) ARMIN (acute kidney injury): Code(s): N17.9 - Acute kidney failure, unspecified Status: Acute Assessment and Plan: * the patient has ARMIN. * suspect ATN due to infection (COVID + pneumonia) and CHF exacerbation * evaluation noted: * renal ultrasound with medical renal disease (incomplete visualization of saul kidney) * CPK okay * UA with blood and protein along with granular casts * urine electrolytes never done * Urine output is doing pretty well. * She is not on a routine diuretic. * Creatinine improved to 3.7. * Will check another creatinine tomorrow (2) Stage 3a chronic kidney disease: Code(s): N18.31 - Chronic kidney disease, stage 3a Status: Chronic Assessment and Plan: * creatinine was running around 1.4 - 1.5mg/dl in November 2021 * presumably secondary to hypertension and vascular disease as well as CHF * there may be a component of CKD progression since last admission... (3) Acute and chronic respiratory failure with hypoxia: Code(s): J96.21 - Acute and chronic respiratory failure with hypoxia Status: Acute Assessment and Plan: * resolving * extubated * BiPAP use PRN * due to congestive heart failure, COPD, possible pneumonia, and COVID-19 pneumonia * on room air * breathing comfortably. (4) Pneumonia: Code(s): J18.9 - Pneumonia, unspecified organism Status: Acute Assessment and Plan: * suggestive by admission imaging * completed course of antibiotics (5) Acute exacerbation of congestive heart failure: Code(s): I50.9 - Heart failure, unspecified Status: Acute Assessment and Plan: * last echo 10/27 showed EF of 25-30% and diastolic dysfunction * volume overload on presentation * Latest chest x-ray on the did show some fluid still. * Intake/ output is negative. * Check a chest x-ray today * Will reassess tomorrow. (6) AMS (altered mental status): Qualifiers: Altered mental status type: somnolence Qualified Code(s): R40.0 - Somnolence Code(s): R41.82 - Altered mental status, unspecified Status: Acute Assessment and Plan: * secondary to seizure likely precipirated by hypoxia * however, based on discussion with family, she appears at baseline * Head CT shows old infarctions * follow mentation (7) COVID-19: Code(s): U07.1 - COVID-19 Status: Acute Assessment and Plan: * noted COVID-19 positivity in ER * however, respiratory failure appears multifactorial with most likely component of CHF COPD * s/p dexamethasone and remdesivir * off isolation Subjective Date/time seen: 04/27/23 15:24 Interval history: Mirela is feeling better. Nods her head yes or no. She has no shortness of breath. No pain. Breathing okay. Exam Narrative: General: Large female in NAD Heart: normal S1 and S2; no rub Or gallop Lungs: coarase breath sounds throughout Abdomen: soft, nontender, nondistended, positive bowel sounds Extremities: no cyanosis or clubbing; no edema; s/p right AKA Skin: no rash Objective Data Vital Signs Vital Signs: Vital Signs - 24 hr 04/26/23 16:19 04/26/23 16:00 04/26/23 16:00 Temperature 97.7 F Pulse Rate 78 80 Respiratory Rate 18 Blood Pressure 147/84 H
--- NOTE | 2023-04-27 15:24 | PM.PNNEP ---
Progress Note: A&P Assessment and Plan (1) ARMIN (acute kidney injury): Code(s): N17.9 - Acute kidney failure, unspecified Status: Acute Assessment and Plan: the patient has ARMIN. suspect ATN due to infection (COVID + pneumonia) and CHF exacerbation evaluation noted: renal ultrasound with medical renal disease (incomplete visualization of saul kidney) CPK okay UA with blood and protein along with granular casts urine electrolytes never done Urine output is doing pretty well. She is not on a routine diuretic. Creatinine improved to 3.7. Will check another creatinine tomorrow (2) Stage 3a chronic kidney disease: Code(s): N18.31 - Chronic kidney disease, stage 3a Status: Chronic Assessment and Plan: creatinine was running around 1.4 - 1.5mg/dl in November 2021 presumably secondary to hypertension and vascular disease as well as CHF there may be a component of CKD progression since last admission... (3) Acute and chronic respiratory failure with hypoxia: Code(s): J96.21 - Acute and chronic respiratory failure with hypoxia Status: Acute Assessment and Plan: resolving extubated BiPAP use PRN due to congestive heart failure, COPD, possible pneumonia, and COVID-19 pneumonia on room air breathing comfortably. (4) Pneumonia: Code(s): J18.9 - Pneumonia, unspecified organism Status: Acute Assessment and Plan: suggestive by admission imaging completed course of antibiotics (5) Acute exacerbation of congestive heart failure: Code(s): I50.9 - Heart failure, unspecified Status: Acute Assessment and Plan: last echo 10/27 showed EF of 25-30% and diastolic dysfunction volume overload on presentation Latest chest x-ray on the did show some fluid still. Intake/ output is negative. Check a chest x-ray today Will reassess tomorrow. (6) AMS (altered mental status): Qualifiers: Altered mental status type: somnolence Qualified Code(s): R40.0 - Somnolence Code(s): R41.82 - Altered mental status, unspecified Status: Acute Assessment and Plan: secondary to seizure likely precipirated by hypoxia however, based on discussion with family, she appears at baseline Head CT shows old infarctions follow mentation (7) COVID-19: Code(s): U07.1 - COVID-19 Status: Acute Assessment and Plan: noted COVID-19 positivity in ER however, respiratory failure appears multifactorial with most likely component of CHF COPD s/p dexamethasone and remdesivir off isolation Subjective Date/time seen: 04/27/23 15:24 Interval history: Mirela is feeling better. Nods her head yes or no. She has no shortness of breath. No pain. Breathing okay. Exam Narrative: General: Large female in NAD Heart: normal S1 and S2; no rub Or gallop Lungs: coarase breath sounds throughout Abdomen: soft, nontender, nondistended, positive bowel sounds Extremities: no cyanosis or clubbing; no edema; s/p right AKA Skin: no rash Objective Data Vital Signs Vital Signs: Vital Signs - 24 hr 04/26/23 16:19 04/26/23 16:00 04/26/23 16:00 Temperature 97.7 F Pulse Rate 78 80 Respiratory Rate 18 Blood Pressure 147/84 H Pulse Oximetry 100 Oxygen Delivery Room Air 04/26/23 18:00 04/26/23 19:52 04/26/23 20:11 Temperature 97 F L Pulse Rate 80 79 87 Respiratory Rate 20 20 Blood Pressure 137/73 Pulse Oximetry 100 Oxygen Delivery 04/26/23 20:14 04/26/23 20:20 04/26/23 21:14 Temperature Pulse Rate 75 85 Respiratory Rate 20 Blood Pressure Pulse Oximetry 98 Oxygen Delivery Room Air 04/26/23 20:00 04/26/23 20:00 04/26/23 23:53 Temperature 97.4 F L Pulse Rate 86 78 Respiratory Rate 20 Blood Pressure 127/85 Pulse Oximetry 99 98 Oxygen Delivery Room Air 04/27/23 00:00 12
[2023-04-27 16:45] LABS: Glucose Point of Care 159 mg/dl (65-105)
[2023-04-27] MEDS: CENTRAL LINE FLUSH 20 ML IV PUSH (21:00)
[2023-04-27 21:33] LABS: Glucose Point of Care 106 mg/dl (65-105)
[2023-04-28] VITALS (25 sets, daily range): BP systolic 136–156; BP diastolic 72–103; PULSE 84–114; RESP 16–24; TEMP 35.6–36.4; O2SAT 92–100
[2023-04-28] MEDS: IPRATROPIUM BR 0.02% INH SOLN 0.5 MG/2.5 ML VIAL INHALATION ×4 (02:30→21:30)
[2023-04-28] MEDS: ALBUTEROL SULFATE NEB 2.5 MG/3 ML INH INHALATION ×4 (02:31→21:30)
[2023-04-28] MEDS: CENTRAL LINE FLUSH 10 ML IV PUSH (05:20)
[2023-04-28 05:31] LABS: Basophils Percent Auto 0.4 % (0.2-1.2); Eosinophils Absolute Auto 0.4 K/mm3 (0-0.3); Eosinophils Percent Auto 3.7 % (0-4.4); Hematocrit 29.4 % (37.0-47.0); Hemoglobin 8.8 g/dL (12.0-15.0); Immature Granulocyte Absolute 0.05 K/mm3 (0.00-0.031); Immature Granulocyte Percent A 0.5 % (0-0.5); Lymphocytes Absolute Auto 1.71 K/mm3 (0.9-3.2); Mean Corpuscular HGB Conc 29.9 g/dl (32-36); Mean Corpuscular Hemoglobin 28.1 pg (26-34); Mean Corpuscular Volume 93.9 fl (80-100); Mean Platelet Volume 10.7 fl (7.4-10.4); Monocytes Absolute Auto 0.6 K/mm3 (0.1-0.6); Monocytes Percent Auto 6.5 % (2.6-8.5); Neutrophils Absolute Auto 6.7 K/mm3 (1.3-6.7); Neutrophils Percent Auto 70.9 % (45.5-73.1); Platelet Count Result 200 k/mm3 (150-375); Red Blood Count 3.13 M/mm3 (4.2-5.4); White Blood Count 9.5 K/mm3 (4.5-10.0)
[2023-04-28 05:49] LABS: Albumin Level 3.6 g/dL (3.5-5.1); Anion Gap 9 mmol/L (8-16); Blood Urea Nitrogen 66 mg/dL (7-17); Calcium 8.4 mg/dL (8.4-10.2); Carbon Dioxide 22 mmol/L (22-30); Chloride 112 mmol/L (98-107); Estimated CRCL calculation 28 ml/min; Estimated Glomerular Filt Rate 17; Glucose 96 mg/dL (65-110); Magnesium 2.1 mg/dL (1.6-2.3); Phosphorus 4.1 mg/dL (2.5-4.5); Potassium 4.2 mmol/L (3.4-5.0); Sodium 143 mmol/L (137-145)
[2023-04-28 07:44] LABS: Glucose Point of Care 113 mg/dl (65-105)
[2023-04-28] MEDS: ENOXAPARIN 30 MG/0.3 ML SYRINGE SUB-Q (09:04)
[2023-04-28] MEDS: FERROUS SULFATE 325 MG TABLET DR PO ×2 (09:04→16:44)
[2023-04-28] MEDS: PHENYTOIN SODIUM 100 MG EXTENDED RELEASE CAP 200 MG PO ×2 (09:04→16:44)
[2023-04-28] MEDS: cloNIDine HCL 0.1 MG TABLET PO ×3 (09:04→16:44)
[2023-04-28] MEDS: PANTOPRAZOLE 40 MG TABLET PO (09:04)
[2023-04-28] MEDS: carvediloL 6.25 MG TABLET FEED TUBE ×2 (09:05→21:12)
[2023-04-28] MEDS: ASPIRIN 81 MG CHEWABLE TABLET FEED TUBE (09:05)
[2023-04-28] MEDS: ATORVASTATIN 40 MG TABLET 80 MG FEED TUBE (09:05)
[2023-04-28] MEDS: TOLNAFTATE 1% POWDER 45 GM BTL 1 APPLIC TOPICAL ×2 (09:06→21:12)
[2023-04-28] MEDS: ONDANSETRON INJ 4 MG/2 ML VIAL IV PUSH (09:30)
--- NOTE | 2023-04-28 13:01 | P.PNNP_ITS ---
Progress Note: A&P Assessment and Plan (1) ARMIN (acute kidney injury): Code(s): N17.9 - Acute kidney failure, unspecified Status: Acute Assessment and Plan: * the patient has ARMIN. * suspect ATN due to infection (COVID + pneumonia) and CHF exacerbation * evaluation noted: * renal ultrasound with medical renal disease (incomplete visualization of saul kidney) * CPK okay * UA with blood and protein along with granular casts * urine electrolytes never done * Urine output 2775 in the last 24hours. * She is not on a routine diuretic. * Volume status looks okay * electrolytes okay * Creatinine improved to 3.4 * Will check another creatinine tomorrow (2) Stage 3a chronic kidney disease: Code(s): N18.31 - Chronic kidney disease, stage 3a Status: Chronic Assessment and Plan: * creatinine was running around 1.4 - 1.5mg/dl in November 2021 * presumably secondary to hypertension and vascular disease as well as CHF * there may be a component of CKD progression since last admission... (3) Acute and chronic respiratory failure with hypoxia: Code(s): J96.21 - Acute and chronic respiratory failure with hypoxia Status: Acute Assessment and Plan: * on room air * breathing comfortably. (4) Pneumonia: Code(s): J18.9 - Pneumonia, unspecified organism Status: Acute Assessment and Plan: * suggestive by admission imaging * completed course of antibiotics (5) Acute exacerbation of congestive heart failure: Code(s): I50.9 - Heart failure, unspecified Status: Acute Assessment and Plan: * last echo 10/27 showed EF of 25-30% and diastolic dysfunction * volume overload on presentation * Latest chest x-ray on the did show some fluid still. * Intake/ output is negative. * chest x-ray is better * for will follow along (6) AMS (altered mental status): Qualifiers: Altered mental status type: somnolence Qualified Code(s): R40.0 - Somnolence Code(s): R41.82 - Altered mental status, unspecified Status: Acute Assessment and Plan: * secondary to seizure likely precipirated by hypoxia * however, based on discussion with family, she appears at baseline * Head CT shows old infarctions * follow mentation (7) COVID-19: Code(s): U07.1 - COVID-19 Status: Acute Assessment and Plan: * off isolation Subjective Date/time seen: 04/28/23 13:01 Interval history: alert. Feels okay. Exam Narrative: General: Large female in NAD Heart: normal S1 and S2; no rub or gallop Lungs: breath sounds fairly clear anteriorly Abdomen: soft, nontender, nondistended, positive bowel sounds Extremities: no cyanosis or clubbing; no edema; s/p right AKA Skin: no rash Or subcu nodule Objective Data Vital Signs Vital Signs: Vital Signs - 24 hr 04/27/23 13:58 04/27/23 14:07 04/27/23 14:00 Temperature Pulse Rate 93 86 93 Respiratory Rate 20 20 Blood Pressure Pulse Oximetry Oxygen Delivery 04/27/23 16:00 04/27/23 16:00 04/27/23 18:00 Temperature 97.1 F L Pulse Rate 88 91 92 Respiratory Rate 20 Blood Pressure 154/94 H Pulse Oximetry 99 Oxygen Delivery
--- NOTE | 2023-04-28 13:01 | PM.PNNEP ---
Progress Note: A&P Assessment and Plan (1) ARMIN (acute kidney injury): Code(s): N17.9 - Acute kidney failure, unspecified Status: Acute Assessment and Plan: the patient has ARMIN. suspect ATN due to infection (COVID + pneumonia) and CHF exacerbation evaluation noted: renal ultrasound with medical renal disease (incomplete visualization of saul kidney) CPK okay UA with blood and protein along with granular casts urine electrolytes never done Urine output 2775 in the last 24hours. She is not on a routine diuretic. Volume status looks okay electrolytes okay Creatinine improved to 3.4 Will check another creatinine tomorrow (2) Stage 3a chronic kidney disease: Code(s): N18.31 - Chronic kidney disease, stage 3a Status: Chronic Assessment and Plan: creatinine was running around 1.4 - 1.5mg/dl in November 2021 presumably secondary to hypertension and vascular disease as well as CHF there may be a component of CKD progression since last admission... (3) Acute and chronic respiratory failure with hypoxia: Code(s): J96.21 - Acute and chronic respiratory failure with hypoxia Status: Acute Assessment and Plan: on room air breathing comfortably. (4) Pneumonia: Code(s): J18.9 - Pneumonia, unspecified organism Status: Acute Assessment and Plan: suggestive by admission imaging completed course of antibiotics (5) Acute exacerbation of congestive heart failure: Code(s): I50.9 - Heart failure, unspecified Status: Acute Assessment and Plan: last echo 10/27 showed EF of 25-30% and diastolic dysfunction volume overload on presentation Latest chest x-ray on the did show some fluid still. Intake/ output is negative. chest x-ray is better for will follow along (6) AMS (altered mental status): Qualifiers: Altered mental status type: somnolence Qualified Code(s): R40.0 - Somnolence Code(s): R41.82 - Altered mental status, unspecified Status: Acute Assessment and Plan: secondary to seizure likely precipirated by hypoxia however, based on discussion with family, she appears at baseline Head CT shows old infarctions follow mentation (7) COVID-19: Code(s): U07.1 - COVID-19 Status: Acute Assessment and Plan: off isolation Subjective Date/time seen: 04/28/23 13:01 Interval history: alert. Feels okay. Exam Narrative: General: Large female in NAD Heart: normal S1 and S2; no rub or gallop Lungs: breath sounds fairly clear anteriorly Abdomen: soft, nontender, nondistended, positive bowel sounds Extremities: no cyanosis or clubbing; no edema; s/p right AKA Skin: no rash Or subcu nodule Objective Data Vital Signs Vital Signs: Vital Signs - 24 hr 04/27/23 13:58 04/27/23 14:07 04/27/23 14:00 Temperature Pulse Rate 93 86 93 Respiratory Rate 20 20 Blood Pressure Pulse Oximetry Oxygen Delivery 04/27/23 16:00 04/27/23 16:00 04/27/23 18:00 Temperature 97.1 F L Pulse Rate 88 91 92 Respiratory Rate 20 Blood Pressure 154/94 H Pulse Oximetry 99 Oxygen Delivery 04/27/23 20:00 04/27/23 20:37 04/27/23 20:37 Temperature 99.2 F Pulse Rate 88 80 82 Respiratory Rate 24 H 20 Blood Pressure 159/87 H Pulse Oximetry 96 Oxygen Delivery 04/27/23 20:44 04/27/23 20:00 04/27/23 22:00 Temperature Pulse Rate 96 90 Respiratory Rate Blood Pressure Pulse Oximetry 97 Oxygen Delivery Room Air 04/28/23 00:00 04/28/23 00:00 04/28/23 02:00 Temperature 97.6 F Pulse Rate 108 H 85 103 H Respiratory Rate 22 H Blood Pressure 136/72 Pulse Oximetry 97 Oxygen Delivery 04/28/23 02:31 04/28/23 02:43 04/28/23 04:00 Temperature 97.6 F Pulse Rate 86 84 97 Respiratory Rate 20 20 24 H Blood Pressure 147/84 H Pulse Oximetry 94
[2023-04-28 13:04] LABS: Glucose Point of Care 121 mg/dl (65-105)
[2023-04-28 16:40] LABS: Glucose Point of Care 115 mg/dl (65-105)
--- NOTE | 2023-04-28 18:30 | PM.IMPN ---
Progress Note: A&P Assessment and Plan (1) Stage 3a chronic kidney disease: Code(s): N18.31 - Chronic kidney disease, stage 3a Status: Chronic (2) Pulmonary edema: Qualifiers: Chronicity: acute Qualified Code(s): J81.0 - Acute pulmonary edema Code(s): J81.1 - Chronic pulmonary edema Status: Acute Plan 52 y/o F presented here with respiratory distress and COVID+ with PMH of asthma/COPD, CHF, seizures, GERD, HLD, HTN, CAROLYNN, and vitamin D deficiency. Patient presented here from [facility] for hypoxia, low 80's on RA. Patient tested positive for COVID on 04/13. While awaiting EMS, facility provided patient with neb. After arrival, EMS placed patient on CPAP in route to the ED without much improvement, arrived with sat of 80%. Shortly after arrival, patient had seizure that lasted approximately 45 seconds, broke without pharmacological intervention. Patient was then intubated for airway protection and hypoxia. Workup revealed ARMIN of 3.3 (baseline 1.4), BNP 6500, lactate 2.3, and blood gas showed acidosis and hypoxia. CXR showed pulmonary edema v PNA. She has since been extubated and treated successfully for COPD, CAP, covid 19 pneumonia and acute CHF. She is on RA. She had altered mental status but is back to baseline which is for the most part non verbal. She does talk here and there. Pt had elevated troponins as high as 3.5 which have now downtrended. Dx with NSTEMI. Cardiology recommended conservative mgmt as she has a large body habitus precludes reasonable attempt at angiography + she has advanced kidney and recent ARMIN. Baseline sCR below 2 and was in 6's due to ARMIN this admission. sCR has since trended down. ARMIN was likely due to ATN and CHF. nephrology following. continue to trend. If sCR continues to stabilize and nephrology recommend no further acute mgmt, pt could go back to her [facility]. full code thanh Subjective Date/time seen: 04/28/23 18:30 Interval history: NAOE. pt is without complaints. this morning she had nausea but that has resolved s/p zofran administration Review of Systems Review of Systems: All systems reviewed & are unremarkable except as noted in HPI and below (subjective) Exam Const: General: comfortable and no acute distress Eyes: Pupils: Equal, round and reactive pupils present Neck: Neck: supple Resp: Effort & Inspection: normal respiratory effort Auscultation: clear to auscultation bilaterally Cardio: Rate: regular rate Rhythm: regular rhythm GI: GI Palp: Yes Soft to palpation Extrem: General: no edema Objective Data Vital Signs Vital Signs: Vital Signs - 24 hr 04/27/23 20:00 04/27/23 20:37 04/27/23 20:37 Temperature 99.2 F Pulse Rate 88 80 82 Respiratory Rate 24 H 20 Blood Pressure 159/87 H Pulse Oximetry 96 Oxygen Delivery 04/27/23 20:44 04/27/23 20:00 04/27/23 22:00 Temperature Pulse Rate 96 90 Respiratory Rate Blood Pressure Pulse Oximetry 97 Oxygen Delivery Room Air 04/28/23 00:00 04/28/23 00:00 04/28/23 02:00 Temperature 97.6 F Pulse Rate 108 H 85 103 H Respiratory Rate 22 H Blood Pressure 136/72 Pulse Oximetry 97 Oxygen Delivery 04/28/23 02:31 04/28/23 02:43 04/28/23 04:00 Temperature 97.6 F Pulse Rate 86 84 97 Respiratory Rate 20 20 24 H Blood Pressure 147/84 H Pulse Oximetry 94 Oxygen Delivery 04/28/23 04:00 04/28/23 05:48 04/28/23 07:09 Temperature Pulse Rate 106 H 107 H 105 H Respiratory Rate 18 Blood Pressure Pulse Oximetry Oxygen Delivery 04/28/23 07:11 04/28/23 07:19 04/28/23 07:50 Temperature 97.3 F L Pulse Rate 106 H 113 H Respiratory Rate 18 18 Blood Pressure 155/82 H Pulse Oximetry 98 99 Oxygen Delivery Room Air 04/28/23 09:05 04/28/23 08:00 04/28/23 08:00 Temperature Pulse Rate 112 H 108 H Respiratory Rate Blood Pressure Pulse Oximetry 97 Oxygen Deliv
--- NOTE | 2023-04-28 19:51 | PC.NURSE ---
This patient, Mirela Preston, was transferred to [[id number] ] on 04/28/23 at 1920. Personal belongings sent with patient. Report given to [Qi RODRIGES ]. Appropriate documentation sent with patient.
--- NOTE | 2023-04-28 22:07 | PM.PNPUL ---
Progress Note: A&P Assessment and Plan (1) Acute and chronic respiratory failure with hypoxia: Code(s): J96.21 - Acute and chronic respiratory failure with hypoxia Status: Acute (2) COVID-19: Code(s): U07.1 - COVID-19 Status: Acute (3) Asthma-COPD overlap syndrome: Code(s): J44.9 - Chronic obstructive pulmonary disease, unspecified Status: Acute Plan She was intubated for multiple days due to acute on chronic hypercapnic hypoxemic respiratory failure tolerating extubation.? She has asthma-COPD overlap, only medications listed for this are nebulized albuterol and ipratropium.? She lives in a facility, not clear is she uses additional medications for this condition. She is intellectually delayed, may have difficulty using inhalers. Using nebulized medications would be more effective. I would continue her short acting bronchodilators, wean O2, not adding additional Medications at this point. Shei s still recovery from acute on chronic kidney failure, decompensated heart failure with preserved ejection fraction; she needs to continue using PAP at night, needs to be discharged to home on BiPAP. Subjective Date/time seen: 04/28/23 22:07 Interval history: ESTABLISHED: Mirela Preston is a 52-year-old female with a history of stroke, COPD, CHF with preserved ejection fraction, seizure disorder, hypertension and iron deficiency anemia; admitted 11 days ago with acute hypoxemic respiratory failure and COVID.? Decompensated congestive heart failure also contributed to her respiratory failure. She was intubated, Her initial chest x-ray 04/15/23 showed diffuse lung disease in the right lung and the mid and lower lungs on the left consistent with pneumonia or possibly pulmonary edema.? Her her initial blood gas showed pH 7.24, pCO2 55, pO2 78 saturation 93% after intubation on CMV mode.? The respiratory acidosis was quickly corrected by the ventilator, she was extubated. ? She is restarting her albuterol on ipratropium nebulized today.? Her acute kidney injury is improving.? She is restarting several of her home medications.? She was too large for CT scan.? She was treated with dexamethasone, bronchodilators and empiric antibiotics.? She was extubated on 04/21 and then following day weaned off BiPAP to nasal cannula but had return to BiPAP due to increased work of breathing.? She is using BiPAP at night now on 2 L of oxygen during the day. 05/29/22 No new complaints. She is on 30% and sturatin is 97%. Review of Systems Review of Systems: All systems reviewed & are unremarkable except as noted in HPI and below Exam Narrative: GEN: Alert, not in distress. 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; no clubbing, cyanosis, or edema in other extremities PSYCH: sparse speech due to stroke with expressive aphasia Objective Data Vital Signs Vital Signs: Vital Signs - 24 hr 04/28/23 00:00 04/28/23 00:00 04/28/23 02:00 Temperature 36.4 C Pulse Rate 108 H 85 103 H Respiratory Rate 22 H Blood Pressure 136/72 Pulse Oximetry 97 Oxygen Delivery 04/28/23 02:31 04/28/23 02:43 04/28/23 04:00 Temperature 36.4 C Pulse Rate 86 84 97 Respiratory Rate 20 20 24 H Blood Pressure 147/84 H Pulse Oximetry 94 Oxygen Delivery 04/28/23 04:00 04/28/23 05:48 04/28/23 07:09 Temperature Pulse Rate 106 H 107 H 105 H Respiratory Rate 18 Blood Pressure Pulse Oximetry Oxygen Delivery 04/28/23 07:11 04/28/23 07:19 04/28/23 07:50 Temperature 36.3 C L Pulse Rate 106 H 113 H Respiratory Rate 18 18 Blood Pressure 155/82 H Pulse Oximetry 98 99 Oxygen Delivery Room
[2023-04-28 22:16] LABS: Glucose Point of Care 106 mg/dl (65-105)
[2023-04-29] VITALS (18 sets, daily range): BP systolic 104–157; BP diastolic 48–92; PULSE 88–107; RESP 16–20; TEMP 35.9–36.4; O2SAT 91–100
[2023-04-29 05:52] LABS: Basophils Percent Auto 0.5 % (0.2-1.2); Eosinophils Absolute Auto 0.3 K/mm3 (0-0.3); Eosinophils Percent Auto 3.8 % (0-4.4); Hematocrit 30.1 % (37.0-47.0); Hemoglobin 8.9 g/dL (12.0-15.0); Immature Granulocyte Absolute 0.03 K/mm3 (0.00-0.031); Immature Granulocyte Percent A 0.4 % (0-0.5); Lymphocytes Absolute Auto 1.69 K/mm3 (0.9-3.2); Lymphocytes Percent Auto 23.1 % (18.3-44.2); Mean Corpuscular HGB Conc 29.6 g/dl (32-36); Mean Corpuscular Hemoglobin 28.2 pg (26-34); Mean Corpuscular Volume 95.3 fl (80-100); Mean Platelet Volume 10.9 fl (7.4-10.4); Monocytes Absolute Auto 0.6 K/mm3 (0.1-0.6); Monocytes Percent Auto 7.8 % (2.6-8.5); Neutrophils Absolute Auto 4.7 K/mm3 (1.3-6.7); Neutrophils Percent Auto 64.4 % (45.5-73.1); Platelet Count Result 196 k/mm3 (150-375); Red Blood Count 3.16 M/mm3 (4.2-5.4); Red Cell Distribution Width 14.1 % (11.5-14.5); White Blood Count 7.3 K/mm3 (4.5-10.0)
[2023-04-29 05:59] LABS: Albumin Level 3.7 g/dL (3.5-5.1); Anion Gap 9 mmol/L (8-16); Blood Urea Nitrogen 59 mg/dL (7-17); Calcium 8.8 mg/dL (8.4-10.2); Carbon Dioxide 25 mmol/L (22-30); Chloride 111 mmol/L (98-107); Estimated CRCL calculation 26 ml/min; Estimated Glomerular Filt Rate 16; Glucose 101 mg/dL (65-110); Phosphorus 4.6 mg/dL (2.5-4.5); Potassium 4.4 mmol/L (3.4-5.0); Sodium 145 mmol/L (137-145)
[2023-04-29] MEDS: IPRATROPIUM BR 0.02% INH SOLN 0.5 MG/2.5 ML VIAL INHALATION ×3 (07:30→21:15)
[2023-04-29] MEDS: ALBUTEROL SULFATE NEB 2.5 MG/3 ML INH INHALATION ×3 (07:31→21:15)
[2023-04-29 08:01] LABS: Glucose Point of Care 100 mg/dl (65-105)
[2023-04-29] MEDS: ASPIRIN 81 MG CHEWABLE TABLET FEED TUBE (08:28)
[2023-04-29] MEDS: FERROUS SULFATE 325 MG TABLET DR PO ×2 (08:29→16:55)
[2023-04-29] MEDS: ATORVASTATIN 40 MG TABLET 80 MG FEED TUBE (08:29)
[2023-04-29] MEDS: PHENYTOIN SODIUM 100 MG EXTENDED RELEASE CAP 200 MG PO ×2 (08:29→16:55)
[2023-04-29] MEDS: PANTOPRAZOLE 40 MG TABLET PO (08:29)
[2023-04-29] MEDS: cloNIDine HCL 0.1 MG TABLET PO ×3 (08:29→16:55)
[2023-04-29] MEDS: carvediloL 6.25 MG TABLET FEED TUBE ×2 (08:29→21:34)
[2023-04-29 08:30] LABS: Anisocytosis 1+ (NORMAL); Hypochromasia 1+ (NORMAL); Platelet Estimate Adequate (Adequate); Schistocytes None Seen (NORMAL)
[2023-04-29] MEDS: ENOXAPARIN 30 MG/0.3 ML SYRINGE SUB-Q (08:30)
[2023-04-29] MEDS: TOLNAFTATE 1% POWDER 45 GM BTL 1 APPLIC TOPICAL ×2 (08:30→21:34)
[2023-04-29 08:47] LABS: Creatine Kinase 106 U/L (30-135)
[2023-04-29 09:01] LABS: Erythrocyte Sedimentation Rate > 140 mm/hr (0-20)
[2023-04-29 09:14] LABS: Complement C3 136 mg/dL (88-165)
--- NOTE | 2023-04-29 09:32 | P.PNNP_ITS ---
Progress Note: A&P Assessment and Plan (1) ARMIN (acute kidney injury): Code(s): N17.9 - Acute kidney failure, unspecified Status: Acute Assessment and Plan: * the patient has ARMIN. * suspect ATN due to infection (COVID + pneumonia) and CHF exacerbation * evaluation noted: * renal ultrasound with medical renal disease (incomplete visualization of saul kidney) * CPK okay * UA with blood and protein along with granular casts * urine electrolytes never done * Urine output 1400 in the last 24hours. * She is not on a routine diuretic nor IV fluids. * Volume status looks okay: Not much swelling and chest x-ray improved. * electrolytes okay * Creatinine massiel a bit to 3.7. * Reviewing, urinalysis does show little bit of blood. He has never had blood in her urine before she says. Will repeat the urinalysis, check serology and immunofixation, as well as urine electrolytes. * Her CK is normal. * Will check another creatinine tomorrow (2) Stage 3a chronic kidney disease: Code(s): N18.31 - Chronic kidney disease, stage 3a Status: Chronic Assessment and Plan: * creatinine was running around 1.4 - 1.5mg/dl in November 2021 * presumably secondary to hypertension and vascular disease as well as CHF * there may be a component of CKD progression since last admission... (3) Acute and chronic respiratory failure with hypoxia: Code(s): J96.21 - Acute and chronic respiratory failure with hypoxia Status: Acute Assessment and Plan: * on room air * breathing comfortably. (4) Pneumonia: Code(s): J18.9 - Pneumonia, unspecified organism Status: Acute Assessment and Plan: * Chest x-ray improved. * completed course of antibiotics (5) Acute exacerbation of congestive heart failure: Code(s): I50.9 - Heart failure, unspecified Status: Acute Assessment and Plan: * last echo 10/27 showed EF of 25-30% and diastolic dysfunction * volume overload on presentation * Latest chest x-ray is improved. * Intake/ output is negative. * for will follow along (6) AMS (altered mental status): Qualifiers: Altered mental status type: somnolence Qualified Code(s): R40.0 - Somnolence Code(s): R41.82 - Altered mental status, unspecified Status: Acute Assessment and Plan: * secondary to seizure likely precipirated by hypoxia * however, based on discussion with family, she appears at baseline * Head CT shows old infarctions * follow mentation (7) COVID-19: Code(s): U07.1 - COVID-19 Status: Acute Assessment and Plan: * off isolation Subjective Date/time seen: 04/29/23 09:32 Interval history: Patient is alert. She is just finishing her breakfast. She has no chest pain or shortness of breath. She says that she never had blood in the urine in the past that she knows of. Exam Narrative: General: Large female in NAD Heart: normal S1 and S2; no rub Lungs: breath sounds fairly clear anteriorly Abdomen: soft, nontender, nondistended, positive bowel sounds Extremities: no edema; s/p right AKA Skin: no rash Objective Data Vital Signs Vital Signs: Vital Signs - 24 hr 04/28/23 10:00 04/28/23 12:19 04/28/23 12:00 Temperature 97.1 F L Pulse Rate 112 H 91 114 H Respiratory Rate 20 Blood Pressure 14
--- NOTE | 2023-04-29 09:32 | PM.PNNEP ---
Progress Note: A&P Assessment and Plan (1) ARMIN (acute kidney injury): Code(s): N17.9 - Acute kidney failure, unspecified Status: Acute Assessment and Plan: the patient has ARMIN. suspect ATN due to infection (COVID + pneumonia) and CHF exacerbation evaluation noted: renal ultrasound with medical renal disease (incomplete visualization of saul kidney) CPK okay UA with blood and protein along with granular casts urine electrolytes never done Urine output 1400 in the last 24hours. She is not on a routine diuretic nor IV fluids. Volume status looks okay: Not much swelling and chest x-ray improved. electrolytes okay Creatinine massiel a bit to 3.7. Reviewing, urinalysis does show little bit of blood. He has never had blood in her urine before she says. Will repeat the urinalysis, check serology and immunofixation, as well as urine electrolytes. Her CK is normal. Will check another creatinine tomorrow (2) Stage 3a chronic kidney disease: Code(s): N18.31 - Chronic kidney disease, stage 3a Status: Chronic Assessment and Plan: creatinine was running around 1.4 - 1.5mg/dl in November 2021 presumably secondary to hypertension and vascular disease as well as CHF there may be a component of CKD progression since last admission... (3) Acute and chronic respiratory failure with hypoxia: Code(s): J96.21 - Acute and chronic respiratory failure with hypoxia Status: Acute Assessment and Plan: on room air breathing comfortably. (4) Pneumonia: Code(s): J18.9 - Pneumonia, unspecified organism Status: Acute Assessment and Plan: Chest x-ray improved. completed course of antibiotics (5) Acute exacerbation of congestive heart failure: Code(s): I50.9 - Heart failure, unspecified Status: Acute Assessment and Plan: last echo 10/27 showed EF of 25-30% and diastolic dysfunction volume overload on presentation Latest chest x-ray is improved. Intake/ output is negative. for will follow along (6) AMS (altered mental status): Qualifiers: Altered mental status type: somnolence Qualified Code(s): R40.0 - Somnolence Code(s): R41.82 - Altered mental status, unspecified Status: Acute Assessment and Plan: secondary to seizure likely precipirated by hypoxia however, based on discussion with family, she appears at baseline Head CT shows old infarctions follow mentation (7) COVID-19: Code(s): U07.1 - COVID-19 Status: Acute Assessment and Plan: off isolation Subjective Date/time seen: 04/29/23 09:32 Interval history: Patient is alert. She is just finishing her breakfast. She has no chest pain or shortness of breath. She says that she never had blood in the urine in the past that she knows of. Exam Narrative: General: Large female in NAD Heart: normal S1 and S2; no rub Lungs: breath sounds fairly clear anteriorly Abdomen: soft, nontender, nondistended, positive bowel sounds Extremities: no edema; s/p right AKA Skin: no rash Objective Data Vital Signs Vital Signs: Vital Signs - 24 hr 04/28/23 10:00 04/28/23 12:19 04/28/23 12:00 Temperature 97.1 F L Pulse Rate 112 H 91 114 H Respiratory Rate 20 Blood Pressure 144/77 H Pulse Oximetry 99 Oxygen Delivery Oxygen Flow Rate Fraction of Inspired Oxygen 04/28/23 14:03 04/28/23 14:00 04/28/23 14:13 Temperature Pulse Rate 112 H 104 H 108 H Respiratory Rate 20 22 H Blood Pressure Pulse Oximetry Oxygen Delivery Oxygen Flow Rate Fraction of Inspired Oxygen 04/28/23 16:03 04/28/23 16:00 04/28/23 18:00 Temperature 97.1 F L Pulse Rate 104 H 103 H 93 Respiratory Rate 22 H Blood Pressure 147/103 H Pulse Oximetry 92 Oxygen Delivery Oxygen Flow Rate Fraction of Inspired Oxygen 04/28/23 20:00 04/08
[2023-04-29 11:39] LABS: Creatinine Urine 102.6 mg/dL; Sodium Urine Random 71 meq/L; Urea Random Urine 634 MG/DL
[2023-04-29 11:43] LABS: Appearance Urine Cloudy (Clear); Bacteria Urine 4+ /hpf; Bilirubin Urine Negative (Negative); Blood Urine 3+ (Negative); Color Urine Yellow (Yellow); Glucose Urine UA Negative (Negative); Ketones Urine Negative (Negative); Leukocyte Esterase Ur 1+ LEU/UL (NEGATIVE); Need Manual Microscopic Reviewed; Nitrate Urine Negative (Negative); Non Pathogenic Casts >20; Protein Urine 3+ mg/dL (Negative); RBC Urine 21-50 /hpf (0-2); Specific Grav Ur 1.016 (1.001-1.035); Squamous Epithelial Cell Urine Occasional /hpf (Few); Urobilinogen Urine 0.2 mg/dL (<2.0); WBC Urine 21-50 /hpf (0-3); pH Urine 5.5 (5.0-9.0)
[2023-04-29 11:50] LABS: Add Urine Microscopic? YES
[2023-04-29 11:57] LABS: Total Protein Urine Random 597 mg/dL; Ur Ttl Prot Creatinine Ratio 5.82 mg/mg (0-0.20)
[2023-04-29 12:02] LABS: Glucose Point of Care 122 mg/dl (65-105)
--- NOTE | 2023-04-29 12:24 | PM.IMPN ---
Progress Note: A&P Assessment and Plan (1) Stage 3a chronic kidney disease: Code(s): N18.31 - Chronic kidney disease, stage 3a Status: Chronic Assessment and Plan: Stable on current medications, will continue with current treatment. (2) Pulmonary edema: Qualifiers: Chronicity: acute Qualified Code(s): J81.0 - Acute pulmonary edema Code(s): J81.1 - Chronic pulmonary edema Status: Acute Assessment and Plan: X-ray shows much improvement. Patient is clinically better. Plan is to continue current treatment monitor [place] Plan 52 y/o F presented here with respiratory distress and COVID+ with PMH of asthma/COPD, CHF, seizures, GERD, HLD, HTN, CAROLYNN, and vitamin D deficiency. Patient presented here from [facility] for hypoxia, low 80's on RA. Patient tested positive for COVID on 04/13. While awaiting EMS, facility provided patient with neb. After arrival, EMS placed patient on CPAP in route to the ED without much improvement, arrived with sat of 80%. Shortly after arrival, patient had seizure that lasted approximately 45 seconds, broke without pharmacological intervention. Patient was then intubated for airway protection and hypoxia. Workup revealed ARMIN of 3.3 (baseline 1.4), BNP 6500, lactate 2.3, and blood gas showed acidosis and hypoxia. CXR showed pulmonary edema v PNA. She has since been extubated and treated successfully for COPD, CAP, covid 19 pneumonia and acute CHF. She is on RA. She had altered mental status but is back to baseline which is for the most part non verbal. She does talk here and there. Pt had elevated troponins as high as 3.5 which have now downtrended. Dx with NSTEMI. Cardiology recommended conservative mgmt as she has a large body habitus precludes reasonable attempt at angiography + she has advanced kidney and recent ARMIN. Baseline sCR below 2 and was in 6's due to ARMIN this admission. sCR has since trended down. ARMIN was likely due to ATN and CHF. nephrology following. continue to trend. If sCR continues to stabilize and nephrology recommend no further acute mgmt, pt could go back to her usual living at [facility]. full code lovenox 04/28/2023 Patient is feeling much better now. Plan is to continue current treatment, monitor closely and if stays okay possible discharge home in the morning. Subjective Date/time seen: 04/29/23 12:24 Interval history: Patient was seen during the morning rounds today. Patient is quite awake and alert. Feeling slightly better. Decreased shortness of breath. No chest pain. No abdominal pain, nausea, no vomiting. Mood stable. Review of Systems Review of Systems: All systems reviewed & are unremarkable except as noted in HPI and below (subjective) ROS unobtainable: Yes unobtainable due to endotracheal tube, unobtainable due to medical condition and unobtainable due to mental status Exam Narrative: exam limited due to lack of participation Const: General: comfortable and no acute distress Other: non verbal Eyes: Pupils: Equal, round and reactive pupils present Neck: Neck: supple Resp: Effort & Inspection: normal respiratory effort Auscultation: clear to auscultation bilaterally, no crackles, no rales and no rhonchi Cardio: Rate: regular rate Rhythm: regular rhythm Heart sounds: no gallops, no murmurs and no rubs Neuro: Cranial nerves: Yes Equal, round and reactive pupils present Extrem: General: no edema Objective Data Vital Signs Vital Signs: Vital Signs - 24 hr 04/28/23 14:03 04/28/23 14:00 04/28/23 14:13 Temperature Pulse Rate 112 H 104 H 108 H Respiratory Rate 20 22 H Blood Pressure Pulse Oximetry Oxygen Delivery Oxygen Flow Rate Fraction of Inspired Oxygen 04/28/23 16:03 04/28/23 16:00 04/28/23 18:00 Temperature 36.2 C L Pulse Rate 104 H 103 H 93 Respiratory Rate 22 H Blood Pressure 147/103 H Pulse Oximetry 92 Oxygen Delivery Oxyge
[2023-04-29 17:10] LABS: Glucose Point of Care 105 mg/dl (65-105)
[2023-04-29 20:30] LABS: Glucose Point of Care 159 mg/dl (65-105)
[2023-04-30] VITALS (13 sets, daily range): BP systolic 150–173; BP diastolic 81–95; PULSE 80–101; RESP 18–20; TEMP 36.1–36.4; O2SAT 96–100
[2023-04-30] MEDS: ALBUTEROL SULFATE NEB 2.5 MG/3 ML INH INHALATION ×2 (02:47→14:05)
[2023-04-30] MEDS: IPRATROPIUM BR 0.02% INH SOLN 0.5 MG/2.5 ML VIAL INHALATION ×2 (02:47→14:06)
[2023-04-30 06:13] LABS: Albumin Level 3.6 g/dL (3.5-5.1); Anion Gap 11 mmol/L (8-16); Blood Urea Nitrogen 64 mg/dL (7-17); Calcium 8.7 mg/dL (8.4-10.2); Carbon Dioxide 22 mmol/L (22-30); Chloride 109 mmol/L (98-107); Estimated CRCL calculation 26 ml/min; Estimated Glomerular Filt Rate 16; Glucose 95 mg/dL (65-110); Phosphorus 4.6 mg/dL (2.5-4.5); Potassium 4.8 mmol/L (3.4-5.0); Sodium 142 mmol/L (137-145)
[2023-04-30] MEDS: carvediloL 6.25 MG TABLET FEED TUBE (08:12)
[2023-04-30] MEDS: ENOXAPARIN 30 MG/0.3 ML SYRINGE SUB-Q (08:12)
[2023-04-30] MEDS: cloNIDine HCL 0.1 MG TABLET PO ×3 (08:12→17:21)
[2023-04-30] MEDS: ASPIRIN 81 MG CHEWABLE TABLET FEED TUBE (08:12)
[2023-04-30] MEDS: PANTOPRAZOLE 40 MG TABLET PO (08:12)
[2023-04-30] MEDS: TOLNAFTATE 1% POWDER 45 GM BTL 1 APPLIC TOPICAL (08:12)
[2023-04-30] MEDS: FERROUS SULFATE 325 MG TABLET DR PO ×2 (08:12→17:21)
[2023-04-30] MEDS: PHENYTOIN SODIUM 100 MG EXTENDED RELEASE CAP 200 MG PO ×2 (08:12→17:21)
[2023-04-30] MEDS: ATORVASTATIN 40 MG TABLET 80 MG FEED TUBE (08:12)
[2023-04-30 08:43] LABS: Glucose Point of Care 109 mg/dl (65-105)
[2023-04-30 11:14] LABS: Alveolar/Arterial O2 Gradient 41.8 mmHg; Base Excess ABG 0.2 mEq/l (+/-2.0); Device NASAL CANNULA; Fractional Inspired Oxygen 28 %; HCO3 ABG 26.2 mEq/l (22.0-26.0); Modified Allen's Test Pass; Oxygen Content ABG 12.7 %vol (16.0-22.0); Oxygen Saturation ABG 97.2 % (95.0-100.0); Oxyhemoglobin 95.8 % THb (90.0-100.0); PCO2 ABG 48.8 mmHg (35.0-45.0); PO2 ABG 100.3 mmHg (80.0-100.0); PO2 FiO2 Ratio Arterial Blood 3.58 %; Site Drawn RIGHT RADIAL; Total Hemoglobin 9.3 g/dL (12.0-18.0); pH ABG 7.347 (7.350-7.450)
--- NOTE | 2023-04-30 11:42 | P.PNNP_ITS ---
Progress Note: A&P Assessment and Plan (1) ARMIN (acute kidney injury): Code(s): N17.9 - Acute kidney failure, unspecified Status: Acute Assessment and Plan: * the patient has ARMIN. * suspect ATN due to infection (COVID + pneumonia) and CHF exacerbation * evaluation noted: * renal ultrasound with medical renal disease (incomplete visualization of saul kidney) * CPK okay * UA with blood and protein along with granular casts * urine electrolytes never done * Urine output 775 yesterday. * She is not on a routine diuretic nor IV fluids. * Volume status looks okay: Not much swelling and chest x-ray improved. * electrolytes okay * Creatinine Stable at 3.7. * Repeat urinalysis still shows blood and white cells. Urine culture has been negative. No peripheral eosinophilia nor rash. Will see what her serology shows. * Check another renal panel in the morning (2) Stage 3a chronic kidney disease: Code(s): N18.31 - Chronic kidney disease, stage 3a Status: Chronic Assessment and Plan: * creatinine was running around 1.4 - 1.5mg/dl in November 2021 * presumably secondary to hypertension and vascular disease as well as CHF * there may be a component of CKD progression since last admission... (3) Acute and chronic respiratory failure with hypoxia: Code(s): J96.21 - Acute and chronic respiratory failure with hypoxia Status: Acute Assessment and Plan: * on room air * breathing comfortably it seems but is not responding. * Blood gas shows pCO2 is borderline high. * Will have nurse put the CPAP mask back (4) Pneumonia: Code(s): J18.9 - Pneumonia, unspecified organism Status: Acute Assessment and Plan: * Chest x-ray improved. * completed course of antibiotics (5) Acute exacerbation of congestive heart failure: Code(s): I50.9 - Heart failure, unspecified Status: Acute Assessment and Plan: * last echo 10/27 showed EF of 25-30% and diastolic dysfunction * volume overload on presentation * Latest chest x-ray is improved. * urine output a little bit down yesterday. 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 She would not wake up. I talked with nursing and they said that she was awake earlier and was eating breakfast. Will check a blood gas and see what that shows. Exam Narrative: General: Large female in NAD Heart: normal S1 and S2; no rub Lungs: breath sounds fairly clear anteriorly Abdomen: bowel sounds positive nontender Extremities: no edema; s/p right AKA Skin: no rash or subcu nodules Objective Data Vital Signs Vital Signs: Vital Signs - 24 hr 04/29/23 13:21 04/29/23 12:00 04/29/23 13:35
--- NOTE | 2023-04-30 11:42 | PM.PNNEP ---
Progress Note: A&P Assessment and Plan (1) ARMIN (acute kidney injury): Code(s): N17.9 - Acute kidney failure, unspecified Status: Acute Assessment and Plan: the patient has ARMIN. suspect ATN due to infection (COVID + pneumonia) and CHF exacerbation evaluation noted: renal ultrasound with medical renal disease (incomplete visualization of saul kidney) CPK okay UA with blood and protein along with granular casts urine electrolytes never done Urine output 775 yesterday. She is not on a routine diuretic nor IV fluids. Volume status looks okay: Not much swelling and chest x-ray improved. electrolytes okay Creatinine Stable at 3.7. Repeat urinalysis still shows blood and white cells. Urine culture has been negative. No peripheral eosinophilia nor rash. Will see what her serology shows. Check another renal panel in the morning (2) Stage 3a chronic kidney disease: Code(s): N18.31 - Chronic kidney disease, stage 3a Status: Chronic Assessment and Plan: creatinine was running around 1.4 - 1.5mg/dl in November 2021 presumably secondary to hypertension and vascular disease as well as CHF there may be a component of CKD progression since last admission... (3) Acute and chronic respiratory failure with hypoxia: Code(s): J96.21 - Acute and chronic respiratory failure with hypoxia Status: Acute Assessment and Plan: on room air breathing comfortably it seems but is not responding. Blood gas shows pCO2 is borderline high. Will have nurse put the CPAP mask back (4) Pneumonia: Code(s): J18.9 - Pneumonia, unspecified organism Status: Acute Assessment and Plan: Chest x-ray improved. completed course of antibiotics (5) Acute exacerbation of congestive heart failure: Code(s): I50.9 - Heart failure, unspecified Status: Acute Assessment and Plan: last echo 10/27 showed EF of 25-30% and diastolic dysfunction volume overload on presentation Latest chest x-ray is improved. urine output a little bit down yesterday. Creatinine is stable P watch 1 more day (6) AMS (altered mental status): Qualifiers: Altered mental status type: somnolence Qualified Code(s): R40.0 - Somnolence Code(s): R41.82 - Altered mental status, unspecified Status: Acute Assessment and Plan: secondary to seizure likely precipirated by hypoxia however, based on discussion with family, she appears at baseline Head CT shows old infarctions follow mentation will check 24hour urine creatinine (7) COVID-19: Code(s): U07.1 - COVID-19 Status: Acute Assessment and Plan: off isolation Subjective Date/time seen: 04/30/23 11:42 Interval history: Patient is sleepy. She would not wake up. I talked with nursing and they said that she was awake earlier and was eating breakfast. Will check a blood gas and see what that shows. Exam Narrative: General: Large female in NAD Heart: normal S1 and S2; no rub Lungs: breath sounds fairly clear anteriorly Abdomen: bowel sounds positive nontender Extremities: no edema; s/p right AKA Skin: no rash or subcu nodules Objective Data Vital Signs Vital Signs: Vital Signs - 24 hr 04/29/23 13:21 04/29/23 12:00 04/29/23 13:35 Temperature Pulse Rate 94 100 96 Respiratory Rate 20 20 Blood Pressure Pulse Oximetry Oxygen Delivery Oxygen Flow Rate Fraction of Inspired Oxygen 04/29/23 14:00 04/29/23 16:00 04/29/23 21:00 Temperature 96.6 F L 97.6 F Pulse Rate 93 97 100 Respiratory Rate 16 19 Blood Pressure 148/92 H 144/86 H Pulse Oximetry 100 100 Oxygen Delivery Oxygen Flow Rate Fraction of Inspired Oxygen 04/29/23 21:15 04/29/23 21:18 04/29/23 21:28 Temperature Pulse Rate 92 89 Respiratory Rate 20 20 Blood Pressure Pulse Oximetry 97
[2023-04-30 12:02] LABS: Glucose Point of Care 107 mg/dl (65-105)
--- NOTE | 2023-04-30 14:50 | PM.DS ---
DS: Admitting Diagnosis Discharge Date 04/30/23 Admitting Diagnosis COVID, ARDS DS: Discharge Diagnosis Discharge Diagnosis (1) ARMIN (acute kidney injury): Code(s): N17.9 - Acute kidney failure, unspecified Status: Acute (2) Stage 3a chronic kidney disease: Code(s): N18.31 - Chronic kidney disease, stage 3a Status: Chronic (3) Hypernatremia: Code(s): E87.0 - Hyperosmolality and hypernatremia Status: Acute (4) Acute and chronic respiratory failure with hypoxia: Code(s): J96.21 - Acute and chronic respiratory failure with hypoxia Status: Acute (5) Pneumonia: Code(s): J18.9 - Pneumonia, unspecified organism Status: Acute (6) Acute exacerbation of congestive heart failure: Code(s): I50.9 - Heart failure, unspecified Status: Acute (7) AMS (altered mental status): Qualifiers: Altered mental status type: somnolence Qualified Code(s): R40.0 - Somnolence Code(s): R41.82 - Altered mental status, unspecified Status: Acute (8) Anemia: Code(s): D64.9 - Anemia, unspecified Status: Acute (9) COVID-19: Code(s): U07.1 - COVID-19 Status: Acute DS: Summary Hospital Course Hospital Course: 52 y/o F presented here with respiratory distress and COVID+ with PMH of asthma/COPD, CHF, seizures, GERD, HLD, HTN, CAROLYNN, and vitamin D deficiency. Patient presented here from [facility] for hypoxia, low 80's on RA. Patient tested positive for COVID on 04/13. While awaiting EMS, facility provided patient with neb. After arrival, EMS placed patient on CPAP in route to the ED without much improvement, arrived with sat of 80%. Shortly after arrival, patient had seizure that lasted approximately 45 seconds, broke without pharmacological intervention. Patient was then intubated for airway protection and hypoxia. Workup revealed ARMIN of 3.3 (baseline 1.4), BNP 6500, lactate 2.3, and blood gas showed acidosis and hypoxia. CXR showed pulmonary edema v PNA.Patient was started on IV antibiotics and they were finished on 04/24/2023. She has since been extubated and treated successfully for COPD, CAP, covid 19 pneumonia and acute CHF. She is on RA. She had altered mental status but is back to baseline which is for the most part non verbal. She does talk here and there. Pt had elevated troponins as high as 3.5 which have now downtrended. Dx with NSTEMI. Cardiology recommended conservative mgmt as she has a large body habitus precludes reasonable attempt at angiography + she has advanced kidney and recent ARMIN. patient had labs done in the summer of 2021 which revealed a kidney function a between 1.5 and 2.5. Earlier this month patients creatinine jumped between 3 and 6. Patient has been seen by Nephrology and they have done a complete workup on the patient. Is believe that patient may be at her new baseline. It is still advised that she follow-up with nephrology as an outpatient. ARMIN was likely due to ATN and CHF. Patient has stabilized and nephrology management as an outpatient is what is recommended. she is medically cleared for discharge at this time. Time Spent with Patient Time attestation: Total time spent providing and/or coordinating discharge services: Exam Narrative: GENERAL: Comfortable, no acute distress, morbid obesity HENMT: moist mucous membranes EYES: EOM intact b/l NECK: no lymphadenopathy RESPIRATORY: wet sounding but at baseline CARDIO: RRR GI: soft, nontender, bowel sounds present SKIN: no rashes EXTREMITIES: no edema; Right leg amputation DS: Data Data Completed and Pending Labs on day of discharge: Labs from last 24 hours 04/30/23 04/30/23 04/30/23 11:45 10:51 08:30 Puncture Site Right radial ABG pH 7.347 L ABG pCO2 48.8 H ABG pO2 100.3 H ABG PO2/FiO2 Ratio 3.58 ABG HCO3 26.2 H ABG O2 Saturation 97.2 ABG O2 Content 12.7 L ABG Base Excess 0.2 A-a Gradien
[2023-04-30 17:12] LABS: Glucose Point of Care 94 mg/dl (65-105)
[2023-05-02 21:49] LABS: ANCA Screen Negative (Negative)
[2023-05-02 23:26] LABS: Kappa\\Lambda Light Chains 1.89 (0.26-1.65)
[2023-05-03 17:09] LABS: Anti Glomerular Basement Memb <1.0 AI (<1.0)
[2023-05-03 20:01] LABS: Complement Total CH50 >60 U/mL (31-60)
[2023-05-09 23:08] LABS: Albumin 58 %; Creat 24 Hr 1.16 g/24 h (0.50-2.15); Pro/Creat Ratio 3643 mg/g creat (<150); Pro/Creat Ratio mg/mg 3.643 (<0.150); Protein,total, 24 Hr Ur 4230 mg/24 h (<150)
== END 2023-04-30 18:05 | DRG 720 ==
LOC: ANHED 09:47 → ANHICU 14:05 → ANHIMU 04-24 09:46 → ANH2MED 04-28 19:15
PROVIDERS: General Practice; Internal Medicine; Internal Medicine Nephrology; Admitting Provider Internal Medicine; Emergency Provider Preventive Medicine Aerospace Medicine; PCP Internal Medicine; Visit Provider Internal Medicine Critical Care Medicine
DX: A41.89 Other specified sepsis (principal); J96.21 Acute and chronic respiratory failure with hypoxia; U07.1 COVID-19; K21.9 Gastro-esophageal reflux disease without esophagitis; R65.20 Severe sepsis without septic shock; J18.9 Pneumonia, unspecified organism; J12.82 Pneumonia due to coronavirus disease 2019; E55.9 Vitamin D deficiency, unspecified; E78.5 Hyperlipidemia, unspecified; G40.909 Epilepsy, unspecified, not intractable, without status epilepticus; J44.89 Other specified chronic obstructive pulmonary disease; F79 Unspecified intellectual disabilities; E87.5 Hyperkalemia; I13.0 Hypertensive heart and chronic kidney disease with heart failure and stage 1 through stage 4 chronic kidney disease, or unspecified chronic kidney disease; I21.A1 Myocardial infarction type 2; E66.01 Morbid (severe) obesity due to excess calories; I50.23 Acute on chronic systolic (congestive) heart failure; I43 Cardiomyopathy in diseases classified elsewhere; N17.9 Acute kidney failure, unspecified; N18.31 Chronic kidney disease, stage 3a; D50.9 Iron deficiency anemia, unspecified; Z86.73 Personal history of transient ischemic attack (TIA), and cerebral infarction without residual deficits; Z87.891 Personal history of nicotine dependence; Z68.42 Body mass index [BMI] 45.0-49.9, adult; Z89.611 Acquired absence of right leg above knee
CPT/HCPCS: 31500; 36415; 36430; 36600; 70450; 71045; 76775; 80048; 80053; 80069; 80186; 81001; 82140; 82375; 82550; 82570; 82805; 82948; 83050; 83520; 83605; 83690; 83735; 83880; 83883; 84145; 84156; 84300; 84443; 84478; 84484; 84540; 85025; 85027; 85610; 85652; 85730; 86036; 86038; 86140; 86160; 86162; 86225; 86334; 86335; 86850; 86900; 86901; 86923; 87040; 87070; 87086; 87088; 87205; 87449; 87637; 87899; 92610; 93005; 94002; 94003; 94640; 94762; 96365; 96366; 96367; 96368; 96375; 99285; A9270; C1751; C8929; C9113; G0378; G0379; J0248; J0456; J0613; J0696; J1100; J1165; J1644; J1650; J1815; J1940; J2250; J2405; J2704; J2930; J2997; J3010; J3475; J7030; J7050; J7060; J7070; P9016; P9047; Q9957

== ENCOUNTER 2023-05-17 08:04 | Inpatient (IN) | payer BC, SELFPAY ==
[2023-05-17] VITALS (69 sets, daily range): BP systolic 114–225; BP diastolic 73–136; PULSE 95–140; RESP 16–45; TEMP 36.2–37.6; O2SAT 92–100; BMI 50.1
--- NOTE | ~2023-05-17 | XR_ITS ---
EXAMINATION: XR chest 1V portable INDICATION: CHF exacerbation TECHNIQUE: Portable AP chest at 0510 hours COMPARISON: 05/20/2023 FINDINGS: Cardiomegaly is noted. A mild diffuse interstitial pattern persists but has improved. No pl eural effusion or pneumothorax. Left basilar airspace opacities persist without significant change. IMPRESSION: 1. Cardiomegaly with improving pulmonary edema. 2. Stable left basilar airspace opacity, consistent with atelectasis versus pneumonia. Reviewed, dictated and finalized at location F. TECHNICIAN IMPRESSION: 1. Cardiomegaly with improving pulmonary edema. 2. Stable left basilar airspace opacity, consistent with atelectasis versus pne umonia.
--- NOTE | ~2023-05-17 | XR_ITS ---
Portable chest x-ray Comparison: 05/21/2023 Clinical History: CHF Findings: There is minimal basilar haziness. Cardiomediastinal silhouette is stable. Bones and soft tissues are unremarkable. Impression: Probable minimal bibasilar pulmonary edema. Reviewed, dictated and finalized at [facility]. ECT MANAGEMENT PROFESSOR Impression: Probable minimal bibasilar pulmonary edema.
--- NOTE | ~2023-05-17 | XR_ITS ---
Portable chest x-ray Comparison: 04/30/2023 Clinical History: Respiratory distress Findings: There is extensive hazy pulmonary disease, more confluent consolidation at the left lung b ase. Cardiomediastinal silhouette is stable. Bones and soft tissues are unremarkable. Impression: Extensive hazy pulmonary disease with more confluent consolidation left lung base. Correlate for adva nced pulmonary edema versus infection. Reviewed, dictated and finalized at [facility]. FINISHER Impression: Extensive hazy pulmonary disease with more confluent consolidation left lung ba se. Correlate for advanced pulmonary edema versus infection.
--- NOTE | ~2023-05-17 | XR_ITS ---
Portable chest x-ray Comparison: 05/17/2023 Clinical History: CHF Findings: There is probable mild bibasilar pulmonary edema, with more confluent consolidation left l mary base. Cardiomediastinal silhouette is stable. Bones and soft tissues are unremarkable. Impression: Stable bibasilar pulmonary disease, worst at the left lung base. Correlate for pulmonary edema/atelec tasis versus infection. Reviewed, dictated and finalized at location . GER DATABASE Impression: Stable bibasilar pulmonary disease, worst at the left lung base. Correlate for pulmonary edema/atelectasis versus infection.
--- NOTE | ~2023-05-17 | XR_ITS ---
Portable chest x-ray Comparison: 05/18/2023 Clinical History: CHF Findings: There is probable left lower lobe airspace consolidation. Right lung clear. There are mini mal central congestive changes. Cardiomediastinal silhouette is stable. Bones and soft tissues are u nremarkable. Impression: Probable left lower lobe atelectasis versus pneumonia. Minimal central congestive change. Reviewed, dictated and finalized at location . DARY APPRENTICE Impression: Probable left lower lobe atelectasis versus pneumonia. Minimal central congestive change.
--- NOTE | ~2023-05-17 | XR_ITS ---
EXAMINATION: XR chest 1V portable INDICATION: CHF exacerbation TECHNIQUE: Portable AP chest at 0534 hours COMPARISON: 05/19/2023 FINDINGS: There is a mild, diffuse interstitial pattern. Left basilar airspace opacities are unchange d. The cardiomediastinal silhouette is stable. No pleural effusion or pneumothorax. IMPRESSION: 1. Mild diffuse lung disease, consistent with pneumonia and/or pulmonary edema. 2. Stable left basilar airspace opacities, consistent with atelectasis versus pneumonia. Reviewed, dictated and finalized at location [facility]. ERY ASSOCIATE IMPRESSION: 1. Mild diffuse lung disease, consistent with pneumonia and/or pulmonary edema. 2. Stable left basilar airspace opacities, consistent with atelectasis versus p neumonia.
--- NOTE | 2023-05-17 08:14 | ECG_ITS ---
Measurements Intervals [place] Rate: 111 P: 63 W[place]: 175 QRS: 5 QRSD: 133 T: 200 QT: 351 QTc: 478 Interpretive Statements SINUS TACHYCARDIA POSSIBLE LEFT ATRIAL ENLARGEMENT INTRAVENTRICULAR CONDUCTION DELAY DELAYED PRECORDIAL R/S TRANSITION LEFT VENTRICULAR HYPERTROPHY AND ST-T CHANGE BORDERLINE ST-T WAVE ABNORMALITY- INFERIOR LEADS BASELINE WANDER- I, II, III, AVR, AVL, AVF ABNORMAL ECG COMPARED TO ECG 04/16/2023 12:33:45 LEFT VENTRICULAR HYPERTROPHY NOW PRESENT Electronically Signed On 05-17-2023 8:27:10 [employer] by Yasir Thomas D.O.
[2023-05-17 08:40] LABS: Alveolar/Arterial O2 Gradient 221.7 mmHg; Base Excess ABG -4.5 mEq/l (+/-2.0); Carboxyhemoglobin 0.2 % THb (0-2.0); Device NON-INVASIVE VENT; Fractional Inspired Oxygen 100 %; HCO3 ABG 20.9 mEq/l (22.0-26.0); Methemoglobin ABG 0.3 %THb (0-1.5); Modified Allen's Test Pass; Non-Invasive Expiratory Pressure 7 CMH2O; Non-Invasive Inspiratory Pressure 14 CMH2O; Non-Invasive Vent Rate 18 /MIN; Oxygen Content ABG 13.5 %vol (16.0-22.0); Oxygen Saturation ABG 99.8 % (95.0-100.0); Oxyhemoglobin 98.6 % THb (90.0-100.0); PCO2 ABG 39.3 mmHg (35.0-45.0); PO2 FiO2 Ratio Arterial Blood 4.52 %; Reduced Hemoglobin 0.9 %THb (0-5.0); Site Drawn RIGHT RADIAL; Total Hemoglobin 8.8 g/dL (12.0-18.0); pH ABG 7.343 (7.350-7.450)
[2023-05-17 08:45] LABS: Basophils Percent Auto 0.4 % (0.2-1.2); Eosinophils Absolute Auto 0.3 K/mm3 (0-0.3); Eosinophils Percent Auto 2.5 % (0-4.4); Hematocrit 25.1 % (37.0-47.0); Hemoglobin 7.4 g/dL (12.0-15.0); Immature Granulocyte Absolute 0.06 K/mm3 (0.00-0.031); Immature Granulocyte Percent A 0.5 % (0-0.5); Lymphocytes Absolute Auto 1.74 K/mm3 (0.9-3.2); Lymphocytes Percent Auto 15.9 % (18.3-44.2); Mean Corpuscular HGB Conc 29.5 g/dl (32-36); Mean Corpuscular Hemoglobin 28.9 pg (26-34); Mean Platelet Volume 10.9 fl (7.4-10.4); Monocytes Absolute Auto 0.5 K/mm3 (0.1-0.6); Monocytes Percent Auto 4.4 % (2.6-8.5); Neutrophils Absolute Auto 8.3 K/mm3 (1.3-6.7); Neutrophils Percent Auto 76.3 % (45.5-73.1); Platelet Count Result 188 k/mm3 (150-375); Red Blood Count 2.56 M/mm3 (4.2-5.4); Red Cell Distribution Width 15.6 % (11.5-14.5); White Blood Count 10.9 K/mm3 (4.5-10.0)
[2023-05-17 08:51] LABS: INR 1.2; Prothrombin Time 16.1 Seconds (11.1-14.7)
[2023-05-17 08:52] LABS: Partial Thromboplastin Time 30.1 SECONDS (22.3-36.8)
[2023-05-17 08:54] LABS: Alanine Aminotransferase 24 U/L (6-35); Albumin Level 3.5 g/dL (3.5-5.1); Alkaline Phosphatase 111 U/L (38-126); Anion Gap 8 mmol/L (8-16); Aspartate Amino Transferase 29 U/L (14-36); Bilirubin,Total 0.5 mg/dL (0.2-1.3); Blood Urea Nitrogen 54 mg/dL (7-17); Calcium 8.4 mg/dL (8.4-10.2); Carbon Dioxide 22 mmol/L (22-30); Chloride 113 mmol/L (98-107); Estimated CRCL calculation 28 ml/min; Estimated Glomerular Filt Rate 17; Glucose 121 mg/dL (65-110); Potassium 4.8 mmol/L (3.4-5.0); Sodium 143 mmol/L (137-145)
[2023-05-17 09:01] LABS: Anisocytosis 1+ (NORMAL); Platelet Estimate Adequate (Adequate); Schistocytes None Seen (NORMAL)
[2023-05-17 09:03] LABS: Lactic Acid Reflex 0.7 mmol/L (0.7-2.0)
[2023-05-17 09:19] LABS: NT Pro B Type Natriuretic Pept 17600 pg/mL (19.9-100)
[2023-05-17 09:29] LABS: Influenza A QL RT-PCR Negative (Negative); Influenza B QL RT-PCR Negative (Negative); RSV RNA, RT-PCR Negative (Negative); SARS-CoV-2 RNA PCR Negative (Negative)
[2023-05-17] MEDS: hydrALAZINE HCL 20 MG/ML VIAL 10 MG IV PUSH (09:56)
--- NOTE | 2023-05-17 10:46 | PC.NURSE ---
Patient found pulling at mask. Patient appears anxious. Patient tachycardic and tachypneic. EDP made aware. VORB for 0.5 mg ativan IVP.
[2023-05-17] MEDS: LORazepam INJ (*CRX) 2 MG/ML VIAL 0.5 MG IM (10:51)
--- NOTE | 2023-05-17 11:01 | PC.NURSE ---
pt showing increased in WOB, RR between 30-40. edp at bedside, nno at this time
--- NOTE | 2023-05-17 11:02 | ED.SOB ---
HPI - SOB/Dyspnea General Chief Complaint: Shortness of Breath/Dyspnea Stated Complaint: resp distress Time Seen by Provider: 05/17/23 08:13 Source: patient and EMS Mode of arrival: EMS Limitations: no limitations History of Present Illness HPI Narrative: 52-year-old with a history of hypertension, COPD on home oxygen, morbid obesity, CKD stage IIIB, status post a KI on the right with brought in from custodial with complaints of severe shortness of breath which started this morning upon EMS arrival patient was tachypneic with a respiratory rate of 40 in she was phoned in moderate respiratory distress he was placed on CPAP and was later transferred to the ER. Upon arrival patient states she is feeling slightly better. She denied any chest pain , cough or fever or chills. She was given IV Solu-Medrol 125 mg and lidocaine enroute to the hospital MD elicited complaint: shortness of breath Pertinent past history: COPD, congestive heart failure and other (CKD) Onset (ago): hour(s) (1) Timing: constant Severity: severe Exacerbating factors: nothing Relieving factors: oxygen Known history of: COPD and congestive heart failure Associated symptoms: denies other symptoms Related Data Home Medications Medication Instructions Recorded Confirmed acetaminophen 325 mg tablet 650 mg PO Q6H PRN Pain (Scale 08/26/21 04/15/23 (Tylenol) Score 1-3) aspirin 81 mg chewable tablet 81 mg PO DAILY 08/26/21 04/15/23 (Aspirin Childrens) atorvastatin 80 mg tablet (Lipitor) 80 mg PO HS 08/26/21 04/15/23 benzonatate 200 mg capsule 200 mg PO Q8H PRN Cough 08/26/21 04/15/23 calcium carb-vit D3-minerals 600 2 tablet PO DAILY 08/26/21 04/15/23 mg calcium-400 unit tablet clonidine HCl 0.2 mg tablet 0.2 mg PO TID 08/26/21 04/15/23 ergocalciferol (vitamin D2) 1,250 50,000 unit PO WEEKLY 08/26/21 04/15/23 mcg (50,000 unit) capsule (Vitamin D2) ferrous sulfate 325 mg (65 mg 325 mg PO BID 08/26/21 04/15/23 iron) tablet furosemide 40 mg tablet (Lasix) 40 mg PO DAILY 08/26/21 04/15/23 ipratropium 0.5 mg-albuterol 3 mg 0.5 mg inhalation BID PRN 08/26/21 04/15/23 (2.5 mg base)/3 mL nebulization Shortness Of Breath Or Wheezing soln isosorbide mononitrate 30 mg 30 mg PO DAILY 08/26/21 04/15/23 tablet,extended release 24 hr nifedipine 60 mg tablet,extended 60 mg PO HS 08/26/21 04/15/23 release phenytoin 100 mg/4 mL oral 200 mg PO DAILY 08/26/21 04/15/23 suspension escitalopram oxalate 10 mg tablet 1 tablet PO DAILY 10/30/21 04/15/23 phenytoin 100 mg/4 mL oral 200 mg PO QPM 10/30/21 04/15/23 suspension spironolactone 25 mg tablet 1 tablet PO DAILY 10/30/21 04/15/23 nystatin 100,000 unit/gram topical 1 applic topical PRN PRN Rash 11/22/21 04/15/23 powder labetalol 200 mg tablet 200 mg PO BID 04/15/23 04/15/23 Allergies Allergy/AdvReac Type Severity Reaction Status Date / Time No Known Allergies Allergy Verified 11/22/21 16:08 Review of Systems Review of Systems: All systems reviewed & are unremarkable except as noted in HPI and below Constitutional: Constitutional: Reports no additional constitutional complaints Eyes: Eyes: Reports no additional eye complaints ENT: Reports system reviewed and no additional complaints, except as documented Cardiovascular: Cardiovascular: Reports no additional cardiovascular complaints Respiratory: Respiratory: Reports as per HPI Gastrointestinal: Gastrointestinal: Reports no additional gastrointestinal complaints Integumentary/Breasts: Skin/Breast: Reports system reviewed and no additional complaints, except as docu Neurologic: Reports system reviewed and no additional complaints, except as documented Psychiatric: Psychiatric: Reports no additional psychiatric complaints Endocrine: Endocrine: Reports no additional endocrine complaints PMFSH Past Medical History Medical History Asthma-COPD overlap syndrome Cerebrovascular accident
[2023-05-17] MEDS: FUROSEMIDE INJ 100 MG/10 ML VIAL 80 MG IV PUSH (11:15)
--- NOTE | 2023-05-17 13:09 | WPDCNINT ---
Assessment and Plan Assessment and plan (1) Acute and chronic respiratory failure with hypoxia: Code(s): J96.21 - Acute and chronic respiratory failure with hypoxia Status: Acute Assessment and Plan: Patient presented with shortness of breath from a [place] [facility] along with tachycardia and tachypnea and hypertension -chest x-ray: Extensive hazy pulmonary disease with more confluent consolidation left lung base. Correlate for advanced pulmonary edema versus infection -patient did receive Solu-Medrol 125 mg x1 by EMS -placed on BiPAP in the ER, ABGs were acceptable -wean FiO2 to maintain O2 sats > 90% -will give patient small dose of Ativan to calm her nerves as she states she is anxious -also discussed with the patient that if her respiratory status worsens she may require intubation and mechanical ventilation to which she is agreeable (2) Pneumonia: Code(s): J18.9 - Pneumonia, unspecified organism Status: Acute Assessment and Plan: Chest x-ray as above, could be be related to pneumonia versus pulmonary edema -started patient on ceftriaxone and vancomycin (3) Acute exacerbation of CHF (congestive heart failure): Qualifiers: Heart failure type: diastolic Qualified Code(s): I50.33 - Acute on chronic diastolic (congestive) heart failure Code(s): I50.9 - Heart failure, unspecified Status: Acute Assessment and Plan: Chest x-ray shows possible pulmonary edema versus [place] [address] on admission -patient received Lasix 80 mg IV x1 in the ER, responding well with almost 750 mL in urine so far -may have to repeat Lasix again today 04/17/2023 Echocardiogram: LV dilatation with severe global systolic dysfunction, EF 30%, grade 1 diastolic dysfunction, no obvious valvular dysfunction although the quality of exam was very challenging, RVSP 21 mmHg. Patient is on multiple medications at home her heart failure including carvedilol, Lasix, isosorbide mononitrate, Entresto, spironolactone patient currently NPO due to being on BiPAP, tachypneic and in respiratory distress, will restart once able to take p.o. (4) CKD (chronic kidney disease) stage 3, GFR 30-59 ml/min: Qualifiers: Chronic kidney disease stage 3 subtype: stage 3a (GFR 45-59) Qualified Code(s): N18.31 - Chronic kidney disease, stage 3a Code(s): N18.30 - Chronic kidney disease, stage 3 unspecified Status: Acute Assessment and Plan: Patient has history of chronic kidney disease stage 3 -was recently in the hospital in April 2023 -will consult Nephrology -continue diuresis -monitor urine output, renal function electrolytes (5) Hypertensive urgency: Code(s): I16.0 - Hypertensive urgency Status: Acute Assessment and Plan: Patient with blood pressures of 211/121, patient on multiple medications at home including labetalol, carvedilol, clonidine, furosemide, spironolactone, Imdur, nifedipine -have ordered p.r.n. metoprolol IV and p.r.n. hydralazine IV -continues to have elevated blood pressures, start nitro glycerin infusion given patient has heart failure (6) Elevated troponin: Code(s): R77.8 - Other specified abnormalities of plasma proteins Status: Acute Assessment and Plan: troponin was positive at 1.030, likely related to ischemic demand secondary to respiratory failure -will repeat troponin -cardiology has been consult (7) Seizure: Code(s): R56.9 - Unspecified convulsions Status: Acute Assessment and Plan: Patient on [facility]in at [place] [facility] -will switch to IV phenytoin 200 mg IV q.12 hours (discussed with pharmacy) Plan DVT prophylaxis: Heparin SQ Stress ulcer prophylaxis: Protonix IV Nutrition: NPO for now Code Status: Full code Critical Care Time Spent: 51 minutes Due to a high probability of clinically significant, life threatening deterioration, the patient required my highest level of p
[2023-05-17] MEDS: hydrALAZINE HCL 20 MG/ML VIAL IV PUSH (13:14)
[2023-05-17] MEDS: METOPROLOL TARTRATE INJ 5 MG/5 ML VIAL IV PUSH (13:14)
[2023-05-17] MEDS: cefTRIAXone 2 GM/NS 100 ML 2 GM/100 ML BAG IVPB (13:19)
[2023-05-17] MEDS: LORazepam INJ (*CRX) 2 MG/ML VIAL 1 MG IV PUSH (13:24)
[2023-05-17] MEDS: BUDESONIDE RESPULE NEB 0.5 MG/2 ML AMP INHALATION ×2 (13:39→21:01)
[2023-05-17] MEDS: VANCOMYCIN 1,250 MG/NS 250 ML 1,250 MG/250 ML BAG 166.67 MG IVPB ×2 (13:59→15:28)
--- NOTE | 2023-05-17 14:00 | PM.CNNEP ---
Assessment and Plan Assessment and plan (1) ARMIN (acute kidney injury): Code(s): N17.9 - Acute kidney failure, unspecified Status: Acute Assessment and Plan: noted on previous hospitalization here at [place] in April 2022 discharged with a creatinine of 3.7mg/dl suspected etiology was ATN due to infection (COVID + pneumonia) and CHF exacerbation evaluation during April 2023 admission noted: renal ultrasound with medical renal disease (incomplete visualization of saul kidney) CPK okay UA with blood and protein along with?granular casts urine electrolytes never done no peripheral eosinophilia or rash serologies (GISELA, ANCA, dsDNA-Ab, antiGBM-ab, complements, and serm/urine immunofixation) were all negative it would seems that her renal function has still not recovered based on admission labs or perhaps she has a new baseline creatinine she 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 follow trend of repeat labs and UOP (2) Stage 3a chronic kidney disease: Code(s): N18.31 - Chronic kidney disease, stage 3a Status: Chronic Assessment and Plan: creatinine was running around 1.4 - 1.5mg/dl in November 2021 presumably secondary to hypertension and vascular disease as well as CHF there may be a component of CKD progression on top of ARMIN/ARF from last hospital admission (3) Acute and chronic respiratory failure with hypoxia: Code(s): J96.21 - Acute and chronic respiratory failure with hypoxia Status: Acute Assessment and Plan: suspect due to combination of pneumonia and CHF admission CXR noted BIPAP support initiated diuresis as tolerated antibiotics -- follow culture data follow ABGs remains at risk for intubation and mechanical ventilation (4) Pneumonia: Code(s): J18.9 - Pneumonia, unspecified organism Status: Acute Assessment and Plan: as suggested by admission CXR on antibiotic therapy follow culture data (5) Acute exacerbation of CHF (congestive heart failure): Qualifiers: Heart failure type: diastolic Qualified Code(s): I50.33 - Acute on chronic diastolic (congestive) heart failure Code(s): I50.9 - Heart failure, unspecified Status: Acute Assessment and Plan: evidence of pulmonary edema on admission CXR elevated proBNP as well continue IV diuretics as long as she is responsive previous echo noted (on 04/17/23): LV dilatation with severe global systolic dysfunction, EF 30%, grade 1 diastolic dysfunction, no obvious valvular dysfunction although the quality of exam was very challenging, RVSP 21 mmHg. was on medical management with carvedilol, Lasix, isosorbide mononitrate, Entresto, spironolactone resume this when able (6) Hypertensive urgency: Code(s): I16.0 - Hypertensive urgency Status: Acute Assessment and Plan: systolic BP > 200s on admission going to be started on nitroglycerin gtt resume home/oral medications when able follow trend of hemodynamics (7) Elevated troponin: Code(s): R77.8 - Other specified abnormalities of plasma proteins Status: Acute Assessment and Plan: suspect due to demand ischemia from acute respiratory failure follow trend of troponins Cardiology consulted Discussed case with Dr. Mai. I will continue follow the patient with you while she remains hospitalized and make further recommendations as deemed necessary. Thank you for allowing me participate in care of this patient. History of Present Illness Reason for Consult Consult date: 05/18/23 Reason for consult: acute renal failure (on chronic kidney disease) Chief Complaint Chief complaint: respiratory distress,chf History of Present Illness Narrative: The patient is a 52-year-old female with a past medical history as outlined below who presented to [facility] Emergency room yesterday with complaints of shortness of breat
--- NOTE | 2023-05-17 14:00 | P.CONNP_ITS ---
Assessment and Plan Assessment and plan (1) ARMIN (acute kidney injury): Code(s): N17.9 - Acute kidney failure, unspecified Status: Acute Assessment and Plan: * noted on previous hospitalization here at [place] in April 2022 * discharged with a creatinine of 3.7mg/dl * suspected etiology was ATN due to infection (COVID + pneumonia) and CHF exacerbation * evaluation during April 2023 admission noted: * renal ultrasound with medical renal disease (incomplete visualization of saul kidney) * CPK okay * UA with blood and protein along with?granular casts * urine electrolytes never done * no peripheral eosinophilia or rash * serologies (GISELA, ANCA, dsDNA-Ab, antiGBM-ab, complements, and serm/urine immunofixation) were all negative * it would seems that her renal function has still not recovered based on a dmission labs or perhaps she has a new baseline creatinine * she remains at 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/dialysis * follow trend of repeat labs and UOP (2) Stage 3a chronic kidney disease: Code(s): N18.31 - Chronic kidney disease, stage 3a Status: Chronic Assessment and Plan: * creatinine was running around 1.4 - 1.5mg/dl in November 2021 * presumably secondary to hypertension and vascular disease as well as CHF * there may be a component of CKD progression on top of ARMIN/ARF from last hospital admission (3) Acute and chronic respiratory failure with hypoxia: Code(s): J96.21 - Acute and chronic respiratory failure with hypoxia Status: Acute Assessment and Plan: * suspect due to combination of pneumonia and CHF * admission CXR noted * BIPAP support initiated * diuresis as tolerated * antibiotics -- follow culture data * follow ABGs * remains at risk for intubation and mechanical ventilation (4) Pneumonia: Code(s): J18.9 - Pneumonia, unspecified organism Status: Acute Assessment and Plan: * as suggested by admission CXR * on antibiotic therapy * follow culture data (5) Acute exacerbation of CHF (congestive heart failure): Qualifiers: Heart failure type: diastolic Qualified Code(s): I50.33 - Acute on chronic diastolic (congestive) heart failure Code(s): I50.9 - Heart failure, unspecified Status: Acute Assessment and Plan: * evidence of pulmonary edema on admission CXR * elevated proBNP as well * continue IV diuretics as long as she is responsive * previous echo noted (on 04/17/23): * LV dilatation with severe global systolic dysfunction, EF 30%, grade 1 diastolic dysfunction, no obvious valvular dysfunction although the quality of exam was very challenging, RVSP 21 mmHg. * was on medical management with carvedilol, Lasix, isosorbide mononitrate, Entresto, spironolactone * resume this when able (6) Hypertensive urgency: Code(s): I16.0 - Hypertensive urgency Status: Acute Assessment and Plan: * systolic BP > 200s on admission * going to be started on nitroglycerin gtt * resume home/oral medications when able * follow trend of hemodynamics (7) Elevated troponin: Code(s): R77.8 - Other specified abnormalities of plasma proteins Status: Acute Assessment and Plan: * suspect due to demand ischemia from acute respiratory failure * follow trend of troponins * Cardiology consulted Discussed case with Dr. Mai. I will continue follow the patient with you while she remains hospitalized and make further recommendations as deemed necessary. Thank you for edytain
[2023-05-17 14:16] LABS: Appearance Urine Clear (Clear); Bacteria Urine Rare /hpf; Bilirubin Urine Negative (Negative); Blood Urine Negative (Negative); Color Urine Yellow (Yellow); Glucose Urine UA Negative (Negative); Ketones Urine Negative (Negative); Leukocyte Esterase Ur Trace LEU/UL (Negative); Nitrate Urine Negative (Negative); Non Pathogenic Casts 0-2; Protein Urine 2+ mg/dL (Negative); RBC Urine 0-2 /hpf (0-2); Specific Grav Ur 1.007 (1.001-1.035); Squamous Epithelial Cell Urine None seen /hpf (Few); Urobilinogen Urine 0.2 mg/dL (<2.0); WBC Urine 0-5 /hpf
[2023-05-17] MEDS: PANTOPRAZOLE SODIUM IV 40 MG VIAL IV PUSH (14:17)
[2023-05-17] MEDS: NITROGLYCERIN/D5W 200 MCG/ML 50 MG/250 ML BTL IV CONT (14:18)
[2023-05-17 14:28] LABS: Add Urine Microscopic? YES
[2023-05-17 14:29] LABS: Troponin I 0.822 ng/mL (0.000-0.034)
[2023-05-17] MEDS: cloNIDine 0.2 MG/24 HR PATCH 1 PATCH TRANSDERM (14:55)
--- NOTE | 2023-05-17 14:57 | PM.CNPUL ---
Assessment and Plan Assessment and plan (1) Acute and chronic respiratory failure with hypoxia: Code(s): J96.21 - Acute and chronic respiratory failure with hypoxia Status: Acute Assessment and Plan: This 52-year-old female with a history of morbid obesity, documented history of congestive heart failure with low EF in the range of 25-30% during recent hospitalization, presented with 1 day history of increasing shortness of breath. On initial chest x-ray there is evidence of bilateral infiltrates with pulmonary edema distribution and question of left lower lobe infiltrate which could be due to pneumonia. On physical exam she has crackles and no evidence of wheezing, patient is currently on BiPAP support with the last blood gases showing correction of hypercapnic respiratory acidosis. I suspect the patient has hypoxemic respiratory failure related to congestive heart failure rather than COPD exacerbation. As stated there has been no pulmonary function testing available, and has been only a short-acting bronchodilators for airway obstruction. Plan: I agree with current management that includes BiPAP support, short-acting bronchodilators and antibiotics to cover possible healthcare associated pneumonia. I would continue with current antibiotic regimen. Ordered MRSA screen. (2) Pulmonary infiltrates: Code(s): R91.8 - Other nonspecific abnormal finding of lung field Status: Acute (3) Congestive heart failure: Code(s): I50.9 - Heart failure, unspecified Status: Acute (4) Hypertension: Code(s): I10 - Essential (primary) hypertension Status: Acute (5) BMI 50.0-59.9, adult: Code(s): Z68.43 - Body mass index [BMI] 50.0-59.9, adult Status: Acute (6) Obstructive apnea: Code(s): G47.33 - Obstructive sleep apnea (adult) (pediatric) Status: Acute History of Present Illness History of Present Illness Consult date: 05/17/23 Chief complaint: respiratory distress,chf Narrative: The patient, a 52-year-old female presented to the Emergency Department (ED) on 05/17/2023. The patient carries a diagnosis of COPD, morbid obesity stage IIIB chronic kidney disease, history of congestive heart failure with EF in the range of 25-30%, hypertension hyperlipidemia anemia history of seizures and intellectual disability. The patient was brought into the emergency room with a 1 day history of progressively increasing shortness of breath. I was asked to see the patient regarding possible COPD exacerbation. The patient is currently in intensive care unit receiving BiPAP support, 14/7 respiratory rate 18 and FiO2 of 40%. Patient appears drowsy opening eyes to verbal commands. Upon evaluation in the emergency room she was found to have a pH of 7.34, pCO2 39.3 and PO2 of 450 while on BiPAP support. Pro type not clear it peptide was significantly elevated at 17 1000. Test for influenza, RSV and COVID 2 PCR returned negative. Patient was treated with IV for resting might and IV Solu-Medrol. Approximately 1 month ago the patient was admitted to the hospital with high low oxygen. During that hospitalization she got intubated and was diagnosed with a congestive heart failure an EF in the range of 25-30%. Patient carries a diagnosis of COPD but no previous pulmonary function testing is available. It is unclear whether the airway dysfunction is related to asthma or COPD. She had been on on just short-acting bronchodilators for her airway obstruction. Review of Systems Review of Systems: All systems reviewed & are unremarkable except as noted in HPI and below (HPI and below) PMFSH Past Medical History Medical History Asthma-COPD overlap syndrome Cerebrovascular accident Chronic kidney disease Congestive heart failure Echocardiogram in October 2021 showed left ventricular hypertrophy with moderate left ventricular dilation and significant sys
[2023-05-17 15:43] LABS: MRSA (PCR) NOT DETECTED (NOT DETECTE)
[2023-05-17] MEDS: IPRATROPIUM BR 0.02% INH SOLN 0.5 MG/2.5 ML VIAL INHALATION ×2 (16:43→21:01)
[2023-05-17] MEDS: ALBUTEROL SULFATE NEB 2.5 MG/3 ML INH INHALATION ×2 (16:43→21:01)
[2023-05-17] MEDS: PHENYTOIN SODIUM INJ 100 MG/2 ML VIAL (*BKC) 200 MG IV PUSH (21:13)
[2023-05-17] MEDS: HEPARIN SODIUM 5,000 UNITS/ML VIAL 5000 UNITS SUB-Q (21:13)
[2023-05-18] VITALS (71 sets, daily range): BP systolic 120–197; BP diastolic 57–98; PULSE 85–122; RESP 12–24; TEMP 36.6–37.8; O2SAT 97–100
[2023-05-18] MEDS: IPRATROPIUM BR 0.02% INH SOLN 0.5 MG/2.5 ML VIAL INHALATION ×7 (00:19→23:36)
[2023-05-18] MEDS: ALBUTEROL SULFATE NEB 2.5 MG/3 ML INH INHALATION ×7 (00:19→23:35)
[2023-05-18] MEDS: NITROGLYCERIN/D5W 200 MCG/ML 50 MG/250 ML BTL 34.5 MG IV CONT (00:26)
[2023-05-18 05:04] LABS: Basophils Absolute Auto 0.1 K/mm3 (0.0-0.1); Basophils Percent Auto 0.6 % (0.2-1.2); Eosinophils Absolute Auto 0.2 K/mm3 (0-0.3); Eosinophils Percent Auto 1.7 % (0-4.4); Immature Granulocyte Absolute 0.23 K/mm3 (0.00-0.031); Immature Granulocyte Percent A 2.2 % (0-0.5); Lymphocytes Absolute Auto 2.05 K/mm3 (0.9-3.2); Mean Corpuscular HGB Conc 29.6 g/dl (32-36); Mean Corpuscular Hemoglobin 29.1 pg (26-34); Mean Corpuscular Volume 98.3 fl (80-100); Mean Platelet Volume 10.7 fl (7.4-10.4); Monocytes Absolute Auto 0.6 K/mm3 (0.1-0.6); Monocytes Percent Auto 5.9 % (2.6-8.5); Neutrophils Absolute Auto 7.2 K/mm3 (1.3-6.7); Neutrophils Percent Auto 69.6 % (45.5-73.1); Platelet Count Result 167 k/mm3 (150-375); Red Blood Count 2.34 M/mm3 (4.2-5.4); Red Cell Distribution Width 15.6 % (11.5-14.5); White Blood Count 10.3 K/mm3 (4.5-10.0)
[2023-05-18 05:17] LABS: Lactic Acid Reflex 0.9 mmol/L (0.7-2.0)
[2023-05-18 05:20] LABS: Alanine Aminotransferase 19 U/L (6-35); Albumin Level 3.1 g/dL (3.5-5.1); Alkaline Phosphatase 98 U/L (38-126); Anion Gap 7 mmol/L (8-16); Aspartate Amino Transferase 22 U/L (14-36); Bilirubin,Total 0.3 mg/dL (0.2-1.3); Blood Urea Nitrogen 53 mg/dL (7-17); Calcium 8.5 mg/dL (8.4-10.2); Carbon Dioxide 23 mmol/L (22-30); Chloride 113 mmol/L (98-107); Estimated CRCL calculation 26 ml/min; Estimated Glomerular Filt Rate 16; Glucose 87 mg/dL (65-110); Magnesium 1.7 mg/dL (1.6-2.3); Phosphorus 5.1 mg/dL (2.5-4.5); Potassium 4.2 mmol/L (3.4-5.0); Sodium 143 mmol/L (137-145)
[2023-05-18 05:27] LABS: Hemoglobin 6.8 g/dL (12.0-15.0)
[2023-05-18 05:28] LABS: Anisocytosis 1+ (NORMAL); Hypochromasia 1+ (NORMAL); Macrocytosis 1+ (NORMAL); Platelet Estimate Adequate (Adequate); Schistocytes None Seen (NORMAL)
[2023-05-18 05:50] LABS: Alveolar/Arterial O2 Gradient 57.4 mmHg; Base Excess ABG -3.6 mEq/l (+/-2.0); Carboxyhemoglobin 0.3 % THb (0-2.0); Fractional Inspired Oxygen 30 %; HCO3 ABG 21.6 mEq/l (22.0-26.0); Methemoglobin ABG 0.4 %THb (0-1.5); Oxygen Content ABG 10.2 %vol (16.0-22.0); Oxygen Saturation ABG 97.9 % (95.0-100.0); Oxyhemoglobin 96.1 % THb (90.0-100.0); PCO2 ABG 39.3 mmHg (35.0-45.0); PO2 ABG 110.3 mmHg (80.0-100.0); PO2 FiO2 Ratio Arterial Blood 3.68 %; Reduced Hemoglobin 3.2 %THb (0-5.0); pH ABG 7.358 (7.350-7.450)
[2023-05-18 05:51] LABS: Device NON-INVASIVE VENT; Modified Allen's Test Pass; Non-Invasive Expiratory Pressure 7 CMH2O; Non-Invasive Inspiratory Pressure 14 CMH2O; Non-Invasive Vent Rate 18 /MIN; Site Drawn RIGHT RADIAL; Total Hemoglobin 7.4 g/dL (12.0-18.0)
[2023-05-18] MEDS: BUDESONIDE RESPULE NEB 0.5 MG/2 ML AMP INHALATION ×2 (07:40→20:39)
--- NOTE | 2023-05-18 08:04 | WPDINTPN ---
Progress Note: A&P Assessment and Plan (1) Acute and chronic respiratory failure with hypoxia: Code(s): J96.21 - Acute and chronic respiratory failure with hypoxia Status: Acute Assessment and Plan: Patient presented with shortness of breath from a [place] [facility] along with tachycardia and tachypnea and hypertension. Likely related to CHF, pulmonary edema -chest x-ray with small: Stable bibasilar pulmonary disease, worst at the left lung base. 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 [id number] on admission -patient received Lasix 80 mg IV x1 in the ER, -responding well to diuresis -continue Lasix b.i.d. 04/17/2023 Echocardiogram: LV dilatation with severe global systolic dysfunction, EF 30%, grade 1 diastolic dysfunction, no obvious valvular dysfunction although the quality of exam was very challenging, RVSP 21 mmHg. Patient is on multiple medications at home her heart failure including carvedilol, Lasix, isosorbide mononitrate, Entresto, spironolactone patient currently NPO due to being on BiPAP, tachypneic and in respiratory distress, will restart once able to take p.o. (4) CKD (chronic kidney disease) stage 3, GFR 30-59 ml/min: Qualifiers: Chronic kidney disease stage 3 subtype: stage 3a (GFR 45-59) Qualified Code(s): N18.31 - Chronic kidney disease, stage 3a Code(s): N18.30 - Chronic kidney disease, stage 3 unspecified Status: Acute Assessment and Plan: Patient has history of chronic kidney disease stage 3 -was recently in the hospital in April 2023 -will discuss with Nephrology -continue diuresis -monitor urine output, renal function electrolytes (5) Hypertensive urgency: Code(s): I16.0 - Hypertensive urgency Status: Acute Assessment and Plan: Patient with blood pressures of 211/121, patient on multiple medications at home including labetalol, carvedilol, clonidine, furosemide, spironolactone, Imdur, nifedipine -continue scheduled IV metoprolol -continue p.r.n. hydralazine IV -continue nitroglycerin infusion (6) Elevated troponin: Code(s): R77.8 - Other specified abnormalities of plasma proteins Status: Acute Assessment and Plan: troponin was positive at 1.030, likely related to ischemic demand secondary to respiratory failure -repeat troponin was 0.822 -cardiology has been consult (7) Seizure: Code(s): R56.9 - Unspecified convulsions Status: Acute Assessment and Plan: [facility] [place] [facility] - phenytoin 200 mg IV q.12 hours (discussed with pharmacy) (8) Anemia: Code(s): D64.9 - Anemia, unspecified Status: Acute Assessment and Plan: 05/18Patient dropped her hemoglobin 6.8 this morning will transfuse 1 unit of packed RBCs -heparin subQ was discontinued -will obtain iron panel, folic acid and vitamin B12 -no evidence of bleeding. -patient was anemic in April 2023 and was transfused P
[2023-05-18] MEDS: SODIUM CHLORIDE 0.9% IV 250 ML 30 ML IV CONT (09:09)
[2023-05-18] MEDS: NITROGLYCERIN/D5W 200 MCG/ML 50 MG/250 ML BTL 31.5 MG IV CONT (09:11)
[2023-05-18] MEDS: METOPROLOL TARTRATE INJ 5 MG/5 ML VIAL IV PUSH ×3 (09:13→20:25)
[2023-05-18] MEDS: FUROSEMIDE INJ 40 MG/4 ML VIAL IV PUSH ×2 (09:13→17:23)
[2023-05-18] MEDS: PANTOPRAZOLE SODIUM IV 40 MG VIAL IV PUSH ×2 (09:13→20:25)
[2023-05-18] MEDS: PHENYTOIN SODIUM INJ 100 MG/2 ML VIAL (*BKC) 200 MG IV PUSH ×2 (09:14→20:26)
[2023-05-18] MEDS: cefTRIAXone 2 GM/NS 100 ML 2 GM/100 ML BAG IVPB (09:14)
--- NOTE | 2023-05-18 11:26 | PM.CNCAR ---
Assessment and Plan Assessment and plan (1) Acute exacerbation of CHF (congestive heart failure): Qualifiers: Heart failure type: diastolic Qualified Code(s): I50.33 - Acute on chronic diastolic (congestive) heart failure Code(s): I50.9 - Heart failure, unspecified Status: Acute Assessment and Plan: Has HFrEF. Echocardiogram 10/2021 showed LVEF 25-30%. Most recent echocardiogram 04/2023 shows LVEF 25-30%, grade 1 diastolic dysfunction. Has not had ischemic evaluation as her massive obesity has precluded reasonable attempt at angiography, along with significant renal dysfunction. Agree with IV Lasix 40mg BID. Monitor strict I/Os. Currently NPO as she is on BIPAP, therefore, cannot receive oral meds. Once she can start taking oral medications again, resume Coreg, Entresto, Aldactone. Needs close outpatient Cardiology follow up. (2) Acute and chronic respiratory failure with hypoxia: Code(s): J96.21 - Acute and chronic respiratory failure with hypoxia Status: Acute Assessment and Plan: On BIPAP. Treatment of CHF as noted above with IV Lasix. (3) Hypertensive urgency: Code(s): I16.0 - Hypertensive urgency Status: Acute Assessment and Plan: Continue NTG drip for now. Once she can start taking oral medications again, resume Coreg, Entresto, Aldactone. She is on Clonidine at home, which is not an ideal medication for long-term management for hypertension. (4) Non-ST elevation (NSTEMI) myocardial infarction: Code(s): I21.4 - Non-ST elevation (NSTEMI) myocardial infarction Status: Acute Assessment and Plan: Troponin of 1.030, 0.822. Likely due to demand ischemia. (5) CKD (chronic kidney disease) stage 3, GFR 30-59 ml/min: Qualifiers: Chronic kidney disease stage 3 subtype: stage 3a (GFR 45-59) Qualified Code(s): N18.31 - Chronic kidney disease, stage 3a Code(s): N18.30 - Chronic kidney disease, stage 3 unspecified Status: Acute Assessment and Plan: Nephrology has been consulted. (6) Anemia: Code(s): D64.9 - Anemia, unspecified Status: Acute Assessment and Plan: Hgb 6.8 this morning, getting blood transfusion. History of Present Illness History of Present Illness Consult date/time: 05/18/23 11:26 Requesting physician: Freddie Mai MD Consult reason: hypertension and congestive heart failure Reason For Visit: respiratory distress,chf Narrative: We are consulted for CHF exacerbation, hypertensive urgency. This is a 52 year old female with heart failure with reduced ejection fraction, morbid obesity, COPD on home oxygen, CKD, GERD, hypertension, hyperlipidemia, anemia, history of seizures, intellectual disability who presented [facility] ED [facility]. Admitted to ICU for acute on chronic hypoxic respiratory failure requiring BIPAP. Noted to be hypertensive on arrival with BP of 211/121mmHg. Has been started on NTG drip. Started on IV Lasix for volume overload. Patient states she is feeling better this morning. Remains on NTG drip. Review of Systems Review of Systems: All systems reviewed & are unremarkable except as noted in HPI and below (HPI) PMFSH Past Medical History Medical History Asthma-COPD overlap syndrome Cerebrovascular accident Chronic kidney disease Congestive heart failure Echocardiogram in October 2021 showed left ventricular hypertrophy with moderate left ventricular dilation and significant systolic dysfunction with an EF estimated 25 to 30%, grade 1 diastolic dysfunction, and mild right ventricular enlargement with biatrial dilation. Gastroesophageal reflux disease Hyperlipidemia Hypertension Intellectual disability Iron deficiency anemia Seizure Vitamin D deficiency Surgical History Surgical History History of right above knee ampu
[2023-05-18] MEDS: AZITHROMYCIN 500 MG/NS 250 ML 500 MG/250 ML BAG 250 MG IVPB (11:59)
--- NOTE | 2023-05-18 12:40 | PM.PNNEP ---
Progress Note: A&P Assessment and Plan (1) ARMIN (acute kidney injury): Code(s): N17.9 - Acute kidney failure, unspecified Status: Acute Assessment and Plan: noted on previous hospitalization here at [facility] [place] in April 2023 discharged with a creatinine of 3.7mg/dl suspected etiology was ATN due to infection (COVID + pneumonia) and CHF exacerbation evaluation during April 2023 admission noted: renal ultrasound with medical renal disease (incomplete visualization of saul kidney) CPK okay UA with blood and protein along with?granular casts urine electrolytes never done no peripheral eosinophilia or rash serologies (GISELA, ANCA, dsDNA-Ab, antiGBM-ab, complements, and serm/urine immunofixation) were all negative it would seems that her renal function has still not recovered based on admission labs or perhaps she has a new baseline creatinine 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 follow trend of repeat labs and UOP (2) Stage 3a chronic kidney disease: Code(s): N18.31 - Chronic kidney disease, stage 3a Status: Chronic Assessment and Plan: creatinine was running around 1.4 - 1.5mg/dl in November 2021 presumably secondary to hypertension and vascular disease as well as CHF there may be a component of CKD progression on top of ARMIN/ARF from last hospital admission (3) Acute and chronic respiratory failure with hypoxia: Code(s): J96.21 - Acute and chronic respiratory failure with hypoxia Status: Acute Assessment and Plan: mild improvement noted suspect due to combination of pneumonia and CHF admission CXR noted BIPAP support initiated diuresis as tolerated antibiotics -- follow culture data follow ABGs Pulmonary following remains at risk for intubation and mechanical ventilation (4) Anemia: Code(s): D64.9 - Anemia, unspecified Status: Acute Assessment and Plan: as noted by labs (on 05/18) PRBC transfusion per protocol follow-up on anemia studies consider empiric Epogen given ARMIN/CKD follow trend of H/H (5) Pneumonia: Code(s): J18.9 - Pneumonia, unspecified organism Status: Acute Assessment and Plan: as suggested by admission CXR on antibiotic therapy follow culture data (6) Acute exacerbation of CHF (congestive heart failure): Qualifiers: Heart failure type: diastolic Qualified Code(s): I50.33 - Acute on chronic diastolic (congestive) heart failure Code(s): I50.9 - Heart failure, unspecified Status: Acute Assessment and Plan: evidence of pulmonary edema on admission CXR elevated proBNP as well continue IV diuretics as long as she is responsive previous echo noted (on 04/17/23): LV dilatation with severe global systolic dysfunction, EF 30%, grade 1 diastolic dysfunction, no obvious valvular dysfunction although the quality of exam was very challenging, RVSP 21 mmHg. was on medical management with carvedilol, Lasix, isosorbide mononitrate, Entresto, spironolactone resume this when able (7) Hypertensive urgency: Code(s): I16.0 - Hypertensive urgency Status: Acute Assessment and Plan: systolic BP > 200s on admission on nitroglycerin gtt resume home/oral medications when able follow trend of hemodynamics (8) Elevated troponin: Code(s): R77.8 - Other specified abnormalities of plasma proteins Status: Acute Assessment and Plan: suspect due to demand ischemia from acute respiratory failure follow trend of troponins Cardiology following Discussed case with Dr. Mai. Will continue to follow. Subjective Date/time seen: 05/18/23 12:40 Interval history: Follow-up for acute kidney injury/acute renal failure on chronic kidney disease versus chronic kidney disease. She remains on BiPAP support along with nitroglycerin gtt; BP is better but remains elevated; low H/H noted this AM with PRBC transfusion
--- NOTE | 2023-05-18 12:40 | P.PNNP_ITS ---
Progress Note: A&P Assessment and Plan (1) ARMIN (acute kidney injury): Code(s): N17.9 - Acute kidney failure, unspecified Status: Acute Assessment and Plan: * noted on previous hospitalization here at [facility] in April 2023 * discharged with a creatinine of 3.7mg/dl * suspected etiology was ATN due to infection (COVID + pneumonia) and CHF exacerbation * evaluation during April 2023 admission noted: * renal ultrasound with medical renal disease (incomplete visualization of saul kidney) * CPK okay * UA with blood and protein along with?granular casts * urine electrolytes never done * no peripheral eosinophilia or rash * serologies (GISELA, ANCA, dsDNA-Ab, antiGBM-ab, complements, and serm/urine immunofixation) were all negative * it would seems that her renal function has still not recovered based on [facility] labs or perhaps she has a new baseline creatinine * 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 * follow trend of repeat labs and UOP (2) Stage 3a chronic kidney disease: Code(s): N18.31 - Chronic kidney disease, stage 3a Status: Chronic Assessment and Plan: * creatinine was running around 1.4 - 1.5mg/dl in November 2021 * presumably secondary to hypertension and vascular disease as well as CHF * there may be a component of CKD progression on top of ARMIN/ARF from last hospital admission (3) Acute and chronic respiratory failure with hypoxia: Code(s): J96.21 - Acute and chronic respiratory failure with hypoxia Status: Acute Assessment and Plan: * mild improvement noted * suspect due to combination of pneumonia and CHF * admission CXR noted * BIPAP support initiated * diuresis as tolerated * antibiotics -- follow culture data * follow ABGs * Pulmonary following * remains at risk for intubation and mechanical ventilation (4) Anemia: Code(s): D64.9 - Anemia, unspecified Status: Acute Assessment and Plan: * as noted by labs (on 05/18) * PRBC transfusion per protocol * follow-up on anemia studies * consider empiric Epogen given ARMIN/CKD * follow trend of H/H (5) Pneumonia: Code(s): J18.9 - Pneumonia, unspecified organism Status: Acute Assessment and Plan: * as suggested by admission CXR * on antibiotic therapy * follow culture data (6) Acute exacerbation of CHF (congestive heart failure): Qualifiers: Heart failure type: diastolic Qualified Code(s): I50.33 - Acute on roller skater elmo diastolic (congestive) heart failure Code(s): I50.9 - Heart failure, unspecified Status: Acute Assessment and Plan: * evidence of pulmonary edema on admission CXR * elevated proBNP as well * continue IV diuretics as long as she is responsive * previous echo noted (on 04/17/23): * LV dilatation with severe global systolic dysfunction, EF 30%, grade 1 diastolic dysfunction, no obvious valvular dysfunction although the quality of exam was very challenging, RVSP 21 mmHg. * was on medical management with carvedilol, Lasix, isosorbide mononitrate, Entresto, spironolactone * resume this when able (7) Hypertensive urgency: Code(s): I16.0 - Hypertensive urgency Status: Acute Assessment and Plan: * systolic BP > 200s on admission * on nitroglycerin gtt * resume home/oral medications when able * follow trend of hemodynamics (8) Elevated troponin: Code(s): R77.8 - Other specified abnormalities of plasma proteins Status: Acute Assessment and Plan:
--- NOTE | 2023-05-18 12:45 | PM.PNPUL ---
Progress Note: A&P Assessment and Plan (1) Acute exacerbation of CHF (congestive heart failure): Qualifiers: Heart failure type: diastolic Qualified Code(s): I50.33 - Acute on chronic diastolic (congestive) heart failure Code(s): I50.9 - Heart failure, unspecified Status: Acute (2) Pneumonia: Code(s): J18.9 - Pneumonia, unspecified organism Status: Acute (3) Acute and chronic respiratory failure with hypoxia: Code(s): J96.21 - Acute and chronic respiratory failure with hypoxia Status: Acute Assessment and Plan: This 52-year-old female with a history of morbid obesity, documented history of congestive heart failure with low EF in the range of 25-30% during recent hospitalization, presented with 1 day history of increasing shortness of breath. On initial chest x-ray there was evidence of bilateral infiltrates with pulmonary edema distribution and question of left lower lobe infiltrate which could be due to pneumonia. On physical exam she had crackles and no evidence of wheezing. Patient has been on BiPAP support since admission to the intensive care unit. There seems to be improvement of her respiratory status, with blood gases showing lower FiO2 at 30%, adequate oxygenation and lower PCO2. Also the total minute ventilation as measured by BiPAP is less today. Chest x-ray showed more or less unchanged infiltrate although the possibility exists that these infiltrates are vegetable sorter on today's CXR. Patient has been on antibiotics for pneumonia. Plan: Agree with antibiotic coverage. Continue with BiPAP support, monitor arterial blood gases. Await MRSA screen. (4) Pulmonary infiltrates: Code(s): R91.8 - Other nonspecific abnormal finding of lung field Status: Acute Subjective Date/time seen: 05/18/23 12:45 Interval history: Patient remains on BiPAP support. FiO2 significantly lower since yesterday. Patient appears more awake cooperative while on BiPAP support. Has been on antibiotics for possible lower respiratory tract infection. Has been hemodynamically stable. Creatinine elevated. Better gas exchange while on BiPAP. Review of Systems Review of Systems: All systems reviewed & are unremarkable except as noted in HPI and below (HPI and below) Exam Narrative: GENERAL APPEARANCE: Well developed, well nourished, morbidly obese currently receiving BiPAP support to the intensive care unit, more cooperative today SKIN: Inspection of the skin reveals no rashes, ulcerations or petechiae. HEENT: Sclerae anicteric and conjunctivae pink and moist. Extraocular movements were intact and pupils were equal, round. NECK: Supple. There was no thyroid enlargement, and no tenderness, or masses were felt. LUNGS: Crackles at left lateral chest, upper chest anteriorly with clear sounds no evidence of wheezing CARDIAC: There was a regular rate and rhythm without any murmurs, gallops, rubs. ABDOMEN: Soft and nontender. EXTREMITIES: No cyanosis, clubbing or edema. Above knee amputation right lower extremity NEUROLOGIC: Patient alert, answering questions appropriately. Moving all extremities. Objective Data Vital Signs Vital Signs: Vital Signs - 24 hr 05/17/23 13:14 05/17/23 13:03 05/17/23 13:40 Temperature Pulse Rate 109 H 106 H 103 H Respiratory Rate 28 H 26 H Blood Pressure Pulse Oximetry 99 Oxygen Delivery BiPAP Oxygen Flow Rate Fraction of Inspired Oxygen 05/17/23 13:40 05/17/23 14:18 05/17/23 13:51 Temperature Pulse Rate 103 H 111 H 106 H Respiratory Rate 26 H Blood Pressure 184/103 H Pulse Oximetry 99 Oxygen Delivery BiPAP Oxygen Flow Rate Fraction of Inspired Oxygen 05/17/23 14:31 05/17/23 14:50 05/17/23 15:00 Temperature Pulse Rate 105 H 103 H 107 H Respiratory Rate Blood Pressure 181/89 H 186/92 H 188/95 H Pulse Oximetry Oxygen Delivery Oxygen Flow Rate Fraction of Inspired Oxygen
[2023-05-18 13:58] LABS: IFOB Positive Control Positive; Immunochemical Fecal Occult Bl Negative (N)
--- NOTE | 2023-05-18 14:32 | PM.IMHP ---
H&P: HPI History of Present Illness Date/Time: 05/18/23 14:32 Chief Complaint: SOB Narrative: 52 y/o F presented here with respiratory distress with PMH of asthma/COPD, CHF, seizures, GERD, HLD, HTN, CAROLYNN, and vitamin D deficiency. Pt is a patient of [facility] Pt is no Bipap in ICU, poor historian states she feels tired Pt was severely SOB on admission and BP were high on admission Chest x-ray:?Extensive hazy pulmonary disease with more confluent consolidation left lung base. Correlate for advanced pulmonary edema versus infection pro BNP is high Pt admitted for CHF exacerbation and Pneumonia, HTN urgency, NSTEMI, Acute on chronic kidney disease and severe anemia Hb found to be low pt receiving blood Pt seen by ICU MD, cardiology MD, pulmology MD and nephrology MD Review of Systems Review of Systems: Severe SOB and tiredness on admission all other systems are reviewed and negative apart from those in HPI PMFSH Past Medical History Medical History Asthma-COPD overlap syndrome Cerebrovascular accident Chronic kidney disease Congestive heart failure Echocardiogram in October 2021 showed left ventricular hypertrophy with moderate left ventricular dilation and significant systolic dysfunction with an EF estimated 25 to 30%, grade 1 diastolic dysfunction, and mild right ventricular enlargement with biatrial dilation. Gastroesophageal reflux disease Hyperlipidemia Hypertension Intellectual disability Iron deficiency anemia Seizure Vitamin D deficiency Surgical History Surgical History History of right above knee amputation Family History Family History Father Congestive heart failure Hypertension Mother Congestive heart failure Hypertension Social History Social History Social History: Surrogate decision maker: Laxmi Marrero, aunt. Code status: Full code. Smoking packs per day: 1 Smoking cigarettes per day: 20.0 Years smoked: 20 Smoking pack-years: 20.00 Smoking status: Unknown if ever smoked Alcohol intake: unknown Substance use: unknown Substance use type: does not use Do You Feel Safe in your Home?: Yes Lack of Transportation: No Lack of Food: Never True Current Housing: I Have Housing Concerned About Future Housing: No Difficulty Paying Gas/Electric Bills: No Difficulty Paying for Meds: No Currently Unemployed: No Education: High School Diploma/GED Difficulty w/ Childcare or Family Care: No Additional living arrangements comments: Resident at [facility] [place]. Additional occupation/education comments: Disabled. Spiritual care concerns: No Meds Home Medications and Allergies Home Medications Medication Instructions Recorded Confirmed Type acetaminophen 325 mg tablet 650 mg PO Q6H PRN Pain (Scale 08/26/21 05/17/23 History (Tylenol) Score 1-3) aspirin 81 mg chewable tablet 81 mg PO DAILY 08/26/21 05/17/23 History (Aspirin Childrens) atorvastatin 80 mg tablet (Lipitor) 80 mg PO HS 08/26/21 05/17/23 History benzonatate 200 mg capsule 200 mg PO Q8H PRN Cough 08/26/21 05/17/23 History calcium carb-vit D3-minerals 600 2 tablet PO DAILY 08/26/21 05/17/23 History mg calcium-400 unit tablet clonidine HCl 0.2 mg tablet 0.2 mg PO TID 08/26/21 05/17/23 History ergocalciferol (vitamin D2) 1,250 50,000 unit PO WEEKLY 08/26/21 05/17/23 History mcg (50,000 unit) capsule (Vitamin D2) ferrous sulfate 325 mg (65 mg 325 mg PO BID 08/26/21 05/17/23 History iron) tablet ipratropium 0.5 mg-albuterol 3 mg 0.5 mg inhalation BID PRN 08/26/21 05/17/23 History (2.5 mg base)/3 mL nebulization Shortness Of Breath Or Wheezing soln isosorbide mononitrate 30 mg 30 mg PO DAILY
[2023-05-18] MEDS: NITROGLYCERIN/D5W 200 MCG/ML 50 MG/250 ML BTL 39 MG IV CONT (15:15)
[2023-05-18] MEDS: hydrALAZINE HCL 20 MG/ML VIAL IV PUSH ×2 (17:23→23:13)
--- NOTE | 2023-05-18 22:00 | PC.NURSE ---
Pastor from [facility] stil in place and irritating to patient. Switched out for temp Pastor 16g.
[2023-05-18] MEDS: NITROGLYCERIN/D5W 200 MCG/ML 50 MG/250 ML BTL 43.5 MG IV CONT (23:10)
[2023-05-19] VITALS (45 sets, daily range): BP systolic 132–189; BP diastolic 69–88; PULSE 80–901; RESP 15–26; TEMP 37.2–37.7; O2SAT 94–100
[2023-05-19] MEDS: ENALAPRILAT 1.25 MG/ML VIAL IV PUSH (01:13)
[2023-05-19] MEDS: METOPROLOL TARTRATE INJ 5 MG/5 ML VIAL IV PUSH (02:36)
[2023-05-19] MEDS: VANCOMYCIN 1,500 MG/NS 500 ML 1,500 MG/500 ML BAG 250 MG IVPB (02:36)
[2023-05-19 04:22] LABS: Hematocrit 25.7 % (37.0-47.0); Hemoglobin 7.6 g/dL (12.0-15.0); Mean Corpuscular HGB Conc 29.6 g/dl (32-36); Mean Corpuscular Hemoglobin 29.5 pg (26-34); Mean Corpuscular Volume 99.6 fl (80-100); Mean Platelet Volume 10.6 fl (7.4-10.4); Platelet Count Result 151 k/mm3 (150-375); Red Blood Count 2.58 M/mm3 (4.2-5.4); Red Cell Distribution Width 16.2 % (11.5-14.5); White Blood Count 10.7 K/mm3 (4.5-10.0)
[2023-05-19 04:34] LABS: Alanine Aminotransferase 19 U/L (6-35); Albumin Level 3.2 g/dL (3.5-5.1); Alkaline Phosphatase 98 U/L (38-126); Anion Gap 11 mmol/L (8-16); Aspartate Amino Transferase 21 U/L (14-36); Bilirubin,Total 0.4 mg/dL (0.2-1.3); Blood Urea Nitrogen 50 mg/dL (7-17); Calcium 8.2 mg/dL (8.4-10.2); Carbon Dioxide 21 mmol/L (22-30); Chloride 111 mmol/L (98-107); Estimated CRCL calculation 30 ml/min; Estimated Glomerular Filt Rate 19; Glucose 104 mg/dL (65-110); Magnesium 1.5 mg/dL (1.6-2.3); Phosphorus 4.1 mg/dL (2.5-4.5); Potassium 3.8 mmol/L (3.4-5.0); Sodium 143 mmol/L (137-145)
[2023-05-19 04:45] LABS: Base Excess ABG -2.9 mEq/l (+/-2.0); Fractional Inspired Oxygen 30 %; HCO3 ABG 21.1 mEq/l (22.0-26.0); Oxygen Content ABG 15.3 %vol (16.0-22.0); Oxygen Saturation ABG 98.9 % (95.0-100.0); Oxyhemoglobin 97.1 % THb (90.0-100.0); PCO2 ABG 34.2 mmHg (35.0-45.0); PO2 ABG 144.7 mmHg (80.0-100.0); PO2 FiO2 Ratio Arterial Blood 4.82 %; pH ABG 7.409 (7.350-7.450)
[2023-05-19 04:46] LABS: Device BIPAP; Expiratory Pressure 7 cmH2O; Modified Allen's Test Pass; Site Drawn RIGHT RADIAL
[2023-05-19 04:47] LABS: Inspiratory Pressure 14 cmH2O
[2023-05-19] MEDS: NITROGLYCERIN/D5W 200 MCG/ML 50 MG/250 ML BTL 45 MG IV CONT ×2 (04:59→10:40)
--- NOTE | 2023-05-19 08:41 | WPDINTPN ---
Progress Note: A&P Assessment and Plan (1) Acute and chronic respiratory failure with hypoxia: Code(s): J96.21 - Acute and chronic respiratory failure with hypoxia Status: Acute Assessment and Plan: Patient presented with shortness of breath from a [facility] along with tachycardia and tachypnea and hypertension. Likely related to CHF, pulmonary edema -chest x-ray with small: Probable left lower lobe atelectasis versus pneumonia.Minimal central congestive rolon -patient remains on BiPAP 14/7, 30% and tolerated -wean FiO2 to maintain O2 sats > 90% -continue bronchodilators -also discussed with the patient that if her respiratory status worsens she may require intubation and mechanical ventilation to which she is agreeable -currently on 2 L nasal cannula with adequate O2 sats -continue diuresis -patient needs to wear BiPAP at night and during the day while asleep -appreciate renal case manager evaluation and recommendations (2) Pneumonia: Code(s): J18.9 - Pneumonia, unspecified organism Status: Acute Assessment and Plan: Chest x-ray as above, could be be related to pneumonia versus pulmonary edema -started patient on ceftriaxone and vancomycin (05/17) (3) Acute exacerbation of CHF (congestive heart failure): Qualifiers: Heart failure type: diastolic Qualified Code(s): I50.33 - Acute on chronic diastolic (congestive) heart failure Code(s): I50.9 - Heart failure, unspecified Status: Acute Assessment and Plan: Chest x-ray shows possible pulmonary edema versus [place] [address] [place] admission -patient received Lasix 80 mg IV x1 in the ER, -responding well to diuresis -continue Lasix b.i.d. 04/17/2023 Echocardiogram: LV dilatation with severe global systolic dysfunction, EF 30%, grade 1 diastolic dysfunction, no obvious valvular dysfunction although the quality of exam was very challenging, RVSP 21 mmHg. Patient is on multiple medications at home her heart failure including carvedilol, Lasix, isosorbide mononitrate, Entresto, spironolactone patient currently NPO due to being on BiPAP, tachypneic and in respiratory distress, will restart once able to take p.o. (4) CKD (chronic kidney disease) stage 3, GFR 30-59 ml/min: Qualifiers: Chronic kidney disease stage 3 subtype: stage 3a (GFR 45-59) Qualified Code(s): N18.31 - Chronic kidney disease, stage 3a Code(s): N18.30 - Chronic kidney disease, stage 3 unspecified Status: Acute Assessment and Plan: Patient has history of chronic kidney disease stage 3 -was recently in the hospital in April 2023 -appreciate nephrology evaluation and recommendations -continue diuresis -creatinine trending down -monitor urine output, renal function electrolytes (5) Hypertensive urgency: Code(s): I16.0 - Hypertensive urgency Status: Acute Assessment and Plan: Patient with blood pressures of 211/121, patient on multiple medications at home including labetalol, carvedilol, clonidine, furosemide, spironolactone, Imdur, nifedipine -will start her home meds -p.r.n. IV metoprolol -continue p.r.n. hydralazine IV -wean nitroglycerin infusion once home meds are started (6) Elevated troponin: Code(s): R77.8 - Other specified abnormalities of plasma proteins Status: Acute Assessment and Plan: troponin was positive at 1.030, likely related to ischemic demand secondary to respiratory failure -repeat troponin was 0.822 -appreciate cardiology evaluation recommendation (7) Seizure: Code(s): R56.9 - Unspecified convulsions Status: Acute Assessment and Plan: Patient on phenytoin at [facility] - phenytoin 200 mg IV q.12 hours (discussed with pharmacy) (8) Anemia: Code(s): D64.9 - Anemia, unspecified Status: Acute Assessment and Plan: 05/18: Patient dropped her hemoglobin 6.8 this morning will transfuse 1 unit of packed RB
[2023-05-19] MEDS: MAGNESIUM SULF 2 GM/WATER 50ML 2 GM/50 ML BAG IVPB (08:43)
[2023-05-19] MEDS: AZITHROMYCIN 500 MG/NS 250 ML 500 MG/250 ML BAG 250 MG IVPB (08:43)
[2023-05-19] MEDS: cefTRIAXone 2 GM/NS 100 ML 2 GM/100 ML BAG IVPB (08:44)
[2023-05-19] MEDS: LABETALOL HCL 100 MG TABLET 200 MG PO ×2 (08:44→17:04)
[2023-05-19] MEDS: FUROSEMIDE INJ 40 MG/4 ML VIAL IV PUSH ×2 (08:45→17:04)
[2023-05-19] MEDS: PANTOPRAZOLE SODIUM IV 40 MG VIAL IV PUSH ×2 (08:45→21:25)
[2023-05-19] MEDS: PHENYTOIN SODIUM INJ 100 MG/2 ML VIAL (*BKC) 200 MG IV PUSH ×2 (08:45→21:25)
[2023-05-19] MEDS: ASPIRIN 81 MG CHEWABLE TABLET PO (08:45)
[2023-05-19] MEDS: ESCITALOPRAM OXALATE 10 MG TABLET PO (08:45)
[2023-05-19] MEDS: ISOSORBIDE MONONITRATE 30 MG TAB.ER.24H PO (08:47)
[2023-05-19] MEDS: carvediloL 25 MG TABLET PO ×2 (08:47→21:26)
[2023-05-19 09:13] LABS: Iron 36 ug/dL (37-170)
[2023-05-19 09:23] LABS: Percent Iron Saturation 23 % (20-50)
[2023-05-19] MEDS: ALBUTEROL SULFATE NEB 2.5 MG/3 ML INH INHALATION ×6 (09:29→23:23)
[2023-05-19] MEDS: IPRATROPIUM BR 0.02% INH SOLN 0.5 MG/2.5 ML VIAL INHALATION ×6 (09:29→23:23)
[2023-05-19] MEDS: BUDESONIDE RESPULE NEB 0.5 MG/2 ML AMP INHALATION ×2 (09:34→20:30)
--- NOTE | 2023-05-19 10:07 | PM.PNPUL ---
Progress Note: A&P Assessment and Plan (1) Acute exacerbation of CHF (congestive heart failure): Qualifiers: Heart failure type: diastolic Qualified Code(s): I50.33 - Acute on chronic diastolic (congestive) heart failure Code(s): I50.9 - Heart failure, unspecified Status: Acute (2) Pneumonia: Code(s): J18.9 - Pneumonia, unspecified organism Status: Acute (3) Acute and chronic respiratory failure with hypoxia: Code(s): J96.21 - Acute and chronic respiratory failure with hypoxia Status: Acute Assessment and Plan: This 52-year-old female with a history of morbid obesity, documented history of congestive heart failure with low EF in the range of 25-30% during recent hospitalization, presented with 1 day history of increasing shortness of breath. On initial chest x-ray there was evidence of bilateral infiltrates with pulmonary edema distribution and question of left lower lobe infiltrate which could be due to pneumonia. On physical exam she had crackles and no evidence of wheezing. Patient has been on BiPAP support since admission to the intensive care unit. There seems to be improvement of her respiratory status, with blood gases showing lower FiO2 at 30%, adequate oxygenation and lower PCO2. Further improvement of blood gases on today's measurement noted. She is no longer hypercapnic, currently on nasal cannula. Chest x-ray showed significant clearing of bilateral infiltrates. No clear-cut evidence of consolidation in left lung base that would be due to pneumonia. Patient is still on antibiotics. Plan: There has been a notable improvement in the patient's respiratory status and gas exchange. It's recommended to proceed with BiPAP support during the night, using the same settings, and as needed during the day. If the MRSA screening results are negative, it might be necessary to stop vancomycin. (4) Pulmonary infiltrates: Code(s): R91.8 - Other nonspecific abnormal finding of lung field Status: Acute Subjective Date/time seen: 05/19/23 10:07 Interval history: Patient doing better. Currently on nasal cannula. Used BiPAP support last night. He has no new respiratory symptoms. She still on antibiotics ceftriaxone and vancomycin. Clearing of infiltrates noted on chest x-ray. Review of Systems Review of Systems: All systems reviewed & are unremarkable except as noted in HPI and below (HPI and below) Exam Narrative: GENERAL APPEARANCE: Well developed, well nourished, morbidly obese currently sitting up in bed while on supplemental oxygen via nasal cannula SKIN: Inspection of the skin reveals no rashes, ulcerations or petechiae. HEENT: Sclerae anicteric and conjunctivae pink and moist. Extraocular movements were intact and pupils were equal, round. NECK: Supple. There was no thyroid enlargement, and no tenderness, or masses were felt. LUNGS: Few crackles at bases posteriorly, no wheezing CARDIAC: There was a regular rate and rhythm without any murmurs, gallops, rubs. ABDOMEN: Soft and nontender. EXTREMITIES: No cyanosis, clubbing or edema. Above knee amputation right lower extremity NEUROLOGIC: Patient alert, answering questions appropriately. Moving all extremities. Objective Data Vital Signs Vital Signs: Vital Signs - 24 hr 05/18/23 10:22 05/18/23 11:21 05/18/23 11:22 Temperature 36.7 C 36.6 C Pulse Rate 98 97 98 Respiratory Rate 15 17 Blood Pressure 160/98 H 168/93 H 168/93 H Pulse Oximetry 100 100 Oxygen Delivery Oxygen Flow Rate Fraction of Inspired Oxygen 05/18/23 10:54 05/18/23 10:56 05/18/23 11:12 Temperature Pulse Rate 96 99 93 Respiratory Rate 20 19 22 H Blood Pressure Pulse Oximetry 100 Oxygen Delivery BiPAP Oxygen Flow Rate Fraction of Inspired Oxygen 05/18/23 11:50 05/18/23 12:00 05/18/23 12:00 Temperature 36.6 C Pulse Rate 96 97 106 H Respiratory Rate 21 H 21 H Blood Pressure 157/90
[2023-05-19 10:15] LABS: Folic Acid 5.6 ng/mL (2.76->20)
--- NOTE | 2023-05-19 11:56 | P.PNNP_ITS ---
Progress Note: A&P Assessment and Plan (1) ARMIN (acute kidney injury): Code(s): N17.9 - Acute kidney failure, unspecified Status: Acute Assessment and Plan: * noted on previous hospitalization here at [place] in April 2023 * discharged with a creatinine of 3.7mg/dl * suspected etiology was ATN due to infection (COVID + pneumonia) and CHF exacerbation * evaluation during April 2023 admission noted: * renal ultrasound with medical renal disease (incomplete visualization of saul kidney) * CPK okay * UA with blood and protein along with?granular casts * urine electrolytes never done * no peripheral eosinophilia or rash * serologies (GISELA, ANCA, dsDNA-Ab, antiGBM-ab, complements, and serm/urine immunofixation) were all negative * her creatinine is stable. * It is unclear if this is a new baseline or if this is just persistent acute kidney injury. * labs all unremarkable as above. (2) Stage 3a chronic kidney disease: Code(s): N18.31 - Chronic kidney disease, stage 3a Status: Chronic Assessment and Plan: * creatinine was running around 1.4 - 1.5mg/dl in November 2021 * presumably secondary to hypertension and vascular disease as well as CHF * there may be a component of CKD progression on top of ARMIN/ARF from last hospital admission (3) Acute and chronic respiratory failure with hypoxia: Code(s): J96.21 - Acute and chronic respiratory failure with hypoxia Status: Acute Assessment and Plan: * This is better. * She is now on only 2L of oxygen per nasal cannula. * Blood gases show no CO2 retention. * Pulmonary following (4) Anemia: Code(s): D64.9 - Anemia, unspecified Status: Acute Assessment and Plan: * as noted by labs (on 05/18) * PRBC transfusion per protocol * hemoglobin is 7.6 today. * The patient is on antibiotics so reason not to give iron. * Will check a reticulocyte count and give some Epogen (5) Pneumonia: Code(s): J18.9 - Pneumonia, unspecified organism Status: Acute Assessment and Plan: * as suggested by admission CXR * on antibiotic therapy * follow culture data (6) Acute exacerbation of CHF (congestive heart failure): Qualifiers: Heart failure type: diastolic Qualified Code(s): I50.33 - Acute on chronic diastolic (congestive) heart failure Code(s): I50.9 - Heart failure, unspecified Status: Acute Assessment and Plan: * evidence of pulmonary edema on admission CXR * elevated proBNP as well * continue IV diuretics as long as she is responsive * previous echo noted (on 04/17/23): * LV dilatation with severe global systolic dysfunction, EF 30%, grade 1 diastolic dysfunction, no obvious valvular dysfunction although the quality of exam was very challenging, RVSP 21 mmHg. * was on medical management with carvedilol, Lasix, isosorbide mononitrate, Entresto, spironolactone * resume this when able (7) Hypertensive urgency: Code(s): I16.0 - Hypertensive urgency Status: Acute Assessment and Plan: * systolic BP > 200s on admission * on nitroglycerin gtt * resume home/oral medications when able * bp in the 160s. * on carv 25 bid, clon patch 0.1, labetalol 200 bid. nifed 60 qhs. * will inc nifed to 90. * check phenytoin level in am (8) Elevated troponin: Code(s): R77.8 - Other specified abnormalities of plasma proteins Status: Acute Assessment and Plan: * suspect due to demand ischemia fr
--- NOTE | 2023-05-19 11:56 | PM.PNNEP ---
Progress Note: A&P Assessment and Plan (1) ARMIN (acute kidney injury): Code(s): N17.9 - Acute kidney failure, unspecified Status: Acute Assessment and Plan: noted on previous hospitalization here at [place] in April 2023 discharged with a creatinine of 3.7mg/dl suspected etiology was ATN due to infection (COVID + pneumonia) and CHF exacerbation evaluation during April 2023 admission noted: renal ultrasound with medical renal disease (incomplete visualization of saul kidney) CPK okay UA with blood and protein along with?granular casts urine electrolytes never done no peripheral eosinophilia or rash serologies (GISELA, ANCA, dsDNA-Ab, antiGBM-ab, complements, and serm/urine immunofixation) were all negative her creatinine is stable. It is unclear if this is a new baseline or if this is just persistent acute kidney injury. labs all unremarkable as above. (2) Stage 3a chronic kidney disease: Code(s): N18.31 - Chronic kidney disease, stage 3a Status: Chronic Assessment and Plan: creatinine was running around 1.4 - 1.5mg/dl in November 2021 presumably secondary to hypertension and vascular disease as well as CHF there may be a component of CKD progression on top of ARMIN/ARF from last hospital admission (3) Acute and chronic respiratory failure with hypoxia: Code(s): J96.21 - Acute and chronic respiratory failure with hypoxia Status: Acute Assessment and Plan: This is better. She is now on only 2L of oxygen per nasal cannula. Blood gases show no CO2 retention. Pulmonary following (4) Anemia: Code(s): D64.9 - Anemia, unspecified Status: Acute Assessment and Plan: as noted by labs (on 05/18) PRBC transfusion per protocol hemoglobin is 7.6 today. The patient is on antibiotics so reason not to give iron. Will check a reticulocyte count and give some Epogen (5) Pneumonia: Code(s): J18.9 - Pneumonia, unspecified organism Status: Acute Assessment and Plan: as suggested by admission CXR on antibiotic therapy follow culture data (6) Acute exacerbation of CHF (congestive heart failure): Qualifiers: Heart failure type: diastolic Qualified Code(s): I50.33 - Acute on chronic diastolic (congestive) heart failure Code(s): I50.9 - Heart failure, unspecified Status: Acute Assessment and Plan: evidence of pulmonary edema on admission CXR elevated proBNP as well continue IV diuretics as long as she is responsive previous echo noted (on 04/17/23): LV dilatation with severe global systolic dysfunction, EF 30%, grade 1 diastolic dysfunction, no obvious valvular dysfunction although the quality of exam was very challenging, RVSP 21 mmHg. was on medical management with carvedilol, Lasix, isosorbide mononitrate, Entresto, spironolactone resume this when able (7) Hypertensive urgency: Code(s): I16.0 - Hypertensive urgency Status: Acute Assessment and Plan: systolic BP > 200s on admission on nitroglycerin gtt resume home/oral medications when able bp in the 160s. on carv 25 bid, clon patch 0.1, labetalol 200 bid. nifed 60 qhs. will inc nifed to 90. check phenytoin level in am (8) Elevated troponin: Code(s): R77.8 - Other specified abnormalities of plasma proteins Status: Acute Assessment and Plan: suspect due to demand ischemia from acute respiratory failure follow trend of troponins Cardiology following Discussed case with Dr. Mai. Will continue to follow. Subjective Date/time seen: 05/19/23 11:56 Interval history: Jessica is still in the ICU. She is lying in semi-Perez's position eating some lunch. No chest pain or shortness of breath. She is in good spirits. Her aunt is in the room. Exam Narrative: General: Large female on BiPAP therapy Hear
[2023-05-19] MEDS: NIFEdipine 30 MG TAB.ER.24 90 MG PO (12:45)
[2023-05-19] MEDS: EPOETIN ALFA-EPBX 10,000 UNITS/ML VIAL 10000 UNITS SUB-Q (14:42)
[2023-05-19] MEDS: cloNIDine HCL 0.2 MG TABLET PO (17:04)
[2023-05-19] MEDS: ATORVASTATIN 40 MG TABLET 80 MG PO (21:25)
[2023-05-20] VITALS (27 sets, daily range): BP systolic 125–165; BP diastolic 74–96; PULSE 73–93; RESP 15–22; TEMP 36.6–37.4; O2SAT 97–100
[2023-05-20] MEDS: hydrALAZINE HCL 20 MG/ML VIAL IV PUSH (04:46)
[2023-05-20] MEDS: ALBUTEROL SULFATE NEB 2.5 MG/3 ML INH INHALATION ×6 (05:03→23:35)
[2023-05-20] MEDS: IPRATROPIUM BR 0.02% INH SOLN 0.5 MG/2.5 ML VIAL INHALATION ×6 (05:03→23:35)
[2023-05-20 07:18] LABS: Basophils Absolute Auto 0.1 K/mm3 (0.0-0.1); Basophils Percent Auto 0.6 % (0.2-1.2); Eosinophils Absolute Auto 0.3 K/mm3 (0-0.3); Eosinophils Percent Auto 2.9 % (0-4.4); Hematocrit 27.4 % (37.0-47.0); Hemoglobin 8.3 g/dL (12.0-15.0); Immature Granulocyte Absolute 0.11 K/mm3 (0.00-0.031); Immature Granulocyte Percent A 1.2 % (0-0.5); Immature Reticulocyte Fraction 26.7 % (3.0-15.9); Lymphocytes Absolute Auto 1.46 K/mm3 (0.9-3.2); Lymphocytes Percent Auto 16.3 % (18.3-44.2); Mean Corpuscular HGB Conc 30.3 g/dl (32-36); Mean Corpuscular Hemoglobin 28.9 pg (26-34); Mean Corpuscular Volume 95.5 fl (80-100); Mean Platelet Volume 10.5 fl (7.4-10.4); Monocytes Absolute Auto 0.6 K/mm3 (0.1-0.6); Monocytes Percent Auto 6.4 % (2.6-8.5); Neutrophils Absolute Auto 6.5 K/mm3 (1.3-6.7); Neutrophils Percent Auto 72.6 % (45.5-73.1); Platelet Count Result 150 k/mm3 (150-375); Red Blood Count 2.87 M/mm3 (4.2-5.4); Red Cell Distribution Width 15.7 % (11.5-14.5); Reticulocyte Hemoglobin Conten 30.8 pg (28.2-35.7); Reticulocyte Percent 3.21 % (0.7-4.3); Reticulocytes Absolute 0.09 M/mm3 (0.02-0.1)
[2023-05-20 07:29] LABS: Alanine Aminotransferase 28 U/L (6-35); Albumin Level 3.6 g/dL (3.5-5.1); Alkaline Phosphatase 100 U/L (38-126); Anion Gap 8 mmol/L (8-16); Aspartate Amino Transferase 28 U/L (14-36); Bilirubin,Total 0.3 mg/dL (0.2-1.3); Blood Urea Nitrogen 50 mg/dL (7-17); Calcium 8.3 mg/dL (8.4-10.2); Carbon Dioxide 25 mmol/L (22-30); Chloride 108 mmol/L (98-107); Estimated CRCL calculation 26 ml/min; Estimated Glomerular Filt Rate 17; Glucose 100 mg/dL (65-110); Magnesium 1.8 mg/dL (1.6-2.3); Phenytoin Dilantin 8 ug/mL (10-20); Phosphorus 5.4 mg/dL (2.5-4.5); Sodium 141 mmol/L (137-145)
[2023-05-20] MEDS: BUDESONIDE RESPULE NEB 0.5 MG/2 ML AMP INHALATION ×2 (07:52→19:53)
[2023-05-20] MEDS: FUROSEMIDE INJ 40 MG/4 ML VIAL IV PUSH ×2 (08:30→17:13)
[2023-05-20] MEDS: PHENYTOIN SODIUM INJ 100 MG/2 ML VIAL (*BKC) 200 MG IV PUSH ×2 (08:30→20:01)
[2023-05-20] MEDS: AZITHROMYCIN 500 MG/NS 250 ML 500 MG/250 ML BAG 250 MG IVPB (08:30)
[2023-05-20] MEDS: cefTRIAXone 2 GM/NS 100 ML 2 GM/100 ML BAG IVPB (08:30)
[2023-05-20] MEDS: ISOSORBIDE MONONITRATE 30 MG TAB.ER.24H PO (08:31)
[2023-05-20] MEDS: NIFEdipine 30 MG TAB.ER.24 90 MG PO (08:31)
[2023-05-20] MEDS: ESCITALOPRAM OXALATE 10 MG TABLET PO (08:31)
[2023-05-20] MEDS: PANTOPRAZOLE SODIUM IV 40 MG VIAL IV PUSH ×2 (08:31→20:00)
[2023-05-20] MEDS: LABETALOL HCL 100 MG TABLET 200 MG PO ×2 (08:31→17:13)
[2023-05-20] MEDS: cloNIDine HCL 0.2 MG TABLET PO ×3 (08:31→17:13)
[2023-05-20] MEDS: ASPIRIN 81 MG CHEWABLE TABLET PO (08:31)
[2023-05-20] MEDS: carvediloL 25 MG TABLET PO ×2 (08:31→20:01)
--- NOTE | 2023-05-20 10:08 | P.PNNP_ITS ---
Progress Note: A&P Assessment and Plan (1) ARMIN (acute kidney injury): Code(s): N17.9 - Acute kidney failure, unspecified Status: Acute Assessment and Plan: * noted on previous hospitalization here at [place] in April 2023 * discharged with a creatinine of 3.7mg/dl * suspected etiology was ATN due to infection (COVID + pneumonia) and CHF exacerbation * evaluation during April 2023 admission noted: * renal ultrasound with medical renal disease (incomplete visualization of saul kidney) * CPK okay * UA with blood and protein along with?granular casts * urine electrolytes never done * no peripheral eosinophilia or rash * serologies (GISELA, ANCA, dsDNA-Ab, antiGBM-ab, complements, and serm/urine immunofixation) were all negative * echo showed EF of only 30%. No pulmonary hypertension. * her creatinine is stable. * It is unclear if this is a new baseline or if this is just persistent acute kidney injury. * labs all unremarkable as above. * It would be very difficult to do a kidney biopsy Because of her body habitus. the risk would probably outweigh the benefit. * Will continue control the controllable issues. Include heart failure, blood pressure control, protein diet, weight loss,. (2) Stage 3a chronic kidney disease: Code(s): N18.31 - Chronic kidney disease, stage 3a Status: Chronic Assessment and Plan: * creatinine was running around 1.4 - 1.5mg/dl in November 2021 * presumably secondary to hypertension and vascular disease as well as CHF * there may be a component of CKD progression on top of ARMIN/ARF from last hospital admission (3) Acute and chronic respiratory failure with hypoxia: Code(s): J96.21 - Acute and chronic respiratory failure with hypoxia Status: Acute Assessment and Plan: * This is better. * She is now on only 2L of oxygen per nasal cannula. * Blood gases show no CO2 retention. * Pulmonary following (4) Anemia: Code(s): D64.9 - Anemia, unspecified Status: Acute Assessment and Plan: * as noted by labs (on 05/18) * PRBC transfusion per protocol * hemoglobin is 7.6 today. * The patient is on antibiotics so reason not to give iron. * Will check a reticulocyte count and give some Epogen (5) Pneumonia: Code(s): J18.9 - Pneumonia, unspecified organism Status: Acute Assessment and Plan: * as suggested by admission CXR * on antibiotic therapy * follow culture data (6) Acute exacerbation of CHF (congestive heart failure): Qualifiers: Heart failure type: diastolic Qualified Code(s): I50.33 - Acute on chronic diastolic (congestive) heart failure Code(s): I50.9 - Heart failure, unspecified Status: Acute Assessment and Plan: * evidence of pulmonary edema on admission CXR * elevated proBNP as well * continue IV diuretics as long as she is responsive * previous echo noted (on 04/17/23): * LV dilatation with severe global systolic dysfunction, EF 30%, grade 1 diastolic dysfunction, no obvious valvular dysfunction although the quality of exam was very challenging, RVSP 21 mmHg. * was on medical management with carvedilol, Lasix, isosorbide mononitrate, Entresto, spironolactone * resume this when able (7) Hypertensive urgency: Code(s): I16.0 - Hypertensive urgency Status: Acute Assessment and Plan: * systolic BP > 200s on admission * on nitroglycerin gtt * resume home/oral medications when able * bp in the 160s. * o
--- NOTE | 2023-05-20 10:08 | PM.PNNEP ---
Progress Note: A&P Assessment and Plan (1) ARMIN (acute kidney injury): Code(s): N17.9 - Acute kidney failure, unspecified Status: Acute Assessment and Plan: noted on previous hospitalization here at [place] in April 2023 discharged with a creatinine of 3.7mg/dl suspected etiology was ATN due to infection (COVID + pneumonia) and CHF exacerbation evaluation during April 2023 admission noted: renal ultrasound with medical renal disease (incomplete visualization of saul kidney) CPK okay UA with blood and protein along with?granular casts urine electrolytes never done no peripheral eosinophilia or rash serologies (GISELA, ANCA, dsDNA-Ab, antiGBM-ab, complements, and serm/urine immunofixation) were all negative echo showed EF of only 30%. No pulmonary hypertension. her creatinine is stable. It is unclear if this is a new baseline or if this is just persistent acute kidney injury. labs all unremarkable as above. It would be very difficult to do a kidney biopsy Because of her body habitus. the risk would probably outweigh the benefit. Will continue control the controllable issues. Include heart failure, blood pressure control, protein diet, weight loss,. (2) Stage 3a chronic kidney disease: Code(s): N18.31 - Chronic kidney disease, stage 3a Status: Chronic Assessment and Plan: creatinine was running around 1.4 - 1.5mg/dl in November 2021 presumably secondary to hypertension and vascular disease as well as CHF there may be a component of CKD progression on top of ARMIN/ARF from last hospital admission (3) Acute and chronic respiratory failure with hypoxia: Code(s): J96.21 - Acute and chronic respiratory failure with hypoxia Status: Acute Assessment and Plan: This is better. She is now on only 2L of oxygen per nasal cannula. Blood gases show no CO2 retention. Pulmonary following (4) Anemia: Code(s): D64.9 - Anemia, unspecified Status: Acute Assessment and Plan: as noted by labs (on 05/18) PRBC transfusion per protocol hemoglobin is 7.6 today. The patient is on antibiotics so reason not to give iron. Will check a reticulocyte count and give some Epogen (5) Pneumonia: Code(s): J18.9 - Pneumonia, unspecified organism Status: Acute Assessment and Plan: as suggested by admission CXR on antibiotic therapy follow culture data (6) Acute exacerbation of CHF (congestive heart failure): Qualifiers: Heart failure type: diastolic Qualified Code(s): I50.33 - Acute on chronic diastolic (congestive) heart failure Code(s): I50.9 - Heart failure, unspecified Status: Acute Assessment and Plan: evidence of pulmonary edema on admission CXR elevated proBNP as well continue IV diuretics as long as she is responsive previous echo noted (on 04/17/23): LV dilatation with severe global systolic dysfunction, EF 30%, grade 1 diastolic dysfunction, no obvious valvular dysfunction although the quality of exam was very challenging, RVSP 21 mmHg. was on medical management with carvedilol, Lasix, isosorbide mononitrate, Entresto, spironolactone resume this when able (7) Hypertensive urgency: Code(s): I16.0 - Hypertensive urgency Status: Acute Assessment and Plan: systolic BP > 200s on admission on nitroglycerin gtt resume home/oral medications when able bp in the 160s. on carv 25 bid, clon patch 0.1, labetalol 200 bid. nifed 90 daily Nifedipine increased to 90mg. Phenytoin level is 8. May need a give a higher dose of nifedipine if this does not work. (8) Elevated troponin: Code(s): R77.8 - Other specified abnormalities of plasma proteins Status: Acute Assessment and Plan: suspect due to demand ischemia from acute respiratory failure follow trend of troponins Cardiology following Discussed case with
[2023-05-20 13:25] LABS: Vancomycin Trough 21.4 ug/mL (10.0-20.0)
--- NOTE | 2023-05-20 15:15 | PM.IMPN ---
Progress Note: A&P Assessment and Plan (1) Acute and chronic respiratory failure with hypoxia: Code(s): J96.21 - Acute and chronic respiratory failure with hypoxia Status: Acute Assessment and Plan: Patient presented with shortness of breath from a halfway along with tachycardia and tachypnea and hypertension. Likely related to CHF, pulmonary edema -chest x-ray with small: Probable left lower lobe atelectasis versus pneumonia.Minimal central congestive rolon -patient remains on BiPAP 14/7, 30% and tolerated -wean FiO2 to maintain O2 sats > 90% -continue bronchodilators -also discussed with the patient that if her respiratory status worsens she may require intubation and mechanical ventilation to which she is agreeable -currently on 2 L nasal cannula with adequate O2 sats -continue diuresis -patient needs to wear BiPAP at night and during the day while asleep -appreciate public health program manager evaluation and recommendations (2) Pneumonia: Code(s): J18.9 - Pneumonia, unspecified organism Status: Acute Assessment and Plan: Chest x-ray as above, could be be related to pneumonia versus pulmonary edema -started patient on ceftriaxone and vancomycin (05/17) (3) Acute exacerbation of CHF (congestive heart failure): Qualifiers: Heart failure type: diastolic Qualified Code(s): I50.33 - Acute on chronic diastolic (congestive) heart failure Code(s): I50.9 - Heart failure, unspecified Status: Acute Assessment and Plan: Chest x-ray shows possible pulmonary edema versus [place] [address] on admission -patient received Lasix 80 mg IV x1 in the ER, -responding well to diuresis -continue Lasix b.i.d. 04/17/2023 Echocardiogram: LV dilatation with severe global systolic dysfunction, EF 30%, grade 1 diastolic dysfunction, no obvious valvular dysfunction although the quality of exam was very challenging, RVSP 21 mmHg. Patient is on multiple medications at home her heart failure including carvedilol, Lasix, isosorbide mononitrate, Entresto, spironolactone patient currently NPO due to being on BiPAP, tachypneic and in respiratory distress, will restart once able to take p.o. (4) CKD (chronic kidney disease) stage 3, GFR 30-59 ml/min: Qualifiers: Chronic kidney disease stage 3 subtype: stage 3a (GFR 45-59) Qualified Code(s): N18.31 - Chronic kidney disease, stage 3a Code(s): N18.30 - Chronic kidney disease, stage 3 unspecified Status: Acute Assessment and Plan: Patient has history of chronic kidney disease stage 3 -was recently in the hospital in April 2023 -appreciate nephrology evaluation and recommendations -continue diuresis -creatinine trending down -monitor urine output, renal function electrolytes (5) Hypertensive urgency: Code(s): I16.0 - Hypertensive urgency Status: Acute Assessment and Plan: Patient with blood pressures of 211/121, patient on multiple medications at home including labetalol, carvedilol, clonidine, furosemide, spironolactone, Imdur, nifedipine -will start her home meds -p.r.n. IV metoprolol -continue p.r.n. hydralazine IV -wean nitroglycerin infusion once home meds are started (6) Elevated troponin: Code(s): R77.8 - Other specified abnormalities of plasma proteins Status: Acute Assessment and Plan: troponin was positive at 1.030, likely related to ischemic demand secondary to respiratory failure -repeat troponin was 0.822 -appreciate cardiology evaluation recommendation (7) Seizure: Code(s): R56.9 - Unspecified convulsions Status: Acute Assessment and Plan: Patient on phenytoin at halfway - phenytoin 200 mg IV q.12 hours (discussed with pharmacy) (8) Anemia: Code(s): D64.9 - Anemia, unspecified Status: Acute Assessment and Plan: 05/18: Patient dropped her hemoglobin 6.8 this morning will transfuse 1 unit of packed RB
--- NOTE | 2023-05-20 16:07 | PCOTNOTE ---
OT evaluation orders received. [facility] is a [facility] resident who is w/c bound at her baseline. She receives total care for ADLs. She is at her baseline at this time. Discharging OT orders. Attempted to contact provider, but he did not answer.
[2023-05-20] MEDS: HEPARIN SODIUM 5,000 UNITS/ML VIAL 5000 UNITS SUB-Q (20:00)
[2023-05-20] MEDS: ATORVASTATIN 40 MG TABLET 80 MG PO (20:01)
[2023-05-21] VITALS (21 sets, daily range): BP systolic 112–146; BP diastolic 71–92; PULSE 70–85; RESP 13–25; TEMP 36.2–37.1; O2SAT 97–100
[2023-05-21 04:37] LABS: Basophils Absolute Auto 0.1 K/mm3 (0.0-0.1); Basophils Percent Auto 0.8 % (0.2-1.2); Eosinophils Absolute Auto 0.3 K/mm3 (0-0.3); Eosinophils Percent Auto 3.7 % (0-4.4); Hematocrit 26.9 % (37.0-47.0); Hemoglobin 8.1 g/dL (12.0-15.0); Immature Granulocyte Absolute 0.07 K/mm3 (0.00-0.031); Immature Granulocyte Percent A 0.8 % (0-0.5); Lymphocytes Absolute Auto 2.03 K/mm3 (0.9-3.2); Lymphocytes Percent Auto 23.4 % (18.3-44.2); Mean Corpuscular HGB Conc 30.1 g/dl (32-36); Mean Corpuscular Hemoglobin 29.1 pg (26-34); Mean Corpuscular Volume 96.8 fl (80-100); Mean Platelet Volume 10.6 fl (7.4-10.4); Monocytes Absolute Auto 0.7 K/mm3 (0.1-0.6); Monocytes Percent Auto 8.1 % (2.6-8.5); Neutrophils Absolute Auto 5.5 K/mm3 (1.3-6.7); Neutrophils Percent Auto 63.2 % (45.5-73.1); Platelet Count Result 154 k/mm3 (150-375); Red Blood Count 2.78 M/mm3 (4.2-5.4); Red Cell Distribution Width 15.2 % (11.5-14.5); White Blood Count 8.7 K/mm3 (4.5-10.0)
[2023-05-21 04:46] LABS: Alanine Aminotransferase 29 U/L (6-35); Albumin Level 3.4 g/dL (3.5-5.1); Alkaline Phosphatase 98 U/L (38-126); Anion Gap 8 mmol/L (8-16); Aspartate Amino Transferase 23 U/L (14-36); Bilirubin,Total 0.2 mg/dL (0.2-1.3); Blood Urea Nitrogen 53 mg/dL (7-17); Carbon Dioxide 24 mmol/L (22-30); Chloride 106 mmol/L (98-107); Estimated CRCL calculation 28 ml/min; Estimated Glomerular Filt Rate 18; Glucose 94 mg/dL (65-110); Magnesium 1.8 mg/dL (1.6-2.3); Phosphorus 5.8 mg/dL (2.5-4.5); Potassium 4.1 mmol/L (3.4-5.0); Sodium 138 mmol/L (137-145)
[2023-05-21] MEDS: ALBUTEROL SULFATE NEB 2.5 MG/3 ML INH INHALATION ×6 (05:03→23:19)
[2023-05-21] MEDS: IPRATROPIUM BR 0.02% INH SOLN 0.5 MG/2.5 ML VIAL INHALATION ×6 (05:04→23:20)
[2023-05-21] MEDS: VANCOMYCIN 1,250 MG/NS 250 ML 1,250 MG/250 ML BAG 166.67 MG IVPB (05:30)
[2023-05-21] MEDS: BUDESONIDE RESPULE NEB 0.5 MG/2 ML AMP INHALATION ×2 (07:50→19:24)
[2023-05-21] MEDS: NIFEdipine 30 MG TAB.ER.24 90 MG PO (08:39)
[2023-05-21] MEDS: LABETALOL HCL 100 MG TABLET 200 MG PO ×2 (08:40→17:06)
[2023-05-21] MEDS: ESCITALOPRAM OXALATE 10 MG TABLET PO (08:40)
[2023-05-21] MEDS: carvediloL 25 MG TABLET PO ×2 (08:40→21:17)
[2023-05-21] MEDS: ISOSORBIDE MONONITRATE 30 MG TAB.ER.24H PO (08:41)
[2023-05-21] MEDS: ASPIRIN 81 MG CHEWABLE TABLET PO (08:41)
[2023-05-21] MEDS: cloNIDine HCL 0.2 MG TABLET PO ×2 (08:41→17:06)
[2023-05-21] MEDS: HEPARIN SODIUM 5,000 UNITS/ML VIAL 5000 UNITS SUB-Q ×2 (08:41→21:17)
--- NOTE | 2023-05-21 08:55 | PCPTNOTE ---
05/21/23 MW PT - spoke with patient. Patient transferred phil [facility] at [facility]. Patient at baseline. No PT services indicated.
--- NOTE | 2023-05-21 09:03 | PM.IMPN ---
Progress Note: A&P Assessment and Plan (1) Acute and chronic respiratory failure with hypoxia: Code(s): J96.21 - Acute and chronic respiratory failure with hypoxia Status: Acute Assessment and Plan: Patient presented with [facility] from a [facility] along with tachycardia and tachypnea and hypertension. Likely related to CHF, pulmonary edema -chest x-ray with small: Probable left lower lobe atelectasis versus pneumonia.Minimal central congestive rolon -patient remains on BiPAP 14/7, 30% and tolerated -wean FiO2 to maintain O2 sats > 90% -continue bronchodilators -also discussed with the patient that if her respiratory status worsens she may require intubation and mechanical ventilation to which she is agreeable -currently on 2 L nasal cannula with adequate O2 sats -continue diuresis -patient needs to wear BiPAP at night and during the day while asleep -appreciate resource director evaluation and recommendations (2) Pneumonia: Code(s): J18.9 - Pneumonia, unspecified organism Status: Acute Assessment and Plan: Chest x-ray as above, could be be related to pneumonia versus pulmonary edema -started patient on ceftriaxone and vancomycin (05/17) (3) Acute exacerbation of CHF (congestive heart failure): Qualifiers: Heart failure type: diastolic Qualified Code(s): I50.33 - Acute on chronic diastolic (congestive) heart failure Code(s): I50.9 - Heart failure, unspecified Status: Acute Assessment and Plan: Chest x-ray shows possible pulmonary edema versus [place] [address] on admission -patient received Lasix 80 mg IV x1 in the ER, -responding well to diuresis -continue Lasix b.i.d. 04/17/2023 Echocardiogram: LV dilatation with severe global systolic dysfunction, EF 30%, grade 1 diastolic dysfunction, no obvious valvular dysfunction although the quality of exam was very challenging, RVSP 21 mmHg. Patient is on multiple medications at home her heart failure including carvedilol, Lasix, isosorbide mononitrate, Entresto, spironolactone patient currently NPO due to being on BiPAP, tachypneic and in respiratory distress, will restart once able to take p.o. (4) CKD (chronic kidney disease) stage 3, GFR 30-59 ml/min: Qualifiers: Chronic kidney disease stage 3 subtype: stage 3a (GFR 45-59) Qualified Code(s): N18.31 - Chronic kidney disease, stage 3a Code(s): N18.30 - Chronic kidney disease, stage 3 unspecified Status: Acute Assessment and Plan: Patient has history of chronic kidney disease stage 3 -was recently in the hospital in April 2023 -appreciate nephrology evaluation and recommendations -continue diuresis -creatinine trending down -monitor urine output, renal function electrolytes (5) Hypertensive urgency: Code(s): I16.0 - Hypertensive urgency Status: Acute Assessment and Plan: Patient with blood pressures of 211/121, patient on multiple medications at home including labetalol, carvedilol, clonidine, furosemide, spironolactone, Imdur, nifedipine -will start her home meds -p.r.n. IV metoprolol -continue p.r.n. hydralazine IV -wean nitroglycerin infusion once home meds are started (6) Elevated troponin: Code(s): R77.8 - Other specified abnormalities of plasma proteins Status: Acute Assessment and Plan: troponin was positive at 1.030, likely related to ischemic demand secondary to respiratory failure -repeat troponin was 0.822 -appreciate cardiology evaluation recommendation (7) Seizure: Code(s): R56.9 - Unspecified convulsions Status: Acute Assessment and Plan: [facility] on [facility]toin at [facility] - phenytoin 200 mg IV q.12 hours (discussed with pharmacy) (8) Anemia: Code(s): D64.9 - Anemia, unspecified Status: Acute Assessment and Plan: 05/18: Patient dropped her hemoglobin 6.8 this morning will transfuse 1 unit of packed RB
--- NOTE | 2023-05-21 09:27 | P.PNNP_ITS ---
Progress Note: A&P Assessment and Plan (1) ARMIN (acute kidney injury): Code(s): N17.9 - Acute kidney failure, unspecified Status: Acute Assessment and Plan: * noted on previous hospitalization here at [facility] in April 2023 * discharged with a creatinine of 3.7mg/dl * suspected etiology was ATN due to infection (COVID + pneumonia) and CHF exacerbation * evaluation during April 2023 admission noted: * renal ultrasound with medical renal disease (incomplete visualization of saul kidney) * CPK okay * UA with blood and protein along with?granular casts * urine electrolytes never done * no peripheral eosinophilia or rash * serologies (GISELA, ANCA, dsDNA-Ab, antiGBM-ab, complements, and serm/urine immunofixation) were all negative * echo showed EF of only 30%. No pulmonary hypertension. * her creatinine is slightly higher today. * She is still getting IV Lasix. * Will change to p.o. * recheck a creatinine in the morning (2) Stage 3a chronic kidney disease: Code(s): N18.31 - Chronic kidney disease, stage 3a Status: Chronic Assessment and Plan: * creatinine was running around 1.4 - 1.5mg/dl in November 2021 * presumably secondary to hypertension and vascular disease as well as CHF * there may be a component of CKD progression on top of ARMIN/ARF from last hospital admission (3) Acute and chronic respiratory failure with hypoxia: Code(s): J96.21 - Acute and chronic respiratory failure with hypoxia Status: Acute Assessment and Plan: * This is better. * She is now on only 2L of oxygen per nasal cannula. * O2 sats 98% * Blood gases have shown no CO2 retention. * Pulmonary following (4) Anemia: Code(s): D64.9 - Anemia, unspecified Status: Acute Assessment and Plan: * as noted by labs (on 05/18) * PRBC transfusion per protocol * hemoglobin is 8.1 today. * The patient is on antibiotics so reason not to give iron. * reticulocyte count 3.2 * continue Epogen * she may need this as an outpatient (5) Pneumonia: Code(s): J18.9 - Pneumonia, unspecified organism Status: Acute Assessment and Plan: * as suggested by admission CXR * on antibiotic therapy * follow culture data (6) Acute exacerbation of CHF (congestive heart failure): Qualifiers: Heart failure type: diastolic Qualified Code(s): I50.33 - Acute on chronic diastolic (congestive) heart failure Code(s): I50.9 - Heart failure, unspecified Status: Acute Assessment and Plan: * evidence of pulmonary edema on admission CXR * elevated proBNP as well * continue IV diuretics as long as she is responsive * previous echo noted (on 04/17/23): * LV dilatation with severe global systolic dysfunction, EF 30%, grade 1 diastolic dysfunction, no obvious valvular dysfunction although the quality of exam was very challenging, RVSP 21 mmHg. * was on medical management with carvedilol, Lasix, isosorbide mononitrate, Entresto, spironolactone * resume this when able (7) Hypertensive urgency: Code(s): I16.0 - Hypertensive urgency Status: Acute Assessment and Plan: * systolic BP > 200s on admission * on nitroglycerin gtt * resume home/oral medications when able * bp in the 160s. * on carv 25 bid, clon patch 0.1, labetalol 200 bid. nifed 90 daily * Nifedipine increased to 90mg. * Phenytoin level is 8. * her blood pressure is doing well on 90mg a day of nifedipine (8) Elevated tro
--- NOTE | 2023-05-21 09:27 | PM.PNNEP ---
Progress Note: A&P Assessment and Plan (1) ARMIN (acute kidney injury): Code(s): N17.9 - Acute kidney failure, unspecified Status: Acute Assessment and Plan: noted on previous hospitalization here at [facility] in April 2023 discharged with a creatinine of 3.7mg/dl suspected etiology was ATN due to infection (COVID + pneumonia) and CHF exacerbation evaluation during April 2023 admission noted: renal ultrasound with medical renal disease (incomplete visualization of saul kidney) CPK okay UA with blood and protein along with?granular casts urine electrolytes never done no peripheral eosinophilia or rash serologies (GISELA, ANCA, dsDNA-Ab, antiGBM-ab, complements, and serm/urine immunofixation) were all negative echo showed EF of only 30%. No pulmonary hypertension. her creatinine is slightly higher today. She is still getting IV Lasix. Will change to p.o. recheck a creatinine in the morning (2) Stage 3a chronic kidney disease: Code(s): N18.31 - Chronic kidney disease, stage 3a Status: Chronic Assessment and Plan: creatinine was running around 1.4 - 1.5mg/dl in November 2021 presumably secondary to hypertension and vascular disease as well as CHF there may be a component of CKD progression on top of ARMIN/ARF from last hospital admission (3) Acute and chronic respiratory failure with hypoxia: Code(s): J96.21 - Acute and chronic respiratory failure with hypoxia Status: Acute Assessment and Plan: This is better. She is now on only 2L of oxygen per nasal cannula. O2 sats 98% Blood gases have shown no CO2 retention. Pulmonary following (4) Anemia: Code(s): D64.9 - Anemia, unspecified Status: Acute Assessment and Plan: as noted by labs (on 05/18) PRBC transfusion per protocol hemoglobin is 8.1 today. The patient is on antibiotics so reason not to give iron. reticulocyte count 3.2 continue Epogen she may need this as an outpatient (5) Pneumonia: Code(s): J18.9 - Pneumonia, unspecified organism Status: Acute Assessment and Plan: as suggested by admission CXR on antibiotic therapy follow culture data (6) Acute exacerbation of CHF (congestive heart failure): Qualifiers: Heart failure type: diastolic Qualified Code(s): I50.33 - Acute on chronic diastolic (congestive) heart failure Code(s): I50.9 - Heart failure, unspecified Status: Acute Assessment and Plan: evidence of pulmonary edema on admission CXR elevated proBNP as well continue IV diuretics as long as she is responsive previous echo noted (on 04/17/23): LV dilatation with severe global systolic dysfunction, EF 30%, grade 1 diastolic dysfunction, no obvious valvular dysfunction although the quality of exam was very challenging, RVSP 21 mmHg. was on medical management with carvedilol, Lasix, isosorbide mononitrate, Entresto, spironolactone resume this when able (7) Hypertensive urgency: Code(s): I16.0 - Hypertensive urgency Status: Acute Assessment and Plan: systolic BP > 200s on admission on nitroglycerin gtt resume home/oral medications when able bp in the 160s. on carv 25 bid, clon patch 0.1, labetalol 200 bid. nifed 90 daily Nifedipine increased to 90mg. Phenytoin level is 8. her blood pressure is doing well on 90mg a day of nifedipine (8) Elevated troponin: Code(s): R77.8 - Other specified abnormalities of plasma proteins Status: Acute Assessment and Plan: suspect due to demand ischemia from acute respiratory failure follow trend of troponins Cardiology following Discussed case with Dr. Mai. Subjective Date/time seen: 05/21/23 09:27 Interval history: patient is alert. Smiling and in good spirits. Denies shortness of breath. Exam Narrative: General: Large Americ
[2023-05-21] MEDS: CEFDINIR 300 MG CAPSULE PO (09:31)
[2023-05-21] MEDS: PANTOPRAZOLE 40 MG TABLET PO (09:31)
[2023-05-21] MEDS: FUROSEMIDE 40 MG TABLET PO ×2 (09:31→17:06)
[2023-05-21] MEDS: AZITHROMYCIN 250 MG TABLET 500 MG PO (09:31)
[2023-05-21] MEDS: ATORVASTATIN 40 MG TABLET 80 MG PO (21:17)
[2023-05-22] VITALS (9 sets, daily range): BP systolic 128; BP diastolic 98; PULSE 73–78; RESP 19–21; TEMP 36.5; O2SAT 97–100
[2023-05-22] MEDS: ALBUTEROL SULFATE NEB 2.5 MG/3 ML INH INHALATION ×3 (03:15→12:05)
[2023-05-22] MEDS: IPRATROPIUM BR 0.02% INH SOLN 0.5 MG/2.5 ML VIAL INHALATION ×3 (03:15→12:05)
[2023-05-22] MEDS: BUDESONIDE RESPULE NEB 0.5 MG/2 ML AMP INHALATION (07:49)
[2023-05-22 08:28] LABS: Basophils Absolute Auto 0.1 K/mm3 (0.0-0.1); Basophils Percent Auto 0.6 % (0.2-1.2); Eosinophils Absolute Auto 0.3 K/mm3 (0-0.3); Eosinophils Percent Auto 3.6 % (0-4.4); Hematocrit 26.9 % (37.0-47.0); Hemoglobin 7.9 g/dL (12.0-15.0); Immature Granulocyte Absolute 0.08 K/mm3 (0.00-0.031); Lymphocytes Absolute Auto 1.78 K/mm3 (0.9-3.2); Lymphocytes Percent Auto 22.4 % (18.3-44.2); Mean Corpuscular HGB Conc 29.4 g/dl (32-36); Mean Corpuscular Hemoglobin 28.5 pg (26-34); Mean Corpuscular Volume 97.1 fl (80-100); Mean Platelet Volume 11.2 fl (7.4-10.4); Monocytes Absolute Auto 0.7 K/mm3 (0.1-0.6); Monocytes Percent Auto 8.7 % (2.6-8.5); Neutrophils Absolute Auto 5.1 K/mm3 (1.3-6.7); Neutrophils Percent Auto 63.7 % (45.5-73.1); Platelet Count Result 162 k/mm3 (150-375); Red Blood Count 2.77 M/mm3 (4.2-5.4); Red Cell Distribution Width 15.2 % (11.5-14.5)
[2023-05-22] MEDS: LABETALOL HCL 100 MG TABLET 200 MG PO ×2 (08:39→17:16)
[2023-05-22] MEDS: NIFEdipine 30 MG TAB.ER.24 90 MG PO (08:39)
[2023-05-22] MEDS: PANTOPRAZOLE 40 MG TABLET PO (08:40)
[2023-05-22] MEDS: carvediloL 25 MG TABLET PO (08:40)
[2023-05-22] MEDS: HEPARIN SODIUM 5,000 UNITS/ML VIAL 5000 UNITS SUB-Q (08:40)
[2023-05-22] MEDS: AZITHROMYCIN 250 MG TABLET 500 MG PO (08:40)
[2023-05-22] MEDS: ISOSORBIDE MONONITRATE 30 MG TAB.ER.24H PO (08:40)
[2023-05-22] MEDS: FUROSEMIDE 40 MG TABLET PO ×2 (08:40→17:16)
[2023-05-22] MEDS: ESCITALOPRAM OXALATE 10 MG TABLET PO (08:40)
[2023-05-22] MEDS: ASPIRIN 81 MG CHEWABLE TABLET PO (08:40)
[2023-05-22] MEDS: cloNIDine HCL 0.2 MG TABLET PO ×3 (08:40→17:16)
[2023-05-22] MEDS: CEFDINIR 300 MG CAPSULE PO (08:40)
[2023-05-22] MEDS: ERGOCALCIFEROL 50,000 UNITS CAPSULE 50000 UNITS PO (08:43)
[2023-05-22] MEDS: EPOETIN ALFA-EPBX 10,000 UNITS/ML VIAL 10000 UNITS SUB-Q (08:43)
[2023-05-22 09:01] LABS: Alanine Aminotransferase 25 U/L (6-35); Albumin Level 3.1 g/dL (3.5-5.1); Alkaline Phosphatase 101 U/L (38-126); Anion Gap 9 mmol/L (8-16); Aspartate Amino Transferase 19 U/L (14-36); Bilirubin,Total 0.2 mg/dL (0.2-1.3); Blood Urea Nitrogen 55 mg/dL (7-17); Calcium 7.9 mg/dL (8.4-10.2); Carbon Dioxide 22 mmol/L (22-30); Chloride 104 mmol/L (98-107); Estimated CRCL calculation 29 ml/min; Estimated Glomerular Filt Rate 19; Glucose 89 mg/dL (65-110); Magnesium 1.7 mg/dL (1.6-2.3); Phosphorus 6.4 mg/dL (2.5-4.5); Potassium 4.4 mmol/L (3.4-5.0); Sodium 135 mmol/L (137-145)
--- NOTE | 2023-05-22 09:15 | PM.PNPUL ---
Progress Note: A&P Assessment and Plan (1) Acute exacerbation of CHF (congestive heart failure): Qualifiers: Heart failure type: diastolic Qualified Code(s): I50.33 - Acute on chronic diastolic (congestive) heart failure Code(s): I50.9 - Heart failure, unspecified Status: Acute (2) Pneumonia: Code(s): J18.9 - Pneumonia, unspecified organism Status: Acute (3) Acute and chronic respiratory failure with hypoxia: Code(s): J96.21 - Acute and chronic respiratory failure with hypoxia Status: Acute Assessment and Plan: A 52-year-old female patient, with a medical history of morbid obesity, diabetes mellitus, chronic kidney disease, cognitive impairment, and documented congestive heart failure with a low ejection fraction (EF) in the range of 25-30% from a recent hospitalization, presented with a one-day history of escalating dyspnea. Initial chest radiography revealed bilateral infiltrates suggestive of pulmonary edema and a potential left lower lobe infiltrate, possibly indicative of pneumonia. Physical examination revealed crackles, with no signs of wheezing. The patient has been on BiPAP support since her admission to the ICU. Her respiratory status has significantly improved following treatment for congestive heart failure, with BiPAP support at night and as needed during the day. The patient is currently in a medical-surgical barr, utilizing supplemental oxygen during the day and BiPAP support at night. On physical examination, she continues to exhibit a few crackles at the bases, particularly in the left lower lobe. Chest imaging studies have demonstrated significant resolution of the bilateral pulmonary edema. The patient has also been treated with antibiotics for a potential left lower lobe pneumonia. A review of her previous laboratory data indicated no persistent hypercapnia, as evidenced by a non-chronically elevated total bicarbonate level. Elevated pCO2 levels noted during acute hospitalizations are likely related to pulmonary edema. Her most recent blood gases showed no evidence of daytime hypercapnia. The patient was discharged on BiPAP support during her previous hospitalization three weeks ago. She resides in a usp, and it is uncertain whether she is adhering to her BiPAP support. There is no previous sleep study. Given her morbid obesity, there is a possibility she may have sleep-disordered breathing. The management plan includes the continuation of BiPAP support and supplemental oxygen as ordered. An ApneaLink test will be conducted prior to her discharge home. . (4) Pulmonary infiltrates: Code(s): R91.8 - Other nonspecific abnormal finding of lung field Status: Acute Subjective Date/time seen: 05/22/23 09:15 Interval history: Patient transferred to medical-surgical brar. Currently on supplemental oxygen via nasal cannula. Reportedly using BiPAP support at night. She has no new respiratory symptoms. Patient is a poor historian probably related to her intellectual disability. Upon questioning she stated she is doing better. Review of Systems Review of Systems: All systems reviewed & are unremarkable except as noted in HPI and below Exam Narrative: GENERAL APPEARANCE: Well developed, well nourished, morbidly obese currently sitting up in bed while on supplemental oxygen via nasal cannula SKIN: Inspection of the skin reveals no rashes, ulcerations or petechiae. HEENT: Sclerae anicteric and conjunctivae pink and moist. Extraocular movements were intact and pupils were equal, round. NECK: Supple. There was no thyroid enlargement, and no tenderness, or masses were felt. LUNGS: Few crackles at bases posteriorly, no wheezing CARDIAC: There was a regular rate and rhythm without any murmurs, gallops, rubs. ABDOMEN: Soft and nontender. EXTREMITIES: No cyanosis, clubbing or edema. Above knee amputation right lower extremity NEUROLOGIC: Patient alert, ans
--- NOTE | 2023-05-22 10:16 | P.PNNP_ITS ---
Progress Note: A&P Assessment and Plan (1) ARMIN (acute kidney injury): Code(s): N17.9 - Acute kidney failure, unspecified Status: Acute Assessment and Plan: * noted on previous hospitalization here at [facility] in April 2023 * discharged with a creatinine of 3.7mg/dl * suspected etiology was ATN due to infection (COVID + pneumonia) and CHF exacerbation * evaluation during April 2023 admission noted: * renal ultrasound with medical renal disease (incomplete visualization of left kidney) * CPK okay * UA with blood and protein along with?granular casts * urine electrolytes never done * no peripheral eosinophilia or rash * serologies (GISELA, ANCA, dsDNA-Ab, antiGBM-ab, complements, and serm/urine immunofixation) were all negative * echo showed EF of only 30% with no pulmonary hypertension * creatinine a tad better today * on oral diuretic therapy * follow trend of repeat labs and UOP (2) Stage 3a chronic kidney disease: Code(s): N18.31 - Chronic kidney disease, stage 3a Status: Chronic Assessment and Plan: * creatinine was running around 1.4 - 1.5mg/dl in November 2021 * presumably secondary to hypertension and vascular disease as well as CHF * there may be a component of CKD progression on top of ARMIN/ARF from last hospital admission (3) Acute and chronic respiratory failure with hypoxia: Code(s): J96.21 - Acute and chronic respiratory failure with hypoxia Status: Acute Assessment and Plan: * clinical improvement noted * on 2L supplemental oxygen + BiPAP at night * Pulmonary following * continue supportive therapy (4) Anemia: Code(s): D64.9 - Anemia, unspecified Status: Acute Assessment and Plan: * as noted by labs (on 05/18) * PRBC transfusion per protocol * H/H relatively stable * on Epogen * she may need this as an outpatient (5) Pneumonia: Code(s): J18.9 - Pneumonia, unspecified organism Status: Acute Assessment and Plan: * as suggested by admission CXR * on antibiotic therapy * follow culture data (6) Acute exacerbation of CHF (congestive heart failure): Qualifiers: Heart failure type: diastolic Qualified Code(s): I50.33 - Acute on chronic diastolic (congestive) heart failure Code(s): I50.9 - Heart failure, unspecified Status: Acute Assessment and Plan: * evidence of pulmonary edema on admission CXR * elevated proBNP as well * switched to oral diuretics * previous echo noted (on 04/17/23): * LV dilatation with severe global systolic dysfunction, EF 30%, grade 1 diastolic dysfunction, no obvious valvular dysfunction although the quality of exam was very challenging, RVSP 21 mmHg. * was on medical management with carvedilol, Lasix, isosorbide mononitrate, Entresto, spironolactone * resume this when able (7) Hypertensive urgency: Code(s): I16.0 - Hypertensive urgency Status: Acute Assessment and Plan: * systolic BP > 200s on admission * was on nitroglycerin gtt * continue current BP medication regimen * systolic BP in the 120 - 130s * follow trend of hemodynamics (8) Elevated troponin: Code(s): R77.8 - Other specified abnormalities of plasma proteins Status: Acute Assessment and Plan: * suspect due to demand ischemia from acute respiratory failure * follow trend of troponins * Cardiology recommendations noted Will continue to follow. Subjective Date/time seen: 0
--- NOTE | 2023-05-22 10:16 | PM.PNNEP ---
Progress Note: A&P Assessment and Plan (1) ARMIN (acute kidney injury): Code(s): N17.9 - Acute kidney failure, unspecified Status: Acute Assessment and Plan: noted on previous hospitalization here at [facility] in April 2023 discharged with a creatinine of 3.7mg/dl suspected etiology was ATN due to infection (COVID + pneumonia) and CHF exacerbation evaluation during April 2023 admission noted: renal ultrasound with medical renal disease (incomplete visualization of left kidney) CPK okay UA with blood and protein along with?granular casts urine electrolytes never done no peripheral eosinophilia or rash serologies (GISELA, ANCA, dsDNA-Ab, antiGBM-ab, complements, and serm/urine immunofixation) were all negative echo showed EF of only 30% with no pulmonary hypertension creatinine a tad better today on oral diuretic therapy follow trend of repeat labs and UOP (2) Stage 3a chronic kidney disease: Code(s): N18.31 - Chronic kidney disease, stage 3a Status: Chronic Assessment and Plan: creatinine was running around 1.4 - 1.5mg/dl in November 2021 presumably secondary to hypertension and vascular disease as well as CHF there may be a component of CKD progression on top of ARMIN/ARF from last hospital admission (3) Acute and chronic respiratory failure with hypoxia: Code(s): J96.21 - Acute and chronic respiratory failure with hypoxia Status: Acute Assessment and Plan: clinical improvement noted on 2L supplemental oxygen + BiPAP at night Pulmonary following continue supportive therapy (4) Anemia: Code(s): D64.9 - Anemia, unspecified Status: Acute Assessment and Plan: as noted by labs (on 05/18) PRBC transfusion per protocol H/H relatively stable on Epogen she may need this as an outpatient (5) Pneumonia: Code(s): J18.9 - Pneumonia, unspecified organism Status: Acute Assessment and Plan: as suggested by admission CXR on antibiotic therapy follow culture data (6) Acute exacerbation of CHF (congestive heart failure): Qualifiers: Heart failure type: diastolic Qualified Code(s): I50.33 - Acute on chronic diastolic (congestive) heart failure Code(s): I50.9 - Heart failure, unspecified Status: Acute Assessment and Plan: evidence of pulmonary edema on admission CXR elevated proBNP as well switched to oral diuretics previous echo noted (on 12/11/23): LV dilatation with severe global systolic dysfunction, EF 30%, grade 1 diastolic dysfunction, no obvious valvular dysfunction although the quality of exam was very challenging, RVSP 21 mmHg. was on medical management with carvedilol, Lasix, isosorbide mononitrate, Entresto, spironolactone resume this when able (7) Hypertensive urgency: Code(s): I16.0 - Hypertensive urgency Status: Acute Assessment and Plan: systolic BP > 200s on admission was on nitroglycerin gtt continue current BP medication regimen systolic BP in the 120 - 130s follow trend of hemodynamics (8) Elevated troponin: Code(s): R77.8 - Other specified abnormalities of plasma proteins Status: Acute Assessment and Plan: suspect due to demand ischemia from acute respiratory failure follow trend of troponins Cardiology recommendations noted Will continue to follow. Subjective Date/time seen: 05/22/23 10:16 Interval history: Follow-up for acute kidney injury/acute renal failure on chronic kidney disease versus chronic kidney disease. Chart reviewed since last seen -- out of ICU with significant improvement in breathing/respiratory status; using BiPAP therapy at night and supplemental oxygen during the day; no apparent distress noted/voiced at the time of my visit. Exam Narrative: General: Large female in NAD Heart: normal S1 and S2; no rub Lungs: breath sounds clear bilate
--- NOTE | 2023-05-22 12:17 | PM.DS ---
DS: Admitting Diagnosis Discharge Date 05/22/2023 Admitting Diagnosis Shortness of breath DS: Discharge Diagnosis Discharge Diagnosis (1) Acute and chronic respiratory failure with hypoxia: Code(s): J96.21 - Acute and chronic respiratory failure with hypoxia Status: Acute (2) Pneumonia: Code(s): J18.9 - Pneumonia, unspecified organism Status: Acute (3) Acute exacerbation of CHF (congestive heart failure): Qualifiers: Heart failure type: diastolic Qualified Code(s): I50.33 - Acute on chronic diastolic (congestive) heart failure Code(s): I50.9 - Heart failure, unspecified Status: Acute (4) CKD (chronic kidney disease) stage 3, GFR 30-59 ml/min: Qualifiers: Chronic kidney disease stage 3 subtype: stage 3a (GFR 45-59) Qualified Code(s): N18.31 - Chronic kidney disease, stage 3a Code(s): N18.30 - Chronic kidney disease, stage 3 unspecified Status: Acute (5) Hypertensive urgency: Code(s): I16.0 - Hypertensive urgency Status: Acute (6) Elevated troponin: Code(s): R77.8 - Other specified abnormalities of plasma proteins Status: Acute (7) Seizure: Code(s): R56.9 - Unspecified convulsions Status: Acute (8) Anemia: Code(s): D64.9 - Anemia, unspecified Status: Acute DS: Summary Hospital Course Hospital Course: 52-year-old female with history of hypertension COPD and home oxygen morbid obesity CKD stage IIIB 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 Upon EMS arrival patient was tachypneic and rate of 40 and in moderate respiratory distress was placed on CPAP was transferred to the ER.? She received IV Solu-Medrol in route to the hospital.? She has underlying history of congestive heart failure and CK she was switched to BiPAP in the ER.? Receive some Ativan for anxiety thyroid evaluation showed mild leukocytosis of 10.9 anemia of 7.4 creatinine of 3.4 acted was normal.? [place] 14879 troponin was elevated at 1.03 influenza RSV and COVID is negative.? ABG 7.34/39/452/20.? EKG with tachycardia with nonspecific ST-T changes.? She was admitted to the ICU.? Pulmonary and Cardiology and Nephrology consultation was obtained.? She has systolic dysfunction with EF of 25-30% and also diagnosis COPD chest x-ray with evidence of bilateral infiltrates with pulmonary edema and questionable left lower lobe infiltrate.? She had been on a BiPAP at night and p.r.n. during daytime.? She was also hypertensive and was placed on nitroglycerin drip in the ICU has resumed her home doses of medications.? Elevated troponin on admission was related to demand ischemia from respiratory failure.? Cardiology had followed the patient.? She also received transfusion during the hospital stay H&H currently stable.? On ceftriaxone and azithromycin Lasix 40 b.i.d. along with vancomycin.? Blood culture negative to date MRSA swab is negative Chest x-ray with mild diffuse lung disease consistent with pneumonia or pulmonary edema.? Stable left basilar airspace opacity consistent with atelectasis versus pneumonia.? Antibiotics were switched to oral.? Vancomycin IV to discontinue as MRSA swab is negative Need BiPAP at night at discharge and p.r.n. during daytime function stable on oral Lasix now. This was reiterated with nursing facility prior to the discharge Time Spent with Patient Time attestation: Total time spent providing and/or coordinating discharge services: 45 minutes Exam Narrative: General: Patient awake and conversant not in acute distress HEENT:? Pupils equal and reactive, on nasal cannula Neck:? Thick and short Respiratory:? Coarse breath sounds bilaterally, decreased at bases, no wheezing Cardiac:? S1-S2 is normal, sinus tachycardia Abdomen:? Soft, nondistended, nontender, morbidly obese, hypoactive bowel sounds Extremities:? Right leg above-knee amputation, stump looks good without any evidence o
[2023-05-22] MEDS: IPRATROPIUM 0.5 MG/ALBUTEROL SULFATE 2.5 MG AMPUL.NEB 3 ML INHALATION (16:49)
== END 2023-05-22 19:05 | DRG 139 ==
LOC: ANHED 11:40 → ANHICU 12:09 → ANH3MEDSUR 05-21 18:39
PROVIDERS: Family Medicine; Internal Medicine; Internal Medicine Nephrology; Admitting Provider Student in an Organized Health Care Education/Training Program; Emergency Provider Family Medicine; PCP Internal Medicine; Visit Provider Internal Medicine
DX: J18.9 Pneumonia, unspecified organism (principal); Z28.21 Immunization not carried out because of patient refusal; Z20.822 Contact with and (suspected) exposure to COVID-19; I13.0 Hypertensive heart and chronic kidney disease with heart failure and stage 1 through stage 4 chronic kidney disease, or unspecified chronic kidney disease; N18.32 Chronic kidney disease, stage 3b; I50.33 Acute on chronic diastolic (congestive) heart failure; Z99.81 Dependence on supplemental oxygen; E66.01 Morbid (severe) obesity due to excess calories; Z68.43 Body mass index [BMI] 50.0-59.9, adult; Z89.611 Acquired absence of right leg above knee; K21.9 Gastro-esophageal reflux disease without esophagitis; E78.5 Hyperlipidemia, unspecified; F79 Unspecified intellectual disabilities; D63.1 Anemia in chronic kidney disease; E55.9 Vitamin D deficiency, unspecified; Z86.73 Personal history of transient ischemic attack (TIA), and cerebral infarction without residual deficits; J96.21 Acute and chronic respiratory failure with hypoxia; I16.0 Hypertensive urgency; R56.9 Unspecified convulsions; N17.9 Acute kidney failure, unspecified; I21.A1 Myocardial infarction type 2; J44.0 Chronic obstructive pulmonary disease with (acute) lower respiratory infection
CPT/HCPCS: 36415; 36430; 36600; 71045; 80053; 80185; 80202; 81001; 82274; 82375; 82607; 82746; 82805; 83050; 83540; 83550; 83605; 83735; 83880; 84100; 84484; 85025; 85027; 85046; 85610; 85730; 86850; 86900; 86901; 86923; 87040; 87081; 87637; 87641; 93005; 94002; 94003; 94640; 96372; 96374; 99285; A9270; C9113; J0360; J0456; J0696; J1165; J1644; J1940; J2060; J2305; J3370; J3475; J7050; P9016; Q5105

== ENCOUNTER 2023-05-27 07:37 | Inpatient (IN) | payer BC, SELFPAY ==
[2023-05-27] VITALS (57 sets, daily range): BP systolic 126–190; BP diastolic 71–119; PULSE 76–138; RESP 16–36; TEMP 36.1–37.5; O2SAT 90–100; BMI 55.0
--- NOTE | ~2023-05-27 | XR_ITS ---
Portable chest x-ray Comparison: 05/28/2023 Clinical History: Tube placement Findings: Endotracheal tube, NG tube, and right-sided central venous line are in satisfactory positi ons. There is retrocardiac consolidation with mild right basilar haziness. Cardiomediastinal silhoue tte is stable. Bones and soft tissues are unremarkable. Impression: Bibasilar airspace disease, left worse than right. Correlate for pulmonary edema/atelectasis versus p neumonia. Support tubes, as above. Reviewed, dictated and finalized at location . OR TREASURY ANALYST Impression: Bibasilar airspace disease, left worse than right. Correlate for pulmonary eli a/atelectasis versus pneumonia. Support tubes, as above.
--- NOTE | ~2023-05-27 | US_ITS ---
US arterial ankle brachial ind INDICATION: Evaluate lower extremity ankle-brachial index TECHNIQUE: Segmental pressures and plethysmographic and Doppler waveforms of the brachial and lower e xtremity arteries were obtained. COMPARISON: None. FINDINGS: Right and left brachial artery pressures of 125 mm Hg and 143 mm Hg, respectively, are concordant (no rmal difference <= 30 mmHg). The left ankle-brachial index (DOUG) is 0.34 (normal >= 0.9-1.0). The right great toe-brachial index ( TBI) is 0.34 (normal >= 0.60). The right ankle and toe brachial indices are not evaluated. IMPRESSION: 1. Diminished left ankle and toe brachial indices consistent with severe peripheral arterial disease. Reviewed, dictated and finalized at location L. SE COORDINATOR IMPRESSION: 1. Diminished left ankle and toe brachial indices consistent with severe periph eral arterial disease.
--- NOTE | ~2023-05-27 | XR_ITS ---
Portable chest x-ray Comparison: 05/30/2023 Clinical History: Tube placement Findings: Endotracheal tube, NG tube, and right IJ line are in satisfactory positions. There is retr ocardiac consolidation. Cardiomediastinal silhouette is stable. Bones and soft tissues are unremarka ble. Impression: Support tubes, as above. Retrocardiac consolidation could reflect atelectasis/edema versus left lower lobe pneumonia. Correlat e clinically. Reviewed, dictated and finalized at location . GER BASKETBALL Impression: Support tubes, as above. Retrocardiac consolidation could reflect atelectasis/edema versus left lower lo be pneumonia. Correlate clinically.
--- NOTE | ~2023-05-27 | XR_ITS ---
Portable chest x-ray Comparison: 05/31/2023 Clinical History: Pulmonary edema Findings: Endotracheal tube, NG tube, and right IJ line are in place. There is hazy bibasilar airspa ce disease and probable small left pleural effusion. Cardiomediastinal silhouette is stable. Bones a nd soft tissues are unremarkable. Impression: Probable hazy bibasilar pulmonary edema pattern, with small left pleural effusion. Correlate clinical ly for pneumonia. Support tubes, as above. Reviewed, dictated and finalized at location . HIC DESIGN ASSISTANT Impression: Probable hazy bibasilar pulmonary edema pattern, with small left pleural effusi on. Correlate clinically for pneumonia. Support tubes, as above.
--- NOTE | ~2023-05-27 | XR_ITS ---
EXAMINATION: XR chest ET placement Exam Date/Time: 05/27/2023 13:35 DUMPER BULK SYSTEM HISTORY: intubation Comparison: Same date at 8:53 AM. RESULT: Lines, tubes, and devices: Endotracheal tube terminates at the deepti. Subdiaphragmatic NG tube. Lungs and pleura: Worsening diffuse bilateral airspace disease, with sparing of the left upper lobe. Dense opacity now silhouettes the left hemidiaphragm shadow. Cardiomediastinal silhouette: Stable. Other: No acute osseous or upper abdominal finding. IMPRESSION: Endotracheal tube terminates at the deepti, consider retracting 4 cm. Worsening diffuse bilateral airspace disease, likely representing worsening edema and worsening left basilar atelectasis/consolidation. Infection is not excluded. Reviewed, dictated and finalized at location K. ER BULK SYSTEM IMPRESSION: Endotracheal tube terminates at the deepti, consider retracting 4 cm. Worsening diffuse bilateral airspace disease, likely representing worsening lizeth ma and worsening left basilar atelectasis/consolidation. Infection is not exclu ded.
--- NOTE | ~2023-05-27 | XR_ITS ---
EXAM: XR abdomen gastric tube insert DATE: 05/27/2023 13:43 HISTORY: og tube insertion . COMPARISON: 04/15/2023. FINDINGS: Worsening bibasilar pulmonary opacities. NG tube tip and side port project over the stomac h. No dilated bowel detected. IMPRESSION: NG tube, in good position. Reviewed, dictated and finalized at location K. TIVE SPECIALIST IMPRESSION: NG tube, in good position.
--- NOTE | ~2023-05-27 | XR_ITS ---
XR chest 1V portable DATE: 05/27/2023 09:00 INDICATION: Dyspnea TECHNIQUE: Portable upright AP chest on 06/01 2023 at 0853 COMPARISON: 05/22/2023 portable AP chest FINDINGS: There is extensive diffuse bilateral pulmonary infiltrate and pulmonary vascular prominence , suggesting pulmonary edema. Pneumonia is not excluded. Cardiac magnet. Aortic arch calcification. Small pleural effusions may be present. No pneumothorax. IMPRESSION: Cardiomegaly, extensive bilateral pulmonary infiltrates, suggesting congestive heart fail ure, pulmonary edema, increased in severity since 05/22/2023 Reviewed, dictated and finalized at location A. BAG CURER IMPRESSION: Cardiomegaly, extensive bilateral pulmonary infiltrates, suggesting congestive heart failure, pulmonary edema, increased in severity since 05/22/19 24
--- NOTE | ~2023-05-27 | XR_ITS ---
Portable chest x-ray Comparison: 05/29/2023 Clinical History: Intubation Findings: Endotracheal tube, NG tube, and right IJ line are in satisfactory positions. Probable smal l left pleural effusion with mild bibasilar haziness. Cardiomediastinal silhouette is stable. Bones and soft tissues are unremarkable. Impression: Probable small left pleural effusion with bibasilar airspace disease, left worse than right. Correlat e for bibasilar pulmonary edema/atelectasis versus pneumonia. Support tubes, as above. Reviewed, dictated and finalized at location . OSOPHY FACULTY Impression: Probable small left pleural effusion with bibasilar airspace disease, left wors e than right. Correlate for bibasilar pulmonary edema/atelectasis versus pneumo carly. Support tubes, as above.
--- NOTE | ~2023-05-27 | XR_ITS ---
XR chest 1V portable DATE: 05/28/2023 05:44 INDICATION: Intubation TECHNIQUE: Portable AP chest on 05/28/2023 at 0523 hours COMPARISON: 05/27/2023 portable AP chest at 1422 hours FINDINGS: Diffuse bilateral pulmonary infiltrates, moderately improved since 05/27/2023. Cardiomegaly. Aortic arch calcification. ET tube in satisfactory position 2.5 cm above deepti. NG tube in stomach. Right internal jugular central venous catheter tip overlies the upper right atrium. No pneumothorax. IMPRESSION: Moderate improvement of bilateral pulmonary infiltrates since 05/27/2023 Reviewed, dictated and finalized at location A. BAG PARTS CUTTER IMPRESSION: Moderate improvement of bilateral pulmonary infiltrates since 2023
--- NOTE | ~2023-05-27 | XR_ITS ---
XR chest 1V portable 06/03/2023 05:59 Indication: Shortness of breath Procedure: AP portable chest Comparison: Comparison to multiple prior studies sequentially, with oldest reviewed study dated 05/29. Findings: Right IJ central line tip in the SVC. Cardiomegaly. Mild interstitial edema unchanged. No s ignificant effusion. No pneumothorax. No acute osseous abnormality. Impression: 1: Cardiomegaly with stable mild interstitial edema. Reviewed, dictated and finalized at location A. CLE WASHER Impression: 1: Cardiomegaly with stable mild interstitial edema.
--- NOTE | ~2023-05-27 | XR_ITS ---
EXAMINATION: XR chest port-a-cath/central Exam Date/Time: 05/27/2023 14:20 HOUSEKEEPING SUPERVISOR HOTEL HISTORY: central line placement Comparison: Same date at 1:20 PM. RESULT: Lines, tubes, and devices: New right IJ central line terminating in the distal SVC. The endotracheal tube has been retracted now terminating 3.2 cm above the deepti. Subdiaphragmatic NG tube. Lungs and pleura: Slight interval improvement in the diffuse pulmonary opacities. Slightly decreased left basilar atelectasis/consolidation. Cardiomediastinal silhouette: Stable. Other: No acute osseous or upper abdominal finding. IMPRESSION: New right IJ central line which appears to be in good position terminating in the distal SVC. Interval endotracheal tube retraction, now in good position. Slight interval improvement in the diffuse bilateral pulmonary edema. Very slight improved aeration o f the left lung base. Reviewed, dictated and finalized at location K. EKEEPING SUPERVISOR HOTEL IMPRESSION: New right IJ central line which appears to be in good position terminating in t he distal SVC. Interval endotracheal tube retraction, now in good position. Slight interval improvement in the diffuse bilateral pulmonary edema. Very slig ht improved aeration of the left lung base.
--- NOTE | 2023-05-27 07:56 | ECG_ITS ---
Measurements Intervals [place] Rate: 103 P: 94 VA: 189 QRS: 33 QRSD: 136 T: 175 QT: 370 QTc: 485 Interpretive Statements SINUS TACHYCARDIA INTRAVENTRICULAR CONDUCTION DELAY DELAYED PRECORDIAL R/S TRANSITION VOLTAGE CRITERIA FOR LVH BORDERLINE ST-T WAVE ABNORMALITY- INF/HIGH LAT LEADS BASELINE WANDER- I, II, II, AVR, AVL, AVF, V6 BORDERLINE ECG COMPARED TO ECG 05/17/2023 08:24:01 NO SIGNIFICANT CHANGES Electronically Signed On 05-27-2023 8:28:17 HAND GLOVE CLEANER by Yasir Thomas D.O.
[2023-05-27 08:16] LABS: Alveolar/Arterial O2 Gradient 96.5 mmHg; Base Excess ABG -0.5 mEq/l (+/-2.0); Fractional Inspired Oxygen 30 %; HCO3 ABG 25.4 mEq/l (22.0-26.0); Oxygen Saturation ABG 90.4 % (95.0-100.0); Oxyhemoglobin 89.6 % THb (90.0-100.0); PCO2 ABG 47.3 mmHg (35.0-45.0); PO2 ABG 61.8 mmHg (80.0-100.0); PO2 FiO2 Ratio Arterial Blood 2.06 %; Total Hemoglobin 9.5 g/dL (12.0-18.0); pH ABG 7.347 (7.350-7.450)
[2023-05-27 08:17] LABS: Device NON-INVASIVE VENT; Modified Allen's Test Pass; Site Drawn LEFT RADIAL
[2023-05-27 08:18] LABS: Non-Invasive Vent Rate 4 /MIN
[2023-05-27 08:19] LABS: Non-Invasive Expiratory Pressure 7 CMH2O; Non-Invasive Inspiratory Pressure 12 CMH2O
[2023-05-27 08:55] LABS: Basophils Absolute Auto 0.1 K/mm3 (0.0-0.1); Basophils Percent Auto 0.6 % (0.2-1.2); Eosinophils Absolute Auto 0.2 K/mm3 (0-0.3); Eosinophils Percent Auto 2.4 % (0-4.4); Hematocrit 30.5 % (37.0-47.0); Hemoglobin 8.9 g/dL (12.0-15.0); Immature Granulocyte Absolute 0.08 K/mm3 (0.00-0.031); Immature Granulocyte Percent A 0.8 % (0-0.5); Lymphocytes Percent Auto 12.7 % (18.3-44.2); Mean Corpuscular HGB Conc 29.2 g/dl (32-36); Mean Corpuscular Hemoglobin 28.7 pg (26-34); Mean Corpuscular Volume 98.4 fl (80-100); Mean Platelet Volume 10.5 fl (7.4-10.4); Monocytes Absolute Auto 0.4 K/mm3 (0.1-0.6); Monocytes Percent Auto 4.7 % (2.6-8.5); Neutrophils Absolute Auto 7.4 K/mm3 (1.3-6.7); Neutrophils Percent Auto 78.8 % (45.5-73.1); Platelet Count Result 215 k/mm3 (150-375); Red Cell Distribution Width 15.8 % (11.5-14.5); White Blood Count 9.4 K/mm3 (4.5-10.0)
[2023-05-27 09:07] LABS: Alanine Aminotransferase 21 U/L (6-35); Albumin Level 3.8 g/dL (3.5-5.1); Alkaline Phosphatase 122 U/L (38-126); Anion Gap 10 mmol/L (8-16); Aspartate Amino Transferase 21 U/L (14-36); Bilirubin,Total 0.4 mg/dL (0.2-1.3); Blood Urea Nitrogen 48 mg/dL (7-17); Calcium 8.8 mg/dL (8.4-10.2); Carbon Dioxide 24 mmol/L (22-30); Chloride 112 mmol/L (98-107); Estimated CRCL calculation 30 ml/min; Estimated Glomerular Filt Rate 19; Glucose 116 mg/dL (65-110); Magnesium 1.9 mg/dL (1.6-2.3); Potassium 4.6 mmol/L (3.4-5.0); Sodium 146 mmol/L (137-145)
[2023-05-27 09:08] LABS: Lactic Acid Reflex 1.2 mmol/L (0.7-2.0)
[2023-05-27 09:10] LABS: Platelet Estimate Adequate (Adequate)
[2023-05-27 09:11] LABS: Anisocytosis 1+ (NORMAL); Hypochromasia 1+ (NORMAL); Ovalocytes 1+ (NORMAL); Schistocytes None Seen (NORMAL)
[2023-05-27] MEDS: FUROSEMIDE INJ 40 MG/4 ML VIAL IV PUSH ×3 (09:12→21:22)
[2023-05-27 09:20] LABS: NT Pro B Type Natriuretic Pept 15200 pg/mL (19.9-100); Troponin I 0.048 ng/mL (0.000-0.034)
[2023-05-27 09:27] LABS: Influenza A QL RT-PCR Negative (Negative); Influenza B QL RT-PCR Negative (Negative); RSV RNA, RT-PCR Negative (Negative); SARS-CoV-2 RNA PCR Negative (Negative)
--- NOTE | 2023-05-27 10:55 | ED.SOB ---
HPI - SOB/Dyspnea General Chief Complaint: Shortness of Breath/Dyspnea Stated Complaint: RESP DISTRESS History of Present Illness HPI Narrative: Patient with recent admission here requiring intubation for CHF exacerbation Presents here with difficulty breathing, per EMS when they arrived she was saturating 70, they tried non-rebreather and got her up to the 80s, and then put her on CPAP which point she immediately improved with respiration and oxygen 97%. Related Data Home Medications Medication Instructions Recorded Confirmed acetaminophen 325 mg tablet 650 mg PO Q6H PRN Pain (Scale 08/26/21 05/17/23 (Tylenol) Score 1-3) aspirin 81 mg chewable tablet 81 mg PO DAILY 08/26/21 05/17/23 (Aspirin Childrens) atorvastatin 80 mg tablet (Lipitor) 80 mg PO HS 08/26/21 05/17/23 benzonatate 200 mg capsule 200 mg PO Q8H PRN Cough 08/26/21 05/17/23 calcium carb-vit D3-minerals 600 2 tablet PO DAILY 08/26/21 05/17/23 mg calcium-400 unit tablet clonidine HCl 0.2 mg tablet 0.2 mg PO TID 08/26/21 05/17/23 ergocalciferol (vitamin D2) 1,250 50,000 unit PO WEEKLY 08/26/21 05/17/23 mcg (50,000 unit) capsule (Vitamin D2) ferrous sulfate 325 mg (65 mg 325 mg PO BID 08/26/21 05/17/23 iron) tablet isosorbide mononitrate 30 mg 30 mg PO DAILY 08/26/21 05/17/23 tablet,extended release 24 hr phenytoin 100 mg/4 mL oral 200 mg PO DAILY 08/26/21 05/17/23 suspension escitalopram oxalate 10 mg tablet 1 tablet PO DAILY 10/30/21 05/17/23 phenytoin 100 mg/4 mL oral 200 mg PO QPM 10/30/21 05/17/23 suspension spironolactone 25 mg tablet 1 tablet PO DAILY 10/30/21 05/17/23 labetalol 200 mg tablet 200 mg PO BID 04/15/23 05/17/23 Allergies Allergy/AdvReac Type Severity Reaction Status Date / Time No Known Allergies Allergy Verified 11/22/21 16:08 Review of Systems Review of Systems: CONST: No fever. HEENT: No sore throat C/V: No chest pain RESP: short of breath GI: No abdominal pain : No dysuria. M/S: No joint pain. SKIN: No rash. NEURO: [No headache or focal numbness or weakness] PSYCH: [No depression] [facility] Past Medical History Medical History Asthma-COPD overlap syndrome Cerebrovascular accident Chronic kidney disease Congestive heart failure Echocardiogram in October 2021 showed left ventricular hypertrophy with moderate left ventricular dilation and significant systolic dysfunction with an EF estimated 25 to 30%, grade 1 diastolic dysfunction, and mild right ventricular enlargement with biatrial dilation. Gastroesophageal reflux disease Hyperlipidemia Hypertension Intellectual disability Iron deficiency anemia Seizure Vitamin D deficiency Surgical History Surgical History History of right above knee amputation Family History Family History Father Congestive heart failure Hypertension Mother Congestive heart failure Hypertension Social History Social History Social History: Surrogate decision maker: Laxmi Marrero, aunt. Code status: Full code. Smoking packs per day: 1 Smoking cigarettes per day: 20.0 Years smoked: 20 Smoking pack-years: 20.00 Smoking status: Unknown if ever smoked Alcohol intake: unknown Substance use: unknown Substance use type: does not use Do You Feel Safe in your Home?: Yes Lack of Transportation: No Lack of Food: Never True Current Housing: I Have Housing Concerned About Future Housing: No Difficulty Paying Gas/Electric Bills: No Difficulty Paying for Meds: No Currently Unemployed: No Education: High School Diploma/GED Difficulty w/ Childcare or Family Care: No Additional living arrangements comments: Resident at [facility] [place]. Additional occupation/education comments: Disabled.
--- NOTE | 2023-05-27 11:01 | ADMGEN ---
This patient, Mirela Preston, was admitted to Intensive Care Unit-2. Patient/family oriented to hospital policies and general routines including ID bracelet, bed and alarms, visiting hours, pain management, procedures, bathroom and other care routines, personal items, smoking policy, room service/diet, and visiting hours. Information on how to activate the Rapid Response Team has been discussed. Patient/Family are encouraged to report perceived risks to care and to ask questions if they do not understand what they are told or what they should do.
--- NOTE | 2023-05-27 12:46 | PC.NURSE ---
1230: Pt on bipap with RR 40, HR 131, pt grunting attempting to pull bipap mask off. Charge Nurse, ANTELMO Walsh, and RT Randi made aware. Dr. Carroll, and VANITA Yi notified. 1240:Dr. Carroll and VANITA Yi at bedside. Pt transferred to ICU via bed on bipap.
[2023-05-27] MEDS: MIDAZOLAM HCL (*CRX) 2 MG/2 ML VIAL 4 MG IV PUSH (13:16)
[2023-05-27] MEDS: ETOMIDATE 20 MG/10 ML AMPUL IV PUSH (13:16)
[2023-05-27] MEDS: ROCURONIUM BROMIDE 50 MG/5 ML VIAL IV PUSH ×2 (13:17→14:10)
--- NOTE | 2023-05-27 13:17 | WPDCNINT ---
Assessment and Plan Assessment and plan (1) Acute and chronic respiratory failure with hypoxia: Code(s): J96.21 - Acute and chronic respiratory failure with hypoxia Status: Acute Assessment and Plan: Chest x-ray on presentation IMPRESSION: Cardiomegaly, extensive bilateral pulmonary infiltrates, suggesting congestive heart failure, pulmonary edema, increased in severity since 05/22/2023? WBC normal afebrile. Respiratory secretions clear watery during intubation patient initially improved with BiPAP in the ER but later deteriorated on the floor Intubated now emergently in ICU and placed on mechanical ventilation Vent settings reviewed Will repeat chest x-ray and check ABG Lasix IV Check procalcitonin PCR for influenza RSV and COVID were negative (2) Acute exacerbation of CHF (congestive heart failure): Code(s): I50.9 - Heart failure, unspecified Status: Acute Assessment and Plan: Most recent echocardiogram in April 2023 Summary ? 1. Technically difficult exam because of obesity/definity contrast injected to improve visualization. ? 2. Left ventricular dilation with severe global systolic dysfunction ejection fraction of 30%. ? 3. Diastolic noncompliance. ? 4. Left atrial enlarged. ? 5. No obvious valve dysfunction although quality of the exam is very challenging. Patient will be given Lasix volume overload (3) CKD (chronic kidney disease) stage 3, GFR 30-59 ml/min: Qualifiers: Chronic kidney disease stage 3 subtype: stage 3a (GFR 45-59) Qualified Code(s): N18.31 - Chronic kidney disease, stage 3a Code(s): N18.30 - Chronic kidney disease, stage 3 unspecified Status: Acute Assessment and Plan: Patient has chronic kidney disease with recent acute kidney injury which was managed medically and did not require hemodialysis. She was discharged with creatinine 3.2 which is stable Patient does appear to be volume overloaded and will be given diuretics. Nephrology will be reconsulted On past admission patient has seen at risk of requiring RESTAURANT HOURLY TEAM MEMBER but improved with medical therapy Monitor urine output electrolytes and creatinine (4) Asthma-COPD overlap syndrome: Code(s): J44.9 - Chronic obstructive pulmonary disease, unspecified Status: Acute Assessment and Plan: Bronchodilators (5) Pulmonary edema: Code(s): J81.1 - Chronic pulmonary edema Status: Acute Assessment and Plan: See above (6) Elevated troponin: Code(s): R77.8 - Other specified abnormalities of plasma proteins Status: Acute Assessment and Plan: Patient has always had mildly elevated troponin level and has been evaluated by Cardiology in the past. Recent echo reviewed Continue serial troponin Continue aspirin and statin Beta-josé if blood pressure allows (7) Hypertension: Code(s): I10 - Essential (primary) hypertension Status: Acute Assessment and Plan: Blood pressure medications on hold at this time since patient is now intubated and sedated Depending on her blood pressure do start antihypertensive medication (8) Seizure: Code(s): R56.9 - Unspecified convulsions Status: Acute Assessment and Plan: Continue phenytoin (9) Venous insufficiency: Code(s): I87.2 - Venous insufficiency (chronic) (peripheral) Status: Acute Assessment and Plan: Patient has poor IV access and is going to need multiple IV infusions. Central venous catheter placed after obtaining consent from patient's art and POA Plan DVT prophylaxis -Lovenox Stress ulcer prophylaxis -Protonix Nutrition - npo Code Status - Full Code Total Critical Care Time - 60 minutes Due to a high probability of clinically significant, life threatening deterioration, the patient required my highest level of preparedness to intervene emergently and I personally spent this critical care time directly and personally managing the patient. Th
--- NOTE | 2023-05-27 13:25 | PC.NURSE ---
Addendum entered by Corinne Gayle RN 05/27/23 13:53: This patient, Mirela Preston, was transferred to ICU2 on 05/27/23 at 1258. Personal belongings sent with patient. Report given to ANTELMO Garcia. Appropriate documentation sent with patient. Original Note: This patient, Mirela Preston, was transferred to ICU2 on 05/27/23 at 1325. Personal belongings sent with patient. Report given to ANTELMO Garcia. Appropriate documentation sent with patient.
--- NOTE | 2023-05-27 13:25 | PM.IMHP ---
H&P: HPI History of Present Illness Date/Time: 05/27/23 13:25 Chief Complaint: SOB Narrative: 52 y/o F presents here with shortness of breath with PMH of asthma/COPD, CVA, CKD, CHF (last EF 25-30%), GERD, HTN, HLD, intellectual disability, seizures, and vitamin D deficiency. Patient presents here with shortness of breath and hypoxia from [facility] EMS. At EMS arrival to the facility patient's O2 saturation was 70%. Trialed on NRB with only modest increase in O2 sat to 80%. Subsequently placed on CPAP with immediate improvement in sat to 97%. Upon arrival to the ED US demonstrated b lines and CXR showed cardiomegaly, extensive bilateral pulmonary infiltrates, suggested of CHF, pulmonary edema, increased in severity since 05/22/2023. The patient had two recent admissions for similar presentations on 04/15-04/30 and 05/17-05/22. Admission in Apr, patient required intubation. Additional workup showed no leukocytosis stable anemia with hemoglobin 8.9, hypernatremia with sodium of 146, stable CKD with creatinine of 3.2, blood glucose 116, troponin 0.048, BNP 87301 (reduced compared to prior - 55855) and viral PCR negative. Per ED report, patient improving on BiPAP and respiratory effort reduced. Shortly after arrival to IMU, patient became acutely distressed i.e. grunting, accessory muscle use, and tachypnea secondary to bedside staff adjusting patient in the bed/settling her in. Patient then transferred to the ICU due to high risk for intubation. Patient intubated shortly thereafter by dry goods clerk and central line being placed. Review of Systems Review of Systems: All systems reviewed & are unremarkable except as noted in HPI and below [facility] Past Medical History Medical History (Updated 05/27/23 @ 15:41 by Kassidy Mora APRN) Asthma-COPD overlap syndrome Cerebrovascular accident Chronic kidney disease Congestive heart failure Echocardiogram in Apr showed left ventricular dilation with severe global systolic dysfunction with EF of 30%, diastolic noncompliance, left atrial enlarged, no obvious valve dysfunction however somewhat limited due to technically difficult exam due to body habitus. Gastroesophageal reflux disease Hyperlipidemia Hypertension Intellectual disability Iron deficiency anemia Seizure Vitamin D deficiency Surgical History Surgical History History of right above knee amputation Family History Family History Father Congestive heart failure Hypertension Mother Congestive heart failure Hypertension Social History Social History Social History: Surrogate decision maker: Laxmi Marrero, aunt. Code status: Full code. Smoking packs per day: 1 Smoking cigarettes per day: 20.0 Years smoked: 20 Smoking pack-years: 20.00 Smoking status: Unknown if ever smoked Alcohol intake: unknown Substance use: unknown Substance use type: does not use Do You Feel Safe in your Home?: Yes Lack of Transportation: No Lack of Food: Never True Current Housing: I Have Housing Concerned About Future Housing: No Difficulty Paying Gas/Electric Bills: No Difficulty Paying for Meds: No Currently Unemployed: No Education: High School Diploma/GED Difficulty w/ Childcare or Family Care: No Additional living arrangements comments: Resident at [facility] [place]. Additional occupation/education comments: Disabled. Spiritual care concerns: No Meds Home Medications and Allergies Home Medications Medication Instructions Recorded Confirmed Type acetaminophen 325 mg tablet 650 mg PO Q6H PRN Pain (Scale 08/26/21 05/27/23 History (Tylenol) Score 1-3) aspirin 81 mg chewable tablet 81 mg PO DAILY 08/26/21 05/27/23 History (Aspirin Childrens) atorvastatin 80 mg tabl
[2023-05-27 13:33] LABS: Triglycerides 143 mg/dL (<150)
[2023-05-27] MEDS: PROPOFOL IV EMULSION 100 ML 24.3 MG IV CONT (13:36)
[2023-05-27] MEDS: fentaNYL CITRATE INJ (*CRX) 100 MCG/2 ML VIAL 50 MCG IV PUSH ×4 (13:43→18:16)
[2023-05-27] MEDS: LABETALOL HCL INJ 100 MG/20 ML VIAL 20 MG IV PUSH ×2 (13:44→23:19)
--- NOTE | 2023-05-27 13:50 | PC.NURSE ---
This patient, Mirela Preston, was received from [[id number]] on 05/27/23 at 1258. Radha Norwood RN received bedside report from Corinne Knox RN. Dr. Carroll at bedside upon patient's arrival to the ICU and decision was made to intubate the patient due to respiratory distress.
--- NOTE | 2023-05-27 14:31 | WPDPROCEDUR ---
Procedures Intubation Intubation Date: 05/27/23 Intubation Time: 13:15 Consent: Verbal consent was obtained from the patient was in respiratory distress and respiratory failure she was agreeable to intubation in case of failure of BiPAP therapy which happened on transferred to ICU and patient was intubated A pre-procedural Time-Out was completed immediately before starting the procedure and confirmed: Patient Identification, Site, Procedure, Patient Position and the Availability of Requisite Equipment: Yes Sedative: etomidate Mg given: 20 Paralytic: rocuronium Mg given: 50 Laryngoscope: fiber optic video scope Assist device used: fiber optic device ET tube size: 7.5 Tube secured depth (cm): 25 Tube secured location: lips Tube placement confirmation: visualized tube passing through cords, equal breath sounds bilaterally, no breath sounds over epigastrium and confirmation by capnometry Patient tolerated procedure: well Intubation complications: none Additional comments: ETT withdrawn by 2 cm after review of chest x-ray
--- NOTE | 2023-05-27 14:32 | WPDPROCEDUR ---
Procedures Central Line Placement Right IJ: Central Line Date: 05/27/23 Central Line Time: 14:00 Discussed w/ the patient/family/POA,the placement of a central venous catheter, including its clinical necessity/indication & associated potential risks, benifits and alternatives.: Yes The patient/family/POA understand(s) and acknowledge(s) the need to proceed with central venous catheter insertion as an important element of the patient's clinical management.: Yes Consent: I have discussed with the patient's POA, the non-emergent placement of a central venous catheter, including its clinical necessity/indication and associated potential risks and complications. The patient's POA understand(s) and acknowledge(s) the need to proceed with central venous catheter insertion as an important element of the patient's clinical management. Time Out Performed: Yes Patient Position: supine Patient placed on monitor/pulse ox: Yes Provider Prep: mask, sterile gown, sterile gloves, Max. sterile barrier precautions, cap and hand hygiene with conventional soap/water or alcohol based hand rub Central line prep: Povidone-Iodine 1% Sterile US Technique with sterile gel/sterile probe covers: Yes Central line lumen inserted: triple Length (cm): 16 Depth of Insertion (cm): 16 Post Procedure: sutured in place, good blood return, all ports aspirated, flushed, capped, transparent dressing and aseptic technique maintained throughout procedure Post procedure x-ray: tip of catheter in good position Patient tolerated procedure: well Complications: none
[2023-05-27 14:40] LABS: Alveolar/Arterial O2 Gradient 357.7 mmHg; Base Excess ABG -3.6 mEq/l (+/-2.0); Carboxyhemoglobin 0.3 % THb (0-2.0); Fractional Inspired Oxygen 80 %; HCO3 ABG 21.5 mEq/l (22.0-26.0); Methemoglobin ABG 0.3 %THb (0-1.5); Oxygen Content ABG 13.3 %vol (16.0-22.0); Oxygen Saturation ABG 99.1 % (95.0-100.0); Oxyhemoglobin 97.6 % THb (90.0-100.0); PCO2 ABG 38.5 mmHg (35.0-45.0); PO2 ABG 172.3 mmHg (80.0-100.0); PO2 FiO2 Ratio Arterial Blood 2.15 %; Reduced Hemoglobin 1.8 %THb (0-5.0); Total Hemoglobin 9.4 g/dL (12.0-18.0); pH ABG 7.364 (7.350-7.450)
[2023-05-27 14:42] LABS: Device VENTILATOR; Modified Allen's Test Pass; Site Drawn RIGHT RADIAL
[2023-05-27 14:43] LABS: Arterial Blood Gas PEEP 10 cmH2O; Arterial Blood Gas Tidal Volume 400 ml; Arterial Blood Gas Vent Mode CMV; Arterial Blood Gas Ventilator rate 24 /MIN
[2023-05-27] MEDS: ASPIRIN 325 MG TABLET PO (14:58)
[2023-05-27] MEDS: PANTOPRAZOLE SODIUM IV 40 MG VIAL IV PUSH (14:58)
[2023-05-27] MEDS: ENOXAPARIN 40 MG/0.4 ML SYRINGE SUB-Q (14:58)
[2023-05-27 15:33] LABS: Procalcitonin 0.2 ng/mL
[2023-05-27] MEDS: PROPOFOL IV EMULSION 100 ML 48.6 MG IV CONT ×2 (15:45→18:11)
[2023-05-27 16:06] LABS: Troponin I 0.106 ng/mL (0.000-0.034)
[2023-05-27 17:34] LABS: Sodium Urine Random 77 meq/L
[2023-05-27 17:43] LABS: Appearance Urine Cloudy (Clear); Bacteria Urine 1+ /hpf; Bilirubin Urine Negative (Negative); Blood Urine 2+ (Negative); Color Urine Yellow (Yellow); Glucose Urine UA Negative (Negative); Hyaline Casts Urine Present /lpf; Ketones Urine Negative (Negative); Leukocyte Esterase Ur Trace LEU/UL (Negative); Nitrate Urine Positive (Negative); Non Pathogenic Casts >20; Protein Urine 3+ mg/dL (Negative); Specific Grav Ur 1.014 (1.001-1.035); Squamous Epithelial Cell Urine Few /hpf (Few); Urobilinogen Urine 0.2 mg/dL (<2.0); WBC Urine 21-50 /hpf; pH Urine 6.5 (5.0-9.0)
[2023-05-27 17:44] LABS: Add Urine Microscopic? YES
[2023-05-27] MEDS: DEXTROSE 50% 25 GM/50 ML SYRINGE IV PUSH (18:12)
[2023-05-27 18:15] LABS: Glucose Point of Care 57 mg/dl (65-105)
[2023-05-27 18:37] LABS: Glucose Point of Care 99 mg/dl (65-105)
--- NOTE | 2023-05-27 18:39 | PC.NURSE ---
Chronic freeman changed out on 05/27/23 at 1830 per Kassidy SOLE ROUNDING MACHINE OPERATOR order.
[2023-05-27 19:47] LABS: Glucose Point of Care 82 mg/dl (65-105)
[2023-05-27] MEDS: TOLNAFTATE 1% POWDER 45 GM BTL 1 APPLIC TOPICAL (20:26)
[2023-05-27] MEDS: MINERAL OIL/WHITE PETROLATUM OINTMENT 1 APPLIC EACH EYE (20:27)
[2023-05-27] MEDS: PROPOFOL IV EMULSION 100 ML 44.58 MG IV CONT (20:49)
[2023-05-27] MEDS: CENTRAL LINE FLUSH 10 ML IV PUSH (21:22)
[2023-05-27 21:37] LABS: Troponin I 0.156 ng/mL (0.000-0.034)
[2023-05-27 21:41] LABS: Glucose Point of Care 84 mg/dl (65-105)
[2023-05-27] MEDS: PROPOFOL IV EMULSION 100 ML 40.12 MG IV CONT (22:54)
[2023-05-28] VITALS (47 sets, daily range): BP systolic 134–175; BP diastolic 59–86; PULSE 73–93; RESP 20–24; TEMP 37.3–37.9; O2SAT 82–100
[2023-05-28 00:28] LABS: Glucose Point of Care 75 mg/dl (65-105)
[2023-05-28 01:24] LABS: Glucose Point of Care 80 mg/dl (65-105)
[2023-05-28] MEDS: hydrALAZINE HCL 20 MG/ML VIAL IV PUSH (01:26)
[2023-05-28] MEDS: PROPOFOL IV EMULSION 100 ML 44.58 MG IV CONT ×10 (01:45→22:52)
[2023-05-28] MEDS: LABETALOL HCL INJ 100 MG/20 ML VIAL 20 MG IV PUSH ×2 (03:06→06:25)
[2023-05-28] MEDS: fentaNYL CITRATE INJ (*CRX) 100 MCG/2 ML VIAL 50 MCG IV PUSH ×2 (03:07→23:34)
[2023-05-28 04:36] LABS: Alveolar/Arterial O2 Gradient 206.8 mmHg; Base Excess ABG -0.4 mEq/l (+/-2.0); Carboxyhemoglobin 0.2 % THb (0-2.0); Fractional Inspired Oxygen 50 %; Methemoglobin ABG 0.3 %THb (0-1.5); Oxygen Content ABG 12.5 %vol (16.0-22.0); Oxygen Saturation ABG 98.4 % (95.0-100.0); Oxyhemoglobin 96.8 % THb (90.0-100.0); PO2 ABG 112.6 mmHg (80.0-100.0); PO2 FiO2 Ratio Arterial Blood 2.25 %; Reduced Hemoglobin 2.7 %THb (0-5.0); pH ABG 7.462 (7.350-7.450)
[2023-05-28 04:38] LABS: Device VENTILATOR; Modified Allen's Test Pass; Site Drawn RIGHT RADIAL
[2023-05-28 04:39] LABS: Arterial Blood Gas PEEP 10 cmH2O; Arterial Blood Gas Tidal Volume 400 ml; Arterial Blood Gas Vent Mode CMV; Arterial Blood Gas Ventilator rate 24 /MIN
[2023-05-28] MEDS: CENTRAL LINE FLUSH 10 ML IV PUSH ×3 (06:01→21:18)
[2023-05-28 06:15] LABS: Hematocrit 26.9 % (37.0-47.0); Mean Corpuscular HGB Conc 29.7 g/dl (32-36); Mean Corpuscular Hemoglobin 29.2 pg (26-34); Mean Corpuscular Volume 98.2 fl (80-100); Mean Platelet Volume 10.5 fl (7.4-10.4); Platelet Count Result 180 k/mm3 (150-375); Red Blood Count 2.74 M/mm3 (4.2-5.4); Red Cell Distribution Width 15.8 % (11.5-14.5); White Blood Count 7.8 K/mm3 (4.5-10.0)
[2023-05-28 06:21] LABS: Glucose Point of Care 94 mg/dl (65-105)
[2023-05-28 06:32] LABS: Alanine Aminotransferase 16 U/L (6-35); Albumin Level 3.2 g/dL (3.5-5.1); Alkaline Phosphatase 108 U/L (38-126); Anion Gap 10 mmol/L (8-16); Aspartate Amino Transferase 20 U/L (14-36); Bilirubin,Total 0.3 mg/dL (0.2-1.3); Blood Urea Nitrogen 51 mg/dL (7-17); Calcium 8.5 mg/dL (8.4-10.2); Carbon Dioxide 23 mmol/L (22-30); Chloride 111 mmol/L (98-107); Estimated CRCL calculation 23 ml/min; Estimated Glomerular Filt Rate 15; Glucose 98 mg/dL (65-110); Magnesium 1.8 mg/dL (1.6-2.3); Potassium 3.9 mmol/L (3.4-5.0); Sodium 144 mmol/L (137-145)
--- NOTE | 2023-05-28 08:19 | WPDINTPN ---
Progress Note: A&P Assessment and Plan (1) Acute and chronic respiratory failure with hypoxia: Code(s): J96.21 - Acute and chronic respiratory failure with hypoxia Status: Acute Assessment and Plan: Chest x-ray on presentation IMPRESSION: Cardiomegaly, extensive bilateral pulmonary infiltrates, suggesting congestive heart failure, pulmonary edema, increased in severity since 05/22/2023? WBC normal afebrile. Respiratory secretions clear watery during intubation and procalcitonin level was low patient initially improved with BiPAP in the ER but later deteriorated on the floor Intubated now emergently in ICU and placed on mechanical ventilation ABG, chest x-ray and vent settings reviewed Decrease rate to 20. Continue to wean FiO2 I will continue Lasix IV and increase the dose to 80 mg. May need infusion. PCR for influenza RSV and COVID were negative (2) Acute exacerbation of CHF (congestive heart failure): Qualifiers: Heart failure type: unspecified Qualified Code(s): I50.9 - Heart failure, unspecified Code(s): I50.9 - Heart failure, unspecified Status: Acute Assessment and Plan: Most recent echocardiogram in April 2023 Summary ? 1. Technically difficult exam because of obesity/definity contrast injected to improve visualization. ? 2. Left ventricular dilation with severe global systolic dysfunction ejection fraction of 30%. ? 3. Diastolic noncompliance. ? 4. Left atrial enlarged. ? 5. No obvious valve dysfunction although quality of the exam is very challenging. Continue Lasix for volume overload (3) CKD (chronic kidney disease) stage 3, GFR 30-59 ml/min: Qualifiers: Chronic kidney disease stage 3 subtype: stage 3a (GFR 45-59) Qualified Code(s): N18.31 - Chronic kidney disease, stage 3a Code(s): N18.30 - Chronic kidney disease, stage 3 unspecified Status: Acute Assessment and Plan: Patient has chronic kidney disease with recent acute kidney injury which was managed medically and did not require hemodialysis. She was discharged with creatinine 3.2 which is stable Patient does appear to be volume overloaded and is being given diuretics. Nephrology consult On past admission patient has seen at risk of requiring QUALITY LIAISON but improved with medical therapy Monitor urine output electrolytes and creatinine (4) Asthma-COPD overlap syndrome: Code(s): J44.9 - Chronic obstructive pulmonary disease, unspecified Status: Acute Assessment and Plan: Bronchodilators (5) Pulmonary edema: Code(s): J81.1 - Chronic pulmonary edema Status: Acute Assessment and Plan: See above (6) Elevated troponin: Code(s): R77.8 - Other specified abnormalities of plasma proteins Status: Acute Assessment and Plan: Patient has always had mildly elevated troponin level and has been evaluated by Cardiology in the past. Recent echo reviewed Continue serial troponin Continue aspirin and statin Resume beta-josé (7) Hypertension: Qualifiers: Hypertension type: unspecified Qualified Code(s): I10 - Essential (primary) hypertension Code(s): I10 - Essential (primary) hypertension Status: Acute Assessment and Plan: Resume Coreg and clonidine at a lower dose (8) Seizure: Code(s): R56.9 - Unspecified convulsions Status: Acute Assessment and Plan: Continue phenytoin Plan DVT prophylaxis -Lovenox Stress ulcer prophylaxis -Protonix Nutrition -continue tube feeds Code Status - Full Code Total Critical Care Time - 30 minutes Due to a high probability of clinically significant, life threatening deterioration, the patient required my highest level of preparedness to intervene emergently and I personally spent this critical care time directly and personally managing the patient. This critical care time included obtaining a history; examining the patient; pulse oximetry; ordering and r
[2023-05-28] MEDS: FUROSEMIDE INJ 100 MG/10 ML VIAL 80 MG IV PUSH ×2 (08:27→17:23)
[2023-05-28] MEDS: carvediloL 6.25 MG TABLET PO ×2 (08:28→21:17)
[2023-05-28] MEDS: cloNIDine HCL 0.1 MG TABLET PO ×3 (08:28→21:17)
[2023-05-28] MEDS: ENOXAPARIN 40 MG/0.4 ML SYRINGE SUB-Q (08:29)
[2023-05-28] MEDS: PANTOPRAZOLE SODIUM IV 40 MG VIAL IV PUSH (08:29)
[2023-05-28] MEDS: ATORVASTATIN 40 MG TABLET 80 MG PO (08:29)
[2023-05-28] MEDS: ASPIRIN 325 MG TABLET PO (08:29)
[2023-05-28] MEDS: MINERAL OIL/WHITE PETROLATUM OINTMENT 1 APPLIC EACH EYE ×2 (08:30→21:17)
[2023-05-28] MEDS: TOLNAFTATE 1% POWDER 45 GM BTL 1 APPLIC TOPICAL ×2 (08:31→21:17)
--- NOTE | 2023-05-28 09:07 | PM.IMPN ---
Progress Note: A&P Assessment and Plan (1) Venous insufficiency: Code(s): I87.2 - Venous insufficiency (chronic) (peripheral) Status: Acute (2) CKD (chronic kidney disease) stage 3, GFR 30-59 ml/min: Qualifiers: Chronic kidney disease stage 3 subtype: stage 3a (GFR 45-59) Qualified Code(s): N18.31 - Chronic kidney disease, stage 3a Code(s): N18.30 - Chronic kidney disease, stage 3 unspecified Status: Acute (3) Acute exacerbation of chronic obstructive pulmonary disease: Code(s): J44.1 - Chronic obstructive pulmonary disease with (acute) exacerbation Status: Acute (4) Obstructive apnea: Code(s): G47.33 - Obstructive sleep apnea (adult) (pediatric) Status: Acute (5) Hypernatremia: Code(s): E87.0 - Hyperosmolality and hypernatremia Status: Acute (6) Electrolyte abnormality: Code(s): E87.8 - Other disorders of electrolyte and fluid balance, not elsewhere classified Status: Acute (7) Non-ST elevation (NSTEMI) myocardial infarction: Code(s): I21.4 - Non-ST elevation (NSTEMI) myocardial infarction Status: Acute (8) Acute kidney injury superimposed on CKD: Code(s): N17.9 - Acute kidney failure, unspecified; N18.9 - Chronic kidney disease, unspecified Status: Acute (9) Acute exacerbation of CHF (congestive heart failure): Qualifiers: Heart failure type: unspecified Qualified Code(s): I50.9 - Heart failure, unspecified Code(s): I50.9 - Heart failure, unspecified Status: Acute (10) ARMIN (acute kidney injury): Code(s): N17.9 - Acute kidney failure, unspecified Status: Acute (11) Acute exacerbation of congestive heart failure: Code(s): I50.9 - Heart failure, unspecified Status: Acute (12) Acute non-ST elevation myocardial infarction (NSTEMI): Code(s): I21.4 - Non-ST elevation (NSTEMI) myocardial infarction Status: Acute Plan (1) Acute and chronic respiratory failure with hypoxia: ?Code(s): J96.21 - Acute and chronic respiratory failure with hypoxia ?Status:?Acute ?Assessment and Plan: Due to multiple factors, including acute heart failure, COPD, Chest x-ray on presentation IMPRESSION: Cardiomegaly, extensive bilateral pulmonary infiltrates, suggesting congestive heart failure, pulmonary edema, increased in severity since 05/22/2023? WBC normal afebrile.? Respiratory secretions clear watery during intubation and procalcitonin level was low ?patient initially improved with BiPAP in the ER but later deteriorated on the floor Intubated now emergently in ICU and placed on mechanical ventilation Management per senior advocate continue Lasix IV and increase the dose to 80 mg.? PCR for influenza RSV and COVID were negative (2) Acute exacerbation of CHF (congestive heart failure): ?Qualifiers: ?Heart failure type:?unspecified? Qualified Code(s):?I50.9 - Heart failure, unspecified ?Code(s): I50.9 - Heart failure, unspecified ?Status:?Acute ?Assessment and Plan: Most recent echocardiogram in April 2023 Left ventricular dilation with severe global systolic dysfunction ejection fraction of 30%. ?. No obvious valve dysfunction although quality of the exam is very challenging. Continue Lasix for volume overload (3) CKD (chronic kidney disease) stage 3, GFR 30-59 ml/min: ?Qualifiers: ? volume overloaded and is being given diuretics.? Nephrology consult On past admission patient has seen at risk of requiring PEOPLESOFT FUNCTIONAL ANALYST but improved with medical therapy Monitor urine output electrolytes and creatinine (4) Asthma-COPD overlap syndrome: ?Code(s): J44.9 - Chronic obstructive pulmonary disease, unspecified ?Status:?Acute ?Assessment and Plan: Bronchodilators (5) Pulmonary edema: ?Code(s): J81.1 - Chronic pulmonary edema ?Status:?Acute ?Assessment and Plan: See above (6) Elevated troponin: ?Cod
[2023-05-28 11:44] LABS: Glucose Point of Care 93 mg/dl (65-105)
--- NOTE | 2023-05-28 12:05 | P.CONNP_ITS ---
Assessment and Plan Assessment and plan (1) ARMIN (acute kidney injury): Code(s): N17.9 - Acute kidney failure, unspecified Status: Acute Assessment and Plan: * noted on previous hospitalization here at [facility] in April 2022 * discharged with a creatinine of 3.7mg/dl * suspected etiology was ATN due to infection (COVID + pneumonia) and CHF exacerbation * evaluation during April 2023 admission noted: * renal ultrasound with medical renal disease (incomplete visualization of left kidney) * CPK okay * UA with blood and protein along with?granular casts * urine electrolytes never done * no peripheral eosinophilia or rash * serologies (GISELA, ANCA, dsDNA-Ab, antiGBM-ab, complements, and serm/urine immunofixation) were all negative * during hospitalization 2 weeks ago (early May 2023), creatinine was still elevated (no evidence of renal recovery * admission creatinine was 3.4mg/dl (on 05/17/23) * discharge creatinine was 3.2mg/dl -- possible new baseline? * it would seems that her renal function has still not recovered based on admission labs or perhaps she has a new baseline creatinine * once again, she remains at risk for BUSINESS LINE MANAGER/dialysis * however, on previous hospitalizations, she responded to medical therapy... * follow trend of repeat labs and UOP (2) Stage 3a chronic kidney disease: Code(s): N18.31 - Chronic kidney disease, stage 3a Status: Chronic Assessment and Plan: * creatinine was running around 1.4 - 1.5mg/dl in November 2021 * presumably secondary to hypertension and vascular disease as well as CHF * suspect component of CKD progression on top of ARIMN/ARF from last hospital admissions (3) Acute and chronic respiratory failure with hypoxia: Code(s): J96.21 - Acute and chronic respiratory failure with hypoxia Status: Acute Assessment and Plan: * felt to be secondary to volume overload from CHF and pulmonary edema * complicated by asthma and COPD * initially responded to BIPAP in ER * however, deteriorated on the floor requiring intubation and mechanical venti lation (on 05/27/23) * continue IV diuretics - titrate dosage * consider continuous infusion/gtt * if unresponsive to diuretic therapy, may need BUSINESS LINE MANAGER/dialysis to optimize volume status * ventilator weaning once more stable (4) Acute exacerbation of CHF (congestive heart failure): Qualifiers: Heart failure type: unspecified Qualified Code(s): I50.9 - Heart failure, unspecified Code(s): I50.9 - Heart failure, unspecified Status: Acute Assessment and Plan: * known cardiomyomathy * last Echo with EF of 30% * continue diuresis * follow I/Os, CXR/respiratory status, and daily weights * unclear trigger for decompensation... (5) Hypertension: Qualifiers: Hypertension type: unspecified Qualified Code(s): I10 - Essential (primary) hypertension Code(s): I10 - Essential (primary) hypertension Status: Acute Assessment and Plan: * reasonable control at this time * follow trend of hemodynamics (6) Anemia: Qualifiers: Anemia type: due to chronic kidney disease Chronic kidney disease stage: stage 3 (moderate) Code(s): D64.9 - Anemia, unspecified Status: Chronic Assessment and Plan: * presumably due to CKD and recurrent hospitalizations/acute illness * follow trend of H/H * consider empiric Epogen Discussed case with Dr. Carroll. I will continue follow the patient with you while she remains hospitalized and
--- NOTE | 2023-05-28 12:05 | PM.CNNEP ---
Assessment and Plan Assessment and plan (1) ARMIN (acute kidney injury): Code(s): N17.9 - Acute kidney failure, unspecified Status: Acute Assessment and Plan: noted on previous hospitalization here at [facility] in April 2022 discharged with a creatinine of 3.7mg/dl suspected etiology was ATN due to infection (COVID + pneumonia) and CHF exacerbation evaluation during April 2023 admission noted: renal ultrasound with medical renal disease (incomplete visualization of left kidney) CPK okay UA with blood and protein along with?granular casts urine electrolytes never done no peripheral eosinophilia or rash serologies (GISELA, ANCA, dsDNA-Ab, antiGBM-ab, complements, and serm/urine immunofixation) were all negative during hospitalization 2 weeks ago (early May 2023), creatinine was still elevated (no evidence of renal recovery admission creatinine was 3.4mg/dl (on 05/17/23) discharge creatinine was 3.2mg/dl -- possible new baseline? it would seems that her renal function has still not recovered based on admission labs or perhaps she has a new baseline creatinine once again, she remains at risk for HEMP FIBER TAKER OFF/dialysis however, on previous hospitalizations, she responded to medical therapy... follow trend of repeat labs and UOP (2) Stage 3a chronic kidney disease: Code(s): N18.31 - Chronic kidney disease, stage 3a Status: Chronic Assessment and Plan: creatinine was running around 1.4 - 1.5mg/dl in November 2021 presumably secondary to hypertension and vascular disease as well as CHF suspect component of CKD progression on top of ARMIN/ARF from last hospital admissions (3) Acute and chronic respiratory failure with hypoxia: Code(s): J96.21 - Acute and chronic respiratory failure with hypoxia Status: Acute Assessment and Plan: felt to be secondary to volume overload from CHF and pulmonary edema complicated by asthma and COPD initially responded to BIPAP in ER however, deteriorated on the floor requiring intubation and mechanical ventilation (on 05/27/23) continue IV diuretics - titrate dosage consider continuous infusion/gtt if unresponsive to diuretic therapy, may need HEMP FIBER TAKER OFF/dialysis to optimize volume status ventilator weaning once more stable (4) Acute exacerbation of CHF (congestive heart failure): Qualifiers: Heart failure type: unspecified Qualified Code(s): I50.9 - Heart failure, unspecified Code(s): I50.9 - Heart failure, unspecified Status: Acute Assessment and Plan: known cardiomyomathy last Echo with EF of 30% continue diuresis follow I/Os, CXR/respiratory status, and daily weights unclear trigger for decompensation... (5) Hypertension: Qualifiers: Hypertension type: unspecified Qualified Code(s): I10 - Essential (primary) hypertension Code(s): I10 - Essential (primary) hypertension Status: Acute Assessment and Plan: reasonable control at this time follow trend of hemodynamics (6) Anemia: Qualifiers: Anemia type: due to chronic kidney disease Chronic kidney disease stage: stage 3 (moderate) Code(s): D64.9 - Anemia, unspecified Status: Chronic Assessment and Plan: presumably due to CKD and recurrent hospitalizations/acute illness follow trend of H/H consider empiric Epogen Discussed case with Dr. Carroll. I will continue follow the patient with you while she remains hospitalized and make further recommendations as needed. Thank you for allowing me to participate in the care of this patient. History of Present Illness Reason for Consult Consult date: 05/28/23 Reason for consult: chronic renal failure Chief Complaint Chief complaint: CHF Exac History of Present Illness Narrative: All of the information that I have obtained is from review of the electronic medical record, discussion with the physician/nurses involved in the pat
[2023-05-28 17:21] LABS: Glucose Point of Care 100 mg/dl (65-105)
[2023-05-28 23:33] LABS: Glucose Point of Care 119 mg/dl (65-105)
[2023-05-29] VITALS (27 sets, daily range): BP systolic 135–177; BP diastolic 57–106; PULSE 65–86; RESP 20–21; TEMP 36.9–38.1; O2SAT 96–99; BMI 55.9
[2023-05-29] MEDS: PROPOFOL IV EMULSION 100 ML 44.58 MG IV CONT ×10 (02:28→23:31)
[2023-05-29 05:03] LABS: Hematocrit 25.5 % (37.0-47.0); Hemoglobin 7.7 g/dL (12.0-15.0); Mean Corpuscular HGB Conc 30.2 g/dl (32-36); Mean Corpuscular Hemoglobin 29.4 pg (26-34); Mean Corpuscular Volume 97.3 fl (80-100); Mean Platelet Volume 10.4 fl (7.4-10.4); Platelet Count Result 160 k/mm3 (150-375); Red Blood Count 2.62 M/mm3 (4.2-5.4); White Blood Count 5.8 K/mm3 (4.5-10.0)
[2023-05-29] MEDS: CENTRAL LINE FLUSH 10 ML IV PUSH ×3 (05:08→21:30)
[2023-05-29] MEDS: cloNIDine HCL 0.1 MG TABLET PO ×3 (05:08→21:28)
[2023-05-29 05:16] LABS: Alanine Aminotransferase 15 U/L (6-35); Albumin Level 3.3 g/dL (3.5-5.1); Alkaline Phosphatase 102 U/L (38-126); Anion Gap 11 mmol/L (8-16); Aspartate Amino Transferase 19 U/L (14-36); Bilirubin,Total 0.2 mg/dL (0.2-1.3); Blood Urea Nitrogen 54 mg/dL (7-17); Calcium 8.4 mg/dL (8.4-10.2); Carbon Dioxide 24 mmol/L (22-30); Chloride 108 mmol/L (98-107); Estimated CRCL calculation 21 ml/min; Estimated Glomerular Filt Rate 13; Glucose 106 mg/dL (65-110); Magnesium 1.9 mg/dL (1.6-2.3); Potassium 3.9 mmol/L (3.4-5.0); Sodium 143 mmol/L (137-145)
[2023-05-29 05:25] LABS: Alveolar/Arterial O2 Gradient 66.3 mmHg; Base Excess ABG -2.5 mEq/l (+/-2.0); Carboxyhemoglobin 0.3 % THb (0-2.0); Fractional Inspired Oxygen 30 %; HCO3 ABG 22.4 mEq/l (22.0-26.0); Methemoglobin ABG 0.1 %THb (0-1.5); Oxygen Content ABG 14.9 %vol (16.0-22.0); Oxygen Saturation ABG 97.5 % (95.0-100.0); Oxyhemoglobin 96.3 % THb (90.0-100.0); PCO2 ABG 39.4 mmHg (35.0-45.0); PO2 ABG 101.3 mmHg (80.0-100.0); PO2 FiO2 Ratio Arterial Blood 3.38 %; Reduced Hemoglobin 3.3 %THb (0-5.0); Total Hemoglobin 10.9 g/dL (12.0-18.0); pH ABG 7.373 (7.350-7.450)
[2023-05-29 05:27] LABS: Device VENTILATOR; Modified Allen's Test Pass; Site Drawn RIGHT RADIAL
[2023-05-29 05:28] LABS: Arterial Blood Gas PEEP 10 cmH2O; Arterial Blood Gas Tidal Volume 400 ml; Arterial Blood Gas Vent Mode CMV; Arterial Blood Gas Ventilator rate 20 /MIN
[2023-05-29 05:46] LABS: Hepatitis B Surface Antigen Negative (Negative)
[2023-05-29 06:04] LABS: Hepatitis B Surface Anti Res Negative
[2023-05-29] MEDS: MINERAL OIL/WHITE PETROLATUM OINTMENT 1 APPLIC EACH EYE ×2 (08:21→21:29)
[2023-05-29] MEDS: ATORVASTATIN 40 MG TABLET 80 MG PO (08:21)
[2023-05-29] MEDS: ASPIRIN 325 MG TABLET PO (08:21)
[2023-05-29] MEDS: PANTOPRAZOLE SODIUM IV 40 MG VIAL IV PUSH (08:21)
[2023-05-29] MEDS: FUROSEMIDE INJ 100 MG/10 ML VIAL 80 MG IV PUSH ×2 (08:21→16:29)
[2023-05-29] MEDS: ENOXAPARIN 40 MG/0.4 ML SYRINGE SUB-Q (08:22)
[2023-05-29] MEDS: carvediloL 6.25 MG TABLET PO ×2 (08:22→21:29)
[2023-05-29] MEDS: TOLNAFTATE 1% POWDER 45 GM BTL 1 APPLIC TOPICAL ×2 (08:22→21:29)
--- NOTE | 2023-05-29 09:08 | PM.IMPN ---
Progress Note: A&P Assessment and Plan (1) Venous insufficiency: Code(s): I87.2 - Venous insufficiency (chronic) (peripheral) Status: Acute (2) CKD (chronic kidney disease) stage 3, GFR 30-59 ml/min: Qualifiers: Chronic kidney disease stage 3 subtype: stage 3a (GFR 45-59) Qualified Code(s): N18.31 - Chronic kidney disease, stage 3a Code(s): N18.30 - Chronic kidney disease, stage 3 unspecified Status: Acute (3) Acute exacerbation of chronic obstructive pulmonary disease: Code(s): J44.1 - Chronic obstructive pulmonary disease with (acute) exacerbation Status: Acute (4) Obstructive apnea: Code(s): G47.33 - Obstructive sleep apnea (adult) (pediatric) Status: Acute (5) Hypernatremia: Code(s): E87.0 - Hyperosmolality and hypernatremia Status: Acute (6) Electrolyte abnormality: Code(s): E87.8 - Other disorders of electrolyte and fluid balance, not elsewhere classified Status: Acute (7) Non-ST elevation (NSTEMI) myocardial infarction: Code(s): I21.4 - Non-ST elevation (NSTEMI) myocardial infarction Status: Acute (8) Acute kidney injury superimposed on CKD: Code(s): N17.9 - Acute kidney failure, unspecified; N18.9 - Chronic kidney disease, unspecified Status: Acute (9) Acute exacerbation of CHF (congestive heart failure): Qualifiers: Heart failure type: unspecified Qualified Code(s): I50.9 - Heart failure, unspecified Code(s): I50.9 - Heart failure, unspecified Status: Acute (10) ARMIN (acute kidney injury): Code(s): N17.9 - Acute kidney failure, unspecified Status: Acute (11) Acute non-ST elevation myocardial infarction (NSTEMI): Code(s): I21.4 - Non-ST elevation (NSTEMI) myocardial infarction Status: Acute Plan (1) Acute and chronic respiratory failure with hypoxia: ?Code(s): J96.21 - Acute and chronic respiratory failure with hypoxia ?Status:?Acute ?Assessment and Plan: Due to multiple factors, including acute heart failure, COPD, Chest x-ray on presentation IMPRESSION: Cardiomegaly, extensive bilateral pulmonary infiltrates, suggesting congestive heart failure, pulmonary edema, increased in severity since 05/22/2023? WBC normal afebrile.? Respiratory secretions clear watery during intubation and procalcitonin level was low ?patient initially improved with BiPAP in the ER but later deteriorated on the floor Intubated now emergently in ICU and placed on mechanical ventilation Management per sales recruiting coordinator continue Lasix IV and increase the dose to 80 mg.? PCR for influenza RSV and COVID were negative (2) Acute exacerbation of CHF (congestive heart failure): ?Qualifiers: ?Heart failure type:?unspecified? Qualified Code(s):?I50.9 - Heart failure, unspecified ?Code(s): I50.9 - Heart failure, unspecified ?Status:?Acute ?Assessment and Plan: Most recent echocardiogram in April 2023 Left ventricular dilation with severe global systolic dysfunction ejection fraction of 30%. ?. No obvious valve dysfunction although quality of the exam is very challenging. Received lasix for volume overload (3) CKD (chronic kidney disease) stage 3, GFR 30-59 ml/min: ?Qualifiers: ? volume overloaded and is being given diuretics.? Nephrology consult On past admission patient has seen at risk of requiring WOOD MILLING MACHINE HAND but improved with medical therapy Monitor urine output electrolytes and creatinine (4) Asthma-COPD overlap syndrome: ?Code(s): J44.9 - Chronic obstructive pulmonary disease, unspecified ?Status:?Acute ?Assessment and Plan: Bronchodilators (5) Pulmonary edema: ?Code(s): J81.1 - Chronic pulmonary edema ?Status:?Acute ?Assessment and Plan: See above (6) Elevated troponin: ?Code(s): R77.8 - Other specified abnormalities of plasma proteins ?Status:?Acute ?Assessment and Plan: Continue seria
--- NOTE | 2023-05-29 10:56 | WPDINTPN ---
Progress Note: A&P Assessment and Plan (1) Acute and chronic respiratory failure with hypoxia: Code(s): J96.21 - Acute and chronic respiratory failure with hypoxia Status: Acute Assessment and Plan: Chest x-ray on presentation IMPRESSION: Cardiomegaly, extensive bilateral pulmonary infiltrates, suggesting congestive heart failure, pulmonary edema, increased in severity since 05/22/2023? WBC normal afebrile. Respiratory secretions clear watery during intubation and procalcitonin level was low patient initially improved with BiPAP in the ER but later deteriorated on the floor Intubated now emergently in ICU and placed on mechanical ventilation ABG, chest x-ray and vent settings reviewed Decrease rate to 20. Currently at 30% fiO2. Will decrease PEEP from 10-8 I will continue Lasix IV PCR for influenza RSV and COVID were negative (2) Acute exacerbation of CHF (congestive heart failure): Qualifiers: Heart failure type: unspecified Qualified Code(s): I50.9 - Heart failure, unspecified Code(s): I50.9 - Heart failure, unspecified Status: Acute Assessment and Plan: Most recent echocardiogram in April 2023 Summary ? 1. Technically difficult exam because of obesity/definity contrast injected to improve visualization. ? 2. Left ventricular dilation with severe global systolic dysfunction ejection fraction of 30%. ? 3. Diastolic noncompliance. ? 4. Left atrial enlarged. ? 5. No obvious valve dysfunction although quality of the exam is very challenging. Continue Lasix for volume overload (3) CKD (chronic kidney disease) stage 3, GFR 30-59 ml/min: Qualifiers: Chronic kidney disease stage 3 subtype: stage 3a (GFR 45-59) Qualified Code(s): N18.31 - Chronic kidney disease, stage 3a Code(s): N18.30 - Chronic kidney disease, stage 3 unspecified Status: Acute Assessment and Plan: Patient has chronic kidney disease with recent acute kidney injury which was managed medically and did not require hemodialysis. She was discharged with creatinine 3.2 which was stable on presentation Patient does appear to be volume overloaded and has been started on diuretics. Nephrology consulted She has responded to diuretics and is producing urine On past admission patient has seen at risk of requiring CONVEYOR LINE BAKERY WORKER but improved with medical therapy but remains at risk in case renal function worsens or urine output decreases Continue to monitor urine output electrolytes and creatinine (4) Asthma-COPD overlap syndrome: Code(s): J44.9 - Chronic obstructive pulmonary disease, unspecified Status: Acute Assessment and Plan: Bronchodilators (5) Pulmonary edema: Code(s): J81.1 - Chronic pulmonary edema Status: Acute Assessment and Plan: See above (6) Elevated troponin: Code(s): R77.8 - Other specified abnormalities of plasma proteins Status: Acute Assessment and Plan: Patient has always had mildly elevated troponin level and has been evaluated by Cardiology in the past. Recent echo reviewed Continue serial troponin Continue aspirin and statin Resume beta-josé (7) Hypertension: Qualifiers: Hypertension type: unspecified Qualified Code(s): I10 - Essential (primary) hypertension Code(s): I10 - Essential (primary) hypertension Status: Acute Assessment and Plan: Continue coreg and clonidine at a lower dose (8) Seizure: Code(s): R56.9 - Unspecified convulsions Status: Acute Assessment and Plan: Continue phenytoin Plan DVT prophylaxis -Lovenox Stress ulcer prophylaxis -Protonix Nutrition -continue tube feeds Code Status - Full Code Total Critical Care Time - 30 minutes Due to a high probability of clinically significant, life threatening deterioration, the patient required my highest level of preparedness to intervene emergently and I personally spent this critical care time direct
--- NOTE | 2023-05-29 11:28 | PCDIET ---
Tube feedings recommendation: Decrease rate to 25 ml/hr of Nepro and add Prosource BID. Total Nutrition including Propofol: 2327 kcals/85 gms protein/400 ml water. Flush 30 ml q 4 hours.
[2023-05-29 11:40] LABS: Glucose Point of Care 100 mg/dl (65-105)
--- NOTE | 2023-05-29 12:40 | P.PNNP_ITS ---
Progress Note: A&P Assessment and Plan (1) ARMIN (acute kidney injury): Code(s): N17.9 - Acute kidney failure, unspecified Status: Acute Assessment and Plan: * noted on previous hospitalization here at [place] in April 2022 * discharged with a creatinine of 3.7mg/dl at that time * suspected etiology was ATN due to infection (COVID + pneumonia) and CHF exacerbation * evaluation during April 2023 admission noted: * renal ultrasound with medical renal disease (incomplete visualization of left kidney) * CPK okay * UA with blood and protein along with?granular casts * urine electrolytes never done * no peripheral eosinophilia or rash * serologies (GISELA, ANCA, dsDNA-Ab, antiGBM-ab, complements, and serm/urine immunofixation) were all negative * during hospitalization 2 weeks ago (early May 2023), creatinine was still elevated (no evidence of renal recovery) * admission creatinine was 3.4mg/dl (on 05/17/23) * discharge creatinine was 3.2mg/dl -- possible new baseline? * it would seems that her renal function has still not recovered based on admission labs or perhaps she has a new baseline creatinine * once again, she remains at risk for PAYABLE MANAGER/dialysis * however, on previous hospitalizations, she responded to medical therapy... * follow trend of repeat labs and UOP (2) Stage 3a chronic kidney disease: Code(s): N18.31 - Chronic kidney disease, stage 3a Status: Chronic Assessment and Plan: * creatinine was running around 1.4 - 1.5mg/dl in November 2021 * presumably secondary to hypertension and vascular disease as well as CHF * suspect component of CKD progression on top of ARMIN/ARF from last hospital ad [facility] (3) Acute and chronic respiratory failure with hypoxia: Code(s): J96.21 - Acute and chronic respiratory failure with hypoxia Status: Acute Assessment and Plan: * felt to be secondary to volume overload from CHF and pulmonary edema * complicated by asthma and COPD * initially responded to BIPAP in ER * however, deteriorated on the floor requiring intubation and mechanical ventilation (on 05/27/23) * continue IV diuretics - titrate dosage * consider continuous infusion/gtt if necessary * if unresponsive to diuretic therapy, may need PAYABLE MANAGER/dialysis to optimize volume status * ventilator weaning once more stable (4) Acute exacerbation of CHF (congestive heart failure): Qualifiers: Heart failure type: unspecified Qualified Code(s): I50.9 - Heart failure, unspecified Code(s): I50.9 - Heart failure, unspecified Status: Acute Assessment and Plan: * known cardiomyomathy * last Echo with EF of 30% * continue diuresis * follow I/Os, CXR/respiratory status, and daily weights * unclear trigger for decompensation... (5) Hypertension: Qualifiers: Hypertension type: unspecified Qualified Code(s): I10 - Essential (primary) hypertension Code(s): I10 - Essential (primary) hypertension Status: Acute Assessment and Plan: * reasonable control at this time * follow trend of hemodynamics (6) Anemia: Qualifiers: Anemia type: due to chronic kidney disease Chronic kidney disease stage: stage 3 (moderate) Code(s): D64.9 - Anemia, unspecified Status: Chronic Assessment and Plan: * presumably due to CKD and recurrent hospitalizations/acute illness * follow trend of H/H * consider empiric Epogen Will continue to follow. Subjective Date/time seen: 05/29/23 12:40
--- NOTE | 2023-05-29 12:40 | PM.PNNEP ---
Progress Note: A&P Assessment and Plan (1) ARMIN (acute kidney injury): Code(s): N17.9 - Acute kidney failure, unspecified Status: Acute Assessment and Plan: noted on previous hospitalization here at [facility] in April 2022 discharged with a creatinine of 3.7mg/dl at that time suspected etiology was ATN due to infection (COVID + pneumonia) and CHF exacerbation evaluation during April 2023 admission noted: renal ultrasound with medical renal disease (incomplete visualization of left kidney) CPK okay UA with blood and protein along with?granular casts urine electrolytes never done no peripheral eosinophilia or rash serologies (GISELA, ANCA, dsDNA-Ab, antiGBM-ab, complements, and serm/urine immunofixation) were all negative during hospitalization 2 weeks ago (early May 2023), creatinine was still elevated (no evidence of renal recovery) admission creatinine was 3.4mg/dl (on 05/17/23) discharge creatinine was 3.2mg/dl -- possible new baseline? it would seems that her renal function has still not recovered based on admission labs or perhaps she has a new baseline creatinine once again, she remains at risk for COKE OVEN MASON/dialysis however, on previous hospitalizations, she responded to medical therapy... follow trend of repeat labs and UOP (2) Stage 3a chronic kidney disease: Code(s): N18.31 - Chronic kidney disease, stage 3a Status: Chronic Assessment and Plan: creatinine was running around 1.4 - 1.5mg/dl in November 2021 presumably secondary to hypertension and vascular disease as well as CHF suspect component of CKD progression on top of ARMIN/ARF from last hospital admissions (3) Acute and chronic respiratory failure with hypoxia: Code(s): J96.21 - Acute and chronic respiratory failure with hypoxia Status: Acute Assessment and Plan: felt to be secondary to volume overload from CHF and pulmonary edema complicated by asthma and COPD initially responded to BIPAP in ER however, deteriorated on the floor requiring intubation and mechanical ventilation (on 05/27/23) continue IV diuretics - titrate dosage consider continuous infusion/gtt if necessary if unresponsive to diuretic therapy, may need COKE OV[employer] MASON/dialysis to optimize volume status ventilator weaning once more stable (4) Acute exacerbation of CHF (congestive heart failure): Qualifiers: Heart failure type: unspecified Qualified Code(s): I50.9 - Heart failure, unspecified Code(s): I50.9 - Heart failure, unspecified Status: Acute Assessment and Plan: known cardiomyomathy last Echo with EF of 30% continue diuresis follow I/Os, CXR/respiratory status, and daily weights unclear trigger for decompensation... (5) Hypertension: Qualifiers: Hypertension type: unspecified Qualified Code(s): I10 - Essential (primary) hypertension Code(s): I10 - Essential (primary) hypertension Status: Acute Assessment and Plan: reasonable control at this time follow trend of hemodynamics (6) Anemia: Qualifiers: Anemia type: due to chronic kidney disease Chronic kidney disease stage: stage 3 (moderate) Code(s): D64.9 - Anemia, unspecified Status: Chronic Assessment and Plan: presumably due to CKD and recurrent hospitalizations/acute illness follow trend of H/H consider empiric Epogen Will continue to follow. Subjective Date/time seen: 05/29/23 12:40 Interval history: Follow-up for acute kidney injury/acute renal failure on chronic kidney disease versus chronic kidney disease. Remains intuibated/sedated and on mechanical ventilation; stable hemodynamics and reasonable urine output with IV diuretic therapy (albeit at the expense of rising creatinine/worsening renal function); no other acute issues/events overnight or earlier this morning. Exam Narrative: General: Large female intubated/
[2023-05-29 17:14] LABS: Glucose Point of Care 100 mg/dl (65-105)
[2023-05-29 20:24] LABS: Triglycerides 265 mg/dL (<150)
[2023-05-30] VITALS (39 sets, daily range): BP systolic 126–175; BP diastolic 49–86; PULSE 66–85; RESP 19–24; TEMP 36.8–37.6; O2SAT 96–100
[2023-05-30 00:28] LABS: Glucose Point of Care 106 mg/dl (65-105)
[2023-05-30] MEDS: PROPOFOL IV EMULSION 100 ML 44.58 MG IV CONT ×4 (01:41→08:57)
[2023-05-30 05:36] LABS: Alveolar/Arterial O2 Gradient 67.2 mmHg; Base Excess ABG -1.2 mEq/l (+/-2.0); Carboxyhemoglobin 0.6 % THb (0-2.0); Fractional Inspired Oxygen 30 %; HCO3 ABG 24.2 mEq/l (22.0-26.0); Methemoglobin ABG 0.3 %THb (0-1.5); Oxygen Content ABG 19.5 %vol (16.0-22.0); Oxygen Saturation ABG 97.1 % (95.0-100.0); Oxyhemoglobin 95.8 % THb (90.0-100.0); PO2 ABG 96.2 mmHg (80.0-100.0); PO2 FiO2 Ratio Arterial Blood 3.21 %; Reduced Hemoglobin 3.3 %THb (0-5.0); Total Hemoglobin 14.4 g/dL (12.0-18.0); pH ABG 7.368 (7.350-7.450)
[2023-05-30 05:37] LABS: Device VENTILATOR; Modified Allen's Test Pass; Site Drawn RIGHT RADIAL
[2023-05-30 05:38] LABS: Arterial Blood Gas PEEP 8 cmH2O; Arterial Blood Gas Tidal Volume 400 ml; Arterial Blood Gas Vent Mode CMV; Arterial Blood Gas Ventilator rate 20 /MIN
[2023-05-30 05:42] LABS: Hematocrit 26.1 % (37.0-47.0); Hemoglobin 7.6 g/dL (12.0-15.0); Mean Corpuscular HGB Conc 29.1 g/dl (32-36); Mean Corpuscular Hemoglobin 28.8 pg (26-34); Mean Corpuscular Volume 98.9 fl (80-100); Mean Platelet Volume 10.5 fl (7.4-10.4); Platelet Count Result 151 k/mm3 (150-375); Red Blood Count 2.64 M/mm3 (4.2-5.4); Red Cell Distribution Width 15.9 % (11.5-14.5); White Blood Count 5.6 K/mm3 (4.5-10.0)
[2023-05-30 06:00] LABS: Alanine Aminotransferase 15 U/L (6-35); Albumin Level 3.4 g/dL (3.5-5.1); Alkaline Phosphatase 103 U/L (38-126); Anion Gap 13 mmol/L (8-16); Aspartate Amino Transferase 21 U/L (14-36); Bilirubin,Total 0.3 mg/dL (0.2-1.3); Blood Urea Nitrogen 65 mg/dL (7-17); Calcium 8.2 mg/dL (8.4-10.2); Carbon Dioxide 23 mmol/L (22-30); Chloride 106 mmol/L (98-107); Estimated CRCL calculation 21 ml/min; Estimated Glomerular Filt Rate 13; Glucose 92 mg/dL (65-110); Magnesium 1.9 mg/dL (1.6-2.3); Sodium 142 mmol/L (137-145)
[2023-05-30] MEDS: CENTRAL LINE FLUSH 10 ML IV PUSH ×3 (06:00→21:07)
[2023-05-30] MEDS: cloNIDine HCL 0.1 MG TABLET PO ×3 (06:00→21:06)
[2023-05-30 06:23] LABS: Glucose Point of Care 83 mg/dl (65-105)
[2023-05-30] MEDS: BUMETANIDE INJ 1 MG/4 ML VIAL IV PUSH ×2 (08:33→16:16)
[2023-05-30] MEDS: ENOXAPARIN 40 MG/0.4 ML SYRINGE SUB-Q (08:33)
[2023-05-30] MEDS: ATORVASTATIN 40 MG TABLET 80 MG PO (08:33)
[2023-05-30] MEDS: ASPIRIN 325 MG TABLET PO (08:33)
[2023-05-30] MEDS: carvediloL 6.25 MG TABLET PO ×2 (08:34→21:06)
[2023-05-30] MEDS: MINERAL OIL/WHITE PETROLATUM OINTMENT 1 APPLIC EACH EYE ×2 (08:34→21:07)
[2023-05-30] MEDS: PANTOPRAZOLE SODIUM IV 40 MG VIAL IV PUSH (08:34)
[2023-05-30] MEDS: TOLNAFTATE 1% POWDER 45 GM BTL 1 APPLIC TOPICAL ×2 (08:34→21:07)
[2023-05-30] MEDS: dexmedeTOMIDine 400 MCG/100 ML 400 MCG/100 ML BAG 7.24 MCG IV CONT (08:34)
--- NOTE | 2023-05-30 08:34 | WPDINTPN ---
Progress Note: A&P Assessment and Plan (1) Acute and chronic respiratory failure with hypoxia: Code(s): J96.21 - Acute and chronic respiratory failure with hypoxia Status: Acute Assessment and Plan: 05/27: Presented the ED with shortness of breath, requiring intubation secondary to CHF exacerbation -WBC normal, afebrile. Respiratory secretions clear watery during intubation and procalcitonin level was low -currently on CMV mode of ventilation, peep of 8 in 30% FiO2 -ABG, chest x-ray and vent settings reviewed -will switch Lasix to Bumex -continue bronchodilators -PCR for influenza RSV and COVID were negative -sedated with propofol, will switch to Precedex infusion, once patient is more awake will place a breathing trial and evaluate for extubation (2) Acute exacerbation of CHF (congestive heart failure): Qualifiers: Heart failure type: unspecified Qualified Code(s): I50.9 - Heart failure, unspecified Code(s): I50.9 - Heart failure, unspecified Status: Acute Assessment and Plan: Most recent echocardiogram in April 2023 Summary ? 1. Technically difficult exam because of obesity/definity contrast injected to improve visualization. ? 2. Left ventricular dilation with severe global systolic dysfunction ejection fraction of 30%. ? 3. Diastolic noncompliance. ? 4. Left atrial enlarged. ? 5. No obvious valve dysfunction although quality of the exam is very challenging. Continue diuresis for volume overload (3) CKD (chronic kidney disease) stage 3, GFR 30-59 ml/min: Qualifiers: Chronic kidney disease stage 3 subtype: stage 3a (GFR 45-59) Qualified Code(s): N18.31 - Chronic kidney disease, stage 3a Code(s): N18.30 - Chronic kidney disease, stage 3 unspecified Status: Acute Assessment and Plan: Patient has chronic kidney disease with recent acute kidney injury which was managed medically and did not require hemodialysis. She was discharged with creatinine 3.2 which was stable on presentation Patient does appear to be volume overloaded and has been started on diuretics. She has responded to diuretics and making urine On past admission patient has seen at risk of requiring BUSINESS OFFICE ASSISTANT but improved with medical therapy but remains at risk in case renal function worsens or urine output decreases Continue to monitor urine output electrolytes and creatinine -nephrology following (4) Asthma-COPD overlap syndrome: Code(s): J44.9 - Chronic obstructive pulmonary disease, unspecified Status: Acute Assessment and Plan: Bronchodilators (5) Pulmonary edema: Code(s): J81.1 - Chronic pulmonary edema Status: Acute Assessment and Plan: See above (6) Elevated troponin: Code(s): R77.8 - Other specified abnormalities of plasma proteins Status: Acute Assessment and Plan: Patient has always had mildly elevated troponin level and has been evaluated by Cardiology in the past. Recent echo reviewed Continue serial troponin Continue aspirin and statin Resume beta-josé (7) Hypertension: Qualifiers: Hypertension type: unspecified Qualified Code(s): I10 - Essential (primary) hypertension Code(s): I10 - Essential (primary) hypertension Status: Acute Assessment and Plan: Continue coreg and clonidine at a lower dose (8) Seizure: Code(s): R56.9 - Unspecified convulsions Status: Acute Assessment and Plan: Continue phenytoin Plan DVT prophylaxis -Lovenox Stress ulcer prophylaxis -Protonix Nutrition -continue tube feeds Code Status - Full Code Total Critical Care Time - 34 minutes Due to a high probability of clinically significant, life threatening deterioration, the patient required my highest level of preparedness to intervene emergently and I personally spent this critical care time directly and personally managing the patient. This critical care time included obt
[2023-05-30] MEDS: MEROPENEM 500 MG in SODIUM CHLORIDE 0.9% IV 100 ML 200 ML IVPB ×2 (09:53→21:07)
--- NOTE | 2023-05-30 10:35 | PM.PNNEP ---
Progress Note: A&P Assessment and Plan (1) ARMIN (acute kidney injury): Code(s): N17.9 - Acute kidney failure, unspecified Status: Acute Assessment and Plan: noted on previous hospitalization here at [place] in April 2022 discharged with a creatinine of 3.7mg/dl at that time suspected etiology was ATN due to infection (COVID + pneumonia) and CHF exacerbation evaluation during April 2023 admission noted: renal ultrasound with medical renal disease (incomplete visualization of left kidney) CPK okay UA with blood and protein along with?granular casts urine electrolytes never done no peripheral eosinophilia or rash serologies (GISELA, ANCA, dsDNA-Ab, antiGBM-ab, complements, and serm/urine immunofixation) were all negative during hospitalization 2 weeks ago (early May 2023), creatinine was still elevated (no evidence of renal recovery) admission creatinine was 3.4mg/dl (on 05/17/23) discharge creatinine was 3.2mg/dl -- possible new baseline? it would seems that her renal function has still not recovered based on admission labs or perhaps she has a new baseline creatinine once again, she remains at risk for INCOME AUDITOR/dialysis however, on previous hospitalizations, she responded to medical therapy... follow trend of repeat labs and UOP (2) Stage 3a chronic kidney disease: Code(s): N18.31 - Chronic kidney disease, stage 3a Status: Chronic Assessment and Plan: creatinine was running around 1.4 - 1.5mg/dl in November 2021 presumably secondary to hypertension and vascular disease as well as CHF suspect component of CKD progression on top of ARMIN/ARF from last hospital admissions (3) Acute and chronic respiratory failure with hypoxia: Code(s): J96.21 - Acute and chronic respiratory failure with hypoxia Status: Acute Assessment and Plan: felt to be secondary to volume overload from CHF and pulmonary edema complicated by asthma and COPD initially responded to BIPAP in ER however, deteriorated on the floor requiring intubation and mechanical ventilation (on 05/27/23) continue IV diuretics - seems reasonable to try bumex instead of lasix (due to longer half-life) consider continuous infusion/gtt if necessary if unresponsive to diuretic therapy, may need INCOME AUDITOR/dialysis to optimize volume status ventilator weaning once more stable (4) Acute exacerbation of CHF (congestive heart failure): Qualifiers: Heart failure type: unspecified Qualified Code(s): I50.9 - Heart failure, unspecified Code(s): I50.9 - Heart failure, unspecified Status: Acute Assessment and Plan: known cardiomyomathy last Echo with EF of 30% continue diuresis follow I/Os, CXR/respiratory status, and daily weights unclear trigger for decompensation...dietary indiscretion? (5) Hypertension: Qualifiers: Hypertension type: unspecified Qualified Code(s): I10 - Essential (primary) hypertension Code(s): I10 - Essential (primary) hypertension Status: Acute Assessment and Plan: reasonable control at this time follow trend of hemodynamics (6) Urinary tract infection: Code(s): N39.0 - Urinary tract infection, site not specified Status: Acute Assessment and Plan: admission UA suggestive culture results noted - E.coli on antibiotics (7) Anemia: Qualifiers: Anemia type: due to chronic kidney disease Chronic kidney disease stage: stage 3 (moderate) Code(s): D64.9 - Anemia, unspecified Status: Chronic Assessment and Plan: presumably due to CKD and recurrent hospitalizations/acute illness follow trend of H/H consider empiric Epogen Discussed case with Dr. Mai. Will continue to follow. Subjective Date/time seen: 05/30/23 10:35 Interval history: Follow-up for acute kidney injury/acute renal failure on chronic kidney disease versus chronic kidney disease.
--- NOTE | 2023-05-30 10:35 | P.PNNP_ITS ---
Progress Note: A&P Assessment and Plan (1) ARMIN (acute kidney injury): Code(s): N17.9 - Acute kidney failure, unspecified Status: Acute Assessment and Plan: * noted on previous hospitalization here at [facility] in April 2022 * discharged with a creatinine of 3.7mg/dl at that time * suspected etiology was ATN due to infection (COVID + pneumonia) and CHF exacerbation * evaluation during April 2023 admission noted: * renal ultrasound with medical renal disease (incomplete visualization of left kidney) * CPK okay * UA with blood and protein along with?granular casts * urine electrolytes never done * no peripheral eosinophilia or rash * serologies (GISELA, ANCA, dsDNA-Ab, antiGBM-ab, complements, and serm/urine immunofixation) were all negative * during hospitalization 2 weeks ago (early May 2023), creatinine was still elevated (no evidence of renal recovery) * admission creatinine was 3.4mg/dl (on 05/17/23) * discharge creatinine was 3.2mg/dl -- possible new baseline? * it would seems that her renal function has still not recovered based on admission labs or perhaps she has a new baseline creatinine * once again, she remains at risk for WIRE WINDING MACHINE TENDER/dialysis * however, on previous hospitalizations, she responded to medical therapy... * follow trend of repeat labs and UOP (2) Stage 3a chronic kidney disease: Code(s): N18.31 - Chronic kidney disease, stage 3a Status: Chronic Assessment and Plan: * creatinine was running around 1.4 - 1.5mg/dl in November 2021 * presumably secondary to hypertension and vascular disease as well as CHF * suspect component of CKD progression on top of ARMIN/ARF from last hospital a dmissions (3) Acute and chronic respiratory failure with hypoxia: Code(s): J96.21 - Acute and chronic respiratory failure with hypoxia Status: Acute Assessment and Plan: * felt to be secondary to volume overload from CHF and pulmonary edema * complicated by asthma and COPD * initially responded to BIPAP in ER * however, deteriorated on the floor requiring intubation and mechanical ventilation (on 05/27/23) * continue IV diuretics - seems reasonable to try bumex instead of lasix (due to longer half-life) * consider continuous infusion/gtt if necessary * if unresponsive to diuretic therapy, may need WIRE WINDING MACHINE TENDER/dialysis to optimize volume status * ventilator weaning once more stable (4) Acute exacerbation of CHF (congestive heart failure): Qualifiers: Heart failure type: unspecified Qualified Code(s): I50.9 - Heart failure, unspecified Code(s): I50.9 - Heart failure, unspecified Status: Acute Assessment and Plan: * known cardiomyomathy * last Echo with EF of 30% * continue diuresis * follow I/Os, CXR/respiratory status, and daily weights * unclear trigger for decompensation...dietary indiscretion? (5) Hypertension: Qualifiers: Hypertension type: unspecified Qualified Code(s): I10 - Essential (primary) hypertension Code(s): I10 - Essential (primary) hypertension Status: Acute Assessment and Plan: * reasonable control at this time * follow trend of hemodynamics (6) Urinary tract infection: Code(s): N39.0 - Urinary tract infection, site not specified Status: Acute Assessment and Plan: * admission UA suggestive * culture results noted - E.coli * on antibiotics (7) Anemia: Qualifiers: Anemia type: due to chronic kidney disease Chronic kidney disease stage: stage 3 (moderate)
--- NOTE | 2023-05-30 10:38 | PCNFU ---
Nutrition Follow-Up Complete: Inadequate Enteral Nutrition Infusion as related to mechanical ventilation as evidenced by overfeeding. Goal: Meet estimated nutritional needs. patient is progressing towards goal. We will continue current goal. Pt current nutrition is Nepro at 25 ml/hr. Nutrition recommendation: Increasing to 45 ml/hr today. Last recorded weight is 144.8 kg, down from 147.8 kg on admit. Bowel Motility: +Bm reported 05/30 Labs Reviewed:GFR 13, BUN 65, Cr 4.3,Alb 3.4 Meds Noted: Protonix, Lovenox,Precedex, Propofol currently at 15 bpxk=322 kcals with plans to discontinue today. Skin: WNL Additional Notes: Patient remains on mechanical vent. Tube feedings being tolerated of Nepro at 25 ml/hr, plans to increased tube feedings to 45 ml/hr today 2/2 to decreased propofol rate. Protein Modular of Prosource BID ordered for protein needs. Total nutrition: 1942 kcals/120 gm protein/720 ml water. Flush 30 ml q 4 hours. Agree with diet orders. Will monitor weight, labs, skin , tube feeding tolerance, meds every Monday and Monday.
[2023-05-30 10:44] LABS: Glucose Point of Care 105 mg/dl (65-105)
--- NOTE | 2023-05-30 11:11 | P.CDI_ITS ---
CDI Query Clarification Request Documented history of CHF. CHF noted in the assessment and plan. Elevated BNP on 05/27/23 lab work. 05/27/23 chest xray notes CHF, pulmonary edema. Lasix listed as a home medication. Patient receiving Bumex. 04/2023 Echo noted EF 30% Patient presented with shortness of breath, decreased oxygen saturations, requiring supplemental oxygen and intubation for respiratory distress on 05/27/23. Please specify type and acuity of heart failure if known. * Acute * Chronic * Acute on Chronic * Unknown * Systolic * Diastolic * Combined Systolic and Diastolic * Unknown <Sue Ryan RN - Last Filed: 05/30/23 11:19> Clarified Diagnosis Clarified Diagnosis: Acute on chronic diastolic and systolic heart failure <aRdha Pacheco MD - Last Filed: 05/31/23 17:34>
--- NOTE | 2023-05-30 13:50 | PM.IMPN ---
Progress Note: A&P Assessment and Plan (1) Venous insufficiency: Code(s): I87.2 - Venous insufficiency (chronic) (peripheral) Status: Acute (2) CKD (chronic kidney disease) stage 3, GFR 30-59 ml/min: Qualifiers: Chronic kidney disease stage 3 subtype: stage 3a (GFR 45-59) Qualified Code(s): N18.31 - Chronic kidney disease, stage 3a Code(s): N18.30 - Chronic kidney disease, stage 3 unspecified Status: Acute (3) Acute exacerbation of chronic obstructive pulmonary disease: Code(s): J44.1 - Chronic obstructive pulmonary disease with (acute) exacerbation Status: Acute (4) Obstructive apnea: Code(s): G47.33 - Obstructive sleep apnea (adult) (pediatric) Status: Acute (5) Hypernatremia: Code(s): E87.0 - Hyperosmolality and hypernatremia Status: Acute (6) Electrolyte abnormality: Code(s): E87.8 - Other disorders of electrolyte and fluid balance, not elsewhere classified Status: Acute (7) Non-ST elevation (NSTEMI) myocardial infarction: Code(s): I21.4 - Non-ST elevation (NSTEMI) myocardial infarction Status: Acute (8) Acute kidney injury superimposed on CKD: Code(s): N17.9 - Acute kidney failure, unspecified; N18.9 - Chronic kidney disease, unspecified Status: Acute (9) Acute exacerbation of CHF (congestive heart failure): Qualifiers: Heart failure type: unspecified Qualified Code(s): I50.9 - Heart failure, unspecified Code(s): I50.9 - Heart failure, unspecified Status: Acute (10) ARMIN (acute kidney injury): Code(s): N17.9 - Acute kidney failure, unspecified Status: Acute (11) Acute non-ST elevation myocardial infarction (NSTEMI): Code(s): I21.4 - Non-ST elevation (NSTEMI) myocardial infarction Status: Acute Plan (1) Acute and chronic respiratory failure with hypoxia: ?Code(s): J96.21 - Acute and chronic respiratory failure with hypoxia ?Status:?Acute ?Assessment and Plan: Due to multiple factors, including acute heart failure, COPD, Chest x-ray on presentation IMPRESSION: Cardiomegaly, extensive bilateral pulmonary infiltrates, suggesting congestive heart failure, pulmonary edema, increased in severity since 05/22/2023? WBC normal afebrile.? Respiratory secretions clear watery during intubation and procalcitonin level was low ?patient initially improved with BiPAP in the ER but later deteriorated on the floor Intubated now emergently in ICU and placed on mechanical ventilation Management per truss builder continue Lasix IV and increase the dose to 80 mg BID Continue to treat for CHf excerbation (2) Acute exacerbation of CHF (congestive heart failure): ?Qualifiers: ?Heart failure type:?unspecified? Qualified Code(s):?I50.9 - Heart failure, unspecified ?Code(s): I50.9 - Heart failure, unspecified ?Status:?Acute ?Assessment and Plan: Most recent echocardiogram in April 2023 Left ventricular dilation with severe global systolic dysfunction ejection fraction of 30%. ?. No obvious valve dysfunction although quality of the exam is very challenging. Continue to diurese (3) CKD (chronic kidney disease) stage 3, GFR 30-59 ml/min: ?Qualifiers: ? volume overloaded and is being given diuretics.? Nephrology consult On past admission patient has seen at risk of requiring LAND SURVEYING SURVEY WORKER but improved with medical therapy Monitor urine output electrolytes and creatinine (4) Asthma-COPD overlap syndrome: ?Code(s): J44.9 - Chronic obstructive pulmonary disease, unspecified ?Status:?Acute ?Assessment and Plan: Bronchodilators (5) Pulmonary edema: ?Code(s): J81.1 - Chronic pulmonary edema ?Status:?Acute ?Assessment and Plan: See above (6) Elevated troponin: ?Code(s): R77.8 - Other specified abnormalities of plasma proteins ?Status:?Acute ?Assessment and Plan: Continue serial troponin Continu
[2023-05-30] MEDS: PROPOFOL IV EMULSION 100 ML 4.46 MG IV CONT (16:11)
[2023-05-30] MEDS: dexmedeTOMIDine 400 MCG/100 ML 400 MCG/100 ML BAG 21.72 MCG IV CONT (16:12)
[2023-05-30 17:27] LABS: Glucose Point of Care 123 mg/dl (65-105)
[2023-05-30 20:02] LABS: Osmolality, Urine 375 mOsm/kg (50-1200)
[2023-05-30] MEDS: dexmedeTOMIDine 400 MCG/100 ML 400 MCG/100 ML BAG 25.34 MCG IV CONT (20:18)
[2023-05-30] MEDS: hydrALAZINE HCL 20 MG/ML VIAL IV PUSH (23:12)
[2023-05-31] VITALS (31 sets, daily range): BP systolic 137–174; BP diastolic 59–87; PULSE 69–86; RESP 18–25; TEMP 36.7–37.4; O2SAT 96–100
[2023-05-31] MEDS: dexmedeTOMIDine 400 MCG/100 ML 400 MCG/100 ML BAG 25.34 MCG IV CONT ×2 (00:05→03:58)
[2023-05-31 02:29] LABS: Glucose Point of Care 130 mg/dl (65-105)
[2023-05-31 04:48] LABS: Basophils Percent Auto 0.3 % (0.2-1.2); Eosinophils Absolute Auto 0.3 K/mm3 (0-0.3); Eosinophils Percent Auto 4.9 % (0-4.4); Hematocrit 26.5 % (37.0-47.0); Hemoglobin 7.9 g/dL (12.0-15.0); Immature Granulocyte Absolute 0.04 K/mm3 (0.00-0.031); Immature Granulocyte Percent A 0.7 % (0-0.5); Lymphocytes Absolute Auto 1.16 K/mm3 (0.9-3.2); Lymphocytes Percent Auto 19.6 % (18.3-44.2); Mean Corpuscular HGB Conc 29.8 g/dl (32-36); Mean Corpuscular Hemoglobin 28.7 pg (26-34); Mean Corpuscular Volume 96.4 fl (80-100); Mean Platelet Volume 10.6 fl (7.4-10.4); Monocytes Absolute Auto 0.5 K/mm3 (0.1-0.6); Monocytes Percent Auto 7.6 % (2.6-8.5); Neutrophils Percent Auto 66.9 % (45.5-73.1); Platelet Count Result 153 k/mm3 (150-375); Red Blood Count 2.75 M/mm3 (4.2-5.4); Red Cell Distribution Width 15.7 % (11.5-14.5); White Blood Count 5.9 K/mm3 (4.5-10.0)
[2023-05-31 04:58] LABS: Alanine Aminotransferase 24 U/L (6-35); Albumin Level 3.4 g/dL (3.5-5.1); Alkaline Phosphatase 108 U/L (38-126); Anion Gap 11 mmol/L (8-16); Aspartate Amino Transferase 31 U/L (14-36); Bilirubin,Total 0.3 mg/dL (0.2-1.3); Blood Urea Nitrogen 72 mg/dL (7-17); Calcium 8.4 mg/dL (8.4-10.2); Carbon Dioxide 23 mmol/L (22-30); Chloride 109 mmol/L (98-107); Estimated CRCL calculation 22 ml/min; Estimated Glomerular Filt Rate 14; Glucose 131 mg/dL (65-110); Magnesium 2.1 mg/dL (1.6-2.3); Phosphorus 6.7 mg/dL (2.5-4.5); Sodium 143 mmol/L (137-145); Triglycerides 213 mg/dL (<150)
[2023-05-31 05:14] LABS: Alveolar/Arterial O2 Gradient 80.1 mmHg; Base Excess ABG -2.8 mEq/l (+/-2.0); Carboxyhemoglobin 0.2 % THb (0-2.0); Fractional Inspired Oxygen 30 %; HCO3 ABG 21.5 mEq/l (22.0-26.0); Methemoglobin ABG 0.3 %THb (0-1.5); Oxygen Content ABG 13.8 %vol (16.0-22.0); Oxygen Saturation ABG 97.1 % (95.0-100.0); Oxyhemoglobin 95.4 % THb (90.0-100.0); PCO2 ABG 35.4 mmHg (35.0-45.0); PO2 ABG 92.2 mmHg (80.0-100.0); PO2 FiO2 Ratio Arterial Blood 3.07 %; Reduced Hemoglobin 4.1 %THb (0-5.0); Total Hemoglobin 10.2 g/dL (12.0-18.0); pH ABG 7.402 (7.350-7.450)
[2023-05-31 05:15] LABS: Device VENTILATOR; Modified Allen's Test Pass; Site Drawn RIGHT RADIAL
[2023-05-31 05:16] LABS: Arterial Blood Gas Vent Mode CMV; Arterial Blood Gas Ventilator rate 20 /MIN
[2023-05-31 05:17] LABS: Arterial Blood Gas PEEP 8 cmH2O; Arterial Blood Gas Tidal Volume 400 ml
[2023-05-31] MEDS: cloNIDine HCL 0.1 MG TABLET PO (05:59)
[2023-05-31] MEDS: CENTRAL LINE FLUSH 10 ML IV PUSH ×3 (05:59→21:10)
[2023-05-31] MEDS: PANTOPRAZOLE SODIUM IV 40 MG VIAL IV PUSH (07:57)
[2023-05-31] MEDS: ENOXAPARIN 40 MG/0.4 ML SYRINGE SUB-Q (07:57)
[2023-05-31] MEDS: ATORVASTATIN 40 MG TABLET 80 MG PO (07:57)
[2023-05-31] MEDS: ASPIRIN 325 MG TABLET PO (07:57)
[2023-05-31] MEDS: BUMETANIDE INJ 1 MG/4 ML VIAL IV PUSH ×2 (07:57→16:41)
[2023-05-31] MEDS: MINERAL OIL/WHITE PETROLATUM OINTMENT 1 APPLIC EACH EYE ×2 (07:58→21:10)
[2023-05-31] MEDS: TOLNAFTATE 1% POWDER 45 GM BTL 1 APPLIC TOPICAL ×2 (07:59→20:19)
[2023-05-31] MEDS: MEROPENEM 500 MG in SODIUM CHLORIDE 0.9% IV 100 ML 200 ML IVPB ×2 (08:03→21:09)
[2023-05-31] MEDS: SACUBITRIL/VALSARTAN 49-51 MG TABLET 1 TABLET PO ×2 (08:15→16:41)
[2023-05-31] MEDS: carvediloL 12.5 MG TABLET PO ×2 (08:15→20:19)
[2023-05-31] MEDS: dexmedeTOMIDine 400 MCG/100 ML 400 MCG/100 ML BAG 18.1 MCG IV CONT ×3 (08:24→19:09)
--- NOTE | 2023-05-31 08:28 | WPDINTPN ---
Progress Note: A&P Assessment and Plan (1) Acute and chronic respiratory failure with hypoxia: Code(s): J96.21 - Acute and chronic respiratory failure with hypoxia Status: Acute Assessment and Plan: 05/27: Presented the ED with shortness of breath, requiring intubation secondary to CHF exacerbation -WBC normal, afebrile. Respiratory secretions clear watery during intubation and procalcitonin level was low -currently on CMV mode of ventilation, peep of 8 in 30% FiO2 -ABG, chest x-ray and vent settings reviewed -continue diuresed -continue bronchodilators -PCR for influenza RSV and COVID were negative -off propofol -currently on Precedex infusion, will place patient on pressure support ventilation and evaluate for extubation (2) Acute exacerbation of CHF (congestive heart failure): Qualifiers: Heart failure type: combined systolic and diastolic Qualified Code(s): I50.43 - Acute on chronic combined systolic (congestive) and diastolic (congestive) heart failure Code(s): I50.9 - Heart failure, unspecified Status: Acute Assessment and Plan: Acute on chronic diastolic and systolic heart failure Most recent echocardiogram in April 2023 Summary ? 1. Technically difficult exam because of obesity/definity contrast injected to improve visualization. ? 2. Left ventricular dilation with severe global systolic dysfunction ejection fraction of 30%. ? 3. Diastolic noncompliance. ? 4. Left atrial enlarged. ? 5. No obvious valve dysfunction although quality of the exam is very challenging. -Continue diuresis for volume overload -Add Entresto -will increase Coreg (3) CKD (chronic kidney disease) stage 3, GFR 30-59 ml/min: Qualifiers: Chronic kidney disease stage 3 subtype: stage 3a (GFR 45-59) Qualified Code(s): N18.31 - Chronic kidney disease, stage 3a Code(s): N18.30 - Chronic kidney disease, stage 3 unspecified Status: Acute Assessment and Plan: Patient has chronic kidney disease with recent acute kidney injury which was managed medically and did not require hemodialysis. She was discharged with creatinine 3.2 which was stable on presentation Patient does appear to be volume overloaded and has been started on diuretics. She has responded to diuretics and making urine On past admission patient has seen at risk of requiring OXYGEN EQUIPMENT PREPARER but improved with medical therapy but remains at risk in case renal function worsens or urine output decreases Continue to monitor urine output electrolytes and creatinine -nephrology following (4) Asthma-COPD overlap syndrome: Code(s): J44.9 - Chronic obstructive pulmonary disease, unspecified Status: Acute Assessment and Plan: Bronchodilators (5) Pulmonary edema: Code(s): J81.1 - Chronic pulmonary edema Status: Acute Assessment and Plan: See above (6) Elevated troponin: Code(s): R77.8 - Other specified abnormalities of plasma proteins Status: Acute Assessment and Plan: Patient has always had mildly elevated troponin level and has been evaluated by Cardiology in the past. Recent echo reviewed Continue serial troponin Continue aspirin and statin Resume beta-josé (7) Hypertension: Qualifiers: Hypertension type: unspecified Qualified Code(s): I10 - Essential (primary) hypertension Code(s): I10 - Essential (primary) hypertension Status: Acute Assessment and Plan: Increase Coreg, patient started on Entresto, on diuretics -p.r.n. hydralazine and labetalol (8) Seizure: Code(s): R56.9 - Unspecified convulsions Status: Acute Assessment and Plan: Continue phenytoin Plan DVT prophylaxis -Lovenox Stress ulcer prophylaxis -Protonix Nutrition -continue tube feeds Code Status - Full Code Total Critical Care Time - 33 minutes Due to a high probability of clinically significant, life threatening deterioration, the pat
--- NOTE | 2023-05-31 11:36 | PCFNICU ---
ICU Rounding Note: Pt current nutrition is Nepro at 50 ml/hr with Prosource once daily. Last recorded weight is 152 kg, up from 147.8 kg. Bowel Motility: +Bm reported 05/31 Labs Reviewed:TG 213, GFR 14, Cr 4.2,BUN 72, Alb 3.4 Meds Noted:Precedex,Lipitor, Coreg, Protonix Skin:WNL Additional Notes: Patient remains on mechanical vent. Tube feeding of Nepro at 50 ml/hr and tolerating. Protein modular down from BID to once per day. Total Nutrition: 2060 kcals/109 gms protein/800 ml water. Flush 30 ml q 4 hours. Agree with diet orders. Following daily in ICU rounds. Will monitor weight, labs, skin , tube feeding tolerance, meds every Monday and Monday.
[2023-05-31 12:03] LABS: Glucose Point of Care 121 mg/dl (65-105)
[2023-05-31] MEDS: hydrALAZINE HCL 20 MG/ML VIAL IV PUSH (13:19)
[2023-05-31] MEDS: cloNIDine HCL 0.2 MG TABLET PO ×2 (13:19→20:19)
--- NOTE | 2023-05-31 13:20 | P.PNNP_ITS ---
Progress Note: A&P Assessment and Plan (1) ARMIN (acute kidney injury): Code(s): N17.9 - Acute kidney failure, unspecified Status: Acute Assessment and Plan: * noted on previous hospitalization here at [facility] in April 2022 * discharged with a creatinine of 3.7mg/dl at that time * suspected etiology was ATN due to infection (COVID + pneumonia) and CHF exacerbation * evaluation during April 2023 admission noted: * renal ultrasound with medical renal disease (incomplete visualization of left kidney) * CPK okay * UA with blood and protein along with?granular casts * urine electrolytes never done * no peripheral eosinophilia or rash * serologies (GISELA, ANCA, dsDNA-Ab, antiGBM-ab, complements, and serm/urine immunofixation) were all negative * during hospitalization 2 weeks ago (early May 2023), creatinine was still elevated (no evidence of renal recovery) * admission creatinine was 3.4mg/dl (on 05/17/23) * discharge creatinine was 3.2mg/dl -- possible new baseline? * it would seems that her renal function has still not recovered based on admission labs or perhaps she has a new baseline creatinine * once again, she remains at risk for CLINICAL TECHNICIAN/dialysis * however, on previous hospitalizations, she responded to medical therapy... * follow trend of repeat labs and UOP (2) Stage 3a chronic kidney disease: Code(s): N18.31 - Chronic kidney disease, stage 3a Status: Chronic Assessment and Plan: * creatinine was running around 1.4 - 1.5mg/dl in November 2021 * presumably secondary to hypertension and vascular disease as well as CHF * suspect component of CKD progression on top of ARMIN/ARF from last hospital a dmissions (3) Acute and chronic respiratory failure with hypoxia: Code(s): J96.21 - Acute and chronic respiratory failure with hypoxia Status: Acute Assessment and Plan: * felt to be secondary to volume overload from CHF and pulmonary edema * complicated by asthma and COPD * initially responded to BIPAP in ER * however, deteriorated on the floor requiring intubation and mechanical ventilation (on 05/27/23) * continue IV diuretics - on IV bumex instead of lasix (due to longer half-life) * consider continuous infusion/gtt if necessary * if unresponsive to diuretic therapy, may need CLINICAL TECHNICIAN/dialysis to optimize volume status * ventilator weaning once more stable (4) Acute exacerbation of CHF (congestive heart failure): Qualifiers: Heart failure type: combined systolic and diastolic Qualified Code(s): I50.43 - Acute on chronic combined systolic (congestive) and diastolic (congestive) heart failure Code(s): I50.9 - Heart failure, unspecified Status: Acute Assessment and Plan: * known cardiomyomathy * last Echo with EF of 30% * continue diuresis * follow I/Os, CXR/respiratory status, and daily weights * unclear trigger for decompensation...dietary indiscretion? (5) Hypertension: Qualifiers: Hypertension type: unspecified Qualified Code(s): I10 - Essential (primary) hypertension Code(s): I10 - Essential (primary) hypertension Status: Acute Assessment and Plan: * reasonable control at this time * follow trend of hemodynamics (6) Urinary tract infection: Code(s): N39.0 - Urinary tract infection, site not specified Status: Acute Assessment and Plan: * admission UA suggestive * culture results noted - E.coli * on antibiotics (7) Anemia: Qualifiers: Anemia type: due to chronic kidney d
--- NOTE | 2023-05-31 13:20 | PM.PNNEP ---
Progress Note: A&P Assessment and Plan (1) ARMIN (acute kidney injury): Code(s): N17.9 - Acute kidney failure, unspecified Status: Acute Assessment and Plan: noted on previous hospitalization here at [facility] in April 2022 discharged with a creatinine of 3.7mg/dl at that time suspected etiology was ATN due to infection (COVID + pneumonia) and CHF exacerbation evaluation during April 2023 admission noted: renal ultrasound with medical renal disease (incomplete visualization of left kidney) CPK okay UA with blood and protein along with?granular casts urine electrolytes never done no peripheral eosinophilia or rash serologies (GISELA, ANCA, dsDNA-Ab, antiGBM-ab, complements, and serm/urine immunofixation) were all negative during hospitalization 2 weeks ago (early May 2023), creatinine was still elevated (no evidence of renal recovery) admission creatinine was 3.4mg/dl (on 05/17/23) discharge creatinine was 3.2mg/dl -- possible new baseline? it would seems that her renal function has still not recovered based on admission labs or perhaps she has a new baseline creatinine once again, she remains at risk for OYSTER PREPARER/dialysis however, on previous hospitalizations, she responded to medical therapy... follow trend of repeat labs and UOP (2) Stage 3a chronic kidney disease: Code(s): N18.31 - Chronic kidney disease, stage 3a Status: Chronic Assessment and Plan: creatinine was running around 1.4 - 1.5mg/dl in November 2021 presumably secondary to hypertension and vascular disease as well as CHF suspect component of CKD progression on top of ARMIN/ARF from last hospital admissions (3) Acute and chronic respiratory failure with hypoxia: Code(s): J96.21 - Acute and chronic respiratory failure with hypoxia Status: Acute Assessment and Plan: felt to be secondary to volume overload from CHF and pulmonary edema complicated by asthma and COPD initially responded to BIPAP in ER however, deteriorated on the floor requiring intubation and mechanical ventilation (on 05/27/23) continue IV diuretics - on IV bumex instead of lasix (due to longer half-life) consider continuous infusion/gtt if necessary if unresponsive to diuretic therapy, may need OYSTER PREPARER/dialysis to optimize volume status ventilator weaning once more stable (4) Acute exacerbation of CHF (congestive heart failure): Qualifiers: Heart failure type: combined systolic and diastolic Qualified Code(s): I50.43 - Acute on chronic combined systolic (congestive) and diastolic (congestive) heart failure Code(s): I50.9 - Heart failure, unspecified Status: Acute Assessment and Plan: known cardiomyomathy last Echo with EF of 30% continue diuresis follow I/Os, CXR/respiratory status, and daily weights unclear trigger for decompensation...dietary indiscretion? (5) Hypertension: Qualifiers: Hypertension type: unspecified Qualified Code(s): I10 - Essential (primary) hypertension Code(s): I10 - Essential (primary) hypertension Status: Acute Assessment and Plan: reasonable control at this time follow trend of hemodynamics (6) Urinary tract infection: Code(s): N39.0 - Urinary tract infection, site not specified Status: Acute Assessment and Plan: admission UA suggestive culture results noted - E.coli on antibiotics (7) Anemia: Qualifiers: Anemia type: due to chronic kidney disease Chronic kidney disease stage: stage 3 (moderate) Code(s): D64.9 - Anemia, unspecified Status: Chronic Assessment and Plan: presumably due to CKD and recurrent hospitalizations/acute illness follow trend of H/H consider empiric Epogen Will continue to follow. Subjective Date/time seen: 05/31/23 13:20 Interval history: Follow-up for acute kidney injury/acute renal failure on chronic kidney disease versu
[2023-05-31 18:21] LABS: Glucose Point of Care 133 mg/dl (65-105)
[2023-06-01] VITALS (25 sets, daily range): BP systolic 134–154; BP diastolic 70–100; PULSE 70–85; RESP 18–20; TEMP 36.8–37.7; O2SAT 94–100
[2023-06-01 00:12] LABS: Glucose Point of Care 126 mg/dl (65-105)
[2023-06-01] MEDS: dexmedeTOMIDine 400 MCG/100 ML 400 MCG/100 ML BAG 18.1 MCG IV CONT (00:12)
[2023-06-01 05:03] LABS: Alveolar/Arterial O2 Gradient 84.2 mmHg; Base Excess ABG -4.2 mEq/l (+/-2.0); Carboxyhemoglobin 0.3 % THb (0-2.0); Fractional Inspired Oxygen 30 %; HCO3 ABG 20.4 mEq/l (22.0-26.0); Methemoglobin ABG 0.2 %THb (0-1.5); Oxygen Saturation ABG 96.7 % (95.0-100.0); Oxyhemoglobin 94.9 % THb (90.0-100.0); PCO2 ABG 35.3 mmHg (35.0-45.0); PO2 ABG 88.2 mmHg (80.0-100.0); PO2 FiO2 Ratio Arterial Blood 2.94 %; Reduced Hemoglobin 4.6 %THb (0-5.0); Total Hemoglobin 8.9 g/dL (12.0-18.0)
[2023-06-01 05:05] LABS: Device VENTILATOR; Modified Allen's Test Pass; Site Drawn RIGHT RADIAL
[2023-06-01 05:06] LABS: Basophils Percent Auto 0.8 % (0.2-1.2); Eosinophils Absolute Auto 0.3 K/mm3 (0-0.3); Eosinophils Percent Auto 5.4 % (0-4.4); Hematocrit 26.9 % (37.0-47.0); Hemoglobin 7.8 g/dL (12.0-15.0); Immature Granulocyte Absolute 0.02 K/mm3 (0.00-0.031); Immature Granulocyte Percent A 0.4 % (0-0.5); Lymphocytes Percent Auto 20.6 % (18.3-44.2); Mean Corpuscular Hemoglobin 28.3 pg (26-34); Mean Corpuscular Volume 97.5 fl (80-100); Monocytes Absolute Auto 0.4 K/mm3 (0.1-0.6); Monocytes Percent Auto 7.7 % (2.6-8.5); Neutrophils Absolute Auto 3.5 K/mm3 (1.3-6.7); Neutrophils Percent Auto 65.1 % (45.5-73.1); Platelet Count Result 161 k/mm3 (150-375); Red Blood Count 2.76 M/mm3 (4.2-5.4); Red Cell Distribution Width 15.6 % (11.5-14.5); White Blood Count 5.3 K/mm3 (4.5-10.0)
[2023-06-01 05:06] LABS: Arterial Blood Gas PEEP 8 cmH2O; Arterial Blood Gas Tidal Volume 400 ml; Arterial Blood Gas Vent Mode CMV; Arterial Blood Gas Ventilator rate 20 /MIN
[2023-06-01] MEDS: cloNIDine HCL 0.2 MG TABLET PO ×3 (05:11→20:01)
[2023-06-01] MEDS: CENTRAL LINE FLUSH 10 ML IV PUSH ×3 (05:12→20:30)
[2023-06-01] MEDS: dexmedeTOMIDine 400 MCG/100 ML 400 MCG/100 ML BAG 10.86 MCG IV CONT (05:12)
[2023-06-01 05:20] LABS: Alanine Aminotransferase 34 U/L (6-35); Albumin Level 3.3 g/dL (3.5-5.1); Alkaline Phosphatase 102 U/L (38-126); Anion Gap 9 mmol/L (8-16); Aspartate Amino Transferase 34 U/L (14-36); Bilirubin,Total 0.3 mg/dL (0.2-1.3); Blood Urea Nitrogen 76 mg/dL (7-17); Calcium 8.5 mg/dL (8.4-10.2); Carbon Dioxide 25 mmol/L (22-30); Chloride 107 mmol/L (98-107); Estimated CRCL calculation 22 ml/min; Estimated Glomerular Filt Rate 14; Glucose 139 mg/dL (65-110); Magnesium 2.4 mg/dL (1.6-2.3); Phosphorus 6.2 mg/dL (2.5-4.5); Potassium 3.9 mmol/L (3.4-5.0); Sodium 141 mmol/L (137-145)
[2023-06-01] MEDS: SACUBITRIL/VALSARTAN 49-51 MG TABLET 1 TABLET PO ×2 (07:59→17:32)
[2023-06-01] MEDS: LABETALOL HCL 100 MG TABLET 200 MG PO ×2 (07:59→20:00)
[2023-06-01] MEDS: ASPIRIN 325 MG TABLET PO (08:00)
[2023-06-01] MEDS: carvediloL 25 MG TABLET PO ×2 (08:00→20:00)
[2023-06-01] MEDS: ATORVASTATIN 40 MG TABLET 80 MG PO (08:00)
[2023-06-01] MEDS: FUROSEMIDE INJ 40 MG/4 ML VIAL IV PUSH ×3 (08:01→17:32)
[2023-06-01] MEDS: PANTOPRAZOLE SODIUM IV 40 MG VIAL IV PUSH (08:01)
[2023-06-01] MEDS: MEROPENEM 500 MG in SODIUM CHLORIDE 0.9% IV 100 ML 200 ML IVPB ×2 (08:02→20:30)
[2023-06-01] MEDS: ENOXAPARIN 40 MG/0.4 ML SYRINGE SUB-Q (08:03)
[2023-06-01] MEDS: MINERAL OIL/WHITE PETROLATUM OINTMENT 1 APPLIC EACH EYE (08:03)
[2023-06-01] MEDS: ISOSORBIDE MONONITRATE 10 MG TABLET PO ×2 (08:03→17:32)
[2023-06-01] MEDS: EPOETIN ALFA-EPBX 10,000 UNITS/ML VIAL 10000 UNITS SUB-Q (08:03)
[2023-06-01] MEDS: TOLNAFTATE 1% POWDER 45 GM BTL 1 APPLIC TOPICAL (08:04)
--- NOTE | 2023-06-01 09:01 | P.PNNP_ITS ---
Progress Note: A&P Assessment and Plan (1) ARMIN (acute kidney injury): Code(s): N17.9 - Acute kidney failure, unspecified Status: Acute Assessment and Plan: * noted on previous hospitalization here at [facility] in April 2022 * discharged with a creatinine of 3.7mg/dl at that time * suspected etiology was ATN due to infection (COVID + pneumonia) and CHF exacerbation * evaluation during April 2023 admission noted: * renal ultrasound with medical renal disease (incomplete visualization of left kidney) * CPK okay * UA with blood and protein along with?granular casts * urine electrolytes never done * no peripheral eosinophilia or rash * serologies (GISELA, ANCA, dsDNA-Ab, antiGBM-ab, complements, and serm/urine immunofixation) were all negative * during hospitalization 2 weeks ago (early May 2023), creatinine was still elevated (no evidence of renal recovery) * admission creatinine was 3.4mg/dl (on 05/17/23) * discharge creatinine was 3.2mg/dl -- possible new baseline? * it would seems that her renal function has still not recovered based on admission labs or perhaps she has a new baseline creatinine * once again, she remains at risk for PREBOARDER/dialysis * however, on previous hospitalizations, she responded to medical therapy * she appears to be responding to medical therapy once again * follow trend of repeat labs and UOP (2) Stage 3a chronic kidney disease: Code(s): N18.31 - Chronic kidney disease, stage 3a Status: Chronic Assessment and Plan: * creatinine was running around 1.4 - 1.5mg/dl in November 2021 * presumably secondary to hypertension and vascular disease as well as CHF * suspect component of CKD progression on top of ARMIN/ARF from last hospital admissions (3) Acute and chronic respiratory failure with hypoxia: Code(s): J96.21 - Acute and chronic respiratory failure with hypoxia Status: Acute Assessment and Plan: * felt to be secondary to volume overload from CHF and pulmonary edema * complicated by asthma and COPD * initially responded to BIPAP in ER * however, deteriorated on the floor requiring intubation and mechanical ventila tion (on 05/27/23) * continue IV diuretics * continue ventilator weaning (4) Acute exacerbation of CHF (congestive heart failure): Qualifiers: Heart failure type: combined systolic and diastolic Qualified Code(s): I50.43 - Acute on chronic combined systolic (congestive) and diastolic (congestive) heart failure Code(s): I50.9 - Heart failure, unspecified Status: Acute Assessment and Plan: * known cardiomyomathy * last Echo with EF of 30% * continue diuresis * follow I/Os, CXR/respiratory status, and daily weights * unclear trigger for decompensation...dietary indiscretion? * I worry her recurrent admissions for this will continue to push her to the necessity of PREBOARDER/dialysis... (5) Hypertension: Qualifiers: Hypertension type: unspecified Qualified Code(s): I10 - Essential (primary) hypertension Code(s): I10 - Essential (primary) hypertension Status: Acute Assessment and Plan: * reasonable control at this time * follow trend of hemodynamics (6) Urinary tract infection: Code(s): N39.0 - Urinary tract infection, site not specified Status: Acute Assessment and Plan: * admission UA suggestive * culture results noted - E.coli * on antibiotics (7) Anemia: Qualifiers: Anemia type: due to chronic kidney disease Chronic kidney disease
--- NOTE | 2023-06-01 09:01 | PM.PNNEP ---
Progress Note: A&P Assessment and Plan (1) ARMIN (acute kidney injury): Code(s): N17.9 - Acute kidney failure, unspecified Status: Acute Assessment and Plan: noted on previous hospitalization here at [facility] in April 2022 discharged with a creatinine of 3.7mg/dl at that time suspected etiology was ATN due to infection (COVID + pneumonia) and CHF exacerbation evaluation during April 2023 admission noted: renal ultrasound with medical renal disease (incomplete visualization of left kidney) CPK okay UA with blood and protein along with?granular casts urine electrolytes never done no peripheral eosinophilia or rash serologies (GISELA, ANCA, dsDNA-Ab, antiGBM-ab, complements, and serm/urine immunofixation) were all negative during hospitalization 2 weeks ago (early May 2023), creatinine was still elevated (no evidence of renal recovery) admission creatinine was 3.4mg/dl (on 05/17/23) discharge creatinine was 3.2mg/dl -- possible new baseline? it would seems that her renal function has still not recovered based on admission labs or perhaps she has a new baseline creatinine once again, she remains at risk for BUSINESS CENTER REPRESENTATIVE/dialysis however, on previous hospitalizations, she responded to medical therapy she appears to be responding to medical therapy once again follow trend of repeat labs and UOP (2) Stage 3a chronic kidney disease: Code(s): N18.31 - Chronic kidney disease, stage 3a Status: Chronic Assessment and Plan: creatinine was running around 1.4 - 1.5mg/dl in November 2021 presumably secondary to hypertension and vascular disease as well as CHF suspect component of CKD progression on top of ARMIN/ARF from last hospital admissions (3) Acute and chronic respiratory failure with hypoxia: Code(s): J96.21 - Acute and chronic respiratory failure with hypoxia Status: Acute Assessment and Plan: felt to be secondary to volume overload from CHF and pulmonary edema complicated by asthma and COPD initially responded to BIPAP in ER however, deteriorated on the floor requiring intubation and mechanical ventilation (on 05/27/23) continue IV diuretics continue ventilator weaning (4) Acute exacerbation of CHF (congestive heart failure): Qualifiers: Heart failure type: combined systolic and diastolic Qualified Code(s): I50.43 - Acute on chronic combined systolic (congestive) and diastolic (congestive) heart failure Code(s): I50.9 - Heart failure, unspecified Status: Acute Assessment and Plan: known cardiomyomathy last Echo with EF of 30% continue diuresis follow I/Os, CXR/respiratory status, and daily weights unclear trigger for decompensation...dietary indiscretion? I worry her recurrent admissions for this will continue to push her to the necessity of BUSINESS CENTER REPRESENTATIVE/dialysis... (5) Hypertension: Qualifiers: Hypertension type: unspecified Qualified Code(s): I10 - Essential (primary) hypertension Code(s): I10 - Essential (primary) hypertension Status: Acute Assessment and Plan: reasonable control at this time follow trend of hemodynamics (6) Urinary tract infection: Code(s): N39.0 - Urinary tract infection, site not specified Status: Acute Assessment and Plan: admission UA suggestive culture results noted - E.coli on antibiotics (7) Anemia: Qualifiers: Anemia type: due to chronic kidney disease Chronic kidney disease stage: stage 3 (moderate) Code(s): D64.9 - Anemia, unspecified Status: Chronic Assessment and Plan: presumably due to CKD and recurrent hospitalizations/acute illness follow trend of H/H on empiric Epogen Will continue to follow. Subjective Date/time seen: 06/01/23 09:01 Interval history: Follow-up for acute kidney injury/acute renal failure on chronic kidney disease versus chronic kidney disease. Remains int
[2023-06-01 10:17] LABS: Hepatitis B Core Ab Total Nonreactive (Nonreactive)
--- NOTE | 2023-06-01 10:36 | WPDINTPN ---
Progress Note: A&P Assessment and Plan (1) Urinary tract infection: Code(s): N39.0 - Urinary tract infection, site not specified Status: Acute Assessment and Plan: ESBL E coli susceptible to only imipenem, meropenem and Zosyn -continue meropenem (05/30) x5 days (2) Acute and chronic respiratory failure with hypoxia: Code(s): J96.21 - Acute and chronic respiratory failure with hypoxia Status: Acute Assessment and Plan: 05/27: Presented the ED with shortness of breath, requiring intubation secondary to CHF exacerbation -WBC normal, afebrile. Respiratory secretions clear watery during intubation and procalcitonin level was low -currently on CMV mode of ventilation, peep of 8 in 30% FiO2 -ABG, chest x-ray and vent settings reviewed -continue bronchodilators -PCR for influenza RSV and COVID were negative -off propofol -currently on Precedex infusion, -05/31: Tolerated pressure support ventilation 10/8 for 12 hours was then placed on CMV mode of ventilation overnight -06/01: Place patient on PSV 10/8, will decrease to 8/5 and evaluate for extubation today -continue diuresis (3) Acute exacerbation of CHF (congestive heart failure): Qualifiers: Heart failure type: combined systolic and diastolic Qualified Code(s): I50.43 - Acute on chronic combined systolic (congestive) and diastolic (congestive) heart failure Code(s): I50.9 - Heart failure, unspecified Status: Acute Assessment and Plan: Acute on chronic diastolic and systolic heart failure Most recent echocardiogram in April 2023 Summary ? 1. Technically difficult exam because of obesity/definity contrast injected to improve visualization. ? 2. Left ventricular dilation with severe global systolic dysfunction ejection fraction of 30%. ? 3. Diastolic noncompliance. ? 4. Left atrial enlarged. ? 5. No obvious valve dysfunction although quality of the exam is very challenging. -Continue diuresis for volume overload -continue Entresto and Coreg (4) CKD (chronic kidney disease) stage 3, GFR 30-59 ml/min: Qualifiers: Chronic kidney disease stage 3 subtype: stage 3a (GFR 45-59) Qualified Code(s): N18.31 - Chronic kidney disease, stage 3a Code(s): N18.30 - Chronic kidney disease, stage 3 unspecified Status: Acute Assessment and Plan: Patient has chronic kidney disease with recent acute kidney injury which was managed medically and did not require hemodialysis. She was discharged with creatinine 3.2 which was stable on presentation Patient does appear to be volume overloaded and has been started on diuretics. She has responded to diuretics and making urine On past admission patient has seen at risk of requiring MEAT CLERK but improved with medical therapy but remains at risk in case renal function worsens or urine output decreases Continue to monitor urine output electrolytes and creatinine -nephrology following (5) Asthma-COPD overlap syndrome: Code(s): J44.9 - Chronic obstructive pulmonary disease, unspecified Status: Acute Assessment and Plan: Bronchodilators (6) Pulmonary edema: Code(s): J81.1 - Chronic pulmonary edema Status: Acute Assessment and Plan: See above (7) Elevated troponin: Code(s): R77.8 - Other specified abnormalities of plasma proteins Status: Acute Assessment and Plan: Patient has always had mildly elevated troponin level and has been evaluated by Cardiology in the past. Recent echo reviewed Continue serial troponin Continue aspirin and statin On Coreg (8) Hypertension: Qualifiers: Hypertension type: unspecified Qualified Code(s): I10 - Essential (primary) hypertension Code(s): I10 - Essential (primary) hypertension Status: Acute Assessment and Plan: Continue isosorbide mononitrate, and Entresto, labetalol, Lasix, clonidine, Coreg, -p.r.n. hydralazine and labetalol -bloluis
--- NOTE | 2023-06-01 10:38 | PCFNICU ---
ICU Rounding Note: Pt current nutrition is NPO, tube feeding: Nepro at 50ml/hr with prosource. Nutrition recommendation: Hold for possible extubation Last recorded weight is 149.5 kg. Bowel Motility: +BM 125 Labs Reviewed: Hgb:7.8, HCT:26.9, Alb:3.3, BUN:76, Cr:4.1, Phos:6.2, M.4 Meds Noted: precedex, lipitor, coreg, protonix, lasix Skin: WNL Additional Notes: Pt remains on mechanical vent. Tube feedings of Nepro at 50ml/hr were running. Tube feeding is currently on hold for possible extubation today. Following daily in ICU rounds. Will monitor weight, labs, skin , tube feeding tolerance, meds every Monday and Monday.
[2023-06-01 11:27] LABS: Glucose Point of Care 101 mg/dl (65-105)
[2023-06-01 12:08] LABS: Alveolar/Arterial O2 Gradient 77.8 mmHg; Base Excess ABG -3.7 mEq/l (+/-2.0); Fractional Inspired Oxygen 30 %; HCO3 ABG 20.9 mEq/l (22.0-26.0); Oxygen Content ABG 12.3 %vol (16.0-22.0); Oxygen Saturation ABG 97.1 % (95.0-100.0); Oxyhemoglobin 95.2 % THb (90.0-100.0); PCO2 ABG 36.2 mmHg (35.0-45.0); PO2 ABG 93.6 mmHg (80.0-100.0); PO2 FiO2 Ratio Arterial Blood 3.12 %; Total Hemoglobin 9.1 g/dL (12.0-18.0)
[2023-06-01 12:09] LABS: Device VENTILATOR; Modified Allen's Test Pass; Site Drawn RIGHT RADIAL
[2023-06-01 12:10] LABS: Arterial Blood Gas PEEP 5 cmH2O; Arterial Blood Gas Vent Mode SPONTANEOUS
[2023-06-01 12:11] LABS: Arterial Blood Gas Pressure Support 8 cmH2O
[2023-06-01 18:09] LABS: Glucose Point of Care 95 mg/dl (65-105)
[2023-06-02] VITALS (19 sets, daily range): BP systolic 125–204; BP diastolic 67–109; PULSE 66–91; RESP 16–20; TEMP 36.6–37.6; O2SAT 92–100
[2023-06-02 00:40] LABS: Glucose Point of Care 84 mg/dl (65-105)
[2023-06-02] MEDS: TOLNAFTATE 1% POWDER 45 GM BTL 1 APPLIC TOPICAL ×3 (00:48→21:21)
[2023-06-02] MEDS: cloNIDine HCL 0.2 MG TABLET PO (05:22)
[2023-06-02] MEDS: CENTRAL LINE FLUSH 10 ML IV PUSH ×3 (05:23→21:23)
[2023-06-02 05:49] LABS: Hematocrit 27.8 % (37.0-47.0); Hemoglobin 8.5 g/dL (12.0-15.0); Mean Corpuscular HGB Conc 30.6 g/dl (32-36); Mean Corpuscular Hemoglobin 29.2 pg (26-34); Mean Corpuscular Volume 95.5 fl (80-100); Mean Platelet Volume 11.3 fl (7.4-10.4); Platelet Count Result 192 k/mm3 (150-375); Red Blood Count 2.91 M/mm3 (4.2-5.4); Red Cell Distribution Width 15.4 % (11.5-14.5); White Blood Count 6.8 K/mm3 (4.5-10.0)
[2023-06-02] MEDS: hydrALAZINE HCL 20 MG/ML VIAL IV PUSH (06:06)
[2023-06-02 06:07] LABS: Alanine Aminotransferase 36 U/L (6-35); Albumin Level 3.5 g/dL (3.5-5.1); Alkaline Phosphatase 119 U/L (38-126); Anion Gap 10 mmol/L (8-16); Aspartate Amino Transferase 35 U/L (14-36); Bilirubin,Total 0.4 mg/dL (0.2-1.3); Blood Urea Nitrogen 75 mg/dL (7-17); Calcium 8.8 mg/dL (8.4-10.2); Carbon Dioxide 25 mmol/L (22-30); Chloride 108 mmol/L (98-107); Estimated CRCL calculation 23 ml/min; Estimated Glomerular Filt Rate 15; Glucose 96 mg/dL (65-110); Potassium 3.8 mmol/L (3.4-5.0); Sodium 143 mmol/L (137-145)
[2023-06-02] MEDS: LABETALOL HCL INJ 100 MG/20 ML VIAL 20 MG IV PUSH ×2 (06:52→23:00)
[2023-06-02] MEDS: ASPIRIN 325 MG TABLET PO (07:59)
[2023-06-02] MEDS: carvediloL 25 MG TABLET PO ×2 (07:59→21:03)
[2023-06-02] MEDS: ATORVASTATIN 40 MG TABLET 80 MG PO (07:59)
[2023-06-02] MEDS: ENALAPRILAT 1.25 MG/ML VIAL IV PUSH (07:59)
[2023-06-02] MEDS: FUROSEMIDE INJ 40 MG/4 ML VIAL IV PUSH ×2 (08:00→16:53)
[2023-06-02] MEDS: SACUBITRIL/VALSARTAN 49-51 MG TABLET 1 TABLET PO ×2 (08:00→16:53)
[2023-06-02] MEDS: ENOXAPARIN 40 MG/0.4 ML SYRINGE SUB-Q (08:00)
[2023-06-02] MEDS: LABETALOL HCL 100 MG TABLET 200 MG PO ×2 (08:00→21:03)
[2023-06-02] MEDS: ISOSORBIDE MONONITRATE 10 MG TABLET PO ×2 (08:00→16:53)
[2023-06-02] MEDS: PANTOPRAZOLE SODIUM IV 40 MG VIAL IV PUSH (08:00)
[2023-06-02] MEDS: MEROPENEM 500 MG in SODIUM CHLORIDE 0.9% IV 100 ML 200 ML IVPB ×2 (08:05→21:22)
--- NOTE | 2023-06-02 09:46 | WPDINTPN ---
Progress Note: A&P Assessment and Plan (1) Urinary tract infection: Code(s): N39.0 - Urinary tract infection, site not specified Status: Acute Assessment and Plan: ESBL E coli susceptible to only imipenem, meropenem and Zosyn -continue meropenem (05/30) x5 days (2) Acute and chronic respiratory failure with hypoxia: Code(s): J96.21 - Acute and chronic respiratory failure with hypoxia Status: Acute Assessment and Plan: 05/27: Presented the ED with shortness of breath, requiring intubation secondary to CHF exacerbation -06/01: extubated -continue bronchodilators -PCR for influenza RSV and COVID were negative -incentive spirometry -PT/OT with up to chair with assistance only (3) Acute exacerbation of CHF (congestive heart failure): Qualifiers: Heart failure type: combined systolic and diastolic Qualified Code(s): I50.43 - Acute on chronic combined systolic (congestive) and diastolic (congestive) heart failure Code(s): I50.9 - Heart failure, unspecified Status: Acute Assessment and Plan: Acute on chronic diastolic and systolic heart failure Most recent echocardiogram in April 2023 Summary ? 1. Technically difficult exam because of obesity/definity contrast injected to improve visualization. ? 2. Left ventricular dilation with severe global systolic dysfunction ejection fraction of 30%. ? 3. Diastolic noncompliance. ? 4. Left atrial enlarged. ? 5. No obvious valve dysfunction although quality of the exam is very challenging. -Continue diuresis for volume overload -continue Entresto and Coreg (4) CKD (chronic kidney disease) stage 3, GFR 30-59 ml/min: Qualifiers: Chronic kidney disease stage 3 subtype: stage 3a (GFR 45-59) Qualified Code(s): N18.31 - Chronic kidney disease, stage 3a Code(s): N18.30 - Chronic kidney disease, stage 3 unspecified Status: Acute Assessment and Plan: Patient has chronic kidney disease with recent acute kidney injury which was managed medically and did not require hemodialysis. She was discharged with creatinine 3.2 which was stable on presentation Patient does appear to be volume overloaded and has been started on diuretics. She has responded to diuretics and making urine On past admission patient has seen at risk of requiring LEARNING DISABILITIES RESOURCE TEACHER but improved with medical therapy but remains at risk in case renal function worsens or urine output decreases Continue to monitor urine output electrolytes and creatinine -nephrology following (5) Asthma-COPD overlap syndrome: Code(s): J44.9 - Chronic obstructive pulmonary disease, unspecified Status: Acute Assessment and Plan: Bronchodilators (6) Pulmonary edema: Code(s): J81.1 - Chronic pulmonary edema Status: Acute Assessment and Plan: See above (7) Elevated troponin: Code(s): R77.8 - Other specified abnormalities of plasma proteins Status: Acute Assessment and Plan: Patient has always had mildly elevated troponin level and has been evaluated by Cardiology in the past. Recent echo reviewed Continue serial troponin Continue aspirin and statin On Coreg (8) Hypertension: Qualifiers: Hypertension type: unspecified Qualified Code(s): I10 - Essential (primary) hypertension Code(s): I10 - Essential (primary) hypertension Status: Acute Assessment and Plan: Continue isosorbide mononitrate, and Entresto, labetalol, Lasix, clonidine, Coreg, -p.r.n. hydralazine and labetalol -blood pressure is much improved (9) Seizure: Code(s): R56.9 - Unspecified convulsions Status: Acute Assessment and Plan: Continue phenytoin (10) Peripheral arterial disease: Code(s): I73.9 - Peripheral vascular disease, unspecified Status: Acute Assessment and Plan: 05/30: Left lower extremity DOUG: ?Diminished left ankle and toe brachial indices consistent with
--- NOTE | 2023-06-02 10:19 | PCSTNOTE ---
Please refer to the Bedside Swallow Evaluation in the EMR. Please note, silent aspiration cannot be ruled out at bedside.
--- NOTE | 2023-06-02 10:47 | P.PNNP_ITS ---
Progress Note: A&P Assessment and Plan (1) ARMIN (acute kidney injury): Code(s): N17.9 - Acute kidney failure, unspecified Status: Acute Assessment and Plan: * noted on previous hospitalization here at [facility] in April 2022 * discharged with a creatinine of 3.7mg/dl at that time * suspected etiology was ATN due to infection (COVID + pneumonia) and CHF exacerbation * evaluation during April 2023 admission noted: * renal ultrasound with medical renal disease (incomplete visualization of left kidney) * CPK okay * UA with blood and protein along with?granular casts * urine electrolytes never done * no peripheral eosinophilia or rash * serologies (GISELA, ANCA, dsDNA-Ab, antiGBM-ab, complements, and serm/urine immunofixation) were all negative * during hospitalization 2 weeks ago (early May 2023), creatinine was still elevated (no evidence of renal recovery) * admission creatinine was 3.4mg/dl (on 05/17/23) * discharge creatinine was 3.2mg/dl -- possible new baseline? * it would seems that her renal function has still not recovered based on admission labs or perhaps she has a new baseline creatinine * once again, she remains at risk for FORM RAISER/dialysis * however, on previous hospitalizations, she responded to medical therapy * she appears to be responding to medical therapy once again * follow trend of repeat labs and UOP (2) Stage 3a chronic kidney disease: Code(s): N18.31 - Chronic kidney disease, stage 3a Status: Chronic Assessment and Plan: * creatinine was running around 1.4 - 1.5mg/dl in November 2021 * presumably secondary to hypertension and vascular disease as well as CHF * suspect component of CKD progression on top of ARMIN/ARF from last hospital admissions (3) Acute and chronic respiratory failure with hypoxia: Code(s): J96.21 - Acute and chronic respiratory failure with hypoxia Status: Acute Assessment and Plan: * resolving -- extubated * felt to be secondary to volume overload from CHF and pulmonary edema * complicated by asthma and COPD * initially responded to BIPAP in ER * however, deteriorated on the floor requiring intubation and mechanical ventilation (on 05/27/23) * continue IV diuretics (4) Acute exacerbation of CHF (congestive heart failure): Qualifiers: Heart failure type: combined systolic and diastolic Qualified Code(s): I50.43 - Acute on chronic combined systolic (congestive) and diastolic (congestive) heart failure Code(s): I50.9 - Heart failure, unspecified Status: Acute Assessment and Plan: * known cardiomyomathy * last Echo with EF of 30% * continue diuresis * follow I/Os, CXR/respiratory status, and daily weights * unclear trigger for decompensation...dietary indiscretion? * I worry her recurrent admissions for this will continue to push her to the necessity of FORM RAISER/dialysis... (5) Hypertension: Qualifiers: Hypertension type: unspecified Qualified Code(s): I10 - Essential (primary) hypertension Code(s): I10 - Essential (primary) hypertension Status: Acute Assessment and Plan: * reasonable control at this time * medications adjustments noted with rising BP * follow trend of hemodynamics (6) Urinary tract infection: Code(s): N39.0 - Urinary tract infection, site not specified Status: Acute Assessment and Plan: * admission UA suggestive * culture results noted - E.coli * on antibiotics (7) Anemia: Qualifiers: Anemia type: due to chr
--- NOTE | 2023-06-02 10:47 | PM.PNNEP ---
Progress Note: A&P Assessment and Plan (1) ARMIN (acute kidney injury): Code(s): N17.9 - Acute kidney failure, unspecified Status: Acute Assessment and Plan: noted on previous hospitalization here at [facility] in April 2022 discharged with a creatinine of 3.7mg/dl at that time suspected etiology was ATN due to infection (COVID + pneumonia) and CHF exacerbation evaluation during April 2023 admission noted: renal ultrasound with medical renal disease (incomplete visualization of left kidney) CPK okay UA with blood and protein along with?granular casts urine electrolytes never done no peripheral eosinophilia or rash serologies (GISELA, ANCA, dsDNA-Ab, antiGBM-ab, complements, and serm/urine immunofixation) were all negative during hospitalization 2 weeks ago (early May 2023), creatinine was still elevated (no evidence of renal recovery) admission creatinine was 3.4mg/dl (on 05/17/23) discharge creatinine was 3.2mg/dl -- possible new baseline? it would seems that her renal function has still not recovered based on admission labs or perhaps she has a new baseline creatinine once again, she remains at risk for BURNT LIME DRAWER/dialysis however, on previous hospitalizations, she responded to medical therapy she appears to be responding to medical therapy once again follow trend of repeat labs and UOP (2) Stage 3a chronic kidney disease: Code(s): N18.31 - Chronic kidney disease, stage 3a Status: Chronic Assessment and Plan: creatinine was running around 1.4 - 1.5mg/dl in November 2021 presumably secondary to hypertension and vascular disease as well as CHF suspect component of CKD progression on top of ARMIN/ARF from last hospital admissions (3) Acute and chronic respiratory failure with hypoxia: Code(s): J96.21 - Acute and chronic respiratory failure with hypoxia Status: Acute Assessment and Plan: resolving -- extubated felt to be secondary to volume overload from CHF and pulmonary edema complicated by asthma and COPD initially responded to BIPAP in ER however, deteriorated on the floor requiring intubation and mechanical ventilation (on 05/27/23) continue IV diuretics (4) Acute exacerbation of CHF (congestive heart failure): Qualifiers: Heart failure type: combined systolic and diastolic Qualified Code(s): I50.43 - Acute on chronic combined systolic (congestive) and diastolic (congestive) heart failure Code(s): I50.9 - Heart failure, unspecified Status: Acute Assessment and Plan: known cardiomyomathy last Echo with EF of 30% continue diuresis follow I/Os, CXR/respiratory status, and daily weights unclear trigger for decompensation...dietary indiscretion? I worry her recurrent admissions for this will continue to push her to the necessity of BURNT LIME DRAWER/dialysis... (5) Hypertension: Qualifiers: Hypertension type: unspecified Qualified Code(s): I10 - Essential (primary) hypertension Code(s): I10 - Essential (primary) hypertension Status: Acute Assessment and Plan: reasonable control at this time medications adjustments noted with rising BP follow trend of hemodynamics (6) Urinary tract infection: Code(s): N39.0 - Urinary tract infection, site not specified Status: Acute Assessment and Plan: admission UA suggestive culture results noted - E.coli on antibiotics (7) Anemia: Qualifiers: Anemia type: due to chronic kidney disease Chronic kidney disease stage: stage 3 (moderate) Code(s): D64.9 - Anemia, unspecified Status: Chronic Assessment and Plan: presumably due to CKD and recurrent hospitalizations/acute illness follow trend of H/H on empiric Epogen Will continue to follow. Subjective Date/time seen: 06/02/23 10:47 Interval history: Follow-up for acute kidney injury/acute renal failure on chronic kidney disease kirby
--- NOTE | 2023-06-02 11:09 | PCNFU ---
Nutrition Follow-Up Complete: Inadequate Enteral Nutrition Infusion as related to mechanical ventilation as evidenced by overfeeding. Goal: Meet estimated nutritional needs. Patient is progressing towards goal. We will continue current goal. Pt current nutrition is Minced and Moist, Level 5 with Mildly Thick liquids, Level 3. Nutrition recommendation: Ensure compact BID Last recorded weight is 151.5 kg, fluctuates with dialysis. Bowel Motility:+BM reported 06/02 Labs Reviewed:Cr 3.9,BUN 75, GFR 15, Hct 27.8,Hgb 8.5 Meds Noted:Coreg, Lipitor, Protonix, Lipitor, Lasix Skin: WNL Additional Notes: Patient had bedside swallow today recommend diet order advancement to Minced and Moist,Level 5 with Moderately Thick liquids, Level 3. Diet supplements requested by RD today, Package Line Operator ordered Ensure compact BID which will provide an additional 220 kcals and 9 gms protein. Will monitor weight, labs, skin , tube feeding tolerance, meds every 3 days.
[2023-06-02] MEDS: cloNIDine HCL 0.1 MG TABLET 0.3 MG PO ×2 (14:03→21:21)
--- NOTE | 2023-06-02 15:55 | PCPTNOTE ---
Pt is dependent at baseline using a yuli lift for transfers out of bed and has total care at facility. PT orders discharged due to pt being at baseline.
--- NOTE | 2023-06-02 16:36 | P.PNIM_ITS ---
Progress Note: A&P Assessment and Plan (1) Urinary tract infection: Code(s): N39.0 - Urinary tract infection, site not specified Status: Acute Assessment and Plan: ESBL E coli susceptible to only imipenem, meropenem and Zosyn -continue meropenem (05/30) x5 days (2) Acute and chronic respiratory failure with hypoxia: Code(s): J96.21 - Acute and chronic respiratory failure with hypoxia Status: Acute Assessment and Plan: 05/27: Presented the ED with shortness of breath, requiring intubation secondary to CHF exacerbation -06/01: extubated -continue bronchodilators -PCR for influenza RSV and COVID were negative -incentive spirometry -PT/OT with up to chair with assistance only (3) Acute exacerbation of CHF (congestive heart failure): Qualifiers: Heart failure type: combined systolic and diastolic Qualified Code(s): I50.43 - Acute on chronic combined systolic (congestive) and diastolic (congestive) heart failure Code(s): I50.9 - Heart failure, unspecified Status: Acute Assessment and Plan: Acute on chronic diastolic and systolic heart failure Most recent echocardiogram in April 2023 Summary ? 1. Technically difficult exam because of obesity/definity contrast injected to improve visualization. ? 2. Left ventricular dilation with severe global systolic dysfunction ejection fraction of 30%. ? 3. Diastolic noncompliance. ? 4. Left atrial enlarged. ? 5. No obvious valve dysfunction although quality of the exam is very challenging. -Continue diuresis for volume overload -continue Entresto and Coreg (4) CKD (chronic kidney disease) stage 3, GFR 30-59 ml/min: Qualifiers: Chronic kidney disease stage 3 subtype: stage 3a (GFR 45-59) Qualified Code(s): N18.31 - Chronic kidney disease, stage 3a Code(s): N18.30 - Chronic kidney disease, stage 3 unspecified Status: Acute Assessment and Plan: Patient has chronic kidney disease with recent acute kidney injury which was managed medically and did not require hemodialysis. She was discharged with creatinine 3.2 which was stable on presentation Patient does appear to be volume overloaded and has been started on diuretics. She has responded to diuretics and making urine On past admission patient has seen at risk of requiring RECREATION THERAPY DIRECTOR but improved with medical therapy but remains at risk in case renal function worsens or urine output decreases Continue to monitor urine output electrolytes and creatinine -nephrology following (5) Asthma-COPD overlap syndrome: Code(s): J44.9 - Chronic obstructive pulmonary disease, unspecified Status: Acute Assessment and Plan: Bronchodilators (6) Pulmonary edema: Code(s): J81.1 - Chronic pulmonary edema Status: Acute Assessment and Plan: See above (7) Elevated troponin: Code(s): R77.8 - Other specified abnormalities of plasma proteins Status: Acute Assessment and Plan: Patient has always had mildly elevated troponin level and has been evaluated by Cardiology in the past. Recent echo reviewed Continue serial troponin Continue aspirin and statin On Coreg (8) Hypertension: Qualifiers: Hypertension type: unspecified Qualified Code(s): I10 - Essential (primary) hypertension Code(s): I10 - Essential (primary) hypertension Status: Acute Assessment and Plan: Continue isosorbide mononitrate, and Entresto, labetalol, Lasix, clonidine, Coreg, -p.r.n. hydralazine and labetalol -blood pressure
[2023-06-03] VITALS (15 sets, daily range): BP systolic 130–158; BP diastolic 61–99; PULSE 65–84; RESP 14–21; TEMP 36.1–37.2; O2SAT 14–100
[2023-06-03] MEDS: cloNIDine HCL 0.1 MG TABLET 0.3 MG PO ×3 (05:45→21:19)
[2023-06-03] MEDS: CENTRAL LINE FLUSH 10 ML IV PUSH ×3 (05:49→21:23)
[2023-06-03 06:06] LABS: Basophils Absolute Auto 0.1 K/mm3 (0.0-0.1); Basophils Percent Auto 0.9 % (0.2-1.2); Eosinophils Absolute Auto 0.3 K/mm3 (0-0.3); Eosinophils Percent Auto 4.9 % (0-4.4); Hematocrit 27.8 % (37.0-47.0); Hemoglobin 8.2 g/dL (12.0-15.0); Immature Granulocyte Absolute 0.07 K/mm3 (0.00-0.031); Lymphocytes Percent Auto 27.3 % (18.3-44.2); Mean Corpuscular HGB Conc 29.5 g/dl (32-36); Mean Corpuscular Hemoglobin 28.4 pg (26-34); Mean Corpuscular Volume 96.2 fl (80-100); Mean Platelet Volume 11.3 fl (7.4-10.4); Monocytes Absolute Auto 0.8 K/mm3 (0.1-0.6); Monocytes Percent Auto 10.9 % (2.6-8.5); Neutrophils Absolute Auto 3.8 K/mm3 (1.3-6.7); Platelet Count Result 201 k/mm3 (150-375); Red Blood Count 2.89 M/mm3 (4.2-5.4); Red Cell Distribution Width 15.3 % (11.5-14.5)
[2023-06-03 06:23] LABS: Alanine Aminotransferase 30 U/L (6-35); Albumin Level 3.7 g/dL (3.5-5.1); Alkaline Phosphatase 116 U/L (38-126); Anion Gap 10 mmol/L (8-16); Aspartate Amino Transferase 27 U/L (14-36); Bilirubin,Total 0.4 mg/dL (0.2-1.3); Blood Urea Nitrogen 78 mg/dL (7-17); Carbon Dioxide 25 mmol/L (22-30); Chloride 108 mmol/L (98-107); Estimated CRCL calculation 22 ml/min; Estimated Glomerular Filt Rate 14; Glucose 93 mg/dL (65-110); Magnesium 2.4 mg/dL (1.6-2.3); Potassium 3.9 mmol/L (3.4-5.0); Sodium 143 mmol/L (137-145)
[2023-06-03] MEDS: ISOSORBIDE MONONITRATE 10 MG TABLET PO ×2 (08:15→16:04)
[2023-06-03] MEDS: FUROSEMIDE INJ 40 MG/4 ML VIAL IV PUSH ×2 (08:17→16:03)
[2023-06-03] MEDS: EPOETIN ALFA-EPBX 10,000 UNITS/ML VIAL 10000 UNITS SUB-Q (08:17)
[2023-06-03] MEDS: LABETALOL HCL 100 MG TABLET 200 MG PO ×2 (08:18→21:19)
[2023-06-03] MEDS: ENOXAPARIN 40 MG/0.4 ML SYRINGE SUB-Q (08:18)
[2023-06-03] MEDS: ASPIRIN 325 MG TABLET PO (08:19)
[2023-06-03] MEDS: carvediloL 25 MG TABLET PO ×2 (08:19→21:19)
[2023-06-03] MEDS: MEROPENEM 500 MG in SODIUM CHLORIDE 0.9% IV 100 ML 200 ML IVPB ×2 (08:19→21:41)
[2023-06-03] MEDS: PANTOPRAZOLE SODIUM IV 40 MG VIAL IV PUSH (08:20)
[2023-06-03] MEDS: SACUBITRIL/VALSARTAN 49-51 MG TABLET 1 TABLET PO ×2 (08:20→16:04)
[2023-06-03] MEDS: ATORVASTATIN 40 MG TABLET 80 MG PO (08:20)
[2023-06-03] MEDS: TOLNAFTATE 1% POWDER 45 GM BTL 1 APPLIC TOPICAL ×2 (08:21→21:20)
--- NOTE | 2023-06-03 19:21 | PC.NURSE ---
This patient, Mirela Preston, was received from ICU 2 on 06/03/23 at 1840. Report received from ANTELMO Deng. Patient/family oriented to unit policies and routines.
--- NOTE | 2023-06-03 21:41 | P.PNNP_ITS ---
Progress Note: A&P Assessment and Plan (1) ARMIN (acute kidney injury): Code(s): N17.9 - Acute kidney failure, unspecified Status: Acute Assessment and Plan: * noted on previous hospitalization here at [place] in April 2022 * discharged with a creatinine of 3.7mg/dl at that time * suspected etiology was ATN due to infection (COVID + pneumonia) and CHF exacerbation * evaluation during April 2023 admission noted: * renal ultrasound with medical renal disease (incomplete visualization of left kidney) * CPK okay * UA with blood and protein along with?granular casts * urine electrolytes never done * no peripheral eosinophilia or rash * serologies (GISELA, ANCA, dsDNA-Ab, antiGBM-ab, complements, and serm/urine immunofixation) were all negative * during hospitalization 2 weeks ago baseline creatinine 3.2 * now creatinine around 4. * etiology of rising creatinine difficult to know. perhaps progression of renal disease plus need for diuretics (2) Stage 3a chronic kidney disease: Code(s): N18.31 - Chronic kidney disease, stage 3a Status: Chronic Assessment and Plan: * creatinine was running around 1.4 - 1.5mg/dl in November 2021 * presumably secondary to hypertension and vascular disease as well as CHF * suspect component of CKD progression on top of ARMIN/ARF from last hospital admissions (3) Acute and chronic respiratory failure with hypoxia: Code(s): J96.21 - Acute and chronic respiratory failure with hypoxia Status: Acute Assessment and Plan: * resolving -- extubated * felt to be secondary to volume overload from CHF and pulmonary edema * complicated by asthma and COPD * initially responded to BIPAP in ER * however, deteriorated on the floor requiring intubation and mechanical ventilation (on 05/27/23) * on furosemide 40mg bid. (4) Acute exacerbation of CHF (congestive heart failure): Qualifiers: Heart failure type: combined systolic and diastolic Qualified Code(s): I50.43 - Acute on chronic combined systolic (congestive) and diastolic (co ngestive) heart failure Code(s): I50.9 - Heart failure, unspecified Status: Acute Assessment and Plan: * known cardiomyomathy * last Echo with EF of 30% * continue diuresis * follow I/Os, CXR/respiratory status, and daily weights * unclear trigger for decompensation...dietary indiscretion? * I worry her recurrent admissions for this will continue to push her to the necessity of [employer]/dialysis... (5) Hypertension: Qualifiers: Hypertension type: unspecified Qualified Code(s): I10 - Essential (primary) hypertension Code(s): I10 - Essential (primary) hypertension Status: Acute Assessment and Plan: * systolic 130s to 150s * Meds: carv 25 bid, clonidine 0.3 tid, labetalol 200 bid, entresto (6) Urinary tract infection: Code(s): N39.0 - Urinary tract infection, site not specified Status: Acute Assessment and Plan: * admission UA suggestive * culture results noted - E.coli * on antibiotics (7) Anemia: Qualifiers: Anemia type: due to chronic kidney disease Chronic kidney disease stage: stage 3 (moderate) Code(s): D64.9 - Anemia, unspecified Status: Chronic Assessment and Plan: * presumably due to CKD and recurrent hospitalizations/acute illness * hb 8.2 * getting epo Subjective Date/time seen: 06/03/23 21:41 Interval history: pt is comfortable in bed in good spirits. no
--- NOTE | 2023-06-03 21:41 | PM.PNNEP ---
Progress Note: A&P Assessment and Plan (1) ARMIN (acute kidney injury): Code(s): N17.9 - Acute kidney failure, unspecified Status: Acute Assessment and Plan: noted on previous hospitalization here at [place] in April 2022 discharged with a creatinine of 3.7mg/dl at that time suspected etiology was ATN due to infection (COVID + pneumonia) and CHF exacerbation evaluation during April 2023 admission noted: renal ultrasound with medical renal disease (incomplete visualization of left kidney) CPK okay UA with blood and protein along with?granular casts urine electrolytes never done no peripheral eosinophilia or rash serologies (GISELA, ANCA, dsDNA-Ab, antiGBM-ab, complements, and serm/urine immunofixation) were all negative during hospitalization 2 weeks ago baseline creatinine 3.2 now creatinine around 4. etiology of rising creatinine difficult to know. perhaps progression of renal disease plus need for diuretics (2) Stage 3a chronic kidney disease: Code(s): N18.31 - Chronic kidney disease, stage 3a Status: Chronic Assessment and Plan: creatinine was running around 1.4 - 1.5mg/dl in November 2021 presumably secondary to hypertension and vascular disease as well as CHF suspect component of CKD progression on top of ARMIN/ARF from last hospital admissions (3) Acute and chronic respiratory failure with hypoxia: Code(s): J96.21 - Acute and chronic respiratory failure with hypoxia Status: Acute Assessment and Plan: resolving -- extubated felt to be secondary to volume overload from CHF and pulmonary edema complicated by asthma and COPD initially responded to BIPAP in ER however, deteriorated on the floor requiring intubation and mechanical ventilation (on 05/27/23) on furosemide 40mg bid. (4) Acute exacerbation of CHF (congestive heart failure): Qualifiers: Heart failure type: combined systolic and diastolic Qualified Code(s): I50.43 - Acute on chronic combined systolic (congestive) and diastolic (congestive) heart failure Code(s): I50.9 - Heart failure, unspecified Status: Acute Assessment and Plan: known cardiomyomathy last Echo with EF of 30% continue diuresis follow I/Os, CXR/respiratory status, and daily weights unclear trigger for decompensation...dietary indiscretion? I worry her recurrent admissions for this will continue to push her to the necessity of [employer]/dialysis... (5) Hypertension: Qualifiers: Hypertension type: unspecified Qualified Code(s): I10 - Essential (primary) hypertension Code(s): I10 - Essential (primary) hypertension Status: Acute Assessment and Plan: systolic 130s to 150s Meds: carv 25 bid, clonidine 0.3 tid, labetalol 200 bid, entresto (6) Urinary tract infection: Code(s): N39.0 - Urinary tract infection, site not specified Status: Acute Assessment and Plan: admission UA suggestive culture results noted - E.coli on antibiotics (7) Anemia: Qualifiers: Anemia type: due to chronic kidney disease Chronic kidney disease stage: stage 3 (moderate) Code(s): D64.9 - Anemia, unspecified Status: Chronic Assessment and Plan: presumably due to CKD and recurrent hospitalizations/acute illness hb 8.2 getting epo Subjective Date/time seen: 06/03/23 21:41 Interval history: pt is comfortable in bed in good spirits. no sob or cp Exam Narrative: General: Large female in NAD Heart: normal S1 and S2; no rub or gallop Lungs: decreased at bases Abdomen: soft, nontender, nondistended, positive bowel sounds Extremities: no cyanosis or clubbing; 1+ edema in LLE; s/p right AKA Skin: no rash Objective Data Vital Signs Vital Signs: Vital Signs - 24 hr 06/02/23 22:00 06/02/23 23:00 06/03/23 00:00 Temperature Pulse Rate 85 81 Respiratory Rate Blood Pre
[2023-06-04] VITALS (10 sets, daily range): BP systolic 114–150; BP diastolic 64–84; PULSE 64–77; RESP 17–21; TEMP 36.4–36.7; O2SAT 96–100
[2023-06-04] MEDS: cloNIDine HCL 0.1 MG TABLET 0.3 MG PO ×3 (06:25→21:25)
[2023-06-04] MEDS: CENTRAL LINE FLUSH 10 ML IV PUSH ×3 (06:26→21:26)
[2023-06-04 06:31] LABS: Basophils Absolute Auto 0.1 K/mm3 (0.0-0.1); Eosinophils Absolute Auto 0.3 K/mm3 (0-0.3); Eosinophils Percent Auto 4.5 % (0-4.4); Hematocrit 26.4 % (37.0-47.0); Hemoglobin 8.1 g/dL (12.0-15.0); Immature Granulocyte Absolute 0.11 K/mm3 (0.00-0.031); Immature Granulocyte Percent A 1.6 % (0-0.5); Lymphocytes Absolute Auto 2.14 K/mm3 (0.9-3.2); Mean Corpuscular HGB Conc 30.7 g/dl (32-36); Mean Corpuscular Volume 94.6 fl (80-100); Monocytes Absolute Auto 0.7 K/mm3 (0.1-0.6); Monocytes Percent Auto 9.9 % (2.6-8.5); Neutrophils Absolute Auto 3.4 K/mm3 (1.3-6.7); Platelet Count Result 217 k/mm3 (150-375); Red Blood Count 2.79 M/mm3 (4.2-5.4); Red Cell Distribution Width 15.3 % (11.5-14.5); White Blood Count 6.7 K/mm3 (4.5-10.0)
[2023-06-04 06:45] LABS: Alanine Aminotransferase 23 U/L (6-35); Albumin Level 3.6 g/dL (3.5-5.1); Alkaline Phosphatase 106 U/L (38-126); Anion Gap 10 mmol/L (8-16); Aspartate Amino Transferase 24 U/L (14-36); Bilirubin,Total 0.3 mg/dL (0.2-1.3); Blood Urea Nitrogen 79 mg/dL (7-17); Calcium 8.4 mg/dL (8.4-10.2); Carbon Dioxide 26 mmol/L (22-30); Chloride 103 mmol/L (98-107); Estimated CRCL calculation 22 ml/min; Estimated Glomerular Filt Rate 14; Glucose 89 mg/dL (65-110); Magnesium 2.3 mg/dL (1.6-2.3); Phosphorus 7.3 mg/dL (2.5-4.5); Sodium 139 mmol/L (137-145)
[2023-06-04] MEDS: carvediloL 25 MG TABLET PO ×2 (10:33→21:25)
[2023-06-04] MEDS: ENOXAPARIN 40 MG/0.4 ML SYRINGE SUB-Q (10:35)
[2023-06-04] MEDS: ASPIRIN 325 MG TABLET PO (10:35)
[2023-06-04] MEDS: FUROSEMIDE INJ 40 MG/4 ML VIAL IV PUSH ×2 (10:35→16:41)
[2023-06-04] MEDS: ATORVASTATIN 40 MG TABLET 80 MG PO (10:35)
[2023-06-04] MEDS: PANTOPRAZOLE SODIUM IV 40 MG VIAL IV PUSH (10:35)
[2023-06-04] MEDS: TOLNAFTATE 1% POWDER 45 GM BTL 1 APPLIC TOPICAL ×2 (10:56→21:26)
[2023-06-04] MEDS: SACUBITRIL/VALSARTAN 49-51 MG TABLET 1 TABLET PO ×2 (11:31→16:41)
[2023-06-04] MEDS: LABETALOL HCL 100 MG TABLET 200 MG PO (11:31)
[2023-06-04] MEDS: ISOSORBIDE MONONITRATE 10 MG TABLET PO ×2 (11:31→16:41)
--- NOTE | 2023-06-04 13:46 | P.PNNP_ITS ---
Progress Note: A&P Assessment and Plan (1) ARMIN (acute kidney injury): Code(s): N17.9 - Acute kidney failure, unspecified Status: Acute Assessment and Plan: * noted on previous hospitalization here at [place] in April 2022 * discharged with a creatinine of 3.7mg/dl at that time * suspected etiology was ATN due to infection (COVID + pneumonia) and CHF exacerbation * evaluation during April 2023 admission noted: * renal ultrasound with medical renal disease (incomplete visualization of left kidney) * CPK okay * UA with blood and protein along with?granular casts * urine electrolytes never done * no peripheral eosinophilia or rash * serologies (GISELA, ANCA, dsDNA-Ab, antiGBM-ab, complements, and serm/urine immunofixation) were all negative * creatinine stable at 4.0. (2) Stage 3a chronic kidney disease: Code(s): N18.31 - Chronic kidney disease, stage 3a Status: Chronic Assessment and Plan: * creatinine was running around 1.4 - 1.5mg/dl in November 2021 * presumably secondary to hypertension and vascular disease as well as chronic pre renal azotemia due to CHF * suspect component of CKD progression on top of ARMIN/ARF from last hospital admissions (3) Acute and chronic respiratory failure with hypoxia: Code(s): J96.21 - Acute and chronic respiratory failure with hypoxia Status: Acute Assessment and Plan: * resolved * on diuretics to prevent a recurrence (4) Acute exacerbation of CHF (congestive heart failure): Qualifiers: Heart failure type: combined systolic and diastolic Qualified Code(s): I50.43 - Acute on chronic combined systolic (congestive) and diastolic (congestive) heart failure Code(s): I50.9 - Heart failure, unspecified Status: Acute Assessment and Plan: * known cardiomyomathy * last Echo with EF of 30% * continue diuresis. She seems at a good balance now with comfortable breathing. * follow I/Os, CXR/respiratory status, and daily weights * I agree that the patient is seeming to be approaching dialysis. (5) Hypertension: Qualifiers: Hypertension type: unspecified Qualified Code(s): I10 - Essential (primary) hypertension Code(s): I10 - Essential (primary) hypertension Status: Acute Assessment and Plan: * systolic 130s to 150s * Meds: carv 25 bid, clonidine 0.3 tid, labetalol 200 bid, entresto * Will wean labetalol since she is on carvedilol. * Will add hydralazine to make up the difference. It would be nice to get her off of the clonidine because of the interaction with labetalol. (6) Urinary tract infection: Code(s): N39.0 - Urinary tract infection, site not specified Status: Acute Assessment and Plan: * admission UA suggestive * culture results noted - E.coli * on antibiotics (7) Anemia: Qualifiers: Anemia type: due to chronic kidney disease Chronic kidney disease stage: stage 3 (moderate) Code(s): D64.9 - Anemia, unspecified Status: Chronic Assessment and Plan: * presumably due to CKD and recurrent hospitalizations/acute illness * hb 8.1 * getting epo Subjective Date/time seen: 06/04/23 13:46 Interval history: patient is alert. Eating some lunch. Exam Narrative: General: Large female in NAD Heart: normal S1 and S2; no rub Lungs: fairly clear anter Abdomen: soft, nontender, nondistended, positive bowel sounds Extr
--- NOTE | 2023-06-04 13:46 | PM.PNNEP ---
Progress Note: A&P Assessment and Plan (1) ARMIN (acute kidney injury): Code(s): N17.9 - Acute kidney failure, unspecified Status: Acute Assessment and Plan: noted on previous hospitalization here at [place] in April 2022 discharged with a creatinine of 3.7mg/dl at that time suspected etiology was ATN due to infection (COVID + pneumonia) and CHF exacerbation evaluation during April 2023 admission noted: renal ultrasound with medical renal disease (incomplete visualization of left kidney) CPK okay UA with blood and protein along with?granular casts urine electrolytes never done no peripheral eosinophilia or rash serologies (GISELA, ANCA, dsDNA-Ab, antiGBM-ab, complements, and serm/urine immunofixation) were all negative creatinine stable at 4.0. (2) Stage 3a chronic kidney disease: Code(s): N18.31 - Chronic kidney disease, stage 3a Status: Chronic Assessment and Plan: creatinine was running around 1.4 - 1.5mg/dl in November 2021 presumably secondary to hypertension and vascular disease as well as chronic pre renal azotemia due to CHF suspect component of CKD progression on top of ARMIN/ARF from last hospital admissions (3) Acute and chronic respiratory failure with hypoxia: Code(s): J96.21 - Acute and chronic respiratory failure with hypoxia Status: Acute Assessment and Plan: resolved on diuretics to prevent a recurrence (4) Acute exacerbation of CHF (congestive heart failure): Qualifiers: Heart failure type: combined systolic and diastolic Qualified Code(s): I50.43 - Acute on chronic combined systolic (congestive) and diastolic (congestive) heart failure Code(s): I50.9 - Heart failure, unspecified Status: Acute Assessment and Plan: known cardiomyomathy last Echo with EF of 30% continue diuresis. She seems at a good balance now with comfortable breathing. follow I/Os, CXR/respiratory status, and daily weights I agree that the patient is seeming to be approaching dialysis. (5) Hypertension: Qualifiers: Hypertension type: unspecified Qualified Code(s): I10 - Essential (primary) hypertension Code(s): I10 - Essential (primary) hypertension Status: Acute Assessment and Plan: systolic 130s to 150s Meds: carv 25 bid, clonidine 0.3 tid, labetalol 200 bid, entresto Will wean labetalol since she is on carvedilol. Will add hydralazine to make up the difference. It would be nice to get her off of the clonidine because of the interaction with labetalol. (6) Urinary tract infection: Code(s): N39.0 - Urinary tract infection, site not specified Status: Acute Assessment and Plan: admission UA suggestive culture results noted - E.coli on antibiotics (7) Anemia: Qualifiers: Anemia type: due to chronic kidney disease Chronic kidney disease stage: stage 3 (moderate) Code(s): D64.9 - Anemia, unspecified Status: Chronic Assessment and Plan: presumably due to CKD and recurrent hospitalizations/acute illness hb 8.1 getting epo Subjective Date/time seen: 06/04/23 13:46 Interval history: patient is alert. Eating some lunch. Exam Narrative: General: Large female in NAD Heart: normal S1 and S2; no rub Lungs: fairly clear anter Abdomen: soft, nontender, nondistended, positive bowel sounds Extremities: no cyanosis or clubbing; 1+ edema in LLE; s/p right AKA Skin: no rash Or subcu nodules Objective Data Vital Signs Vital Signs: Vital Signs - 24 hr 06/03/23 16:00 06/03/23 22:44 06/04/23 02:01 Temperature 98.9 F Pulse Rate 84 70 64 Respiratory Rate 20 21 H 18 Blood Pressure 158/85 H Pulse Oximetry 97 99 96 Oxygen Delivery BiPAP BiPAP 06/03/23 20:40 06/04/23 08:14 06/04/23 06:33 Temperature 97.0 F L 97.5 F L 97.9 F Pulse Rate 74 74 70 Respiratory Rate 20 18 2
[2023-06-04] MEDS: hydrALAZINE HCL 25 MG TABLET PO ×2 (16:41→21:25)
[2023-06-04] MEDS: LABETALOL HCL 100 MG TABLET PO (21:25)
[2023-06-05 04:00] VITALS: BP 117/62; PULSE 66; RESP 18; TEMP 37.1; O2SAT 100
[2023-06-05] MEDS: cloNIDine HCL 0.1 MG TABLET 0.3 MG PO ×3 (05:59→21:12)
[2023-06-05] MEDS: CENTRAL LINE FLUSH 10 ML IV PUSH ×3 (06:00→21:12)
[2023-06-05 06:28] LABS: Basophils Absolute Auto 0.1 K/mm3 (0.0-0.1); Basophils Percent Auto 0.8 % (0.2-1.2); Eosinophils Absolute Auto 0.3 K/mm3 (0-0.3); Eosinophils Percent Auto 4.7 % (0-4.4); Hemoglobin 7.7 g/dL (12.0-15.0); Immature Granulocyte Absolute 0.07 K/mm3 (0.00-0.031); Lymphocytes Absolute Auto 2.09 K/mm3 (0.9-3.2); Lymphocytes Percent Auto 28.8 % (18.3-44.2); Mean Corpuscular HGB Conc 29.6 g/dl (32-36); Mean Corpuscular Hemoglobin 28.3 pg (26-34); Mean Corpuscular Volume 95.6 fl (80-100); Mean Platelet Volume 10.9 fl (7.4-10.4); Monocytes Absolute Auto 0.8 K/mm3 (0.1-0.6); Monocytes Percent Auto 10.5 % (2.6-8.5); Neutrophils Absolute Auto 3.9 K/mm3 (1.3-6.7); Neutrophils Percent Auto 54.2 % (45.5-73.1); Platelet Count Result 229 k/mm3 (150-375); Red Blood Count 2.72 M/mm3 (4.2-5.4); White Blood Count 7.3 K/mm3 (4.5-10.0)
[2023-06-05 06:43] LABS: Alanine Aminotransferase 20 U/L (6-35); Albumin Level 3.2 g/dL (3.5-5.1); Alkaline Phosphatase 99 U/L (38-126); Anion Gap 7 mmol/L (8-16); Aspartate Amino Transferase 24 U/L (14-36); Bilirubin,Total 0.3 mg/dL (0.2-1.3); Blood Urea Nitrogen 81 mg/dL (7-17); Carbon Dioxide 26 mmol/L (22-30); Chloride 103 mmol/L (98-107); Estimated CRCL calculation 21 ml/min; Estimated Glomerular Filt Rate 14; Glucose 88 mg/dL (65-110); Magnesium 2.3 mg/dL (1.6-2.3); Phosphorus 7.6 mg/dL (2.5-4.5); Potassium 4.1 mmol/L (3.4-5.0); Sodium 136 mmol/L (137-145)
[2023-06-05 08:00] VITALS: BP 115/72; PULSE 69; RESP 16; TEMP 36.3; O2SAT 99
[2023-06-05 08:04] LABS: Platelet Estimate Adequate (Adequate); Schistocytes None Seen (NORMAL)
[2023-06-05 08:05] LABS: Tear Drop Cells 1+ (NORMAL)
[2023-06-05] MEDS: hydrALAZINE HCL 25 MG TABLET PO ×4 (10:01→21:12)
[2023-06-05] MEDS: ATORVASTATIN 40 MG TABLET 80 MG PO (10:01)
[2023-06-05] MEDS: SACUBITRIL/VALSARTAN 49-51 MG TABLET 1 TABLET PO ×2 (10:01→17:20)
[2023-06-05] MEDS: ISOSORBIDE MONONITRATE 10 MG TABLET PO ×2 (10:02→17:20)
[2023-06-05] MEDS: ASPIRIN 325 MG TABLET PO (10:02)
[2023-06-05] MEDS: ENOXAPARIN 40 MG/0.4 ML SYRINGE SUB-Q (10:02)
[2023-06-05] MEDS: PANTOPRAZOLE SODIUM IV 40 MG VIAL IV PUSH (10:02)
[2023-06-05] MEDS: FUROSEMIDE INJ 40 MG/4 ML VIAL IV PUSH (10:02)
[2023-06-05 10:04] VITALS: PULSE 69
[2023-06-05] MEDS: carvediloL 25 MG TABLET PO ×2 (10:04→21:12)
[2023-06-05] MEDS: TOLNAFTATE 1% POWDER 45 GM BTL 1 APPLIC TOPICAL ×2 (10:04→21:12)
[2023-06-05] MEDS: LABETALOL HCL 100 MG TABLET PO ×2 (10:04→21:12)
--- NOTE | 2023-06-05 10:48 | PCNFU ---
Nutrition Follow-Up Complete: Inadequate Enteral Nutrition Infusion as related to mechanical ventilation as evidenced by overfeeding. goal: Meet estimated nutritional needs. Patient is meeting caloric needs at this time. No new goal. Pt current nutrition is Heart Healthy/Minced and Moist, Level 5 with Moderately Thick liquids, Level 3. Last recorded weight is 149 kg, up from 147.8 kg on admit. Bowel Motility: +BM reported 06/05 Labs Reviewed:Cr 42,GFR 14, BUN 81, Alb 3.2, Na 136 Meds Noted:Lipitor, Protonix, Coreg, Lovenox Skin: WNL Additional Notes: Patient is consuming 75-100% of meals. Speech seen on 06/02- noted re-eval to determine ability to advance diet. Diet supplements remain at this time of Ensure compact BID providing 220 kcals and 9 gms protein. Agree with diet orders. Will monitor weight, labs, skin , tube feeding tolerance, meds every 5 days.
--- NOTE | 2023-06-05 13:01 | P.PNNP_ITS ---
Progress Note: A&P Assessment and Plan (1) ARMIN (acute kidney injury): Code(s): N17.9 - Acute kidney failure, unspecified Status: Acute Assessment and Plan: * noted on previous hospitalization here at [place] in April 2022 * discharged with a creatinine of 3.7mg/dl at that time * suspected etiology was ATN due to infection (COVID + pneumonia) and CHF exacerbation * evaluation during April 2023 admission noted: * renal ultrasound with medical renal disease (incomplete visualization of left kidney) * CPK okay * UA with blood and protein along with?granular casts * urine electrolytes never done * no peripheral eosinophilia or rash * serologies (GISELA, ANCA, dsDNA-Ab, antiGBM-ab, complements, and serm/urine immunofixation) were all negative * suspect new baseline creatinine given recent/recurrent hospitalizations (2) Stage 3a chronic kidney disease: Code(s): N18.31 - Chronic kidney disease, stage 3a Status: Chronic Assessment and Plan: * creatinine was running around 1.4 - 1.5mg/dl in November 2021 * presumably secondary to hypertension and vascular disease as well as chronic pre renal azotemia due to CHF * suspect component of CKD progression on top of ARMIN/ARF from last hospital admissions (3) Acute and chronic respiratory failure with hypoxia: Code(s): J96.21 - Acute and chronic respiratory failure with hypoxia Status: Acute Assessment and Plan: * resolved * on diuretics to prevent a recurrence - transition to oral (4) Acute exacerbation of CHF (congestive heart failure): Qualifiers: Heart failure type: combined systolic and diastolic Qualified Code(s): I50.43 - Acute on chronic combined systolic (congestive) and diastolic (congestive) heart failure Code(s): I50.9 - Heart failure, unspecified Status: Acute Assessment and Plan: * known cardiomyomathy * last Echo with EF of 30% * continue diuresis. She seems at a good balance now with comfortable breathing. * follow I/Os, CXR/respiratory status, and daily weights * likely approaching dialysis in the near future -- no acute indications at this time (5) Hypertension: Qualifiers: Hypertension type: unspecified Qualified Code(s): I10 - Essential (primary) hypertension Code(s): I10 - Essential (primary) hypertension Status: Acute Assessment and Plan: * better control at this time * adjusting medications as tolerated * follow trend of hemodynamics (6) Urinary tract infection: Code(s): N39.0 - Urinary tract infection, site not specified Status: Acute Assessment and Plan: * admission UA suggestive * culture results noted - E.coli * on antibiotics (7) Anemia: Qualifiers: Anemia type: due to chronic kidney disease Chronic kidney disease stage: stage 3 (moderate) Code(s): D64.9 - Anemia, unspecified Status: Chronic Assessment and Plan: * presumably due to CKD and recurrent hospitalizations/acute illness * on Epogen * follow H/H Will continue to follow. Subjective Date/time seen: 06/05/23 13:01 Interval history: Follow-up for acute kidney injury/acute renal failure on chronic kidney disease versus chronic kidney disease. Chart reviewed since last seen -- transferred out of ICU with stable respiratory status at this time; remains on IV diuretics at this time; no apparent distress voiced at the time of my visit; no other issues/events overnight or earlier thi
--- NOTE | 2023-06-05 13:01 | PM.PNNEP ---
Progress Note: A&P Assessment and Plan (1) ARMIN (acute kidney injury): Code(s): N17.9 - Acute kidney failure, unspecified Status: Acute Assessment and Plan: noted on previous hospitalization here at [place] in April 2022 discharged with a creatinine of 3.7mg/dl at that time suspected etiology was ATN due to infection (COVID + pneumonia) and CHF exacerbation evaluation during April 2023 admission noted: renal ultrasound with medical renal disease (incomplete visualization of left kidney) CPK okay UA with blood and protein along with?granular casts urine electrolytes never done no peripheral eosinophilia or rash serologies (GISELA, ANCA, dsDNA-Ab, antiGBM-ab, complements, and serm/urine immunofixation) were all negative suspect new baseline creatinine given recent/recurrent hospitalizations (2) Stage 3a chronic kidney disease: Code(s): N18.31 - Chronic kidney disease, stage 3a Status: Chronic Assessment and Plan: creatinine was running around 1.4 - 1.5mg/dl in November 2021 presumably secondary to hypertension and vascular disease as well as chronic pre renal azotemia due to CHF suspect component of CKD progression on top of ARMIN/ARF from last hospital admissions (3) Acute and chronic respiratory failure with hypoxia: Code(s): J96.21 - Acute and chronic respiratory failure with hypoxia Status: Acute Assessment and Plan: resolved on diuretics to prevent a recurrence - transition to oral (4) Acute exacerbation of CHF (congestive heart failure): Qualifiers: Heart failure type: combined systolic and diastolic Qualified Code(s): I50.43 - Acute on chronic combined systolic (congestive) and diastolic (congestive) heart failure Code(s): I50.9 - Heart failure, unspecified Status: Acute Assessment and Plan: known cardiomyomathy last Echo with EF of 30% continue diuresis. She seems at a good balance now with comfortable breathing. follow I/Os, CXR/respiratory status, and daily weights likely approaching dialysis in the near future -- no acute indications at this time (5) Hypertension: Qualifiers: Hypertension type: unspecified Qualified Code(s): I10 - Essential (primary) hypertension Code(s): I10 - Essential (primary) hypertension Status: Acute Assessment and Plan: better control at this time adjusting medications as tolerated follow trend of hemodynamics (6) Urinary tract infection: Code(s): N39.0 - Urinary tract infection, site not specified Status: Acute Assessment and Plan: admission UA suggestive culture results noted - E.coli on antibiotics (7) Anemia: Qualifiers: Anemia type: due to chronic kidney disease Chronic kidney disease stage: stage 3 (moderate) Code(s): D64.9 - Anemia, unspecified Status: Chronic Assessment and Plan: presumably due to CKD and recurrent hospitalizations/acute illness on Epogen follow H/H Will continue to follow. Subjective Date/time seen: 06/05/23 13:01 Interval history: Follow-up for acute kidney injury/acute renal failure on chronic kidney disease versus chronic kidney disease. Chart reviewed since last seen -- transferred out of ICU with stable respiratory status at this time; remains on IV diuretics at this time; no apparent distress voiced at the time of my visit; no other issues/events overnight or earlier this morning. Exam Narrative: General: Large female in NAD Heart: normal S1 and S2; no rub Lungs: clear anteriorly Abdomen: soft, nontender, nondistended, positive bowel sounds Extremities: no cyanosis or clubbing; 1+ edema in LLE; s/p right AKA Skin: warm and dry Objective Data Vital Signs Vital Signs: Vital Signs Temp Pulse Resp BP Pulse Ox O2 Del Method 06/05/23 12:49 97.9 F 98 18 151/83 H 98 06/05/23 10:04 69
--- NOTE | 2023-06-05 13:15 | PM.IMPN ---
Progress Note: A&P Assessment and Plan (1) Urinary tract infection: Code(s): N39.0 - Urinary tract infection, site not specified Status: Acute Assessment and Plan: ESBL E coli susceptible to only imipenem, meropenem and Zosyn -continue meropenem (05/30) x5 days Completes meropenem (2) Acute and chronic respiratory failure with hypoxia: Code(s): J96.21 - Acute and chronic respiratory failure with hypoxia Status: Acute Assessment and Plan: 05/27: Presented the ED with shortness of breath, requiring intubation secondary to CHF exacerbation -06/01: extubated -continue bronchodilators -PCR for influenza RSV and COVID were negative -incentive spirometry -PT/OT with up to chair with assistance only Needs BiPAP at night and p.r.n. during daytime (3) Acute exacerbation of CHF (congestive heart failure): Qualifiers: Heart failure type: combined systolic and diastolic Qualified Code(s): I50.43 - Acute on chronic combined systolic (congestive) and diastolic (congestive) heart failure Code(s): I50.9 - Heart failure, unspecified Status: Acute Assessment and Plan: Acute on chronic diastolic and systolic heart failure Most recent echocardiogram in April 2023 Summary ? 1. Technically difficult exam because of obesity/definity contrast injected to improve visualization. ? 2. Left ventricular dilation with severe global systolic dysfunction ejection fraction of 30%. ? 3. Diastolic noncompliance. ? 4. Left atrial enlarged. ? 5. No obvious valve dysfunction although quality of the exam is very challenging. -Continue diuresis for volume overload. Change to Lasix twice daily -continue Entresto and Coreg (4) CKD (chronic kidney disease) stage 3, GFR 30-59 ml/min: Qualifiers: Chronic kidney disease stage 3 subtype: stage 3a (GFR 45-59) Qualified Code(s): N18.31 - Chronic kidney disease, stage 3a Code(s): N18.30 - Chronic kidney disease, stage 3 unspecified Status: Acute Assessment and Plan: Patient has chronic kidney disease with recent acute kidney injury which was managed medically and did not require hemodialysis. She was discharged with creatinine 3.2 which was stable on presentation Patient does appear to be volume overloaded and has been started on diuretics. She has responded to diuretics and making urine On past admission patient has seen at risk of requiring MARKETING PROGRAMS SPECIALIST but improved with medical therapy but remains at risk in case renal function worsens or urine output decreases Continue to monitor urine output electrolytes and creatinine -nephrology following (5) Asthma-COPD overlap syndrome: Code(s): J44.9 - Chronic obstructive pulmonary disease, unspecified Status: Acute Assessment and Plan: Bronchodilators (6) Pulmonary edema: Code(s): J81.1 - Chronic pulmonary edema Status: Acute Assessment and Plan: See above (7) Elevated troponin: Code(s): R77.8 - Other specified abnormalities of plasma proteins Status: Acute Assessment and Plan: Patient has always had mildly elevated troponin level and has been evaluated by Cardiology in the past. Recent echo reviewed Continue serial troponin Continue aspirin and statin On Coreg (8) Hypertension: Qualifiers: Hypertension type: unspecified Qualified Code(s): I10 - Essential (primary) hypertension Code(s): I10 - Essential (primary) hypertension Status: Acute Assessment and Plan: Continue isosorbide mononitrate, and Entresto, labetalol, Lasix, clonidine, Coreg, -p.r.n. hydralazine and labetalol -blood pressure is much improved (9) Seizure: Code(s): R56.9 - Unspecified convulsions Status: Acute Assessment and Plan: Continue phenytoin (10) Peripheral arterial disease: Code(s): I73.9 - Peripheral vascular disease, unspecified Status: Acute Assessment and Plan:
[2023-06-05 14:49] VITALS: BP 151/83; PULSE 98; RESP 18; TEMP 36.6; O2SAT 98
[2023-06-05] MEDS: NEOMYCIN/POLYMYXIN/BACITRACIN OINTMENT PACKET 1 PACKET (17:19)
[2023-06-05] MEDS: FUROSEMIDE 40 MG TABLET PO (17:20)
[2023-06-05 20:56] VITALS: BP 158/85; PULSE 76; RESP 18; TEMP 36.6; O2SAT 100
[2023-06-05] MEDS: IPRATROPIUM BR 0.02% INH SOLN 0.5 MG/2.5 ML VIAL INHALATION (21:47)
[2023-06-05] MEDS: ALBUTEROL SULFATE NEB 2.5 MG/3 ML INH INHALATION (21:47)
[2023-06-06] VITALS (8 sets, daily range): BP systolic 112–153; BP diastolic 56–83; PULSE 66–88; RESP 16–23; TEMP 36.4–36.6; O2SAT 97–100
[2023-06-06] MEDS: CENTRAL LINE FLUSH 10 ML IV PUSH (05:35)
[2023-06-06] MEDS: cloNIDine HCL 0.1 MG TABLET 0.3 MG PO ×3 (05:35→20:35)
[2023-06-06 08:41] LABS: Basophils Absolute Auto 0.1 K/mm3 (0.0-0.1); Basophils Percent Auto 0.7 % (0.2-1.2); Eosinophils Absolute Auto 0.3 K/mm3 (0-0.3); Eosinophils Percent Auto 4.4 % (0-4.4); Hematocrit 26.2 % (37.0-47.0); Hemoglobin 7.9 g/dL (12.0-15.0); Immature Granulocyte Absolute 0.06 K/mm3 (0.00-0.031); Immature Granulocyte Percent A 0.9 % (0-0.5); Lymphocytes Absolute Auto 1.75 K/mm3 (0.9-3.2); Lymphocytes Percent Auto 25.5 % (18.3-44.2); Mean Corpuscular HGB Conc 30.2 g/dl (32-36); Mean Corpuscular Hemoglobin 28.3 pg (26-34); Mean Corpuscular Volume 93.9 fl (80-100); Mean Platelet Volume 10.6 fl (7.4-10.4); Monocytes Absolute Auto 0.7 K/mm3 (0.1-0.6); Monocytes Percent Auto 10.5 % (2.6-8.5); Platelet Count Result 238 k/mm3 (150-375); Red Blood Count 2.79 M/mm3 (4.2-5.4); Red Cell Distribution Width 15.6 % (11.5-14.5); White Blood Count 6.9 K/mm3 (4.5-10.0)
[2023-06-06 08:59] LABS: Alanine Aminotransferase 20 U/L (6-35); Albumin Level 3.6 g/dL (3.5-5.1); Alkaline Phosphatase 103 U/L (38-126); Anion Gap 10 mmol/L (8-16); Aspartate Amino Transferase 23 U/L (14-36); Bilirubin,Total 0.3 mg/dL (0.2-1.3); Blood Urea Nitrogen 75 mg/dL (7-17); Calcium 8.4 mg/dL (8.4-10.2); Carbon Dioxide 24 mmol/L (22-30); Chloride 104 mmol/L (98-107); Estimated CRCL calculation 22 ml/min; Estimated Glomerular Filt Rate 14; Glucose 98 mg/dL (65-110); Magnesium 2.4 mg/dL (1.6-2.3); Potassium 4.3 mmol/L (3.4-5.0); Sodium 138 mmol/L (137-145)
[2023-06-06] MEDS: PANTOPRAZOLE 40 MG TABLET PO (10:00)
[2023-06-06] MEDS: SACUBITRIL/VALSARTAN 49-51 MG TABLET 1 TABLET PO ×2 (10:00→17:09)
[2023-06-06] MEDS: ATORVASTATIN 40 MG TABLET 80 MG PO (10:00)
[2023-06-06] MEDS: ENOXAPARIN 40 MG/0.4 ML SYRINGE SUB-Q (10:00)
[2023-06-06] MEDS: FUROSEMIDE 40 MG TABLET PO ×2 (10:00→17:11)
[2023-06-06] MEDS: LABETALOL HCL 100 MG TABLET PO (10:00)
[2023-06-06] MEDS: ISOSORBIDE MONONITRATE 10 MG TABLET PO ×2 (10:00→17:09)
[2023-06-06] MEDS: ASPIRIN 325 MG TABLET PO (10:00)
[2023-06-06] MEDS: carvediloL 25 MG TABLET PO ×2 (10:02→20:35)
[2023-06-06] MEDS: hydrALAZINE HCL 25 MG TABLET PO ×4 (10:03→20:35)
[2023-06-06] MEDS: EPOETIN ALFA-EPBX 10,000 UNITS/ML VIAL 10000 UNITS SUB-Q (12:23)
[2023-06-06] MEDS: TOLNAFTATE 1% POWDER 45 GM BTL 1 APPLIC TOPICAL ×2 (13:16→21:50)
--- NOTE | 2023-06-06 13:54 | P.PNNP_ITS ---
Progress Note: A&P Assessment and Plan (1) ARMIN (acute kidney injury): Code(s): N17.9 - Acute kidney failure, unspecified Status: Acute Assessment and Plan: * noted on previous hospitalization here at [facility] in April 2022 * discharged with a creatinine of 3.7mg/dl at that time * suspected etiology was ATN due to infection (COVID + pneumonia) and CHF exacerbation * evaluation during April 2023 admission noted: * renal ultrasound with medical renal disease (incomplete visualization of left kidney) * CPK okay * UA with blood and protein along with?granular casts * urine electrolytes never done * no peripheral eosinophilia or rash * serologies (GISELA, ANCA, dsDNA-Ab, antiGBM-ab, complements, and serm/urine immunofixation) were all negative * suspect new baseline creatinine given recent/recurrent hospitalizations (2) Stage 3a chronic kidney disease: Code(s): N18.31 - Chronic kidney disease, stage 3a Status: Chronic Assessment and Plan: * creatinine was running around 1.4 - 1.5mg/dl in November 2021 * presumably secondary to hypertension and vascular disease as well as chronic pre renal azotemia due to CHF * suspect component of CKD progression on top of ARMIN/ARF from last hospital admissions (3) Acute and chronic respiratory failure with hypoxia: Code(s): J96.21 - Acute and chronic respiratory failure with hypoxia Status: Acute Assessment and Plan: * resolved * on diuretics to prevent a recurrence - transitioned to oral (4) Acute exacerbation of CHF (congestive heart failure): Qualifiers: Heart failure type: combined systolic and diastolic Qualified Code(s): I50.43 - Acute on chronic combined systolic (congestive) and diastolic (congesti ve) heart failure Code(s): I50.9 - Heart failure, unspecified Status: Acute Assessment and Plan: * known cardiomyomathy * last Echo with EF of 30% * continue diuresis - she seems at a good balance now with comfortable breathing. * follow I/Os, CXR/respiratory status, and daily weights * likely approaching dialysis in the near future -- no acute indications at this time (5) Hypertension: Qualifiers: Hypertension type: unspecified Qualified Code(s): I10 - Essential (primary) hypertension Code(s): I10 - Essential (primary) hypertension Status: Acute Assessment and Plan: * better control at this time * adjusting medications as tolerated * follow trend of hemodynamics (6) Urinary tract infection: Code(s): N39.0 - Urinary tract infection, site not specified Status: Acute Assessment and Plan: * admission UA suggestive * culture results noted - E.coli * on antibiotics (7) Anemia: Qualifiers: Anemia type: due to chronic kidney disease Chronic kidney disease stage: stage 3 (moderate) Code(s): D64.9 - Anemia, unspecified Status: Chronic Assessment and Plan: * presumably due to CKD and recurrent hospitalizations/acute illness * on Epogen * follow H/H Will continue to follow. Subjective Date/time seen: 06/06/23 13:54 Interval history: Follow-up for acute kidney injury/acute renal failure on chronic kidney disease versus chronic kidney disease. Respiratory status seems stable if not better at this time; renal function holding stable as well; no apparent distress noted at the time of my visit; tolerating oral diuretic therapy. Exam Narrative:
--- NOTE | 2023-06-06 13:54 | PM.PNNEP ---
Progress Note: A&P Assessment and Plan (1) ARMIN (acute kidney injury): Code(s): N17.9 - Acute kidney failure, unspecified Status: Acute Assessment and Plan: noted on previous hospitalization here at [facility] in April 2022 discharged with a creatinine of 3.7mg/dl at that time suspected etiology was ATN due to infection (COVID + pneumonia) and CHF exacerbation evaluation during April 2023 admission noted: renal ultrasound with medical renal disease (incomplete visualization of left kidney) CPK okay UA with blood and protein along with?granular casts urine electrolytes never done no peripheral eosinophilia or rash serologies (GISELA, ANCA, dsDNA-Ab, antiGBM-ab, complements, and serm/urine immunofixation) were all negative suspect new baseline creatinine given recent/recurrent hospitalizations (2) Stage 3a chronic kidney disease: Code(s): N18.31 - Chronic kidney disease, stage 3a Status: Chronic Assessment and Plan: creatinine was running around 1.4 - 1.5mg/dl in November 2021 presumably secondary to hypertension and vascular disease as well as chronic pre renal azotemia due to CHF suspect component of CKD progression on top of ARMIN/ARF from last hospital admissions (3) Acute and chronic respiratory failure with hypoxia: Code(s): J96.21 - Acute and chronic respiratory failure with hypoxia Status: Acute Assessment and Plan: resolved on diuretics to prevent a recurrence - transitioned to oral (4) Acute exacerbation of CHF (congestive heart failure): Qualifiers: Heart failure type: combined systolic and diastolic Qualified Code(s): I50.43 - Acute on chronic combined systolic (congestive) and diastolic (congestive) heart failure Code(s): I50.9 - Heart failure, unspecified Status: Acute Assessment and Plan: known cardiomyomathy last Echo with EF of 30% continue diuresis - she seems at a good balance now with comfortable breathing. follow I/Os, CXR/respiratory status, and daily weights likely approaching dialysis in the near future -- no acute indications at this time (5) Hypertension: Qualifiers: Hypertension type: unspecified Qualified Code(s): I10 - Essential (primary) hypertension Code(s): I10 - Essential (primary) hypertension Status: Acute Assessment and Plan: better control at this time adjusting medications as tolerated follow trend of hemodynamics (6) Urinary tract infection: Code(s): N39.0 - Urinary tract infection, site not specified Status: Acute Assessment and Plan: admission UA suggestive culture results noted - E.coli on antibiotics (7) Anemia: Qualifiers: Anemia type: due to chronic kidney disease Chronic kidney disease stage: stage 3 (moderate) Code(s): D64.9 - Anemia, unspecified Status: Chronic Assessment and Plan: presumably due to CKD and recurrent hospitalizations/acute illness on Epogen follow H/H Will continue to follow. Subjective Date/time seen: 06/06/23 13:54 Interval history: Follow-up for acute kidney injury/acute renal failure on chronic kidney disease versus chronic kidney disease. Respiratory status seems stable if not better at this time; renal function holding stable as well; no apparent distress noted at the time of my visit; tolerating oral diuretic therapy. Exam Narrative: General: Large female in NAD Heart: normal S1 and S2; no rub Lungs: clear anteriorly Abdomen: soft, nontender, nondistended, positive bowel sounds Extremities: no cyanosis or clubbing; 1+ edema in LLE; s/p right AKA Skin: warm and intact Objective Data Vital Signs Vital Signs: Vital Signs Temp Pulse Resp BP Pulse Ox O2 Del Method 06/06/23 13:33 97.9 F 80 16 151/73 H 99 06/06/23 10:02 70 06/06/23 10:00 70 06/06/23 04:02 69 19 98 Bi
--- NOTE | 2023-06-06 15:21 | PM.DS ---
DS: Admitting Diagnosis Discharge Date 06/06/2023 Admitting Diagnosis Shortness of breath DS: Discharge Diagnosis Discharge Diagnosis (1) Urinary tract infection: Code(s): N39.0 - Urinary tract infection, site not specified Status: Acute (2) Acute and chronic respiratory failure with hypoxia: Code(s): J96.21 - Acute and chronic respiratory failure with hypoxia Status: Acute (3) Acute exacerbation of CHF (congestive heart failure): Qualifiers: Heart failure type: combined systolic and diastolic Qualified Code(s): I50.43 - Acute on chronic combined systolic (congestive) and diastolic (congestive) heart failure Code(s): I50.9 - Heart failure, unspecified Status: Acute (4) CKD (chronic kidney disease) stage 3, GFR 30-59 ml/min: Qualifiers: Chronic kidney disease stage 3 subtype: stage 3a (GFR 45-59) Qualified Code(s): N18.31 - Chronic kidney disease, stage 3a Code(s): N18.30 - Chronic kidney disease, stage 3 unspecified Status: Acute (5) Asthma-COPD overlap syndrome: Code(s): J44.9 - Chronic obstructive pulmonary disease, unspecified Status: Acute (6) Pulmonary edema: Code(s): J81.1 - Chronic pulmonary edema Status: Acute (7) Elevated troponin: Code(s): R77.8 - Other specified abnormalities of plasma proteins Status: Acute (8) Hypertension: Qualifiers: Hypertension type: unspecified Qualified Code(s): I10 - Essential (primary) hypertension Code(s): I10 - Essential (primary) hypertension Status: Acute (9) Seizure: Code(s): R56.9 - Unspecified convulsions Status: Acute (10) Peripheral arterial disease: Code(s): I73.9 - Peripheral vascular disease, unspecified Status: Acute DS: Summary Hospital Course Hospital Course: This is a 52-year-old female snf resident [facility] presented via EMS due to shortness of breath with hypoxia with oxygen saturation down to 70%. She was trialed on non-rebreather modest increase in oxygen saturations 80% and subsequently was placed on CPAP with improvement to 97%. Will arrival to the ED she had Rosanna B lines on the bedside ultrasound and chest x-ray showing cardiomegaly extensive bilateral pulmonary infiltrates suggestive of congestive heart failure pulmonary edema increased in severity since last admission on 05/22/2023. She had recent 2 admissions for similar presentations in 04/15/2023 to 04/26 08/28 again on 05/17/2023 to 05/22/2023. Admission in April patient required intubation. She has underlying chronic kidney disease stage IV. Additional workup showed no leukocytosis stable anemia with hemoglobin of 8.9 troponin was 0.048 [place] [address] improved compared to prior level of 17,600 viral PCR was negative. She was placed on BiPAP with some improvement in her respiratory status however was needed to be intubated shortly after admission. She was continued on diuresis with IV Lasix with subsequent improvement ultimately was extubated on 06/01/2023. She is continued on bronchodilators and BiPAP was continued at night and p.r.n. during daytime. She was also noted to have ESBL E coli susceptible only to imipenem meropenem and Zosyn during hospital course and was treated successfully and completed the course with meropenem during the hospital stay. Her chest x-ray source stable congestion in her lungs and her diuresis was switched to oral Lasix. She is at risk for requiring renal replacement therapy however with medical treatment her respiratory status is improved back to her baseline level. She was also hypertensive and her blood pressure medication were adjusted during the hospital stay. Her labetalol was a tapered off and added on hydralazine for blood pressure control. She was started on diet upon evaluation with the speech therapy and suggested to be on minced moist with thickened liquids. To contin
--- NOTE | 2023-06-06 15:33 | PCSTNOTE ---
Please refer to the Bedside Swallow Evaluation in the EMR. Please note, silent aspiration cannot be ruled out at bedside.
--- NOTE | 2023-06-06 16:14 | PC.NURSE ---
Dermatology Physician Assistant attempted to call facility x2. Discharge information was faxed
--- NOTE | 2023-06-06 19:40 | PC.NURSE ---
Report called to Inez at [facility] with all questions answered.
== END 2023-06-07 02:25 | DRG 130 ==
LOC: ANHED 07:59 → ANHIMU 10:26 → ANHICU 12:58 → ANH3MED 06-03 18:04
PROVIDERS: Internal Medicine; Internal Medicine Nephrology; Student in an Organized Health Care Education/Training Program; Admitting Provider Internal Medicine; Emergency Provider Emergency Medicine; PCP Internal Medicine; Visit Provider Internal Medicine
DX: J96.21 Acute and chronic respiratory failure with hypoxia (principal); I50.43 Acute on chronic combined systolic (congestive) and diastolic (congestive) heart failure; I13.0 Hypertensive heart and chronic kidney disease with heart failure and stage 1 through stage 4 chronic kidney disease, or unspecified chronic kidney disease; N17.9 Acute kidney failure, unspecified; N18.4 Chronic kidney disease, stage 4 (severe); I42.9 Cardiomyopathy, unspecified; E87.0 Hyperosmolality and hypernatremia; N39.0 Urinary tract infection, site not specified; J44.1 Chronic obstructive pulmonary disease with (acute) exacerbation; I87.2 Venous insufficiency (chronic) (peripheral); B96.20 Unspecified Escherichia coli [E. coli] as the cause of diseases classified elsewhere; D50.9 Iron deficiency anemia, unspecified; E78.5 Hyperlipidemia, unspecified; E55.9 Vitamin D deficiency, unspecified; K21.9 Gastro-esophageal reflux disease without esophagitis; R79.89 Other specified abnormal findings of blood chemistry; R56.9 Unspecified convulsions; F79 Unspecified intellectual disabilities; Z16.12 Extended spectrum beta lactamase (ESBL) resistance; Z20.822 Contact with and (suspected) exposure to COVID-19; Z87.891 Personal history of nicotine dependence; Z79.82 Long term (current) use of aspirin; Z99.81 Dependence on supplemental oxygen; Z86.73 Personal history of transient ischemic attack (TIA), and cerebral infarction without residual deficits
CPT/HCPCS: 36415; 36600; 71045; 80053; 81001; 82375; 82805; 82948; 83050; 83605; 83735; 83880; 83930; 83935; 84100; 84145; 84300; 84478; 84484; 85025; 85027; 86704; 86706; 87077; 87086; 87088; 87186; 87340; 87637; 92610; 93005; 93922; 94002; 94003; 94640; 96374; 97165; 99285; A9270; C1751; C9113; J0360; J0696; J1650; J1939; J1940; J2185; J2250; J2704; J3010; J7030; Q5105

== ENCOUNTER 2023-06-09 13:43 | Observation (INO) | payer BC, SELFPAY ==
[2023-06-09] VITALS (7 sets, daily range): BP systolic 159–167; BP diastolic 78–96; PULSE 80–89; RESP 14–18; TEMP 36.3–36.9; O2SAT 95–100; BMI 64.5
--- NOTE | ~2023-06-09 | CT_ITS ---
EXAMINATION: CT cervical spine wo con DATE: 06/09/2023 14:42 INDICATION: Fall with no recollection of the circumstance of the fall TECHNIQUE: Computed tomography (CT) of the cervical spine was performed without intravenous contrast. Automated exposure control and iterative reconstruction technique were employed. The dose-length pro duct was 570.08 mGy-cm. COMPARISON: None FINDINGS: Alignment is normal. Vertebral body heights are normal. No fracture. Mild disc height loss with small endplate osteophytes and mild uncovertebral osteoarthritis at C4-C5 and C5-C6. There is also multile lm bilateral mild cervical facet osteoarthritis. There is no evident central canal or neural foramin al stenosis. Bilateral carotid atherosclerotic calcifications. Cervical soft tissues are otherwise un remarkable. Visualized apices of lungs are clear. IMPRESSION: 1. Mild cervical spondylosis. No acute osseous abnormality. Reviewed, dictated and finalized at location A. E BENDER FURNACE TENDER
--- NOTE | ~2023-06-09 | XR_ITS ---
EXAMINATION: XR chest 1V DATE: 06/09/2023 14:48 INDICATION: Shortness of breath TECHNIQUE: frontal view of the chest was obtained. COMPARISON: Chest radiograph dated 06/03/2023 FINDINGS: Unchanged elevation of the right hemidiaphragm. No focal airspace opacities, pulmonary edema, pleural effusion or pneumothorax. Borderline heart size accounting for AP technique. IMPRESSION: 1. Unchanged elevation of the right hemidiaphragm and borderline heart size. Reviewed, dictated and finalized at location A. RHOUSE OPERATOR
--- NOTE | ~2023-06-09 | CT_ITS ---
EXAMINATION: CT brain wo con INDICATION: Monitoring known subdural hematoma COMPARISON: 06/09/2023 TECHNIQUE: Standard unenhanced head CT. The dose-length product (DLP) was 605.33 mGy-cm. The mA was a djusted according to patient size. Iterative reconstruction technique was employed. FINDINGS: Although evaluation is slightly limited by motion. There is an unchanged appearing low-dens ity, small right frontal subdural hematoma. Areas of prior infarction are noted in the frontal lobes and right basal ganglia. No acute infarction or intracranial mass are identified. There is no acute i ntraparenchymal hemorrhage. The ventricles are normal. No abnormal mass effect or midline shift. The basal cisterns are patent. The orbits are normal. There is mild mucosal thickening of the paranasal s inuses. IMPRESSION: 1. Small, stable right subdural hematoma. 2. Areas of prior infarction without acute infarct identified. Reviewed, dictated and finalized at location F. IC POLICY MEDIATOR
--- NOTE | ~2023-06-09 | XR_ITS ---
EXAMINATION: XR pelvis 1-2V DATE: 06/09/2023 14:48 INDICATION: Pelvic pain post fall TECHNIQUE: An anteroposterior view of the pelvis was obtained. COMPARISON: None. FINDINGS: Bone alignment is normal. No fracture. Mild osteoarthritis at the bilateral hip and sacroiliac joints . Large ball of stool at the rectum. Atherosclerotic ossifications in the pelvis and proximal right t high. IMPRESSION: 1. No acute osseous abnormality. Reviewed, dictated and finalized at location A. FIELD CASE MANAGER
--- NOTE | ~2023-06-09 | CT_ITS ---
EXAMINATION: CT brain wo con DATE: 06/09/2023 14:38 INDICATION: Head trauma post fall from bed TECHNIQUE: Computed tomography (CT) of the head was performed without intravenous contrast. Sagittal and coronal reconstructions were performed. The mA was adjusted according to patient size. Iterative reconstruction technique was employed. The dose-length product was 605.33 mGy-cm. COMPARISON: head CT dated 04/15/2023 FINDINGS: No fracture. There is a subtle small subdural hematoma overlying the right frontal lobe which measure s up to 3 mm in maximal thickness. The density is between that of the brain and CSF suggesting this m ay be subacute. No acute infarction. Again seen is a moderate to large region of encephalomalacia in the left frontal lobe and a couple small regions of encephalomalacia is in the medial left frontal lo be and at the head of the left caudate nucleus extending to the left frontal lobe harper radiata cons istent with chronic infarcts. Symmetric prominence of the sulci and subarachnoid spaces overlying the frontal convexities consistent with mild age-appropriate diffuse cerebral volume loss. Ventricles a re normal and symmetric. No mass/mass effect. The orbits are normal. Small right mastoid effusion. De pendently layering mucus in the right sphenoid sinus. IMPRESSION: 1. Small right frontal subdural hematoma is of relatively low density which favors subacute to chroni c over acute . 2. No change in regions of infarct in the bilateral frontal lobes and at the right basal ganglia. 3. Reviewed, dictated and finalized at location A. RVISOR FELLING BUCKING IMPRESSION: 1. Small right frontal subdural hematoma is of relatively low density which fav ors subacute to chronic over acute . 2. No change in regions of infarct in the bilateral frontal lobes and at the ri ght basal ganglia. 3.
--- NOTE | 2023-06-09 13:58 | ED.FALL ---
HPI - Fall General Chief Complaint: Fall Stated Complaint: fall Time Seen by Provider: 06/09/23 13:58 History of Present Illness HPI Narrative: Patient is a 52-year-old female here from her facility after a fall from approximately 2 ft. Patient does not remember the fall, does not know if she hit her head, denies any headache, neck pain, chest pain, extremity injuries. EMS had initially told nursing that she was complaining of some shortness of breath when they moved her from the floor to her stretcher. Her oxygen saturation for them initially was 99% on her baseline 1 L nasal cannula, she was tradition a 2 L nasal cannula for comfort. She does have multiple sick contacts at her shelter with COVID, influenza, RSV. Patient currently denies any cough, congestion, fever, chills, shortness of breath, chest pain. Related Data Home Medications Medication Instructions Recorded Confirmed acetaminophen 325 mg tablet 650 mg PO Q6H PRN Pain (Scale 08/26/21 05/27/23 (Tylenol) Score 1-3) aspirin 81 mg chewable tablet 81 mg PO DAILY 08/26/21 05/27/23 (Aspirin Childrens) atorvastatin 80 mg tablet (Lipitor) 80 mg PO HS 08/26/21 05/27/23 benzonatate 200 mg capsule 200 mg PO Q8H PRN Cough 08/26/21 05/27/23 calcium carb-vit D3-minerals 600 2 tablet PO DAILY 08/26/21 05/27/23 mg calcium-400 unit tablet ergocalciferol (vitamin D2) 1,250 50,000 unit PO WEEKLY 08/26/21 05/27/23 mcg (50,000 unit) capsule (Vitamin D2) ferrous sulfate 325 mg (65 mg 325 mg PO BID 08/26/21 05/27/23 iron) tablet isosorbide mononitrate 30 mg 30 mg PO DAILY 08/26/21 05/27/23 tablet,extended release 24 hr phenytoin 100 mg/4 mL oral 200 mg PO BID 08/26/21 05/27/23 suspension escitalopram oxalate 10 mg tablet 1 tablet PO DAILY 10/30/21 05/27/23 phenytoin 100 mg/4 mL oral 200 mg PO QPM 10/30/21 05/27/23 suspension spironolactone 25 mg tablet 1 tablet PO DAILY 10/30/21 05/27/23 nystatin 100,000 unit/gram topical 1 applic topical PRN PRN abdominal 05/27/23 05/27/23 powder folds and groin sacubitril 49 mg-valsartan 51 mg 1 tablet PO BID 05/27/23 05/27/23 tablet (Entresto) Allergies Allergy/AdvReac Type Severity Reaction Status Date / Time No Known Allergies Allergy Verified 11/22/21 16:08 Review of Systems Review of Systems: All systems reviewed & are unremarkable except as noted in HPI and below PMFSH Past Medical History Medical History (Updated 06/09/23 @ 16:15 by Jolynn Cleaning MD) Asthma-COPD overlap syndrome Cerebrovascular accident Chronic kidney disease Congestive heart failure Echocardiogram in Apr showed left ventricular dilation with severe global systolic dysfunction with EF of 30%, diastolic noncompliance, left atrial enlarged, no obvious valve dysfunction however somewhat limited due to technically difficult exam due to body habitus. Gastroesophageal reflux disease Hyperlipidemia Hypertension Intellectual disability Iron deficiency anemia Seizure Vitamin D deficiency Surgical History Surgical History History of right above knee amputation Family History Family History Father Congestive heart failure Hypertension Mother Congestive heart failure Hypertension Social History Social History Social History: Surrogate decision maker: Laxmi Marrero, aunt. Code status: Full code. Smoking packs per day: 1 Smoking cigarettes per day: 20.0 Years smoked: 20 Smoking pack-years: 20.00 Smoking status: Unknown if ever smoked Alcohol intake: unknown Substance use: unknown Substance use type: does not use Do You Feel Safe in your Home?: Yes Lack of Transportation: No Lack of Food: Never True Current Housing: I Have Housing Concerned About Future Housing: No Difficulty Paying Gas/Electric Bills: No Difficulty Payin
[2023-06-09 14:45] LABS: Influenza A QL RT-PCR Negative (Negative); Influenza B QL RT-PCR Negative (Negative); RSV RNA, RT-PCR Negative (Negative); SARS-CoV-2 RNA PCR Negative (Negative)
[2023-06-09 17:04] LABS: Basophils Percent Auto 0.4 % (0.2-1.2); Eosinophils Absolute Auto 0.4 K/mm3 (0-0.3); Eosinophils Percent Auto 3.9 % (0-4.4); Hematocrit 30.7 % (37.0-47.0); Hemoglobin 9.1 g/dL (12.0-15.0); Immature Granulocyte Absolute 0.05 K/mm3 (0.00-0.031); Immature Granulocyte Percent A 0.5 % (0-0.5); Immature Platelet Fraction Pct 6.1 % (0.9-11.2); Lymphocytes Absolute Auto 2.04 K/mm3 (0.9-3.2); Lymphocytes Percent Auto 20.1 % (18.3-44.2); Mean Corpuscular HGB Conc 29.6 g/dl (32-36); Mean Corpuscular Hemoglobin 28.5 pg (26-34); Mean Corpuscular Volume 96.2 fl (80-100); Mean Platelet Volume 11.6 fl (7.4-10.4); Monocytes Absolute Auto 0.7 K/mm3 (0.1-0.6); Monocytes Percent Auto 6.9 % (2.6-8.5); Neutrophils Absolute Auto 6.9 K/mm3 (1.3-6.7); Neutrophils Percent Auto 68.2 % (45.5-73.1); Platelet Count Result 242 k/mm3 (150-375); Red Blood Count 3.19 M/mm3 (4.2-5.4); Red Cell Distribution Width 15.5 % (11.5-14.5); White Blood Count 10.2 K/mm3 (4.5-10.0)
[2023-06-09 17:15] LABS: Alanine Aminotransferase 23 U/L (6-35); Albumin Level 3.9 g/dL (3.5-5.1); Alkaline Phosphatase 125 U/L (38-126); Anion Gap 9 mmol/L (8-16); Aspartate Amino Transferase 23 U/L (14-36); Bilirubin,Total 0.4 mg/dL (0.2-1.3); Blood Urea Nitrogen 61 mg/dL (7-17); Carbon Dioxide 25 mmol/L (22-30); Chloride 107 mmol/L (98-107); Estimated CRCL calculation 35 ml/min; Estimated Glomerular Filt Rate 21; Glucose 100 mg/dL (65-110); Potassium 4.6 mmol/L (3.4-5.0); Sodium 141 mmol/L (137-145)
[2023-06-09 17:19] LABS: Hypochromasia 1+ (NORMAL); INR 1.2; Partial Thromboplastin Time 28.2 SECONDS (22.3-36.8); Platelet Estimate Adequate (Adequate); Prothrombin Time 16.2 Seconds (11.1-14.7); Schistocytes None Seen (NORMAL); Tear Drop Cells 1+ (NORMAL)
--- NOTE | 2023-06-09 18:24 | ADMGEN ---
This patient, Mirela Preston, was admitted to IMU Room 232-01. Patient/family oriented to hospital policies and general routines including ID bracelet, bed and alarms, visiting hours, pain management, procedures, bathroom and other care routines, personal items, smoking policy, room service/diet, and visiting hours. Information on how to activate the Rapid Response Team has been discussed. Patient/Family are encouraged to report perceived risks to care and to ask questions if they do not understand what they are told or what they should do.
[2023-06-10] VITALS (12 sets, daily range): BP systolic 149–158; BP diastolic 73–86; PULSE 80–98; RESP 15–20; TEMP 36.1–36.6; O2SAT 95–99
--- NOTE | 2023-06-10 01:49 | PM.IMHP ---
H&P: HPI History of Present Illness Date/Time: 06/10/23 01:49 Chief Complaint: Fall Narrative: 52 y/o F presents here for evaluation post-ground level fall with PMH of asthma/COPD, CVA, CHF, GERD, HLD, HTN, intellectual disability, CAROLYNN, seizures, vitamin D deficiency. Patient presents here for evaluation after she sustained a ground level fall from bed. Patient has a right AKA. Fall was unwitnessed Patient does not recall the fall/ events. Unclear if patient hit her head but is currently denying any headache, neck pain, chest pain, pain to her upper extremities or lower extremities. Did have brief period of subjective shortness of breath which she was moved from the floor to the stretcher by EMS. No hypoxia at arrival. Current facility has had multiple sick contacts i.e. COVID, flu, RSV. But patient is currently denying any cough, rhinorrhea, fever, chills, body aches, or shortness of breath. Currently using supplemental O2 for comfort at 1L NC as needed. No deviations in mental status from baseline which is A/Ox1-2 with slow would/delayed responses. Recent admission from 05/27-06/06 For acute respiratory failure with hypoxia, patient was subsequently intubated. Patient was diuresed, given bronchodilators, with subsequent improvement and patient was extubated on 06/01. Bronchodilators were continued and BiPAP was placed at night. Patient had UTI with ESBL. patient had ARMIN superimposed on CKD, with peak creatinine of 4.2. Switched from labetalol to hydralazine. Speech recommended patient be started on minced/ moist with thickened liquids diet And will require follow-up with speech therapy at her nursing facility. was subsequently discharged on room air and retaining chronic Pastor catheter. Initial VS: 98.3? F, HR in 89, RR 15, 99% on room air, 161/78. ED workup showed WBC of 10.2, HGB of 9.1, PT of 16.2, creatinine of 2.9 ( previously 4), BUN of 61, GFR of 21, viral PCR negative. trauma workup/imaging otherwise benign, excluding head CT. Head CT showed small right frontal SDH of relatively low density which favors subacute to chronic versus acute. Review of Systems Review of Systems: All systems reviewed & are unremarkable except as noted in HPI and below PMFSH Past Medical History Medical History Asthma-COPD overlap syndrome Cerebrovascular accident Chronic kidney disease Congestive heart failure Echocardiogram in Apr showed left ventricular dilation with severe global systolic dysfunction with EF of 30%, diastolic noncompliance, left atrial enlarged, no obvious valve dysfunction however somewhat limited due to technically difficult exam due to body habitus. Gastroesophageal reflux disease Hyperlipidemia Hypertension Intellectual disability Iron deficiency anemia Seizure Vitamin D deficiency Surgical History Surgical History History of right above knee amputation Family History Family History Father Congestive heart failure Hypertension Mother Congestive heart failure Hypertension Social History Social History Social History: Surrogate decision maker: Laxmi Marrero, aunt. Code status: Full code. Smoking packs per day: 1 Smoking cigarettes per day: 20.0 Years smoked: 20 Smoking pack-years: 20.00 Smoking status: Former smoker Tobacco type: cigarettes Second hand tobacco smoke exposure: No Smoking end date: 02/06/23 Alcohol intake: never Substance use: never Substance use type: does not use Do You Feel Safe in your Home?: Yes Lack of Transportation: No Lack of Food: Never True Current Housing: I Have Housing Concerned About Future Housing: No Difficulty Paying Gas/Electric Bills: No Difficulty Paying for Meds: No Currently Unemployed: N
[2023-06-10] MEDS: IPRATROPIUM 0.5 MG/ALBUTEROL SULFATE 2.5 MG AMPUL.NEB 3 ML INHALATION ×2 (02:57→08:54)
[2023-06-10] MEDS: cloNIDine HCL 0.1 MG TABLET 0.3 MG PO (05:44)
[2023-06-10 07:19] LABS: Hematocrit 29.3 % (37.0-47.0); Hemoglobin 8.9 g/dL (12.0-15.0); Mean Corpuscular HGB Conc 30.4 g/dl (32-36); Mean Corpuscular Hemoglobin 28.8 pg (26-34); Mean Corpuscular Volume 94.8 fl (80-100); Mean Platelet Volume 10.4 fl (7.4-10.4); Platelet Count Result 251 k/mm3 (150-375); Red Blood Count 3.09 M/mm3 (4.2-5.4); Red Cell Distribution Width 15.5 % (11.5-14.5); White Blood Count 9.8 K/mm3 (4.5-10.0)
[2023-06-10 07:40] LABS: Anion Gap 8 mmol/L (8-16); Blood Urea Nitrogen 56 mg/dL (7-17); Carbon Dioxide 25 mmol/L (22-30); Chloride 107 mmol/L (98-107); Estimated CRCL calculation 30 ml/min; Estimated Glomerular Filt Rate 21; Glucose 108 mg/dL (65-110); Potassium 4.4 mmol/L (3.4-5.0); Sodium 140 mmol/L (137-145)
[2023-06-10] MEDS: FERROUS SULFATE 325 MG TABLET DR PO (09:03)
[2023-06-10] MEDS: PANTOPRAZOLE 40 MG TABLET PO (09:03)
[2023-06-10] MEDS: SPIRONOLACTONE 25 MG TABLET PO (09:03)
[2023-06-10] MEDS: carvediloL 25 MG TABLET PO (09:03)
[2023-06-10] MEDS: ESCITALOPRAM OXALATE 10 MG TABLET PO (09:03)
[2023-06-10] MEDS: hydrALAZINE HCL 25 MG TABLET PO (09:03)
--- NOTE | 2023-06-10 09:03 | PM.IMPN ---
Subjective Date/time seen: 06/10/23 09:03 Objective Data Vital Signs Vital Signs: Vital Signs - 24 hr 06/09/23 13:46 06/09/23 13:55 06/09/23 17:14 Temperature 36.8 C 36.8 C Pulse Rate 89 85 85 Respiratory Rate 15 18 14 Blood Pressure 161/78 H 162/88 H 167/96 H Pulse Oximetry 99 98 97 Oxygen Delivery Room Air Room Air Fraction of Inspired Oxygen 06/09/23 18:45 06/09/23 21:36 06/10/23 01:45 Temperature 36.9 C 36.3 C L 36.3 C L Pulse Rate 80 83 98 Respiratory Rate 15 15 15 Blood Pressure 159/88 H 164/81 H 157/86 H Pulse Oximetry 100 100 95 Oxygen Delivery Fraction of Inspired Oxygen 06/09/23 20:00 06/09/23 22:00 06/10/23 00:00 Temperature Pulse Rate 86 87 94 Respiratory Rate Blood Pressure Pulse Oximetry Oxygen Delivery Fraction of Inspired Oxygen 06/09/23 20:00 06/10/23 00:00 06/10/23 02:00 Temperature Pulse Rate 87 Respiratory Rate Blood Pressure Pulse Oximetry 95 95 Oxygen Delivery Room Air Room Air Fraction of Inspired Oxygen 06/10/23 02:58 06/10/23 03:05 06/10/23 04:00 Temperature 36.1 C L Pulse Rate 88 86 87 Respiratory Rate 19 19 15 Blood Pressure 158/83 H Pulse Oximetry 99 Oxygen Delivery Fraction of Inspired Oxygen 06/10/23 04:00 06/10/23 04:00 06/10/23 06:00 Temperature Pulse Rate 85 95 Respiratory Rate Blood Pressure Pulse Oximetry 99 Oxygen Delivery Room Air Fraction of Inspired Oxygen 06/10/23 07:39 06/10/23 08:54 06/10/23 08:54 Temperature 36.6 C Pulse Rate 88 86 Respiratory Rate 20 20 Blood Pressure 149/73 H Pulse Oximetry 99 98 Oxygen Delivery Room Air Fraction of Inspired Oxygen 21 06/10/23 09:02 Temperature Pulse Rate 83 Respiratory Rate 20 Blood Pressure Pulse Oximetry Oxygen Delivery Fraction of Inspired Oxygen Intake/Output Intake/Output: Intake & Output 06/07/23 06/08/23 06/09/23 06/10/23 23:59 23:59 23:59 23:59 Intake Total 480 Output Total 600 Balance -120 Meds/Results Medications: Active Medications Generic Name Dose Route Start Last Admin Trade Name Freq PRN Reason Stop Dose Admin Acetaminophen 650 mg 06/10/23 02:06 Acetaminophen 325 Mg Tablet PO Q6H PRN Pain (Scale Score 1-3) Albuterol/Ipratropium 3 ml 06/10/23 02:10 06/10/23 08:54 Ipratropium 0.5 Mg/Albuterol Sulfate 2.5 Mg Ampul.Neb 3 Ml INHALATION 3 ml Q6HRT TYRELL Administration Atorvastatin Calcium 80 mg 06/10/23 21:00 Atorvastatin 40 Mg Tablet PO HS TYRELL Benzonatate 200 mg 06/10/23 02:18 Benzonatate 100 Mg Capsule PO Q8H PRN Cough Calcium Carbonate 1,000 mg 06/10/23 09:00 Calcium/Vitamin D 500 Mg Tablet PO DAILY [facility] Carvedilol 25 mg 06/10/23 08:00 Carvedilol 25 Mg Tablet PO BIDWM [facility] Clonidine HCl 0.3 mg 06/10/23 06:00 06/10/23 05:44 Clonidine Hcl 0.1 Mg Tablet PO 0.3 mg Q8HR [facility] Administration Ergocalciferol 50,000 units 06/12/23 09:00 Ergocalciferol 50,000 Units Capsule PO WEEKLY [facility] Escitalopram Oxalate 10 mg 06/10/23 09:00 Escitalopram Oxalate 10 Mg Tablet PO DAILY [facility] Ferrous Sulfate 325 mg 06/10/23 09:00 Ferrous Sulfate [address] PO BID [facility] Furosemide 40 mg 06/10/23 09:00 Furosemide 40 Mg Tablet PO BID [facility] Hydralazine HCl 25 mg 06/10/23 09:00 Hydralazine Hcl 25 Mg Tablet PO QID [facility] Isosorbide Mononitrate 30 mg 06/10/23 09:00 Isosorbide Mononitrate 30 Mg Tab.Er.24h PO DAILY [facility] Pantoprazole Sodium 40 mg 06/10/23 09:00 Pantoprazole 40 Mg Tablet PO QAM [facility] Phenytoin 200 mg 06/10/23 09:00 Phenytoin Susp 100 Mg/4 Ml Udc PO BID [facility] Phenytoin 200 mg 06/10/23 18:00 Phenytoin Susp 100 Mg/4 Ml Udc PO QPM [facility] Sacubitril/Valsartan 1 tablet 06/10/23 09:00 Sacubitril/Valsartan 49-51 Mg Tablet PO BID [facility] Spironolactone 25 mg 06/10/23 09:00
[2023-06-10] MEDS: ISOSORBIDE MONONITRATE 30 MG TAB.ER.24H PO (09:04)
[2023-06-10] MEDS: FUROSEMIDE 40 MG TABLET PO (09:04)
[2023-06-10] MEDS: SACUBITRIL/VALSARTAN 49-51 MG TABLET 1 TABLET PO (09:04)
--- NOTE | 2023-06-10 10:29 | WPDNEUROSGCN ---
Assessment and Plan Assessment and plan (1) Subacute subdural hematoma: Code(s): S06.5XAA - Traumatic subdural hemorrhage with loss of consciousness status unknown, initial encounter Status: Acute Plan Ms. Preston is a 52-year-old female with multiple medical comorbidities including previous CVA, seizures, and intellectual disability who presented to the ER yesterday after sustaining an unwitnessed fall from bed at her [facility] yesterday. She denies any headaches or other symptoms at this time. On exam, she answered orientation questions but otherwise did not verbalize responses. I do not detect a focal neurologic deficit otherwise. I reviewed the CT head from admission and from this morning. I am not convinced that there is actually a right frontal subdural hematoma on either scan, although the scan is of relatively low quality. Regardless, the scan this morning did not show any interval change. I do not see any obvious change compared to a CT head performed in April. At this time, I do not recommend any further imaging or treatment. She may resume aspirin. She may follow up with Neurosurgery on an as-needed basis. Consult date: 06/10/23 Reason for consult: Subdural hematoma HPI: Mirela Preston is a 52 year old female with history of CVA, R AKA, COPD, seizures, HTN, HLD who presented to the ER yesterday after an unwitnessed fall out of bed at her nursing facility. Imaging in the ER showed a right frontal subacute subdural hematoma for which she was admitted. She shook her head no when asked if she has headaches, nausea/vomiting, or pain elsewhere. Review of Systems Review of Systems: All systems reviewed & are unremarkable except as noted in HPI and below PMFSH Past Medical History Medical History Asthma-COPD overlap syndrome Cerebrovascular accident Chronic kidney disease Congestive heart failure Echocardiogram in Apr showed left ventricular dilation with severe global systolic dysfunction with EF of 30%, diastolic noncompliance, left atrial enlarged, no obvious valve dysfunction however somewhat limited due to technically difficult exam due to body habitus. Gastroesophageal reflux disease Hyperlipidemia Hypertension Intellectual disability Iron deficiency anemia Seizure Vitamin D deficiency Surgical History Surgical History History of right above knee amputation Family History Family History Father Congestive heart failure Hypertension Mother Congestive heart failure Hypertension Social History Social History Social History: Surrogate decision maker: Laxmi Marrero, aunt. Code status: Full code. Smoking packs per day: 1 Smoking cigarettes per day: 20.0 Years smoked: 20 Smoking pack-years: 20.00 Smoking status: Former smoker Tobacco type: cigarettes Second hand tobacco smoke exposure: No Smoking end date: 02/06/23 Alcohol intake: never Substance use: never Substance use type: does not use Do You Feel Safe in your Home?: Yes Lack of Transportation: No Lack of Food: Never True Current Housing: I Have Housing Concerned About Future Housing: No Difficulty Paying Gas/Electric Bills: No Difficulty Paying for Meds: No Currently Unemployed: No Education: High School Diploma/GED Difficulty w/ Childcare or Family Care: No Additional living arrangements comments: Resident at [facility] [place]. Additional occupation/education comments: Disabled. Spiritual care concerns: No Meds Home Medications and Allergies Home Medications Medication Instructions Recorded Confirmed Type acetaminophen 325 mg tablet 650 mg PO Q6H PRN Pain (Scale 08/26/21 06/09/23 History (Tylenol) Score 1-3) aspirin 81 m
--- NOTE | 2023-06-10 11:36 | PM.DS ---
DS: Admitting Diagnosis Discharge Date 06/10/2023 Admitting Diagnosis Subacute subdural hematoma, CKD, anemia, hypertension DS: Discharge Diagnosis Discharge Diagnosis (1) Subacute subdural hematoma: Code(s): S06.5XAA - Traumatic subdural hemorrhage with loss of consciousness status unknown, initial encounter Status: Acute (2) CKD (chronic kidney disease) stage 3, GFR 30-59 ml/min: Qualifiers: Chronic kidney disease stage 3 subtype: stage 3a (GFR 45-59) Qualified Code(s): N18.31 - Chronic kidney disease, stage 3a Code(s): N18.30 - Chronic kidney disease, stage 3 unspecified Status: Acute (3) Anemia: Qualifiers: Anemia type: due to chronic kidney disease Chronic kidney disease stage: stage 3 (moderate) Code(s): D64.9 - Anemia, unspecified Status: Chronic (4) Hypertension: Qualifiers: Hypertension type: unspecified Qualified Code(s): I10 - Essential (primary) hypertension Code(s): I10 - Essential (primary) hypertension Status: Acute DS: Summary Hospital Course Reason for hospitalization: Unwitnessed fall CT imaging possible subdural hemorrhage Hospital Course: This is a 52-year-old female patient chronic resident of [facility] who was found unwitnessed fall lying on the ground. Patient was brought to the emergency department a and workup was concerning for a possible right subdural hemorrhage favoring subacute to chronic. For this reason patient was admitted to the hospital for overnight observation repeat imaging this morning. Neurosurgery was contacted and agreed to consult in order to keep patient from being transferred to another facility. This morning repeat CT scan was unchanged per Radiology interpretation. Neuro surgery evaluated patient and questions whether this is actually a subdural at all and recommended restarting all medications and agreeing with discharge. Status at Discharge Cognitive/behavioral status at discharge: Awake, answering questions, cognitively delayed, pleasant Functional status at discharge: wheelchair bound Overall status at discharge: patient is back to baseline Time Spent with Patient Time attestation: Total time spent providing and/or coordinating discharge services: 35 minutes Exam Const: General: comfortable and no acute distress Other: obese body habitus, , female HENMT: Face/Nose/Sinus: Normal nares present Mouth: Yes moist mucous membranes Eyes: General: appearance normal, both eyes and all related structures Sclera: sclerae normal Pupils: Equal, round and reactive pupils present EOM: EOMs intact bilaterally Other: pupils are 2 mm bilaterally Resp: Effort & Inspection: normal respiratory effort Auscultation: clear to auscultation bilaterally Cardio: Rate: regular rate Rhythm: regular rhythm Other: S1-S2 present without murmur, rub, ectopy GI: Other: nondistended, nontender Skin: General skin exam: normal color and no rashes or lesions noted Wounds: no wounds Neuro: Cranial nerves: Yes Equal, round and reactive pupils present Sensory Exam: normal sensation Extrem: Other: Right AKA Psych: Mental Status: mental status grossly normal Affect: normal affect Other: limited insight and judgment DS: Data Data Completed and Pending Completed studies during hospitalization: Head CT, C-spine CT, pelvis x-ray, chest x-ray, repeat head CT Labs on day of discharge: Labs from last 24 hours 06/10/23 06/09/23 06/09/23 07:07 16:51 14:04 WBC 9.8 10.2 H RBC 3.09 L 3.19 L Hgb 8.9 L 9.1 L Hct 29.3 L 30.7 L MCV 94.8 96.2 MCH 28.8 28.5 MCHC 30.4 L 29.6 L RDW 15.5 H 15.5 H Plt Count 251 242 MPV 10.4 11.6 H Immature Gran % (Auto) 0.5 Neut % (Auto) 68.2 Lymph % (Auto) 20.1 Crisp % (Auto) 6.9 Eos % (Auto) 3.9 Baso % (Auto) 0.4 Lymph # (Auto) 2.04 Crisp # (Auto) 0.7 H
== END 2023-06-10 13:45 ==
LOC: ANHED 16:15 → ANHIMU 19:11
PROVIDERS: Student in an Organized Health Care Education/Training Program; Admitting Provider Family Medicine; Emergency Provider Student in an Organized Health Care Education/Training Program; Visit Provider Hospitalist
DX: S06.5XAA Traumatic subdural hemorrhage with loss of consciousness status unknown, initial encounter (principal); W06.XXXA Fall from bed, initial encounter; J44.9 Chronic obstructive pulmonary disease, unspecified; I13.0 Hypertensive heart and chronic kidney disease with heart failure and stage 1 through stage 4 chronic kidney disease, or unspecified chronic kidney disease; I50.20 Unspecified systolic (congestive) heart failure; N18.31 Chronic kidney disease, stage 3a; K21.9 Gastro-esophageal reflux disease without esophagitis; E78.5 Hyperlipidemia, unspecified; G40.909 Epilepsy, unspecified, not intractable, without status epilepticus; F79 Unspecified intellectual disabilities; D50.9 Iron deficiency anemia, unspecified; E55.9 Vitamin D deficiency, unspecified; Z89.611 Acquired absence of right leg above knee; M47.812 Spondylosis without myelopathy or radiculopathy, cervical region; Z20.822 Contact with and (suspected) exposure to COVID-19; Z87.891 Personal history of nicotine dependence; Z86.73 Personal history of transient ischemic attack (TIA), and cerebral infarction without residual deficits; Z79.1 Long term (current) use of non-steroidal anti-inflammatories (NSAID); Z79.82 Long term (current) use of aspirin; Z79.899 Other long term (current) drug therapy; Z82.49 Family history of ischemic heart disease and other diseases of the circulatory system
CPT/HCPCS: 36415; 70450; 71045; 72125; 72170; 80048; 80053; 85025; 85027; 85055; 85610; 85730; 87637; 94640; 99285; A9270; G0378; G0379

== ENCOUNTER 2023-07-04 07:12 | Inpatient (IN) | payer BC, SELFPAY ==
[2023-07-04] VITALS (35 sets, daily range): BP systolic 163–212; BP diastolic 100–140; PULSE 100–128; RESP 22–45; TEMP 36.2–36.7; O2SAT 91–100
--- NOTE | 2023-07-04 | ECHO_ITS ---
Patient Info Name: Mirela Preston Age: 52 years : 1970 Gender: Female Ht: 62 in Wt: 308 lbs BSA: 2.57 m2 HR: 101 bpm BP: 166 / 110 mmHg Heart Rhythm: Tachycardia Technical Quality: Poor Exam Date: 07/04/2023 11:36 AM Exam Location: Echo Lab Patient Status: Emergency Admit Date: 07/04/2023 Staff Ordering Physician: Haydee Sylvester MD Heavy [employer] We[employer] Infantryman: Hazel He RDCS Attending Provider: Sanket Henning MD Exam Type: CA echo dop color flow w con Study Info Indications - hypoxia Complete two-dimensional, color flow and Doppler transthoracic echocardiogram is performed with contrast to opacify the left ventricle and to improve the deliniation of the left ventricle endocardial borders. Contrast/Agitated Saline Contrast/Ag. Saline: Definity Amount: 3.00 ml Administered By: Hazel He RDCS Existing IV Access: Yes IV Access Condition: patent with no signs of infiltration Summary 1. Technically difficult study with limited views. 2. Left ventricular chamber dimension is moderately enlarged. 3. Left ventricular systolic function is severely reduced, estimated at 20-25%. 4. There is moderately increased left ventricular wall thickness. 5. Left atrial chamber dimension is moderately enlarged. 6. There is mild mitral valve regurgitation. 7. There is mild tricuspid valve regurgitation. Left Ventricle Left ventricular chamber dimension is moderately enlarged. Left ventricular systolic function is severely reduced, estimated at 20-25%. There is moderately increased left ventricular wall thickness. Right Ventricle Right ventricular chamber dimension is not well visualized. Left Atria Left atrial chamber dimension is moderately enlarged. Right Atria Right atrial chamber dimension is not well visualized. Atrial Septum Intact interatrial septum visualized by color flow imaging. Aortic Valve The aortic valve is not well visualized. There is no aortic valve regurgitation. There is mild aortic valve calcification. Pulmonic Valve The pulmonic valve is not well visualized. There is trace pulmonic regurgitation. Mitral Valve There is mild mitral valve regurgitation. Tricuspid Valve There is mild tricuspid valve regurgitation. Pericardium/Pleural Pericardium is normal in appearance with no evidence for significant pericardial effusion. Inferior Vena Cava Dilated inferior vena cava with >50% collapse upon inspiration consistent with elevated right atrial pressure, 8 mmHg. Aorta The aortic root size at the sinus of Valsalva is normal. Left Ventricular Outflow Tract Name Value Normal LVOT 2D LVOT Diameter 2.17 cm LVOT Doppler LVOT Peak Gradient 1 mmHg LVOT Mean Gradient 0 mmHg LVOT VTI 4.39 cm LVOT VTI/AV VTI Ratio 0.36 LVOT Stroke Volume 16.18 ml LVOT CO 1.97 l/min LVOT CI 0.77 L/min/m2 Pulmonic Valve Name Value
--- NOTE | ~2023-07-04 | XR_ITS ---
EXAMINATION: XR chest 1V portable INDICATION: Shortness of breath TECHNIQUE: Portable AP chest at 0829 hours COMPARISON: 06/09/2023 FINDINGS: Diffuse interstitial and airspace opacities are present around both lungs, right greater th an left. Small pleural effusions are suggested. There is no pneumothorax. Cardiomegaly is noted IMPRESSION: 1. Diffuse lung disease, consistent with pulmonary edema versus pneumonia versus atelectasis. 2. Possible small pleural effusions. 3. Cardiomegaly. Reviewed, dictated and finalized at location L. TRICAL APPRENTICE IMPRESSION: 1. Diffuse lung disease, consistent with pulmonary edema versus pneumonia versu s atelectasis. 2. Possible small pleural effusions. 3. Cardiomegaly.
--- NOTE | ~2023-07-04 | XR_ITS ---
EXAMINATION: XR chest 2V DATE: 07/06/2023 18:18 INDICATION: Shortness of breath, abnormal chest radiograph TECHNIQUE: Frontal and lateral views of the chest are obtained COMPARISON: 07/04/2021 FINDINGS: Cardiomegaly is noted. There are are diffuse interstitial and airspace opacities which demo nstrate interval improvement, particularly in the upper lung zones. There appears to be a small left pleural effusion. The right hemidiaphragm is elevated. There is no pneumothorax. IMPRESSION: 1. Diffuse lung disease with interval improvement, consistent with pneumonia versus pulmonary edema. 2. Cardiomegaly. 3. Probable small left pleural effusion. Reviewed, dictated and finalized at location F. ATRIC IMMUNOLOGIST IMPRESSION: 1. Diffuse lung disease with interval improvement, consistent with pneumonia ve rsus pulmonary edema. 2. Cardiomegaly. 3. Probable small left pleural effusion.
--- NOTE | 2023-07-04 07:14 | ECG_ITS ---
Measurements Intervals [place] Rate: 112 P: 65 CA: 177 QRS: 17 QRSD: 142 T: 160 QT: 363 QTc: 496 Interpretive Statements SINUS TACHYCARDIA POSSIBLE LEFT ATRIAL ENLARGEMENT [-0.1mV P-WAVE IN V1/V2] INTRAVENTRICULAR CONDUCTION DELAY [130+ ms QRS DURATION] COMPARED TO ECG 05/27/2023 07:59:02 NO SIGNIFICANT CHANGES Electronically Signed On 07-04-2023 12:38:05 [employer]ODUCTION [employer] LEADER by Sepideh Valladares M.D.
--- NOTE | 2023-07-04 07:27 | ED.GENADULT ---
HPI - General Adult General Chief complaint: Shortness of Breath/Dyspnea Stated complaint: resp distress Time Seen by Provider: 07/04/23 07:14 History of Present Illness HPI narrative: 52-year-old female history of CVA, chronic kidney disease, just congestive heart failure, hypertension, high cholesterol, intellectual disability presented emergency department for evaluation of worsening shortness of breath. This morning when the facility went to check on her she was found to be short of breath and patient was saturating in the 80s on room air. EMS was called and patient was placed on oxygen and treated with a DuoNeb. At initial examination by EMS patient did have crackles in all daniels. Patient reports she did feel improved with the breathing treatment. Upon arrival to the emergency department patient's heart rate was in the 100-teens and patient was alert and appropriate. Related Data Home Medications Medication Instructions Recorded Confirmed acetaminophen 325 mg tablet 650 mg PO Q6H PRN Pain (Scale 08/26/21 07/04/23 (Tylenol) Score 1-3) aspirin 81 mg chewable tablet 81 mg PO DAILY 08/26/21 07/04/23 (Aspirin Childrens) atorvastatin 80 mg tablet (Lipitor) 80 mg PO HS 08/26/21 07/04/23 benzonatate 200 mg capsule 200 mg PO Q8H PRN Cough 08/26/21 07/04/23 calcium carb-vit D3-minerals 600 2 tablet PO DAILY 08/26/21 07/04/23 mg calcium-400 unit tablet ergocalciferol (vitamin D2) 1,250 50,000 unit PO WEEKLY 08/26/21 07/04/23 mcg (50,000 unit) capsule (Vitamin D2) ferrous sulfate 325 mg (65 mg 325 mg PO BID 08/26/21 07/04/23 iron) tablet isosorbide mononitrate 30 mg 30 mg PO DAILY 08/26/21 07/04/23 tablet,extended release 24 hr phenytoin 100 mg/4 mL oral 200 mg PO BID 08/26/21 07/04/23 suspension escitalopram oxalate 10 mg tablet 1 tablet PO DAILY 10/30/21 07/04/23 phenytoin 100 mg/4 mL oral 200 mg PO QPM 10/30/21 07/04/23 suspension spironolactone 25 mg tablet 1 tablet PO DAILY 10/30/21 07/04/23 nystatin 100,000 unit/gram topical 1 applic topical PRN PRN abdominal 05/27/23 07/04/23 powder folds and groin sacubitril 49 mg-valsartan 51 mg 1 tablet PO BID 05/27/23 07/04/23 tablet (Entresto) Allergies Allergy/AdvReac Type Severity Reaction Status Date / Time No Known Allergies Allergy Verified 11/22/21 16:08 Review of Systems Review of Systems: All systems reviewed & are unremarkable except as noted in HPI and below PMFSH Past Medical History Medical History (Updated 07/04/23 @ 15:12 by Julita Rosas PA-C) Asthma-COPD overlap syndrome Cerebrovascular accident Chronic kidney disease Chronic subdural hematoma Congestive heart failure Echocardiogram in Apr showed left ventricular dilation with severe global systolic dysfunction with EF of 30%, diastolic noncompliance, left atrial enlarged, no obvious valve dysfunction however somewhat limited due to technically difficult exam due to body habitus. Gastroesophageal reflux disease Hyperlipidemia Hypertension Intellectual disability Iron deficiency anemia Morbid obesity Seizure Vitamin D deficiency Surgical History Surgical History History of right above knee amputation Family History Family History Father Congestive heart failure Hypertension Mother Congestive heart failure Hypertension Social History Social History Social History: Surrogate decision maker: Laxmi Janes, aunt. Code status: Full code. Smoking packs per day: 1 Smoking cigarettes per day: 20.0 Years smoked: 20 Smoking pack-years: 20.00 Smoking status: Unknown if ever smoked Tobacco type: cigarettes Second hand tobacco smoke exposure: No Smoking end date: 02/06/23 Alcohol intake: never Substance use: never Substance use type: does not use Do You Feel Saf
[2023-07-04] MEDS: ALBUTEROL SULFATE NEB 2.5 MG/3 ML INH 10 MG INHALATION (07:28)
[2023-07-04] MEDS: IPRATROPIUM BR 0.02% INH SOLN 0.5 MG/2.5 ML VIAL 1 MG INHALATION (07:29)
[2023-07-04] MEDS: methylPREDNISolone SOD SUCC 125 MG VIAL IV PUSH (07:39)
[2023-07-04 07:47] LABS: Basophils Absolute Auto 0.1 K/mm3 (0.0-0.1); Basophils Percent Auto 0.6 % (0.2-1.2); Eosinophils Absolute Auto 0.2 K/mm3 (0-0.3); Hematocrit 32.6 % (37.0-47.0); Hemoglobin 9.6 g/dL (12.0-15.0); Immature Granulocyte Absolute 0.17 K/mm3 (0.00-0.031); Immature Granulocyte Percent A 1.7 % (0-0.5); Lymphocytes Absolute Auto 1.55 K/mm3 (0.9-3.2); Lymphocytes Percent Auto 15.3 % (18.3-44.2); Mean Corpuscular HGB Conc 29.4 g/dl (32-36); Mean Corpuscular Hemoglobin 27.3 pg (26-34); Mean Corpuscular Volume 92.6 fl (80-100); Mean Platelet Volume 11.5 fl (7.4-10.4); Monocytes Absolute Auto 0.5 K/mm3 (0.1-0.6); Monocytes Percent Auto 4.7 % (2.6-8.5); Neutrophils Absolute Auto 7.7 K/mm3 (1.3-6.7); Neutrophils Percent Auto 75.7 % (45.5-73.1); Platelet Count Result 246 k/mm3 (150-375); Red Blood Count 3.52 M/mm3 (4.2-5.4); Red Cell Distribution Width 15.6 % (11.5-14.5); White Blood Count 10.2 K/mm3 (4.5-10.0)
[2023-07-04 07:57] LABS: Hypochromasia 1+ (NORMAL); Platelet Estimate Adequate (Adequate); Schistocytes None Seen (NORMAL)
[2023-07-04 07:59] LABS: Alveolar/Arterial O2 Gradient 108.4 mmHg; Base Excess ABG -3.3 mEq/l (+/-2.0); Fractional Inspired Oxygen 30 %; HCO3 ABG 21.9 mEq/l (22.0-26.0); Oxygen Content ABG 12.8 %vol (16.0-22.0); Oxygen Saturation ABG 89.8 % (95.0-100.0); PCO2 ABG 39.5 mmHg (35.0-45.0); PO2 ABG 59.1 mmHg (80.0-100.0); PO2 FiO2 Ratio Arterial Blood 1.97 %; Total Hemoglobin 10.5 g/dL (12.0-18.0); pH ABG 7.361 (7.350-7.450)
[2023-07-04 08:01] LABS: Alanine Aminotransferase 26 U/L (6-35); Albumin Level 3.9 g/dL (3.5-5.1); Alkaline Phosphatase 139 U/L (38-126); Anion Gap 12 mmol/L (8-16); Aspartate Amino Transferase 26 U/L (14-36); Bilirubin,Total 0.4 mg/dL (0.2-1.3); Blood Urea Nitrogen 42 mg/dL (7-17); Calcium 8.9 mg/dL (8.4-10.2); Carbon Dioxide 20 mmol/L (22-30); Chloride 114 mmol/L (98-107); Estimated CRCL calculation 29 ml/min; Estimated Glomerular Filt Rate 21; Glucose 160 mg/dL (65-110); Potassium 4.2 mmol/L (3.4-5.0); Sodium 146 mmol/L (137-145)
[2023-07-04 08:02] LABS: Oxyhemoglobin 86.6 % THb (90.0-100.0)
[2023-07-04 08:03] LABS: Device NON-INVASIVE VENT; Modified Allen's Test Pass; Site Drawn LEFT RADIAL
[2023-07-04 08:04] LABS: Non-Invasive Expiratory Pressure 8 CMH2O; Non-Invasive Inspiratory Pressure 14 CMH2O; Non-Invasive Vent Rate 18 /MIN
[2023-07-04 08:10] LABS: NT Pro B Type Natriuretic Pept 15000 pg/mL (19.9-100)
[2023-07-04 08:50] LABS: Influenza A QL RT-PCR Negative (Negative); Influenza B QL RT-PCR Negative (Negative); RSV RNA, RT-PCR Negative (Negative); SARS-CoV-2 RNA PCR Negative (Negative)
[2023-07-04] MEDS: FUROSEMIDE INJ 40 MG/4 ML VIAL IV PUSH ×2 (08:57→16:20)
[2023-07-04 10:38] LABS: Procalcitonin 0.1 ng/mL
[2023-07-04] MEDS: PERFLUTREN LIPID MICROSPHERES 1.5 ML VIAL DILUTED TO 10 ML TOTAL VOLUME IV PUSH (12:00)
--- NOTE | 2023-07-04 12:41 | IVDEFINITY ---
Prior to administration of IV Definity the patient was educated on the risks and benefits of the imaging enhancing agent including potential adverse side effects. The patient verbalized understanding. Allergies were verified. No exclusion criteria were identified and at least one of the following inclusion criteria were met: 1) physician request, 2) patient technically difficult to image (per the [place] [employer] guidelines of two or more segments not discernable within the apical view), or 3) questionable left ventricular function. ?
[2023-07-04] MEDS: METOPROLOL TARTRATE INJ 5 MG/5 ML VIAL IV PUSH (14:58)
--- NOTE | 2023-07-04 15:05 | PM.IMHP ---
H&P: HPI History of Present Illness Date/Time: 07/04/23 14:00 Chief Complaint: Shortness of breath and respiratory distress. Narrative: This is a 52-year-old female with history of asthma-COPD overlap, chronic respiratory failure morbid obesity, heart failure with reduced ejection fraction, stroke, chronic subdural hematoma, hypertension, hyperlipidemia, seizures, intellectual disability, chronic kidney disease, and anemia who presented to the emergency department via EMS from [facility] for evaluation shortness of breath and respiratory distress. She is currently on BiPAP and some of the following history is supplemented via a review of her electronic medical records. She was found this morning in respiratory distress by staff at her facility. SpO2 was reportedly in the 80s and she was placed on oxygen and received a DuoNeb with perhaps some improvement. She was started on BiPAP due to work of breathing upon arrival to the emergency department. Her blood pressures have been markedly elevated since arrival, as high as 212/120 and do looks like she does have a history of [id number] hypertension and I presume she did not get her medications yet this morning. Workup in the ED was significant for a stable hemoglobin, improved creatinine from baseline, sodium 146, chloride 114, proBNP 00591, procalcitonin 0.1, negative respiratory panel, and chest x-ray showing diffuse lung disease consistent with pulmonary edema versus pneumonia. She received IV furosemide 40 mg, and a DuoNeb, and Solu-Medrol and she is being admitted in this setting for further treatment. At the time my evaluation she is anxious on the BiPAP in is requesting something to help her relax. She has occasional sensations of racing heart but no chest or pleuritic pain. Her work of breathing is better on the BiPAP. She denies fever, chills, and sweats. No nausea, vomiting, or diarrhea. No syncope or near syncope. Review of Systems Review of Systems: Twelve systems were reviewed and are negative except for as per HPI. [facility] Past Medical History Medical History (Updated 07/04/23 @ 15:12 by Julita Rosas PA-C) Asthma-COPD overlap syndrome Cerebrovascular accident Chronic kidney disease Chronic subdural hematoma Congestive heart failure Echocardiogram in Apr showed left ventricular dilation with severe global systolic dysfunction with EF of 30%, diastolic noncompliance, left atrial enlarged, no obvious valve dysfunction however somewhat limited due to technically difficult exam due to body habitus. Gastroesophageal reflux disease Hyperlipidemia Hypertension Intellectual disability Iron deficiency anemia Morbid obesity Seizure Vitamin D deficiency Surgical History Surgical History History of right above knee amputation Family History Family History Father Congestive heart failure Hypertension Mother Congestive heart failure Hypertension Social History Social History Social History: Surrogate decision maker: Laxmi Marrero, aunt. Code status: Full code. Smoking packs per day: 1 Smoking cigarettes per day: 20.0 Years smoked: 20 Smoking pack-years: 20.00 Smoking status: Former smoker Tobacco type: cigarettes Second hand tobacco smoke exposure: No Smoking end date: 02/06/23 Alcohol intake: never Substance use: never Substance use type: does not use Do You Feel Safe in your Home?: Yes Lack of Transportation: No Lack of Food: Never True Current Housing: I Have Housing Concerned About Future Housing: No Difficulty Paying Gas/Electric Bills: No Difficulty Paying for Meds: No Currently Unemployed: No Education: High School Diploma/GED Difficulty w/ Childcare or Family Care: No Additional living arrangements comments:
--- NOTE | 2023-07-04 15:09 | PC.NURSE ---
ERP notified of elevated BPs med given
--- NOTE | 2023-07-04 15:49 | PC.NURSE ---
when in room to change freeman catheter current freeman was dislodged with inflated balloon intact. No bleeding or dried blood noted, no trauma to urinary meatus noted. New freeman cath placed using sterile technique without difficulties, pt tolerated procedure well.
[2023-07-04] MEDS: cloNIDine HCL 0.1 MG TABLET 0.2 MG PO (15:56)
[2023-07-04] MEDS: hydrALAZINE HCL 25 MG TABLET PO ×2 (15:57→22:47)
[2023-07-04] MEDS: carvediloL 25 MG TABLET PO ×2 (15:57→22:47)
--- NOTE | 2023-07-04 16:04 | PC.NURSE ---
arrived with dressing to RLE for what appears to be small excoriated area
--- NOTE | 2023-07-04 17:49 | ADMGEN ---
This patient, Mirela Preston, was admitted to IMU Room 206-01. Patient/family oriented to hospital policies and general routines including ID bracelet, bed and alarms, visiting hours, pain management, procedures, bathroom and other care routines, personal items, smoking policy, room service/diet, and visiting hours. Information on how to activate the Rapid Response Team has been discussed. Patient/Family are encouraged to report perceived risks to care and to ask questions if they do not understand what they are told or what they should do.
[2023-07-04] MEDS: FUROSEMIDE INJ 40 MG/4 ML VIAL 60 MG IV PUSH (18:44)
[2023-07-04] MEDS: LORazepam INJ (*CRX) 2 MG/ML VIAL 0.5 MG IV PUSH (20:13)
[2023-07-04 21:19] LABS: Anion Gap 12 mmol/L (8-16); Blood Urea Nitrogen 50 mg/dL (7-17); Calcium 9.3 mg/dL (8.4-10.2); Carbon Dioxide 20 mmol/L (22-30); Chloride 112 mmol/L (98-107); Estimated CRCL calculation 27 ml/min; Estimated Glomerular Filt Rate 19; Glucose 122 mg/dL (65-110); Potassium 4.2 mmol/L (3.4-5.0); Sodium 144 mmol/L (137-145)
[2023-07-04 22:03] LABS: Alveolar/Arterial O2 Gradient 106.6 mmHg; Base Excess ABG -4.8 mEq/l (+/-2.0); Carboxyhemoglobin 0.3 % THb (0-2.0); Fractional Inspired Oxygen 30 %; HCO3 ABG 19.9 mEq/l (22.0-26.0); Methemoglobin ABG 0.4 %THb (0-1.5); Oxygen Saturation ABG 92.6 % (95.0-100.0); Oxyhemoglobin 89.1 % THb (90.0-100.0); PCO2 ABG 35.3 mmHg (35.0-45.0); PO2 ABG 65.8 mmHg (80.0-100.0); PO2 FiO2 Ratio Arterial Blood 2.19 %; Reduced Hemoglobin 10.2 %THb (0-5.0); Total Hemoglobin 10.3 g/dL (12.0-18.0); pH ABG 7.368 (7.350-7.450)
[2023-07-04 22:18] LABS: Device BIPAP; Modified Allen's Test Pass; Site Drawn RIGHT RADIAL
[2023-07-04 22:19] LABS: Expiratory Pressure 7 cmH2O; Inspiratory Pressure 14 cmH2O
[2023-07-04] MEDS: cloNIDine HCL 0.1 MG TABLET 0.3 MG PO (22:47)
[2023-07-04] MEDS: AZITHROMYCIN 500 MG/NS 250 ML 500 MG/250 ML BAG 250 MG IVPB (22:47)
[2023-07-04] MEDS: SACUBITRIL/VALSARTAN 49-51 MG TABLET 1 TABLET PO (22:47)
[2023-07-04] MEDS: ATORVASTATIN 40 MG TABLET 80 MG PO (22:47)
[2023-07-04 22:50] LABS: D Dimer 1.51 ug/mL (<0.48)
[2023-07-05] VITALS (31 sets, daily range): BP systolic 128–175; BP diastolic 65–116; PULSE 80–107; RESP 19–35; TEMP 36.2–36.5; O2SAT 95–100
[2023-07-05] MEDS: IPRATROPIUM 0.5 MG/ALBUTEROL SULFATE 2.5 MG AMPUL.NEB 3 ML INHALATION ×4 (01:41→20:53)
[2023-07-05 05:23] LABS: Basophils Absolute Auto 0.1 K/mm3 (0.0-0.1); Basophils Percent Auto 0.5 % (0.2-1.2); Eosinophils Absolute Auto 0.1 K/mm3 (0-0.3); Eosinophils Percent Auto 0.8 % (0-4.4); Hematocrit 28.5 % (37.0-47.0); Hemoglobin 8.6 g/dL (12.0-15.0); Immature Granulocyte Absolute 0.07 K/mm3 (0.00-0.031); Immature Granulocyte Percent A 0.7 % (0-0.5); Lymphocytes Absolute Auto 2.03 K/mm3 (0.9-3.2); Mean Corpuscular HGB Conc 30.2 g/dl (32-36); Mean Corpuscular Hemoglobin 27.9 pg (26-34); Mean Corpuscular Volume 92.5 fl (80-100); Mean Platelet Volume 11.4 fl (7.4-10.4); Monocytes Absolute Auto 0.9 K/mm3 (0.1-0.6); Monocytes Percent Auto 8.1 % (2.6-8.5); Neutrophils Absolute Auto 7.6 K/mm3 (1.3-6.7); Neutrophils Percent Auto 70.9 % (45.5-73.1); Platelet Count Result 186 k/mm3 (150-375); Red Blood Count 3.08 M/mm3 (4.2-5.4); Red Cell Distribution Width 15.6 % (11.5-14.5); White Blood Count 10.7 K/mm3 (4.5-10.0)
[2023-07-05] MEDS: cloNIDine HCL 0.1 MG TABLET 0.3 MG PO ×3 (05:39→21:02)
[2023-07-05 05:40] LABS: Anion Gap 7 mmol/L (8-16); Blood Urea Nitrogen 51 mg/dL (7-17); Carbon Dioxide 23 mmol/L (22-30); Chloride 113 mmol/L (98-107); Estimated CRCL calculation 25 ml/min; Estimated Glomerular Filt Rate 18; Glucose 115 mg/dL (65-110); Potassium 4.2 mmol/L (3.4-5.0); Sodium 143 mmol/L (137-145)
[2023-07-05] MEDS: FUROSEMIDE INJ 40 MG/4 ML VIAL IV PUSH ×2 (09:59→17:27)
[2023-07-05] MEDS: ASPIRIN 81 MG CHEWABLE TABLET PO (09:59)
[2023-07-05] MEDS: hydrALAZINE HCL 25 MG TABLET PO ×4 (10:00→20:01)
[2023-07-05] MEDS: ESCITALOPRAM OXALATE 10 MG TABLET PO (10:00)
[2023-07-05] MEDS: FERROUS SULFATE 325 MG TABLET DR PO ×2 (10:00→17:27)
[2023-07-05] MEDS: carvediloL 25 MG TABLET PO ×2 (10:00→20:00)
[2023-07-05] MEDS: ISOSORBIDE MONONITRATE 30 MG TAB.ER.24H PO (10:00)
[2023-07-05] MEDS: PANTOPRAZOLE 40 MG TABLET PO (10:01)
[2023-07-05] MEDS: SACUBITRIL/VALSARTAN 49-51 MG TABLET 1 TABLET PO ×2 (10:01→17:27)
[2023-07-05] MEDS: SPIRONOLACTONE 25 MG TABLET PO (10:01)
--- NOTE | 2023-07-05 14:50 | PM.IMPN ---
Progress Note: A&P Assessment and Plan (1) Acute on chronic systolic heart failure: Code(s): I50.23 - Acute on chronic systolic (congestive) heart failure Status: Acute (2) Chronic kidney disease: Code(s): N18.9 - Chronic kidney disease, unspecified Status: Acute (3) Morbid obesity: Code(s): E66.01 - Morbid (severe) obesity due to excess calories Status: Acute (4) Peripheral arterial disease: Code(s): I73.9 - Peripheral vascular disease, unspecified Status: Acute (5) CKD (chronic kidney disease) stage 3, GFR 30-59 ml/min: Qualifiers: Chronic kidney disease stage 3 subtype: stage 3a (GFR 45-59) Qualified Code(s): N18.31 - Chronic kidney disease, stage 3a Code(s): N18.30 - Chronic kidney disease, stage 3 unspecified Status: Acute (6) Acute exacerbation of chronic obstructive pulmonary disease: Code(s): J44.1 - Chronic obstructive pulmonary disease with (acute) exacerbation Status: Acute (7) Obstructive apnea: Code(s): G47.33 - Obstructive sleep apnea (adult) (pediatric) Status: Acute (8) Hypernatremia: Code(s): E87.0 - Hyperosmolality and hypernatremia Status: Acute (9) Electrolyte abnormality: Code(s): E87.8 - Other disorders of electrolyte and fluid balance, not elsewhere classified Status: Acute (10) Anemia: Qualifiers: Anemia type: due to chronic kidney disease Chronic kidney disease stage: stage 3 (moderate) Code(s): D64.9 - Anemia, unspecified Status: Chronic (11) Seizure: Code(s): R56.9 - Unspecified convulsions Status: Acute (12) Pulmonary edema: Code(s): J81.1 - Chronic pulmonary edema Status: Acute (13) Pneumonia: Code(s): J18.9 - Pneumonia, unspecified organism Status: Acute (14) BMI 50.0-59.9, adult: Code(s): Z68.43 - Body mass index [BMI] 50.0-59.9, adult Status: Acute (15) Asthma-COPD overlap syndrome: Code(s): J44.9 - Chronic obstructive pulmonary disease, unspecified Status: Acute (16) Acute and chronic respiratory failure: Code(s): J96.20 - Acute and chronic respiratory failure, unspecified whether with hypoxia or hypercapnia Status: Acute (17) Acid reflux: Code(s): K21.9 - Gastro-esophageal reflux disease without esophagitis Status: Acute Plan Admit patient to a medical unit under full inpatient status Pain has been weaned off of her BiPAP Oxygen via nasal cannula ordered to keep O2 sats more than 92% Solu-Medrol 125 mg IV x 1 dose given in the ER Solu-Medrol 60 Mg IV q8 hrs started on the floor to be tapered as per clinical response Patient may have possible pneumonia on chest x-ray hence started on IV Rocephin and azithromycin on admission Sputum cultures ordered Patient had a urinalysis done in the ER which points towards possible UTI Patient had a recent episode of UTI 5 weeks ago with the pretty resistant strain of E coli Patient started on IV meropenem renally adjusted at 1 mg q.12 hours keeping in view the sensitivities from the previous UTI which will cover for pneumonia as well DC IV Rocephin, continue IV azithromycin to cover for possible pneumonia Follow-up on urine and sputum cultures DuoNeb breathing treatments ordered as needed PT/OT/care coordination consults ordered DC planning once patient is medically stable and breathing is back to baseline ? Patient seen and examined at bedside during my morning rounds ? Collaborated with patient's nurse at the bedside in detail and addressed all concerns ? Labs, electrolytes, radiology, investigations and test results reviewed ? Consult/Nursing/Ancilliary notes on the chart reviewed and appreciated ? Spoke with patient/family at the bedside and answered all the questions that they had Repeat labs in a.m. Electrolyte replacement as per protocol. Patient will be monitored very closely on the floor. Further onur
[2023-07-05] MEDS: MEROPENEM 1 GM/NS 100 ML 1 GM/100 ML BAG IVPB (17:26)
[2023-07-05] MEDS: AZITHROMYCIN 500 MG/NS 250 ML 500 MG/250 ML BAG 250 MG IVPB (20:02)
[2023-07-05] MEDS: ATORVASTATIN 40 MG TABLET 80 MG PO (20:46)
[2023-07-05] MEDS: methylPREDNISolone SOD SUCC 125 MG VIAL 60 MG IV PUSH (21:04)
[2023-07-06] VITALS (23 sets, daily range): BP systolic 111–152; BP diastolic 57–86; PULSE 68–97; RESP 17–28; TEMP 35.8–36.4; O2SAT 94–100
[2023-07-06] MEDS: IPRATROPIUM 0.5 MG/ALBUTEROL SULFATE 2.5 MG AMPUL.NEB 3 ML INHALATION ×4 (01:49→20:48)
[2023-07-06] MEDS: MEROPENEM 1 GM/NS 100 ML 1 GM/100 ML BAG IVPB ×2 (03:31→16:32)
[2023-07-06] MEDS: cloNIDine HCL 0.1 MG TABLET 0.3 MG PO ×3 (05:26→21:34)
[2023-07-06] MEDS: methylPREDNISolone SOD SUCC 125 MG VIAL 60 MG IV PUSH ×2 (05:27→14:23)
[2023-07-06 05:33] LABS: Basophils Percent Auto 0.4 % (0.2-1.2); Eosinophils Absolute Auto 0.1 K/mm3 (0-0.3); Hematocrit 27.6 % (37.0-47.0); Hemoglobin 8.1 g/dL (12.0-15.0); Immature Granulocyte Absolute 0.04 K/mm3 (0.00-0.031); Immature Granulocyte Percent A 0.5 % (0-0.5); Lymphocytes Absolute Auto 1.55 K/mm3 (0.9-3.2); Lymphocytes Percent Auto 19.7 % (18.3-44.2); Mean Corpuscular HGB Conc 29.3 g/dl (32-36); Mean Corpuscular Hemoglobin 27.6 pg (26-34); Mean Corpuscular Volume 94.2 fl (80-100); Mean Platelet Volume 11.5 fl (7.4-10.4); Monocytes Absolute Auto 0.4 K/mm3 (0.1-0.6); Monocytes Percent Auto 5.6 % (2.6-8.5); Neutrophils Absolute Auto 5.7 K/mm3 (1.3-6.7); Neutrophils Percent Auto 72.8 % (45.5-73.1); Platelet Count Result 174 k/mm3 (150-375); Red Blood Count 2.93 M/mm3 (4.2-5.4); Red Cell Distribution Width 15.4 % (11.5-14.5); White Blood Count 7.9 K/mm3 (4.5-10.0)
[2023-07-06 05:47] LABS: Appearance Urine Clear (Clear); Bacteria Urine None Seen /hpf; Bilirubin Urine Negative (Negative); Blood Urine Negative (Negative); Color Urine Yellow (Yellow); Glucose Urine UA Negative (Negative); Ketones Urine Negative (Negative); Leukocyte Esterase Ur Trace LEU/UL (Negative); Need Manual Microscopic Reviewed; Nitrate Urine Negative (Negative); Protein Urine 2+ mg/dL (Negative); RBC Urine 0-2 /hpf (0-2); Specific Grav Ur 1.012 (1.001-1.035); Squamous Epithelial Cell Urine Occasional /hpf (Few); Urobilinogen Urine 0.2 mg/dL (<2.0)
[2023-07-06 05:54] LABS: Large Platelets Present; Platelet Estimate Adequate (Adequate)
[2023-07-06 05:55] LABS: Anisocytosis 1+ (NORMAL); Hypochromasia 1+ (NORMAL); Schistocytes None Seen (NORMAL)
[2023-07-06 05:56] LABS: Anion Gap 10 mmol/L (8-16); Blood Urea Nitrogen 55 mg/dL (7-17); Calcium 8.6 mg/dL (8.4-10.2); Carbon Dioxide 22 mmol/L (22-30); Chloride 107 mmol/L (98-107); Estimated CRCL calculation 25 ml/min; Estimated Glomerular Filt Rate 18; Glucose 125 mg/dL (65-110); Phosphorus 4.6 mg/dL (2.5-4.5); Potassium 4.3 mmol/L (3.4-5.0); Sodium 139 mmol/L (137-145)
[2023-07-06 05:58] LABS: Add Urine Microscopic? YES
[2023-07-06] MEDS: FERROUS SULFATE 325 MG TABLET DR PO ×2 (08:49→16:36)
[2023-07-06] MEDS: carvediloL 25 MG TABLET PO ×2 (08:49→20:19)
[2023-07-06] MEDS: ASPIRIN 81 MG CHEWABLE TABLET PO (08:49)
[2023-07-06] MEDS: SACUBITRIL/VALSARTAN 49-51 MG TABLET 1 TABLET PO ×2 (08:49→16:36)
[2023-07-06] MEDS: PANTOPRAZOLE 40 MG TABLET PO (08:50)
[2023-07-06] MEDS: SPIRONOLACTONE 25 MG TABLET PO (08:50)
[2023-07-06] MEDS: ISOSORBIDE MONONITRATE 30 MG TAB.ER.24H PO (08:50)
[2023-07-06] MEDS: ESCITALOPRAM OXALATE 10 MG TABLET PO (08:50)
[2023-07-06] MEDS: hydrALAZINE HCL 25 MG TABLET PO ×4 (08:50→20:19)
[2023-07-06] MEDS: FUROSEMIDE INJ 40 MG/4 ML VIAL IV PUSH ×2 (09:06→16:36)
--- NOTE | 2023-07-06 16:11 | PC.NURSE ---
This patient, Mirela Preston, was transferred to [[address] [place] [address] ] on 07/06/23 at 1611. Personal belongings sent with patient. Report given to [april Wright ]. Appropriate documentation sent with patient.
--- NOTE | 2023-07-06 16:15 | PC.NURSE ---
Received from U via bed. Pastor draining yellow urine.
--- NOTE | 2023-07-06 17:13 | PM.IMPN ---
Progress Note: A&P Assessment and Plan (1) Acute on chronic systolic heart failure: Code(s): I50.23 - Acute on chronic systolic (congestive) heart failure Status: Acute (2) Chronic kidney disease: Code(s): N18.9 - Chronic kidney disease, unspecified Status: Acute (3) Morbid obesity: Code(s): E66.01 - Morbid (severe) obesity due to excess calories Status: Acute (4) Peripheral arterial disease: Code(s): I73.9 - Peripheral vascular disease, unspecified Status: Acute (5) CKD (chronic kidney disease) stage 3, GFR 30-59 ml/min: Qualifiers: Chronic kidney disease stage 3 subtype: stage 3a (GFR 45-59) Qualified Code(s): N18.31 - Chronic kidney disease, stage 3a Code(s): N18.30 - Chronic kidney disease, stage 3 unspecified Status: Acute (6) Acute exacerbation of chronic obstructive pulmonary disease: Code(s): J44.1 - Chronic obstructive pulmonary disease with (acute) exacerbation Status: Acute (7) Obstructive apnea: Code(s): G47.33 - Obstructive sleep apnea (adult) (pediatric) Status: Acute (8) Hypernatremia: Code(s): E87.0 - Hyperosmolality and hypernatremia Status: Acute (9) Electrolyte abnormality: Code(s): E87.8 - Other disorders of electrolyte and fluid balance, not elsewhere classified Status: Acute (10) Anemia: Qualifiers: Anemia type: due to chronic kidney disease Chronic kidney disease stage: stage 3 (moderate) Code(s): D64.9 - Anemia, unspecified Status: Chronic (11) Seizure: Code(s): R56.9 - Unspecified convulsions Status: Acute (12) Pulmonary edema: Code(s): J81.1 - Chronic pulmonary edema Status: Acute (13) Pneumonia: Code(s): J18.9 - Pneumonia, unspecified organism Status: Acute (14) BMI 50.0-59.9, adult: Code(s): Z68.43 - Body mass index [BMI] 50.0-59.9, adult Status: Acute (15) Asthma-COPD overlap syndrome: Code(s): J44.9 - Chronic obstructive pulmonary disease, unspecified Status: Acute (16) Acute and chronic respiratory failure: Code(s): J96.20 - Acute and chronic respiratory failure, unspecified whether with hypoxia or hypercapnia Status: Acute (17) Acid reflux: Code(s): K21.9 - Gastro-esophageal reflux disease without esophagitis Status: Acute Plan Admit patient to a medical unit under full inpatient status Pain has been weaned off of her BiPAP Oxygen via nasal cannula ordered to keep O2 sats more than 92% Solu-Medrol 125 mg IV x 1 dose given in the ER Taper down IV Solu-Medrol to 60 Mg IV q12 hrs Patient may have possible pneumonia on chest x-ray hence started on IV Rocephin and azithromycin on admission Chest x-ray PA and lateral ordered in am Sputum cultures ordered Patient had a urinalysis done in the ER which points towards possible UTI Patient had a recent episode of UTI 5 weeks ago with the pretty resistant strain of E coli Patient started on IV meropenem renally adjusted at 1 mg q.12 hours keeping in view the sensitivities from the previous UTI which will cover for pneumonia as well DC IV Rocephin, continue IV azithromycin to cover for possible pneumonia Follow-up on urine and sputum cultures DuoNeb breathing treatments ordered as needed PT/OT/care coordination consults ordered DC planning once patient is medically stable and breathing is back to baseline ? Patient seen and examined at bedside during my morning rounds ? Collaborated with patient's nurse at the bedside in detail and addressed all concerns ? Labs, electrolytes, radiology, investigations and test results reviewed ? Consult/Nursing/Ancilliary notes on the chart reviewed and appreciated ? Spoke with patient/family at the bedside and answered all the questions that they had Repeat labs in a.m. Electrolyte replacement as per protocol. Patient will be monitored very closely on the floor. Further rec
[2023-07-06] MEDS: AZITHROMYCIN 500 MG/NS 250 ML 500 MG/250 ML BAG 250 MG IVPB (20:18)
[2023-07-06] MEDS: ATORVASTATIN 40 MG TABLET 80 MG PO (20:19)
[2023-07-07] VITALS (8 sets, daily range): BP systolic 126–136; BP diastolic 64–83; PULSE 76–84; RESP 18–20; TEMP 36–36.1; O2SAT 98–100
[2023-07-07] MEDS: IPRATROPIUM 0.5 MG/ALBUTEROL SULFATE 2.5 MG AMPUL.NEB 3 ML INHALATION ×3 (03:03→13:10)
[2023-07-07] MEDS: MEROPENEM 1 GM/NS 100 ML 1 GM/100 ML BAG IVPB (05:01)
[2023-07-07] MEDS: cloNIDine HCL 0.1 MG TABLET 0.3 MG PO ×2 (05:02→13:29)
[2023-07-07 07:02] LABS: Basophils Absolute Auto 0.1 K/mm3 (0.0-0.1); Basophils Percent Auto 0.6 % (0.2-1.2); Eosinophils Absolute Auto 0.3 K/mm3 (0-0.3); Eosinophils Percent Auto 4.1 % (0-4.4); Hematocrit 26.4 % (37.0-47.0); Hemoglobin 7.7 g/dL (12.0-15.0); Immature Granulocyte Absolute 0.05 K/mm3 (0.00-0.031); Immature Granulocyte Percent A 0.6 % (0-0.5); Lymphocytes Percent Auto 31.1 % (18.3-44.2); Mean Corpuscular HGB Conc 29.2 g/dl (32-36); Mean Corpuscular Hemoglobin 27.8 pg (26-34); Mean Corpuscular Volume 95.3 fl (80-100); Mean Platelet Volume 11.7 fl (7.4-10.4); Monocytes Absolute Auto 0.6 K/mm3 (0.1-0.6); Monocytes Percent Auto 7.7 % (2.6-8.5); Neutrophils Absolute Auto 4.7 K/mm3 (1.3-6.7); Neutrophils Percent Auto 55.9 % (45.5-73.1); Platelet Count Result 195 k/mm3 (150-375); Red Blood Count 2.77 M/mm3 (4.2-5.4); Red Cell Distribution Width 15.4 % (11.5-14.5); White Blood Count 8.4 K/mm3 (4.5-10.0)
[2023-07-07 07:18] LABS: Anion Gap 10 mmol/L (8-16); Blood Urea Nitrogen 62 mg/dL (7-17); Calcium 8.4 mg/dL (8.4-10.2); Carbon Dioxide 19 mmol/L (22-30); Chloride 107 mmol/L (98-107); Estimated CRCL calculation 27 ml/min; Estimated Glomerular Filt Rate 19; Glucose 97 mg/dL (65-110); Potassium 3.9 mmol/L (3.4-5.0); Sodium 136 mmol/L (137-145)
[2023-07-07 07:47] LABS: Anisocytosis 1+ (NORMAL); Hypochromasia 1+ (NORMAL); Platelet Estimate Adequate (Adequate); Schistocytes None Seen (NORMAL)
[2023-07-07] MEDS: methylPREDNISolone SOD SUCC 125 MG VIAL 60 MG IV PUSH (08:49)
[2023-07-07] MEDS: hydrALAZINE HCL 25 MG TABLET PO ×3 (08:50→17:32)
[2023-07-07] MEDS: SACUBITRIL/VALSARTAN 49-51 MG TABLET 1 TABLET PO ×2 (08:50→17:32)
[2023-07-07] MEDS: PANTOPRAZOLE 40 MG TABLET PO (08:50)
[2023-07-07] MEDS: ISOSORBIDE MONONITRATE 30 MG TAB.ER.24H PO (08:50)
[2023-07-07] MEDS: ASPIRIN 81 MG CHEWABLE TABLET PO (08:50)
[2023-07-07] MEDS: carvediloL 25 MG TABLET PO (08:50)
[2023-07-07] MEDS: FERROUS SULFATE 325 MG TABLET DR PO ×2 (08:50→17:33)
[2023-07-07] MEDS: ESCITALOPRAM OXALATE 10 MG TABLET PO (08:50)
[2023-07-07] MEDS: SPIRONOLACTONE 25 MG TABLET PO (08:50)
[2023-07-07] MEDS: FUROSEMIDE 40 MG TABLET PO ×2 (13:22→17:33)
--- NOTE | 2023-07-07 13:22 | PM.DS ---
DS: Admitting Diagnosis Discharge Date 07/07/2023: Admitting Diagnosis (1) Acute and chronic respiratory failure with hypoxia: ?Code(s): J96.21 - Acute and chronic respiratory failure with hypoxia ?Status:?Acute (2) Hypertensive urgency: ?Code(s): I16.0 - Hypertensive urgency ?Status:?Acute (3) Acute on chronic systolic heart failure: ?Code(s): I50.23 - Acute on chronic systolic (congestive) heart failure ?Status:?Acute (4) Asthma-COPD overlap syndrome: ?Code(s): J44.9 - Chronic obstructive pulmonary disease, unspecified ?Status:?Acute (5) Chronic kidney disease: ?Code(s): N18.9 - Chronic kidney disease, unspecified ?Status:?Acute (6) Anemia: ?Qualifiers: ?Anemia type:?due to chronic kidney disease??Chronic kidney disease stage:?stage 3 (moderate) ?Code(s): D64.9 - Anemia, unspecified ?Status:?Chronic DS: Discharge Diagnosis Discharge Diagnosis (1) Acute on chronic systolic heart failure: Code(s): I50.23 - Acute on chronic systolic (congestive) heart failure Status: Acute (2) Chronic kidney disease: Code(s): N18.9 - Chronic kidney disease, unspecified Status: Acute (3) Morbid obesity: Code(s): E66.01 - Morbid (severe) obesity due to excess calories Status: Acute (4) Peripheral arterial disease: Code(s): I73.9 - Peripheral vascular disease, unspecified Status: Acute (5) Venous insufficiency: Code(s): I87.2 - Venous insufficiency (chronic) (peripheral) Status: Acute (6) CKD (chronic kidney disease) stage 3, GFR 30-59 ml/min: Qualifiers: Chronic kidney disease stage 3 subtype: stage 3a (GFR 45-59) Qualified Code(s): N18.31 - Chronic kidney disease, stage 3a Code(s): N18.30 - Chronic kidney disease, stage 3 unspecified Status: Acute (7) Acute exacerbation of chronic obstructive pulmonary disease: Code(s): J44.1 - Chronic obstructive pulmonary disease with (acute) exacerbation Status: Acute (8) Obstructive apnea: Code(s): G47.33 - Obstructive sleep apnea (adult) (pediatric) Status: Acute (9) Hypernatremia: Code(s): E87.0 - Hyperosmolality and hypernatremia Status: Acute (10) Electrolyte abnormality: Code(s): E87.8 - Other disorders of electrolyte and fluid balance, not elsewhere classified Status: Acute (11) Stage 3a chronic kidney disease: Code(s): N18.31 - Chronic kidney disease, stage 3a Status: Chronic (12) Anemia: Qualifiers: Anemia type: due to chronic kidney disease Chronic kidney disease stage: stage 3 (moderate) Code(s): D64.9 - Anemia, unspecified Status: Chronic (13) Acute kidney injury superimposed on CKD: Code(s): N17.9 - Acute kidney failure, unspecified; N18.9 - Chronic kidney disease, unspecified Status: Acute (14) Seizure: Code(s): R56.9 - Unspecified convulsions Status: Acute (15) Asthma-COPD overlap syndrome: Code(s): J44.9 - Chronic obstructive pulmonary disease, unspecified Status: Acute (16) Acute exacerbation of congestive heart failure: Code(s): I50.9 - Heart failure, unspecified Status: Acute (17) Acid reflux: Code(s): K21.9 - Gastro-esophageal reflux disease without esophagitis Status: Acute DS: Summary Hospital Course Reason for hospitalization: Patient admitted with shortness of breath and respiratory distress Hospital Course: H&P: HPI History of Present Illness Date/Time: 07/04/23? 14:00 Chief Complaint: Shortness of breath and respiratory distress. Narrative: This is a 52-year-old female with history of asthma-COPD overlap, chronic respiratory failure morbid obesity, heart failure with reduced ejection fraction, stroke, chronic subdural hematoma, hypertension, hyperlipidemia, seizures, intellectual disability, chronic kidney disease, and anemia who presented
== END 2023-07-07 19:58 | DRG 133 ==
LOC: ANHED 09:50 → ANHIMU 19:54 → ANH3MEDSUR 07-06 14:45 → ANHIMU 07-06 15:03 → ANH3MEDSUR 07-06 16:07
PROVIDERS: Physician Assistant; Admitting Provider General Practice; Emergency Provider Emergency Medicine; PCP Hospitalist; Visit Provider Family Medicine
DX: J96.21 Acute and chronic respiratory failure with hypoxia (principal); J44.9 Chronic obstructive pulmonary disease, unspecified; E66.01 Morbid (severe) obesity due to excess calories; I13.0 Hypertensive heart and chronic kidney disease with heart failure and stage 1 through stage 4 chronic kidney disease, or unspecified chronic kidney disease; N18.4 Chronic kidney disease, stage 4 (severe); Z68.43 Body mass index [BMI] 50.0-59.9, adult; E78.5 Hyperlipidemia, unspecified; R56.9 Unspecified convulsions; F79 Unspecified intellectual disabilities; D63.1 Anemia in chronic kidney disease; J18.9 Pneumonia, unspecified organism; I50.23 Acute on chronic systolic (congestive) heart failure; Z20.822 Contact with and (suspected) exposure to COVID-19; Z86.73 Personal history of transient ischemic attack (TIA), and cerebral infarction without residual deficits; Z79.82 Long term (current) use of aspirin; K21.9 Gastro-esophageal reflux disease without esophagitis; E55.9 Vitamin D deficiency, unspecified; Z89.611 Acquired absence of right leg above knee; Z87.891 Personal history of nicotine dependence; I16.0 Hypertensive urgency; Z86.79 Personal history of other diseases of the circulatory system; G47.33 Obstructive sleep apnea (adult) (pediatric); J44.1 Chronic obstructive pulmonary disease with (acute) exacerbation; E87.0 Hyperosmolality and hypernatremia; I87.2 Venous insufficiency (chronic) (peripheral)
CPT/HCPCS: 36415; 36600; 71045; 71046; 80048; 80053; 81001; 82375; 82805; 83050; 83735; 83880; 84100; 84145; 84443; 85025; 85380; 87086; 87637; 93005; 94002; 94003; 94640; 96365; 96368; 96374; 96375; 99285; A9270; C8929; G0379; J0456; J0696; J1940; J2060; J2185; J2930; Q9957

== ENCOUNTER 2023-09-29 19:46 | Inpatient (IN) | payer BC, SELFPAY ==
[2023-09-29] VITALS (23 sets, daily range): BP systolic 113–174; BP diastolic 76–152; PULSE 87–141; RESP 20–40; TEMP 36.6–37; O2SAT 80–100; BMI 52.7
--- NOTE | ~2023-09-29 | XR_ITS ---
EXAMINATION: XR chest 1V portable DATE: 09/29/2023 20:33 INDICATION: Shortness of breath. Possible aspiration. TECHNIQUE: frontal view of the chest was obtained. COMPARISON: Chest radiograph dated 07/06/2023 FINDINGS: Increased interstitial pattern and superimposed groundglass opacities in the bilateral mid and lower lung zones most suggestive of mild to moderate pulmonary edema. No pneumothorax or right-sided pleura l effusion. The left hemidiaphragm is difficult to discern which could be due to to combination of pa tient body habitus and cardiomegaly but differential would include small pleural effusion or consolid ation either atelectasis or pneumonia. IMPRESSION: 1. Basilar predominant diffuse bilateral interstitial and groundglass opacities and favor mild to mod erate pulmonary edema over pneumonia or aspiration. 2. Indistinct left hemidiaphragm which could be artifact of body habitus and cardiomegaly with differ ential including small pleural effusion, aspiration or pneumonia. 3. Cardiomegaly. Reviewed, dictated and finalized at location A. IMPRESSION: 1. Basilar predominant diffuse bilateral interstitial and groundglass opacities and favor mild to moderate pulmonary edema over pneumonia or aspiration. 2. Indistinct left hemidiaphragm which could be artifact of body habitus and ca rdiomegaly with differential including small pleural effusion, aspiration or pn eumonia. 3. Cardiomegaly.
--- NOTE | ~2023-09-29 | US_ITS ---
Duplex Sonography of the left extremity: Indication: Edema Findings: Sagittal and transverse B-mode images as well as color-flow imaging were performed on the l eft femoral and popliteal veins. B-mode examination was done without and with compression in the tra nsverse plane. There is good visualization of the common femoral, proximal profunda femoral, superfi cial femoral, greater saphenous, and popliteal veins. Normal flow was seen on color-flow imaging. No rmal compressibility was demonstrated. Visualized calf veins are patent. Impression: No evidence of deep vein thrombosis involving the left lower extremity. Reviewed, dictated and finalized at location . Impression: No evidence of deep vein thrombosis involving the left lower extremity.
--- NOTE | ~2023-09-29 | US_ITS ---
US renal BI 10/01/2023 14:49 Procedure: Realtime transabdominal ultrasound of the kidneys and bladder. Indication: Elevated creatinine Comparison: Ultrasound dated 10/01/2023 Findings: Renal echotexture is normal bilaterally without hydronephrosis, contour deforming mass or r enal calculus. Increased renal cortical echotexture bilaterally, consistent with chronic medical christopher l disease. There is right renal cyst measuring 11 mm. The right kidney measures 8.1 cm and left kidne y measures 8.9 cm. There is a Pastor catheter in the bladder. Impression: 1: Bilateral renal atrophy with increased echotexture, consistent with chronic renal disease. 2: Right renal cyst measuring 11 mm. Reviewed, dictated and finalized at location A. Impression: 1: Bilateral renal atrophy with increased echotexture, consistent with chronic renal disease. 2: Right renal cyst measuring 11 mm.
--- NOTE | 2023-09-29 19:48 | ECG_ITS ---
SEE SCANNED COPY FOR CONFIRMED REPORT MTDD
--- NOTE | 2023-09-29 19:56 | PC.NURSE ---
nitro sl given at this time x 1
--- NOTE | 2023-09-29 20:01 | PC.NURSE ---
second dose of sl nitro given now
[2023-09-29] MEDS: NITROGLYCERIN SL 0.4 MG TABLET SUBLINGUAL (20:07)
[2023-09-29] MEDS: methylPREDNISolone SOD SUCC 125 MG VIAL IV PUSH (20:07)
[2023-09-29] MEDS: FUROSEMIDE INJ 40 MG/4 ML VIAL 80 MG (20:07)
[2023-09-29] MEDS: IPRATROPIUM BR 0.02% INH SOLN 0.5 MG/2.5 ML VIAL (20:10)
[2023-09-29 20:17] LABS: Alveolar/Arterial O2 Gradient 577.3 mmHg; Base Excess ABG -8.1 mEq/l (+/-2.0); Fractional Inspired Oxygen 100 %; HCO3 ABG 19.9 mEq/l (22.0-26.0); Oxygen Content ABG 15.7 %vol (16.0-22.0); Oxygen Saturation ABG 94.1 % (95.0-100.0); Oxyhemoglobin 93.9 % THb (90.0-100.0); PCO2 ABG 51.2 mmHg (35.0-45.0); PO2 ABG 84.5 mmHg (80.0-100.0); PO2 FiO2 Ratio Arterial Blood 0.85 %; Total Hemoglobin 11.8 g/dL (12.0-18.0)
[2023-09-29 20:19] LABS: pH ABG 7.207 (7.350-7.450)
[2023-09-29 20:20] LABS: Device BIPAP; Expiratory Pressure 7 cmH2O; Inspiratory Pressure 14 cmH2O; Modified Allen's Test Pass; Site Drawn RIGHT RADIAL
[2023-09-29] MEDS: ALBUTEROL SULFATE NEB 2.5 MG/3 ML INH 10 MG INHALATION (20:22)
--- NOTE | 2023-09-29 20:32 | ED.SOB ---
HPI - SOB/Dyspnea General Chief Complaint: Shortness of Breath/Dyspnea Stated Complaint: possible aspiration Time Seen by Provider: 09/29/23 20:17 Source: EMS Mode of arrival: EMS Limitations: clinical condition and other ( Baseline intellectual disability) History of Present Illness HPI Narrative: 52-year-old female with past medical history COPD and congestive heart failure presents in respiratory distress. It is reported that patient had a choking episode at dinner and possibly had other preceding choking episodes. She was able to stop choking and her breathing normalized but when she got back to her room she started having difficulty breathing. EMS established IV access and administered 2 g of magnesium. patient did decompensate in route and was being Assisted with ventilations via [id number] upon arrival to the emergency department. it is reported the patient is alert and oriented x2 at baseline due to intellectual disability. Related Data Home Medications Medication Instructions Recorded Confirmed acetaminophen 325 mg tablet 650 mg PO Q6H PRN Pain (Scale 08/26/21 09/30/23 (Tylenol) Score 1-3) aspirin 81 mg chewable tablet 81 mg PO DAILY 08/26/21 09/30/23 (Aspirin Childrens) atorvastatin 80 mg tablet (Lipitor) 80 mg PO HS 08/26/21 09/30/23 benzonatate 200 mg capsule 200 mg PO Q8H PRN Cough 08/26/21 09/30/23 calcium carb-vit D3-minerals 600 2 tablet PO DAILY 08/26/21 09/30/23 mg calcium-400 unit tablet ergocalciferol (vitamin D2) 1,250 50,000 unit PO WEEKLY 08/26/21 09/30/23 mcg (50,000 unit) capsule (Vitamin D2) ferrous sulfate 325 mg (65 mg 325 mg PO BID 08/26/21 09/30/23 iron) tablet isosorbide mononitrate 30 mg 30 mg PO DAILY 08/26/21 09/30/23 tablet,extended release 24 hr phenytoin 100 mg/4 mL oral 200 mg PO BID 08/26/21 09/30/23 suspension escitalopram oxalate 10 mg tablet 1 tablet PO DAILY 10/30/21 09/30/23 phenytoin 100 mg/4 mL oral 200 mg PO QPM 10/30/21 09/30/23 suspension spironolactone 25 mg tablet 1 tablet PO DAILY 10/30/21 09/30/23 nystatin 100,000 unit/gram topical 1 applic topical PRN PRN Rash to 05/27/23 09/30/23 powder abdominal folds and groin. sacubitril 49 mg-valsartan 51 mg 1 tablet PO BID 05/27/23 09/30/23 tablet (Entresto) B-complex with vitamin C 1 cap PO DAILY 09/30/23 09/30/23 carvedilol 25 mg tablet (Coreg) 25 mg PO BID 09/30/23 09/30/23 pantoprazole 40 mg tablet,delayed 40 mg PO DAILY 09/30/23 09/30/23 release Allergies Allergy/AdvReac Type Severity Reaction Status Date / Time No Known Allergies Allergy Verified 09/30/23 01:00 [facility] Past Medical History Medical History Angina pectoris Asthma-COPD overlap syndrome Cerebrovascular accident Chronic kidney disease Chronic subdural hematoma Congestive heart failure Echocardiogram in Apr showed left ventricular dilation with severe global systolic dysfunction with EF of 30%, diastolic noncompliance, left atrial enlarged, no obvious valve dysfunction however somewhat limited due to technically difficult exam due to body habitus. Gastroesophageal reflux disease Hyperlipidemia Hypertension Intellectual disability Iron deficiency anemia Major depressive disorder, recurrent, unspecified Morbid obesity Seizure Vitamin D deficiency Surgical History Surgical History History of right above knee amputation Family History Family History Father Congestive heart failure Hypertension Mother Congestive heart failure Hypertension Social History Social History (Updated 09/29/23 @ 21:20 by Lori Banegas MD) Social History: Surrogate decision maker: Laxmi Marrero, aunt. Code status: Full code per facility documentation Smoking packs per day: 1 Smoking cigarettes per day: 20.0 Years smoked: 20 Smoking pack-y
[2023-09-29 20:35] LABS: Basophils Absolute Auto 0.1 K/mm3 (0.0-0.1); Basophils Percent Auto 0.7 % (0.2-1.2); Eosinophils Absolute Auto 0.5 K/mm3 (0-0.3); Eosinophils Percent Auto 3.4 % (0-4.4); Hematocrit 35.7 % (37.0-47.0); Hemoglobin 10.9 g/dL (12.0-15.0); Immature Granulocyte Absolute 0.33 K/mm3 (0.00-0.031); Immature Granulocyte Percent A 2.4 % (0-0.5); Lymphocytes Percent Auto 17.5 % (18.3-44.2); Mean Corpuscular HGB Conc 30.5 g/dl (32-36); Mean Corpuscular Hemoglobin 27.6 pg (26-34); Mean Corpuscular Volume 90.4 fl (80-100); Mean Platelet Volume 10.9 fl (7.4-10.4); Monocytes Absolute Auto 0.6 K/mm3 (0.1-0.6); Monocytes Percent Auto 4.4 % (2.6-8.5); Neutrophils Absolute Auto 9.8 K/mm3 (1.3-6.7); Neutrophils Percent Auto 71.6 % (45.5-73.1); Platelet Count Result 232 k/mm3 (150-375); Red Blood Count 3.95 M/mm3 (4.2-5.4); White Blood Count 13.7 K/mm3 (4.5-10.0)
[2023-09-29 20:45] LABS: Alanine Aminotransferase 24 U/L (6-35); Albumin Level 4.4 g/dL (3.5-5.1); Alkaline Phosphatase 143 U/L (38-126); Anion Gap 12 mmol/L (4-12); Aspartate Amino Transferase 25 U/L (14-36); Bilirubin,Total 0.5 mg/dL (0.2-1.3); Blood Urea Nitrogen 57 mg/dL (7-17); Calcium 8.7 mg/dL (8.4-10.2); Carbon Dioxide 18 mmol/L (22-30); Chloride 109 mmol/L (98-107); Estimated Glomerular Filt Rate 16; Glucose 248 mg/dL (65-110); Potassium 5.6 mmol/L (3.4-5.0); Sodium 139 mmol/L (137-145)
[2023-09-29 20:47] LABS: Partial Thromboplastin Time 33.3 Seconds (22.3-36.8)
[2023-09-29 20:58] LABS: Troponin I 0.036 ng/mL (0.000-0.034)
[2023-09-29 21:08] LABS: Appearance Urine Clear (Clear); Bacteria Urine None Seen /hpf; Bilirubin Urine Negative (Negative); Blood Urine Negative (Negative); Color Urine Yellow (Yellow); Glucose Urine UA Negative (Negative); Ketones Urine Negative (Negative); Leukocyte Esterase Ur Negative LEU/UL (Negative); Need Manual Microscopic Reviewed; Nitrate Urine Negative (Negative); Non Pathogenic Casts 0-2; Protein Urine 2+ mg/dL (Negative); RBC Urine 0-2 /hpf (0-2); Squamous Epithelial Cell Urine Occasional /hpf (Few); Urobilinogen Urine 0.2 mg/dL (<2.0); WBC Urine 0-5 /hpf (0-3)
[2023-09-29 21:09] LABS: Add Urine Microscopic? YES
--- NOTE | 2023-09-29 21:34 | PC.NURSE ---
Pt received 324mg asa and 2g mag en route via ems
[2023-09-29] MEDS: SODIUM BICARBONATE 8.4% 50 MEQ/50 ML SYRINGE IV PUSH (22:04)
[2023-09-29] MEDS: INSULIN HUMAN REGULAR (*BKC) 100 UNITS/ML IV PUSH (22:04)
[2023-09-29] MEDS: DEXTROSE 50% 25 GM/50 ML SYRINGE IV PUSH (22:04)
[2023-09-29 22:16] LABS: Lactic Acid Reflex 1.1 mmol/L (0.7-2.0)
[2023-09-29] MEDS: CALCIUM GLUC 1,000 MG/NS 50 ML 1,000 MG/50 ML BAG 100 MG IVPB (22:28)
[2023-09-29 23:00] LABS: Troponin I 0.656 ng/mL (0.000-0.034)
[2023-09-29 23:05] LABS: Influenza A QL RT-PCR Negative (Negative); Influenza B QL RT-PCR Negative (Negative); RSV RNA, RT-PCR Negative (Negative); SARS-CoV-2 RNA PCR Negative (Negative)
[2023-09-29 23:39] LABS: MRSA (PCR) NOT DETECTED (NOT DETECTE)
[2023-09-29] MEDS: AZITHROMYCIN 500 MG/NS 250 ML 500 MG/250 ML BAG 250 MG IVPB (23:54)
[2023-09-29] MEDS: VANCOMYCIN 1,250 MG/NS 250 ML 1,250 MG/250 ML BAG 166.67 MG IVPB (23:55)
[2023-09-30] VITALS (35 sets, daily range): BP systolic 101–154; BP diastolic 57–106; PULSE 79–115; RESP 20–32; TEMP 35.9–36.9; O2SAT 93–100
[2023-09-30] MEDS: VANCOMYCIN 1,250 MG/NS 250 ML 1,250 MG/250 ML BAG 166.67 MG IVPB (00:06)
--- NOTE | 2023-09-30 00:56 | ADMGEN ---
This patient, Mirela Preston, was admitted to IMU Room 205-02 on 09/29/23 at 2321. Patient/family oriented to hospital policies and general routines including ID bracelet, bed and alarms, visiting hours, pain management, procedures, bathroom and other care routines, personal items, smoking policy, room service/diet, and visiting hours. Pt unable to answer H&P questions at this time. H&P obtained from previous admission and shelter papers. Information on how to activate the Rapid Response Team has been discussed. Patient/Family are encouraged to report perceived risks to care and to ask questions if they do not understand what they are told or what they should do.
[2023-09-30] MEDS: ALBUTEROL SULFATE NEB 2.5 MG/3 ML INH INHALATION ×6 (02:41→19:50)
--- NOTE | 2023-09-30 03:00 | PM.IMHP ---
H&P: HPI History of Present Illness Date/Time: 09/30/23 03:00 Chief Complaint: Respiratory distress Narrative: Source of information comes mainly from ER records and past medical records. The patient has intellectual disability and is on BiPAP. She only nods yes or no to questions and communication is limited. 52-year-old female with a past medical history of intellectual disability, morbid obesity, obstructive sleep apnea, systolic heart failure with EF of 20 %, asthma/COPD overlap, chronic hypoxic respiratory failure, CVA, chronic subdural hematoma, essential hypertension, seizures and chronic kidney disease stage IV who presented to the ER via EMS from local detention facility due to respiratory distress. The patient had had an episode of what seemed like emesis a couple of days ago that was briefly followed by respiratory distress at then resolved. Then today she had another episode of emesis while eating dinner which the patient was able to clear on her own. However when the patient got back to her room she developed respiratory distress and staff suction her at the facility but the patient had more significant respiratory distress with respiratory rate in the 40s to 50s. She had oxygen saturations of 70% on her baseline 5 L home O2. She was receiving bag-valve mask respirations on arrival to the hospital but respiratory status improved after being placed on BiPAP. Mental status had improved enroute to the hospital. EMS administered 2 g of magnesium. In the ER bedside ultrasound was reportedly performed which demonstrated Rosanna B lines. The patient received 80 mg of IV Lasix, 1 dose of Rocephin azithromycin and vancomycin. Patient was also noted to be significantly hypertensive on presentation. Her blood pressures improved after sublingual nitroglycerin as did her respiratory status. The patient's initial troponin was mildly elevated. The patient also received a continuous albuterol treatment, DuoNeb treatment and IV Solu-Medrol. Review of Systems Review of Systems: ROS unobtainable: Yes unobtainable due to medical condition (Due to BiPAP and difficulty with communication because of intellectual disa) [facility] Past Medical History Medical History (Updated 09/30/23 @ 07:00 by Helen Gaviria DO) Angina pectoris Asthma-COPD overlap syndrome Cerebrovascular accident Chronic kidney disease Chronic subdural hematoma Congestive heart failure Echocardiogram in Apr showed left ventricular dilation with severe global systolic dysfunction with EF of 30%, diastolic noncompliance, left atrial enlarged, no obvious valve dysfunction however somewhat limited due to technically difficult exam due to body habitus. Gastroesophageal reflux disease Hyperlipidemia Hypertension Intellectual disability Iron deficiency anemia Major depressive disorder, recurrent, unspecified Morbid obesity Seizure Vitamin D deficiency Surgical History Surgical History History of right above knee amputation Family History Family History Father Congestive heart failure Hypertension Mother Congestive heart failure Hypertension Social History Social History (Updated 09/29/23 @ 21:20 by Lori Banegas MD) Social History: Surrogate decision maker: Laxmi Marrero, aunt. Code status: Full code per facility documentation Smoking packs per day: 1 Smoking cigarettes per day: 20.0 Years smoked: 20 Smoking pack-years: 20.00 Smoking status: Former smoker Tobacco type: cigarettes Second hand tobacco smoke exposure: No Smoking end date: 02/06/23 Alcohol intake: never Substance use: never Substance use type: does not use Do You Feel Safe in your Home?: Yes Lack of Transportation: No Lack of Food: Never True Current Housing: I Have Housing Concerned About Future Housing: No Difficulty Paying Gas/Summer
[2023-09-30 06:16] LABS: Alveolar/Arterial O2 Gradient 216.1 mmHg; Base Excess ABG -4.9 mEq/l (+/-2.0); Carboxyhemoglobin 0.4 % THb (0-2.0); Fractional Inspired Oxygen 50 %; Methemoglobin ABG 0.1 %THb (0-1.5); Oxygen Saturation ABG 96.5 % (95.0-100.0); Oxyhemoglobin 96.3 % THb (90.0-100.0); PCO2 ABG 42.1 mmHg (35.0-45.0); PO2 FiO2 Ratio Arterial Blood 1.86 %; Reduced Hemoglobin 3.2 %THb (0-5.0); pH ABG 7.315 (7.350-7.450)
[2023-09-30 06:18] LABS: Device BIPAP; Expiratory Pressure 7 cmH2O; Inspiratory Pressure 14 cmH2O; Modified Allen's Test Pass; Site Drawn LEFT RADIAL
--- NOTE | 2023-09-30 06:22 | ECG_ITS ---
SEE SCANNED COPY FOR CONFIRMED REPORT MTDD
[2023-09-30] MEDS: HEPARIN SODIUM 5,000 UNITS/ML VIAL 4000 UNITS IV PUSH (06:59)
[2023-09-30] MEDS: HEPARIN SOD/D5W 100 UNITS/ML 25,000 UNITS/250 ML BAG 10 UNITS IV CONT (07:00)
[2023-09-30 07:02] LABS: Basophils Absolute Auto 0.1 K/mm3 (0.0-0.1); Basophils Percent Auto 0.2 % (0.2-1.2); Eosinophils Percent Auto 0.2 % (0-4.4); Hematocrit 34.2 % (37.0-47.0); Hemoglobin 10.1 g/dL (12.0-15.0); Immature Granulocyte Absolute 0.23 K/mm3 (0.00-0.031); Immature Granulocyte Percent A 0.9 % (0-0.5); Lymphocytes Absolute Auto 1.38 K/mm3 (0.9-3.2); Lymphocytes Percent Auto 5.4 % (18.3-44.2); Mean Corpuscular HGB Conc 29.5 g/dl (32-36); Mean Corpuscular Hemoglobin 27.7 pg (26-34); Mean Platelet Volume 10.9 fl (7.4-10.4); Monocytes Absolute Auto 0.7 K/mm3 (0.1-0.6); Monocytes Percent Auto 2.7 % (2.6-8.5); Neutrophils Percent Auto 90.6 % (45.5-73.1); Platelet Count Result 177 k/mm3 (150-375); Red Blood Count 3.64 M/mm3 (4.2-5.4); Red Cell Distribution Width 14.8 % (11.5-14.5); White Blood Count 25.4 K/mm3 (4.5-10.0)
[2023-09-30 07:11] LABS: INR 1.2; Prothrombin Time 15.4 Seconds (11.1-14.7)
[2023-09-30 07:12] LABS: Partial Thromboplastin Time 34.9 Seconds (22.3-36.8)
[2023-09-30 07:13] LABS: Alanine Aminotransferase 22 U/L (6-35); Albumin Level 4.1 g/dL (3.5-5.1); Alkaline Phosphatase 110 U/L (38-126); Anion Gap 11 mmol/L (4-12); Aspartate Amino Transferase 32 U/L (14-36); Bilirubin,Total 0.4 mg/dL (0.2-1.3); Blood Urea Nitrogen 60 mg/dL (7-17); Calcium 8.7 mg/dL (8.4-10.2); Carbon Dioxide 18 mmol/L (22-30); Chloride 112 mmol/L (98-107); Estimated CRCL calculation 24 ml/min; Estimated Glomerular Filt Rate 16; Glucose 103 mg/dL (65-110); Potassium 5.2 mmol/L (3.4-5.0); Sodium 141 mmol/L (137-145)
[2023-09-30 07:19] LABS: NT Pro B Type Natriuretic Pept 15600 pg/mL (19.9-100)
--- NOTE | 2023-09-30 07:55 | ECG_ITS ---
SEE SCANNED COPY FOR CONFIRMED REPORT MTDD
[2023-09-30 08:00] LABS: Hemoglobin A1C 5.1 % (<5.7)
[2023-09-30] MEDS: IPRATROPIUM 0.5 MG/ALBUTEROL SULFATE 2.5 MG AMPUL.NEB 3 ML INHALATION ×3 (08:37→19:50)
[2023-09-30] MEDS: CALCIUM/VITAMIN D 500 MG/5 MCG (200 I.U.) TABLET 1000 MG PO (08:47)
[2023-09-30] MEDS: PANTOPRAZOLE 40 MG TABLET PO (08:47)
[2023-09-30] MEDS: hydrALAZINE HCL 25 MG TABLET PO ×4 (08:47→21:25)
[2023-09-30] MEDS: ASPIRIN 81 MG CHEWABLE TABLET PO (08:47)
[2023-09-30] MEDS: cloNIDine HCL 0.1 MG TABLET 0.3 MG PO ×2 (08:47→13:04)
[2023-09-30] MEDS: ESCITALOPRAM OXALATE 10 MG TABLET PO (08:47)
[2023-09-30] MEDS: ISOSORBIDE MONONITRATE 30 MG TAB.ER.24H PO (08:48)
[2023-09-30] MEDS: AMPICILLIN SULB 3 GM/NS 100 ML 3 GM/100 ML VIAL IVPB ×2 (08:48→21:22)
[2023-09-30] MEDS: FERROUS SULFATE 325 MG TABLET DR PO ×2 (08:48→18:02)
[2023-09-30] MEDS: FUROSEMIDE INJ 40 MG/4 ML VIAL IV PUSH (08:48)
[2023-09-30] MEDS: carvediloL 25 MG TABLET PO ×2 (08:48→21:25)
[2023-09-30] MEDS: SACUBITRIL/VALSARTAN 49-51 MG TABLET 1 TABLET PO ×2 (08:51→18:03)
[2023-09-30 09:35] LABS: Glucose Point of Care 99 mg/dl (65-105)
--- NOTE | 2023-09-30 10:25 | PM.CNCAR ---
Assessment and Plan Assessment and plan (1) Acute on chronic systolic heart failure: Code(s): I50.23 - Acute on chronic systolic (congestive) heart failure Status: Acute (2) Non-ST elevation NM (NSTEMI): Code(s): I21.4 - Non-ST elevation (NSTEMI) myocardial infarction Status: Acute Plan This is a very unfortunate 52-year-old black female who is apparently a cognitively challenged and for this reason is a care home facility resident she has the unfortunate comorbidities of massive obesity, heart failure with reduced ejection fraction, severe chronic kidney disease and recurrent admissions with respiratory difficulty/heart failure. This is yet another 1 of series of admissions like this. Her medical regimen is appropriate with good guideline directed medical therapy. Will advance her furosemide to 80 mg twice daily at this time and observe her course with you. She is not a candidate for angiography and despite her elevated troponins as my partners have mentioned in the previous notes due to her renal insufficiency and massive obesity she is to be treated medically. I will therefore stop her heparin and start clopidogrel for dual anti-platelet therapy. Her prognosis is obviously very poor given her multitude of comorbidities, frequent admissions for decompensated heart failure and non candidacy for aggressive treatment Angel Winkler MD [facility] History of Present Illness History of Present Illness Consult date/time: 09/30/23 10:25 Reason For Visit: resp distress, chf/copd exac, oss aspiration pna Narrative: This is a very unfortunate 52-year-old woman I am seeing at the request of the hospitalist for the stated reason of elevated troponin level. She is not known to me prior to this consultation but has been seen by my partners in the past. She was referred here from her care home facility where she resides because of shortness of breath low oxygen saturation yesterday. The patient has a minimal capability of providing any history she appears to be alert and responsive she is were this time and does nod her head appropriately to questions. According to the records she was not reporting any chest pain or other symptomatology. She has been hospitalized here numerous times with symptoms of dyspnea she has an unfortunate combination of comorbidities including poor left ventricular systolic function with an ejection fraction of approximately 20%, morbid obesity and chronic kidney disease. Because of her chronic kidney disease and her massive obesity she was not felt to be a reasonable candidate for invasive evaluation of her coronary arteries by my partners in the past. Medical therapy for her was recommended. She has been maintained on regimen of aspirin, atorvastatin, carvedilol, clonidine, Entresto, furosemide, hydralazine and isosorbide as well as spironolactone. Despite this regimen she has had frequent admissions here with dyspnea and evidence of pulmonary edema. Her chest x-ray on admission here once again demonstrates mild to moderate pulmonary edema could of course quality of the film is not ideal as her BMI is 52. In this setting we are seeing her again in consultation it looks like her standard medications have been continued she is receiving furosemide at a dosage of 40 mg twice daily intravenously at this time. Her troponin levels were elevated on admission and present to a high of 2.8. Creatinine is 3.8. Review of Systems Review of Systems: ROS unobtainable: Yes unobtainable due to mental status PMFSH Past Medical History Medical History Angina pectoris Asthma-COPD overlap syndrome Cerebrovascular accident Chronic kidney disease Chronic subdural hematoma Congestive heart failure Echocardiogram in Apr showed left ventricular dilation with severe global systolic dysfunction with EF of 30%, diastolic noncompliance, left atrial en
--- NOTE | 2023-09-30 14:18 | PM.IMPN ---
Progress Note: A&P Assessment and Plan (1) Acute respiratory failure with hypoxia and hypercapnia: Code(s): J96.01 - Acute respiratory failure with hypoxia; J96.02 - Acute respiratory failure with hypercapnia Status: Acute Assessment and Plan: Continue to treat underlying heart failure and wean BiPAP as tolerated (2) Acute on chronic systolic heart failure: Code(s): I50.23 - Acute on chronic systolic (congestive) heart failure Status: Acute Assessment and Plan: Continue diuresis and optimal therapy for heart failure (3) Chronic kidney disease: Qualifiers: Chronic kidney disease stage: stage 4 (severe) Qualified Code(s): N18.4 - Chronic kidney disease, stage 4 (severe) Code(s): N18.9 - Chronic kidney disease, unspecified Status: Acute Assessment and Plan: Creatinine slightly above baseline of 3.3 Monitor renal function during diuresis (4) Non-ST elevation [place] (NSTEMI): Code(s): I21.4 - Non-ST elevation (NSTEMI) myocardial infarction Status: Acute Assessment and Plan: Discussed at length with job service consultant She is not a candidate for coronary intervention Dual antiplatelet therapy and optimize therapy for congestive heart failure (5) Hyperglycemia: Code(s): R73.9 - Hyperglycemia, unspecified Status: Acute Assessment and Plan: 248 at admission but euglycemic since Continue to monitor (6) Leukocytosis: Code(s): D72.829 - Elevated white blood cell count, unspecified Status: Acute Assessment and Plan: Suspect demargination due to acute hypoxia and superimposed effect of IV steroids given on 09/28 Subjective Date/time seen: 09/30/23 14:18 Interval history: Tolerating BiPAP and diet. Denied pain. Desaturate still without BiPAP. Denied GI or issues. Denied focal weakness or numbness. Feeling better since admission. Review of Systems Review of Systems: All systems reviewed & are unremarkable except as noted in HPI and below Exam Narrative: HEENT: PERRL, sclerae nonicteric, pharyngeal mucosa pink. NECK: No JVD CHEST: Coarse breath sounds. BiPAP in place. HEART: NL S1/S2, regular, no murmur ABDOMEN: BS+, soft, nontender, no mass, no bruits EXTREMITIES: No cyanosis, edema, or clubbing NEUROLOGIC: CN intact and symmetric to inspection. MUSCULOSKELETAL: Status post right AKA. PSYCH: Alert. Pleasant and cooperative. Answers yes or no to questions. Objective Data Vital Signs Vital Signs: Vital Signs - 24 hr 09/29/23 19:48 09/29/23 20:09 09/29/23 19:50 Temperature Pulse Rate 141 H 119 H Respiratory Rate 40 H 38 H Blood Pressure 145/116 H Pulse Oximetry 84 L 93 Oxygen Delivery Non-Rebreather Mask BiPAP Oxygen Flow Rate 15 Fraction of Inspired Oxygen 09/29/23 19:52 09/29/23 19:57 09/29/23 20:07 Temperature Pulse Rate 141 H Respiratory Rate 25 H 36 H Blood Pressure 145/116 H 174/152 H 149/118 H Pulse Oximetry 80 L 95 Oxygen Delivery Oxygen Flow Rate Fraction of Inspired Oxygen 09/29/23 20:09 09/29/23 20:10 09/29/23 20:10 Temperature Pulse Rate 116 H 117 H 107 H Respiratory Rate 35 H 31 H 31 H Blood Pressure 156/108 H Pulse Oximetry 97 97 93 Oxygen Delivery BiPAP Oxygen Flow Rate Fraction of Inspired Oxygen 09/29/23 20:14 09/29/23 20:15 09/29/23 20:22 Temperature Pulse Rate 113 H 113 H 109 H Respiratory Rate 37 H 38 H 31 H Blood Pressure 113/78 Pulse Oximetry 96 96 95 Oxygen Delivery Oxygen Flow Rate Fraction of Inspired Oxygen 09/29/23 20:34 09/29/23 20:45 09/29/23 21:04 Temperature Pulse Rate 103 H 99 93 Respiratory Rate 27 H 22 H Blood Pressure Pulse Oximetry 98 100 100 Oxygen Delivery Oxygen Flow Rate Fraction of Inspired Oxygen 09/29/23 21:32 09/29/23 21:16 09/29/23 20:10 Temperature 98.6 F 98.6 F Pulse Rate 90 107 H Respiratory Rate 21
[2023-09-30 15:49] LABS: Glucose Point of Care 98 mg/dl (65-105)
[2023-09-30] MEDS: FUROSEMIDE INJ 40 MG/4 ML VIAL 80 MG IV PUSH (18:03)
[2023-09-30 18:47] LABS: Glucose Point of Care 106 mg/dl (65-105)
[2023-09-30 21:01] LABS: Glucose Point of Care 133 mg/dl (65-105)
[2023-09-30] MEDS: ATORVASTATIN 40 MG TABLET 80 MG PO (21:23)
[2023-09-30] MEDS: HEPARIN SODIUM 5,000 UNITS/ML VIAL 5000 UNITS SUB-Q (21:23)
[2023-10-01] VITALS (28 sets, daily range): BP systolic 119–152; BP diastolic 52–82; PULSE 76–103; RESP 16–20; TEMP 36.3–36.8; O2SAT 92–100
[2023-10-01] MEDS: ALBUTEROL SULFATE NEB 2.5 MG/3 ML INH INHALATION ×4 (01:55→20:23)
[2023-10-01] MEDS: IPRATROPIUM 0.5 MG/ALBUTEROL SULFATE 2.5 MG AMPUL.NEB 3 ML INHALATION ×4 (01:55→20:23)
[2023-10-01 06:31] LABS: Basophils Absolute Auto 0.1 K/mm3 (0.0-0.1); Basophils Percent Auto 0.5 % (0.2-1.2); Eosinophils Absolute Auto 0.3 K/mm3 (0-0.3); Eosinophils Percent Auto 2.3 % (0-4.4); Hemoglobin 10.5 g/dL (12.0-15.0); Immature Granulocyte Absolute 0.08 K/mm3 (0.00-0.031); Immature Granulocyte Percent A 0.6 % (0-0.5); Lymphocytes Absolute Auto 2.15 K/mm3 (0.9-3.2); Lymphocytes Percent Auto 16.3 % (18.3-44.2); Mean Corpuscular HGB Conc 28.4 g/dl (32-36); Mean Corpuscular Hemoglobin 27.6 pg (26-34); Mean Corpuscular Volume 97.1 fl (80-100); Mean Platelet Volume 11.4 fl (7.4-10.4); Monocytes Absolute Auto 0.5 K/mm3 (0.1-0.6); Neutrophils Absolute Auto 10.1 K/mm3 (1.3-6.7); Neutrophils Percent Auto 76.3 % (45.5-73.1); Platelet Count Result 168 k/mm3 (150-375); Red Blood Count 3.81 M/mm3 (4.2-5.4); Red Cell Distribution Width 15.4 % (11.5-14.5); White Blood Count 13.2 K/mm3 (4.5-10.0)
[2023-10-01 08:17] LABS: Albumin Level 4.1 g/dL (3.5-5.1); Anion Gap 16 mmol/L (4-12); Blood Urea Nitrogen 68 mg/dL (7-17); Calcium 8.4 mg/dL (8.4-10.2); Carbon Dioxide 12 mmol/L (22-30); Chloride 110 mmol/L (98-107); Estimated CRCL calculation 21 ml/min; Estimated Glomerular Filt Rate 14; Glucose 72 mg/dL (65-110); Phosphorus 5.3 mg/dL (2.5-4.5); Potassium 5.8 mmol/L (3.4-5.0); Sodium 138 mmol/L (137-145)
--- NOTE | 2023-10-01 08:33 | P.PNIM_ITS ---
Progress Note: A&P Assessment and Plan (1) Acute respiratory failure with hypoxia and hypercapnia: Code(s): J96.01 - Acute respiratory failure with hypoxia; J96.02 - Acute respiratory failure with hypercapnia Status: Acute Assessment and Plan: * Continue to treat underlying heart failure and wean oxygen as tolerated * Discontinue vancomycin and ampicillin-sulbactam as no clear evidence for pneumonia in the setting of NSTEMI and CHF (2) Acute on chronic systolic heart failure: Code(s): I50.23 - Acute on chronic systolic (congestive) heart failure Status: Acute Assessment and Plan: * Reduce furosemide from 80 to 40 bid due to increasing creatinine * Transfer to [facility] 09/30 (3) Chronic kidney disease: Qualifiers: Chronic kidney disease stage: stage 4 (severe) Qualified Code(s): N18.4 - Chronic kidney disease, stage 4 (severe) Code(s): N18.9 - Chronic kidney disease, unspecified Status: Acute Assessment and Plan: * Creatinine slightly above baseline of 3.3 at admision, 3.6 09/29, 4.1 09/30 * May need to tolerate higher creatinine in order to treat CHF * Add sodium bicarbonate for metabolic acidosis * Add Lokelma for hyperkalemia * Stop Vanc and Unasyn 09/30 * Consult nephrology due to worsened stage 4 CKD in the setting of severe ischemic cardiomyopathy with hyperkalemia and metabolic acidosis (4) Non-ST elevation [place] (NSTEMI): Code(s): I21.4 - Non-ST elevation (NSTEMI) myocardial infarction Status: Acute Assessment and Plan: * Discussed at length with testing consultant 09/29 * She is not a candidate for coronary intervention * Dual antiplatelet therapy and optimize therapy for congestive heart failure (5) Hyperglycemia: Code(s): R73.9 - Hyperglycemia, unspecified Status: Acute Assessment and Plan: * 248 at admission but euglycemic since * FBS 72 09/30 * Continue to monitor (6) Leukocytosis: Code(s): D72.829 - Elevated white blood cell count, unspecified Status: Acute Assessment and Plan: * Suspect demargination due to acute hypoxia and superimposed effect of IV steroids given on 09/28 * 09/29 25.4k, 09/30 13.2k Subjective Date/time seen: 10/01/23 08:33 Interval history: Feels much better. BiPAP stopped around 2:00 a.m.. Tolerating high-flow nasal cannula. Denied pain. Denied shortness of breath at rest. Denied swelling. Denied GI or difficulties. Tolerating diet. Review of Systems Review of Systems: All systems reviewed & are unremarkable except as noted in HPI and below Exam Narrative: HEENT: PERRL, sclerae nonicteric, pharyngeal mucosa pink. NECK: No JVD CHEST: Coarse breath sounds. NL effort. HEART: NL S1/S2, regular, no murmur ABDOMEN: BS+, soft, nontender, no mass, no bruits EXTREMITIES: No cyanosis, edema, or clubbing NEUROLOGIC: CN intact and symmetric to inspection. MUSCULOSKELETAL: Status post right AKA. PSYCH: Alert. Pleasant and cooperative. Oriented to person and place, but not to time. Objective Data Vital Signs Vital Signs: Vital Signs - 24 hr 09/30/23 08:35 09/30/23 08:37 09/30/23 08:48 Temperature 97.5 F L Pulse Rate 96 95 94 Respiratory Rate 20 21 H Blood Pressure 151/106 H Pulse Oximetry 98 98 Oxygen Delivery BiPAP Oxygen Flow Rate Fraction of Inspired Oxygen 09/30/23 1
--- NOTE | 2023-10-01 08:33 | PM.IMPN ---
Progress Note: A&P Assessment and Plan (1) Acute respiratory failure with hypoxia and hypercapnia: Code(s): J96.01 - Acute respiratory failure with hypoxia; J96.02 - Acute respiratory failure with hypercapnia Status: Acute Assessment and Plan: Continue to treat underlying heart failure and wean oxygen as tolerated Discontinue vancomycin and ampicillin-sulbactam as no clear evidence for pneumonia in the setting of NSTEMI and CHF (2) Acute on chronic systolic heart failure: Code(s): I50.23 - Acute on chronic systolic (congestive) heart failure Status: Acute Assessment and Plan: Reduce furosemide from 80 to 40 bid due to increasing creatinine Transfer to [facility] 09/30 (3) Chronic kidney disease: Qualifiers: Chronic kidney disease stage: stage 4 (severe) Qualified Code(s): N18.4 - Chronic kidney disease, stage 4 (severe) Code(s): N18.9 - Chronic kidney disease, unspecified Status: Acute Assessment and Plan: Creatinine slightly above baseline of 3.3 at admision, 3.6 09/29, 4.1 09/30 May need to tolerate higher creatinine in order to treat CHF Add sodium bicarbonate for metabolic acidosis Add Lokelma for hyperkalemia Stop Vanc and Unasyn 09/30 Consult nephrology due to worsened stage 4 CKD in the setting of severe ischemic cardiomyopathy with hyperkalemia and metabolic acidosis (4) Non-ST elevation [place] (NSTEMI): Code(s): I21.4 - Non-ST elevation (NSTEMI) myocardial infarction Status: Acute Assessment and Plan: Discussed at length with customer experience consultant 09/29 She is not a candidate for coronary intervention Dual antiplatelet therapy and optimize therapy for congestive heart failure (5) Hyperglycemia: Code(s): R73.9 - Hyperglycemia, unspecified Status: Acute Assessment and Plan: 248 at admission but euglycemic since FBS 72 09/30 Continue to monitor (6) Leukocytosis: Code(s): D72.829 - Elevated white blood cell count, unspecified Status: Acute Assessment and Plan: Suspect demargination due to acute hypoxia and superimposed effect of IV steroids given on 09/28 09/29 25.4k, 09/30 13.2k Subjective Date/time seen: 10/01/23 08:33 Interval history: Feels much better. BiPAP stopped around 2:00 a.m.. Tolerating high-flow nasal cannula. Denied pain. Denied shortness of breath at rest. Denied swelling. Denied GI or difficulties. Tolerating diet. Review of Systems Review of Systems: All systems reviewed & are unremarkable except as noted in HPI and below Exam Narrative: HEENT: PERRL, sclerae nonicteric, pharyngeal mucosa pink. NECK: No JVD CHEST: Coarse breath sounds. NL effort. HEART: NL S1/S2, regular, no murmur ABDOMEN: BS+, soft, nontender, no mass, no bruits EXTREMITIES: No cyanosis, edema, or clubbing NEUROLOGIC: CN intact and symmetric to inspection. MUSCULOSKELETAL: Status post right AKA. PSYCH: Alert. Pleasant and cooperative. Oriented to person and place, but not to time. Objective Data Vital Signs Vital Signs: Vital Signs - 24 hr 09/30/23 08:35 09/30/23 08:37 09/30/23 08:48 Temperature 97.5 F L Pulse Rate 96 95 94 Respiratory Rate 20 21 H Blood Pressure 151/106 H Pulse Oximetry 98 98 Oxygen Delivery BiPAP Oxygen Flow Rate Fraction of Inspired Oxygen 09/30/23 11:38 09/30/23 11:57 09/30/23 14:07 Temperature 98.4 F Pulse Rate 88 83 81 Respiratory Rate 22 H 22 H 24 H Blood Pressure 108/66 Pulse Oximetry 96 97 Oxygen Delivery Nasal Cannula Oxygen Flow Rate 5 Fraction of Inspired Oxygen 09/30/23 14:08 09/30/23 14:10 09/30/23 16:16 Temperature 96.7 F L Pulse Rate 79 88 88 Respiratory Rate 20 24 H 22 H Blood Pressure 114/57 L Pulse Oximetry 100 99 93 Oxygen Delivery BiPAP Nasal Cannula Oxygen Flow Rate 5 Fraction of Inspired Oxygen 09/30/23 16:05 09/30/23 10:00 09/30/23 12:00 Temperature Pulse
[2023-10-01] MEDS: HEPARIN SODIUM 5,000 UNITS/ML VIAL 5000 UNITS SUB-Q ×2 (08:52→20:34)
[2023-10-01] MEDS: FUROSEMIDE INJ 40 MG/4 ML VIAL IV PUSH ×2 (08:52→18:26)
[2023-10-01] MEDS: ISOSORBIDE MONONITRATE 30 MG TAB.ER.24H PO (08:53)
[2023-10-01] MEDS: ASPIRIN 81 MG CHEWABLE TABLET PO (08:53)
[2023-10-01] MEDS: PANTOPRAZOLE 40 MG TABLET PO (08:53)
[2023-10-01] MEDS: SACUBITRIL/VALSARTAN 49-51 MG TABLET 1 TABLET PO ×2 (08:53→18:26)
[2023-10-01] MEDS: SODIUM BICARBONATE TAB 650 MG TABLET PO ×2 (08:53→18:26)
[2023-10-01] MEDS: carvediloL 25 MG TABLET PO ×2 (08:53→22:30)
[2023-10-01] MEDS: ESCITALOPRAM OXALATE 10 MG TABLET PO (08:53)
[2023-10-01] MEDS: CALCIUM/VITAMIN D 500 MG/5 MCG (200 I.U.) TABLET 1000 MG PO (08:53)
[2023-10-01] MEDS: CLOPIDOGREL BISULFATE 75 MG TABLET PO (08:53)
[2023-10-01] MEDS: FERROUS SULFATE 325 MG TABLET DR PO ×2 (08:53→18:26)
[2023-10-01] MEDS: hydrALAZINE HCL 25 MG TABLET PO ×4 (08:53→22:29)
--- NOTE | 2023-10-01 08:59 | PM.CNNEP ---
Assessment and Plan Assessment and plan (1) Chronic kidney disease: Qualifiers: Chronic kidney disease stage: stage 4 (severe) Qualified Code(s): N18.4 - Chronic kidney disease, stage 4 (severe) Code(s): N18.9 - Chronic kidney disease, unspecified Status: Acute Assessment and Plan: The patient has chronic kidney disease. Baseline creatinine is in the high threes. This gives her CKD stage 4. Most likely this is due to hypertension, poor ejection fraction, and possibly some contribution from her sleep apnea and high body mass index. the patient also has a mild rise in her creatinine since admission. This is probably related to her STEMI and possible diuretics. Will check urine electrolytes and a renal ultrasound . The patient's diuretics were cut from 80mg IV b.i.d. to 40mg IV b.i.d.. Will leave her on this for now and recheck a creatinine tomorrow. (2) Hypertension: Qualifiers: Hypertension type: unspecified Qualified Code(s): I10 - Essential (primary) hypertension Code(s): I10 - Essential (primary) hypertension Status: Acute Assessment and Plan: Patient has hypertension. Blood pressure is under good control (3) Acute exacerbation of chronic obstructive airways disease: Code(s): J44.1 - Chronic obstructive pulmonary disease with (acute) exacerbation Status: Acute Assessment and Plan: the patient is getting supportive care (4) Acute non-ST elevation myocardial infarction (NSTEMI): Code(s): I21.4 - Non-ST elevation (NSTEMI) myocardial infarction Status: Acute Assessment and Plan: troponins are on the rise. Cardiology consult has been requested (5) Obstructive apnea: Code(s): G47.33 - Obstructive sleep apnea (adult) (pediatric) Status: Acute Assessment and Plan: the patient was on a BiPAP machine earlier this admission History of Present Illness Reason for Consult Consult date: 10/01/23 Chief Complaint Chief complaint: resp distress, chf/copd exac, oss aspiration pna History of Present Illness Narrative: Jessica is a very pleasant 52-year-old lady who has multiple medical problems including chronic kidney disease stage 4, congestive heart failure with an EF of 20%, hypertension, seizures, stroke, chronic subdural hematoma, high body mass index, sleep apnea. the patient has chronic kidney disease. Back in 2021 was around 1.5 her so but more recently the creatinine has been in the range of 3.5-4. Occasionally she has an episode of acute on chronic kidney disease. She has had an extensive evaluation for chronic kidney disease and it is felt that this is due to hypertension and vascular disease as well as pre renal azotemia because of her congestive heart failure with the ejection fraction of only 20%. She came to the hospital this time because she was eating and developed Coughing and vomiting. She went back to the room and developed shortness of breath. she came to the emergency room. There she had hypoxia and hypercarbia. She was placed on a BiPAP machine. She was given antibiotics. She was also given steroids, diuretics, and supportive care for her COPD/respiratory failure. Eventually she improved as far as her breathing goes. She is now off the ventilator and back on 5L of oxygen per nasal cannula. She says she feels better now than she did before. Her creatinine was followed was in the high threes but then massiel to the current value of 4.1 so renal consultation was requested. Patient denies any bloody foamy cloudy or smelly urine. No recent history of bladder infections. No history of kidney stones. Review of Systems Constitutional: Constitutional: Reports no additional constitutional complaints Eyes: Eyes: Reports no additional eye complaints ENT: Reports system reviewed and no additional complaints, except as documented Cardiovascular: Cardiovascular: R
[2023-10-01 09:13] LABS: Glucose Point of Care 66 mg/dl (65-105)
[2023-10-01 10:51] LABS: Creatine Kinase 97 U/L (30-135)
[2023-10-01] MEDS: SODIUM ZIRCONIUM CYCLOSILICATE 5 GM POWD.PACK PO ×2 (12:09→20:37)
[2023-10-01 12:17] LABS: Glucose Point of Care 138 mg/dl (65-105)
[2023-10-01 12:29] LABS: Total Protein Urine Random 82 mg/dL; Ur Ttl Prot Creatinine Ratio 2.41 mg/mg (0-0.20); Urea Random Urine 247 MG/DL
[2023-10-01 12:51] LABS: Sodium Urine Random 113 meq/L
--- NOTE | 2023-10-01 13:15 | PC.NURSE ---
This patient, Mirela Preston, was transferred to [facility] on 10/01/23 at 1315. Personal belongings sent with patient. Report given to Carol RODRIGES. Appropriate documentation sent with patient.
--- NOTE | 2023-10-01 13:27 | PC.NURSE ---
This patient, Mirela Preston, was received from IMU on 10/01/23 at 1328. Patient/family oriented to unit policies and routines. Report received from Kota RODRIGES.
[2023-10-01 17:44] LABS: Glucose Point of Care 91 mg/dl (65-105)
[2023-10-01 21:31] LABS: Glucose Point of Care 133 mg/dl (65-105)
[2023-10-01] MEDS: ATORVASTATIN 40 MG TABLET 80 MG PO (22:30)
--- NOTE | 2023-10-01 22:31 | PC.NURSE ---
Evening medications administered late r/t administration of Lokelma and parameters associated with administration of Lokelma--No oral meds to be given 2 hours before/after administration of Lokelma.
[2023-10-02] VITALS (21 sets, daily range): BP systolic 99–155; BP diastolic 55–83; PULSE 77–96; RESP 16–22; TEMP 36.4–37.1; O2SAT 95–100
[2023-10-02] MEDS: IPRATROPIUM 0.5 MG/ALBUTEROL SULFATE 2.5 MG AMPUL.NEB 3 ML INHALATION ×4 (03:01→20:50)
[2023-10-02] MEDS: ALBUTEROL SULFATE NEB 2.5 MG/3 ML INH INHALATION ×4 (03:01→20:50)
[2023-10-02 06:10] LABS: Hematocrit 30.3 % (37.0-47.0); Hemoglobin 9.2 g/dL (12.0-15.0); Mean Corpuscular HGB Conc 30.4 g/dl (32-36); Mean Corpuscular Hemoglobin 28.2 pg (26-34); Mean Corpuscular Volume 92.9 fl (80-100); Mean Platelet Volume 11.9 fl (7.4-10.4); Platelet Count Result 149 k/mm3 (150-375); Red Blood Count 3.26 M/mm3 (4.2-5.4); White Blood Count 8.5 K/mm3 (4.5-10.0)
[2023-10-02 06:31] LABS: Anion Gap 10 mmol/L (4-12); Blood Urea Nitrogen 64 mg/dL (7-17); Calcium 8.4 mg/dL (8.4-10.2); Carbon Dioxide 22 mmol/L (22-30); Chloride 105 mmol/L (98-107); Estimated CRCL calculation 21 ml/min; Estimated Glomerular Filt Rate 14; Glucose 88 mg/dL (65-110); Phosphorus 4.6 mg/dL (2.5-4.5); Potassium 4.8 mmol/L (3.4-5.0); Sodium 137 mmol/L (137-145)
[2023-10-02 08:14] LABS: Glucose Point of Care 92 mg/dl (65-105)
[2023-10-02] MEDS: carvediloL 25 MG TABLET PO ×2 (10:24→21:17)
[2023-10-02] MEDS: CALCIUM/VITAMIN D 500 MG/5 MCG (200 I.U.) TABLET 1000 MG PO (10:24)
[2023-10-02] MEDS: SODIUM BICARBONATE TAB 650 MG TABLET PO ×2 (10:24→17:33)
[2023-10-02] MEDS: CLOPIDOGREL BISULFATE 75 MG TABLET PO (10:24)
[2023-10-02] MEDS: FERROUS SULFATE 325 MG TABLET DR PO ×2 (10:25→17:33)
[2023-10-02] MEDS: PANTOPRAZOLE 40 MG TABLET PO (10:25)
[2023-10-02] MEDS: hydrALAZINE HCL 25 MG TABLET PO ×4 (10:25→21:17)
[2023-10-02] MEDS: SACUBITRIL/VALSARTAN 49-51 MG TABLET 1 TABLET PO ×2 (10:25→17:33)
[2023-10-02] MEDS: ASPIRIN 81 MG CHEWABLE TABLET PO (10:25)
[2023-10-02] MEDS: ESCITALOPRAM OXALATE 10 MG TABLET PO (10:25)
[2023-10-02] MEDS: ISOSORBIDE MONONITRATE 30 MG TAB.ER.24H PO (10:25)
[2023-10-02] MEDS: FUROSEMIDE INJ 40 MG/4 ML VIAL IV PUSH ×2 (10:26→17:33)
[2023-10-02] MEDS: HEPARIN SODIUM 5,000 UNITS/ML VIAL 5000 UNITS SUB-Q ×2 (10:26→21:18)
--- NOTE | 2023-10-02 10:32 | PM.PNCARD ---
Progress Note: A&P Assessment and Plan (1) Acute exacerbation of CHF (congestive heart failure): Qualifiers: Heart failure type: combined systolic and diastolic Qualified Code(s): I50.43 - Acute on chronic combined systolic (congestive) and diastolic (congestive) heart failure Code(s): I50.9 - Heart failure, unspecified Status: Acute Plan this is a 52-year-old lady who has low ejection fraction and for this has been placed on appropriate guideline directed medical therapy. As mentioned in my note is very difficult to discern whether she came to the hospital with volume overload or primarily a choking incident. In any event agree with Dr. Irving to go back to her baseline level of furosemide as she does not appear and physical exam to be significantly volume overloaded. As stated by my partner in previous consultation note she is not a acceptable candidate for invasive evaluation(cath). will continue her guideline directed medical therapy and attempt to arrange for outpatient follow-up after she is discharged. Prognosis given her low ejection fraction and unfortunate comorbidities is poor in my opinion Angel Winkler MD [facility] Subjective Date/time seen: Date of service:10/02/23 10:32 Interval history: Follow-up visit in this 52-year-old woman with: Heart failure with reduced ejection fraction but other comorbidities including massive obesity, cognitive challenging and chronic kidney disease stage 4. She entered the hospital with shortness of breath difficult to tell according to the history whether this was volume overload or choking incident. Today she reports to be comfortable answers questions with head nodding appropriately. Denies any dyspnea. Exam Const: General: comfortable and no acute distress Other: Uncomfortable morbidly obese black female HENMT: Mouth: Yes moist mucous membranes Eyes: Sclera: sclerae normal Neck: Neck: supple Other: cannot comment on JVD given her body habitus Resp: Effort & Inspection: normal respiratory effort Other: expiratory rhonchi throughout both lung daniels no pulmonary rales are audible Cardio: Rate: regular rate Rhythm: regular rhythm Other: PMI is not palpable GI: GI Palp: Yes Soft to palpation Auscultation: normal bowel sounds Other: massively obese otherwise benign Neuro: Other: alert and responsive Extrem: Other: no edema in the lower extremity Objective Data Vital Signs Vital Signs: Vital Signs - 24 hr 10/01/23 11:26 10/01/23 12:00 10/01/23 13:23 Temperature 36.3 C L Pulse Rate 102 H 94 Respiratory Rate 16 Blood Pressure 124/52 L Pulse Oximetry 92 98 Oxygen Delivery Nasal Cannula Oxygen Flow Rate 5 Fraction of Inspired Oxygen 10/01/23 13:23 10/01/23 13:30 10/01/23 13:38 Temperature Pulse Rate 84 84 88 Respiratory Rate 20 20 Blood Pressure Pulse Oximetry Oxygen Delivery Oxygen Flow Rate Fraction of Inspired Oxygen 10/01/23 13:30 10/01/23 14:05 10/01/23 16:00 Temperature 36.4 C 36.4 C Pulse Rate 84 82 Respiratory Rate 16 16 Blood Pressure 124/65 126/68 Pulse Oximetry 100 99 100 Oxygen Delivery Nasal Cannula Oxygen Flow Rate 3 Fraction of Inspired Oxygen 10/01/23 18:22 10/01/23 18:32 10/01/23 16:00 Temperature Pulse Rate 103 H Respiratory Rate Blood Pressure 138/78 Pulse Oximetry 94 Oxygen Delivery Nasal Cannula Oxygen Flow Rate 2 Fraction of Inspired Oxygen 10/01/23 19:28 10/01/23 20:23 10/01/23 20:23 Temperature 36.4 C Pulse Rate 93 94 Respiratory Rate 18 20 Blood Pressure 152/60 H Pulse Oximetry 99 98 Oxygen Delivery Nasal Cannula Oxygen Flow Rate 2 Fraction of Inspired Oxygen 10/01/23 20:34 10/01/23 22:30 10/01/23 20:00 Temperature Pulse Rate 93 93 99 Respiratory Rate 20 Blood Pressure Pulse Oximetry Oxygen Delivery
--- NOTE | 2023-10-02 11:31 | P.PNNP_ITS ---
Progress Note: A&P Assessment and Plan (1) ARMIN (acute kidney injury): Code(s): N17.9 - Acute kidney failure, unspecified Status: Acute Assessment and Plan: * elevated in comparison to admission * HOWEVER, her creatinine has been this high before in the past * suspect secondary to diuretics in the context of NSTEMI * evaluation to date: * urine electrolytes non-prerenal * moderate proteinuria * renal u/s consistent with CKD * CPK normal * follow trend of repeat labs and UOP (2) Chronic kidney disease, stage IV (severe): Code(s): N18.4 - Chronic kidney disease, stage 4 (severe) Status: Acute Assessment and Plan: * baseline creatinine seems to run around 2.9 - 3.6mg/dl * however, there are times where it has been as high as 4.0mg/dl range * etiology of CKD is multifactorial: * left over damage from ATN during her April 2023 hospitalization * hypertension * cardiomyopathy/depressed EF/cardiorenal syndrome * CHACE/OHS * Obesity/high BMI * remains at risk for MANAGER ROOFING/dialysis in the near future (but I question if she would tolerate such an intervention)... (3) Acute non-ST elevation myocardial infarction (NSTEMI): Code(s): I21.4 - Non-ST elevation (NSTEMI) myocardial infarction Status: Acute Assessment and Plan: * Cardiology following * not a candidate for angiogram/catheterization * optimize medical management (4) Hypertension: Qualifiers: Hypertension type: unspecified Qualified Code(s): I10 - Essential (primary) hypertension Code(s): I10 - Essential (primary) hypertension Status: Acute Assessment and Plan: * reasonable control * follow trend of hemodyamics (5) Acute respiratory failure with hypoxia and hypercapnia: Code(s): J96.01 - Acute respiratory failure with hypoxia; J96.02 - Acute respiratory failure with hypercapnia Status: Acute Assessment and Plan: * clinical improvement noted * no evidence of infection/pneumonia -- antibiotic d/c'd * CHF/volume status seems relatively stable - on IV lasix * however, complicated by asthma, COPD, and CHACE * wean oxygen as tolerated (6) Anemia: Qualifiers: Anemia type: due to chronic kidney disease Chronic kidney disease stage: stage 3 (moderate) Code(s): D64.9 - Anemia, unspecified Status: Chronic Assessment and Plan: * suspect secondary to CKD and acute illness * follow trend of H/H * consider ANA while hospitalized Will continue to follow. Subjective Date/time seen: 10/02/23 11:31 Interval history: Follow-up for acute kidney injury/acute renal failure on chronic kidney disease. Chart reviewed -- assuming care from Dr. Irving; she appears to be doing feeling better in general in comparison to admission; she denies any shortness of breath/dyspnea at the time of my visit and seems comfortable on 2L oxygen by nasal cannula; no other events overnight or earlier this morning. Exam Narrative: General: large/obese female in NAD Heart: normal S1 and S2; no rub Lungs: coarse breath sounds Abdomen: soft, nontender, nondistended, positive bowel sounds Extremities: no cyanosis or clubbing; trace edema in LLE; s/p right AKA Skin: warm and dry Objective Data Vital Signs Vital Signs: Vital Signs Temp Pulse Resp BP Pulse Ox O2 Del Method O2 Flow Ra
--- NOTE | 2023-10-02 11:31 | PM.PNNEP ---
Progress Note: A&P Assessment and Plan (1) ARMIN (acute kidney injury): Code(s): N17.9 - Acute kidney failure, unspecified Status: Acute Assessment and Plan: elevated in comparison to admission HOWEVER, her creatinine has been this high before in the past suspect secondary to diuretics in the context of NSTEMI evaluation to date: urine electrolytes non-prerenal moderate proteinuria renal u/s consistent with CKD CPK normal follow trend of repeat labs and UOP (2) Chronic kidney disease, stage IV (severe): Code(s): N18.4 - Chronic kidney disease, stage 4 (severe) Status: Acute Assessment and Plan: baseline creatinine seems to run around 2.9 - 3.6mg/dl however, there are times where it has been as high as 4.0mg/dl range etiology of CKD is multifactorial: left over damage from ATN during her April 2023 hospitalization hypertension cardiomyopathy/depressed EF/cardiorenal syndrome CHACE/OHS Obesity/high BMI remains at risk for OFFICE SUPPORT/dialysis in the near future (but I question if she would tolerate such an intervention)... (3) Acute non-ST elevation myocardial infarction (NSTEMI): Code(s): I21.4 - Non-ST elevation (NSTEMI) myocardial infarction Status: Acute Assessment and Plan: Cardiology following not a candidate for angiogram/catheterization optimize medical management (4) Hypertension: Qualifiers: Hypertension type: unspecified Qualified Code(s): I10 - Essential (primary) hypertension Code(s): I10 - Essential (primary) hypertension Status: Acute Assessment and Plan: reasonable control follow trend of hemodyamics (5) Acute respiratory failure with hypoxia and hypercapnia: Code(s): J96.01 - Acute respiratory failure with hypoxia; J96.02 - Acute respiratory failure with hypercapnia Status: Acute Assessment and Plan: clinical improvement noted no evidence of infection/pneumonia -- antibiotic d/c'd CHF/volume status seems relatively stable - on IV lasix however, complicated by asthma, COPD, and CHACE wean oxygen as tolerated (6) Anemia: Qualifiers: Anemia type: due to chronic kidney disease Chronic kidney disease stage: stage 3 (moderate) Code(s): D64.9 - Anemia, unspecified Status: Chronic Assessment and Plan: suspect secondary to CKD and acute illness follow trend of H/H consider ANA while hospitalized Will continue to follow. Subjective Date/time seen: 10/02/23 11:31 Interval history: Follow-up for acute kidney injury/acute renal failure on chronic kidney disease. Chart reviewed -- assuming care from Dr. Irving; she appears to be doing feeling better in general in comparison to admission; she denies any shortness of breath/dyspnea at the time of my visit and seems comfortable on 2L oxygen by nasal cannula; no other events overnight or earlier this morning. Exam Narrative: General: large/obese female in NAD Heart: normal S1 and S2; no rub Lungs: coarse breath sounds Abdomen: soft, nontender, nondistended, positive bowel sounds Extremities: no cyanosis or clubbing; trace edema in LLE; s/p right AKA Skin: warm and dry Objective Data Vital Signs Vital Signs: Vital Signs Temp Pulse Resp BP Pulse Ox O2 Del Method O2 Flow Rate 10/02/23 10:24 88 10/02/23 08:00 97.5 F L 90 22 H 148/83 H 100 10/02/23 08:03 88 20 10/02/23 07:50 84 20 10/02/23 07:50 99 Nasal Cannula 2 10/02/23 08:00 84 10/02/23 06:29 98.2 F 89 18 133/64 100 10/02/23 04:00 81 10/02/23 04:00 98.0 F 84 18 106/59 L 98 10/02/23 03:33 85 18 10/02/23 03:01 82 18 10/02/23 00:00 98.7 F 88 18 99/55 L 100 10/02/23 00:00 96 10/01/23 20:00 98 Nasal Cannula 2 10/01/23 20:00 99 10/01/23 22:30 93 10/01/23 20:34 93
[2023-10-02 11:43] LABS: Glucose Point of Care 100 mg/dl (65-105)
[2023-10-02] MEDS: SODIUM ZIRCONIUM CYCLOSILICATE 5 GM POWD.PACK PO ×2 (12:20→17:33)
[2023-10-02 16:48] LABS: Glucose Point of Care 95 mg/dl (65-105)
--- NOTE | 2023-10-02 17:06 | P.PNIM_ITS ---
Progress Note: A&P Assessment and Plan (1) Acute respiratory failure with hypoxia and hypercapnia: Code(s): J96.01 - Acute respiratory failure with hypoxia; J96.02 - Acute respiratory failure with hypercapnia Status: Acute Assessment and Plan: * Continue to treat underlying heart failure and wean oxygen as tolerated * Discontinue vancomycin and ampicillin-sulbactam as no clear evidence for pneumonia in the setting of NSTEMI and CHF (2) Acute on chronic systolic heart failure: Code(s): I50.23 - Acute on chronic systolic (congestive) heart failure Status: Acute Assessment and Plan: * Reduce furosemide from 80 to 40 bid due to increasing creatinine * Transfer to [facility] 09/30 (3) Chronic kidney disease: Qualifiers: Chronic kidney disease stage: stage 4 (severe) Qualified Code(s): N18.4 - Chronic kidney disease, stage 4 (severe) Code(s): N18.9 - Chronic kidney disease, unspecified Status: Acute Assessment and Plan: * Creatinine slightly above baseline of 3.3 at admision, 3.6 09/29, 4.1 09/30 & 10/01 * May need to tolerate higher creatinine in order to treat CHF * Add sodium bicarbonate for metabolic acidosis which has now resolved * Add Lokelma for hyperkalemia which is now resolved * Stop Vanc and Unasyn 09/30 * Follow-up closely with Nephrology regarding worsening stage 4 CKD in the setting of severe ischemic cardiomyopathy with hyperkalemia and metabolic acidosis (4) Non-ST elevation [place] (NSTEMI): Code(s): I21.4 - Non-ST elevation (NSTEMI) myocardial infarction Status: Acute Assessment and Plan: * Discussed at length with showroom consultant 09/29 * She is not a candidate for coronary intervention * Dual antiplatelet therapy and optimize therapy for congestive heart failure (5) Hyperglycemia: Code(s): R73.9 - Hyperglycemia, unspecified Status: Acute Assessment and Plan: * 248 at admission but euglycemic since * FBS 88 * Continue to monitor (6) Leukocytosis: Code(s): D72.829 - Elevated white blood cell count, unspecified Status: Acute Assessment and Plan: * Suspect demargination due to acute hypoxia and superimposed effect of IV steroids given on 09/28 * 09/29 25.4k -> 09/30 13.2k -> 10/01 8.5 K ... Resolved (7) Osteoarthritis of right shoulder: Code(s): M19.011 - Primary osteoarthritis, right shoulder Status: Acute Assessment and Plan: * Most likely secondary to age related generalized osteo-arthritis * Right shoulder x-ray two views ordered * Patient needs to follow-up with PCP for referral to work with physical therapy/Orthopedics evaluation as an outpatient Plan PT/OT evaluation ordered for DC planning Follow-up closely with Cardiology and Nephrology ? Patient seen and examined at bedside during my morning rounds ? Collaborated with patient's nurse at the bedside in detail and addressed all concerns ? Labs, electrolytes, radiology, investigations and test results reviewed ? Consult/Nursing/Ancilliary notes on the chart reviewed and appreciated ? Spoke with patient/family at the bedside and answered all the questions that they had Repeat labs in a.m. Electrolyte replacement as per protocol. Patient will be monitored very closely on the floor. Further recommendations as per the hospital course. Time Spent With Patient Time with patient: 15 - 25 minutes Subjective Date/time seen: 10/02/23 17:06 Interval history: Patient sitting in bed during my morning rounds. Her shortness of breath has improved and sh
--- NOTE | 2023-10-02 17:06 | PM.IMPN ---
Progress Note: A&P Assessment and Plan (1) Acute respiratory failure with hypoxia and hypercapnia: Code(s): J96.01 - Acute respiratory failure with hypoxia; J96.02 - Acute respiratory failure with hypercapnia Status: Acute Assessment and Plan: Continue to treat underlying heart failure and wean oxygen as tolerated Discontinue vancomycin and ampicillin-sulbactam as no clear evidence for pneumonia in the setting of NSTEMI and CHF (2) Acute on chronic systolic heart failure: Code(s): I50.23 - Acute on chronic systolic (congestive) heart failure Status: Acute Assessment and Plan: Reduce furosemide from 80 to 40 bid due to increasing creatinine Transfer to [facility] 09/30 (3) Chronic kidney disease: Qualifiers: Chronic kidney disease stage: stage 4 (severe) Qualified Code(s): N18.4 - Chronic kidney disease, stage 4 (severe) Code(s): N18.9 - Chronic kidney disease, unspecified Status: Acute Assessment and Plan: Creatinine slightly above baseline of 3.3 at admision, 3.6 09/29, 4.1 09/30 & 10/01 May need to tolerate higher creatinine in order to treat CHF Add sodium bicarbonate for metabolic acidosis which has now resolved Add Lokelma for hyperkalemia which is now resolved Stop Vanc and Unasyn 09/30 Follow-up closely with Nephrology regarding worsening stage 4 CKD in the setting of severe ischemic cardiomyopathy with hyperkalemia and metabolic acidosis (4) Non-ST elevation RI (NSTEMI): Code(s): I21.4 - Non-ST elevation (NSTEMI) myocardial infarction Status: Acute Assessment and Plan: Discussed at length with tour consultant 09/29 She is not a candidate for coronary intervention Dual antiplatelet therapy and optimize therapy for congestive heart failure (5) Hyperglycemia: Code(s): R73.9 - Hyperglycemia, unspecified Status: Acute Assessment and Plan: 248 at admission but euglycemic since FBS 88 Continue to monitor (6) Leukocytosis: Code(s): D72.829 - Elevated white blood cell count, unspecified Status: Acute Assessment and Plan: Suspect demargination due to acute hypoxia and superimposed effect of IV steroids given on 09/28 09/29 25.4k -> 09/30 13.2k -> 10/01 8.5 K ... Resolved (7) Osteoarthritis of right shoulder: Code(s): M19.011 - Primary osteoarthritis, right shoulder Status: Acute Assessment and Plan: Most likely secondary to age related generalized osteo-arthritis Right shoulder x-ray two views ordered Patient needs to follow-up with PCP for referral to work with physical therapy/Orthopedics evaluation as an outpatient Plan PT/OT evaluation ordered for DC planning Follow-up closely with Cardiology and Nephrology ? Patient seen and examined at bedside during my morning rounds ? Collaborated with patient's nurse at the bedside in detail and addressed all concerns ? Labs, electrolytes, radiology, investigations and test results reviewed ? Consult/Nursing/Ancilliary notes on the chart reviewed and appreciated ? Spoke with patient/family at the bedside and answered all the questions that they had Repeat labs in a.m. Electrolyte replacement as per protocol. Patient will be monitored very closely on the floor. Further recommendations as per the hospital course. Time Spent With Patient Time with patient: 15 - 25 minutes Subjective Date/time seen: 10/02/23 17:06 Interval history: Patient sitting in bed during my morning rounds. Her shortness of breath has improved and she is currently requiring oxygen via nasal cannula. Encourage patient to ambulate. Complaining of chronic pain in the right shoulder. Review of Systems Review of Systems: 14 systems were reviewed with pertinent positives and negatives per HPI. Except as documented in the HPI/progress notes, all other systems were reviewed and are negative. All systems reviewed & are unremarkable except as noted
[2023-10-02] MEDS: ATORVASTATIN 40 MG TABLET 80 MG PO (21:17)
[2023-10-02 21:25] LABS: Glucose Point of Care 132 mg/dl (65-105)
[2023-10-03] VITALS (18 sets, daily range): BP systolic 105–185; BP diastolic 54–77; PULSE 70–98; RESP 18–22; TEMP 36.4–36.9; O2SAT 96–100
[2023-10-03] MEDS: ALBUTEROL SULFATE NEB 2.5 MG/3 ML INH INHALATION ×4 (02:43→20:09)
[2023-10-03] MEDS: IPRATROPIUM 0.5 MG/ALBUTEROL SULFATE 2.5 MG AMPUL.NEB 3 ML INHALATION ×4 (02:43→20:09)
[2023-10-03 06:03] LABS: Hemoglobin 8.5 g/dL (12.0-15.0); Mean Corpuscular HGB Conc 29.3 g/dl (32-36); Mean Corpuscular Volume 95.4 fl (80-100); Mean Platelet Volume 11.4 fl (7.4-10.4); Platelet Count Result 158 k/mm3 (150-375); Red Blood Count 3.04 M/mm3 (4.2-5.4); Red Cell Distribution Width 14.9 % (11.5-14.5); White Blood Count 8.3 K/mm3 (4.5-10.0)
[2023-10-03 06:12] LABS: Albumin Level 3.9 g/dL (3.5-5.1); Anion Gap 10 mmol/L (4-12); Blood Urea Nitrogen 60 mg/dL (7-17); Calcium 8.4 mg/dL (8.4-10.2); Carbon Dioxide 22 mmol/L (22-30); Chloride 107 mmol/L (98-107); Estimated CRCL calculation 22 ml/min; Estimated Glomerular Filt Rate 15; Glucose 93 mg/dL (65-110); Phosphorus 6.1 mg/dL (2.5-4.5); Potassium 4.7 mmol/L (3.4-5.0); Sodium 139 mmol/L (137-145)
[2023-10-03 06:17] LABS: Magnesium 2.3 mg/dL (1.6-2.3)
[2023-10-03] MEDS: HEPARIN SODIUM 5,000 UNITS/ML VIAL 5000 UNITS SUB-Q ×2 (08:03→21:22)
[2023-10-03] MEDS: SODIUM BICARBONATE TAB 650 MG TABLET PO ×2 (08:04→17:41)
[2023-10-03] MEDS: FUROSEMIDE INJ 40 MG/4 ML VIAL IV PUSH ×2 (08:04→17:40)
[2023-10-03] MEDS: carvediloL 25 MG TABLET PO ×2 (08:04→21:22)
[2023-10-03] MEDS: ISOSORBIDE MONONITRATE 30 MG TAB.ER.24H PO (08:04)
[2023-10-03] MEDS: hydrALAZINE HCL 25 MG TABLET PO ×4 (08:04→21:22)
[2023-10-03] MEDS: CALCIUM/VITAMIN D 500 MG/5 MCG (200 I.U.) TABLET 1000 MG PO (08:05)
[2023-10-03] MEDS: CLOPIDOGREL BISULFATE 75 MG TABLET PO (08:05)
[2023-10-03] MEDS: SACUBITRIL/VALSARTAN 49-51 MG TABLET 1 TABLET PO ×2 (08:05→17:41)
[2023-10-03] MEDS: PANTOPRAZOLE 40 MG TABLET PO (08:05)
[2023-10-03] MEDS: FERROUS SULFATE 325 MG TABLET DR PO ×2 (08:06→17:41)
[2023-10-03] MEDS: ASPIRIN 81 MG CHEWABLE TABLET PO (08:06)
[2023-10-03] MEDS: ESCITALOPRAM OXALATE 10 MG TABLET PO (08:06)
--- NOTE | 2023-10-03 09:02 | PCPTNOTE ---
Pt is dependent at baseline (uses yuli lift). Hospitalist, Dr. Pina, made aware and OK removal of therapy orders.
--- NOTE | 2023-10-03 09:47 | PM.PNNEP ---
Progress Note: A&P Assessment and Plan (1) ARMIN (acute kidney injury): Code(s): N17.9 - Acute kidney failure, unspecified Status: Acute Assessment and Plan: elevated in comparison to admission HOWEVER, her creatinine has been this high before in the past suspect secondary to diuretics in the context of NSTEMI evaluation to date: urine electrolytes non-prerenal moderate proteinuria renal u/s consistent with CKD CPK normal follow trend of repeat labs and UOP (2) Chronic kidney disease, stage IV (severe): Code(s): N18.4 - Chronic kidney disease, stage 4 (severe) Status: Acute Assessment and Plan: baseline creatinine seems to run around 2.9 - 3.6mg/dl however, there are times where it has been as high as 4.0mg/dl range (with given need for diuresis) etiology of CKD is multifactorial: left over damage from ATN during her April 2023 hospitalization hypertension cardiomyopathy/depressed EF/cardiorenal syndrome with chronic need for diuretics CHACE/OHS Obesity/high BMI remains at risk for AIRBRUSH ARTIST PHOTOGRAPHY/dialysis in the near future (but I question if she would tolerate such an intervention)... (3) Acute non-ST elevation myocardial infarction (NSTEMI): Code(s): I21.4 - Non-ST elevation (NSTEMI) myocardial infarction Status: Acute Assessment and Plan: Cardiology following not a candidate for angiogram/catheterization optimize medical management (4) Hypertension: Qualifiers: Hypertension type: unspecified Qualified Code(s): I10 - Essential (primary) hypertension Code(s): I10 - Essential (primary) hypertension Status: Acute Assessment and Plan: reasonable control follow trend of hemodyamics (5) Acute respiratory failure with hypoxia and hypercapnia: Code(s): J96.01 - Acute respiratory failure with hypoxia; J96.02 - Acute respiratory failure with hypercapnia Status: Acute Assessment and Plan: clinical improvement noted no evidence of infection/pneumonia -- antibiotic d/c'd CHF/volume status seems relatively stable - on IV lasix almost 3.5L negative since admission however, complicated by asthma, COPD, and CHACE wean oxygen as tolerated (6) Anemia: Qualifiers: Anemia type: due to chronic kidney disease Chronic kidney disease stage: stage 3 (moderate) Code(s): D64.9 - Anemia, unspecified Status: Chronic Assessment and Plan: suspect secondary to CKD and acute illness follow trend of H/H consider ANA while hospitalized Will continue to follow. Subjective Date/time seen: 10/03/23 09:47 Interval history: Follow-up for acute kidney injury/acute renal failure on chronic kidney disease. No apparent distress or acute complaints voiced at the time of my visit; denies any shortness of breath and respiratory status seems fairly stable; renal function remains relatively stable by trend of labs and with IV diuretic use; no issues/events overnight or earlier this morning. Exam Narrative: General: large/obese female in NAD Heart: normal S1 and S2; no rub Lungs: coarse breath sounds Abdomen: soft, nontender, nondistended, positive bowel sounds Extremities: no cyanosis or clubbing; trace edema in LLE; s/p right AKA Skin: warm and intact Objective Data Vital Signs Vital Signs: Vital Signs Temp Pulse Resp BP Pulse Ox O2 Del Method O2 Flow Rate 10/03/23 08:00 82 10/03/23 08:00 98.2 F 84 20 157/77 H 99 10/03/23 08:21 96 Nasal Cannula 2 10/03/23 08:04 70 10/03/23 07:20 72 18 10/03/23 07:11 70 18 10/03/23 07:11 70 18 97 Nasal Cannula 2 10/03/23 02:43 73 20 96 BiPAP 10/03/23 02:53 75 20 10/02/23 23:20 80 19 95 BiPAP 10/03/23 02:43 73 20 10/03/23 04:00 97.7 F 73 20 106/54 L 100 10/03/23 04:00 80 10/03/23 00:00 78 0
--- NOTE | 2023-10-03 09:47 | P.PNNP_ITS ---
Progress Note: A&P Assessment and Plan (1) ARMIN (acute kidney injury): Code(s): N17.9 - Acute kidney failure, unspecified Status: Acute Assessment and Plan: * elevated in comparison to admission * HOWEVER, her creatinine has been this high before in the past * suspect secondary to diuretics in the context of NSTEMI * evaluation to date: * urine electrolytes non-prerenal * moderate proteinuria * renal u/s consistent with CKD * CPK normal * follow trend of repeat labs and UOP (2) Chronic kidney disease, stage IV (severe): Code(s): N18.4 - Chronic kidney disease, stage 4 (severe) Status: Acute Assessment and Plan: * baseline creatinine seems to run around 2.9 - 3.6mg/dl * however, there are times where it has been as high as 4.0mg/dl range (with given need for diuresis) * etiology of CKD is multifactorial: * left over damage from ATN during her April 2023 hospitalization * hypertension * cardiomyopathy/depressed EF/cardiorenal syndrome with chronic need for diuretics * CHACE/OHS * Obesity/high BMI * 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 (3) Acute non-ST elevation myocardial infarction (NSTEMI): Code(s): I21.4 - Non-ST elevation (NSTEMI) myocardial infarction Status: Acute Assessment and Plan: * Cardiology following * not a candidate for angiogram/catheterization * optimize medical management (4) Hypertension: Qualifiers: Hypertension type: unspecified Qualified Code(s): I10 - Essential (primary) hypertension Code(s): I10 - Essential (primary) hypertension Status: Acute Assessment and Plan: * reasonable control * follow trend of hemodyamics (5) Acute respiratory failure with hypoxia and hypercapnia: Code(s): J96.01 - Acute respiratory failure with hypoxia; J96.02 - Acute respiratory failure with hypercapnia Status: Acute Assessment and Plan: * clinical improvement noted * no evidence of infection/pneumonia -- antibiotic d/c'd * CHF/volume status seems relatively stable - on IV lasix * almost 3.5L negative since admission * however, complicated by asthma, COPD, and CHACE * wean oxygen as tolerated (6) Anemia: Qualifiers: Anemia type: due to chronic kidney disease Chronic kidney disease stage: stage 3 (moderate) Code(s): D64.9 - Anemia, unspecified Status: Chronic Assessment and Plan: * suspect secondary to CKD and acute illness * follow trend of H/H * consider ANA while hospitalized Will continue to follow. Subjective Date/time seen: 10/03/23 09:47 Interval history: Follow-up for acute kidney injury/acute renal failure on chronic kidney disease. No apparent distress or acute complaints voiced at the time of my visit; denies any shortness of breath and respiratory status seems fairly stable; renal function remains relatively stable by trend of labs and with IV diuretic use; no issues/events overnight or earlier this morning. Exam Narrative: General: large/obese female in NAD Heart: normal S1 and S2; no rub Lungs: coarse breath sounds Abdomen: soft, nontender, nondistended, positive bowel sounds Extremities: no cyanosis or clubbing; trace edema in LLE; s/p right AKA Skin: warm and intact Objective Data Vital Signs Vital Signs:
[2023-10-03] MEDS: SODIUM ZIRCONIUM CYCLOSILICATE 5 GM POWD.PACK PO ×2 (10:06→19:13)
[2023-10-03 10:12] LABS: Glucose Point of Care 100 mg/dl (65-105)
[2023-10-03 11:38] LABS: Glucose Point of Care 118 mg/dl (65-105)
[2023-10-03 16:35] LABS: Glucose Point of Care 130 mg/dl (65-105)
--- NOTE | 2023-10-03 16:40 | P.PNIM_ITS ---
Progress Note: A&P Assessment and Plan (1) Acute respiratory failure with hypoxia and hypercapnia: Code(s): J96.01 - Acute respiratory failure with hypoxia; J96.02 - Acute respiratory failure with hypercapnia Status: Acute Assessment and Plan: * Continue to treat underlying heart failure and wean oxygen as tolerated * Discontinue vancomycin and ampicillin-sulbactam as no clear evidence for pneumonia in the setting of NSTEMI and CHF (2) Acute on chronic systolic heart failure: Code(s): I50.23 - Acute on chronic systolic (congestive) heart failure Status: Acute Assessment and Plan: * Reduce furosemide from 80 to 40 bid due to increasing creatinine * Will transition to oral Lasix upon DC * Transfer to [facility] 09/30 (3) Chronic kidney disease: Qualifiers: Chronic kidney disease stage: stage 4 (severe) Qualified Code(s): N18.4 - Chronic kidney disease, stage 4 (severe) Code(s): N18.9 - Chronic kidney disease, unspecified Status: Acute Assessment and Plan: * Creatinine slightly above baseline of 3.3 at admision, 3.6 on 09/29, 4.1 on 09/30 & 10/01, 3.9 on 10/02 * May need to tolerate higher creatinine in order to treat CHF * Added sodium bicarbonate for metabolic acidosis which has now resolved * Patient given Lokelma for hyperkalemia which is now resolved * Stop Vanc and Unasyn 09/30 * Follow-up closely with Nephrology regarding worsening stage 4 CKD in the setting of severe ischemic cardiomyopathy with hyperkalemia and metabolic acidosis (4) Non-ST elevation [place] (NSTEMI): Code(s): I21.4 - Non-ST elevation (NSTEMI) myocardial infarction Status: Acute Assessment and Plan: * Discussed at length with curriculum consultant 09/29 * She is not a candidate for coronary intervention * Dual antiplatelet therapy and optimize therapy for congestive heart failure (5) Hyperglycemia: Code(s): R73.9 - Hyperglycemia, unspecified Status: Acute Assessment and Plan: * 248 at admission but euglycemic since * Hemoglobin A1c is 5.1% which rules out diabetes * Monitor patient closely * Fasting blood sugar remains stable (6) Leukocytosis: Code(s): D72.829 - Elevated white blood cell count, unspecified Status: Acute Assessment and Plan: * Suspect demargination due to acute hypoxia and superimposed effect of IV steroids given on 09/28 * 09/29 25.4k -> 09/30 13.2k -> 10/01 8.5 K ... Resolved Plan Follow-up closely with Cardiology and Nephrology for DC recommendations ? Patient seen and examined at bedside during my morning rounds ? Collaborated with patient's nurse at the bedside in detail and addressed all concerns ? Labs, electrolytes, radiology, investigations and test results reviewed ? Consult/Nursing/Ancilliary notes on the chart reviewed and appreciated ? Spoke with patient/family at the bedside and answered all the questions that they had Repeat labs in a.m. Electrolyte replacement as per protocol. Patient will be monitored very closely on the floor. Further recommendations as per the hospital course. Time Spent With Patient Time with patient: 15 - 25 minutes Subjective Date/time seen: 10/03/23 16:40 Interval history: Patient lying in bed morning rounds. Still feels weak and tired. Can lift out of the bed with Susanne lift only. Oxygen requirements dropped to 2 L per minute. Review of Systems Review of Systems: 14 systems were reviewed with pertinent positives and negatives per HPI. Except as documented in t
--- NOTE | 2023-10-03 16:40 | PM.IMPN ---
Progress Note: A&P Assessment and Plan (1) Acute respiratory failure with hypoxia and hypercapnia: Code(s): J96.01 - Acute respiratory failure with hypoxia; J96.02 - Acute respiratory failure with hypercapnia Status: Acute Assessment and Plan: Continue to treat underlying heart failure and wean oxygen as tolerated Discontinue vancomycin and ampicillin-sulbactam as no clear evidence for pneumonia in the setting of NSTEMI and CHF (2) Acute on chronic systolic heart failure: Code(s): I50.23 - Acute on chronic systolic (congestive) heart failure Status: Acute Assessment and Plan: Reduce furosemide from 80 to 40 bid due to increasing creatinine Will transition to oral Lasix upon DC Transfer to [facility] 09/30 (3) Chronic kidney disease: Qualifiers: Chronic kidney disease stage: stage 4 (severe) Qualified Code(s): N18.4 - Chronic kidney disease, stage 4 (severe) Code(s): N18.9 - Chronic kidney disease, unspecified Status: Acute Assessment and Plan: Creatinine slightly above baseline of 3.3 at admision, 3.6 on 09/29, 4.1 on 09/30 & 10/01, 3.9 on 10/02 May need to tolerate higher creatinine in order to treat CHF Added sodium bicarbonate for metabolic acidosis which has now resolved Patient given Lokelma for hyperkalemia which is now resolved Stop Vanc and Unasyn 09/30 Follow-up closely with Nephrology regarding worsening stage 4 CKD in the setting of severe ischemic cardiomyopathy with hyperkalemia and metabolic acidosis (4) Non-ST elevation [place] (NSTEMI): Code(s): I21.4 - Non-ST elevation (NSTEMI) myocardial infarction Status: Acute Assessment and Plan: Discussed at length with heritage consultant 09/29 She is not a candidate for coronary intervention Dual antiplatelet therapy and optimize therapy for congestive heart failure (5) Hyperglycemia: Code(s): R73.9 - Hyperglycemia, unspecified Status: Acute Assessment and Plan: 248 at admission but euglycemic since Hemoglobin A1c is 5.1% which rules out diabetes Monitor patient closely Fasting blood sugar remains stable (6) Leukocytosis: Code(s): D72.829 - Elevated white blood cell count, unspecified Status: Acute Assessment and Plan: Suspect demargination due to acute hypoxia and superimposed effect of IV steroids given on 09/28 09/29 25.4k -> 5/26 13.2k -> 10/01 8.5 K ... Resolved Plan Follow-up closely with Cardiology and Nephrology for DC recommendations ? Patient seen and examined at bedside during my morning rounds ? Collaborated with patient's nurse at the bedside in detail and addressed all concerns ? Labs, electrolytes, radiology, investigations and test results reviewed ? Consult/Nursing/Ancilliary notes on the chart reviewed and appreciated ? Spoke with patient/family at the bedside and answered all the questions that they had Repeat labs in a.m. Electrolyte replacement as per protocol. Patient will be monitored very closely on the floor. Further recommendations as per the hospital course. Time Spent With Patient Time with patient: 15 - 25 minutes Subjective Date/time seen: 10/03/23 16:40 Interval history: Patient lying in bed morning rounds. Still feels weak and tired. Can lift out of the bed with Susanne lift only. Oxygen requirements dropped to 2 L per minute. Review of Systems Review of Systems: 14 systems were reviewed with pertinent positives and negatives per HPI. Except as documented in the HPI/progress notes, all other systems were reviewed and are negative. All systems reviewed & are unremarkable except as noted in HPI and below Exam Narrative: HEENT: PERRL, sclerae nonicteric, pharyngeal mucosa pink. NECK: No JVD CHEST: Coarse breath sounds. NL effort. HEART: NL S1/S2, regular, no murmur ABDOMEN: BS+, soft, nontender, no mass, no bruits EXTREMITIES: No cyanosis, edema, or clubbing, NEUROLOGIC: CN intact and sy
[2023-10-03 20:47] LABS: Glucose Point of Care 127 mg/dl (65-105)
[2023-10-03] MEDS: ATORVASTATIN 40 MG TABLET 80 MG PO (21:22)
[2023-10-04] VITALS (17 sets, daily range): BP systolic 94–172; BP diastolic 50–85; PULSE 73–100; RESP 18–24; TEMP 36.6–37.1; O2SAT 76–100
[2023-10-04] MEDS: IPRATROPIUM 0.5 MG/ALBUTEROL SULFATE 2.5 MG AMPUL.NEB 3 ML INHALATION ×4 (02:04→20:57)
[2023-10-04] MEDS: ALBUTEROL SULFATE NEB 2.5 MG/3 ML INH INHALATION ×4 (02:04→20:57)
[2023-10-04 05:15] LABS: Hematocrit 26.9 % (37.0-47.0); Hemoglobin 8.1 g/dL (12.0-15.0); Mean Corpuscular HGB Conc 30.1 g/dl (32-36); Mean Corpuscular Volume 93.1 fl (80-100); Mean Platelet Volume 11.7 fl (7.4-10.4); Platelet Count Result 165 k/mm3 (150-375); Red Blood Count 2.89 M/mm3 (4.2-5.4); Red Cell Distribution Width 14.8 % (11.5-14.5)
[2023-10-04 05:28] LABS: Albumin Level 3.8 g/dL (3.5-5.1); Anion Gap 9 mmol/L (4-12); Blood Urea Nitrogen 61 mg/dL (7-17); Calcium 8.2 mg/dL (8.4-10.2); Carbon Dioxide 23 mmol/L (22-30); Chloride 106 mmol/L (98-107); Estimated CRCL calculation 21 ml/min; Estimated Glomerular Filt Rate 14; Glucose 95 mg/dL (65-110); Phosphorus 6.9 mg/dL (2.5-4.5); Potassium 4.6 mmol/L (3.4-5.0); Sodium 138 mmol/L (137-145)
[2023-10-04] MEDS: FUROSEMIDE INJ 40 MG/4 ML VIAL IV PUSH ×2 (08:06→17:20)
[2023-10-04] MEDS: HEPARIN SODIUM 5,000 UNITS/ML VIAL 5000 UNITS SUB-Q ×2 (08:06→20:00)
[2023-10-04 08:07] LABS: Glucose Point of Care 86 mg/dl (65-105)
[2023-10-04] MEDS: SODIUM BICARBONATE TAB 650 MG TABLET PO ×2 (08:07→17:21)
[2023-10-04] MEDS: CLOPIDOGREL BISULFATE 75 MG TABLET PO (08:07)
[2023-10-04] MEDS: ASPIRIN 81 MG CHEWABLE TABLET PO (08:07)
[2023-10-04] MEDS: ESCITALOPRAM OXALATE 10 MG TABLET PO (08:07)
[2023-10-04] MEDS: PANTOPRAZOLE 40 MG TABLET PO (08:07)
[2023-10-04] MEDS: SACUBITRIL/VALSARTAN 49-51 MG TABLET 1 TABLET PO ×2 (08:07→17:21)
[2023-10-04] MEDS: CALCIUM/VITAMIN D 500 MG/5 MCG (200 I.U.) TABLET 1000 MG PO (08:07)
[2023-10-04] MEDS: FERROUS SULFATE 325 MG TABLET DR PO ×2 (08:07→17:21)
[2023-10-04] MEDS: ISOSORBIDE MONONITRATE 30 MG TAB.ER.24H PO (08:07)
[2023-10-04] MEDS: carvediloL 25 MG TABLET PO ×2 (08:07→20:00)
[2023-10-04] MEDS: hydrALAZINE HCL 25 MG TABLET PO ×4 (08:07→20:00)
[2023-10-04] MEDS: SODIUM ZIRCONIUM CYCLOSILICATE 5 GM POWD.PACK PO ×2 (10:00→19:17)
[2023-10-04 10:17] LABS: Iron 43 ug/dL (37-170)
[2023-10-04 10:25] LABS: Percent Iron Saturation 26 % (20-50)
[2023-10-04 11:52] LABS: Glucose Point of Care 137 mg/dl (65-105)
--- NOTE | 2023-10-04 13:01 | PM.PNNEP ---
Progress Note: A&P Assessment and Plan (1) ARMIN (acute kidney injury): Code(s): N17.9 - Acute kidney failure, unspecified Status: Acute Assessment and Plan: elevated in comparison to admission HOWEVER, her creatinine has been as this high before in the past suspect secondary to diuretics in the context of NSTEMI evaluation to date: urine electrolytes non-prerenal moderate proteinuria renal u/s consistent with CKD CPK normal follow trend of repeat labs and UOP (2) Chronic kidney disease, stage IV (severe): Code(s): N18.4 - Chronic kidney disease, stage 4 (severe) Status: Acute Assessment and Plan: baseline creatinine seems to run around 2.9 - 3.6mg/dl however, there are times where it has been as high as 4.0mg/dl range (with given need for diuresis) etiology of CKD is multifactorial: left over damage from ATN during her April 2023 hospitalization hypertension cardiomyopathy/depressed EF/cardiorenal syndrome with chronic need for diuretics CHACE/OHS obesity/high BMI 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 (3) Acute non-ST elevation myocardial infarction (NSTEMI): Code(s): I21.4 - Non-ST elevation (NSTEMI) myocardial infarction Status: Acute Assessment and Plan: Cardiology following not a candidate for angiogram/catheterization optimize medical management (4) Hypertension: Qualifiers: Hypertension type: unspecified Qualified Code(s): I10 - Essential (primary) hypertension Code(s): I10 - Essential (primary) hypertension Status: Acute Assessment and Plan: reasonable control follow trend of hemodyamics (5) Acute respiratory failure with hypoxia and hypercapnia: Code(s): J96.01 - Acute respiratory failure with hypoxia; J96.02 - Acute respiratory failure with hypercapnia Status: Acute Assessment and Plan: clinical improvement noted no evidence of infection/pneumonia -- antibiotic d/c'd CHF/volume status seems relatively stable - on IV lasix almost 4L negative since admission transition to oral diuretics soon? however, complicated by asthma, COPD, and CHACE wean oxygen as tolerated (6) Anemia: Qualifiers: Anemia type: due to chronic kidney disease Chronic kidney disease stage: stage 3 (moderate) Code(s): D64.9 - Anemia, unspecified Status: Chronic Assessment and Plan: suspect secondary to CKD and acute illness follow trend of H/H consider ANA while hospitalized Will continue to follow. Subjective Date/time seen: 10/04/23 13:01 Interval history: Follow-up for acute kidney injury/acute renal failure on chronic kidney disease. Appears to be doing reasonably well at the time of my visit; no acute complaints voiced; no apparent distress noted; breathing/respiratory status seems stable; no issues/events overnight or earlier this morning; renal function holding relatively stable in spite of IV diuretic therapy. Exam Narrative: General: large/obese female in NAD Heart: normal S1 and S2; no rub Lungs: coarse breath sounds Abdomen: soft, nontender, nondistended, positive bowel sounds Extremities: no cyanosis or clubbing; trace edema in LLE; s/p right AKA Skin: no rash Objective Data Vital Signs Vital Signs: Vital Signs Temp Pulse Resp BP Pulse Ox O2 Del Method O2 Flow Rate 10/04/23 12:00 98.5 F 80 21 H 133/66 99 10/04/23 10:32 77 22 H 10/04/23 08:00 98.7 F 87 20 145/85 H 98 10/04/23 08:33 97 22 H 76 L Nasal Cannula 2 10/04/23 08:19 97 Nasal Cannula 2 10/04/23 08:07 76 10/04/23 04:00 73 10/04/23 04:00 97.9 F 77 20 100/50 L 100 10/04/23 02:14 79 20 10/04/23 02:04 77 18 10/04/23 02:04 77 18 BiPAP 10/04/23 00:00 98 F 88 20 94/52 L
--- NOTE | 2023-10-04 13:01 | P.PNNP_ITS ---
Progress Note: A&P Assessment and Plan (1) ARMIN (acute kidney injury): Code(s): N17.9 - Acute kidney failure, unspecified Status: Acute Assessment and Plan: * elevated in comparison to admission * HOWEVER, her creatinine has been as this high before in the past * suspect secondary to diuretics in the context of NSTEMI * evaluation to date: * urine electrolytes non-prerenal * moderate proteinuria * renal u/s consistent with CKD * CPK normal * follow trend of repeat labs and UOP (2) Chronic kidney disease, stage IV (severe): Code(s): N18.4 - Chronic kidney disease, stage 4 (severe) Status: Acute Assessment and Plan: * baseline creatinine seems to run around 2.9 - 3.6mg/dl * however, there are times where it has been as high as 4.0mg/dl range (with given need for diuresis) * etiology of CKD is multifactorial: * left over damage from ATN during her April 2023 hospitalization * hypertension * cardiomyopathy/depressed EF/cardiorenal syndrome with chronic need for diuretics * CHACE/OHS * obesity/high BMI * remains at risk for CONVALESCENT SITTER/dialysis in the near future (but I question if she would tolerate such an intervention)... (3) Acute non-ST elevation myocardial infarction (NSTEMI): Code(s): I21.4 - Non-ST elevation (NSTEMI) myocardial infarction Status: Acute Assessment and Plan: * Cardiology following * not a candidate for angiogram/catheterization * optimize medical management (4) Hypertension: Qualifiers: Hypertension type: unspecified Qualified Code(s): I10 - Essential (primary) hypertension Code(s): I10 - Essential (primary) hypertension Status: Acute Assessment and Plan: * reasonable control * follow trend of hemodyamics (5) Acute respiratory failure with hypoxia and hypercapnia: Code(s): J96.01 - Acute respiratory failure with hypoxia; J96.02 - Acute respiratory failure with hypercapnia Status: Acute Assessment and Plan: * clinical improvement noted * no evidence of infection/pneumonia -- antibiotic d/c'd * CHF/volume status seems relatively stable - on IV lasix * almost 4L negative since admission * transition to oral diuretics soon? * however, complicated by asthma, COPD, and CHACE * wean oxygen as tolerated (6) Anemia: Qualifiers: Anemia type: due to chronic kidney disease Chronic kidney disease stage: stage 3 (moderate) Code(s): D64.9 - Anemia, unspecified Status: Chronic Assessment and Plan: * suspect secondary to CKD and acute illness * follow trend of H/H * consider ANA while hospitalized Will continue to follow. Subjective Date/time seen: 10/04/23 13:01 Interval history: Follow-up for acute kidney injury/acute renal failure on chronic kidney disease. Appears to be doing reasonably well at the time of my visit; no acute complaints voiced; no apparent distress noted; breathing/respiratory status seems stable; no issues/events overnight or earlier this morning; renal function holding relatively stable in spite of IV diuretic therapy. Exam Narrative: General: large/obese female in NAD Heart: normal S1 and S2; no rub Lungs: coarse breath sounds Abdomen: soft, nontender, nondistended, positive bowel sounds Extremities: no cyanosis or clubbing; trace edema in LLE; s/p right AKA Skin: no rash Objective Data Vital Signs Vital Signs:
[2023-10-04 16:37] LABS: Glucose Point of Care 153 mg/dl (65-105)
--- NOTE | 2023-10-04 18:08 | P.PNIM_ITS ---
Progress Note: A&P Assessment and Plan (1) Acute respiratory failure with hypoxia and hypercapnia: Code(s): J96.01 - Acute respiratory failure with hypoxia; J96.02 - Acute respiratory failure with hypercapnia Status: Acute Assessment and Plan: * Continue to treat underlying heart failure and wean oxygen as tolerated * Discontinue vancomycin and ampicillin-sulbactam as no clear evidence for pneumonia in the setting of NSTEMI and CHF (2) Acute on chronic systolic heart failure: Code(s): I50.23 - Acute on chronic systolic (congestive) heart failure Status: Acute Assessment and Plan: * Reduce furosemide from 80 to 40 bid due to increasing creatinine * Will transition to oral Lasix upon DC * Transfer to [facility] 09/30 (3) Chronic kidney disease: Qualifiers: Chronic kidney disease stage: stage 4 (severe) Qualified Code(s): N18.4 - Chronic kidney disease, stage 4 (severe) Code(s): N18.9 - Chronic kidney disease, unspecified Status: Acute Assessment and Plan: * Creatinine slightly above baseline of 3.3 at admision, 3.6 on 09/29, 4.1 on 09/30 & 10/01, 3.9 on 10/02, 4.1 on 10/03 * May need to tolerate higher creatinine in order to treat CHF * Added sodium bicarbonate for metabolic acidosis which has now resolved * Patient given Lokelma for hyperkalemia which is now resolved * Stop Vanc and Unasyn 09/30 * Follow-up closely with Nephrology regarding worsening stage 4 CKD in the setting of severe ischemic cardiomyopathy with hyperkalemia and metabolic acidosis (4) Non-ST elevation [place] (NSTEMI): Code(s): I21.4 - Non-ST elevation (NSTEMI) myocardial infarction Status: Acute Assessment and Plan: * Discussed at length with practice management consultant 09/29 * She is not a candidate for coronary intervention * Dual antiplatelet therapy and optimize therapy for congestive heart failure (5) Hyperglycemia: Code(s): R73.9 - Hyperglycemia, unspecified Status: Acute Assessment and Plan: * 248 at admission but euglycemic since * Hemoglobin A1c is 5.1% which rules out diabetes * Monitor patient closely * Fasting blood sugar remains stable (6) Leukocytosis: Code(s): D72.829 - Elevated white blood cell count, unspecified Status: Acute Assessment and Plan: * Suspect demargination due to acute hypoxia and superimposed effect of IV stero ids given on 09/28 * 09/29 25.4k -> 09/30 13.2k -> 10/01 8.5 K ... Resolved Plan Follow-up closely with Cardiology and Nephrology for DC recommendations ? Patient seen and examined at bedside during my morning rounds ? Collaborated with patient's nurse at the bedside in detail and addressed all concerns ? Labs, electrolytes, radiology, investigations and test results reviewed ? Consult/Nursing/Ancilliary notes on the chart reviewed and appreciated ? Spoke with patient/family at the bedside and answered all the questions that they had Repeat labs in a.m. Electrolyte replacement as per protocol. Patient will be monitored very closely on the floor. Further recommendations as per the hospital course. Time Spent With Patient Time with patient: 15 - 25 minutes Subjective Date/time seen: 10/04/23 18:08 Interval history: Patient seen and examined at bedside. She is in a pleasant mood today and interacting well with the staff. No major complaints Review of Systems Review of Systems: 14 systems were reviewed with pertinent positives and negatives per HPI. Except as documented in the HPI/progress not
--- NOTE | 2023-10-04 18:08 | PM.IMPN ---
Progress Note: A&P Assessment and Plan (1) Acute respiratory failure with hypoxia and hypercapnia: Code(s): J96.01 - Acute respiratory failure with hypoxia; J96.02 - Acute respiratory failure with hypercapnia Status: Acute Assessment and Plan: Continue to treat underlying heart failure and wean oxygen as tolerated Discontinue vancomycin and ampicillin-sulbactam as no clear evidence for pneumonia in the setting of NSTEMI and CHF (2) Acute on chronic systolic heart failure: Code(s): I50.23 - Acute on chronic systolic (congestive) heart failure Status: Acute Assessment and Plan: Reduce furosemide from 80 to 40 bid due to increasing creatinine Will transition to oral Lasix upon DC Transfer to [facility] 09/30 (3) Chronic kidney disease: Qualifiers: Chronic kidney disease stage: stage 4 (severe) Qualified Code(s): N18.4 - Chronic kidney disease, stage 4 (severe) Code(s): N18.9 - Chronic kidney disease, unspecified Status: Acute Assessment and Plan: Creatinine slightly above baseline of 3.3 at admision, 3.6 on 09/29, 4.1 on 09/30 & 10/01, 3.9 on 10/02, 4.1 on 10/03 May need to tolerate higher creatinine in order to treat CHF Added sodium bicarbonate for metabolic acidosis which has now resolved Patient given Lokelma for hyperkalemia which is now resolved Stop Vanc and Unasyn 09/30 Follow-up closely with Nephrology regarding worsening stage 4 CKD in the setting of severe ischemic cardiomyopathy with hyperkalemia and metabolic acidosis (4) Non-ST elevation [place] (NSTEMI): Code(s): I21.4 - Non-ST elevation (NSTEMI) myocardial infarction Status: Acute Assessment and Plan: Discussed at length with direct sales consultant 09/29 She is not a candidate for coronary intervention Dual antiplatelet therapy and optimize therapy for congestive heart failure (5) Hyperglycemia: Code(s): R73.9 - Hyperglycemia, unspecified Status: Acute Assessment and Plan: 248 at admission but euglycemic since Hemoglobin A1c is 5.1% which rules out diabetes Monitor patient closely Fasting blood sugar remains stable (6) Leukocytosis: Code(s): D72.829 - Elevated white blood cell count, unspecified Status: Acute Assessment and Plan: Suspect demargination due to acute hypoxia and superimposed effect of IV steroids given on 09/28 09/29 25.4k -> 09/30 13.2k -> 10/01 8.5 K ... Resolved Plan Follow-up closely with Cardiology and Nephrology for DC recommendations ? Patient seen and examined at bedside during my morning rounds ? Collaborated with patient's nurse at the bedside in detail and addressed all concerns ? Labs, electrolytes, radiology, investigations and test results reviewed ? Consult/Nursing/Ancilliary notes on the chart reviewed and appreciated ? Spoke with patient/family at the bedside and answered all the questions that they had Repeat labs in a.m. Electrolyte replacement as per protocol. Patient will be monitored very closely on the floor. Further recommendations as per the hospital course. Time Spent With Patient Time with patient: 15 - 25 minutes Subjective Date/time seen: 10/04/23 18:08 Interval history: Patient seen and examined at bedside. She is in a pleasant mood today and interacting well with the staff. No major complaints Review of Systems Review of Systems: 14 systems were reviewed with pertinent positives and negatives per HPI. Except as documented in the HPI/progress notes, all other systems were reviewed and are negative. All systems reviewed & are unremarkable except as noted in HPI and below Exam Narrative: HEENT: PERRL, sclerae nonicteric, pharyngeal mucosa pink. NECK: No JVD CHEST: Coarse breath sounds. NL effort. HEART: NL S1/S2, regular, no murmur ABDOMEN: BS+, soft, nontender, no mass, no bruits EXTREMITIES: No cyanosis, edema, or clubbing, NEUROLOGIC: CN intact and symmetric to inspecti
[2023-10-04] MEDS: ATORVASTATIN 40 MG TABLET 80 MG PO (20:00)
[2023-10-04 21:10] LABS: Glucose Point of Care 108 mg/dl (65-105)
[2023-10-05] VITALS (22 sets, daily range): BP systolic 93–150; BP diastolic 60–77; PULSE 77–92; RESP 17–25; TEMP 36.3–37; O2SAT 98–100
[2023-10-05] MEDS: ALBUTEROL SULFATE NEB 2.5 MG/3 ML INH INHALATION ×2 (01:55→07:30)
[2023-10-05] MEDS: IPRATROPIUM 0.5 MG/ALBUTEROL SULFATE 2.5 MG AMPUL.NEB 3 ML INHALATION ×4 (01:59→20:12)
[2023-10-05 05:39] LABS: Hematocrit 27.3 % (37.0-47.0); Hemoglobin 8.2 g/dL (12.0-15.0); Mean Corpuscular Hemoglobin 27.7 pg (26-34); Mean Corpuscular Volume 92.2 fl (80-100); Mean Platelet Volume 10.4 fl (7.4-10.4); Platelet Count Result 162 k/mm3 (150-375); Red Blood Count 2.96 M/mm3 (4.2-5.4); Red Cell Distribution Width 14.6 % (11.5-14.5); White Blood Count 9.8 K/mm3 (4.5-10.0)
[2023-10-05 05:57] LABS: Albumin Level 3.8 g/dL (3.5-5.1); Anion Gap 9 mmol/L (4-12); Blood Urea Nitrogen 62 mg/dL (7-17); Calcium 8.3 mg/dL (8.4-10.2); Carbon Dioxide 26 mmol/L (22-30); Chloride 105 mmol/L (98-107); Estimated CRCL calculation 18 ml/min; Estimated Glomerular Filt Rate 12; Glucose 94 mg/dL (65-110); Phosphorus 6.3 mg/dL (2.5-4.5); Potassium 4.6 mmol/L (3.4-5.0); Sodium 140 mmol/L (137-145)
[2023-10-05 08:19] LABS: Glucose Point of Care 109 mg/dl (65-105)
[2023-10-05] MEDS: FERROUS SULFATE 325 MG TABLET DR PO ×2 (08:47→17:27)
[2023-10-05] MEDS: HEPARIN SODIUM 5,000 UNITS/ML VIAL 5000 UNITS SUB-Q ×2 (08:48→20:52)
[2023-10-05] MEDS: ASPIRIN 81 MG CHEWABLE TABLET PO (08:48)
[2023-10-05] MEDS: CLOPIDOGREL BISULFATE 75 MG TABLET PO (08:48)
[2023-10-05] MEDS: ESCITALOPRAM OXALATE 10 MG TABLET PO (08:48)
[2023-10-05] MEDS: CALCIUM/VITAMIN D 500 MG/5 MCG (200 I.U.) TABLET 1000 MG PO (08:48)
[2023-10-05] MEDS: carvediloL 25 MG TABLET PO ×2 (08:48→20:52)
[2023-10-05] MEDS: SACUBITRIL/VALSARTAN 49-51 MG TABLET 1 TABLET PO ×2 (08:49→17:27)
[2023-10-05] MEDS: hydrALAZINE HCL 25 MG TABLET PO ×4 (08:49→20:52)
[2023-10-05] MEDS: SODIUM BICARBONATE TAB 650 MG TABLET PO ×2 (08:49→17:28)
[2023-10-05] MEDS: PANTOPRAZOLE 40 MG TABLET PO (08:49)
[2023-10-05] MEDS: ISOSORBIDE MONONITRATE 30 MG TAB.ER.24H PO (08:49)
[2023-10-05 12:01] LABS: Glucose Point of Care 162 mg/dl (65-105)
[2023-10-05] MEDS: SODIUM ZIRCONIUM CYCLOSILICATE 5 GM POWD.PACK PO (12:07)
--- NOTE | 2023-10-05 13:42 | PM.PNNEP ---
Progress Note: A&P Assessment and Plan (1) ARMIN (acute kidney injury): Code(s): N17.9 - Acute kidney failure, unspecified Status: Acute Assessment and Plan: elevated in comparison to admission HOWEVER, her creatinine has been as this high before in the past suspect secondary to diuretics in the context of NSTEMI evaluation to date: urine electrolytes non-prerenal moderate proteinuria renal u/s consistent with CKD CPK normal follow trend of repeat labs and UOP (2) Chronic kidney disease, stage IV (severe): Code(s): N18.4 - Chronic kidney disease, stage 4 (severe) Status: Acute Assessment and Plan: baseline creatinine seems to run around 2.9 - 3.6mg/dl however, there are times where it has been as high as 4.0mg/dl range (with given need for diuresis) etiology of CKD is multifactorial: left over damage from ATN during her April 2023 hospitalization hypertension cardiomyopathy/depressed EF/cardiorenal syndrome with chronic need for diuretics CHACE/OHS obesity/high BMI remains at risk for ENVIRONMENTAL SAFETY SPECIALIST/dialysis in the near future (but I question if she would tolerate such an intervention)... (3) Acute non-ST elevation myocardial infarction (NSTEMI): Code(s): I21.4 - Non-ST elevation (NSTEMI) myocardial infarction Status: Acute Assessment and Plan: Cardiology following not a candidate for angiogram/catheterization optimize medical management (4) Acute respiratory failure with hypoxia and hypercapnia: Code(s): J96.01 - Acute respiratory failure with hypoxia; J96.02 - Acute respiratory failure with hypercapnia Status: Acute Assessment and Plan: clinical improvement noted no evidence of infection/pneumonia -- antibiotic d/c'd CHF/volume status seems relatively stable - on IV lasix almost 6L negative since admission transition to oral diuretics today however, complicated by asthma, COPD, and CHACE wean oxygen as tolerated (5) Hypertension: Qualifiers: Hypertension type: unspecified Qualified Code(s): I10 - Essential (primary) hypertension Code(s): I10 - Essential (primary) hypertension Status: Acute Assessment and Plan: reasonable control follow trend of hemodyamics (6) Anemia: Qualifiers: Anemia type: due to chronic kidney disease Chronic kidney disease stage: stage 3 (moderate) Code(s): D64.9 - Anemia, unspecified Status: Chronic Assessment and Plan: suspect secondary to CKD and acute illness follow trend of H/H consider ANA while hospitalized Would not be opposed to discharge from renal perspective if otherwise medically stable. Will continue to follow. Subjective Date/time seen: 10/05/23 13:42 Interval history: Follow-up for acute kidney injury/acute renal failure on chronic kidney disease. No apparent distress voiced at the time of my visit; breathing/respiratory status seems relatively stable; no other issues/events overnight or earlier this morning; creatinine/renal function a tad worse by AM labs noted today. Exam Narrative: General: large/obese female in NAD Heart: normal S1 and S2; no rub Lungs: coarse breath sounds Abdomen: soft, nontender, nondistended, positive bowel sounds Extremities: no cyanosis or clubbing; trace edema in LLE; s/p right AKA Skin: no nodules Objective Data Vital Signs Vital Signs: Vital Signs Temp Pulse Resp BP Pulse Ox O2 Del Method O2 Flow Rate 10/05/23 13:38 80 20 10/05/23 13:32 77 20 10/05/23 12:00 98.6 F 83 17 132/63 100 10/05/23 12:00 92 10/05/23 08:00 98 Nasal Cannula 2 10/05/23 08:00 81 10/05/23 08:48 84 10/05/23 08:47 150/77 H 10/05/23 07:44 83 20 10/05/23 07:30 84 20 10/05/23 07:30 98 Nasal Cannula 2 10/05/23 04:00 97.4 F L 84 18 93/65 L 100 10/05/23 04:0
--- NOTE | 2023-10-05 13:42 | P.PNNP_ITS ---
Progress Note: A&P Assessment and Plan (1) ARMIN (acute kidney injury): Code(s): N17.9 - Acute kidney failure, unspecified Status: Acute Assessment and Plan: * elevated in comparison to admission * HOWEVER, her creatinine has been as this high before in the past * suspect secondary to diuretics in the context of NSTEMI * evaluation to date: * urine electrolytes non-prerenal * moderate proteinuria * renal u/s consistent with CKD * CPK normal * follow trend of repeat labs and UOP (2) Chronic kidney disease, stage IV (severe): Code(s): N18.4 - Chronic kidney disease, stage 4 (severe) Status: Acute Assessment and Plan: * baseline creatinine seems to run around 2.9 - 3.6mg/dl * however, there are times where it has been as high as 4.0mg/dl range (with given need for diuresis) * etiology of CKD is multifactorial: * left over damage from ATN during her April 2023 hospitalization * hypertension * cardiomyopathy/depressed EF/cardiorenal syndrome with chronic need for diuretics * CHACE/OHS * obesity/high BMI * remains at risk for ORDER FILLER/dialysis in the near future (but I question if she would tolerate such an intervention)... (3) Acute non-ST elevation myocardial infarction (NSTEMI): Code(s): I21.4 - Non-ST elevation (NSTEMI) myocardial infarction Status: Acute Assessment and Plan: * Cardiology following * not a candidate for angiogram/catheterization * optimize medical management (4) Acute respiratory failure with hypoxia and hypercapnia: Code(s): J96.01 - Acute respiratory failure with hypoxia; J96.02 - Acute respiratory failure with hypercapnia Status: Acute Assessment and Plan: * clinical improvement noted * no evidence of infection/pneumonia -- antibiotic d/c'd * CHF/volume status seems relatively stable - on IV lasix * almost 6L negative since admission * transition to oral diuretics today * however, complicated by asthma, COPD, and CHACE * wean oxygen as tolerated (5) Hypertension: Qualifiers: Hypertension type: unspecified Qualified Code(s): I10 - Essential (primary) hypertension Code(s): I10 - Essential (primary) hypertension Status: Acute Assessment and Plan: * reasonable control * follow trend of hemodyamics (6) Anemia: Qualifiers: Anemia type: due to chronic kidney disease Chronic kidney disease stage: stage 3 (moderate) Code(s): D64.9 - Anemia, unspecified Status: Chronic Assessment and Plan: * suspect secondary to CKD and acute illness * follow trend of H/H * consider ANA while hospitalized Would not be opposed to discharge from renal perspective if otherwise medically stable. Will continue to follow. Subjective Date/time seen: 10/05/23 13:42 Interval history: Follow-up for acute kidney injury/acute renal failure on chronic kidney disease. No apparent distress voiced at the time of my visit; breathing/respiratory status seems relatively stable; no other issues/events overnight or earlier this morning; creatinine/renal function a tad worse by AM labs noted today. Exam Narrative: General: large/obese female in NAD Heart: normal S1 and S2; no rub Lungs: coarse breath sounds Abdomen: soft, nontender, nondistended, positive bowel sounds Extremities: no cyanosis or clubbing; trace edema in LLE; s/p right AKA Skin: no nodules Objective Data Vital Si
--- NOTE | 2023-10-05 16:46 | P.PNIM_ITS ---
Progress Note: A&P Assessment and Plan (1) Acute respiratory failure with hypoxia and hypercapnia: Code(s): J96.01 - Acute respiratory failure with hypoxia; J96.02 - Acute respiratory failure with hypercapnia Status: Acute Assessment and Plan: * Continue to treat underlying heart failure and wean oxygen as tolerated * Discontinue vancomycin and ampicillin-sulbactam as no clear evidence for pneumonia in the setting of NSTEMI and CHF (2) Acute on chronic systolic heart failure: Code(s): I50.23 - Acute on chronic systolic (congestive) heart failure Status: Acute Assessment and Plan: * Reduce furosemide from 80 to 40 bid due to increasing creatinine * Will transition to oral Lasix upon DC * Transfer to [facility] 09/30 (3) Chronic kidney disease: Qualifiers: Chronic kidney disease stage: stage 4 (severe) Qualified Code(s): N18.4 - Chronic kidney disease, stage 4 (severe) Code(s): N18.9 - Chronic kidney disease, unspecified Status: Acute Assessment and Plan: * Creatinine slightly above baseline of 3.3 at admision, 3.6 on 09/29, 4.1 on 09/30 & 10/01, 3.9 on 10/02, 4.1 on 10/03, 4.6 on 10/04 * May need to tolerate higher creatinine in order to treat CHF * Added sodium bicarbonate for metabolic acidosis which has now resolved * Patient given Lokelma for hyperkalemia which is now resolved * Stop Vanc and Unasyn 09/30 * Follow-up closely with Nephrology regarding worsening stage 4 CKD in the setting of severe ischemic cardiomyopathy with hyperkalemia and metabolic acidosis * Patient not a good candidate for long-term hemodialysis * Patient is started on oral diuretics by Nephrology to have some improvement in her renal functions (4) Non-ST elevation [place] (NSTEMI): Code(s): I21.4 - Non-ST elevation (NSTEMI) myocardial infarction Status: Acute Assessment and Plan: * Discussed at length with lean consultant 09/29 * She is not a candidate for coronary intervention * Dual antiplatelet therapy and optimize therapy for congestive heart failure (5) Hyperglycemia: Code(s): R73.9 - Hyperglycemia, unspecified Status: Acute Assessment and Plan: * 248 at admission but euglycemic since * Hemoglobin A1c is 5.1% which rules out diabetes * Monitor patient closely * Fasting blood sugar remains stable (6) Leukocytosis: Code(s): D72.829 - Elevated white blood cell count, unspecified Status: Acute Assessment and Plan: * Suspect demargination due to acute hypoxia and superimposed effect of IV steroids given on 09/28 * 09/29 25.4k -> 09/30 13.2k -> 10/01 8.5 K ... Resolved Plan Patient has bed available at nursing facility Follow-up closely with Cardiology and Nephrology for DC recommendations ? Patient seen and examined at bedside during my morning rounds ? Collaborated with patient's nurse at the bedside in detail and addressed all concerns ? Labs, electrolytes, radiology, investigations and test results reviewed ? Consult/Nursing/Ancilliary notes on the chart reviewed and appreciated ? Spoke with patient/family at the bedside and answered all the questions that they had Repeat labs in a.m. Electrolyte replacement as per protocol. Patient will be monitored very closely on the floor. Further recommendations as per the hospital course. Time Spent With Patient Time with patient: 15 - 25 minutes Subjective Date/time seen: 10/05/23 16:46 Interval history: Patient lying in bed during my morning rounds. Pleasant and cooperative. No acute complaints Review of Systems
--- NOTE | 2023-10-05 16:46 | PM.IMPN ---
Progress Note: A&P Assessment and Plan (1) Acute respiratory failure with hypoxia and hypercapnia: Code(s): J96.01 - Acute respiratory failure with hypoxia; J96.02 - Acute respiratory failure with hypercapnia Status: Acute Assessment and Plan: Continue to treat underlying heart failure and wean oxygen as tolerated Discontinue vancomycin and ampicillin-sulbactam as no clear evidence for pneumonia in the setting of NSTEMI and CHF (2) Acute on chronic systolic heart failure: Code(s): I50.23 - Acute on chronic systolic (congestive) heart failure Status: Acute Assessment and Plan: Reduce furosemide from 80 to 40 bid due to increasing creatinine Will transition to oral Lasix upon DC Transfer to [facility] 09/30 (3) Chronic kidney disease: Qualifiers: Chronic kidney disease stage: stage 4 (severe) Qualified Code(s): N18.4 - Chronic kidney disease, stage 4 (severe) Code(s): N18.9 - Chronic kidney disease, unspecified Status: Acute Assessment and Plan: Creatinine slightly above baseline of 3.3 at admision, 3.6 on 09/29, 4.1 on 09/30 & 10/01, 3.9 on 10/02, 4.1 on 10/03, 4.6 on 10/04 May need to tolerate higher creatinine in order to treat CHF Added sodium bicarbonate for metabolic acidosis which has now resolved Patient given Lokelma for hyperkalemia which is now resolved Stop Vanc and Unasyn 09/30 Follow-up closely with Nephrology regarding worsening stage 4 CKD in the setting of severe ischemic cardiomyopathy with hyperkalemia and metabolic acidosis Patient not a good candidate for long-term hemodialysis Patient is started on oral diuretics by Nephrology to have some improvement in her renal functions (4) Non-ST elevation [place] (NSTEMI): Code(s): I21.4 - Non-ST elevation (NSTEMI) myocardial infarction Status: Acute Assessment and Plan: Discussed at length with professional employer consultant 09/29 She is not a candidate for coronary intervention Dual antiplatelet therapy and optimize therapy for congestive heart failure (5) Hyperglycemia: Code(s): R73.9 - Hyperglycemia, unspecified Status: Acute Assessment and Plan: 248 at admission but euglycemic since Hemoglobin A1c is 5.1% which rules out diabetes Monitor patient closely Fasting blood sugar remains stable (6) Leukocytosis: Code(s): D72.829 - Elevated white blood cell count, unspecified Status: Acute Assessment and Plan: Suspect demargination due to acute hypoxia and superimposed effect of IV steroids given on 09/28 09/29 25.4k -> 09/30 13.2k -> 10/01 8.5 K ... Resolved Plan Patient has bed available at nursing facility Follow-up closely with Cardiology and Nephrology for DC recommendations ? Patient seen and examined at bedside during my morning rounds ? Collaborated with patient's nurse at the bedside in detail and addressed all concerns ? Labs, electrolytes, radiology, investigations and test results reviewed ? Consult/Nursing/Ancilliary notes on the chart reviewed and appreciated ? Spoke with patient/family at the bedside and answered all the questions that they had Repeat labs in a.m. Electrolyte replacement as per protocol. Patient will be monitored very closely on the floor. Further recommendations as per the hospital course. Time Spent With Patient Time with patient: 15 - 25 minutes Subjective Date/time seen: 10/05/23 16:46 Interval history: Patient lying in bed during my morning rounds. Pleasant and cooperative. No acute complaints Review of Systems Review of Systems: 14 systems were reviewed with pertinent positives and negatives per HPI. Except as documented in the HPI/progress notes, all other systems were reviewed and are negative. All systems reviewed & are unremarkable except as noted in HPI and below Exam Narrative: HEENT: PERRL, sclerae nonicteric, pharyngeal mucosa pink. NECK: No JVD CHEST: Coarse breath sounds. NL effort
[2023-10-05 17:15] LABS: Glucose Point of Care 122 mg/dl (65-105)
[2023-10-05] MEDS: BUMETANIDE 1 MG TABLET PO (17:27)
[2023-10-05] MEDS: EPOETIN ALFA-EPBX 20,000 UNITS/ML VIAL 20000 UNITS SUB-Q (18:24)
[2023-10-05] MEDS: ATORVASTATIN 40 MG TABLET 80 MG PO (20:52)
[2023-10-05 20:54] LABS: Glucose Point of Care 159 mg/dl (65-105)
[2023-10-06] VITALS (24 sets, daily range): BP systolic 100–152; BP diastolic 50–67; PULSE 66–90; RESP 16–20; TEMP 36.1–37; O2SAT 93–100
[2023-10-06] MEDS: IPRATROPIUM 0.5 MG/ALBUTEROL SULFATE 2.5 MG AMPUL.NEB 3 ML INHALATION ×4 (02:12→20:14)
[2023-10-06 05:22] LABS: Basophils Percent Auto 0.4 % (0.2-1.2); Eosinophils Absolute Auto 0.4 K/mm3 (0-0.3); Eosinophils Percent Auto 4.6 % (0-4.4); Hematocrit 27.6 % (37.0-47.0); Hemoglobin 8.4 g/dL (12.0-15.0); Immature Granulocyte Absolute 0.07 K/mm3 (0.00-0.031); Immature Granulocyte Percent A 0.9 % (0-0.5); Lymphocytes Absolute Auto 1.66 K/mm3 (0.9-3.2); Lymphocytes Percent Auto 21.1 % (18.3-44.2); Mean Corpuscular HGB Conc 30.4 g/dl (32-36); Mean Corpuscular Hemoglobin 28.2 pg (26-34); Mean Corpuscular Volume 92.6 fl (80-100); Mean Platelet Volume 10.3 fl (7.4-10.4); Monocytes Absolute Auto 0.7 K/mm3 (0.1-0.6); Monocytes Percent Auto 8.8 % (2.6-8.5); Neutrophils Absolute Auto 5.1 K/mm3 (1.3-6.7); Neutrophils Percent Auto 64.2 % (45.5-73.1); Platelet Count Result 165 k/mm3 (150-375); Red Blood Count 2.98 M/mm3 (4.2-5.4); Red Cell Distribution Width 14.5 % (11.5-14.5); White Blood Count 7.9 K/mm3 (4.5-10.0)
[2023-10-06 05:37] LABS: Alanine Aminotransferase 22 U/L (6-35); Albumin Level 3.7 g/dL (3.5-5.1); Alkaline Phosphatase 82 U/L (38-126); Anion Gap 7 mmol/L (4-12); Aspartate Amino Transferase 21 U/L (14-36); Bilirubin,Total 0.3 mg/dL (0.2-1.3); Blood Urea Nitrogen 63 mg/dL (7-17); Calcium 8.3 mg/dL (8.4-10.2); Carbon Dioxide 25 mmol/L (22-30); Chloride 105 mmol/L (98-107); Estimated CRCL calculation 19 ml/min; Estimated Glomerular Filt Rate 12; Glucose 110 mg/dL (65-110); Potassium 4.5 mmol/L (3.4-5.0); Sodium 137 mmol/L (137-145)
[2023-10-06 07:52] LABS: Glucose Point of Care 93 mg/dl (65-105)
[2023-10-06] MEDS: FERROUS SULFATE 325 MG TABLET DR PO ×2 (08:32→16:25)
[2023-10-06] MEDS: BUMETANIDE 1 MG TABLET PO ×2 (08:32→16:25)
[2023-10-06] MEDS: ASPIRIN 81 MG CHEWABLE TABLET PO (08:32)
[2023-10-06] MEDS: CLOPIDOGREL BISULFATE 75 MG TABLET PO (08:33)
[2023-10-06] MEDS: hydrALAZINE HCL 25 MG TABLET PO ×4 (08:33→21:58)
[2023-10-06] MEDS: carvediloL 25 MG TABLET PO ×2 (08:33→21:58)
[2023-10-06] MEDS: PANTOPRAZOLE 40 MG TABLET PO (08:33)
[2023-10-06] MEDS: ISOSORBIDE MONONITRATE 30 MG TAB.ER.24H PO (08:33)
[2023-10-06] MEDS: SODIUM BICARBONATE TAB 650 MG TABLET PO ×2 (08:33→16:25)
[2023-10-06] MEDS: CALCIUM/VITAMIN D 500 MG/5 MCG (200 I.U.) TABLET 1000 MG PO (08:33)
[2023-10-06] MEDS: ESCITALOPRAM OXALATE 10 MG TABLET PO (08:33)
[2023-10-06] MEDS: EPOETIN ALFA-EPBX 10,000 UNITS/ML VIAL 10000 UNITS SUB-Q (08:34)
[2023-10-06] MEDS: HEPARIN SODIUM 5,000 UNITS/ML VIAL 5000 UNITS SUB-Q ×2 (08:43→21:58)
[2023-10-06] MEDS: SACUBITRIL/VALSARTAN 49-51 MG TABLET 1 TABLET PO ×2 (08:45→16:25)
--- NOTE | 2023-10-06 11:17 | PCNWS ---
Weekly nutritional screen. Patient is tolerating current diet with adequate intake, 100% meals. No weight loss reported. No nutritional needs at this time.
[2023-10-06] MEDS: SODIUM ZIRCONIUM CYCLOSILICATE 5 GM POWD.PACK PO ×2 (11:49→20:06)
[2023-10-06 11:51] LABS: Glucose Point of Care 109 mg/dl (65-105)
--- NOTE | 2023-10-06 12:30 | P.PNNP_ITS ---
Progress Note: A&P Assessment and Plan (1) ARMIN (acute kidney injury): Code(s): N17.9 - Acute kidney failure, unspecified Status: Acute Assessment and Plan: * elevated in comparison to admission * HOWEVER, her creatinine has been as this high before in the past * suspect secondary to diuretics in the context of NSTEMI * evaluation to date: * urine electrolytes non-prerenal * moderate proteinuria * renal u/s consistent with CKD * CPK normal * follow trend of repeat labs and UOP (2) Chronic kidney disease, stage IV (severe): Code(s): N18.4 - Chronic kidney disease, stage 4 (severe) Status: Acute Assessment and Plan: * baseline creatinine seems to run around 2.9 - 3.6mg/dl * however, there are times where it has been as high as 4.0mg/dl range (with given need for diuresis) * etiology of CKD is multifactorial: * left over damage from ATN during her April 2023 hospitalization * hypertension * cardiomyopathy/depressed EF/cardiorenal syndrome with chronic need for diuretics * CHACE/OHS * obesity/high BMI * remains at risk for [facility] [employer]/dialysis in the near future (but I question if she would tolerate such an intervention)... (3) Acute non-ST elevation myocardial infarction (NSTEMI): Code(s): I21.4 - Non-ST elevation (NSTEMI) myocardial infarction Status: Acute Assessment and Plan: * Cardiology following * not a candidate for angiogram/catheterization * optimize medical management (4) Acute respiratory failure with hypoxia and hypercapnia: Code(s): J96.01 - Acute respiratory failure with hypoxia; J96.02 - Acute respiratory failure with hypercapnia Status: Acute Assessment and Plan: * clinical improvement noted * no evidence of infection/pneumonia -- antibiotic d/c'd * CHF/volume status seems relatively stable - on IV lasix * almost 6L negative since admission * transition to oral diuretics * however, complicated by asthma, COPD, and CHACE * wean oxygen as tolerated (5) Hypertension: Qualifiers: Hypertension type: unspecified Qualified Code(s): I10 - Essential (primary) hypertension Code(s): I10 - Essential (primary) hypertension Status: Acute Assessment and Plan: * reasonable control * follow trend of hemodyamics (6) Anemia: Qualifiers: Anemia type: due to chronic kidney disease Chronic kidney disease stage: stage 3 (moderate) Code(s): D64.9 - Anemia, unspecified Status: Chronic Assessment and Plan: * suspect secondary to CKD and acute illness * follow trend of H/H * on ANA while hospitalized Would not be opposed to discharge from renal perspective if otherwise medically stable. Will continue to follow. Subjective Date/time seen: 10/06/23 12:30 Interval history: Follow-up for acute kidney injury/acute renal failure on chronic kidney disease. Renal function about the same as yesterday by trend of labs; transitioned to oral diuretic therapy yesterday; no apparent distress noted at the time of my visit; no other acute complaints voiced; no events overnight or earlier this morning. Exam Narrative: General: large/obese female in NAD Heart: normal S1 and S2; no rub Lungs: coarse breath sounds Abdomen: soft, nontender, nondistended, positive bowel sounds Extremities: no cyanosis or clubbing; trace edema in LLE; s/p right AKA Skin: warm and dry Objective Data
--- NOTE | 2023-10-06 12:30 | PM.PNNEP ---
Progress Note: A&P Assessment and Plan (1) ARMIN (acute kidney injury): Code(s): N17.9 - Acute kidney failure, unspecified Status: Acute Assessment and Plan: elevated in comparison to admission HOWEVER, her creatinine has been as this high before in the past suspect secondary to diuretics in the context of NSTEMI evaluation to date: urine electrolytes non-prerenal moderate proteinuria renal u/s consistent with CKD CPK normal follow trend of repeat labs and UOP (2) Chronic kidney disease, stage IV (severe): Code(s): N18.4 - Chronic kidney disease, stage 4 (severe) Status: Acute Assessment and Plan: baseline creatinine seems to run around 2.9 - 3.6mg/dl however, there are times where it has been as high as 4.0mg/dl range (with given need for diuresis) etiology of CKD is multifactorial: left over damage from ATN during her April 2023 hospitalization hypertension cardiomyopathy/depressed EF/cardiorenal syndrome with chronic need for diuretics CHACE/OHS obesity/high BMI remains at risk for [employer]/dialysis in the near future (but I question if she would tolerate such an intervention)... (3) Acute non-ST elevation myocardial infarction (NSTEMI): Code(s): I21.4 - Non-ST elevation (NSTEMI) myocardial infarction Status: Acute Assessment and Plan: Cardiology following not a candidate for angiogram/catheterization optimize medical management (4) Acute respiratory failure with hypoxia and hypercapnia: Code(s): J96.01 - Acute respiratory failure with hypoxia; J96.02 - Acute respiratory failure with hypercapnia Status: Acute Assessment and Plan: clinical improvement noted no evidence of infection/pneumonia -- antibiotic d/c'd CHF/volume status seems relatively stable - on IV lasix almost 6L negative since admission transition to oral diuretics however, complicated by asthma, COPD, and CHACE wean oxygen as tolerated (5) Hypertension: Qualifiers: Hypertension type: unspecified Qualified Code(s): I10 - Essential (primary) hypertension Code(s): I10 - Essential (primary) hypertension Status: Acute Assessment and Plan: reasonable control follow trend of hemodyamics (6) Anemia: Qualifiers: Anemia type: due to chronic kidney disease Chronic kidney disease stage: stage 3 (moderate) Code(s): D64.9 - Anemia, unspecified Status: Chronic Assessment and Plan: suspect secondary to CKD and acute illness follow trend of H/H on ANA while hospitalized Would not be opposed to discharge from renal perspective if otherwise medically stable. Will continue to follow. Subjective Date/time seen: 10/06/23 12:30 Interval history: Follow-up for acute kidney injury/acute renal failure on chronic kidney disease. Renal function about the same as yesterday by trend of labs; transitioned to oral diuretic therapy yesterday; no apparent distress noted at the time of my visit; no other acute complaints voiced; no events overnight or earlier this morning. Exam Narrative: General: large/obese female in NAD Heart: normal S1 and S2; no rub Lungs: coarse breath sounds Abdomen: soft, nontender, nondistended, positive bowel sounds Extremities: no cyanosis or clubbing; trace edema in LLE; s/p right AKA Skin: warm and dry Objective Data Vital Signs Vital Signs: Vital Signs Temp Pulse Resp BP Pulse Ox O2 Del Method O2 Flow Rate 10/06/23 12:00 80 10/06/23 12:05 98.6 F 80 20 141/64 H 100 10/06/23 09:15 86 20 10/06/23 09:15 100 Nasal Cannula 2 10/06/23 08:10 97.9 F 79 20 139/64 100 10/06/23 08:33 86 10/06/23 08:30 138/59 L 10/06/23 04:00 97.8 F 74 18 100/55 L 100 10/06/23 04:00 73 10/06/23 02:20 72 18 10/06/23 02:12 77 18 98 BiPAP 10/06/23 02:12 77 1
--- NOTE | 2023-10-06 16:04 | P.PNIM_ITS ---
Progress Note: A&P Assessment and Plan (1) Acute respiratory failure with hypoxia and hypercapnia: Code(s): J96.01 - Acute respiratory failure with hypoxia; J96.02 - Acute respiratory failure with hypercapnia Status: Acute Assessment and Plan: * Continue to treat underlying heart failure and wean oxygen as tolerated * Discontinue vancomycin and ampicillin-sulbactam as no clear evidence for pneumonia in the setting of NSTEMI and CHF (2) Acute on chronic systolic heart failure: Code(s): I50.23 - Acute on chronic systolic (congestive) heart failure Status: Acute Assessment and Plan: * Reduce furosemide from 80 to 40 bid due to increasing creatinine * Transferred to [facility] 09/30 * Transitioned to oral bumetanide 1 mg p.o. b.i.d. by Nephrology (3) Chronic kidney disease: Qualifiers: Chronic kidney disease stage: stage 4 (severe) Qualified Code(s): N18.4 - Chronic kidney disease, stage 4 (severe) Code(s): N18.9 - Chronic kidney disease, unspecified Status: Acute Assessment and Plan: * Creatinine slightly above baseline of 3.3 at admision, 3.6 on 09/29, 4.1 on 09/30 & 10/01, 3.9 on 10/02, 4.1 on 10/03, 4.6 on 10/04, 4.5 on 10/05 * May need to tolerate higher creatinine in order to treat CHF * Added sodium bicarbonate for metabolic acidosis which has now resolved * Patient given Lokelma for hyperkalemia which is now resolved * Stop Vanc and Unasyn 09/30 * Follow-up closely with Nephrology regarding worsening stage 4 CKD in the setting of severe ischemic cardiomyopathy with hyperkalemia and metabolic acidosis * Patient not a good candidate for long-term hemodialysis * Patient is started on oral bumetanide by Nephrology to have some improvement in her renal functions (4) Non-ST elevation [place] (NSTEMI): Code(s): I21.4 - Non-ST elevation (NSTEMI) myocardial infarction Status: Acute Assessment and Plan: * Discussed at length with banking consultant 09/29 * She is not a candidate for coronary intervention * Dual antiplatelet therapy and optimize therapy for congestive heart failure (5) Hyperglycemia: Code(s): R73.9 - Hyperglycemia, unspecified Status: Acute Assessment and Plan: * 248 at admission but euglycemic since * Hemoglobin A1c is 5.1% which rules out diabetes * Monitor patient closely * Fasting blood sugar remains stable (6) Leukocytosis: Code(s): D72.829 - Elevated white blood cell count, unspecified Status: Acute Assessment and Plan: * Suspect demargination due to acute hypoxia and superimposed effect of IV steroids given on 09/28 * 09/29 25.4k -> 09/30 13.2k -> 10/01 8.5 K ... Resolved Plan Patient has bed available at nursing facility Patient cleared by Cardiology for discharge with close outpatient follow-up as per the recommendations Follow-up closely with Nephrology for DC recommendations ? Patient seen and examined at bedside during my morning rounds ? Collaborated with patient's nurse at the bedside in detail and addressed all concerns ? Labs, electrolytes, radiology, investigations and test results reviewed ? Consult/Nursing/Ancilliary notes on the chart reviewed and appreciated ? Spoke with patient/family at the bedside and answered all the questions that they had Repeat labs in a.m. Electrolyte replacement as per protocol. Patient will be monitored very closely on the floor. Further recommendations as per the hospital course. Time Spent With Patient Time with patient: 15 - 25 minutes Subjective Date/time seen: 10/06/23 16:04 Interval histo
--- NOTE | 2023-10-06 16:04 | PM.IMPN ---
Progress Note: A&P Assessment and Plan (1) Acute respiratory failure with hypoxia and hypercapnia: Code(s): J96.01 - Acute respiratory failure with hypoxia; J96.02 - Acute respiratory failure with hypercapnia Status: Acute Assessment and Plan: Continue to treat underlying heart failure and wean oxygen as tolerated Discontinue vancomycin and ampicillin-sulbactam as no clear evidence for pneumonia in the setting of NSTEMI and CHF (2) Acute on chronic systolic heart failure: Code(s): I50.23 - Acute on chronic systolic (congestive) heart failure Status: Acute Assessment and Plan: Reduce furosemide from 80 to 40 bid due to increasing creatinine Transferred to [email or web address] 09/30 Transitioned to oral bumetanide 1 mg p.o. b.i.d. by Nephrology (3) Chronic kidney disease: Qualifiers: Chronic kidney disease stage: stage 4 (severe) Qualified Code(s): N18.4 - Chronic kidney disease, stage 4 (severe) Code(s): N18.9 - Chronic kidney disease, unspecified Status: Acute Assessment and Plan: Creatinine slightly above baseline of 3.3 at admision, 3.6 on 09/29, 4.1 on 09/30 & 10/01, 3.9 on 10/02, 4.1 on 10/03, 4.6 on 10/04, 4.5 on 10/05 May need to tolerate higher creatinine in order to treat CHF Added sodium bicarbonate for metabolic acidosis which has now resolved Patient given Lokelma for hyperkalemia which is now resolved Stop Vanc and Unasyn 09/30 Follow-up closely with Nephrology regarding worsening stage 4 CKD in the setting of severe ischemic cardiomyopathy with hyperkalemia and metabolic acidosis Patient not a good candidate for long-term hemodialysis Patient is started on oral bumetanide by Nephrology to have some improvement in her renal functions (4) Non-ST elevation [place] (NSTEMI): Code(s): I21.4 - Non-ST elevation (NSTEMI) myocardial infarction Status: Acute Assessment and Plan: Discussed at length with service loss control consultant 09/29 She is not a candidate for coronary intervention Dual antiplatelet therapy and optimize therapy for congestive heart failure (5) Hyperglycemia: Code(s): R73.9 - Hyperglycemia, unspecified Status: Acute Assessment and Plan: 248 at admission but euglycemic since Hemoglobin A1c is 5.1% which rules out diabetes Monitor patient closely Fasting blood sugar remains stable (6) Leukocytosis: Code(s): D72.829 - Elevated white blood cell count, unspecified Status: Acute Assessment and Plan: Suspect demargination due to acute hypoxia and superimposed effect of IV steroids given on 09/28 09/29 25.4k -> 09/30 13.2k -> 10/01 8.5 K ... Resolved Plan Patient has bed available at nursing facility Patient cleared by Cardiology for discharge with close outpatient follow-up as per the recommendations Follow-up closely with Nephrology for DC recommendations ? Patient seen and examined at bedside during my morning rounds ? Collaborated with patient's nurse at the bedside in detail and addressed all concerns ? Labs, electrolytes, radiology, investigations and test results reviewed ? Consult/Nursing/Ancilliary notes on the chart reviewed and appreciated ? Spoke with patient/family at the bedside and answered all the questions that they had Repeat labs in a.m. Electrolyte replacement as per protocol. Patient will be monitored very closely on the floor. Further recommendations as per the hospital course. Time Spent With Patient Time with patient: 15 - 25 minutes Subjective Date/time seen: 10/06/23 16:04 Interval history: Patient seen and evaluated at bedside. Tolerating bumetanide. Cooperative with myself and nursing staff. Review of Systems Review of Systems: 14 systems were reviewed with pertinent positives and negatives per HPI. Except as documented in the HPI/progress notes, all other systems were reviewed and are negative. All systems reviewed & are unremarkable except as noted in HPI and
[2023-10-06 16:49] LABS: Glucose Point of Care 115 mg/dl (65-105)
[2023-10-06 20:43] LABS: Glucose Point of Care 111 mg/dl (65-105)
[2023-10-06] MEDS: ATORVASTATIN 40 MG TABLET 80 MG PO (21:58)
[2023-10-07] VITALS (19 sets, daily range): BP systolic 116–143; BP diastolic 46–93; PULSE 80–100; RESP 18–22; TEMP 36.6–37.6; O2SAT 98–100
[2023-10-07] MEDS: IPRATROPIUM 0.5 MG/ALBUTEROL SULFATE 2.5 MG AMPUL.NEB 3 ML INHALATION ×4 (01:54→20:51)
[2023-10-07 05:07] LABS: Basophils Absolute Auto 0.1 K/mm3 (0.0-0.1); Basophils Percent Auto 0.5 % (0.2-1.2); Eosinophils Absolute Auto 0.5 K/mm3 (0-0.3); Eosinophils Percent Auto 4.6 % (0-4.4); Hematocrit 27.7 % (37.0-47.0); Hemoglobin 8.3 g/dL (12.0-15.0); Immature Granulocyte Absolute 0.17 K/mm3 (0.00-0.031); Immature Granulocyte Percent A 1.7 % (0-0.5); Lymphocytes Absolute Auto 2.07 K/mm3 (0.9-3.2); Lymphocytes Percent Auto 21.1 % (18.3-44.2); Mean Corpuscular Hemoglobin 27.9 pg (26-34); Mean Corpuscular Volume 93.3 fl (80-100); Mean Platelet Volume 10.6 fl (7.4-10.4); Monocytes Absolute Auto 0.7 K/mm3 (0.1-0.6); Monocytes Percent Auto 7.3 % (2.6-8.5); Neutrophils Absolute Auto 6.4 K/mm3 (1.3-6.7); Neutrophils Percent Auto 64.8 % (45.5-73.1); Platelet Count Result 179 k/mm3 (150-375); Red Blood Count 2.97 M/mm3 (4.2-5.4); Red Cell Distribution Width 14.4 % (11.5-14.5); White Blood Count 9.8 K/mm3 (4.5-10.0)
[2023-10-07 05:19] LABS: Alanine Aminotransferase 22 U/L (6-35); Albumin Level 3.4 g/dL (3.5-5.1); Alkaline Phosphatase 81 U/L (38-126); Anion Gap 6 mmol/L (4-12); Aspartate Amino Transferase 22 U/L (14-36); Bilirubin,Total 0.3 mg/dL (0.2-1.3); Blood Urea Nitrogen 66 mg/dL (7-17); Calcium 8.4 mg/dL (8.4-10.2); Carbon Dioxide 25 mmol/L (22-30); Chloride 106 mmol/L (98-107); Estimated CRCL calculation 20 ml/min; Estimated Glomerular Filt Rate 13; Glucose 89 mg/dL (65-110); Potassium 5.1 mmol/L (3.4-5.0); Sodium 137 mmol/L (137-145)
[2023-10-07 08:02] LABS: Glucose Point of Care 94 mg/dl (65-105)
[2023-10-07] MEDS: PANTOPRAZOLE 40 MG TABLET PO (09:15)
[2023-10-07] MEDS: SACUBITRIL/VALSARTAN 49-51 MG TABLET 1 TABLET PO ×2 (09:15→16:54)
[2023-10-07] MEDS: ASPIRIN 81 MG CHEWABLE TABLET PO (09:15)
[2023-10-07] MEDS: ISOSORBIDE MONONITRATE 30 MG TAB.ER.24H PO (09:15)
[2023-10-07] MEDS: BUMETANIDE 1 MG TABLET PO ×2 (09:16→16:54)
[2023-10-07] MEDS: FERROUS SULFATE 325 MG TABLET DR PO ×2 (09:16→16:54)
[2023-10-07] MEDS: SODIUM BICARBONATE TAB 650 MG TABLET PO ×2 (09:16→16:54)
[2023-10-07] MEDS: CALCIUM/VITAMIN D 500 MG/5 MCG (200 I.U.) TABLET 1000 MG PO (09:16)
[2023-10-07] MEDS: hydrALAZINE HCL 25 MG TABLET PO ×4 (09:16→20:10)
[2023-10-07] MEDS: CLOPIDOGREL BISULFATE 75 MG TABLET PO (09:16)
[2023-10-07] MEDS: SODIUM ZIRCONIUM CYCLOSILICATE 5 GM POWD.PACK PO ×3 (09:16→16:55)
[2023-10-07] MEDS: HEPARIN SODIUM 5,000 UNITS/ML VIAL 5000 UNITS SUB-Q ×2 (09:16→20:09)
[2023-10-07] MEDS: ESCITALOPRAM OXALATE 10 MG TABLET PO (09:16)
[2023-10-07] MEDS: carvediloL 25 MG TABLET PO ×2 (09:16→20:10)
--- NOTE | 2023-10-07 10:53 | P.PNNP_ITS ---
Progress Note: A&P Assessment and Plan (1) ARMIN (acute kidney injury): Code(s): N17.9 - Acute kidney failure, unspecified Status: Acute Assessment and Plan: * slow improvement * elevated in comparison to admission * HOWEVER, her creatinine has been as this high before in the past (and it is possible this maybe a new baseline as well...) * suspect secondary to diuretics in the context of NSTEMI * evaluation to date: * urine electrolytes non-prerenal * moderate proteinuria * renal u/s consistent with CKD * CPK normal * follow trend of repeat labs and UOP (2) Chronic kidney disease, stage IV (severe): Code(s): N18.4 - Chronic kidney disease, stage 4 (severe) Status: Acute Assessment and Plan: * baseline creatinine seems to run around 2.9 - 3.6mg/dl * however, there are times where it has been as high as 4.0mg/dl range (with given need for diuresis) * etiology of CKD is multifactorial: * left over damage from ATN during her April 2023 hospitalization * hypertension * cardiomyopathy/depressed EF/cardiorenal syndrome with chronic need for diuretics * CHACE/OHS * obesity/high BMI * remains at risk for [facility]/dialysis in the near future (but I question if she would tolerate such an intervention)... (3) Acute non-ST elevation myocardial infarction (NSTEMI): Code(s): I21.4 - Non-ST elevation (NSTEMI) myocardial infarction Status: Acute Assessment and Plan: * Cardiology following * not a candidate for angiogram/catheterization * optimize medical management (4) Acute respiratory failure with hypoxia and hypercapnia: Code(s): J96.01 - Acute respiratory failure with hypoxia; J96.02 - Acute respiratory failure with hypercapnia Status: Acute Assessment and Plan: * clinical improvement noted * no evidence of infection/pneumonia -- antibiotic d/c'd * CHF/volume status seems relatively stable - on IV lasix * almost 6L negative since admission * transition to oral diuretics * however, complicated by asthma, COPD, and CHACE * wean oxygen as tolerated (5) Hypertension: Qualifiers: Hypertension type: unspecified Qualified Code(s): I10 - Essential (primary) hypertension Code(s): I10 - Essential (primary) hypertension Status: Acute Assessment and Plan: * reasonable control * follow trend of hemodyamics (6) Anemia: Qualifiers: Anemia type: due to chronic kidney disease Chronic kidney disease stage: stage 3 (moderate) Code(s): D64.9 - Anemia, unspecified Status: Chronic Assessment and Plan: * suspect secondary to CKD and acute illness * follow trend of H/H * on ANA while hospitalized Would not be opposed to discharge from renal perspective if otherwise medically stable. Will continue to follow. Subjective Date/time seen: 10/07/23 10:53 Interval history: Follow-up for acute kidney injury/acute renal failure on chronic kidney disease. Some improvement noted in renal function/creatinine as noted by AM labs; otherwise, she appears in no apparent distress on my visit; respiratory status/breathing seems stable if not better since admission; no other issues/events overnight or earlier this morning. Exam Narrative: General: large/obese female in NAD Heart: normal S1 and S2; no rub Lungs: clear anteriorly; coarse at bases Abdomen: soft, nontender, nondistended, positive bowel sounds Extremities: no
--- NOTE | 2023-10-07 10:53 | PM.PNNEP ---
Progress Note: A&P Assessment and Plan (1) ARMIN (acute kidney injury): Code(s): N17.9 - Acute kidney failure, unspecified Status: Acute Assessment and Plan: slow improvement elevated in comparison to admission HOWEVER, her creatinine has been as this high before in the past (and it is possible this maybe a new baseline as well...) suspect secondary to diuretics in the context of NSTEMI evaluation to date: urine electrolytes non-prerenal moderate proteinuria renal u/s consistent with CKD CPK normal follow trend of repeat labs and UOP (2) Chronic kidney disease, stage IV (severe): Code(s): N18.4 - Chronic kidney disease, stage 4 (severe) Status: Acute Assessment and Plan: baseline creatinine seems to run around 2.9 - 3.6mg/dl however, there are times where it has been as high as 4.0mg/dl range (with given need for diuresis) etiology of CKD is multifactorial: left over damage from ATN during her April 2023 hospitalization hypertension cardiomyopathy/depressed EF/cardiorenal syndrome with chronic need for diuretics CHACE/OHS obesity/high BMI remains at risk for [employer]/dialysis in the near future (but I question if she would tolerate such an intervention)... (3) Acute non-ST elevation myocardial infarction (NSTEMI): Code(s): I21.4 - Non-ST elevation (NSTEMI) myocardial infarction Status: Acute Assessment and Plan: Cardiology following not a candidate for angiogram/catheterization optimize medical management (4) Acute respiratory failure with hypoxia and hypercapnia: Code(s): J96.01 - Acute respiratory failure with hypoxia; J96.02 - Acute respiratory failure with hypercapnia Status: Acute Assessment and Plan: clinical improvement noted no evidence of infection/pneumonia -- antibiotic d/c'd CHF/volume status seems relatively stable - on IV lasix almost 6L negative since admission transition to oral diuretics however, complicated by asthma, COPD, and CHACE wean oxygen as tolerated (5) Hypertension: Qualifiers: Hypertension type: unspecified Qualified Code(s): I10 - Essential (primary) hypertension Code(s): I10 - Essential (primary) hypertension Status: Acute Assessment and Plan: reasonable control follow trend of hemodyamics (6) Anemia: Qualifiers: Anemia type: due to chronic kidney disease Chronic kidney disease stage: stage 3 (moderate) Code(s): D64.9 - Anemia, unspecified Status: Chronic Assessment and Plan: suspect secondary to CKD and acute illness follow trend of H/H on ANA while hospitalized Would not be opposed to discharge from renal perspective if otherwise medically stable. Will continue to follow. Subjective Date/time seen: 10/07/23 10:53 Interval history: Follow-up for acute kidney injury/acute renal failure on chronic kidney disease. Some improvement noted in renal function/creatinine as noted by AM labs; otherwise, she appears in no apparent distress on my visit; respiratory status/breathing seems stable if not better since admission; no other issues/events overnight or earlier this morning. Exam Narrative: General: large/obese female in NAD Heart: normal S1 and S2; no rub Lungs: clear anteriorly; coarse at bases Abdomen: soft, nontender, nondistended, positive bowel sounds Extremities: no cyanosis or clubbing; trace edema in LLE; s/p right AKA Skin: warm and intact Objective Data Vital Signs Vital Signs: Vital Signs Temp Pulse Resp BP Pulse Ox O2 Del Method O2 Flow Rate 10/07/23 08:00 Room Air 10/07/23 08:00 82 10/07/23 07:38 82 18 10/07/23 07:22 98 Room Air 10/07/23 07:21 80 18 10/07/23 06:09 98.2 F 87 18 135/74 100 10/07/23 04:00 97.8 F 85 18 125/66 100 10/07/23 04:00 86 10/07/23 02:01 81 21 H 99
[2023-10-07 11:34] LABS: Glucose Point of Care 107 mg/dl (65-105)
--- NOTE | 2023-10-07 12:19 | P.PNIM_ITS ---
Progress Note: A&P Assessment and Plan (1) Acute respiratory failure with hypoxia and hypercapnia: Code(s): J96.01 - Acute respiratory failure with hypoxia; J96.02 - Acute respiratory failure with hypercapnia Status: Acute Assessment and Plan: * Continue to treat underlying heart failure and wean oxygen as tolerated * Discontinue vancomycin and ampicillin-sulbactam as no clear evidence for pneumonia in the setting of NSTEMI and CHF (2) Acute on chronic systolic heart failure: Code(s): I50.23 - Acute on chronic systolic (congestive) heart failure Status: Acute Assessment and Plan: * Reduce furosemide from 80 to 40 bid due to increasing creatinine * Transferred to [facility] 09/30 * Transitioned to oral bumetanide 1 mg p.o. b.i.d. by Nephrology (3) Chronic kidney disease: Qualifiers: Chronic kidney disease stage: stage 4 (severe) Qualified Code(s): N18.4 - Chronic kidney disease, stage 4 (severe) Code(s): N18.9 - Chronic kidney disease, unspecified Status: Acute Assessment and Plan: * Creatinine slightly above baseline of 3.3 at admision, 3.6 on 09/29, 4.1 on 09/30 & 10/01, 3.9 on 10/02, 4.1 on 10/03, 4.6 on 10/04, 4.5 on 10/05, 4.3 on 10/06 * May need to tolerate higher creatinine in order to treat CHF * Added sodium bicarbonate for metabolic acidosis which has now resolved * Patient given Lokelma for hyperkalemia which is now resolved * Stop Vanc and Unasyn 09/30 * Follow-up closely with Nephrology regarding worsening stage 4 CKD in the setting of severe ischemic cardiomyopathy with hyperkalemia and metabolic acidosis * Patient not a good candidate for long-term hemodialysis * Patient is started on oral bumetanide by Nephrology to have some improvement in her renal functions * Renal functions slowly improving with mild downtrending of creatinine * Patient back to nursing facility once creatinine level is in 3's and patient is cleared by Nephrology for discharge (4) Non-ST elevation [place] (NSTEMI): Code(s): I21.4 - Non-ST elevation (NSTEMI) myocardial infarction Status: Acute Assessment and Plan: * Discussed at length with bank consultant 09/29 * She is not a candidate for coronary intervention * Dual antiplatelet therapy and optimize therapy for congestive heart failure (5) Hyperglycemia: Code(s): R73.9 - Hyperglycemia, unspecified Status: Acute Assessment and Plan: * 248 at admission but euglycemic since * Hemoglobin A1c is 5.1% which rules out diabetes * Monitor patient closely * Fasting blood sugar remains stable (6) Leukocytosis: Code(s): D72.829 - Elevated white blood cell count, unspecified Status: Acute Assessment and Plan: * Suspect demargination due to acute hypoxia and superimposed effect of IV steroids given on 09/28 * 09/29 25.4k -> 09/30 13.2k -> 10/01 8.5 K ... Resolved (7) Hyperkalemia: Code(s): E87.5 - Hyperkalemia Status: Acute Assessment and Plan: * Patient has minimal hyperkalemia with potassium level 5.1 * Given his CKD, hyperkalemia could be problematic and needs to be treated aggressively * Patient given Lokelma 5 mg oral x1dose * Monitor labs and electrolytes in a.m. Plan Patient has bed available at nursing facility Patient cleared by Cardiology for discharge with close outpatient follow-up as per the recommendations Follow-up closely with Nephrology for DC recommendations ? Patient seen and examined at bedside during my morning rounds ? Collaborated with patient's nurse at the bedside in detail and addressed all conc
--- NOTE | 2023-10-07 12:19 | PM.IMPN ---
Progress Note: A&P Assessment and Plan (1) Acute respiratory failure with hypoxia and hypercapnia: Code(s): J96.01 - Acute respiratory failure with hypoxia; J96.02 - Acute respiratory failure with hypercapnia Status: Acute Assessment and Plan: Continue to treat underlying heart failure and wean oxygen as tolerated Discontinue vancomycin and ampicillin-sulbactam as no clear evidence for pneumonia in the setting of NSTEMI and CHF (2) Acute on chronic systolic heart failure: Code(s): I50.23 - Acute on chronic systolic (congestive) heart failure Status: Acute Assessment and Plan: Reduce furosemide from 80 to 40 bid due to increasing creatinine Transferred to [facility] 09/30 Transitioned to oral bumetanide 1 mg p.o. b.i.d. by Nephrology (3) Chronic kidney disease: Qualifiers: Chronic kidney disease stage: stage 4 (severe) Qualified Code(s): N18.4 - Chronic kidney disease, stage 4 (severe) Code(s): N18.9 - Chronic kidney disease, unspecified Status: Acute Assessment and Plan: Creatinine slightly above baseline of 3.3 at admision, 3.6 on 09/29, 4.1 on 09/30 & 10/01, 3.9 on 10/02, 4.1 on 10/03, 4.6 on 10/04, 4.5 on 10/05, 4.3 on 10/06 May need to tolerate higher creatinine in order to treat CHF Added sodium bicarbonate for metabolic acidosis which has now resolved Patient given Lokelma for hyperkalemia which is now resolved Stop Vanc and Unasyn 09/30 Follow-up closely with Nephrology regarding worsening stage 4 CKD in the setting of severe ischemic cardiomyopathy with hyperkalemia and metabolic acidosis Patient not a good candidate for long-term hemodialysis Patient is started on oral bumetanide by Nephrology to have some improvement in her renal functions Renal functions slowly improving with mild downtrending of creatinine Patient back to nursing facility once creatinine level is in 3's and patient is cleared by Nephrology for discharge (4) Non-ST elevation [place] (NSTEMI): Code(s): I21.4 - Non-ST elevation (NSTEMI) myocardial infarction Status: Acute Assessment and Plan: Discussed at length with professional employer consultant 09/29 She is not a candidate for coronary intervention Dual antiplatelet therapy and optimize therapy for congestive heart failure (5) Hyperglycemia: Code(s): R73.9 - Hyperglycemia, unspecified Status: Acute Assessment and Plan: 248 at admission but euglycemic since Hemoglobin A1c is 5.1% which rules out diabetes Monitor patient closely Fasting blood sugar remains stable (6) Leukocytosis: Code(s): D72.829 - Elevated white blood cell count, unspecified Status: Acute Assessment and Plan: Suspect demargination due to acute hypoxia and superimposed effect of IV steroids given on 09/28 09/29 25.4k -> 09/30 13.2k -> 10/01 8.5 K ... Resolved (7) Hyperkalemia: Code(s): E87.5 - Hyperkalemia Status: Acute Assessment and Plan: Patient has minimal hyperkalemia with potassium level 5.1 Given his CKD, hyperkalemia could be problematic and needs to be treated aggressively Patient given Lokelma 5 mg oral x1dose Monitor labs and electrolytes in a.m. Plan Patient has bed available at nursing facility Patient cleared by Cardiology for discharge with close outpatient follow-up as per the recommendations Follow-up closely with Nephrology for DC recommendations ? Patient seen and examined at bedside during my morning rounds ? Collaborated with patient's nurse at the bedside in detail and addressed all concerns ? Labs, electrolytes, radiology, investigations and test results reviewed ? Consult/Nursing/Ancilliary notes on the chart reviewed and appreciated ? Spoke with patient/family at the bedside and answered all the questions that they had Repeat labs in a.m. Electrolyte replacement as per protocol. Patient will be monitored very closely on the floor. Further recommendations as per the ho
[2023-10-07 16:46] LABS: Glucose Point of Care 120 mg/dl (65-105)
[2023-10-07] MEDS: ATORVASTATIN 40 MG TABLET 80 MG PO (20:10)
[2023-10-07] MEDS: ACETAMINOPHEN 325 MG TABLET 650 MG PO (20:10)
[2023-10-07 21:03] LABS: Glucose Point of Care 194 mg/dl (65-105)
[2023-10-08] VITALS (18 sets, daily range): BP systolic 84–140; BP diastolic 55–75; PULSE 76–94; RESP 18–24; TEMP 36.3–37; O2SAT 96–100
[2023-10-08] MEDS: IPRATROPIUM 0.5 MG/ALBUTEROL SULFATE 2.5 MG AMPUL.NEB 3 ML INHALATION ×4 (02:06→19:53)
[2023-10-08 05:23] LABS: Basophils Percent Auto 0.2 % (0.2-1.2); Eosinophils Absolute Auto 0.3 K/mm3 (0-0.3); Eosinophils Percent Auto 3.7 % (0-4.4); Hemoglobin 8.5 g/dL (12.0-15.0); Immature Granulocyte Absolute 0.15 K/mm3 (0.00-0.031); Immature Granulocyte Percent A 1.9 % (0-0.5); Lymphocytes Absolute Auto 1.59 K/mm3 (0.9-3.2); Lymphocytes Percent Auto 19.8 % (18.3-44.2); Mean Corpuscular HGB Conc 29.3 g/dl (32-36); Mean Corpuscular Hemoglobin 28.3 pg (26-34); Mean Corpuscular Volume 96.7 fl (80-100); Monocytes Absolute Auto 0.6 K/mm3 (0.1-0.6); Neutrophils Absolute Auto 5.4 K/mm3 (1.3-6.7); Neutrophils Percent Auto 66.4 % (45.5-73.1); Platelet Count Result 195 k/mm3 (150-375); Red Cell Distribution Width 14.4 % (11.5-14.5); White Blood Count 8.1 K/mm3 (4.5-10.0)
[2023-10-08 05:42] LABS: Alanine Aminotransferase 23 U/L (6-35); Albumin Level 3.8 g/dL (3.5-5.1); Alkaline Phosphatase 82 U/L (38-126); Anion Gap 9 mmol/L (4-12); Aspartate Amino Transferase 23 U/L (14-36); Bilirubin,Total 0.3 mg/dL (0.2-1.3); Blood Urea Nitrogen 68 mg/dL (7-17); Calcium 8.5 mg/dL (8.4-10.2); Carbon Dioxide 25 mmol/L (22-30); Chloride 106 mmol/L (98-107); Estimated CRCL calculation 20 ml/min; Estimated Glomerular Filt Rate 13; Glucose 89 mg/dL (65-110); Potassium 4.9 mmol/L (3.4-5.0); Sodium 140 mmol/L (137-145)
[2023-10-08 07:48] LABS: Glucose Point of Care 93 mg/dl (65-105)
[2023-10-08] MEDS: SACUBITRIL/VALSARTAN 49-51 MG TABLET 1 TABLET PO ×2 (09:48→17:05)
[2023-10-08] MEDS: SODIUM BICARBONATE TAB 650 MG TABLET PO ×2 (09:48→17:05)
[2023-10-08] MEDS: CALCIUM/VITAMIN D 500 MG/5 MCG (200 I.U.) TABLET 1000 MG PO (09:48)
[2023-10-08] MEDS: FERROUS SULFATE 325 MG TABLET DR PO ×2 (09:48→17:04)
[2023-10-08] MEDS: BUMETANIDE 1 MG TABLET PO ×2 (09:48→17:04)
[2023-10-08] MEDS: ISOSORBIDE MONONITRATE 30 MG TAB.ER.24H PO (09:48)
[2023-10-08] MEDS: ASPIRIN 81 MG CHEWABLE TABLET PO (09:48)
[2023-10-08] MEDS: HEPARIN SODIUM 5,000 UNITS/ML VIAL 5000 UNITS SUB-Q ×2 (09:49→20:50)
[2023-10-08] MEDS: carvediloL 25 MG TABLET PO ×2 (09:49→20:51)
[2023-10-08] MEDS: CLOPIDOGREL BISULFATE 75 MG TABLET PO (09:49)
[2023-10-08] MEDS: PANTOPRAZOLE 40 MG TABLET PO (09:49)
[2023-10-08] MEDS: ESCITALOPRAM OXALATE 10 MG TABLET PO (09:49)
[2023-10-08] MEDS: hydrALAZINE HCL 25 MG TABLET PO ×4 (09:50→20:50)
--- NOTE | 2023-10-08 10:33 | PM.IMPN ---
Progress Note: A&P Assessment and Plan (1) Acute respiratory failure with hypoxia and hypercapnia: Code(s): J96.01 - Acute respiratory failure with hypoxia; J96.02 - Acute respiratory failure with hypercapnia Status: Acute Assessment and Plan: [place] to be secondary to CHF exacerbation CXR with diffuse bilateral interstitial and ground-glass opacities consistent with pulmonary edema Continue to wean supplemental oxygen. Currently requiring 2 L. Uses BiPAP at night (2) Acute on chronic systolic heart failure: Code(s): I50.23 - Acute on chronic systolic (congestive) heart failure Status: Acute Assessment and Plan: Appreciate cardiology consultation and recommendations Given her renal function, she has been continued on her usual diuretic dose. Continue Bumex 1 mg b.i.d. Continue to monitor volume status closely. No obvious signs of volume overload at this time (3) Non-ST elevation [place] (NSTEMI): Code(s): I21.4 - Non-ST elevation (NSTEMI) myocardial infarction Status: Acute Assessment and Plan: Appreciate cardiology consultation and recommendations She is not a candidate for coronary intervention given her significant comorbidities Continue with medication directed therapy Poor prognosis given low ejection fraction and comorbidities (4) ARMIN (acute kidney injury): Code(s): N17.9 - Acute kidney failure, unspecified Status: Acute Assessment and Plan: Creatinine elevated during admission up to 4.6 Baseline creatinine appears to be around 3.3-3.5 Likely related to need for diuretics Appreciate nephrology consultation and recommendations Creatinine remaining stable at this time at 4.3 Hopeful discharge in the next several days of creatinine remained stable/improves with plans for outpatient nephrology follow-up (5) Hyperglycemia: Code(s): R73.9 - Hyperglycemia, unspecified Status: Acute Assessment and Plan: 248 at admission but euglycemic since Hemoglobin A1c is 5.1% which rules out diabetes Fasting blood sugar today is 89 (6) Hyperkalemia: Code(s): E87.5 - Hyperkalemia Status: Acute Assessment and Plan: Potassium up to 5.8 during admission, received Lokelma with improvement Labs remain stable at this time. Potassium 4.9 today Continue to monitor daily BMP (7) Leukocytosis: Code(s): D72.829 - Elevated white blood cell count, unspecified Status: Acute Assessment and Plan: Resolved. Likely reactive secondary to acute hypoxia and worsened due to need for steroids WBC 8.1 today Subjective Date/time seen: 10/08/23 10:33 Interval history: Assuming care for Mirela today. She is not able to provide any reliable history. She will shake her head yes or no at times but not consistently. She is eating breakfast at the time of my evaluation. Review of Systems Review of Systems: All systems reviewed & are unremarkable except as noted in HPI and below Exam Narrative: General: Obese, chronically ill-appearing 52-year-old female, sitting up in bed, comfortable, NARD Neuro: awake, alert, not able to answer any orientation questions and provides no verbal responses HEENMT: normocephalic, atraumatic, EOMI, sclerae anicteric Respiratory: clear to auscultation anteriorly difficult to auscultate due to body habitus, nonlabored breathing Cardio: regular rate, regular rhythm with S1-S2 Abdomen: nondistended, normoactive bowel sounds, soft, nontender to palpation : Pastor catheter draining clear yellow urine Skin: no rashes or lesions, warm and dry Psych: Judgment and insight poor Objective Data Vital Signs Vital Signs: Vital Signs - 24 hr 10/07/23 11:35 10/07/23 14:19 10/07/23 14:28 Temperature 98.6 F Pulse Rate 82 80 85 Respiratory Rate 18 18 18 Blood Pressure 116/46 L Pulse Oximetry 100 Oxygen Delivery Oxygen Flow Rate Fraction of Inspired Oxygen
--- NOTE | 2023-10-08 12:01 | P.PNNP_ITS ---
Progress Note: A&P Assessment and Plan (1) ARMIN (acute kidney injury): Code(s): N17.9 - Acute kidney failure, unspecified Status: Acute Assessment and Plan: * slow improvement * elevated in comparison to admission * HOWEVER, her creatinine has been as this high before in the past (and it is possible this maybe a new baseline as well...) * suspect secondary to diuretics in the context of NSTEMI * evaluation to date: * urine electrolytes non-prerenal * moderate proteinuria * renal u/s consistent with CKD * CPK normal * follow trend of repeat labs and UOP (2) Chronic kidney disease, stage IV (severe): Code(s): N18.4 - Chronic kidney disease, stage 4 (severe) Status: Acute Assessment and Plan: * baseline creatinine seems to run around 2.9 - 3.6mg/dl * HOWEVER, there are times where it has been as high as 4.0mg/dl range (with given need for diuresis) * etiology of CKD is multifactorial: * left over damage from ATN during her April 2023 hospitalization * hypertension * cardiomyopathy/depressed EF/cardiorenal syndrome with chronic need for diuretics * CHACE/OHS * obesity/high BMI * 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 (3) Acute non-ST elevation myocardial infarction (NSTEMI): Code(s): I21.4 - Non-ST elevation (NSTEMI) myocardial infarction Status: Acute Assessment and Plan: * Cardiology following * not a candidate for angiogram/catheterization * optimize medical management (4) Acute respiratory failure with hypoxia and hypercapnia: Code(s): J96.01 - Acute respiratory failure with hypoxia; J96.02 - Acute respiratory failure with hypercapnia Status: Acute Assessment and Plan: * clinical improvement noted * no evidence of infection/pneumonia -- antibiotic d/c'd * CHF/volume status seems relatively stable - on IV lasix * almost 6L negative since admission * transition to oral diuretics * however, complicated by asthma, COPD, and CHACE * wean oxygen as tolerated (5) Hypertension: Qualifiers: Hypertension type: unspecified Qualified Code(s): I10 - Essential (primary) hypertension Code(s): I10 - Essential (primary) hypertension Status: Acute Assessment and Plan: * reasonable control * follow trend of hemodyamics (6) Anemia: Qualifiers: Anemia type: due to chronic kidney disease Chronic kidney disease stage: stage 3 (moderate) Code(s): D64.9 - Anemia, unspecified Status: Chronic Assessment and Plan: * suspect secondary to CKD and acute illness * follow trend of H/H * on ANA while hospitalized Would not be opposed to discharge from renal perspective if otherwise medically stable. Will continue to follow. Subjective Date/time seen: 10/08/23 12:01 Interval history: Follow-up for acute kidney injury/acute renal failure on chronic kidney disease. Renal function remains relatively stable at this time; no apparent distress noted at the time of my visit; nods head to simple yes/no questions (which is her baseline); no other issues/events overnight or earlier this morning. Exam Narrative: General: large/obese female in NAD Heart: normal S1 and S2; no rub Lungs: clear anteriorly; coarse at bases Abdomen: soft, nontender, nondistended, positive bowel sounds Extremities: no cyanosis or clubbing; trace edema in LLE;
--- NOTE | 2023-10-08 12:01 | PM.PNNEP ---
Progress Note: A&P Assessment and Plan (1) ARMIN (acute kidney injury): Code(s): N17.9 - Acute kidney failure, unspecified Status: Acute Assessment and Plan: slow improvement elevated in comparison to admission HOWEVER, her creatinine has been as this high before in the past (and it is possible this maybe a new baseline as well...) suspect secondary to diuretics in the context of NSTEMI evaluation to date: urine electrolytes non-prerenal moderate proteinuria renal u/s consistent with CKD CPK normal follow trend of repeat labs and UOP (2) Chronic kidney disease, stage IV (severe): Code(s): N18.4 - Chronic kidney disease, stage 4 (severe) Status: Acute Assessment and Plan: baseline creatinine seems to run around 2.9 - 3.6mg/dl HOWEVER, there are times where it has been as high as 4.0mg/dl range (with given need for diuresis) etiology of CKD is multifactorial: left over damage from ATN during her April 2023 hospitalization hypertension cardiomyopathy/depressed EF/cardiorenal syndrome with chronic need for diuretics CHACE/OHS obesity/high BMI 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 (3) Acute non-ST elevation myocardial infarction (NSTEMI): Code(s): I21.4 - Non-ST elevation (NSTEMI) myocardial infarction Status: Acute Assessment and Plan: Cardiology following not a candidate for angiogram/catheterization optimize medical management (4) Acute respiratory failure with hypoxia and hypercapnia: Code(s): J96.01 - Acute respiratory failure with hypoxia; J96.02 - Acute respiratory failure with hypercapnia Status: Acute Assessment and Plan: clinical improvement noted no evidence of infection/pneumonia -- antibiotic d/c'd CHF/volume status seems relatively stable - on IV lasix almost 6L negative since admission transition to oral diuretics however, complicated by asthma, COPD, and CHACE wean oxygen as tolerated (5) Hypertension: Qualifiers: Hypertension type: unspecified Qualified Code(s): I10 - Essential (primary) hypertension Code(s): I10 - Essential (primary) hypertension Status: Acute Assessment and Plan: reasonable control follow trend of hemodyamics (6) Anemia: Qualifiers: Anemia type: due to chronic kidney disease Chronic kidney disease stage: stage 3 (moderate) Code(s): D64.9 - Anemia, unspecified Status: Chronic Assessment and Plan: suspect secondary to CKD and acute illness follow trend of H/H on ANA while hospitalized Would not be opposed to discharge from renal perspective if otherwise medically stable. Will continue to follow. Subjective Date/time seen: 10/08/23 12:01 Interval history: Follow-up for acute kidney injury/acute renal failure on chronic kidney disease. Renal function remains relatively stable at this time; no apparent distress noted at the time of my visit; nods head to simple yes/no questions (which is her baseline); no other issues/events overnight or earlier this morning. Exam Narrative: General: large/obese female in NAD Heart: normal S1 and S2; no rub Lungs: clear anteriorly; coarse at bases Abdomen: soft, nontender, nondistended, positive bowel sounds Extremities: no cyanosis or clubbing; trace edema in LLE; s/p right AKA Skin: no rash Objective Data Vital Signs Vital Signs: Vital Signs Temp Pulse Resp BP Pulse Ox O2 Del Method O2 Flow Rate 10/08/23 12:00 80 10/08/23 08:35 86 98 Nasal Cannula 2 10/08/23 08:34 86 18 10/08/23 08:00 80 10/08/23 07:51 98.1 F 80 20 139/59 L 100 10/08/23 04:00 82 10/08/23 00:00 78 10/07/23 20:00 96 10/08/23 04:00 97.3 F L 76 18 116/75 100 10/08/23 02:16 80 20 96 BiPAP
[2023-10-08] MEDS: SODIUM ZIRCONIUM CYCLOSILICATE 5 GM POWD.PACK PO ×2 (12:24→18:51)
[2023-10-08 12:31] LABS: Glucose Point of Care 102 mg/dl (65-105)
[2023-10-08 17:07] LABS: Glucose Point of Care 164 mg/dl (65-105)
[2023-10-08] MEDS: ATORVASTATIN 40 MG TABLET 80 MG PO (20:51)
[2023-10-08] MEDS: ACETAMINOPHEN 325 MG TABLET 650 MG PO (20:51)
[2023-10-08 21:11] LABS: Glucose Point of Care 153 mg/dl (65-105)
[2023-10-09] VITALS (15 sets, daily range): BP systolic 136–164; BP diastolic 46–68; PULSE 72–89; RESP 17–22; TEMP 35.6–37; O2SAT 8–100
[2023-10-09] MEDS: IPRATROPIUM 0.5 MG/ALBUTEROL SULFATE 2.5 MG AMPUL.NEB 3 ML INHALATION ×4 (02:49→21:04)
[2023-10-09 05:33] LABS: Basophils Percent Auto 0.4 % (0.2-1.2); Eosinophils Absolute Auto 0.4 K/mm3 (0-0.3); Eosinophils Percent Auto 4.4 % (0-4.4); Hematocrit 27.7 % (37.0-47.0); Hemoglobin 8.2 g/dL (12.0-15.0); Immature Granulocyte Absolute 0.12 K/mm3 (0.00-0.031); Immature Granulocyte Percent A 1.5 % (0-0.5); Lymphocytes Absolute Auto 1.93 K/mm3 (0.9-3.2); Lymphocytes Percent Auto 24.4 % (18.3-44.2); Mean Corpuscular HGB Conc 29.6 g/dl (32-36); Mean Corpuscular Hemoglobin 27.6 pg (26-34); Mean Corpuscular Volume 93.3 fl (80-100); Mean Platelet Volume 10.2 fl (7.4-10.4); Monocytes Absolute Auto 0.6 K/mm3 (0.1-0.6); Monocytes Percent Auto 7.3 % (2.6-8.5); Neutrophils Absolute Auto 4.9 K/mm3 (1.3-6.7); Platelet Count Result 193 k/mm3 (150-375); Red Blood Count 2.97 M/mm3 (4.2-5.4); Red Cell Distribution Width 14.3 % (11.5-14.5); White Blood Count 7.9 K/mm3 (4.5-10.0)
[2023-10-09 05:47] LABS: Alanine Aminotransferase 22 U/L (6-35); Albumin Level 3.6 g/dL (3.5-5.1); Alkaline Phosphatase 82 U/L (38-126); Anion Gap 6 mmol/L (4-12); Aspartate Amino Transferase 21 U/L (14-36); Bilirubin,Total 0.2 mg/dL (0.2-1.3); Blood Urea Nitrogen 64 mg/dL (7-17); Calcium 8.3 mg/dL (8.4-10.2); Carbon Dioxide 27 mmol/L (22-30); Chloride 108 mmol/L (98-107); Estimated CRCL calculation 20 ml/min; Estimated Glomerular Filt Rate 14; Glucose 87 mg/dL (65-110); Potassium 4.4 mmol/L (3.4-5.0); Sodium 141 mmol/L (137-145)
--- NOTE | 2023-10-09 07:43 | PM.IMPN ---
Progress Note: A&P Assessment and Plan (1) Acute respiratory failure with hypoxia and hypercapnia: Code(s): J96.01 - Acute respiratory failure with hypoxia; J96.02 - Acute respiratory failure with hypercapnia Status: Acute Assessment and Plan: [place] to be secondary to CHF exacerbation CXR with diffuse bilateral interstitial and ground-glass opacities consistent with pulmonary edema Continue to wean supplemental oxygen. Currently requiring 2 L. Uses BiPAP at night (2) Acute on chronic systolic heart failure: Code(s): I50.23 - Acute on chronic systolic (congestive) heart failure Status: Acute Assessment and Plan: Appreciate cardiology consultation and recommendations Given her renal function, she has been continued on her usual diuretic dose. Continue Bumex 1 mg b.i.d. Continue to monitor volume status closely. No obvious signs of volume overload at this time -entresto, spironolactone, isosorbide, hydralazine, lasix, coreg, statin, asa (3) Non-ST elevation [place] (NSTEMI): Code(s): I21.4 - Non-ST elevation (NSTEMI) myocardial infarction Status: Acute Assessment and Plan: Appreciate cardiology consultation and recommendations She is not a candidate for coronary intervention given her significant comorbidities Continue with medication directed therapy Poor prognosis given low ejection fraction and comorbidities (4) ARMIN (acute kidney injury): Code(s): N17.9 - Acute kidney failure, unspecified Status: Acute Assessment and Plan: Creatinine elevated during admission up to 4.6 Baseline creatinine appears to be around 3.3-3.5 Appreciate nephrology consultation and recommendations Creatinine remaining stable at this time at 4.3 transitioned to oral diuretics- monitor I/O Hopeful discharge in the next several days of creatinine remained stable/improves with plans for outpatient nephrology follow-up (5) Hyperglycemia: Code(s): R73.9 - Hyperglycemia, unspecified Status: Acute Assessment and Plan: 248 at admission but euglycemic since Hemoglobin A1c is 5.1% which rules out diabetes (6) Hyperkalemia: Code(s): E87.5 - Hyperkalemia Status: Acute Assessment and Plan: Potassium up to 5.8 during admission, received Lokelma with improvement Labs remain stable at this time. Potassium 4.4 today 6/3 Continue to monitor daily BMP (7) Leukocytosis: Code(s): D72.829 - Elevated white blood cell count, unspecified Status: Acute Assessment and Plan: Resolved. Likely reactive secondary to acute hypoxia and worsened due to need for steroids WBC 7.9 today 10/08 Time Spent With Patient Time with patient: less than 15 minutes Subjective Date/time seen: 10/09/23 07:43 Interval history: H/P retrieved: 52-year-old female with a past medical history of intellectual disability, morbid obesity, obstructive sleep apnea, systolic heart failure with EF of 20 %, asthma/COPD overlap, chronic hypoxic respiratory failure, CVA, chronic subdural hematoma, essential hypertension, seizures and chronic kidney disease stage IV who presented to the ER via EMS from local [facility] due to respiratory distress. The patient had had an episode of what seemed like emesis a couple of days ago that was briefly followed by respiratory distress at then resolved. Then today she had another episode of emesis while eating dinner which the patient was able to clear on her own. However when the patient got back to her room she developed respiratory distress and staff suction her at the facility but the patient had more significant respiratory distress with respiratory rate in the 40s to 50s. She had oxygen saturations of 70% on her baseline 5 L home O2. She was receiving bag-valve mask respirations on arrival to the hospital but respiratory status improved after being placed on BiPAP. Mental status had improved enroute to the h
[2023-10-09 08:19] LABS: Glucose Point of Care 83 mg/dl (65-105)
[2023-10-09] MEDS: FERROUS SULFATE 325 MG TABLET DR PO ×2 (09:48→17:48)
[2023-10-09] MEDS: carvediloL 25 MG TABLET PO ×2 (09:48→21:04)
[2023-10-09] MEDS: ASPIRIN 81 MG CHEWABLE TABLET PO (09:48)
[2023-10-09] MEDS: hydrALAZINE HCL 25 MG TABLET PO ×4 (09:49→21:04)
[2023-10-09] MEDS: SACUBITRIL/VALSARTAN 49-51 MG TABLET 1 TABLET PO ×2 (09:49→17:48)
[2023-10-09] MEDS: CALCIUM/VITAMIN D 500 MG/5 MCG (200 I.U.) TABLET 1000 MG PO (09:49)
[2023-10-09] MEDS: BUMETANIDE 1 MG TABLET PO ×2 (09:49→17:48)
[2023-10-09] MEDS: SODIUM BICARBONATE TAB 650 MG TABLET PO ×2 (09:49→17:48)
[2023-10-09] MEDS: PANTOPRAZOLE 40 MG TABLET PO (09:49)
[2023-10-09] MEDS: CLOPIDOGREL BISULFATE 75 MG TABLET PO (09:49)
[2023-10-09] MEDS: ISOSORBIDE MONONITRATE 30 MG TAB.ER.24H PO (09:49)
[2023-10-09] MEDS: HEPARIN SODIUM 5,000 UNITS/ML VIAL 5000 UNITS SUB-Q ×2 (09:49→21:03)
[2023-10-09] MEDS: ESCITALOPRAM OXALATE 10 MG TABLET PO (09:49)
--- NOTE | 2023-10-09 09:57 | PC.NURSE ---
call to pharm for missing epo dose, they will send dose
[2023-10-09] MEDS: EPOETIN ALFA-EPBX 10,000 UNITS/ML VIAL 10000 UNITS SUB-Q (10:02)
--- NOTE | 2023-10-09 10:45 | P.PNNP_ITS ---
Progress Note: A&P Assessment and Plan (1) ARMIN (acute kidney injury): Code(s): N17.9 - Acute kidney failure, unspecified Status: Acute Assessment and Plan: * slow improvement * elevated in comparison to admission * HOWEVER, her creatinine has been as this high before in the past (and it is possible this maybe a new baseline as well...) * suspect secondary to diuretics in the context of NSTEMI * evaluation to date: * urine electrolytes non-prerenal * moderate proteinuria * renal u/s consistent with CKD * CPK normal * follow trend of repeat labs and UOP (2) Chronic kidney disease, stage IV (severe): Code(s): N18.4 - Chronic kidney disease, stage 4 (severe) Status: Acute Assessment and Plan: * baseline creatinine seems to run around 2.9 - 3.6mg/dl * HOWEVER, there are times where it has been as high as 4.0mg/dl range (with given need for diuresis) * etiology of CKD is multifactorial: * left over damage from ATN during her April 2023 hospitalization * hypertension * cardiomyopathy/depressed EF/cardiorenal syndrome with chronic need for diuretics * CHACE/OHS * obesity/high BMI * remains at risk for PUMPER GAGER/dialysis in the near future (but I question if she would tolerate such an intervention)... (3) Acute non-ST elevation myocardial infarction (NSTEMI): Code(s): I21.4 - Non-ST elevation (NSTEMI) myocardial infarction Status: Acute Assessment and Plan: * Cardiology following * not a candidate for angiogram/catheterization * optimize medical management (4) Acute respiratory failure with hypoxia and hypercapnia: Code(s): J96.01 - Acute respiratory failure with hypoxia; J96.02 - Acute respiratory failure with hypercapnia Status: Acute Assessment and Plan: * clinical improvement noted * no evidence of infection/pneumonia -- antibiotic d/c'd * CHF/volume status seems relatively stable - on IV lasix * almost 6L negative since admission * transition to oral diuretics * however, complicated by asthma, COPD, and CHACE * wean oxygen as tolerated (5) Hypertension: Qualifiers: Hypertension type: unspecified Qualified Code(s): I10 - Essential (primary) hypertension Code(s): I10 - Essential (primary) hypertension Status: Acute Assessment and Plan: * reasonable control * follow trend of hemodyamics (6) Anemia: Qualifiers: Anemia type: due to chronic kidney disease Chronic kidney disease stage: stage 3 (moderate) Code(s): D64.9 - Anemia, unspecified Status: Chronic Assessment and Plan: * suspect secondary to CKD and acute illness * follow trend of H/H * on ANA while hospitalized Would not be opposed to discharge from renal perspective if otherwise medically stable. Will continue to follow. Subjective Date/time seen: 10/09/23 10:45 Interval history: Follow-up for acute kidney injury/acute renal failure on chronic kidney disease. No apparent distress noted at this time; breathing/respiratory status seems relatively stable if not improved; renal function continues to slowly improve with current therapy/interventions; mentation also appears stable. Exam Narrative: General: large/obese female in NAD Heart: normal S1 and S2; no rub Lungs: clear anteriorly; coarse at bases Abdomen: soft, nontender, nondistended, positive bowel sounds Extremities: no cyanosis or clubbing; trace edema in LLE; s/p r
--- NOTE | 2023-10-09 10:45 | PM.PNNEP ---
Progress Note: A&P Assessment and Plan (1) ARMIN (acute kidney injury): Code(s): N17.9 - Acute kidney failure, unspecified Status: Acute Assessment and Plan: slow improvement elevated in comparison to admission HOWEVER, her creatinine has been as this high before in the past (and it is possible this maybe a new baseline as well...) suspect secondary to diuretics in the context of NSTEMI evaluation to date: urine electrolytes non-prerenal moderate proteinuria renal u/s consistent with CKD CPK normal follow trend of repeat labs and UOP (2) Chronic kidney disease, stage IV (severe): Code(s): N18.4 - Chronic kidney disease, stage 4 (severe) Status: Acute Assessment and Plan: baseline creatinine seems to run around 2.9 - 3.6mg/dl HOWEVER, there are times where it has been as high as 4.0mg/dl range (with given need for diuresis) etiology of CKD is multifactorial: left over damage from ATN during her April 2023 hospitalization hypertension cardiomyopathy/depressed EF/cardiorenal syndrome with chronic need for diuretics CHACE/OHS obesity/high BMI remains at risk for FORENSIC INVESTIGATOR/dialysis in the near future (but I question if she would tolerate such an intervention)... (3) Acute non-ST elevation myocardial infarction (NSTEMI): Code(s): I21.4 - Non-ST elevation (NSTEMI) myocardial infarction Status: Acute Assessment and Plan: Cardiology following not a candidate for angiogram/catheterization optimize medical management (4) Acute respiratory failure with hypoxia and hypercapnia: Code(s): J96.01 - Acute respiratory failure with hypoxia; J96.02 - Acute respiratory failure with hypercapnia Status: Acute Assessment and Plan: clinical improvement noted no evidence of infection/pneumonia -- antibiotic d/c'd CHF/volume status seems relatively stable - on IV lasix almost 6L negative since admission transition to oral diuretics however, complicated by asthma, COPD, and CHACE wean oxygen as tolerated (5) Hypertension: Qualifiers: Hypertension type: unspecified Qualified Code(s): I10 - Essential (primary) hypertension Code(s): I10 - Essential (primary) hypertension Status: Acute Assessment and Plan: reasonable control follow trend of hemodyamics (6) Anemia: Qualifiers: Anemia type: due to chronic kidney disease Chronic kidney disease stage: stage 3 (moderate) Code(s): D64.9 - Anemia, unspecified Status: Chronic Assessment and Plan: suspect secondary to CKD and acute illness follow trend of H/H on ANA while hospitalized Would not be opposed to discharge from renal perspective if otherwise medically stable. Will continue to follow. Subjective Date/time seen: 10/09/23 10:45 Interval history: Follow-up for acute kidney injury/acute renal failure on chronic kidney disease. No apparent distress noted at this time; breathing/respiratory status seems relatively stable if not improved; renal function continues to slowly improve with current therapy/interventions; mentation also appears stable. Exam Narrative: General: large/obese female in NAD Heart: normal S1 and S2; no rub Lungs: clear anteriorly; coarse at bases Abdomen: soft, nontender, nondistended, positive bowel sounds Extremities: no cyanosis or clubbing; trace edema in LLE; s/p right AKA Skin: no nodules Objective Data Vital Signs Vital Signs: Vital Signs Temp Pulse Resp BP Pulse Ox O2 Del Method O2 Flow Rate 10/09/23 09:48 80 10/09/23 08:00 98.6 F 80 21 H 164/59 H 100 10/09/23 08:00 82 10/09/23 07:17 77 20 10/09/23 07:07 72 18 10/09/23 07:07 72 18 98 High Flow Nasal Cannula 2 10/09/23 04:00 97.5 F L 79 20 145/64 H 100 10/09/23 04:00 82 10/09/23 00:00 97.9 F 79 20 136/54 L 100 10/08
[2023-10-09] MEDS: SODIUM ZIRCONIUM CYCLOSILICATE 5 GM POWD.PACK PO ×2 (12:05→19:59)
[2023-10-09 12:13] LABS: Glucose Point of Care 145 mg/dl (65-105)
[2023-10-09 17:16] LABS: Glucose Point of Care 103 mg/dl (65-105)
[2023-10-09 20:42] LABS: Glucose Point of Care 136 mg/dl (65-105)
[2023-10-09] MEDS: ACETAMINOPHEN 325 MG TABLET 650 MG PO (21:03)
[2023-10-09] MEDS: ATORVASTATIN 40 MG TABLET 80 MG PO (21:04)
[2023-10-10] VITALS (13 sets, daily range): BP systolic 113–165; BP diastolic 47–75; PULSE 64–89; RESP 16–21; TEMP 36.1–36.8; O2SAT 96–100
[2023-10-10] MEDS: IPRATROPIUM 0.5 MG/ALBUTEROL SULFATE 2.5 MG AMPUL.NEB 3 ML INHALATION ×3 (03:07→13:36)
[2023-10-10 06:01] LABS: Alanine Aminotransferase 23 U/L (6-35); Albumin Level 3.9 g/dL (3.5-5.1); Alkaline Phosphatase 88 U/L (38-126); Anion Gap 10 mmol/L (4-12); Aspartate Amino Transferase 23 U/L (14-36); Bilirubin,Total 0.4 mg/dL (0.2-1.3); Blood Urea Nitrogen 60 mg/dL (7-17); Calcium 8.5 mg/dL (8.4-10.2); Carbon Dioxide 21 mmol/L (22-30); Chloride 109 mmol/L (98-107); Estimated CRCL calculation 26 ml/min; Estimated Glomerular Filt Rate 18; Glucose 82 mg/dL (65-110); Potassium 4.5 mmol/L (3.4-5.0); Sodium 140 mmol/L (137-145)
[2023-10-10 08:10] LABS: Glucose Point of Care 93 mg/dl (65-105)
[2023-10-10 08:10] LABS: Basophils Percent Auto 0.5 % (0.2-1.2); Eosinophils Absolute Auto 0.4 K/mm3 (0-0.3); Eosinophils Percent Auto 4.5 % (0-4.4); Hematocrit 28.2 % (37.0-47.0); Hemoglobin 8.4 g/dL (12.0-15.0); Immature Granulocyte Absolute 0.12 K/mm3 (0.00-0.031); Immature Granulocyte Percent A 1.4 % (0-0.5); Lymphocytes Absolute Auto 1.63 K/mm3 (0.9-3.2); Lymphocytes Percent Auto 18.8 % (18.3-44.2); Mean Corpuscular HGB Conc 29.8 g/dl (32-36); Mean Corpuscular Hemoglobin 27.6 pg (26-34); Mean Corpuscular Volume 92.8 fl (80-100); Mean Platelet Volume 10.3 fl (7.4-10.4); Monocytes Absolute Auto 0.6 K/mm3 (0.1-0.6); Monocytes Percent Auto 7.3 % (2.6-8.5); Neutrophils Absolute Auto 5.8 K/mm3 (1.3-6.7); Neutrophils Percent Auto 67.5 % (45.5-73.1); Platelet Count Result 204 k/mm3 (150-375); Red Blood Count 3.04 M/mm3 (4.2-5.4); Red Cell Distribution Width 14.3 % (11.5-14.5); White Blood Count 8.7 K/mm3 (4.5-10.0)
[2023-10-10 08:49] LABS: Anisocytosis 1+; Platelet Estimate Adequate (Adequate); Schistocytes None Seen
[2023-10-10] MEDS: FERROUS SULFATE 325 MG TABLET DR PO ×2 (09:37→16:56)
[2023-10-10] MEDS: BUMETANIDE 1 MG TABLET PO ×2 (09:37→16:56)
[2023-10-10] MEDS: SODIUM BICARBONATE TAB 650 MG TABLET PO ×2 (09:37→16:56)
[2023-10-10] MEDS: HEPARIN SODIUM 5,000 UNITS/ML VIAL 5000 UNITS SUB-Q (09:37)
[2023-10-10] MEDS: CLOPIDOGREL BISULFATE 75 MG TABLET PO (09:37)
[2023-10-10] MEDS: carvediloL 25 MG TABLET PO (09:37)
[2023-10-10] MEDS: PANTOPRAZOLE 40 MG TABLET PO (09:37)
[2023-10-10] MEDS: hydrALAZINE HCL 25 MG TABLET PO ×3 (09:37→16:56)
[2023-10-10] MEDS: SACUBITRIL/VALSARTAN 49-51 MG TABLET 1 TABLET PO ×2 (09:37→16:56)
[2023-10-10] MEDS: ESCITALOPRAM OXALATE 10 MG TABLET PO (09:37)
[2023-10-10] MEDS: ISOSORBIDE MONONITRATE 30 MG TAB.ER.24H PO (09:37)
[2023-10-10] MEDS: ACETAMINOPHEN 325 MG TABLET 650 MG PO (09:38)
[2023-10-10] MEDS: CALCIUM/VITAMIN D 500 MG/5 MCG (200 I.U.) TABLET 1000 MG PO (09:38)
[2023-10-10] MEDS: ASPIRIN 81 MG CHEWABLE TABLET PO (09:38)
[2023-10-10] MEDS: SODIUM ZIRCONIUM CYCLOSILICATE 5 GM POWD.PACK PO (11:14)
[2023-10-10 11:41] LABS: Glucose Point of Care 143 mg/dl (65-105)
--- NOTE | 2023-10-10 14:11 | PM.DS ---
DS: Admitting Diagnosis Discharge Date 10/10/23 Admitting Diagnosis NSTEMI DS: Discharge Diagnosis Discharge Diagnosis (1) Chronic kidney disease, stage IV (severe): Code(s): N18.4 - Chronic kidney disease, stage 4 (severe) Status: Acute (2) Acute exacerbation of chronic obstructive airways disease: Code(s): J44.1 - Chronic obstructive pulmonary disease with (acute) exacerbation Status: Acute (3) Acid reflux: Code(s): K21.9 - Gastro-esophageal reflux disease without esophagitis Status: Acute (4) Hypertension: Qualifiers: Hypertension type: unspecified Qualified Code(s): I10 - Essential (primary) hypertension Code(s): I10 - Essential (primary) hypertension Status: Acute (5) Chronic kidney disease: Qualifiers: Chronic kidney disease stage: stage 4 (severe) Qualified Code(s): N18.4 - Chronic kidney disease, stage 4 (severe) Code(s): N18.9 - Chronic kidney disease, unspecified Status: Acute (6) Respiratory failure: Code(s): J96.90 - Respiratory failure, unspecified, unspecified whether with hypoxia or hypercapnia Status: Acute (7) Acute non-ST elevation myocardial infarction (NSTEMI): Code(s): I21.4 - Non-ST elevation (NSTEMI) myocardial infarction Status: Acute DS: Summary Hospital Course Reason for hospitalization: Dyspnea, NSTEMI Hospital Course: Patient is a 52-year-old female with past medical history events oxygen disability, morbid obesity, pectus sleep apnea, systolic heart failure with EF 20%, COPD/asthma, chronic hypoxic respiratory failure, chronic subdural hematoma, history of CVA, suggest attention, seizures gaze, CKD stage 4 presents to ED with respiratory distress. Patient was found to NSTEMI and Cardiology was consulted. Cardiology recommends medical management of NSTEMI as she is not an angiography candidate. Despite her history of chronic subdural hematoma she was placed on Plavix on top of her home baby aspirin. Patient is already on Lipitor 80 mg daily. During hospitalization patient also was diuresed 6L. Her baseline creatinine is around 2.9-3.6, at discharge creatinine came down to 3.3. Front End Software Engineer changed the p.o. Lasix 40 mg b.i.d. to 1 mg Bumex b.i.d.. With low diastolic blood pressure we have held home clonidine. At time of discharge patient's labs are stable, vitals stable, patient is stable for discharge to long term care at long term. Status at Discharge Cognitive/behavioral status at discharge: baseline, cognitive delay. Responds with yes and no Time Spent with Patient Time attestation: Total time spent providing and/or coordinating discharge services: 40 minutes Exam Narrative: - GENERAL: Pleasant obese woman in no acute distress, nonverbal - EYES: EOMI. Anicteric. - HENT: Moist mucous membranes. - LUNGS: Clear to auscultation bilaterally, no wheezing, breathing comfortably on 2 L oxygen by nasal cannula - CARDIOVASCULAR: Regular rate and rhythm. No murmur. No JVD. - ABDOMEN: Soft, non-tender and non-distended. No palpable masses. - EXTREMITIES: Peripheral pulses 2+. Non-tender. - NEUROLOGIC: No focal neurological deficits. CN II-XII grossly intact. - PSYCHIATRIC: Awake and alert. Appropriate mood and affect. responding with yes and no - SKIN: No rashes or lesions. Warm. DS: Data Data Completed and Pending Labs on day of discharge: Labs from last 24 hours 10/10/23 10/10/23 10/10/23 11:27 08:07 07:55 WBC 8.7 RBC 3.04 L Hgb 8.4 L Hct 28.2 L MCV 92.8 MCH 27.6 MCHC 29.8 L RDW 14.3 Plt Count 204 MPV 10.3 Immature Gran % (Auto) 1.4 H Neut % (Auto) 67.5 Lymph % (Auto) 18.8 [place] % (Auto) 7.3 Eos % (Auto) 4.5 H Baso % (Auto) 0.5 Lymph # (Auto) 1.63 [place] # (Auto) 0.6 Eos # (Auto) 0.4 H Baso # (Auto) 0.0 Abs Immat Gran (auto) 0.12 H Absolute Neuts (auto) 5.8 Absolute Nucleated RBC
--- NOTE | 2023-10-10 15:30 | PC.NURSE ---
report called to Leti at [facility]
[2023-10-10 15:46] LABS: SARS-CoV-2 RNA PCR Negative (Negative)
[2023-10-10 17:09] LABS: Glucose Point of Care 112 mg/dl (65-105)
== END 2023-10-10 17:26 | DRG 194 ==
LOC: ANHED 21:19 → ANHIMU 22:34 → ANH2MED 10-01 13:04
PROVIDERS: Family Medicine; Internal Medicine; Internal Medicine Nephrology; Admitting Provider Internal Medicine; Emergency Provider Student in an Organized Health Care Education/Training Program; PCP Hospitalist; Visit Provider Student in an Organized Health Care Education/Training Program
DX: I13.0 Hypertensive heart and chronic kidney disease with heart failure and stage 1 through stage 4 chronic kidney disease, or unspecified chronic kidney disease (principal); J96.22 Acute and chronic respiratory failure with hypercapnia; J96.21 Acute and chronic respiratory failure with hypoxia; I50.23 Acute on chronic systolic (congestive) heart failure; I21.4 Non-ST elevation (NSTEMI) myocardial infarction; Z20.822 Contact with and (suspected) exposure to COVID-19; F79 Unspecified intellectual disabilities; N18.4 Chronic kidney disease, stage 4 (severe); G47.33 Obstructive sleep apnea (adult) (pediatric); J44.1 Chronic obstructive pulmonary disease with (acute) exacerbation; E78.5 Hyperlipidemia, unspecified; E55.9 Vitamin D deficiency, unspecified; Z68.43 Body mass index [BMI] 50.0-59.9, adult; G40.909 Epilepsy, unspecified, not intractable, without status epilepticus; E66.2 Morbid (severe) obesity with alveolar hypoventilation; I25.5 Ischemic cardiomyopathy; N17.9 Acute kidney failure, unspecified; M19.011 Primary osteoarthritis, right shoulder; R73.9 Hyperglycemia, unspecified; E87.5 Hyperkalemia; I62.03 Nontraumatic chronic subdural hemorrhage; Z89.611 Acquired absence of right leg above knee; Z87.891 Personal history of nicotine dependence; Z86.73 Personal history of transient ischemic attack (TIA), and cerebral infarction without residual deficits; Z79.899 Other long term (current) drug therapy; Z79.82 Long term (current) use of aspirin
CPT/HCPCS: 36415; 36600; 71045; 76775; 80053; 80069; 81001; 82375; 82550; 82570; 82805; 82948; 83036; 83050; 83540; 83550; 83605; 83735; 83880; 84156; 84300; 84484; 84540; 85025; 85027; 85610; 85730; 87040; 87635; 87637; 87641; 93005; 93971; 94002; 94003; 94640; 96374; 96375; 99285; A9270; J0295; J0456; J0612; J0696; J1644; J1815; J1940; J2305; J2919; J3370; Q5105; Q5106

== ENCOUNTER 2023-11-04 11:49 | Emergency (ER) | payer BC, SELFPAY ==
--- NOTE | ~2023-11-04 | CT_ITS ---
EXAMINATION: CT chest abdomen pelvis wo con DATE: 11/04/2023 13:11 INDICATION: Level fall. Patient nonverbal. TECHNIQUE: Computed tomography (CT) of the chest, abdomen, and pelvis was performed without intraveno us contrast. Automated exposure control and iterative reconstruction technique were employed. The dos e-length product was 1805.32 mGy-cm. COMPARISON: None FINDINGS: CHEST CT: Mild emphysema. Mosaic attenuation in the lungs most likely related to partially expiratory phase of imaging with small areas of more lucent air trapping related to small airway disease. No septal line thickening to suggest pulmonary edema. No pneumonia or pleural effusion. Cardiomegaly with atheroscle rotic coronary artery calcific a cyst. No pericardial effusion. There is enlargement of the central p ulmonary arteries consistent with pulmonary arterial hypertension. Thoracic aorta is normal in calibe r. No pathologically enlarged thoracic lymphadenopathy. Minimal thoracic spondylosis. No acute osseou s abnormality. ABDOMEN/PELVIS CT: Large peripherally calcified gallstone in the otherwise normal-appearing gallbladder. Liver, spleen, pancreas, bilateral adrenal glands and kidneys are normal. There is mild scattered colonic diverticul osis without adjacent inflammatory stranding to suggest diverticulitis. Small bowel is normal. A few small calcified appendicoliths within the normal appendix with no periappendiceal inflammatory strand ing to suggest acute appendicitis. Pastor catheter in the decompressed bladder. The uterus is not iden tified and has likely been surgically resected. No free intraperitoneal gas or fluid. No pathological ly enlarged abdominal or pelvic lymphadenopathy. There is calcified atherosclerosis of the aorta and many of the other arteries. Mild bilateral hip and sacroiliac osteoarthritis. No acute osseous abnorm ality. IMPRESSION: 1. No acute osseous abnormality or acute intrathoracic, abdominal or pelvic process. 2. Mild emphysema. 3. Cardiomegaly. 4. Cholelithiasis. Reviewed, dictated and finalized at location A. IMPRESSION: 1. No acute osseous abnormality or acute intrathoracic, abdominal or pelvic pro cess. 2. Mild emphysema. 3. Cardiomegaly. 4. Cholelithiasis.
--- NOTE | ~2023-11-04 | CT_ITS ---
EXAMINATION: CT brain wo con DATE: 11/04/2023 13:11 INDICATION: Head trauma post ground-level fall. Patient nonverbal TECHNIQUE: Computed tomography (CT) of the head was performed without intravenous contrast. Sagittal and coronal reconstructions were performed. The mA was adjusted according to patient size. Iterative reconstruction technique was employed. The dose-length product was 605.33 mGy-cm. COMPARISON: head CT dated 06/10/23 FINDINGS: No fracture. Hyperostosis frontalis. Moderate sized region of encephalomalacia in the left frontal lo be. There is a small infarct at the head of the right caudate nucleus with associated ex vacuo dilati on of the anterior horn of the right frontal lobe. Ventricles are normal and symmetric. No acute intr acranial hemorrhage, acute infarction or abnormal extra axial fluid collection. No mass/mass effect. The orbits, paranasal sinuses and mastoid air cells are normal. IMPRESSION: 1. No fracture or acute intracranial process. 2. Moderate-sized old infarct in the right frontal lobe and small infarct at the head of the right ca udate nucleus. Reviewed, dictated and finalized at location A. IMPRESSION: 1. No fracture or acute intracranial process. 2. Moderate-sized old infarct in the right frontal lobe and small infarct at th e head of the right caudate nucleus.
[2023-11-04 11:49] VITALS: BP 141/48; PULSE 85; RESP 18; TEMP 36.7; O2SAT 99
--- NOTE | 2023-11-04 12:16 | ED.FALL ---
HPI - Fall General Chief Complaint: Fall Stated Complaint: ground level fall Time Seen by Provider: 11/04/23 11:50 History of Present Illness HPI Narrative: 53-year-old female presenting to the emergency department for evaluation for a ground level fall. Patient is nonverbal at baseline. Patient was able to communicate to EMS and staff that she was attempting to pivot in the bathroom when she fell and was found by staff. Upon arrival emergency department patient does complain abdominal pain. Patient did not communicate whether she hit her head or not. Patient does not appear to be in any distress. Related Data Home Medications Medication Instructions Recorded Confirmed acetaminophen 325 mg tablet 650 mg PO Q6H PRN Pain (Scale 08/26/21 09/30/23 (Tylenol) Score 1-3) aspirin 81 mg chewable tablet 81 mg PO DAILY 08/26/21 09/30/23 (Aspirin Childrens) atorvastatin 80 mg tablet (Lipitor) 80 mg PO HS 08/26/21 09/30/23 benzonatate 200 mg capsule 200 mg PO Q8H PRN Cough 08/26/21 09/30/23 calcium carb-vit D3-minerals 600 2 tablet PO DAILY 08/26/21 09/30/23 mg calcium-400 unit tablet ergocalciferol (vitamin D2) 1,250 50,000 unit PO WEEKLY 08/26/21 09/30/23 mcg (50,000 unit) capsule (Vitamin D2) ferrous sulfate 325 mg (65 mg 325 mg PO BID 08/26/21 09/30/23 iron) tablet isosorbide mononitrate 30 mg 30 mg PO DAILY 08/26/21 09/30/23 tablet,extended release 24 hr phenytoin 100 mg/4 mL oral 200 mg PO BID 08/26/21 09/30/23 suspension escitalopram oxalate 10 mg tablet 1 tablet PO DAILY 10/30/21 09/30/23 phenytoin 100 mg/4 mL oral 200 mg PO QPM 10/30/21 09/30/23 suspension spironolactone 25 mg tablet 1 tablet PO DAILY 10/30/21 09/30/23 nystatin 100,000 unit/gram topical 1 applic topical PRN PRN Rash to 05/27/23 09/30/23 powder abdominal folds and groin. sacubitril 49 mg-valsartan 51 mg 1 tablet PO BID 05/27/23 09/30/23 tablet (Entresto) B-complex with vitamin C 1 cap PO DAILY 09/30/23 09/30/23 carvedilol 25 mg tablet (Coreg) 25 mg PO BID 09/30/23 09/30/23 pantoprazole 40 mg tablet,delayed 40 mg PO DAILY 09/30/23 09/30/23 release Allergies Allergy/AdvReac Type Severity Reaction Status Date / Time No Known Allergies Allergy Verified 11/04/23 11:58 Review of Systems Review of Systems: All systems reviewed & are unremarkable except as noted in HPI and below PMFSH Past Medical History Medical History Angina pectoris Asthma-COPD overlap syndrome Cerebrovascular accident Chronic kidney disease Chronic subdural hematoma Congestive heart failure Echocardiogram in Apr showed left ventricular dilation with severe global systolic dysfunction with EF of 30%, diastolic noncompliance, left atrial enlarged, no obvious valve dysfunction however somewhat limited due to technically difficult exam due to body habitus. Gastroesophageal reflux disease Hyperlipidemia Hypertension Intellectual disability Iron deficiency anemia Major depressive disorder, recurrent, unspecified Morbid obesity Seizure Vitamin D deficiency Surgical History Surgical History History of right above knee amputation Family History Family History Father Congestive heart failure Hypertension Mother Congestive heart failure Hypertension Social History Social History Social History: Surrogate decision maker: Laxmi Marrero, aunt. Code status: Full code per facility documentation Smoking packs per day: 1 Smoking cigarettes per day: 20.0 Years smoked: 20 Smoking pack-years: 20.00 Smoking status: Former smoker Tobacco type: cigarettes Second hand tobacco smoke exposure: No Smoking end date: 02/06/23 Alcohol intake: never Substance use: never Substance use type: does not use [employer]
[2023-11-04 12:30] LABS: Basophils Percent Auto 0.4 % (0.2-1.2); Eosinophils Absolute Auto 0.5 K/mm3 (0-0.3); Eosinophils Percent Auto 4.8 % (0-4.4); Hematocrit 31.7 % (37.0-47.0); Hemoglobin 9.5 g/dL (12.0-15.0); Immature Granulocyte Absolute 0.04 K/mm3 (0.00-0.031); Immature Granulocyte Percent A 0.4 % (0-0.5); Lymphocytes Percent Auto 14.4 % (18.3-44.2); Mean Corpuscular Hemoglobin 28.3 pg (26-34); Mean Corpuscular Volume 94.3 fl (80-100); Mean Platelet Volume 11.1 fl (7.4-10.4); Monocytes Absolute Auto 0.5 K/mm3 (0.1-0.6); Monocytes Percent Auto 5.3 % (2.6-8.5); Neutrophils Absolute Auto 7.3 K/mm3 (1.3-6.7); Neutrophils Percent Auto 74.7 % (45.5-73.1); Platelet Count Result 243 k/mm3 (150-375); Red Blood Count 3.36 M/mm3 (4.2-5.4); Red Cell Distribution Width 15.3 % (11.5-14.5); White Blood Count 9.7 K/mm3 (4.5-10.0)
[2023-11-04 12:44] LABS: Alanine Aminotransferase 36 U/L (6-35); Albumin Level 4.1 g/dL (3.5-5.1); Alkaline Phosphatase 108 U/L (38-126); Anion Gap 12 mmol/L (4-12); Aspartate Amino Transferase 33 U/L (14-36); Bilirubin,Total 0.4 mg/dL (0.2-1.3); Blood Urea Nitrogen 49 mg/dL (7-17); Calcium 8.7 mg/dL (8.4-10.2); Carbon Dioxide 16 mmol/L (22-30); Chloride 121 mmol/L (98-107); Estimated Glomerular Filt Rate 15; Glucose 187 mg/dL (65-110); Potassium 5.2 mmol/L (3.4-5.0); Sodium 149 mmol/L (137-145)
--- NOTE | 2023-11-04 12:56 | PC.NURSE ---
Pt to CT at this time.
[2023-11-04] MEDS: SODIUM ZIRCONIUM CYCLOSILICATE 10 GM POWD.PACK PO (13:13)
[2023-11-04 13:38] VITALS: BP 101/80; PULSE 75; RESP 20; O2SAT 100
[2023-11-04 14:14] VITALS: BP 160/78; PULSE 89; RESP 20; O2SAT 98
[2023-11-04 15:43] VITALS: BP 152/106; PULSE 90; RESP 21; O2SAT 100
[2023-11-04 16:30] VITALS: BP 160/78; PULSE 95; RESP 16; O2SAT 98
== END 2023-11-04 18:37 ==
PROVIDERS: Emergency Provider Emergency Medicine; PCP Hospitalist
DX: R10.9 Unspecified abdominal pain (principal); J44.9 Chronic obstructive pulmonary disease, unspecified; I13.0 Hypertensive heart and chronic kidney disease with heart failure and stage 1 through stage 4 chronic kidney disease, or unspecified chronic kidney disease; N18.9 Chronic kidney disease, unspecified; I50.9 Heart failure, unspecified; F32.A Depression, unspecified; W18.30XA Fall on same level, unspecified, initial encounter
CPT/HCPCS: 36415; 70450; 71250; 74176; 80053; 85025; 99284; A9270

== ENCOUNTER 2023-11-24 09:56 | Inpatient (IN) | payer BC, SELFPAY ==
[2023-11-24] VITALS (20 sets, daily range): BP systolic 118–142; BP diastolic 58–97; PULSE 74–95; RESP 12–26; TEMP 36.4–37; O2SAT 95–100; BMI 44.6
--- NOTE | ~2023-11-24 | XR_ITS ---
EXAMINATION: XR chest 2V 11/24/2023 10:50 INDICATION: Weakness PROCEDURE: 2 view chest COMPARISON: Comparison to multiple prior studies sequentially, with oldest reviewed study dated 06/2023. FINDINGS: The lungs are clear. Moderate cardiomegaly. Elevated right diaphragm. No focal air space di sease, pulmonary edema, pleural effusion or suspected pneumothorax. The cardiomediastinal silhouette is within normal limits. There are no pleural effusions. There is no pneumothorax suspected. IMPRESSION: 1: NO ACUTE CARDIOPULMONARY DISEASE. Reviewed, dictated and finalized at location B.
--- NOTE | ~2023-11-24 | CT_ITS ---
EXAMINATION: CT abdomen pelvis wo con DATE: 11/24/2023 11:39 INDICATION: Abdominal pain TECHNIQUE: Computed tomography (CT) of the abdomen and pelvis was performed without intravenous contr ast. Automated exposure control and iterative reconstruction technique were employed. The dose-length product was 1759.06 mGy-cm. COMPARISON: 11/04/2023 FINDINGS: Mild emphysema. Mild discoid atelectasis at the left lung base. Interval increase in the groundglass opacities throughout the visualized mid and lower lungs without evident septal line thickening. No pl eural effusion. Cardiomegaly. Atherosclerotic coronary artery calcification. No pericardial effusion. Thoracic aorta is normal in caliber. No pathologically enlarged thoracic lymphadenopathy. Large peripherally calcified gallstones in the otherwise normal-appearing gallbladder. Liver, spleen, pancreas, bilateral adrenal glands and kidneys are normal. Mild scattered colonic diverticulosis wit hout adjacent from trace stranding to suggest diverticulitis. There is a 7.6 x 6.5 cm ball of stool a t the rectum could be seen with constipation and fecal impaction. No bowel obstruction. Again seen ar e calcified appendicoliths throughout the normal appendix with no periappendiceal inflammatory strand ing to suggest acute appendicitis. Pastor catheter within the decompressed bladder. No free intraperit person gas or fluid. No pathologically enlarged abdominal or pelvic lymphadenopathy. Mild lumbar spond ylosis. Mild bilateral hip and sacroiliac osteoarthritis. IMPRESSION: 1. Large ball of stool at the rectum suggestive of constipation with fecal impaction. No other acute intra-abdominal/pelvic process. 2. Mild emphysema with groundglass opacities throughout the visualized lungs most likely related atel ectasis with differential including mild pulmonary edema or less likely pneumonia. 3. Cardiomegaly. 4. Cholelithiasis. Reviewed, dictated and finalized at location A. IMPRESSION: 1. Large ball of stool at the rectum suggestive of constipation with fecal impa ction. No other acute intra-abdominal/pelvic process. 2. Mild emphysema with groundglass opacities throughout the visualized lungs mo st likely related atelectasis with differential including mild pulmonary edema or less likely pneumonia. 3. Cardiomegaly. 4. Cholelithiasis.
--- NOTE | 2023-11-24 10:01 | ECG_ITS ---
Test Date: 2023-11-24 10:03:42 Measurements Intervals [place] Rate: 79 P: 63 [place]: 219 QRS: 25 QRSD: 165 T: 200 QT: 429 QTc: 492 Interpretive Statements SINUS RHYTHM WITH FIRST DEGREE AV BLOCK LEFT BUNDLE BRANCH BLOCK BASELINE ARTIFACT- I, II, III, V1 ABNORMAL ECG No previous ECG available for comparison Electronically Signed On 11-24-2023 11:02:42 CDT by Yasir Thomas D.O.
[2023-11-24 10:24] LABS: Basophils Percent Auto 0.5 % (0.2-1.2); Eosinophils Absolute Auto 0.9 K/mm3 (0-0.3); Hematocrit 30.8 % (37.0-47.0); Hemoglobin 9.5 g/dL (12.0-15.0); Immature Granulocyte Absolute 0.01 K/mm3 (0.00-0.031); Immature Granulocyte Percent A 0.1 % (0-0.5); Lymphocytes Absolute Auto 2.54 K/mm3 (0.9-3.2); Lymphocytes Percent Auto 31.3 % (18.3-44.2); Mean Corpuscular HGB Conc 30.8 g/dl (32-36); Mean Corpuscular Volume 93.9 fl (80-100); Mean Platelet Volume 10.5 fl (7.4-10.4); Monocytes Absolute Auto 0.6 K/mm3 (0.1-0.6); Monocytes Percent Auto 7.6 % (2.6-8.5); Neutrophils Percent Auto 49.5 % (45.5-73.1); Platelet Count Result 220 k/mm3 (150-375); Red Blood Count 3.28 M/mm3 (4.2-5.4); White Blood Count 8.1 K/mm3 (4.5-10.0)
[2023-11-24 10:43] LABS: Alanine Aminotransferase 31 U/L (6-35); Albumin Level 4.2 g/dL (3.5-5.1); Alkaline Phosphatase 110 U/L (38-126); Anion Gap 11 mmol/L (4-12); Aspartate Amino Transferase 31 U/L (14-36); Bilirubin,Total 0.3 mg/dL (0.2-1.3); Blood Urea Nitrogen 54 mg/dL (7-17); Calcium 8.6 mg/dL (8.4-10.2); Carbon Dioxide 22 mmol/L (22-30); Chloride 107 mmol/L (98-107); Estimated CRCL calculation 21 ml/min; Estimated Glomerular Filt Rate 14; Glucose 114 mg/dL (65-110); Potassium 5.5 mmol/L (3.4-5.0); Sodium 140 mmol/L (137-145)
--- NOTE | 2023-11-24 10:53 | ED.WEAKNESS ---
HPI - Weakness General Chief complaint: Weakness Stated complaint: lethargic Time Seen by Provider: 11/24/23 10:45 Source: RN notes reviewed and old records reviewed Limitations: physical limitation and clinical condition History of Present Illness HPI Narrative: 53-year-old past medical history of reported CHF and COPD (per prior EMR note; no fpc documentation for review) presents from bed were to fill [facility] and Nursing with report of increased lethargy and weakness per staff. It is reported the patient is alert and oriented x2 at baseline due to intellectual disability per review of prior EMR note. It is reported that she is at 2 L oxygen at baseline. Patient has only been able answer yes or no questions which is new. Patient unable to provide significant history. She does nod yes/no at times and point and follow commands but otherwise history limited. Related Data Home Medications Medication Instructions Recorded Confirmed acetaminophen 325 mg tablet 650 mg PO Q6H PRN Pain (Scale 08/26/21 11/24/23 (Tylenol) Score 1-3) aspirin 81 mg chewable tablet 81 mg PO DAILY 08/26/21 09/30/23 (Aspirin Childrens) atorvastatin 80 mg tablet (Lipitor) 80 mg PO HS 08/26/21 11/24/23 benzonatate 200 mg capsule 200 mg PO Q8H PRN Cough 08/26/21 11/24/23 calcium carb-vit D3-minerals 600 2 tablet PO DAILY 08/26/21 09/30/23 mg calcium-400 unit tablet ergocalciferol (vitamin D2) 1,250 50,000 unit PO WEEKLY 08/26/21 09/30/23 mcg (50,000 unit) capsule (Vitamin D2) ferrous sulfate 325 mg (65 mg 325 mg PO BID 08/26/21 11/24/23 iron) tablet isosorbide mononitrate 30 mg 30 mg PO DAILY 08/26/21 11/24/23 tablet,extended release 24 hr phenytoin 100 mg/4 mL oral 125 mg PO BID 08/26/21 11/24/23 suspension escitalopram oxalate 10 mg tablet 1 tablet PO DAILY 10/30/21 11/24/23 phenytoin 100 mg/4 mL oral 200 mg PO QPM 10/30/21 09/30/23 suspension spironolactone 25 mg tablet 1 tablet PO DAILY 10/30/21 11/24/23 nystatin 100,000 unit/gram topical 1 applic topical PRN PRN Rash to 05/27/23 09/30/23 powder abdominal folds and groin. sacubitril 49 mg-valsartan 51 mg 1 tablet PO BID 05/27/23 11/24/23 tablet (Entresto) B-complex with vitamin C 1 cap PO DAILY 09/30/23 09/30/23 carvedilol 25 mg tablet (Coreg) 25 mg PO BID 09/30/23 11/24/23 pantoprazole 40 mg tablet,delayed 40 mg PO DAILY 09/30/23 11/24/23 release Allergies Allergy/AdvReac Type Severity Reaction Status Date / Time No Known Allergies Allergy Verified 11/24/23 10:59 [facility] Past Medical History Medical History Angina pectoris Asthma-COPD overlap syndrome Cerebrovascular accident Chronic kidney disease Chronic subdural hematoma Congestive heart failure Echocardiogram in Apr showed left ventricular dilation with severe global systolic dysfunction with EF of 30%, diastolic noncompliance, left atrial enlarged, no obvious valve dysfunction however somewhat limited due to technically difficult exam due to body habitus. Gastroesophageal reflux disease Hyperlipidemia Hypertension Intellectual disability Iron deficiency anemia Major depressive disorder, recurrent, unspecified Morbid obesity Seizure Vitamin D deficiency Surgical History Surgical History History of right above knee amputation Family History Family History Father Congestive heart failure Hypertension Mother Congestive heart failure Hypertension Social History Social History Social History: Surrogate decision maker: Laxmi Marrero, aunt. Code status: Full code per facility documentation Smoking packs per day: 1 Smoking cigarettes per day: 20.0 Years smoked: 20 Smoking pack-years: 20.00 Smoking status: Unknown if ever smoked Tobacco type: cigarettes
[2023-11-24 11:15] LABS: Alveolar/Arterial O2 Gradient 60.2 mmHg; Base Excess ABG -6.4 mEq/l (+/-2.0); Fractional Inspired Oxygen 28 %; Oxygen Saturation ABG 95.8 % (95.0-100.0); PCO2 ABG 42.9 mmHg (35.0-45.0); PO2 ABG 88.8 mmHg (80.0-100.0); PO2 FiO2 Ratio Arterial Blood 3.17 %
[2023-11-24 11:17] LABS: Device NASAL CANNULA; Modified Allen's Test Pass; Site Drawn LEFT RADIAL; pH ABG 7.287 (7.350-7.450)
[2023-11-24 11:28] LABS: Magnesium 1.9 mg/dL (1.6-2.3)
[2023-11-24 11:38] LABS: NT Pro B Type Natriuretic Pept 4520 pg/mL (19.9-100)
[2023-11-24] MEDS: IPRATROPIUM 0.5 MG/ALBUTEROL SULFATE 2.5 MG AMPUL.NEB 3 ML INHALATION ×2 (11:42→21:52)
[2023-11-24] MEDS: ALBUTEROL SULFATE NEB 2.5 MG/3 ML INH INHALATION (11:42)
[2023-11-24 12:15] LABS: Influenza A QL RT-PCR Negative (Negative); Influenza B QL RT-PCR Negative (Negative); RSV RNA, RT-PCR Negative (Negative); SARS-CoV-2 RNA PCR Negative (Negative)
[2023-11-24] MEDS: DEXTROSE 50% 25 GM/50 ML SYRINGE IV PUSH ×2 (12:20→19:54)
[2023-11-24] MEDS: INSULIN HUMAN REGULAR (*BKC) 100 UNITS/ML IV PUSH (12:20)
[2023-11-24] MEDS: FUROSEMIDE INJ 40 MG/4 ML VIAL IV PUSH (12:20)
[2023-11-24] MEDS: predniSONE 20 MG TABLET 60 MG PO (12:22)
[2023-11-24] MEDS: MAGNESIUM SULF 1 GM/D5W 100 ML 1 GM/100 ML BAG IVPB (12:23)
[2023-11-24 12:27] LABS: Glucose Point of Care 96 mg/dl (65-105)
--- NOTE | 2023-11-24 13:17 | PC.NURSE ---
Respiratory called for breathing treatment
[2023-11-24 13:31] LABS: Troponin I 0.054 ng/mL (0.000-0.034)
[2023-11-24] MEDS: SODIUM POLYSTYRENE SULFONONATE 15 GM/60 ML BTL 30 GM PO (13:48)
[2023-11-24] MEDS: CALCIUM GLUC 1,000 MG/NS 50 ML 1,000 MG/50 ML BAG 100 MG IVPB ×2 (13:48→22:33)
--- NOTE | 2023-11-24 14:06 | PM.IMHP ---
H&P: HPI History of Present Illness Date/Time: 11/24/23 14:06 Chief Complaint: Lethargy Narrative: 53 y/o F presents here with lethargy with PMH of asthma-COPD overlap, CVA, CKD, chronic subdural hematoma, CHF, GERD, HLD, HTN, CAROLYNN, depression, seizures, and vitamin-D deficiency. The patient presents here via EMS from [facility] for further evaluation of lethargy. Patient arrived A/Ox0, not able to contribute meaningfully to HPI, obtained through chart review. Per report given to EMS, staff noted increased lethargy starting yesterday (11/22). Patient now only answering yes or no questions and seems more delayed . Endorsing shortness of breath unable to elaborate further. Per previous visit notes, patient is nonverbal at baseline. ED staff contacted retirement for collateral information, however there were unable to send paperwork or answer further questions due to computer system failure. Initial VS at presentation: 97.9? F, HR 75, R 19, 131/97, and 100% on 2L NC (baseline requirement). ED workup showed: No leukocytosis, hemoglobin 9.5, ABG showed pH of 7.27 and HCO3 of 20, potassium 5.5, creatinine 4.1 and GFR 14) baseline), initial troponin 0.054, and BNP 4520. Viral PCR negative. CXR showed no acute cardiopulmonary disease. CT of the abdomen/pelvis showed a large bowel stool at the rectum suggestive of constipation with fecal impaction, mild emphysema with ground-glass opacities at the visualized lungs (mild pulmonary edema versus pneumonia), cardiomegaly, and cholelithiasis. Review of Systems Review of Systems: ROS unobtainable: Yes unobtainable due to mental status [facility]LY [facility] Past Medical History Medical History Angina pectoris Asthma-COPD overlap syndrome Cerebrovascular accident Chronic kidney disease Chronic subdural hematoma Congestive heart failure Echocardiogram in Apr showed left ventricular dilation with severe global systolic dysfunction with EF of 30%, diastolic noncompliance, left atrial enlarged, no obvious valve dysfunction however somewhat limited due to technically difficult exam due to body habitus. Gastroesophageal reflux disease Hyperlipidemia Hypertension Intellectual disability Iron deficiency anemia Major depressive disorder, recurrent, unspecified Morbid obesity Seizure Vitamin D deficiency Surgical History Surgical History History of right above knee amputation Family History Family History Father Congestive heart failure Hypertension Mother Congestive heart failure Hypertension Social History Social History Social History: Surrogate decision maker: Laxmi Marrero, aunt. Code status: Full code per facility documentation Smoking packs per day: 1 Smoking cigarettes per day: 20.0 Years smoked: 20 Smoking pack-years: 20.00 Smoking status: Unknown if ever smoked Tobacco type: cigarettes Second hand tobacco smoke exposure: No Smoking end date: 02/06/23 Alcohol intake: unknown Substance use: unknown Substance use type: unknown Do You Feel Safe in your Home?: Yes Lack of Transportation: No Lack of Food: Never True Current Housing: I Have Housing Concerned About Future Housing: No Difficulty Paying Gas/Electric Bills: No Difficulty Paying for Meds: No Currently Unemployed: No Education: High School Diploma/GED Difficulty w/ Childcare or Family Care: No Additional living arrangements comments: Resident at [facility]. Additional occupation/education comments: Disabled. Spiritual care concerns: No Meds Home Medications and Allergies Home Medications Medication Instructions Recorded Confirmed Type acetaminophen 325 mg tablet 650 mg PO Q6H PRN Pain (Scale 08/26/21 11/24/23
--- NOTE | 2023-11-24 14:26 | PC.NURSE ---
Attempting to draw repeat BMP. Provider aware.
[2023-11-24 15:01] LABS: Appearance Urine Turbid (Clear); Bacteria Urine 4+ /hpf; Bilirubin Urine Negative (Negative); Blood Urine 3+ (Negative); Color Urine Yellow (Yellow); Glucose Urine UA Negative (Negative); Ketones Urine Negative (Negative); Leukocyte Esterase Ur 3+ LEU/UL (Negative); Need Manual Microscopic Reviewed; Nitrate Urine Negative (Negative); Non Pathogenic Casts >20; Protein Urine 2+ mg/dL (Negative); RBC Urine >100 /hpf (0-2); Specific Grav Ur 1.009 (1.001-1.035); Squamous Epithelial Cell Urine Many /hpf (Few); Urobilinogen Urine 0.2 mg/dL (<2.0); WBC Clumps Urine Present /HPF; WBC Urine >100 /hpf (0-3); pH Urine 7.5 (5.0-9.0)
[2023-11-24 15:04] LABS: Add Urine Microscopic? YES
[2023-11-24 15:05] LABS: Glucose Point of Care 155 mg/dl (65-105)
[2023-11-24 16:09] LABS: Anion Gap 14 mmol/L (4-12); Blood Urea Nitrogen 54 mg/dL (7-17); Calcium 9.3 mg/dL (8.4-10.2); Carbon Dioxide 19 mmol/L (22-30); Chloride 107 mmol/L (98-107); Estimated CRCL calculation 22 ml/min; Estimated Glomerular Filt Rate 15; Glucose 129 mg/dL (65-110); Potassium 5.4 mmol/L (3.4-5.0); Sodium 140 mmol/L (137-145)
--- NOTE | 2023-11-24 16:35 | ADMGEN ---
This patient, Mirela Preston, was admitted to IMU Room 206-02. Patient/family oriented to hospital policies and general routines including ID bracelet, bed and alarms, visiting hours, pain management, procedures, bathroom and other care routines, personal items, smoking policy, room service/diet, and visiting hours. freeman bag in place to gravity, pt has 1 pair of pants in bag with her Information on how to activate the Rapid Response Team has been discussed. Patient/Family are encouraged to report perceived risks to care and to ask questions if they do not understand what they are told or what they should do.
[2023-11-24 19:04] LABS: Troponin I 0.053 ng/mL (0.000-0.034)
[2023-11-24 19:48] LABS: Glucose Point of Care 190 mg/dl (65-105)
[2023-11-24] MEDS: SODIUM BICARBONATE 8.4% 50 MEQ/50 ML SYRINGE IV PUSH ×2 (19:54→22:33)
[2023-11-24] MEDS: INSULIN HUMAN REGULAR (*BKC) 100 UNITS/ML 10 UNITS IV PUSH (19:55)
[2023-11-24 20:56] LABS: Glucose Point of Care 225 mg/dl (65-105)
[2023-11-24 21:17] LABS: Anion Gap 13 mmol/L (4-12); Blood Urea Nitrogen 51 mg/dL (7-17); Calcium 8.9 mg/dL (8.4-10.2); Carbon Dioxide 20 mmol/L (22-30); Chloride 108 mmol/L (98-107); Estimated CRCL calculation 22 ml/min; Estimated Glomerular Filt Rate 15; Glucose 213 mg/dL (65-110); Potassium 5.2 mmol/L (3.4-5.0); Sodium 141 mmol/L (137-145)
[2023-11-24 21:24] LABS: Alveolar/Arterial O2 Gradient 107.5 mmHg; Base Excess ABG -5.3 mEq/l (+/-2.0); Fractional Inspired Oxygen 28 %; HCO3 ABG 20.7 mEq/l (22.0-26.0); Oxygen Content ABG 11.7 %vol (16.0-22.0); PCO2 ABG 42.4 mmHg (35.0-45.0); pH ABG 7.307 (7.350-7.450)
[2023-11-24 21:26] LABS: Oxygen Saturation ABG 73.1 % (95.0-100.0); Oxyhemoglobin 75.6 % THb (90.0-100.0); PO2 ABG 42.1 mmHg (80.0-100.0)
[2023-11-24 21:27] LABS: Device NASAL CANNULA; Modified Allen's Test Pass; Site Drawn RIGHT RADIAL
[2023-11-24] MEDS: MEROPENEM 500 MG/NS 100 ML 500 MG/100 ML BAG 200 MG IVPB (21:39)
[2023-11-24] MEDS: carvediloL 25 MG TABLET PO (21:42)
[2023-11-24] MEDS: hydrALAZINE HCL 25 MG TABLET PO (21:43)
[2023-11-24] MEDS: SACUBITRIL/VALSARTAN 49-51 MG TABLET 1 TABLET PO (21:43)
[2023-11-24] MEDS: SODIUM ZIRCONIUM CYCLOSILICATE 10 GM POWD.PACK PO (22:31)
[2023-11-24] MEDS: ATORVASTATIN 40 MG TABLET 80 MG PO (22:32)
[2023-11-24] MEDS: WATER FOR IRRIGATION, STERILE 1,000 ML BOTTLE 1000 ML (23:24)
[2023-11-24] MEDS: cloNIDine HCL 0.1 MG TABLET 0.3 MG PO (23:52)
[2023-11-25] VITALS (28 sets, daily range): BP systolic 96–128; BP diastolic 48–86; PULSE 73–102; RESP 12–22; TEMP 36.3–36.9; O2SAT 94–100
[2023-11-25 00:24] LABS: Anion Gap 14 mmol/L (4-12); Blood Urea Nitrogen 53 mg/dL (7-17); Carbon Dioxide 22 mmol/L (22-30); Chloride 106 mmol/L (98-107); Estimated CRCL calculation 24 ml/min; Estimated Glomerular Filt Rate 16; Glucose 171 mg/dL (65-110); Potassium 4.4 mmol/L (3.4-5.0); Sodium 142 mmol/L (137-145)
[2023-11-25] MEDS: IPRATROPIUM 0.5 MG/ALBUTEROL SULFATE 2.5 MG AMPUL.NEB 3 ML INHALATION ×4 (03:21→19:55)
[2023-11-25 05:17] LABS: Basophils Absolute Auto 0.1 K/mm3 (0.0-0.1); Basophils Percent Auto 0.6 % (0.2-1.2); Eosinophils Absolute Auto 0.5 K/mm3 (0-0.3); Eosinophils Percent Auto 6.7 % (0-4.4); Hemoglobin 9.8 g/dL (12.0-15.0); Immature Granulocyte Absolute 0.03 K/mm3 (0.00-0.031); Immature Granulocyte Percent A 0.4 % (0-0.5); Lymphocytes Absolute Auto 2.42 K/mm3 (0.9-3.2); Lymphocytes Percent Auto 31.2 % (18.3-44.2); Mean Corpuscular HGB Conc 29.7 g/dl (32-36); Mean Corpuscular Hemoglobin 28.9 pg (26-34); Mean Corpuscular Volume 97.3 fl (80-100); Mean Platelet Volume 10.7 fl (7.4-10.4); Monocytes Absolute Auto 0.8 K/mm3 (0.1-0.6); Monocytes Percent Auto 10.1 % (2.6-8.5); Platelet Count Result 210 k/mm3 (150-375); Red Blood Count 3.39 M/mm3 (4.2-5.4); Red Cell Distribution Width 15.2 % (11.5-14.5); White Blood Count 7.8 K/mm3 (4.5-10.0)
[2023-11-25 05:29] LABS: Alanine Aminotransferase 32 U/L (6-35); Albumin Level 4.2 g/dL (3.5-5.1); Alkaline Phosphatase 111 U/L (38-126); Anion Gap 14 mmol/L (4-12); Aspartate Amino Transferase 37 U/L (14-36); Bilirubin,Total 0.3 mg/dL (0.2-1.3); Blood Urea Nitrogen 52 mg/dL (7-17); Calcium 9.1 mg/dL (8.4-10.2); Carbon Dioxide 22 mmol/L (22-30); Chloride 107 mmol/L (98-107); Estimated CRCL calculation 21 ml/min; Estimated Glomerular Filt Rate 14; Glucose 52 mg/dL (65-110); Potassium 4.2 mmol/L (3.4-5.0); Sodium 143 mmol/L (137-145)
[2023-11-25] MEDS: GLUCOSE ORAL GEL 15 GM OF GLUCSE IN 37.5 GM TUBE PO (05:35)
[2023-11-25 05:41] LABS: Glucose Point of Care 55 mg/dl (65-105)
[2023-11-25 05:45] LABS: Fractional Inspired Oxygen 28 %; HCO3 ABG 27.2 mEq/l (22.0-26.0); Oxygen Content ABG 16.7 %vol (16.0-22.0); PCO2 ABG 49.4 mmHg (35.0-45.0); PO2 FiO2 Ratio Arterial Blood 1.76 %; pH ABG 7.358 (7.350-7.450)
[2023-11-25 05:49] LABS: PO2 ABG 49.4 mmHg (80.0-100.0)
[2023-11-25 05:50] LABS: CPAP 15 cmH2O; Device CPAP; Modified Allen's Test Pass; Oxyhemoglobin 85.1 % THb (90.0-100.0); Site Drawn LEFT RADIAL
[2023-11-25] MEDS: cloNIDine HCL 0.1 MG TABLET 0.3 MG PO (06:02)
[2023-11-25 06:13] LABS: Glucose Point of Care 62 mg/dl (65-105)
[2023-11-25 07:07] LABS: Glucose Point of Care 69 mg/dl (65-105)
[2023-11-25 07:25] LABS: Glucose Point of Care 94 mg/dl (65-105)
--- NOTE | 2023-11-25 08:35 | PC.NURSE ---
Informed Dr. Butt of pt's BP of 96/48. New order to not give pt any of her BP/cardiac medications at this time
[2023-11-25] MEDS: ESCITALOPRAM OXALATE 10 MG TABLET PO (09:19)
[2023-11-25] MEDS: FERROUS SULFATE 325 MG TABLET DR PO ×2 (09:19→16:36)
[2023-11-25] MEDS: PANTOPRAZOLE 40 MG TABLET PO (09:19)
[2023-11-25] MEDS: MEROPENEM 500 MG/NS 100 ML 500 MG/100 ML BAG 200 MG IVPB ×2 (09:20→20:34)
[2023-11-25] MEDS: CLOPIDOGREL BISULFATE 75 MG TABLET PO (09:20)
[2023-11-25 11:54] LABS: Glucose Point of Care 137 mg/dl (65-105)
--- NOTE | 2023-11-25 12:29 | PC.NURSE ---
Updated Dr. Butt on pt's BP of 107/55. New order to not administer 1300 dose of hydralazine
--- NOTE | 2023-11-25 14:02 | PM.IMPN ---
Progress Note: A&P Assessment and Plan (1) Urinary tract infection associated with indwelling urethral catheter: Code(s): T83.511A - Infection and inflammatory reaction due to indwelling urethral catheter, initial encounter; N39.0 - Urinary tract infection, site not specified Status: Acute Assessment and Plan: Patient found to be lethargic related to UTI but did not meet SIRS criteria Chronic Pastor exchanged here UA is consistent with UTI. UCx collected. Hx of ESBL EColi Meropenem started. UCx pending. BCx NGTD Follow up on Cx results. (2) Hyperkalemia: Code(s): E87.5 - Hyperkalemia Status: Acute Assessment and Plan: Potassium 5.5 on admission felt related to CKD. This was treated approrpiated. Potassium better. Glucose dropped this morning but better now after intervention. Potassium stable. Continue to monitor (3) Fecal impaction: Code(s): K56.41 - Fecal impaction Status: Acute Assessment and Plan: CT abd/pelvis showing a large ball of stool at the rectum suggestive of constipation with fecal impaction. Attempted disimpaction in ED, stools soft/mushy Soap suds enema Schedule Miralax (4) CKD (chronic kidney disease): Code(s): N18.9 - Chronic kidney disease, unspecified Status: Acute Assessment and Plan: Creatinine 4.1 with baseline 3.9 to 4.3 Had a metabolic acidosis on admission probably related to CKD. Follow electrolytes, UOP and renal function (5) Congestive heart failure: Code(s): I50.9 - Heart failure, unspecified Status: Acute Assessment and Plan: Laying flat without dyspnea. No clinical evidence of fluid overload. BNP 4520, improved from previous (15,600 in September of 2023). CXR clear. Recent echo (06/2023): EF 20-25% with moderately increased LV wall thickness and mild valvular disease. Currently on Bumex, spironolactone, Entrsto, Hydralazine/Imdur and Coreg. Received lasix IV once in the ED and hydralazine, Clonidine and coreg overnight. BP normal yesterday but 96/48 this morning. Holding spironolactone, Hydralazine and Clonidinie. Parameters on Bumex, Entresto and Coreg Continue daily weights, I&Os and renal function (6) Hypertension: Qualifiers: Hypertension type: unspecified Qualified Code(s): I10 - Essential (primary) hypertension Code(s): I10 - Essential (primary) hypertension Status: Acute Assessment and Plan: Patient's blood pressure was reviewed on 11/24 Blood pressure low-normal but holding home meds Will continue to monitor. As above. Plan Diet: renal GI Prophylaxis: continue home p.o. pantoprazole DVT Prophylaxis: Heparin Lines: peripheral Code Status: full code Subjective Date/time seen: 11/25/23 14:02 Interval history: 53yo female with chronic Pastor, CKD, CHF, HTN and cognitive dysfunction (hx of CVA, SDH and intellectual dysability) here for lethargy. Patient is awake, alert but nonverbal. She follows commands mostly Review of Systems Review of Systems: ROS unobtainable: Yes unobtainable due to mental status Exam Narrative: AF 98.4 107/55 87 16 100% ra Gen - NARD lying flat in bed (about to be cleaned up) Chest - clear, distatn BS. nml RR CV - RRR S1/S2. Tele showing no significant dysrhythmias Abd - Soft, obese, NT - Pastor secured draining clear yellow urine Ext - No left pedal edema. Right AKA Neuro - Alert. SHEPARD equally. follows commands for the most part. nonverbal Psych - pleasant and cooperative Skin - Warm and dry Objective Data Vital Signs Vital Signs: Vital Signs - 24 hr 11/24/23 14:15 11/24/23 15:40 11/24/23 16:00 Temperature 98.6 F Pulse Rate 85 94 79 Respiratory Rate 14 22 H Blood Pressure 123/68 Pulse Oximetry 100 Oxygen Delivery Oxygen Flow Rate 11/24/23 16:00 11/24/23 16:00 11/24/23 18:00 Temperature 98.0 F Pulse Rate 92 84 Respiratory Rate 22 H Blood P
--- NOTE | 2023-11-25 14:42 | PC.NURSE ---
Updated Dr. Butt that pt has had a large bowel movement last evening and another moderate bowel movement this afternoon. New order to cancel soap suds enema and start Miralax tomorrow morning.
[2023-11-25 16:35] LABS: Glucose Point of Care 108 mg/dl (65-105)
[2023-11-25] MEDS: BUMETANIDE 1 MG TABLET PO (16:36)
[2023-11-25 20:16] LABS: Glucose Point of Care 100 mg/dl (65-105)
[2023-11-25] MEDS: SACUBITRIL/VALSARTAN 49-51 MG TABLET 1 TABLET PO (20:29)
[2023-11-25] MEDS: ATORVASTATIN 40 MG TABLET 80 MG PO (20:29)
[2023-11-25] MEDS: carvediloL 25 MG TABLET PO (20:30)
[2023-11-25] MEDS: TOLNAFTATE 1% POWDER 45 GM BTL 1 APPLIC TOPICAL (20:30)
[2023-11-25] MEDS: HEPARIN SODIUM 5,000 UNITS/ML VIAL 5000 UNITS SUB-Q (20:30)
[2023-11-26] VITALS (28 sets, daily range): BP systolic 104–140; BP diastolic 45–64; PULSE 66–93; RESP 12–20; TEMP 35.9–36.9; O2SAT 95–100
[2023-11-26] MEDS: IPRATROPIUM 0.5 MG/ALBUTEROL SULFATE 2.5 MG AMPUL.NEB 3 ML INHALATION ×4 (02:37→20:16)
[2023-11-26 05:10] LABS: Basophils Percent Auto 0.6 % (0.2-1.2); Eosinophils Absolute Auto 0.5 K/mm3 (0-0.3); Eosinophils Percent Auto 8.1 % (0-4.4); Hematocrit 27.2 % (37.0-47.0); Hemoglobin 8.3 g/dL (12.0-15.0); Immature Granulocyte Absolute 0.02 K/mm3 (0.00-0.031); Immature Granulocyte Percent A 0.3 % (0-0.5); Lymphocytes Absolute Auto 2.07 K/mm3 (0.9-3.2); Lymphocytes Percent Auto 31.6 % (18.3-44.2); Mean Corpuscular HGB Conc 30.5 g/dl (32-36); Mean Corpuscular Hemoglobin 28.2 pg (26-34); Mean Corpuscular Volume 92.5 fl (80-100); Mean Platelet Volume 10.7 fl (7.4-10.4); Monocytes Absolute Auto 0.5 K/mm3 (0.1-0.6); Monocytes Percent Auto 7.5 % (2.6-8.5); Neutrophils Absolute Auto 3.4 K/mm3 (1.3-6.7); Neutrophils Percent Auto 51.9 % (45.5-73.1); Platelet Count Result 185 k/mm3 (150-375); Red Blood Count 2.94 M/mm3 (4.2-5.4); Red Cell Distribution Width 14.8 % (11.5-14.5); White Blood Count 6.6 K/mm3 (4.5-10.0)
[2023-11-26 05:30] LABS: Alanine Aminotransferase 27 U/L (6-35); Albumin Level 3.5 g/dL (3.5-5.1); Alkaline Phosphatase 102 U/L (38-126); Anion Gap 10 mmol/L (4-12); Aspartate Amino Transferase 34 U/L (14-36); Bilirubin,Total 0.2 mg/dL (0.2-1.3); Blood Urea Nitrogen 51 mg/dL (7-17); Carbon Dioxide 25 mmol/L (22-30); Chloride 102 mmol/L (98-107); Estimated CRCL calculation 24 ml/min; Estimated Glomerular Filt Rate 16; Glucose 95 mg/dL (65-110); Magnesium 1.6 mg/dL (1.6-2.3); Phosphorus 4.6 mg/dL (2.5-4.5); Potassium 3.6 mmol/L (3.4-5.0); Sodium 137 mmol/L (137-145)
[2023-11-26 05:39] LABS: Phenytoin Dilantin 32 ug/mL (10-20)
[2023-11-26] MEDS: MEROPENEM 500 MG/NS 100 ML 500 MG/100 ML BAG 200 MG IVPB ×2 (08:26→20:23)
[2023-11-26] MEDS: SODIUM BICARBONATE TAB 650 MG TABLET PO (08:56)
[2023-11-26] MEDS: carvediloL 25 MG TABLET PO ×2 (08:56→20:24)
[2023-11-26] MEDS: SACUBITRIL/VALSARTAN 49-51 MG TABLET 1 TABLET PO ×2 (08:56→20:24)
[2023-11-26] MEDS: polyethylene glycoL 3350 17 GM POWD.PACK PO (08:56)
[2023-11-26] MEDS: BUMETANIDE 1 MG TABLET PO ×2 (08:56→16:43)
[2023-11-26] MEDS: CALCIUM/VITAMIN D 500 MG/5 MCG (200 I.U.) TABLET 1000 MG PO (08:57)
[2023-11-26] MEDS: ISOSORBIDE MONONITRATE 30 MG TAB.ER.24H PO (08:57)
[2023-11-26] MEDS: ASPIRIN 81 MG CHEWABLE TABLET PO (08:57)
[2023-11-26] MEDS: ESCITALOPRAM OXALATE 10 MG TABLET PO (08:57)
[2023-11-26] MEDS: CLOPIDOGREL BISULFATE 75 MG TABLET PO (08:57)
[2023-11-26] MEDS: FERROUS SULFATE 325 MG TABLET DR PO ×2 (08:57→16:43)
[2023-11-26] MEDS: PANTOPRAZOLE 40 MG TABLET PO (08:57)
[2023-11-26] MEDS: HEPARIN SODIUM 5,000 UNITS/ML VIAL 5000 UNITS SUB-Q ×2 (08:57→20:24)
[2023-11-26] MEDS: TOLNAFTATE 1% POWDER 45 GM BTL 1 APPLIC TOPICAL ×2 (08:57→20:24)
--- NOTE | 2023-11-26 12:22 | PM.IMPN ---
Progress Note: A&P Assessment and Plan (1) Urinary tract infection associated with indwelling urethral catheter: Code(s): T83.511A - Infection and inflammatory reaction due to indwelling urethral catheter, initial encounter; N39.0 - Urinary tract infection, site not specified Status: Acute Assessment and Plan: Patient found to be lethargic related to UTI but did not meet SIRS criteria Chronic Pastor exchanged here UA is consistent with UTI. UCx collected. Hx of ESBL EColi Meropenem started. UCx growing EColi. BCx NGTD Follow up on Cx results. (2) Hyperkalemia: Code(s): E87.5 - Hyperkalemia Status: Acute Assessment and Plan: Potassium 5.5 on admission felt related to CKD. This was treated approrpiated. Potassium better. Glucose dropped felt related to the insulin given but stable now Potassium stable. Continue to monitor (3) Fecal impaction: Code(s): K56.41 - Fecal impaction Status: Acute Assessment and Plan: CT abd/pelvis showing a large ball of stool at the rectum suggestive of constipation with fecal impaction. Attempted disimpaction in ED, stools soft/mushy. She has had large BMs since admisison. Miralax started for prevention. (4) CKD (chronic kidney disease): Code(s): N18.9 - Chronic kidney disease, unspecified Status: Acute Assessment and Plan: Creatinine 4.1 with baseline 3.9 to 4.3 Had a metabolic acidosis on admission probably related to CKD. Cr down to 3.6 and metabolic acidosis resolved Follow electrolytes, UOP and renal function (5) Congestive heart failure: Code(s): I50.9 - Heart failure, unspecified Status: Acute Assessment and Plan: Laying flat without dyspnea. No clinical evidence of fluid overload. BNP 4520, improved from previous (15,600 in September of 2023). CXR clear. Recent echo (06/2023): EF 20-25% with moderately increased LV wall thickness and mild valvular disease. Currently on Bumex, spironolactone, Entrsto, Hydralazine/Imdur and Coreg. Received lasix IV once in the ED and hydralazine, Clonidine and coreg overnight and BP dropped to 96/48 Currently holding spironolactone, Hydralazine and Clonidinie. Parameters on Bumex, Entresto and Coreg placed BP remaining stable. Add back meds as tolerated Continue daily weights, I&Os and renal function (6) Hypertension: Qualifiers: Hypertension type: unspecified Qualified Code(s): I10 - Essential (primary) hypertension Code(s): I10 - Essential (primary) hypertension Status: Acute Assessment and Plan: Patient's blood pressure was reviewed on 11/25 Blood pressure low-normal but stable Will continue to monitor. As above. (7) Seizure: Code(s): R56.9 - Unspecified convulsions Status: Acute Assessment and Plan: Dilantin level elevated at 32. Will hold and repeat level tomorrow. Resume at lower dose once level better Seizure precautions. Plan Diet: renal GI Prophylaxis: continue home p.o. pantoprazole DVT Prophylaxis: Heparin Lines: peripheral Code Status: full code Subjective Date/time seen: 11/26/23 12:22 Interval history: 53yo female with chronic Pastor, CKD, CHF, HTN and cognitive dysfunction (hx of CVA, SDH and intellectual dysability) here for lethargy. Patient is awake, alert but nonverbal. Review of Systems Review of Systems: ROS unobtainable: Yes unobtainable due to mental status Exam Narrative: AF 98.4 104/45 70 20 100% ra Gen - NARD Chest - coarse with expiratory wheezing. nml RR CV - RRR S1/S2. Tele showing no significant dysrhythmias Abd - Soft, obese, NT - Pastor secured draining clear yellow urine Ext - No left pedal edema. Right AKA Neuro - Alert. SHEPARD equally. nonverbal Psych - pleasant and cooperative Skin - Warm and dry. small, raised tense blisters right distal forearm (related to a dressing?) Objective Data Vital Signs Fernanda
[2023-11-26] MEDS: ATORVASTATIN 40 MG TABLET 80 MG PO (20:23)
[2023-11-27] VITALS (29 sets, daily range): BP systolic 131–144; BP diastolic 58–65; PULSE 67–98; RESP 16–20; TEMP 36.8–36.9; O2SAT 94–100
[2023-11-27] MEDS: IPRATROPIUM 0.5 MG/ALBUTEROL SULFATE 2.5 MG AMPUL.NEB 3 ML INHALATION ×4 (01:58→20:46)
[2023-11-27 05:46] LABS: Basophils Percent Auto 0.3 % (0.2-1.2); Eosinophils Absolute Auto 0.6 K/mm3 (0-0.3); Eosinophils Percent Auto 8.7 % (0-4.4); Hematocrit 25.4 % (37.0-47.0); Hemoglobin 8.1 g/dL (12.0-15.0); Immature Granulocyte Absolute 0.02 K/mm3 (0.00-0.031); Immature Granulocyte Percent A 0.3 % (0-0.5); Lymphocytes Absolute Auto 1.98 K/mm3 (0.9-3.2); Lymphocytes Percent Auto 31.4 % (18.3-44.2); Mean Corpuscular HGB Conc 31.9 g/dl (32-36); Mean Corpuscular Hemoglobin 29.2 pg (26-34); Mean Corpuscular Volume 91.7 fl (80-100); Mean Platelet Volume 10.4 fl (7.4-10.4); Monocytes Absolute Auto 0.6 K/mm3 (0.1-0.6); Monocytes Percent Auto 9.4 % (2.6-8.5); Neutrophils Absolute Auto 3.1 K/mm3 (1.3-6.7); Neutrophils Percent Auto 49.9 % (45.5-73.1); Platelet Count Result 159 k/mm3 (150-375); Red Blood Count 2.77 M/mm3 (4.2-5.4); Red Cell Distribution Width 14.7 % (11.5-14.5); White Blood Count 6.3 K/mm3 (4.5-10.0)
[2023-11-27 06:05] LABS: Anion Gap 9 mmol/L (4-12); Blood Urea Nitrogen 49 mg/dL (7-17); Calcium 7.9 mg/dL (8.4-10.2); Carbon Dioxide 25 mmol/L (22-30); Chloride 103 mmol/L (98-107); Estimated CRCL calculation 22 ml/min; Estimated Glomerular Filt Rate 15; Glucose 93 mg/dL (65-110); Magnesium 1.6 mg/dL (1.6-2.3); Phenytoin Dilantin 37 ug/mL (10-20); Potassium 3.9 mmol/L (3.4-5.0); Sodium 137 mmol/L (137-145)
[2023-11-27] MEDS: CALCIUM/VITAMIN D 500 MG/5 MCG (200 I.U.) TABLET 1000 MG PO (08:28)
[2023-11-27] MEDS: SODIUM BICARBONATE TAB 650 MG TABLET PO (08:29)
[2023-11-27] MEDS: SACUBITRIL/VALSARTAN 49-51 MG TABLET 1 TABLET PO ×2 (08:29→19:59)
[2023-11-27] MEDS: ESCITALOPRAM OXALATE 10 MG TABLET PO (08:29)
[2023-11-27] MEDS: ISOSORBIDE MONONITRATE 30 MG TAB.ER.24H PO (08:29)
[2023-11-27] MEDS: HEPARIN SODIUM 5,000 UNITS/ML VIAL 5000 UNITS SUB-Q ×2 (08:29→20:00)
[2023-11-27] MEDS: CLOPIDOGREL BISULFATE 75 MG TABLET PO (08:29)
[2023-11-27] MEDS: ASPIRIN 81 MG CHEWABLE TABLET PO (08:29)
[2023-11-27] MEDS: BUMETANIDE 1 MG TABLET PO ×2 (08:29→16:59)
[2023-11-27] MEDS: PANTOPRAZOLE 40 MG TABLET PO (08:29)
[2023-11-27] MEDS: FERROUS SULFATE 325 MG TABLET DR PO ×2 (08:29→16:59)
[2023-11-27] MEDS: carvediloL 25 MG TABLET PO ×2 (08:29→20:00)
[2023-11-27] MEDS: TOLNAFTATE 1% POWDER 45 GM BTL 1 APPLIC TOPICAL ×2 (08:30→20:01)
[2023-11-27] MEDS: polyethylene glycoL 3350 17 GM POWD.PACK PO (08:30)
[2023-11-27] MEDS: CEPHALEXIN 250 MG CAPSULE PO ×2 (08:32→20:00)
--- NOTE | 2023-11-27 12:56 | PC.NURSE ---
Patient continues to remove mitten restraints. They remain off at this time, will continue to monitor patient for safety and pulling at lines.
--- NOTE | 2023-11-27 16:57 | PM.IMPN ---
Progress Note: A&P Assessment and Plan (1) Urinary tract infection associated with indwelling urethral catheter: Code(s): T83.511A - Infection and inflammatory reaction due to indwelling urethral catheter, initial encounter; N39.0 - Urinary tract infection, site not specified Status: Acute Assessment and Plan: Patient found to be lethargic related to UTI but did not meet SIRS criteria Chronic Pastor exchanged here UA is consistent with UTI. UCx collected. Hx of ESBL EColi so Meropenem started. UCx growing EColi that is relatively [place]-sensitive. BCx NGTD Abx adjusted. (2) Hyperkalemia: Code(s): E87.5 - Hyperkalemia Status: Acute Assessment and Plan: Potassium 5.5 on admission felt related to CKD. This was treated approrpiated. Potassium better. Glucose dropped felt related to the insulin given but stable now Potassium stable. Continue to monitor (3) Fecal impaction: Code(s): K56.41 - Fecal impaction Status: Acute Assessment and Plan: CT abd/pelvis showing a large ball of stool at the rectum suggestive of constipation with fecal impaction. Attempted disimpaction in ED, stools soft/mushy. She has had large BMs since admisison. Miralax started for prevention. (4) CKD (chronic kidney disease): Code(s): N18.9 - Chronic kidney disease, unspecified Status: Acute Assessment and Plan: Creatinine 4.1 with baseline 3.9 to 4.3 Had a metabolic acidosis on admission probably related to CKD. Cr down to 3.6 and metabolic acidosis resolved Follow electrolytes, UOP and renal function (5) Congestive heart failure: Code(s): I50.9 - Heart failure, unspecified Status: Acute Assessment and Plan: Laying flat without dyspnea. No clinical evidence of fluid overload. BNP 4520, improved from previous (15,600 in September of 2023). CXR clear. Recent echo (06/2023): EF 20-25% with moderately increased LV wall thickness and mild valvular disease. Currently on Bumex, spironolactone, Entrsto, Hydralazine/Imdur and Coreg. Received lasix IV once in the ED and hydralazine, Clonidine and coreg overnight and BP dropped to 96/48 Currently holding spironolactone, Hydralazine and Clonidinie. Parameters on Bumex, Entresto and Coreg placed BP remaining stable. Add back meds as tolerated Continue daily weights, I&Os and renal function (6) Hypertension: Qualifiers: Hypertension type: unspecified Qualified Code(s): I10 - Essential (primary) hypertension Code(s): I10 - Essential (primary) hypertension Status: Acute Assessment and Plan: Patient's blood pressure was reviewed on 11/26 Blood pressure stable Will continue to monitor. As above. (7) Seizure: Code(s): R56.9 - Unspecified convulsions Status: Acute Assessment and Plan: Dilantin level elevated at 32. Dilatin held Repeat level still elevated Neuro consult. Resume at lower dose once level better Seizure precautions. Plan Diet: renal DVT Prophylaxis: Heparin Code Status: full code Subjective Date/time seen: 11/27/23 16:57 Interval history: 53yo female with chronic Pastor, CKD, CHF, HTN and cognitive dysfunction (hx of CVA, SDH and intellectual dysability) here for lethargy. Patient is awake, alert but nonverbal. Nods yes when asked if eating okay and slept okay. Shakes head no when asked if she has pain. Exam Narrative: AF 98.3 131/65 71 16 100% ra Gen - NARD Chest - clear anteriorly CV - RRR S1/S2. Tele showing no significant dysrhythmias Abd - Soft, obese, NT - Pastor secured draining clear yellow urine Ext - No left pedal edema. Right AKA Neuro - Alert. nonverbal Psych - pleasant and cooperative Skin - Warm and dry. Objective Data Vital Signs Vital Signs: Vital Signs - 24 hr 11/26/23 18:00 11/26/23 20:18 11/26/23 20:18 Temperature Pulse Rate 86 80 81 Respiratory Rate 16 16 Blood Pre
[2023-11-27] MEDS: MAGNESIUM SULF 2 GM/WATER 50ML 2 GM/50 ML BAG IVPB (19:27)
[2023-11-27] MEDS: ATORVASTATIN 40 MG TABLET 80 MG PO (19:59)
[2023-11-28] VITALS (15 sets, daily range): BP systolic 122–165; BP diastolic 58–78; PULSE 65–91; RESP 18–24; TEMP 36.5–37.2; O2SAT 94–100
[2023-11-28] MEDS: IPRATROPIUM 0.5 MG/ALBUTEROL SULFATE 2.5 MG AMPUL.NEB 3 ML INHALATION ×3 (02:20→14:31)
[2023-11-28 05:03] LABS: Anion Gap 10 mmol/L (4-12); Blood Urea Nitrogen 49 mg/dL (7-17); Calcium 8.3 mg/dL (8.4-10.2); Carbon Dioxide 26 mmol/L (22-30); Chloride 101 mmol/L (98-107); Estimated CRCL calculation 22 ml/min; Estimated Glomerular Filt Rate 15; Glucose 111 mg/dL (65-110); Magnesium 2.2 mg/dL (1.6-2.3); Phenytoin Dilantin 31 ug/mL (10-20); Potassium 4.1 mmol/L (3.4-5.0); Sodium 137 mmol/L (137-145)
--- NOTE | 2023-11-28 05:50 | PC.NURSE ---
This patient, Mirela Preston, was transferred to [facility] on 11/28/23 at 0550. Personal belongings sent with patient. Report given to ANTELMO Ramirez. Appropriate documentation sent with patient.
[2023-11-28] MEDS: ASPIRIN 81 MG CHEWABLE TABLET PO (07:55)
[2023-11-28] MEDS: ISOSORBIDE MONONITRATE 30 MG TAB.ER.24H PO (07:55)
[2023-11-28] MEDS: polyethylene glycoL 3350 17 GM POWD.PACK PO (07:55)
[2023-11-28] MEDS: ESCITALOPRAM OXALATE 10 MG TABLET PO (07:55)
[2023-11-28] MEDS: CLOPIDOGREL BISULFATE 75 MG TABLET PO (07:55)
[2023-11-28] MEDS: BUMETANIDE 1 MG TABLET PO ×2 (07:56→17:18)
[2023-11-28] MEDS: FERROUS SULFATE 325 MG TABLET DR PO ×2 (07:56→17:18)
[2023-11-28] MEDS: PANTOPRAZOLE 40 MG TABLET PO (07:56)
[2023-11-28] MEDS: SODIUM BICARBONATE TAB 650 MG TABLET PO (07:56)
[2023-11-28] MEDS: CEPHALEXIN 250 MG CAPSULE PO ×2 (07:56→20:44)
[2023-11-28] MEDS: HEPARIN SODIUM 5,000 UNITS/ML VIAL 5000 UNITS SUB-Q ×2 (07:56→20:44)
[2023-11-28] MEDS: CALCIUM/VITAMIN D 500 MG/5 MCG (200 I.U.) TABLET 1000 MG PO (07:56)
[2023-11-28] MEDS: carvediloL 25 MG TABLET PO ×2 (07:56→20:44)
[2023-11-28] MEDS: SACUBITRIL/VALSARTAN 49-51 MG TABLET 1 TABLET PO ×2 (07:57→20:44)
[2023-11-28] MEDS: TOLNAFTATE 1% POWDER 45 GM BTL 1 APPLIC TOPICAL ×2 (07:57→20:45)
--- NOTE | 2023-11-28 10:31 | WPDNEURCNPN ---
Assessment and Plan Assessment and plan (1) Intellectual disability: Code(s): F79 - Unspecified intellectual disabilities Status: Acute (2) Morbid obesity with BMI of 50.0-59.9, adult: Code(s): E66.01 - Morbid (severe) obesity due to excess calories; Z68.43 - Body mass index [BMI] 50.0-59.9, adult Status: Acute Plan 1. Dilantin toxicity 2. Underlying chronic medical problems as outlined. Suggestion to hold the Dilantin until the levels come down and subsequently start the Dilantin capsule. Consult date: 11/28/23 HPI: Mirela Preston is a 53 year old female admitted to the hospital through the emergency room for the complaints of increasing lethargy and weakness in addition to history of underlying congestive heart failure COPD and with the information that patient is reportedly alert and oriented x2 at baseline due to intellectual disability and also history of being on oxygen 2L per nasal cannula at baseline. On initial evaluation in the emergency room she was able to answer yes or no she has been taking multiple medications as outlined including phenytoin 125mg b.i.d., and 200mg at night reportedly she is not allergic to any medication and she has ongoing history of stroke, chronic renal disease, chronic subdural hematoma, congestive heart failure, hypertension, and intellectual disability superimposed by major depressive disorder. She smokes 20 cigarettes per day years smoked 20 and does not drink alcohol, on initial eval in the emergency room she was afebrile with normal vital signs normal CBC basic metabolic panel with blood sugar of 52 and negative for influenza a B RSV and SARs COVID, her CT scan of the head was compatible with moderate size old infarct right frontal lobe small infarct at the head of the right caudate nucleus, also chest x-ray was negative and her medications included clopidogrel 75mg daily, aspirin 81mg daily, atorvastatin 80mg daily, phenytoin 200mg 3 times a day, phenytoin level was 32 with repeat being 37 and 31 she is also anemic with hemoglobin 8.1, since admission she has been taking atorvastatin 80mg at night Bumex 1mg twice a day carvedilol 25mg q.12 hours clonidine 0.3mg q.8 hours clopidogrel 75mg daily E subtle low pram 10mg daily hydralazine 25mg q.i.d. phenytoin 125mg q.12 hours . [facility] Past Medical History Medical History Angina pectoris Asthma-COPD overlap syndrome Cerebrovascular accident Chronic kidney disease Chronic subdural hematoma Congestive heart failure Echocardiogram in Apr showed left ventricular dilation with severe global systolic dysfunction with EF of 30%, diastolic noncompliance, left atrial enlarged, no obvious valve dysfunction however somewhat limited due to technically difficult exam due to body habitus. Gastroesophageal reflux disease Hyperlipidemia Hypertension Intellectual disability Iron deficiency anemia Major depressive disorder, recurrent, unspecified Morbid obesity Seizure Vitamin D deficiency Surgical History Surgical History History of right above knee amputation Family History Family History Father Congestive heart failure Hypertension Mother Congestive heart failure Hypertension Social History Social History Social History: Surrogate decision maker: Laxmi Marrero, aunt. Code status: Full code per facility documentation Smoking packs per day: 1 Smoking cigarettes per day: 20.0 Years smoked: 20 Smoking pack-years: 20.00 Smoking status: Unknown if ever smoked Tobacco type: cigarettes Second hand tobacco smoke exposure: No Smoking end date: 02/06/23 Alcohol intake: unknown Substance use: unknown Substance use type: unknown Do You Feel Safe in your Home?: Yes Lack of Transportation:
[2023-11-28] MEDS: SALINE LOCK FLUSH 10 ML IV PUSH ×2 (14:35→20:45)
--- NOTE | 2023-11-28 16:18 | PM.IMPN ---
Progress Note: A&P Assessment and Plan (1) Seizure: Code(s): R56.9 - Unspecified convulsions Status: Acute Assessment and Plan: Dilantin level elevated at 37. Dilatin held Repeat level still elevated but better Resume at lower dose once level better or change to another agent Neuro consulted and appreciated their input Seizure precautions. (2) Urinary tract infection associated with indwelling urethral catheter: Code(s): T83.511A - Infection and inflammatory reaction due to indwelling urethral catheter, initial encounter; N39.0 - Urinary tract infection, site not specified Status: Acute Assessment and Plan: Patient found to be lethargic related to UTI but did not meet SIRS criteria Chronic Pastor exchanged here UA is consistent with UTI. UCx collected. Hx of ESBL EColi so Meropenem started. UCx growing EColi that is relatively landaverde-sensitive. BCx NGTD Abx adjusted. (3) Hyperkalemia: Code(s): E87.5 - Hyperkalemia Status: Acute Assessment and Plan: Potassium 5.5 on admission felt related to CKD. This was treated approrpiated. Potassium better and stable. Continue to monitor (4) Fecal impaction: Code(s): K56.41 - Fecal impaction Status: Acute Assessment and Plan: CT abd/pelvis showing a large ball of stool at the rectum suggestive of constipation with fecal impaction. Attempted disimpaction in ED, stools soft/mushy. She has had large BMs since admisison. Miralax started for prevention. (5) CKD (chronic kidney disease): Code(s): N18.9 - Chronic kidney disease, unspecified Status: Acute Assessment and Plan: Creatinine 4.1 with baseline 3.9 to 4.3 Had a metabolic acidosis on admission probably related to CKD. Cr stable and within her baseline Metabolic acidosis resolved Follow electrolytes, UOP and renal function (6) Congestive heart failure: Code(s): I50.9 - Heart failure, unspecified Status: Acute Assessment and Plan: Laying flat without dyspnea. No clinical evidence of fluid overload. BNP 4520, improved from previous (15,600 in September of 2023). CXR clear. Recent echo (06/2023): EF 20-25% with moderately increased LV wall thickness and mild valvular disease. Currently on Bumex, spironolactone, Entrsto, Hydralazine/Imdur and Coreg. Received lasix IV once in the ED and hydralazine, Clonidine and coreg overnight and BP dropped to 96/48 Currently holding spironolactone, Hydralazine and Clonidinie. Parameters on Bumex, Entresto and Coreg placed BP remaining stable. Add back meds as tolerated Continue daily weights, I&Os and renal function (7) Hypertension: Qualifiers: Hypertension type: unspecified Qualified Code(s): I10 - Essential (primary) hypertension Code(s): I10 - Essential (primary) hypertension Status: Acute Assessment and Plan: Patient's blood pressure was reviewed on 11/27 Blood pressure well controlled Will continue to monitor. As above. Plan Diet: renal DVT Prophylaxis: Heparin Code Status: full code Subjective Date/time seen: 11/28/23 16:18 Interval history: 53yo female with chronic Pastor, CKD, CHF, HTN and cognitive dysfunction (hx of CVA, SDH and intellectual dysability) here for lethargy. Patient is awake, alert but nonverbal. hx difficult to obtain Review of Systems Review of Systems: ROS unobtainable: Yes unobtainable due to mental status Exam Narrative: AF 97.8 123/78 72 20 95% ra Gen - NARD Chest - clear anteriorly CV - RRR S1/S2 Abd - Soft, obese, NT - Pastor secured draining clear yellow urine Ext - No left pedal edema. Right AKA Neuro - Alert. nonverbal Psych - pleasant and cooperative Skin - Warm and dry. small, tense blisters noted right forearm with smaller raised papules withotu change (related to dressing?). No other areas involved. Objective Data Vital Signs Vital Signs: Fernanda
[2023-11-28] MEDS: ATORVASTATIN 40 MG TABLET 80 MG PO (20:44)
[2023-11-29] VITALS (10 sets, daily range): BP systolic 143–150; BP diastolic 73–78; PULSE 68–83; RESP 16–22; TEMP 35.6–36.2; O2SAT 94–96
[2023-11-29] MEDS: IPRATROPIUM 0.5 MG/ALBUTEROL SULFATE 2.5 MG AMPUL.NEB 3 ML INHALATION ×3 (02:56→13:24)
[2023-11-29] MEDS: SALINE LOCK FLUSH 10 ML IV PUSH (05:05)
[2023-11-29] MEDS: ASPIRIN 81 MG CHEWABLE TABLET PO (08:39)
[2023-11-29] MEDS: FERROUS SULFATE 325 MG TABLET DR PO (08:40)
[2023-11-29] MEDS: SODIUM BICARBONATE TAB 650 MG TABLET PO (08:40)
[2023-11-29] MEDS: ESCITALOPRAM OXALATE 10 MG TABLET PO (08:40)
[2023-11-29] MEDS: SACUBITRIL/VALSARTAN 49-51 MG TABLET 1 TABLET PO (08:40)
[2023-11-29] MEDS: CEPHALEXIN 250 MG CAPSULE PO (08:40)
[2023-11-29] MEDS: CLOPIDOGREL BISULFATE 75 MG TABLET PO (08:40)
[2023-11-29] MEDS: carvediloL 25 MG TABLET PO (08:40)
[2023-11-29] MEDS: polyethylene glycoL 3350 17 GM POWD.PACK PO (08:40)
[2023-11-29] MEDS: ISOSORBIDE MONONITRATE 30 MG TAB.ER.24H PO (08:40)
[2023-11-29] MEDS: CALCIUM/VITAMIN D 500 MG/5 MCG (200 I.U.) TABLET 1000 MG PO (08:40)
[2023-11-29] MEDS: BUMETANIDE 1 MG TABLET PO (08:40)
[2023-11-29] MEDS: PANTOPRAZOLE 40 MG TABLET PO (08:41)
[2023-11-29] MEDS: HEPARIN SODIUM 5,000 UNITS/ML VIAL 5000 UNITS SUB-Q (08:41)
[2023-11-29 10:41] LABS: Anion Gap 12 mmol/L (4-12); Blood Urea Nitrogen 50 mg/dL (7-17); Calcium 8.7 mg/dL (8.4-10.2); Carbon Dioxide 24 mmol/L (22-30); Chloride 103 mmol/L (98-107); Estimated CRCL calculation 23 ml/min; Estimated Glomerular Filt Rate 16; Glucose 94 mg/dL (65-110); Phenytoin Dilantin 28 ug/mL (10-20); Potassium 4.4 mmol/L (3.4-5.0); Sodium 139 mmol/L (137-145)
--- NOTE | 2023-11-29 11:22 | PM.DS ---
DS: Admitting Diagnosis Discharge Date 11/28 Admitting Diagnosis Lethargy DS: Discharge Diagnosis Discharge Diagnosis (1) Seizure: Code(s): R56.9 - Unspecified convulsions Status: Acute Assessment and Plan: Dilantin level elevated at 37. Dilatin held Repeat level still elevated but better Resume at lower dose once level better or change to another agent Neuro consulted and appreciated their input Seizure precautions. ok to dc with phenytoin on hold rpt labs in 3 days time and decide on dose then (2) Urinary tract infection associated with indwelling urethral catheter: Code(s): T83.511A - Infection and inflammatory reaction due to indwelling urethral catheter, initial encounter; N39.0 - Urinary tract infection, site not specified Status: Acute Assessment and Plan: Patient found to be lethargic related to UTI but did not meet SIRS criteria Chronic Pastor exchanged here UA is consistent with UTI. UCx collected. Hx of ESBL EColi so Meropenem started. UCx growing EColi that is relatively landaverde-sensitive. BCx NGTD Abx adjusted. (3) Hyperkalemia: Code(s): E87.5 - Hyperkalemia Status: Acute Assessment and Plan: Potassium 5.5 on admission felt related to CKD. This was treated approrpiated. Potassium better and stable. Continue to monitor (4) Fecal impaction: Code(s): K56.41 - Fecal impaction Status: Acute Assessment and Plan: CT abd/pelvis showing a large ball of stool at the rectum suggestive of constipation with fecal impaction. Attempted disimpaction in ED, stools soft/mushy. She has had large BMs since admisison. Miralax started for prevention. (5) CKD (chronic kidney disease): Code(s): N18.9 - Chronic kidney disease, unspecified Status: Acute Assessment and Plan: Creatinine 4.1 with baseline 3.9 to 4.3 Had a metabolic acidosis on admission probably related to CKD. Cr stable and within her baseline Metabolic acidosis resolved Follow electrolytes, UOP and renal function (6) Congestive heart failure: Code(s): I50.9 - Heart failure, unspecified Status: Acute Assessment and Plan: Laying flat without dyspnea. No clinical evidence of fluid overload. BNP 4520, improved from previous (15,600 in September of 2023). CXR clear. Recent echo (06/2023): EF 20-25% with moderately increased LV wall thickness and mild valvular disease. Currently on Bumex, spironolactone, Entrsto, Hydralazine/Imdur and Coreg. Received lasix IV once in the ED and hydralazine, Clonidine and coreg overnight and BP dropped to 96/48 Currently holding spironolactone, Hydralazine and Clonidinie. Parameters on Bumex, Entresto and Coreg placed BP remaining stable. Add back meds as tolerated Continue daily weights, I&Os and renal function (7) Hypertension: Qualifiers: Hypertension type: unspecified Qualified Code(s): I10 - Essential (primary) hypertension Code(s): I10 - Essential (primary) hypertension Status: Acute Assessment and Plan: Patient's blood pressure was reviewed on 11/27 Blood pressure well controlled Will continue to monitor. As above. DS: Summary Hospital Course Hospital Course: 53yo female with chronic Pastor, CKD, CHF, HTN and cognitive dysfunction (hx of CVA, SDH and intellectual dysability) here for lethargy. Patient is awake, alert but nonverbal. hx difficult to obtain admitted with phenytoin toxicity, UTI and fecel impactation history of SEizures Time Spent with Patient Time attestation: Total time spent providing and/or coordinating discharge services:50 minutes on the day if DC Exam Narrative: morbidly obese Chest - clear anteriorly CV - RRR S1/S2 Abd - Soft, obese, NT - Pastor secured draining clear yellow urine Ext - No left pedal edema. Right AKA Neuro - Alert. nonverbal Psych - pleasant and cooperative Skin - Warm and dry. small, tense blisters note
[2023-11-29] MEDS: TOLNAFTATE 1% POWDER 45 GM BTL 1 APPLIC TOPICAL (12:55)
[2023-11-29 12:59] LABS: SARS-CoV-2 RNA PCR Negative (Negative)
== END 2023-11-29 14:35 | DRG 466 ==
LOC: ANHED 10:56 → ANHIMU 14:40 → ANH3MEDSUR 11-28 05:51
PROVIDERS: Student in an Organized Health Care Education/Training Program; Admitting Provider Internal Medicine; Emergency Provider Student in an Organized Health Care Education/Training Program; PCP Hospitalist; Visit Provider Family Medicine
DX: T83.511A Infection and inflammatory reaction due to indwelling urethral catheter, initial encounter (principal); N39.0 Urinary tract infection, site not specified; B96.20 Unspecified Escherichia coli [E. coli] as the cause of diseases classified elsewhere; I13.0 Hypertensive heart and chronic kidney disease with heart failure and stage 1 through stage 4 chronic kidney disease, or unspecified chronic kidney disease; N18.9 Chronic kidney disease, unspecified; K21.9 Gastro-esophageal reflux disease without esophagitis; I50.22 Chronic systolic (congestive) heart failure; J44.1 Chronic obstructive pulmonary disease with (acute) exacerbation; K80.20 Calculus of gallbladder without cholecystitis without obstruction; G40.909 Epilepsy, unspecified, not intractable, without status epilepticus; I44.0 Atrioventricular block, first degree; E87.5 Hyperkalemia; K56.41 Fecal impaction; D50.9 Iron deficiency anemia, unspecified; F32.9 Major depressive disorder, single episode, unspecified; F79 Unspecified intellectual disabilities; E87.21 Acute metabolic acidosis; R68.89 Other general symptoms and signs; E66.01 Morbid (severe) obesity due to excess calories; Z68.41 Body mass index [BMI] 40.0-44.9, adult; Z86.73 Personal history of transient ischemic attack (TIA), and cerebral infarction without residual deficits; Z89.521 Acquired absence of right knee; Z87.891 Personal history of nicotine dependence; Z79.82 Long term (current) use of aspirin; Z89.611 Acquired absence of right leg above knee; Z99.81 Dependence on supplemental oxygen
CPT/HCPCS: 36415; 36569; 36600; 71046; 74176; 80048; 80053; 80185; 81001; 82805; 82948; 83735; 83880; 84100; 84484; 85025; 87040; 87077; 87086; 87088; 87186; 87635; 87637; 93005; 94002; 94003; 94640; 94660; 96365; 96366; 96367; 96375; 96376; 99285; A9270; C1751; G0378; J0612; J0696; J1644; J1815; J1940; J2185; J3475; J7512

== ENCOUNTER 2024-01-15 12:33 | Emergency (ER) | payer BC, SELFPAY ==
[2024-01-15] VITALS (44 sets, daily range): BP systolic 50–145; BP diastolic 26–121; PULSE 78–110; RESP 14–20; TEMP 36.4–36.6; O2SAT 78–100
--- NOTE | ~2024-01-15 | XR_ITS ---
EXAMINATION: XR chest 1V DATE: 01/15/2024 14:13 INDICATION: Weakness. TECHNIQUE: A single frontal view of the chest was obtained. COMPARISON: Chest 2 views 11/24/2023 FINDINGS: There is chronic mild elevation of right hemidiaphragm. There is no pneumonia, pleural effu gregory, or pneumothorax. Cardiomegaly is noted. IMPRESSION: 1. Cardiomegaly. Reviewed, dictated and finalized at location A. IMPRESSION: 1. Cardiomegaly.
--- NOTE | ~2024-01-15 | CT_ITS ---
CT abdomen pelvis wo con Ordering provider: Jonathon Mercado MD History: 53 years Female with . renal failure . Comparison: November 24, 2023 Technique: CT abdomen and pelvis without IV and without oral contrast. Automated exposure control and iterative reconstruction technique were employed. The dose-length product was 1821.98 mGy-cm. Findings: VISUALIZED LOWER CHEST: Groundglass appearance is seen lower lobes which may indicate pneumonitis or edema. Clinical correlation advised. Slight cardiomegaly. UPPER ABDOMINAL ORGANS: Liver: Normal. Gallbladder: Highly suggestive cholelithiasis. Spleen: Normal. Stomach/duodenum: Normal. Pancreas: Normal. Adrenals: Slightly prominent left adrenal gland Kidneys: Small size of the kidneys bilaterally. No definite ureteric stones. The left kidney measures 6.3 and the right 5.4 cm. PELVIC ORGANS: The bladder is underfilled with Pastor's catheter. BOWEL AND MESENTERY: Colon: No evidence of diverticulitis. Fecal material is loaded in the colon more in the rectum with t hickening of the wall of the rectum. No evidence of appendicitis. Small Bowel: Normal. No obstruction. Peritoneum/mesentery: No free air or free fluid. No mesenteric lymphadenopathy. RETROPERITONEUM: Mild atheromatous disease of the abdominal aorta. No retroperitoneal lymphadenopat hy. MUSCULOSKELETAL: Superficial soft tissues: The superficial soft tissues are normal. Bones: Age appropriate degenerative changes of the spine. IMPRESSION: 1. No acute abdominal process with no evidence of appendicitis, diverticulitis or intestinal obstruc tion. 2. Small size of both kidneys with the left measuring 6.3 on the right 5.4 cm. 3. Constipation. 4. Groundglass appearance in both lungs which may indicate pneumonitis versus edema. Clinical correl ation advised. Reviewed, dictated and finalized at location A. IMPRESSION: 1. No acute abdominal process with no evidence of appendicitis, diverticulitis or intestinal obstruction. 2. Small size of both kidneys with the left measuring 6.3 on the right 5.4 cm. 3. Constipation. 4. Groundglass appearance in both lungs which may indicate pneumonitis versus edema. Clinical correlation advised.
[2024-01-15 13:16] LABS: Basophils Percent Auto 0.2 % (0.2-1.2); Eosinophils Absolute Auto 2.3 K/mm3 (0-0.3); Eosinophils Percent Auto 17.9 % (0-4.4); Hematocrit 27.6 % (37.0-47.0); Hemoglobin 8.7 g/dL (12.0-15.0); Immature Granulocyte Absolute 0.06 K/mm3 (0.00-0.031); Immature Granulocyte Percent A 0.5 % (0-0.5); Lymphocytes Absolute Auto 1.67 K/mm3 (0.9-3.2); Mean Corpuscular HGB Conc 31.5 g/dl (32-36); Mean Corpuscular Hemoglobin 29.5 pg (26-34); Mean Corpuscular Volume 93.6 fl (80-100); Mean Platelet Volume 10.5 fl (7.4-10.4); Monocytes Absolute Auto 0.7 K/mm3 (0.1-0.6); Monocytes Percent Auto 5.6 % (2.6-8.5); Neutrophils Absolute Auto 8.1 K/mm3 (1.3-6.7); Neutrophils Percent Auto 62.8 % (45.5-73.1); Platelet Count Result 205 k/mm3 (150-375); Red Blood Count 2.95 M/mm3 (4.2-5.4); Red Cell Distribution Width 15.6 % (11.5-14.5); White Blood Count 12.9 K/mm3 (4.5-10.0)
[2024-01-15 13:27] LABS: Alanine Aminotransferase 35 U/L (6-35); Albumin Level 3.1 g/dL (3.5-5.1); Alkaline Phosphatase 76 U/L (38-126); Anion Gap 15 mmol/L (4-12); Aspartate Amino Transferase 84 U/L (14-36); Bilirubin,Total 0.2 mg/dL (0.2-1.3); Blood Urea Nitrogen 90 mg/dL (7-17); Calcium 8.4 mg/dL (8.4-10.2); Carbon Dioxide 15 mmol/L (22-30); Chloride 103 mmol/L (98-107); Estimated CRCL calculation 11 ml/min; Estimated Glomerular Filt Rate 7; Glucose 106 mg/dL (65-110); Potassium 5.7 mmol/L (3.4-5.0); Sodium 133 mmol/L (137-145)
[2024-01-15 14:42] LABS: Lactic Acid Reflex 1.5 mmol/L (0.7-2.0)
[2024-01-15 14:51] LABS: Add Urine Microscopic? YES; Appearance Urine Turbid (Clear); Bacteria Urine 4+ /hpf; Bilirubin Urine Negative (Negative); Blood Urine 2+ (Negative); Color Urine Yellow (Yellow); Glucose Urine UA Negative (Negative); Ketones Urine Trace mg/dL (Negative); Leukocyte Esterase Ur 3+ LEU/UL (Negative); Need Manual Microscopic Reviewed; Nitrate Urine Negative (Negative); Non Pathogenic Casts >20; Protein Urine 3+ mg/dL (Negative); RBC Urine >100 /hpf (0-2); Specific Grav Ur 1.018 (1.001-1.035); Squamous Epithelial Cell Urine Moderate /hpf (Few); Urobilinogen Urine 0.2 mg/dL (<2.0); WBC Urine 51-100 /hpf (0-3); pH Urine 8.5 (5.0-9.0)
--- NOTE | 2024-01-15 15:15 | ECG_ITS ---
Test Date: 2024-01-15 16:14:29 Measurements Intervals Martin Rate: 85 P: 58 OK: 189 QRS: 4 QRSD: 136 T: 173 QT: 414 QTc: 493 Interpretive Statements SINUS RHYTHM POSSIBLE LEFT ATRIAL ENLARGEMENT LEFT BUNDLE BRANCH BLOCK BASELINE ARTIFACT- I, II, III, AVR, AVL, AVF, V1-V3 ABNORMAL ECG Compared to ECG 11/24/2023 10:03:42 NO SIGNIFICANT CHANGE Electronically Signed On 01-15-2024 16:26:10 CDT by Yasri Thomas D.O.
[2024-01-15 15:18] LABS: Hematocrit 27.9 % (37.0-47.0); Hemoglobin 8.8 g/dL (12.0-15.0); Mean Corpuscular HGB Conc 31.5 g/dl (32-36); Mean Corpuscular Hemoglobin 29.4 pg (26-34); Mean Corpuscular Volume 93.3 fl (80-100); Mean Platelet Volume 10.9 fl (7.4-10.4); Platelet Count Result 215 k/mm3 (150-375); Red Blood Count 2.99 M/mm3 (4.2-5.4); Red Cell Distribution Width 15.5 % (11.5-14.5); White Blood Count 12.1 K/mm3 (4.5-10.0)
--- NOTE | 2024-01-15 15:23 | ED.GENADULT ---
HPI - General Adult General Chief complaint: Skin/Abscess/Foreign Body <Jonathon Mercado MD - Last Filed: 01/15/24 18:08> Stated complaint: blisters all over body <Jonathon Mercado MD - Last Filed: 01/15/24 18:08> Time Seen by Provider: 01/15/24 13:29 <Jonathon Mercado MD - Last Filed: 01/15/24 18:08> History of Present Illness HPI narrative: Patient is a 53-year-old female who presents emergency department with chief complaint of rash. Patient has had a rash since 11/28 and has been progressing where she has felt blisters over her body and arms around her face the patient has had a urinary tract infection and has been treated with antibiotics multiple times in different courses of antibiotics the patient is also had a prior below-knee amputation and has a chronic indwelling Pastor. <Jonathon Mecrado MD - Last Filed: 01/15/24 18:08> Related Data Home medications: Home Medications Medication Instructions Recorded Confirmed acetaminophen 325 mg tablet 650 mg PO Q6H PRN Pain (Scale 08/26/21 11/24/23 (Tylenol) Score 1-3) aspirin 81 mg chewable tablet 81 mg PO DAILY 08/26/21 11/25/23 (Aspirin Childrens) atorvastatin 80 mg tablet (Lipitor) 80 mg PO HS 08/26/21 11/24/23 benzonatate 200 mg capsule 200 mg PO Q8H PRN Cough 08/26/21 11/24/23 calcium carb-vit D3-minerals 600 2 tablet PO DAILY 08/26/21 11/25/23 mg calcium-400 unit tablet ergocalciferol (vitamin D2) 1,250 50,000 unit PO WEEKLY 08/26/21 11/25/23 mcg (50,000 unit) capsule (Vitamin D2) ferrous sulfate 325 mg (65 mg 325 mg PO Q12H 08/26/21 11/25/23 iron) tablet isosorbide mononitrate 30 mg 30 mg PO DAILY 08/26/21 11/24/23 tablet,extended release 24 hr phenytoin 100 mg/4 mL oral 200 mg PO ,,08/26/21 11/25/23 suspension escitalopram oxalate 10 mg tablet 10 mg PO DAILY 10/30/21 11/25/23 spironolactone 25 mg tablet 25 mg PO DAILY 10/30/21 11/25/23 nystatin 100,000 unit/gram topical 1 applic topical PRN PRN Rash to 05/27/23 11/25/23 powder abdominal folds and groin. sacubitril 49 mg-valsartan 51 mg 1 tablet PO Q12H 05/27/23 11/25/23 tablet (Entresto) B-complex with vitamin C 1 cap PO DAILY 09/30/23 11/25/23 carvedilol 25 mg tablet (Coreg) 25 mg PO Q12H 09/30/23 11/25/23 pantoprazole 40 mg tablet,delayed 40 mg PO DAILY 09/30/23 11/24/23 release <Jonathon Mercado MD - Last Filed: 01/15/24 18:08> Allergies/adverse reactions: Allergies Allergy/AdvReac Type Severity Reaction Status Date / Time Penicillins Allergy Hives Verified 01/15/24 12:58 <Jonathon Mercado MD - Last Filed: 01/15/24 18:08> Review of Systems Review of Systems: A 10 system review of systems was completed on the patient and is negative except for what is stated in the HPI. Nursing and ancillary documentation was reviewed. <Jonathon Mercado MD - Last Filed: 01/15/24 18:08> [facility] Past Medical History Medical History: Medical History Angina pectoris Asthma-COPD overlap syndrome Cerebrovascular accident Chronic kidney disease Chronic subdural hematoma Congestive heart failure Echocardiogram in Apr showed left ventricular dilation with severe global systolic dysfunction with EF of 30%, diastolic noncompliance, left atrial enlarged, no obvious valve dysfunction however somewhat limited due to technically difficult exam due to body habitus. Gastroesophageal reflux disease Hyperlipidemia Hypertension Intellectual disability Iron deficiency anemia Major depressive disorder, recurrent, unspecified Morbid obesity Seizure Vitamin D deficiency <Jonathon Mercado MD - Last Filed: 01/15/24 18:08> Surgical History Surgical History: Surgical History History of right above knee amputation <Jonathon Mercado MD - Last Filed: 09
[2024-01-15 15:40] LABS: Troponin I 0.077 ng/mL (0.000-0.034)
[2024-01-15 15:41] LABS: Alanine Aminotransferase 35 U/L (6-35); Albumin Level 3.1 g/dL (3.5-5.1); Alkaline Phosphatase 75 U/L (38-126); Anion Gap 12 mmol/L (4-12); Aspartate Amino Transferase 79 U/L (14-36); Bilirubin,Total 0.1 mg/dL (0.2-1.3); Blood Urea Nitrogen 87 mg/dL (7-17); Calcium 8.3 mg/dL (8.4-10.2); Carbon Dioxide 17 mmol/L (22-30); Chloride 100 mmol/L (98-107); Estimated CRCL calculation 11 ml/min; Estimated Glomerular Filt Rate 7; Glucose 100 mg/dL (65-110); Lipase 313 U/L (23-300); Potassium 5.5 mmol/L (3.4-5.0); Sodium 129 mmol/L (137-145)
[2024-01-15 15:42] LABS: CRP 12.2 mg/dL (<1.0)
[2024-01-15 15:47] LABS: Eosinophils Absolute Manual 1.69 K/mm3 (0.02-0.50); Eosinophils Percent Manual 14 % (0-4); Lymphocytes Absolute Manual 1.57 K/mm3 (1.1-4.5); Monocytes Absolute Manual 0.36 K/mm3 (0.1-0.90); Monocytes Percent Manual 3 % (3-9); Neutrophils Percent Manual 70 % (46-73); Platelet Estimate Adequate (Adequate); Total Cells Counted 100
[2024-01-15 15:48] LABS: Anisocytosis 1+; Hypochromasia 1+; Schistocytes None Seen
[2024-01-15] MEDS: ASPIRIN 81 MG CHEWABLE TABLET 324 MG PO (16:12)
[2024-01-15 17:12] LABS: INR 1.3; Partial Thromboplastin Time 32.8 Seconds (22.3-36.8); Prothrombin Time 16.7 Seconds (11.1-14.7)
--- NOTE | 2024-01-15 17:33 | PC.NURSE ---
Provider speaking with family about placing a central line
[2024-01-15] MEDS: NOREPINEPHRINE 8 MG/D5W 250 ML 8 MG/250 ML BAG 9.38 MG IV CONT (18:05)
[2024-01-15] MEDS: methylPREDNISolone SOD SUCC 125 MG VIAL IV PUSH (19:09)
[2024-01-15] MEDS: VANCOMYCIN 2,000 MG/NS 500 ML 2,000 MG/500 ML BAG 250 MG IVPB (19:30)
[2024-01-15] MEDS: CEFEPIME 0.5 GM in SODIUM CHLORIDE 0.9% IV 50 ML IVPB (20:12)
[2024-01-15] MEDS: CENTRAL LINE FLUSH 10 ML IV PUSH (21:44)
[2024-01-15] MEDS: DOPamine 400 MG/D5W 250 ML 400 MG/250 ML BAG 12.32 MG IV CONT (21:48)
--- NOTE | 2024-01-16 00:57 | PC.NURSE ---
Report called to Catracho Bazan at [phone]
[2024-01-16] MEDS: methylPREDNISolone SOD SUCC 125 MG VIAL 60 MG IV PUSH (01:48)
== END 2024-01-16 06:15 | disposition short-term general hospital (02) ==
PROVIDERS: Emergency Medicine; Emergency Provider Emergency Medicine; PCP Hospitalist
DX: L51.2 Toxic epidermal necrolysis [Lyell] (principal); N17.9 Acute kidney failure, unspecified; N39.0 Urinary tract infection, site not specified; R65.21 Severe sepsis with septic shock; J44.9 Chronic obstructive pulmonary disease, unspecified; Z86.73 Personal history of transient ischemic attack (TIA), and cerebral infarction without residual deficits; I13.0 Hypertensive heart and chronic kidney disease with heart failure and stage 1 through stage 4 chronic kidney disease, or unspecified chronic kidney disease; N18.9 Chronic kidney disease, unspecified; I50.9 Heart failure, unspecified; E78.5 Hyperlipidemia, unspecified; E66.01 Morbid (severe) obesity due to excess calories; Z68.42 Body mass index [BMI] 45.0-49.9, adult; E55.9 Vitamin D deficiency, unspecified; D50.9 Iron deficiency anemia, unspecified; K21.9 Gastro-esophageal reflux disease without esophagitis; F79 Unspecified intellectual disabilities; Z87.891 Personal history of nicotine dependence; Z89.611 Acquired absence of right leg above knee; Z79.899 Other long term (current) drug therapy; Z79.82 Long term (current) use of aspirin; K59.00 Constipation, unspecified; R91.8 Other nonspecific abnormal finding of lung field; I44.7 Left bundle-branch block, unspecified; R94.31 Abnormal electrocardiogram [ECG] [EKG]
CPT/HCPCS: 36415; 36556; 71045; 74176; 80053; 81001; 83605; 83690; 84484; 85025; 85610; 85730; 86140; 87040; 87077; 87086; 87088; 87181; 93005; 96361; 96365; 96366; 96367; 96375; 99285; A9270; C1751; J0692; J0696; J1265; J2919; J3370; J7030